=== PATIENT | male | born 1955 | race Caucasian/White ===

== ENCOUNTER 2019-04-24 08:01 | Outpatient (RCR) | payer OTHER, SELFPAY ==
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
--- NOTE | 2019-05-07 08:10 | PCPTNOTE ---
Mr. Orantes has received 4 Pysical therapy treatments. Treatments have consisted of moist heat and interferential electrical stimulation to posterior neck to decrease pain and decrease muscle tightness. Initially patient was given neuromuscular retraining but he returned on the next visit reporting of increase symptoms. We then began manual therapy with soft tissue mobilization, cranial release, cervical distraction and stretching with the patient. He reports he feels a little better when he leaves here but his symptoms do return. If you have any question please give us a call at [phone]. Thank you. Denver Stubbs PTA Supervised by: Victor Hugo Montilla DPT
== END 2019-05-28 13:20 | disposition home or self-care (01) ==
LOC: CHSPT 08:01
DX: S06.0X0A Concussion without loss of consciousness, initial encounter (principal); H83.2X3 Labyrinthine dysfunction, bilateral
CPT/HCPCS: 97014; 97112; 97140; 97162; G0283

== ENCOUNTER 2019-08-23 16:28 | Outpatient (CLI) | payer OTHER, SELFPAY ==
[2019-08-23 17:22] LABS: Carcinoembryonic Antigen 1.1 ng/mL (0.0-3.0)
== END 2019-08-23 16:29 | disposition home or self-care (01) ==
PROVIDERS: PCP Family Medicine; Visit Provider Surgery
DX: C18.9 Malignant neoplasm of colon, unspecified (principal)
CPT/HCPCS: 36415; 82378

== ENCOUNTER 2019-09-10 10:31 | Outpatient (CLI) | payer OTHER, SELFPAY ==
--- NOTE | ~2019-09-10 | CT_ITS ---
EXAMINATION: CT abdomen pelvis wo con DATE: 09/10/2019 10:46 INDICATION: Right upper quadrant abdominal pain. TECHNIQUE: Computed tomography (CT) of the abdomen and pelvis was performed without intravenous contr ast. Automated exposure control and iterative reconstruction technique were employed. The dose-length product was 567.15 mGy-cm. COMPARISON: CT abdomen and pelvis 12/10/2018, 09/13/2017 FINDINGS: The visualized portions of the lung bases demonstrate a 5 mm nodule in left lower lobe, sta ble from 08/17/2017, likely benign. No pleural effusion. The heart size is normal. There are coronary a rtery calcifications. No pericardial effusion. There are surgical clips around the gastroesophageal j unction. The liver and spleen are normal. There is a gallstone in the gallbladder, which is normal in size. The pancreas, adrenal glands, and kidneys are normal. There is no urolithiasis. The prostate i s mildly enlarged. There is diverticulosis of the colon without evidence of diverticulitis. There are changes of right hemicolectomy. There are no pathologically enlarged lymph nodes. There is no free i ntraperitoneal fluid. There is mild thoracolumbar spondylosis. IMPRESSION: 1. Cholelithiasis. No evidence of acute cholecystitis. Reviewed, dictated and finalized at location A.
== END 2019-09-10 10:32 | disposition home or self-care (01) ==
PROVIDERS: PCP Family Medicine; Visit Provider Family Medicine
DX: R10.11 Right upper quadrant pain (principal); R61 Generalized hyperhidrosis; Z85.038 Personal history of other malignant neoplasm of large intestine; K80.20 Calculus of gallbladder without cholecystitis without obstruction
CPT/HCPCS: 74176

== ENCOUNTER 2019-09-20 07:35 | Outpatient (CLI) | payer OTHER, SELFPAY ==
--- NOTE | ~2019-09-20 | NM_ITS ---
EXAMINATION: NM hepatobiliary wo pharm DATE: 09/20/2019 10:32 INDICATION: Right upper quadrant abdominal pain. COMPARISON: CT abdomen and pelvis 09/10/2019 TECHNIQUE: 5.0 mCi Tc-99m mebrofenin (Choletec) was administered intravenously. Scintigraphic images of the abdomen were obtained for one hour. Then, the patient drank 8 oz Ensure, and imaging was cont inued for 60 minutes. FINDINGS: There is normal clearance of radiotracer from the blood pool. There is homogeneous tracer u ptake by the liver. Activity progresses to the bowel and gallbladder. Gallbladder ejection fraction (GBEF) was 30%. Note that with this technique, normal GBEF >= 33%. IMPRESSION: 1. Low gallbladder ejection fraction, consistent with gallbladder dysfunction and/or chronic cholecy stitis. Reviewed, dictated and finalized at location A. IMPRESSION: 1. Low gallbladder ejection fraction, consistent with gallbladder dysfunction and/or chronic cholecystitis.
== END 2019-09-20 07:36 | disposition home or self-care (01) ==
PROVIDERS: PCP Family Medicine; Visit Provider Family Medicine
DX: R10.11 Right upper quadrant pain (principal); R93.89 Abnormal findings on diagnostic imaging of other specified body structures
CPT/HCPCS: 78226; A9537

== ENCOUNTER 2019-10-17 16:42 | Outpatient (CLI) | payer OTHER, SELFPAY ==
[2019-10-17 17:35] LABS: Alanine Aminotransferase 21 U/L (4-50); Albumin Level 4.2 g/dL (3.5-5.1); Alkaline Phosphatase 49 U/L (38-126); Amylase 96 U/L (30-110); Aspartate Amino Transferase 27 U/L (17-59); Bilirubin,Total 0.9 mg/dL (0.2-1.3); Lipase 52 U/L (23-300)
[2019-10-17 17:38] LABS: Blood Urea Nitrogen 18 mg/dL (9-20); Calcium 9.1 mg/dL (8.4-10.2); Carbon Dioxide 30 mmol/L (22-30); Chloride 103 mmol/L (98-107); Estimated Glomerular Filt Rate > 60; Glucose 117 mg/dL (75-110); Potassium 4.2 mmol/L (3.4-5.0); Sodium 140 mmol/L (137-145)
== END 2019-10-17 16:43 | disposition home or self-care (01) ==
PROVIDERS: PCP Family Medicine; Referring Provider Anesthesiology; Visit Provider Surgery
DX: Z01.812 Encounter for preprocedural laboratory examination (principal); K80.20 Calculus of gallbladder without cholecystitis without obstruction; E11.9 Type 2 diabetes mellitus without complications
CPT/HCPCS: 36415; 80048; 80076; 82150; 83690; 86850; 86900; 86901

== ENCOUNTER 2019-10-18 00:20 | Outpatient (CLI) | payer OTHER, SELFPAY ==
[2019-10-19 00:18] LABS: SARS-CoV-2 RNA PCR Negative
== END 2019-10-18 00:21 | disposition home or self-care (01) ==
LOC: ANHCOVIDDT 00:20
PROVIDERS: PCP Family Medicine; Visit Provider Surgery
DX: Z01.812 Encounter for preprocedural laboratory examination (principal); Z11.59 Encounter for screening for other viral diseases
CPT/HCPCS: 87635; C9803; U0003

== ENCOUNTER 2019-10-18 09:18 | Outpatient (CLI) | payer OTHER, SELFPAY ==
--- NOTE | 2019-10-18 10:12 | ECG_ITS ---
Measurements Intervals [place] Rate: 74 P: 35 ID: 154 QRS: 45 QRSD: 106 T: 118 QT: 384 QTc: 428 Interpretive Statements SINUS RHYTHM ANTEROSEPTAL INFARCT, AGE INDETERMINATE BORDERLINE ST-T WAVE ABNORMALITY- ANTEROLAT/LAT LEADS BASELINE ARTIFACT- II, III, AVF ABNORMAL ECG Electronically Signed On 10-18-2019 10:37:05 CDT by Leon Roldan D.O.
== END 2019-10-18 09:19 | disposition home or self-care (01) ==
PROVIDERS: PCP Family Medicine; Visit Provider Anesthesiology
DX: I10 Essential (primary) hypertension (principal); R94.31 Abnormal electrocardiogram [ECG] [EKG]
CPT/HCPCS: 93005

== ENCOUNTER 2019-10-21 01:36 | Day surgery (SDC) | payer OTHER, SELFPAY ==
[2019-10-11 15:24] VITALS: BMI 26.4
[2019-10-21] VITALS (7 sets, daily range): BP systolic 132–178; BP diastolic 77–99; PULSE 63–91; RESP 16–21; TEMP 36.5–36.6; O2SAT 98–100
[2019-10-21] MEDS: LACTATED RINGERS 1,000 ML 30 ML IV CONT ×2 (11:30→14:43)
--- NOTE | 2019-10-21 11:44 | WPDANESEPPF ---
Anes - Initial Pre Proc Eval Procedure: Operation Date: 10/21/19 14:00 Proposed Procedures p Laparoscopic Cholecystectomy, Possible Open - Luis Parish DO Date/Time: 10/21/19 11:44 Surgeon: Luis Parish DO Pre Op Diagnosis: Symptomatic Cholelithiasis Patient Data Age: 64 Gender: M Height: 6 ft Weight: 88.45 kg Allergies Allergy/AdvReac Type Severity Reaction Status Date / Time No Known Allergies Allergy Verified 10/11/19 14:53 Home Medications Medication Instructions Recorded Confirmed Type carvedilol 12.5 mg tablet 12.5 mg PO Q12H 03/05/19 10/11/19 History glimepiride 4 mg tablet 4 mg PO QAM 03/05/19 10/11/19 History metformin 850 mg tablet 850 mg PO BID 03/05/19 10/11/19 History omeprazole 40 mg capsule,delayed 40 mg PO DAILY 03/05/19 10/11/19 History release simvastatin 40 mg tablet 40 mg PO HS 03/05/19 10/11/19 History aspirin 81 mg tablet,delayed 81 mg PO DAILY 09/24/19 10/11/19 History release insulin glargine 100 unit/mL 32 unit SUB-Q HS 09/24/19 10/11/19 History subcutaneous solution lisinopril 10 mg tablet 10 mg PO DAILY 09/24/19 10/11/19 History trazodone 50 mg PO HS PRN 10/11/19 10/11/19 History Patient hx anesthesia problems: none Family hx anesthesia problems: none PMFSH Past Medical History Medical History (Updated 10/21/19 @ 11:44 by Chris Whitman MD) CAD (coronary artery disease) Cancer of transverse colon Carpal tunnel syndrome Diabetes GERD (gastroesophageal reflux disease) HTN (hypertension) Surgical History Surgical History (Updated 10/21/19 @ 11:44 by Chris Whitman MD) Finger amputee H/O hernia repair 2018 H/O right knee surgery Hiatal hernia with GERD 1989 History of hand surgery History of right hemicolectomy with ileocolic anastomsis in 2019 Hx of CABG Family History Family History Sibling Family history of malignant neoplasm Father Family history of chronic obstructive pulmonary disease Hypertension Heart disease Mother Hypertension Cancer Sibling Cancer Sibling Cancer Sibling Cancer Social History Social History Smoking status: Former smoker Smoking end date: 04/17/02 Alcohol intake: never Substance use: never Gender identity (if verbalized by the patient): Male Anes - Eval Final PreProcedure Day of Procedure 10/21/19 11:44 Patient weight: overweight Heart: regular rate and rhythm Lungs: decreased breath sounds Airway: Mallampati scale class II Neurological: alert and oriented Last oral intake: >/= 8 hours ASA classification: III Emergent: no Anesthetic plan: proceed Anesthesia type and monitoring: general ETT and standard monitoring Informed Consent: The patient's anesthetic plan and its attendant risks and benefits were discussed with the patient/family/POA. Questions were solicited and answers provided to the satisfaction of the patient/family/POA.
[2019-10-21 12:04] LABS: Glucose Point of Care 196 (65-105)
[2019-10-21] MEDS: IBUPROFEN IV 800 MG/200 ML 800 MG/200 ML BAG 400 MG IVPB (12:15)
--- NOTE | 2019-10-21 13:25 | WPDHPUPDATE1 ---
History and Physical Update Update Date/Time: 10/21/19 13:25 History and Physical has been reviewed, including an updated exam of the patient. There are NO changes in the patient's condition. Risks, benefits, and alternatives have been discussed and questions answered. Patient agrees to proceed with procedure.
[2019-10-21] MEDS: ceFAZolin 2 GM/D5W 50 ML 2 GM/50 ML BAG IVPB (13:41)
[2019-10-21] MEDS: BUPIVACAINE/EPINEPHRINE 0.5% 30 ML VIAL INFILTRATE (14:00)
--- NOTE | 2019-10-21 15:04 | SUR.PHASEI ---
DR WESTBROOK SPEAKING WITH .
--- NOTE | 2019-10-21 15:06 | PM.PROC ---
Procedure Note - Detailed Date of procedure: 10/21/19 Pre-op diagnosis: Symptomatic Cholelithiasis Post-op diagnosis: same Procedure performed: Laparoscopic Cholecystectomy Description of procedure: Procedure as well as risks, benefits, and alternatives were discussed with patient. Written consent was obtained and placed in chart prior to procedure. The patient was brought back to surgical suite. Patient was placed in supine position on operating table. Time-out was done to confirm patient and procedure. Patient was then intubated by the anesthesia department. Abdomen was prepped and draped in sterile fashion using chlorhexidine prep. 0.5% bupivacaine with epinephrine was infiltrated at each site of incision. An 11 millimeter vertical incision was made at the inferior portion of the umbilicus using a 15 blade scalpel. Blunt dissection was carried down to the linea alba. The linea alba was then incised using a 15 blade scalpel. The peritoneum was then bluntly entered. An 11 millimeter trocar was inserted and cabon dioxied insuflation was used to create a pneumoperitoneum. The camera was inserted and the abdomen was inspected. The patient was placed in reverse Trendelenberg position and rotated slightly to the left. A 5 millimeter incision was made in the epigastric region, and a 5 millimeter trocar was inserted under direct visualization. Two 5 millimeter incisions were made in the right upper quadrant, and two 5 millimeter trocars were inserted under direct visualization. The gallbladder was identified and grasped at the fundus and retracted superiorly. It was then grasped at the infundibulum retracted laterally. Careful dissection around the neck of the gallbladder was performed using blunt dissection with a [place] grasper and hook electrocautery. The cystic duct was identified, and a window was created behind it. The cystic artery was also identified and a window was created behind it. The critical view of safety was identified, visualizing the cystic duct running directly into the neck of the gallbladder, and the cystic artery running directly into the wall of the gallbladder. A 5 millimeter clip rand maker was then used to place 2 clips proximally and 1 clip distally on both the cystic duct and cystic artery. They were then both transected using endoscopic scissors. Once safely away from the haily hepatitis, the gallbladder was dissected free from the liver bed using hook electrocautery. Hemostasis was achieved along the way. The gallbladder was removed completely and then removed through the umbilical port. The liver bed was then inspected. Hemostasis appeared adequate, and our clips appeared secure. The area was gently irrigated with sterile saline. No other abnormalities were seen. The patient was flattened out in bed, and 1 final inspection was made around the abdominal cavity. The ports were then removed under direct visualization, the camera was removed, and the pneumoperitoneum was released. The fascia of the umbilical incision was approximated using an 0 Vicryl [id number] suture. The skin of the incisions was approximated using 4-0 Monocryl subcuticular sutures. Exofin glue was applied on top. The patient was then awakened from anesthesia, extubated, and transferred to recovery. Anesthesia: GETA and local (0.5% bupivicaine with epinephrine) Surgeon: Luis Parish DO Estimated blood loss (mL): 5 Pathology: yes Complications: No immediate complications Condition: stable Disposition: same day Findings: This is a 64-year-old man who presented with right upper quadrant pain off and on for the past several months. He had undergone CT of his abdomen and pelvis which showed evidence of cholelithiasis. He had a gallbladder HIDA scan a also which showed slightly decreased gallbladder ejection fraction at 30%. Discussions were made with the patient was treatment options, and decision was made to proceed with laparoscopic cholecy
[2019-10-22 07:35] LABS: Glucose Point of Care 215 (65-105)
== END 2019-10-21 16:10 | disposition home or self-care (01) ==
PROVIDERS: PCP Family Medicine; Visit Provider Surgery
PROC: 0FT44ZZ Resection of Gallbladder, Percutaneous Endoscopic Approach (ICD-10-PCS; CPT 47562; principal; 2019-10-21 14:00)
DX: K80.10 Calculus of gallbladder with chronic cholecystitis without obstruction (principal); I10 Essential (primary) hypertension; I25.10 Atherosclerotic heart disease of native coronary artery without angina pectoris; E11.9 Type 2 diabetes mellitus without complications; K21.9 Gastro-esophageal reflux disease without esophagitis; Z85.038 Personal history of other malignant neoplasm of large intestine; Z79.82 Long term (current) use of aspirin; Z79.4 Long term (current) use of insulin; Z79.84 Long term (current) use of oral hypoglycemic drugs; Z95.1 Presence of aortocoronary bypass graft; Z90.49 Acquired absence of other specified parts of digestive tract; Z98.0 Intestinal bypass and anastomosis status; Z87.891 Personal history of nicotine dependence
CPT/HCPCS: 47562; 87635; 88304; 93005; A9270; C9803; J0131; J0330; J0690; J1100; J1170; J1741; J2250; J2405; J2704; J3010; J7030; J7120; U0003

== ENCOUNTER 2020-03-17 13:53 | Outpatient (CLI) | payer OTHER, SELFPAY ==
[2020-03-17 15:24] LABS: Carcinoembryonic Antigen 1.6 ng/mL (0.0-3.0)
== END 2020-03-17 13:54 | disposition home or self-care (01) ==
PROVIDERS: PCP Family Medicine; Visit Provider Surgery
DX: C18.9 Malignant neoplasm of colon, unspecified (principal)
CPT/HCPCS: 36415; 82378

== ENCOUNTER 2020-11-29 18:17 | Inpatient (IN) | payer OTHER, MEDICARE, SELFPAY ==
--- NOTE | ~2020-11-29 | XR_ITS ---
EXAMINATION: XR foot RT min 3V DATE: 11/29/2020 18:52 INDICATION: Pain, swelling and erythema in the region of the second metatarsophalangeal joint after s tepping on a nail. TECHNIQUE: Dorsoplantar, two oblique and lateral views of the right foot were obtained. COMPARISON: None. FINDINGS: Bone alignment is normal. No acute fracture. No radiopaque foreign bodies. Juxta articular erosion at the medial head of the first proximal phalanx with corticated margins and overhanging edges suggesti ng gout. Additional lucency at the head of the fourth proximal phalanx which could represent an addit ional erosion or potentially an old healed fracture. Mild polyarticular osteoarthritis at the first m etatarsophalangeal and multiple tarsal metatarsal and interphalangeal joints. Moderate-sized Achilles and plantar calcaneal spurs. Additional enthesophytes at the talar and lateral malleolar insertion o f the anterior talofibular ligament which may represent sequela of chronic sprain. Prominent soft tis kj swelling over the dorsum of the foot and about the ankle. IMPRESSION: 1. No acute fracture or radiopaque foreign body. 2. Erosion at the head of the head of the first proximal phalanx and likely at the head of the fourth proximal phalanx which are suspicious for gout. Reviewed, dictated and finalized at location A.
--- NOTE | ~2020-11-29 | MR_ITS ---
EXAMINATION: MR foot RT wo/w con DATE: 11/30/2020 18:10 INDICATION: Right foot puncture wound and cellulitis. TECHNIQUE: Magnetic resonance imaging (MRI) of the right foot was performed without and with 15 mL Mu ltiHance intravenous contrast. Sequences included sagittal STIR FSE and T1-weighted FSE and short-axi s and long-axis T1-weighted FSE and T2-weighted FS FSE. Postcontrast sequences included short-axis an d long-axis T1-weighted FS FSE. COMPARISON: Right foot radiographs 11/29/2020 FINDINGS: Bone alignment is normal. No acute fracture. There is mild to moderate osteoarthritis of ma ny of the midfoot joints, metatarsophalangeal joints, and interphalangeal joints. An erosion at the m edial aspect of the head of first proximal phalanx may be secondary to gout. There are small effusion s of the first-third metatarsophalangeal joints. Lisfranc ligament is intact. There is widespread mil d to moderate fatty atrophy of the musculature. There is widespread increased T2-weighted signal inte nsity in the musculature, consistent with subacute on chronic denervation. There is widespread subcut aneous edema in the foot. There are foci of gas in the soft tissues between the third and fourth digi ts. IMPRESSION: 1. No specific evidence of osteomyelitis. 2. Foci of gas in the plantar soft tissues between the third and fourth digits, likely introduced by the puncture wound. 3. Polyarticular osteoarthritis. 4. Erosion at medial aspect of head of first proximal phalanx, which may be secondary to gout. 5. Small effusions of first-third metatarsophalangeal joints. Reviewed, dictated and finalized at location B. IMPRESSION: 1. No specific evidence of osteomyelitis. 2. Foci of gas in the plantar soft tissues between the third and fourth digits, likely introduced by the puncture wound. 3. Polyarticular osteoarthritis. 4. Erosion at medial aspect of head of first proximal phalanx, which may be sec ondary to gout. 5. Small effusions of first-third metatarsophalangeal joints.
--- NOTE | ~2020-11-29 | XR_ITS ---
XR chest PICC line 12/01/2020 14:29 Indication: PICC line placement Procedure: AP portable chest Comparison: Comparison to multiple prior studies sequentially, with oldest reviewed study dated 08/07. Findings: PICC line tip in the SVC. The cardiomediastinal silhouette. Status post median sternotomy f or CABG. Stable lingular atelectasis/scarring. No acute focal pneumonia, edema, effusion or pneumotho rax. Impression: 1: PICC line tip in the SVC. Reviewed, dictated and finalized at location A. Impression: 1: PICC line tip in the SVC.
--- NOTE | ~2020-11-29 | US_ITS ---
EXAMINATION:US venous doppler LE RT INDICATION:Right lower extremity swelling TECHNIQUE: Multiple grayscale, color flow and Doppler images of the right lower extremity deep venous systems were obtained and reviewed. COMPARISON:No prior studies for comparison. FINDINGS: The common femoral, superficial femoral and popliteal veins demonstrate normal respiratory variation, augmentation and compressibility. Color flow is also seen within the posterior tibial, pe roneal, greater saphenous and profunda veins. IMPRESSION: 1: No lower extremity deep venous thrombosis. Reviewed, dictated and finalized at location A.
[2020-11-29 18:22] VITALS: BP 140/68; PULSE 83; RESP 18; TEMP 36.5; O2SAT 100
[2020-11-29 18:31] LABS: Basophils Percent Auto 0.2 % (0.2-1.2); Eosinophils Absolute Auto 0.1 K/mm3 (0-0.3); Eosinophils Percent Auto 1.2 % (0-4.4); Hematocrit 37.6 % (42.0-52.0); Hemoglobin 12.6 g/dL (14.0-18.0); Immature Granulocyte Absolute 0.03 K/mm3 (0.00-0.031); Immature Granulocyte Percent A 0.4 % (0-0.5); Lymphocytes Absolute Auto 1.01 K/mm3 (0.9-3.2); Lymphocytes Percent Auto 11.9 % (18.3-44.2); Mean Corpuscular HGB Conc 33.5 g/dl (32-36); Mean Corpuscular Hemoglobin 30.4 pg (26-34); Mean Corpuscular Volume 90.8 fl (80-100); Mean Platelet Volume 9.6 fl (7.4-10.4); Monocytes Absolute Auto 0.6 K/mm3 (0.1-0.6); Monocytes Percent Auto 7.1 % (2.6-8.5); Neutrophils Absolute Auto 6.7 K/mm3 (1.3-6.7); Neutrophils Percent Auto 79.2 % (45.5-73.1); Platelet Count Result 192 k/mm3 (150-375); Red Blood Count 4.14 M/mm3 (4.6-6.20); Red Cell Distribution Width 11.9 % (11.5-14.5); White Blood Count 8.5 K/mm3 (4.5-10.0)
[2020-11-29 19:02] LABS: Alanine Aminotransferase 33 U/L (4-50); Albumin Level 3.6 g/dL (3.5-5.1); Alkaline Phosphatase 114 U/L (38-126); Anion Gap 5 mmol/L (8-16); Aspartate Amino Transferase 25 U/L (17-59); Blood Urea Nitrogen 13 mg/dL (9-20); Calcium 9.3 mg/dL (8.4-10.2); Carbon Dioxide 30 mmol/L (22-30); Chloride 100 mmol/L (98-107); Estimated CRCL calculation 113 ml/min; Estimated Glomerular Filt Rate > 60; Glucose 349 mg/dL (65-110); Potassium 4.3 mmol/L (3.4-5.0); Sodium 135 mmol/L (137-145)
[2020-11-29 22:09] VITALS: BP 148/92; PULSE 80; RESP 20; TEMP 36.7; O2SAT 99
--- NOTE | 2020-11-29 22:19 | ED.GENADULT ---
HPI - General Adult General Chief complaint: Extremity Injury, Lower Stated complaint: sent from urgent care/ stepped on nail Time Seen by Provider: 11/29/20 19:23 History of Present Illness HPI narrative: Patient is a 67-year-old gentleman who presents the emergency department with chief complaint of right lower extremity cellulitis. Patient reports that he stepped on a nail that went through his shoe and subsequently has developed redness of the dorsum of his right foot. Patient reports streaking up his right leg patient states that it has become painful and reports that he was seen in urgent care and was sent to the emergency department for further evaluation. The patient has been taking Augmentin since Monday without improvement. Related Data Home Medications Medication Instructions Recorded Confirmed carvedilol 12.5 mg tablet 12.5 mg PO Q12H 03/05/19 10/21/19 glimepiride 4 mg tablet 4 mg PO QAM 03/05/19 10/21/19 metformin 850 mg tablet 850 mg PO BID 03/05/19 10/21/19 omeprazole 40 mg capsule,delayed 40 mg PO DAILY 03/05/19 10/21/19 release simvastatin 40 mg tablet 40 mg PO HS 03/05/19 10/21/19 aspirin 81 mg tablet,delayed 81 mg PO DAILY 09/24/19 10/21/19 release insulin glargine 100 unit/mL 32 unit SUB-Q HS 09/24/19 10/21/19 subcutaneous solution lisinopril 10 mg tablet 10 mg PO DAILY 09/24/19 10/21/19 trazodone 50 mg PO HS PRN 10/11/19 10/21/19 Allergies Allergy/AdvReac Type Severity Reaction Status Date / Time No Known Allergies Allergy Verified 10/21/19 12:21 Review of Systems Review of Systems: A 10 system review of systems was completed on the patient and is negative except for what is stated in the HPI. Nursing and ancillary documentation was reviewed. [facility] Past Medical History Medical History CAD (coronary artery disease) Cancer of transverse colon Carpal tunnel syndrome Diabetes GERD (gastroesophageal reflux disease) HTN (hypertension) Surgical History Surgical History Finger amputee H/O hernia repair 2019 H/O right knee surgery Hiatal hernia with GERD 1990 History of hand surgery History of right hemicolectomy with ileocolic anastomsis in 2019 Hx of CABG Family History Family History Sibling Family history of malignant neoplasm Father Family history of chronic obstructive pulmonary disease Hypertension Heart disease Mother Hypertension Cancer Sibling Cancer Sibling Cancer Sibling Cancer Social History Social History Smoking status: Former smoker Smoking end date: 04/17/02 Alcohol intake: never Substance use: never Gender identity (if verbalized by the patient): Male Exam Narrative: GENERAL: Well-appearing, well-nourished, and in no acute distress. HEAD: Normocephalic, atraumatic. EYES: PERRLA and EOMI. ENT: Nares clear, no rhinorrhea or epistaxis. Mucous membranes moist. NECK: Supple. CHEST: Clear to auscultation. No respiratory distress. HEART: Regular rate and rhythm. No murmur heard. Normal peripheral pulses. ABDOMEN: Soft, nontender, nondistended, normal active bowel sounds. EXTREMITIES: Normal range of motion. No edema. There is erythema of the dorsum of the right foot extending above the ankle. There is a small puncture wound on the plantar aspect of the right foot SKIN: Warm, dry, no rash. NEURO: No focal deficits. Alert and oriented x3. PSYCH: Normal mood and affect. Course Vital Signs Vital signs: Vital Signs Temperature 36.5 C 11/29/20 18:22 Pulse Rate 83 11/29/20 18:22 Respiratory Rate 18 11/29/20 18:22 Blood Pressure 140/68 11/29/20 18:22 Pulse Oximetry 100 11/29/20 18:22 Temperature 36.7 C 11/29/20 22:09 Pulse Rate 80 11/29/20 22:09 Respirator
--- NOTE | 2020-11-29 22:28 | PC.NURSE ---
Patient's bedside glucose is 257.
[2020-11-29 22:33] LABS: Glucose Point of Care 257 mg/dl (65-105)
[2020-11-29 22:38] LABS: Lactic Acid Reflex 1.1 mmol/L (0.7-2.1)
[2020-11-30] VITALS (32 sets, daily range): BP systolic 121–182; BP diastolic 67–100; PULSE 64–80; RESP 16–20; TEMP 36.1–36.9; O2SAT 94–100; BMI 23.3
--- NOTE | 2020-11-30 02:33 | PM.IMHP ---
H&P: HPI History of Present Illness Date/Time: 11/30/20 02:33 Chief Complaint: Right leg swelling and pain Narrative: Patient is a 67-year-old gentleman who presents the emergency department with chief complaint of right lower extremity swelling and pain. He reports he stepped on a nail that went through his shoe through his so all the way to his top of his feet. He developed redness of the dorsum of the right foot. Call his primary care doc was unable to see him that day and hence was put on antibiotics Augmentin. The swelling increased and the leg became more painful and hence he went to urgent care. He was sent to the ER for further evaluation. He reports warmth in his right lower extremity up to mid leg and redness in the area but no fever or chills. Review of Systems Review of Systems: - CONSTITUTIONAL: Denies weight loss, fever and chills. - HEENT: Denies changes in vision and hearing - RESPIRATORY: Denies SOB and cough. - CV: Denies palpitations and CP. - GI: Denies abdominal pain, nausea, vomiting and diarrhea. - : Denies dysuria and urinary frequency. - MSK: Denies myalgia and joint pain. Reports Right leg pain and swelling - SKIN: Denies rash and pruritus. - NEUROLOGICAL: Denies headache and syncope. - PSYCHIATRIC: Denies recent changes in mood. Denies anxiety and depression. All systems reviewed & are unremarkable except as noted in HPI and below Constitutional: Constitutional: Reports fatigue and Reports weakness Neurologic: Reports weakness Endocrine: Endocrine: Reports fatigue [facility] Past Medical History Medical History (Updated 11/30/20 @ 03:30 by Jace Flor MD) CAD (coronary artery disease) Status post CABG Cancer of transverse colon Status post right hemicolectomy Carpal tunnel syndrome Diabetes GERD (gastroesophageal reflux disease) HTN (hypertension) Surgical History Surgical History Finger amputee H/O hernia repair 2019 H/O right knee surgery Hiatal hernia with GERD 1989 History of hand surgery History of right hemicolectomy with ileocolic anastomsis in 2019 Hx of CABG Family History Family History Sibling Family history of malignant neoplasm Father Family history of chronic obstructive pulmonary disease Hypertension Heart disease Mother Hypertension Cancer Sibling Cancer Sibling Cancer Sibling Cancer Social History Social History Smoking status: Former smoker Smoking end date: 04/17/02 Alcohol intake: never Substance use: never Gender identity (if verbalized by the patient): Male Meds Home Medications and Allergies Home Medications Medication Instructions Recorded Confirmed Type carvedilol 12.5 mg tablet 12.5 mg PO Q12H 03/05/19 10/21/19 History glimepiride 4 mg tablet 4 mg PO QAM 03/05/19 10/21/19 History metformin 850 mg tablet 850 mg PO BID 03/05/19 10/21/19 History omeprazole 40 mg capsule,delayed 40 mg PO DAILY 03/05/19 10/21/19 History release simvastatin 40 mg tablet 40 mg PO HS 03/05/19 10/21/19 History aspirin 81 mg tablet,delayed 81 mg PO DAILY 09/24/19 10/21/19 History release insulin glargine 100 unit/mL 32 unit SUB-Q HS 09/24/19 10/21/19 History subcutaneous solution lisinopril 10 mg tablet 10 mg PO DAILY 09/24/19 10/21/19 History trazodone 50 mg PO HS PRN 10/11/19 10/21/19 History hydrocodone-acetaminophen [[place]] 1 - 2 tablet PO Q4H PRN #10 tablet 10/21/19 Rx Allergies Allergy/AdvReac Type Severity Reaction Status Date / Time No Known Allergies Allergy Verified 10/21/19 12:21 Vital Signs Vital Signs - 24 hr 11/29/20 18:22 11/29/20 22:09 11/30/20 00:21 Temperature 97.7 F 98.1 F 97.9 F Pulse Rate 83 80 73 Respiratory Rate 18 20 18 Blood Pressure 140/68 148/92 H 156/93 H Pulse Oximetry 100 9
[2020-11-30] MEDS: TETANUS/DIPHTHERIA TOXOIDS ADSORB 0.5 ML VIAL (*BKC) IM (03:46)
[2020-11-30] MEDS: TETANUS IMMUNE GLOBULIN 250 UNITS/ML SYRINGE IM (03:47)
--- NOTE | 2020-11-30 06:30 | ECG_ITS ---
Measurements Intervals [place] Rate: 74 P: 35 AL: 138 QRS: 23 QRSD: 110 T: 93 QT: 391 QTc: 436 Interpretive Statements SINUS RHYTHM CONSIDER ANTERIOR INFARCT, AGE INDETERMINATE BORDERLINE ST-T WAVE ABNORMALITY- ANTEROLAT/HIGH LAT LEADS BASELINE ARTIFACT- I, III, AVL ABNORMAL ECG Electronically Signed On 11-30-2020 7:28:10 CDT by Leon Roldan D.O.
[2020-11-30 06:32] LABS: Glucose Point of Care 178 mg/dl (65-105)
--- NOTE | 2020-11-30 06:39 | PC.NURSE ---
0630 patient states he is having some chest pain and headache. ERP notified, MARIO do EKG.
[2020-11-30] MEDS: ACETAMINOPHEN 325 MG TABLET 650 MG PO (06:46)
--- NOTE | 2020-11-30 07:28 | PM.IMPN ---
Progress Note: A&P Assessment and Plan (1) Puncture wound of foot, right: Qualifiers: Encounter type: initial encounter Qualified Code(s): S91.331A - Puncture wound without foreign body, right foot, initial encounter Code(s): S91.331A - Puncture wound without foreign body, right foot, initial encounter Status: Acute Assessment and Plan: Tetanus prophylaxis Tdap received on 03/24/2020. No other tetanus dosing present in the past, check record in [facility] web site. Received another dose of tetanus booster along with tetanus immunoglobulin. Continue antibiotics with imipenem and vancomycin. Pain control with [place] and morphine. Deescalate opiates if pain is adequately controlled. (2) Cellulitis of foot, right: Code(s): L03.115 - Cellulitis of right lower limb Status: Acute Assessment and Plan: Infectious disease service recommendation appreciated. Continue imipenem and vancomycin until 12/27. Longer duration if MRI is concerning for complications. Orthopedic service recommendations appreciated. MRI of the foot is pending for any abscess formation. (3) Diabetes: Code(s): E11.9 - Type 2 diabetes mellitus without complications Status: Acute Assessment and Plan: Continue insulin sliding scale. Hemoglobin A1c is 13.2. His home medication has not been reconciled yet. (4) HTN (hypertension): Code(s): I10 - Essential (primary) hypertension Status: Acute Assessment and Plan: Continue to monitor. (5) CAD (coronary artery disease): Code(s): I25.10 - Atherosclerotic heart disease of [place] coronary artery without angina pectoris Status: Acute Assessment and Plan: Continue aspirin. He did complain of chest pain yesterday in the emergency department. EKG was done which was negative for any acute ischemic changes. (6) Cancer of transverse colon: Code(s): C18.4 - Malignant neoplasm of transverse colon Status: Acute Assessment and Plan: Continue to monitor. Additional Plan DVT prophylaxis Lovenox Full code Subjective Date/time seen: 11/30/20 07:28 Review of Systems Review of Systems: All systems reviewed & are unremarkable except as noted in HPI and below Exam Narrative: GENERAL: Well-appearing, well-nourished, and in no acute distress. NECK: Supple. Nontender CHEST: Clear to auscultation. No respiratory distress. HEART: Regular rate and rhythm. No murmur heard. Normal peripheral pulses. ABDOMEN: Soft, nontender, nondistended EXTREMITIES: Normal range of motion. Edema and swollen right lower leg with warmth up to mid leg. Right foot is swollen and tense tender and warm to touch. There is erythema of the dorsum of the right foot extending above the ankle. There is a small puncture wound on the plantar aspect of the right foot with small ulcer noted. NEURO: Alert and oriented x3. PSYCH: Normal mood and affect. Objective Data Vital Signs Vital Signs: Vital Signs - 24 hr 11/29/20 18:22 11/29/20 22:09 11/30/20 00:21 Temperature 36.5 C 36.7 C 36.6 C Pulse Rate 83 80 73 Respiratory Rate 18 20 18 Blood Pressure 140/68 148/92 H 156/93 H Pulse Oximetry 100 99 99 11/30/20 00:22 11/30/20 00:23 11/30/20 00:30 Temperature Pulse Rate Respiratory Rate Blood Pressure 156/93 H Pulse Oximetry 99 99 99 11/30/20 00:45 11/30/20 01:00 11/30/20 01:01 Temperature Pulse Rate Respiratory Rate Blood Pressure 160/100 H Pulse Oximetry 98 94 98 11/30/20 01:21 11/30/20 01:22 11/30/20 01:30 Temperature Pulse Rate Respiratory Rate Blood Pressure 146/74 H Pulse Oximetry 99 99 99 11/30/20 02:01 11/30/20 03:00 11/30/20 03:01 Temperature 36.8 C Pulse Rate 64 Respiratory Rate 17 Blood Pressure 121/67 134/73 Pulse Oximetry 97 97 11/30/20 03:15 11/30/20 03:30 11/30/20 03:45 Temperature Pulse Rate Respiratory Rate
--- NOTE | 2020-11-30 07:45 | ADMGEN ---
This patient, Ramirez Orantes Jr., was admitted to Medical Room 260-01. Patient/family oriented to hospital policies and general routines including ID bracelet, bed and alarms, visiting hours, pain management, procedures, bathroom and other care routines, personal items, smoking policy, room service/diet, and visiting hours. Information on how to activate the Rapid Response Team has been discussed. Patient/Family are encouraged to report perceived risks to care and to ask questions if they do not understand what they are told or what they should do.
[2020-11-30 08:02] LABS: Glucose Point of Care 175 mg/dl (65-105)
[2020-11-30 08:13] LABS: Basophils Percent Auto 0.7 % (0.2-1.2); Eosinophils Absolute Auto 0.1 K/mm3 (0-0.3); Eosinophils Percent Auto 1.5 % (0-4.4); Hematocrit 36.1 % (42.0-52.0); Hemoglobin 12.4 g/dL (14.0-18.0); Immature Granulocyte Absolute 0.04 K/mm3 (0.00-0.031); Immature Granulocyte Percent A 0.7 % (0-0.5); Lymphocytes Absolute Auto 0.82 K/mm3 (0.9-3.2); Lymphocytes Percent Auto 14.1 % (18.3-44.2); Mean Corpuscular HGB Conc 34.3 g/dl (32-36); Mean Corpuscular Hemoglobin 30.5 pg (26-34); Mean Corpuscular Volume 88.7 fl (80-100); Mean Platelet Volume 9.7 fl (7.4-10.4); Monocytes Absolute Auto 0.5 K/mm3 (0.1-0.6); Monocytes Percent Auto 8.7 % (2.6-8.5); Neutrophils Absolute Auto 4.3 K/mm3 (1.3-6.7); Neutrophils Percent Auto 74.3 % (45.5-73.1); Platelet Count Result 191 k/mm3 (150-375); Red Blood Count 4.07 M/mm3 (4.6-6.20); Red Cell Distribution Width 11.5 % (11.5-14.5); White Blood Count 5.8 K/mm3 (4.5-10.0)
[2020-11-30 09:08] LABS: Anion Gap 3 mmol/L (8-16); Blood Urea Nitrogen 12 mg/dL (9-20); Calcium 8.6 mg/dL (8.4-10.2); Carbon Dioxide 29 mmol/L (22-30); Chloride 99 mmol/L (98-107); Estimated CRCL calculation 162 ml/min; Estimated Glomerular Filt Rate > 60; Glucose 179 mg/dL (65-110); Potassium 4.1 mmol/L (3.4-5.0); Sodium 131 mmol/L (137-145)
[2020-11-30 10:07] LABS: Hemoglobin A1C 13.2 % (<5.7)
[2020-11-30] MEDS: HYDROcodone/acetaminophen (*CRX) 5-325 MG TABLET 1 TAB PO ×2 (10:19→21:07)
--- NOTE | 2020-11-30 11:36 | PM.CNOR ---
Assessment and Plan Additional Plan of 65-year-old male who has had a puncture wound right foot 4 days ago. Appears to have cellulitis in the foot but does not seem to be tracking at the ankle at this point. He is on antibiotics. I have consult Infectious Disease. He is scheduled to go down for an MRI scan with and without contrast. Abscess will need to be ruled out in the foot. There is an abscess on MRI scan then open debridement will be needed. Will review the MRI scan once it is done and proceed accordingly. History of Present Illness HPI Consult date: 11/30/20 Chief complaint: Right lower extremity cellulitis/puncture wound PMFSH Past Medical History Medical History (Updated 11/30/20 @ 03:30 by Jace Flor MD) CAD (coronary artery disease) Status post CABG Cancer of transverse colon Status post right hemicolectomy Carpal tunnel syndrome Diabetes GERD (gastroesophageal reflux disease) HTN (hypertension) Surgical History Surgical History Finger amputee H/O hernia repair 2018 H/O right knee surgery Hiatal hernia with GERD 1989 History of hand surgery History of right hemicolectomy with ileocolic anastomsis in 2019 Hx of CABG Family History Family History Sibling Family history of malignant neoplasm Father Family history of chronic obstructive pulmonary disease Hypertension Heart disease Mother Hypertension Cancer Sibling Cancer Sibling Cancer Sibling Cancer Social History Social History Smoking status: Former smoker Second hand tobacco smoke exposure: No Additional smoking assessment comments: quit smoking over 30 years ago Alcohol intake: never Substance use: never Substance use type: does not use Gender identity (if verbalized by the patient): Male Spiritual care concerns: No Meds Home Medications and Allergies Home Medications Medication Instructions Recorded Confirmed Type aspirin 81 mg tablet,delayed 81 mg PO DAILY 09/24/19 11/30/20 History release Allergies Allergy/AdvReac Type Severity Reaction Status Date / Time No Known Allergies Allergy Verified 11/30/20 09:03 Vital Signs Vital Signs - 24 hr 11/29/20 18:22 11/29/20 22:09 11/30/20 00:21 Temperature 36.5 C 36.7 C 36.6 C Pulse Rate 83 80 73 Respiratory Rate 18 20 18 Blood Pressure 140/68 148/92 H 156/93 H Pulse Oximetry 100 99 99 11/30/20 00:22 11/30/20 00:23 11/30/20 00:30 Temperature Pulse Rate Respiratory Rate Blood Pressure 156/93 H Pulse Oximetry 99 99 99 11/30/20 00:45 11/30/20 01:00 11/30/20 01:01 Temperature Pulse Rate Respiratory Rate Blood Pressure 160/100 H Pulse Oximetry 98 94 98 11/30/20 01:21 11/30/20 01:22 11/30/20 01:30 Temperature Pulse Rate Respiratory Rate Blood Pressure 146/74 H Pulse Oximetry 99 99 99 11/30/20 02:01 11/30/20 03:00 11/30/20 03:01 Temperature 36.8 C Pulse Rate 64 Respiratory Rate 17 Blood Pressure 121/67 134/73 Pulse Oximetry 97 97 11/30/20 03:15 11/30/20 03:30 11/30/20 03:45 Temperature Pulse Rate Respiratory Rate Blood Pressure Pulse Oximetry 99 99 100 11/30/20 04:00 11/30/20 04:01 11/30/20 04:24 Temperature Pulse Rate Respiratory Rate Blood Pressure 156/86 H Pulse Oximetry 99 100 97 11/30/20 04:30 11/30/20 04:45 11/30/20 05:00 Temperature Pulse Rate Respiratory Rate Blood Pressure 142/74 H Pulse Oximetry 99 99 99 11/30/20 05:01 11/30/20 05:15 11/30/20 05:30 Temperature Pulse Rate Respiratory Rate Blood Pressure Pulse Oximetry 99 99 99 11/30/20 05:45 11/30/20 06:00 11/30/20 07:02 Temperature 36.8 C 36.9 C Pulse Rate 68 Respiratory Rate 17 17 Blood Pressure 182/87 H 160/88 H Pulse Oximetry 100 97 10
--- NOTE | 2020-11-30 12:32 | WPDINFPN2 ---
Progress Note: A&P Assessment and Plan (1) Cellulitis of foot, right: Code(s): L03.115 - Cellulitis of right lower limb Status: Acute Assessment and Plan: Puncture wound with cellulitis REC Imipenem and Vanc through 12/27, longer if MRI concerning for complication Subjective Date/time seen: 11/30/20 12:32 Objective Data Vital Signs Vital Signs: Vital Signs - 24 hr 11/29/20 18:22 11/29/20 22:09 11/30/20 00:21 Temperature 36.5 C 36.7 C 36.6 C Pulse Rate 83 80 73 Respiratory Rate 18 20 18 Blood Pressure 140/68 148/92 H 156/93 H Pulse Oximetry 100 99 99 11/30/20 00:22 11/30/20 00:23 11/30/20 00:30 Temperature Pulse Rate Respiratory Rate Blood Pressure 156/93 H Pulse Oximetry 99 99 99 11/30/20 00:45 11/30/20 01:00 11/30/20 01:01 Temperature Pulse Rate Respiratory Rate Blood Pressure 160/100 H Pulse Oximetry 98 94 98 11/30/20 01:21 11/30/20 01:22 11/30/20 01:30 Temperature Pulse Rate Respiratory Rate Blood Pressure 146/74 H Pulse Oximetry 99 99 99 11/30/20 02:01 11/30/20 03:00 11/30/20 03:01 Temperature 36.8 C Pulse Rate 64 Respiratory Rate 17 Blood Pressure 121/67 134/73 Pulse Oximetry 97 97 11/30/20 03:15 11/30/20 03:30 11/30/20 03:45 Temperature Pulse Rate Respiratory Rate Blood Pressure Pulse Oximetry 99 99 100 11/30/20 04:00 11/30/20 04:01 11/30/20 04:24 Temperature Pulse Rate Respiratory Rate Blood Pressure 156/86 H Pulse Oximetry 99 100 97 11/30/20 04:30 11/30/20 04:45 11/30/20 05:00 Temperature Pulse Rate Respiratory Rate Blood Pressure 142/74 H Pulse Oximetry 99 99 99 11/30/20 05:01 11/30/20 05:15 11/30/20 05:30 Temperature Pulse Rate Respiratory Rate Blood Pressure Pulse Oximetry 99 99 99 11/30/20 05:45 11/30/20 06:00 11/30/20 07:02 Temperature 36.8 C 36.9 C Pulse Rate 68 Respiratory Rate 17 17 Blood Pressure 182/87 H 160/88 H Pulse Oximetry 100 97 100 11/30/20 07:30 11/30/20 08:00 Temperature 36.1 C L Pulse Rate 74 Respiratory Rate 16 18 Blood Pressure 138/84 Pulse Oximetry 100 100 Intake/Output Intake/Output: Intake & Output 11/27/20 11/28/20 11/29/20 11/30/20 23:59 23:59 23:59 23:59 Intake Total 100 1190 Balance 100 1190 Meds/Results Medications: Active Medications Generic Name Dose Route Start Last Admin Trade Name Freq PRN Reason Stop Dose Admin Acetaminophen 650 mg 11/29/20 22:15 11/30/20 06:46 Acetaminophen 325 Mg Tablet PO 650 mg Q4H PRN Administration Mild Pain (1-3) or Fever Hydrocodone Bitart/Acetaminophen 1 tab 11/29/20 22:15 11/30/20 10:19 Hydrocodone/Acetaminophen (*Crx) 5-325 Mg Tablet PO 1 tab Q4H PRN Administration Pain Rated 4-6 Dextrose 12.5 gm 11/30/20 03:24 Dextrose 50% 25 Gm/50 Ml Syringe IV PUSH PRN PRN Hypoglycemia Protocol Glucagon 1 mg 11/30/20 03:24 Glucagon For Inj 1 Mg Vial IM PRN PRN Hypoglycemia Protocol Glucose 15 gm 11/30/20 03:24 Glucose Oral Gel 15 Gm Of Glucse In 37.5 Gm Tube PO PRN PRN Hypoglycemia Protocol Imipenem/Cilastatin Sodium 500 mg in 100 mls @ 300 mls/hr 11/30/20 06:00 11/30/20 12:16 Primaxin 500 Mg/D5w 100 Ml IVPB 300 mls/hr Q6H RANDA Administration Vancomycin HCl 1,500 mg in 500 mls @ 333.333 mls/hr 11/30/20 11:00 11/30/20 12:05 Vancomycin 1,500 Mg/D5w 500 Ml IVPB Infused Q12H RANDA Infusion Dextrose 1,000 mls @ 100 mls/hr 11/30/20 03:24 Dextrose 5% 1,000 Ml IVPB PRN PRN Hypoglycemia Protocol Insulin Aspart 2 - 5 units 11/30/20 08:00 11/30/20 08:24 Insulin Aspart (*Bkc) 100 Units/Ml SUB-Q Not Given TIDWM RANDA Protocol Morphine Sulfate 4 mg 11/29/20 22:15 Morphine Sulfate (*Crx) 4 Mg/Ml Inj IV PUSH Q2H PRN Pain Rated 7-10 Ondansetron HCl 4 mg 11/29/20 22:15 Ondansetron Inj
[2020-11-30 12:37] LABS: Glucose Point of Care 239 mg/dl (65-105)
[2020-11-30] MEDS: INSULIN ASPART (*BKC) 100 UNITS/ML SUB-Q (12:38)
--- NOTE | 2020-11-30 17:02 | CONS_ITS ---
DATE OF CONSULTATION: 11/30/2020 REASON FOR CONSULTATION: Cellulitis of the right foot. HISTORY OF PRESENT ILLNESS: A 65-year-old male with diabetes mellitus. He reports his sugars generally are in the low 100s; however, in the last month, as he was unable to take his usual diabetic medication, he has been on no therapy. In particular, he was on one medicine for heart disease and one medicine for his diabetes, but these caused side effects including dizziness and fatigue. His physician stopped both of them at the patient's request, or the patient stopped on his own. His physician had prescribed a new medication, which was not yet available from the pharmacy. The patient does not remember the names of any of these 3 medications. The patient has had previous puncture wounds to the right foot with nails, although these seemed to heal within 10 days. Three days before admission, the patient stepped on a piece of plywood with a protruding nail. This entered his foot in the area of the third metatarsal head and went through his shoe, his sock, and into the dorsum of the foot. He did feel pain promptly and removed the nail, but did not perform first aid, nor did he examine the foot. Later that day, he took off his shoe and noted a bloody sock. Swelling then began that afternoon or that evening and the following day, the swelling was worse. He then called his physician who could not see him, but prescribed Augmentin. This had no effect over the next 48 hours, and as directed he then presented to the hospital and was admitted. He has been given imipenem and vancomycin. No other injuries. He has had previous arthroscopic knee surgery to the right knee over 20 years ago. Otherwise, no operations. He has no prosthetic devices in place. He knows of no vascular compromise to the right lower extremity. No fever, chills, or sweats. ALLERGIES: NONE KNOWN. HABITS: Quit smoking 30 years ago. No alcohol. No illicit drugs. CURRENT MEDICATIONS: No immunosuppressants. PAST MEDICAL HISTORY: In addition to the above, CAD with prior CABG, colon cancer with partial colectomy, carpal tunnel surgery, GERD, hypertension, previous hiatal hernia repair with some kind of a band, amputation of the right index finger. FAMILY HISTORY: COPD, cancer, hypertension. 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 He is . His is getting close to longterm. Lives locally. REVIEW OF SYSTEMS: 14-point review otherwise negative. PHYSICAL EXAMINATION: GENERAL: This is a middle-aged male, who appears his actual age. No acute distress. VITAL SIGNS: Afebrile since arrival, 74, 16, 138/84, 100% saturation. SKIN: Warm and dry. No generalized rashes. EENT: The conjunctivae are normal. Pupils equal, round, reactive to light. No paranasal sinus erythema, edema or tenderness. Oropharynx, oral mucosa normal. Teeth in good repair. NECK: No meningismus or masses. NODES: He has no femoral nor cervical adenopathy. LUNGS: Clear to auscultation and percussion. Good air entry. CARDIAC: Regular rate and rhythm. No murmur, gallop, or rub. Popliteal, dorsalis pedis, posterior tibial pulses all 2+ and equal. ABDOMEN: No organomegaly. No masses. Nontender. Nondistended. Normal bowel sounds. No bruits. EXTREMITIES: Left leg is . He does have diabetic dermopathy, however, over the [place]. On the right, he has 1+ pitting and nonpitting edema of the entire right foot. He has mild erythema over the distal aspect of the foot sparing the toes. He has a puncture wound as described above, which is closed and with crust. No purulence. No tenderness. There is mild warm
[2020-11-30 18:38] LABS: Glucose Point of Care 193 mg/dl (65-105)
[2020-11-30 23:07] LABS: Glucose Point of Care 290 mg/dl (65-105)
[2020-12-01 05:46] LABS: Basophils Percent Auto 0.5 % (0.2-1.2); Eosinophils Absolute Auto 0.1 K/mm3 (0-0.3); Eosinophils Percent Auto 1.2 % (0-4.4); Hematocrit 40.5 % (42.0-52.0); Hemoglobin 13.8 g/dL (14.0-18.0); Immature Granulocyte Absolute 0.04 K/mm3 (0.00-0.031); Immature Granulocyte Percent A 0.5 % (0-0.5); Lymphocytes Absolute Auto 0.95 K/mm3 (0.9-3.2); Lymphocytes Percent Auto 12.1 % (18.3-44.2); Mean Corpuscular HGB Conc 34.1 g/dl (32-36); Mean Corpuscular Hemoglobin 30.5 pg (26-34); Mean Corpuscular Volume 89.6 fl (80-100); Mean Platelet Volume 9.6 fl (7.4-10.4); Monocytes Absolute Auto 0.8 K/mm3 (0.1-0.6); Monocytes Percent Auto 9.7 % (2.6-8.5); Neutrophils Absolute Auto 5.9 K/mm3 (1.3-6.7); Platelet Count Result 220 k/mm3 (150-375); Red Blood Count 4.52 M/mm3 (4.6-6.20); Red Cell Distribution Width 11.4 % (11.5-14.5); White Blood Count 7.8 K/mm3 (4.5-10.0)
[2020-12-01 05:56] LABS: Anion Gap 5 mmol/L (8-16); Blood Urea Nitrogen 12 mg/dL (9-20); Calcium 8.9 mg/dL (8.4-10.2); Carbon Dioxide 31 mmol/L (22-30); Chloride 92 mmol/L (98-107); Estimated CRCL calculation 133 ml/min; Estimated Glomerular Filt Rate > 60; Glucose 225 mg/dL (65-110); Potassium 4.6 mmol/L (3.4-5.0); Sodium 128 mmol/L (137-145)
[2020-12-01 06:00] VITALS: BP 138/78; PULSE 79; RESP 21; TEMP 36.2; O2SAT 100
[2020-12-01] MEDS: HYDROcodone/acetaminophen (*CRX) 5-325 MG TABLET 1 TAB PO ×2 (06:12→20:44)
--- NOTE | 2020-12-01 06:41 | PM.PNORT ---
Progress Note: A&P Additional Plan Right foot it is looking much better today. Much less swelling. Still little bit of redness in the foot but overall significantly improved from yesterday. MRI scan was done and 5:00 a.m. yesterday afternoon but images are not up on PACS and has not been read by the radiologist yet. Hopefully will be able review these later today. Appreciate Dr. Lau's recommendations on IV treatments. They have discussed with the patient setting up home IV care. We will try look at the images on PACS later today. Subjective Subjective Date/Time Seen: 12/01/20 06:41 Objective Data Vital Signs Vital Signs: Vital Signs - 24 hr 11/30/20 07:02 11/30/20 07:30 11/30/20 08:00 Temperature 36.9 C 36.1 C L Pulse Rate 68 74 Respiratory Rate 17 16 18 Blood Pressure 160/88 H 138/84 Pulse Oximetry 100 100 100 11/30/20 14:00 11/30/20 22:00 Temperature 36.2 C L 36.3 C L Pulse Rate 80 71 Respiratory Rate 18 20 Blood Pressure 146/75 H 160/82 H Pulse Oximetry 100 99 Intake/Output Intake/Output: Intake & Output 11/28/20 11/29/20 11/30/20 12/01/20 23:59 23:59 23:59 23:59 Intake Total 100 2570 Balance 100 2570 Meds/Results Medications: Active Medications Generic Name Dose Route Start Last Admin Trade Name Freq PRN Reason Stop Dose Admin Acetaminophen 650 mg 11/29/20 22:15 11/30/20 06:46 Acetaminophen 325 Mg Tablet PO 650 mg Q4H PRN Administration Mild Pain (1-3) or Fever Hydrocodone Bitart/Acetaminophen 1 tab 11/30/20 13:07 12/01/20 06:12 Hydrocodone/Acetaminophen (*Crx) 5-325 Mg Tablet PO 1 tab Q6HR PRN Administration Pain Rated 4-6 Dextrose 12.5 gm 11/30/20 03:24 Dextrose 50% 25 Gm/50 Ml Syringe IV PUSH PRN PRN Hypoglycemia Protocol Glucagon 1 mg 11/30/20 03:24 Glucagon For Inj 1 Mg Vial IM PRN PRN Hypoglycemia Protocol Glucose 15 gm 11/30/20 03:24 Glucose Oral Gel 15 Gm Of Glucse In 37.5 Gm Tube PO PRN PRN Hypoglycemia Protocol Imipenem/Cilastatin Sodium 500 mg in 100 mls @ 300 mls/hr 11/30/20 06:00 12/01/20 06:06 Primaxin 500 Mg/D5w 100 Ml IVPB 100 mls/hr Q6H RANDA Administration Vancomycin HCl 1,500 mg in 500 mls @ 333.333 mls/hr 11/30/20 11:00 11/30/20 23:37 Vancomycin 1,500 Mg/D5w 500 Ml IVPB 250 mls/hr Q12H RANDA Administration Dextrose 1,000 mls @ 100 mls/hr 11/30/20 03:24 Dextrose 5% 1,000 Ml IVPB PRN PRN Hypoglycemia Protocol Insulin Aspart 2 - 5 units 11/30/20 08:00 11/30/20 18:20 Insulin Aspart (*Bkc) 100 Units/Ml SUB-Q Not Given TIDWM RANDA Protocol Morphine Sulfate 2 mg 11/30/20 13:07 Morphine Sulfate (*Crx) 4 Mg/Ml Inj IV PUSH Q6HR PRN Pain Rated 7-10 Ondansetron HCl 4 mg 11/29/20 22:15 Ondansetron Inj 4 Mg/2 Ml Vial IV PUSH Q4H PRN Nausea Radiology Results: ITS Impressions Foot X-Ray 11/29/20 19:17 IMPRESSION: 1. No acute fracture or radiopaque foreign body. 2. Erosion at the head of the head of the first proximal phalanx and likely at the head of the fourth proximal phalanx which are suspicious for gout. Venous Doppler Study 11/30/20 09:57 IMPRESSION: 1: No lower extremity deep venous thrombosis. Labs Labs: Laboratory Results - last 24 hr 11/30/20 11/30/20 11/30/20 07:50 07:50 07:50 WBC 5.8 RBC 4.07 L Hgb 12.4 L Hct 36.1 L MCV 88.7 MCH 30.5 MCHC 34.3 RDW 11.5 Plt Count 191 MPV 9.7 Immature Gran % (Auto) 0.7 H Neut % (Auto) 74.3 H Lymph % (Auto) 14.1 L [place] % (Auto) 8.7 H Eos % (Auto) 1.5 Baso % (Auto) 0.7 Lymph # (Auto) 0.82 L [place] # (Auto) 0.5 Eos # (Auto) 0.1 Baso # (Auto) 0.0 Abs Immat Gran (auto) 0.04 H Absolute Neuts (auto) 4.3 Absolute Nucleated RBC 0.0 Nucleated RBC % 0.0 Sodium 131 L Potassium 4.1 Chloride 99 Carbon Dioxide 29 Anion
[2020-12-01 07:55] LABS: Glucose Point of Care 201 mg/dl (65-105)
[2020-12-01] MEDS: INSULIN ASPART (*BKC) 100 UNITS/ML SUB-Q ×3 (08:22→17:44)
[2020-12-01] MEDS: ASPIRIN 81 MG ENTERIC TABLET PO (09:40)
[2020-12-01] MEDS: lisinopriL 5 MG TABLET PO (09:40)
[2020-12-01 11:25] LABS: Glucose Point of Care 230 mg/dl (65-105)
--- NOTE | 2020-12-01 12:08 | WPDINFPN2 ---
Progress Note: A&P Assessment and Plan (1) Cellulitis of foot, right: Code(s): L03.115 - Cellulitis of right lower limb Status: Acute Assessment and Plan: 1. Puncture wound with cellulitis, no bacteremia. Exam stable. MRI no complications noted other than edema of joints which is probably sympathetic rather than true septic arthritis. Due to high risk for development of osteomyelitis, I will treat for 4 weeks. 2. DM, poor control. REC Imipenem and Vanc through 12/27. Ok discharge planning assuming no immediate surgical intervention. Glycemic control mandatory for prevention of complication. Call if Qs Subjective Date/time seen: 12/01/20 12:08 Interval history: no new complaints. Exam Narrative: afebrile Const: General: no acute distress Eyes: General: appearance normal, both eyes and all related structures Resp: Effort & Inspection: normal respiratory effort Auscultation: clear to auscultation bilaterally Cardio: Rate: regular rate Rhythm: regular rhythm Heart sounds: no murmurs GI: Inspection: non-distended GI Palp: Yes Soft to palpation and No Tenderness to palpation present (GI) Skin: General skin exam: normal color and no rashes or lesions noted Other: R foot erythema same, no drainage from dorsal nor plantar puncture wounds Objective Data Vital Signs Vital Signs: Vital Signs - 24 hr 11/30/20 14:00 11/30/20 22:00 12/01/20 06:00 Temperature 36.2 C L 36.3 C L 36.2 C L Pulse Rate 80 71 79 Respiratory Rate 18 20 21 H Blood Pressure 146/75 H 160/82 H 138/78 Pulse Oximetry 100 99 100 Intake/Output Intake/Output: Intake & Output 11/28/20 11/29/20 11/30/20 12/01/20 23:59 23:59 23:59 23:59 Intake Total 100 2570 1490 Balance 100 2570 1490 Meds/Results Medications: Active Medications Generic Name Dose Route Start Last Admin Trade Name Freq PRN Reason Stop Dose Admin Acetaminophen 650 mg 12/01/20 08:46 Acetaminophen 325 Mg Tablet PO Q6H PRN Mild Pain (1-3) or Fever Hydrocodone Bitart/Acetaminophen 1 tab 11/30/20 13:07 12/01/20 06:12 Hydrocodone/Acetaminophen (*Crx) 5-325 Mg Tablet PO 1 tab Q6HR PRN Administration Pain Rated 4-6 Aspirin 81 mg 12/01/20 09:00 12/01/20 09:40 Aspirin 81 Mg Enteric Tablet PO 81 mg QAM RANDA Administration Dextrose 12.5 gm 12/01/20 08:32 Dextrose 50% 25 Gm/50 Ml Syringe IV PUSH PRN PRN Hypoglycemia Protocol Glucagon 1 mg 12/01/20 08:32 Glucagon For Inj 1 Mg Vial IM PRN PRN Hypoglycemia Protocol Glucose 15 gm 12/01/20 08:32 Glucose Oral Gel 15 Gm Of Glucse In 37.5 Gm Tube PO PRN PRN Hypoglycemia Protocol Imipenem/Cilastatin Sodium 500 mg in 100 mls @ 300 mls/hr 11/30/20 06:00 12/01/20 11:26 Primaxin 500 Mg/D5w 100 Ml IVPB 100 mls/hr Q6H RANDA Administration Vancomycin HCl 1,500 mg in 500 mls @ 333.333 mls/hr 11/30/20 11:00 12/01/20 01:30 Vancomycin 1,500 Mg/D5w 500 Ml IVPB Infused Q12H RANDA Infusion Dextrose 1,000 mls @ 100 mls/hr 11/30/20 03:24 Dextrose 5% 1,000 Ml IVPB PRN PRN Hypoglycemia Protocol Dextrose 1,000 mls @ 100 mls/hr 12/01/20 08:32 Dextrose 5% 1,000 Ml IVPB PRN PRN Hypoglycemia Protocol Insulin Aspart 2 - 5 units 12/01/20 12:00 12/01/20 11:27 Insulin Aspart (*Bkc) 100 Units/Ml SUB-Q 2 units TIDWM RANDA Administration Protocol Lisinopril 5 mg 12/01/20 09:00 12/01/20 09:40 Lisinopril 5 Mg Tablet PO 5 mg QAM RANDA Administration Morphine Sulfate 2 mg 11/30/20 13:07 Morphine Sulfate (*Crx) 4 Mg/Ml Inj IV PUSH Q6HR PRN Pain Rated 7-10 Ondansetron HCl 4 mg 11/29/20 22:15 Ondansetron Inj 4 Mg/2 Ml Vial IV PUSH Q4H PRN Nausea Radiology Results: ITS Impressions Foot X-Ray 11/29/20 19:17 IMPRESSION: 1. No acute fracture or radiopaque foreign body. 2. Erosion at the head of the head of the first proxima
[2020-12-01 13:10] LABS: Vancomycin Trough 6.9 ug/mL (10.0-20.0)
[2020-12-01] MEDS: LIDOCAINE HCL 1% PF INJ 5 ML VIAL INFILTRATE (13:55)
[2020-12-01 14:00] VITALS: BP 141/67; PULSE 81; RESP 16; TEMP 36.3; O2SAT 99
--- NOTE | 2020-12-01 14:14 | PM.IMPN ---
Progress Note: A&P Assessment and Plan (1) Puncture wound of foot, right: Qualifiers: Encounter type: initial encounter Qualified Code(s): S91.331A - Puncture wound without foreign body, right foot, initial encounter Code(s): S91.331A - Puncture wound without foreign body, right foot, initial encounter Status: Acute Assessment and Plan: Tetanus prophylaxis Tdap received on 03/24/2020. No other tetanus dosing present in the past, check record in [facility] web site. Received another dose of tetanus booster along with tetanus immunoglobulin. Continue antibiotics with imipenem and vancomycin. Infectious Disease service is following. Pain control with [place] and morphine. Deescalate opiates if pain is adequately controlled. (2) Cellulitis of foot, right: Code(s): L03.115 - Cellulitis of right lower limb Status: Acute Assessment and Plan: Infectious disease service recommendation appreciated. Continue imipenem and vancomycin until 12/27. Orthopedic service recommendations appreciated. MRI of the foot was performed which does not show any evidence of osteomyelitis or abscess formation. Foci of gas in the plantar soft tissue between the 3rd and 4th digit likely introduced by the puncture wound. Small effusion of 1st to 3rd metatarsophalangeal joints. Erosion of the medial aspect of the head of the 1st proximal phalanx which may be secondary to gout. (3) Diabetes: Code(s): E11.9 - Type 2 diabetes mellitus without complications Status: Acute Assessment and Plan: Continue insulin sliding scale. Hemoglobin A1c is 13.2. He used to be on medications for his medical comorbidities but stop taking those about a month ago because of some insurance issues. He is currently taking just 1 medication but he could not recall the name. Considering his hemoglobin A1c I think he would likely need to be started on diabetic medications. I will consult rn diabetes educator for their inputs. (4) HTN (hypertension): Code(s): I10 - Essential (primary) hypertension Status: Acute Assessment and Plan: His blood pressure has been noticed to be elevated. I will start him on lisinopril. He was on medications for his medical comorbidities but has not been taking it for the last 1 month or so because of some insurance issues. Continue to monitor. (5) CAD (coronary artery disease): Code(s): I25.10 - Atherosclerotic heart disease of [place] coronary artery without angina pectoris Status: Acute Assessment and Plan: Continue aspirin. (6) Cancer of transverse colon: Code(s): C18.4 - Malignant neoplasm of transverse colon Status: Acute Assessment and Plan: Continue to monitor. Additional Plan DVT prophylaxis Lovenox Full code Subjective Date/time seen: 12/01/20 14:14 He is feeling much better today. He thinks that his swelling in the right foot has gone down significantly. He denied have any significant pain as well. MRI of the foot was done which did not show any evidence of osteomyelitis. Foci of [place] in the plantar soft tissue between the 3rd and 4th digit was seen likely as a result of punctured wound. He denied have any significant symptoms of cough shortness of breath nausea vomiting abdominal pain fever and chills. Review of Systems Review of Systems: All systems reviewed & are unremarkable except as noted in HPI and below Exam Narrative: GENERAL: Well-appearing, well-nourished, and in no acute distress. NECK: Supple. Nontender CHEST: Clear to auscultation. No respiratory distress. HEART: Regular rate and rhythm. No murmur heard. Normal peripheral pulses. ABDOMEN: Soft, nontender, nondistended EXTREMITIES: Normal range of motion. Edema and swollen right lower leg with warmth up to mid leg. Right foot is swollen and tense tender and warm to touch. There is erythema of the dorsum of the right foot e
[2020-12-01] MEDS: CENTRAL LINE FLUSH 10 ML IV PUSH (14:51)
[2020-12-01 17:37] LABS: Glucose Point of Care 391 mg/dl (65-105)
[2020-12-01 21:18] VITALS: BP 146/76; PULSE 80; RESP 17; TEMP 36.9; O2SAT 99
[2020-12-01 22:29] LABS: Glucose Point of Care 225 mg/dl (65-105)
[2020-12-02] MEDS: CENTRAL LINE FLUSH 10 ML IV PUSH ×2 (00:02→05:09)
[2020-12-02] MEDS: HYDROcodone/acetaminophen (*CRX) 5-325 MG TABLET 1 TAB PO ×2 (03:09→10:03)
[2020-12-02 05:33] LABS: Basophils Percent Auto 0.5 % (0.2-1.2); Eosinophils Absolute Auto 0.2 K/mm3 (0-0.3); Eosinophils Percent Auto 1.9 % (0-4.4); Hematocrit 37.3 % (42.0-52.0); Hemoglobin 12.8 g/dL (14.0-18.0); Immature Granulocyte Absolute 0.06 K/mm3 (0.00-0.031); Immature Granulocyte Percent A 0.8 % (0-0.5); Lymphocytes Absolute Auto 1.18 K/mm3 (0.9-3.2); Lymphocytes Percent Auto 15.2 % (18.3-44.2); Mean Corpuscular HGB Conc 34.3 g/dl (32-36); Mean Corpuscular Hemoglobin 30.5 pg (26-34); Mean Platelet Volume 9.5 fl (7.4-10.4); Monocytes Absolute Auto 0.8 K/mm3 (0.1-0.6); Monocytes Percent Auto 10.4 % (2.6-8.5); Neutrophils Absolute Auto 5.5 K/mm3 (1.3-6.7); Neutrophils Percent Auto 71.2 % (45.5-73.1); Platelet Count Result 209 k/mm3 (150-375); Red Blood Count 4.19 M/mm3 (4.6-6.20); Red Cell Distribution Width 11.5 % (11.5-14.5); White Blood Count 7.8 K/mm3 (4.5-10.0)
[2020-12-02 06:15] VITALS: BP 130/68; PULSE 79; RESP 18; TEMP 36.6; O2SAT 99
[2020-12-02 06:18] LABS: Anion Gap 4 mmol/L (8-16); Blood Urea Nitrogen 11 mg/dL (9-20); CRP 4.4 mg/dL (<1.0); Calcium 8.7 mg/dL (8.4-10.2); Carbon Dioxide 30 mmol/L (22-30); Chloride 98 mmol/L (98-107); Cholesterol 142 mg/dL (0-200); Estimated CRCL calculation 162 ml/min; Estimated Glomerular Filt Rate > 60; Glucose 202 mg/dL (65-110); HDL Direct 35 mg/dL; Potassium 4.2 mmol/L (3.4-5.0); Sodium 132 mmol/L (137-145); Triglycerides 81 mg/dL (<150)
[2020-12-02 06:26] LABS: LDL Cholesterol Direct 82 mg/dL
[2020-12-02 07:15] LABS: Glucose Point of Care 187 mg/dl (65-105)
[2020-12-02 07:28] LABS: Platelet Estimate Adequate (Adequate)
[2020-12-02 07:29] LABS: Erythrocyte Sedimentation Rate 55 mm/hr (0-20)
[2020-12-02 08:31] VITALS: RESP 18; O2SAT 99
[2020-12-02] MEDS: ASPIRIN 81 MG ENTERIC TABLET PO (08:31)
[2020-12-02] MEDS: lisinopriL 5 MG TABLET PO (08:31)
--- NOTE | 2020-12-02 09:48 | PM.DS ---
DS: Admitting Diagnosis Admitting Diagnosis Puncture wound of right foot with associated cellulitis DS: Discharge Diagnosis Discharge Diagnosis (1) Puncture wound of foot, right: Qualifiers: Encounter type: initial encounter Qualified Code(s): S91.331A - Puncture wound without foreign body, right foot, initial encounter Code(s): S91.331A - Puncture wound without foreign body, right foot, initial encounter Status: Acute (2) Cellulitis of foot, right: Code(s): L03.115 - Cellulitis of right lower limb Status: Acute DS: Summary Hospital Course Hospital Course: This is a 65-year-old gentleman with past medical history poorly controlled diabetes mellitus, coronary disease, hypertension, MARGARETH, presented to the emergency department on 11/30 with right foot puncture wound. He stepped on a nail. Developed redness and swelling. He was seen by infectious disease. He was initiated on vancomycin and imipenem. He received tetanus booster along with immunoglobulin. He was seen by Orthopedic surgery. MRI was done. Showed no osteomyelitis. Areas of air foci in the soft tissue related to his puncture wound. No surgical intervention was needed. Infectious Disease recommended 4 week course of vancomycin and imipenem. With his swelling of the foot resolved. He had mild residual erythema in his right foot at the time of discharge but had significantly improved. He was ambulating without issues. He was noted during his hospitalization to have a hemoglobin A1c of 13. He was seen by staff development educator. He has discontinued his diabetes medications in the past on his own and he has had chronic poorly controlled diabetes. It was emphasized to him the need for adequate control of his diabetes to allow for healing of his wound and prevent future complications. He refused to be initiated on any diabetes meds. Multiple meetings and discussions but he is quite insistent and voiced he understands risks. Per Infectious Disease: continue imipenem and vancomycin until 12/27. Given elevated blood pressure during his stay, he was initiated on lisinopril. Time Spent with Patient Time attestation: Total time spent providing and/or coordinating discharge services: 35 min Exam Narrative: Gen: Alert, NAD Abd: Soft, NT, ND Heart: RRR Lungs: CTAB Ext: No lower extremity edema, right foot erythema, significantly improved DS: Data Data Completed and Pending Labs on day of discharge: Labs from last 24 hours 12/02/20 12/02/20 12/02/20 07:13 05:08 05:08 WBC 7.8 RBC 4.19 L Hgb 12.8 L Hct 37.3 L MCV 89.0 MCH 30.5 MCHC 34.3 RDW 11.5 Plt Count 209 MPV 9.5 Immature Gran % (Auto) 0.8 H Neut % (Auto) 71.2 Lymph % (Auto) 15.2 L [place] % (Auto) 10.4 H Eos % (Auto) 1.9 Baso % (Auto) 0.5 Lymph # (Auto) 1.18 [place] # (Auto) 0.8 H Eos # (Auto) 0.2 Baso # (Auto) 0.0 Abs Immat Gran (auto) 0.06 H Absolute Neuts (auto) 5.5 Absolute Nucleated RBC 0.0 Nucleated RBC % 0.0 Platelet Estimate Adequate ESR 55 H Sodium 132 L Potassium 4.2 Chloride 98 Carbon Dioxide 30 Anion Gap 4 L BUN 11 Creatinine 0.40 L Estim Creat Clear Calc 162 Estimated GFR > 60 Glucose 202 H POC Capillary Glucose 187 H Hemoglobin A1c Calcium 8.7 C-Reactive Protein 4.4 H Triglycerides 81 Cholesterol 142 LDL Cholesterol Direct 82 HDL Direct 35 Vancomycin Trough 12/02/20 12/01/20 12/01/20 05:08 20:44 17:34 WBC RBC Hgb Hct MCV MCH MCHC RDW Plt Count MPV Immature Gran % (Auto) Neut % (Auto) Lymph % (Auto) [place] % (Auto) Eos % (Auto) Baso % (Auto) Lymph # (Auto) [place] # (Auto) Eos # (Auto) Baso # (Auto) Abs Immat Gran (auto) Absolute Neuts (auto) Absolute Nucleated RBC Nucleated RBC % Platelet Estimate ESR Sodium Potassium
[2020-12-02 11:50] LABS: Glucose Point of Care 271 mg/dl (65-105)
[2020-12-02] MEDS: INSULIN ASPART (*BKC) 100 UNITS/ML SUB-Q (11:53)
--- NOTE | 2020-12-02 12:05 | PM.PNORT ---
Subjective Subjective Date/Time Seen: 12/02/20 12:05 Objective Data Vital Signs Vital Signs: Vital Signs - 24 hr 12/01/20 14:00 12/01/20 21:18 12/02/20 06:15 Temperature 36.3 C L 36.9 C 36.6 C Pulse Rate 81 80 79 Respiratory Rate 16 17 18 Blood Pressure 141/67 H 146/76 H 130/68 Pulse Oximetry 99 99 99 12/02/20 08:31 Temperature Pulse Rate Respiratory Rate 18 Blood Pressure Pulse Oximetry 99 Intake/Output Intake/Output: Intake & Output 11/29/20 11/30/20 12/01/20 12/02/20 23:59 23:59 23:59 23:59 Intake Total 100 2570 2670 1570 Balance 100 2570 2670 1570 Meds/Results Medications: Active Medications Generic Name Dose Route Start Last Admin Trade Name Freq PRN Reason Stop Dose Admin Acetaminophen 650 mg 12/01/20 08:46 Acetaminophen 325 Mg Tablet PO Q6H PRN Mild Pain (1-3) or Fever Hydrocodone Bitart/Acetaminophen 1 tab 11/30/20 13:07 12/02/20 10:03 Hydrocodone/Acetaminophen (*Crx) 5-325 Mg Tablet PO 1 tab Q6HR PRN Administration Pain Rated 4-6 Aspirin 81 mg 12/01/20 09:00 12/02/20 08:31 Aspirin 81 Mg Enteric Tablet PO 81 mg QAM RANDA Administration Dextrose 12.5 gm 12/01/20 08:32 Dextrose 50% 25 Gm/50 Ml Syringe IV PUSH PRN PRN Hypoglycemia Protocol Glucagon 1 mg 12/01/20 08:32 Glucagon For Inj 1 Mg Vial IM PRN PRN Hypoglycemia Protocol Glucose 15 gm 12/01/20 08:32 Glucose Oral Gel 15 Gm Of Glucse In 37.5 Gm Tube PO PRN PRN Hypoglycemia Protocol Imipenem/Cilastatin Sodium 500 mg in 100 mls @ 300 mls/hr 11/30/20 06:00 12/02/20 11:35 Primaxin 500 Mg/D5w 100 Ml IVPB 12/27/20 23:59 Infused Q6H RANDA Infusion Dextrose 1,000 mls @ 100 mls/hr 12/01/20 08:32 Dextrose 5% 1,000 Ml IVPB PRN PRN Hypoglycemia Protocol Vancomycin HCl 2,000 mg in 500 mls @ 333.333 mls/hr 12/02/20 09:00 12/02/20 10:04 Vancomycin 2,000 Mg/D5w 500 Ml IVPB Infused Q12H RANDA Infusion Insulin Aspart 2 - 5 units 12/01/20 12:00 12/02/20 11:53 Insulin Aspart (*Bkc) 100 Units/Ml SUB-Q 3 units TIDWM RANDA Administration Protocol Lisinopril 5 mg 12/01/20 09:00 12/02/20 08:31 Lisinopril 5 Mg Tablet PO 5 mg QAM RANDA Administration Morphine Sulfate 2 mg 11/30/20 13:07 Morphine Sulfate (*Crx) 4 Mg/Ml Inj IV PUSH Q6HR PRN Pain Rated 7-10 Ondansetron HCl 4 mg 11/29/20 22:15 Ondansetron Inj 4 Mg/2 Ml Vial IV PUSH Q4H PRN Nausea Sodium Chloride 10 ml 12/01/20 14:00 12/02/20 05:09 Central Line Flush IV PUSH 10 ml Q8HR RANDA Administration Sodium Chloride 10 ml 12/01/20 14:46 Central Line Flush IV PUSH PRN PRN with TPN bag changes Sodium Chloride 20 ml 12/01/20 14:46 Central Line Flush IV PUSH PRN PRN after blood draws Radiology Results: ITS Impressions Foot X-Ray 11/29/20 19:17 IMPRESSION: 1. No acute fracture or radiopaque foreign body. 2. Erosion at the head of the head of the first proximal phalanx and likely at the head of the fourth proximal phalanx which are suspicious for gout. Venous Doppler Study 11/30/20 09:57 IMPRESSION: 1: No lower extremity deep venous thrombosis. Foot MRI 12/01/20 08:33 IMPRESSION: 1. No specific evidence of osteomyelitis. 2. Foci of gas in the plantar soft tissues between the third and fourth digits, likely introduced by the puncture wound. 3. Polyarticular osteoarthritis. 4. Erosion at medial aspect of head of first proximal phalanx, which may be secondary to gout. 5. Small effusions of first-third metatarsophalangeal joints. Chest X-Ray 12/01/20 14:30 Impression: 1: PICC line tip in the SVC. Labs Labs: Laboratory Results - last 24 hr 12/01/20 12/01/20 12/01/20 09:51 17:34 20:44 WBC RBC Hgb Hct MCV MCH MCHC RDW Plt Count MPV Immature Gran % (Auto) Neut % (Auto)
[2020-12-02 12:15] VITALS: BMI 23.3
== END 2020-12-02 13:10 | disposition home health service (06) | DRG 605 ==
LOC: ANHED 22:29 → ANH2MED 11-30 12:54 → ANH3MEDSUR 12-10 08:32
PROVIDERS: Emergency Medicine; Internal Medicine Critical Care Medicine; Admitting Provider Internal Medicine; Emergency Provider Emergency Medicine; PCP Family Medicine; Visit Provider Internal Medicine Nephrology
DX: S91.331A Puncture wound without foreign body, right foot, initial encounter (principal); L03.115 Cellulitis of right lower limb; C18.4 Malignant neoplasm of transverse colon; W45.0XXA Nail entering through skin, initial encounter; W22.8XXA Striking against or struck by other objects, initial encounter; Z23 Encounter for immunization; E11.65 Type 2 diabetes mellitus with hyperglycemia; I10 Essential (primary) hypertension; I25.10 Atherosclerotic heart disease of native coronary artery without angina pectoris; K21.9 Gastro-esophageal reflux disease without esophagitis; Z87.891 Personal history of nicotine dependence; Z90.49 Acquired absence of other specified parts of digestive tract; Z95.1 Presence of aortocoronary bypass graft
CPT/HCPCS: 36415; 36569; 73630; 73720; 80048; 80053; 80061; 80202; 82948; 83036; 83605; 85025; 85652; 86140; 87040; 90714; 93005; 93971; 99285; A9270; A9577; C1751; J0743; J1670; J1815; J3370

== ENCOUNTER 2020-12-04 09:51 | Outpatient (NON) | payer OTHER, SELFPAY ==
[2020-12-04 11:09] LABS: Vancomycin Trough 12.8 ug/mL (10.0-20.0)
== END 2020-12-04 09:52 | disposition home or self-care (01) ==
PROVIDERS: PCP Family Medicine; Visit Provider Internal Medicine Infectious Disease
DX: L03.115 Cellulitis of right lower limb (principal); S91.331A Puncture wound without foreign body, right foot, initial encounter; Z45.2 Encounter for adjustment and management of vascular access device; Z79.2 Long term (current) use of antibiotics; X58.XXXA Exposure to other specified factors, initial encounter
CPT/HCPCS: 80202

== ENCOUNTER 2020-12-04 14:15 | Inpatient (IN) | payer OTHER, MEDICARE, SELFPAY ==
--- NOTE | ~2020-12-04 | XR_ITS ---
EXAMINATION: XR foot RT min 3V DATE: 12/04/2020 16:31 INDICATION: Right foot infection TECHNIQUE: Dorsoplantar, two oblique and lateral views of the right foot were obtained. COMPARISON: Right foot radiographs dated 11/29/2020 and MRI dated 11/30/2020 FINDINGS: Bone alignment is normal. No acute fracture. Again seen is a lucent region at the head of the fourth proximal phalanx. The appearance on the prior MRI suggests this represents an old fracture. Chronic juxta articular erosion with thin sclerotic margins and overhanging edges at the medial heads of the first and second proximal phalanges with appearance most suggestive of gout. No other erosions or Unc hanged mild polyarticular osteoarthritis at the first metatarsophalangeal and several tarsal metatars al and interphalangeal joints. Moderate-sized Achilles and plantar calcaneal spurs. Soft tissue swell ing at the third and fourth toes with soft tissue gas at the webspace between the bases of the third and fourth toes. IMPRESSION: 1. Persistent soft tissue gas in the webspace between the third and fourth toes likely related to a r eported prior puncture injury and potentially ongoing cellulitis. No findings to suggest osteomyeliti s. 2. Chronic erosions at the heads of the first and second proximal phalanges which are suspicious for gout. Reviewed, dictated and finalized at location A. IMPRESSION: 1. Persistent soft tissue gas in the webspace between the third and fourth toes likely related to a reported prior puncture injury and potentially ongoing billie lulitis. No findings to suggest osteomyelitis. 2. Chronic erosions at the heads of the first and second proximal phalanges whi ch are suspicious for gout.
[2020-12-04 14:54] VITALS: BP 148/83; PULSE 92; RESP 16; TEMP 36.5; O2SAT 100
--- NOTE | 2020-12-04 16:23 | ED.GENADULT ---
HPI - General Adult General Chief complaint: Unspecified Stated complaint: picc lines difficulties Time Seen by Provider: 12/04/20 16:06 History of Present Illness HPI narrative: 65 yo male w/ h/o poorly controlled DM presents to the ED c/o picc line issues. He was recent hospitalized after stepping on a nail. He was seen by ortho and infectious disease. He had an MRI showing no abscess or osteomyelitis. He was discharged with a picc line in place on vanc and imipenem. Over the past day or so he has begun having issues with the picc line. They were able to get it to flush, but it would not draw. In addition to this problem he reports that his foot has begun to swell. He has had purulent drainage from the foot. The erythema has spread. No fever. Related Data Home Medications Medication Instructions Recorded Confirmed aspirin 81 mg tablet,delayed 81 mg PO DAILY 09/24/19 11/30/20 release Allergies Allergy/AdvReac Type Severity Reaction Status Date / Time No Known Allergies Allergy Verified 11/30/20 09:03 Review of Systems Review of Systems: All systems reviewed & are unremarkable except as noted in HPI and below Constitutional: Constitutional: Denies fever(s) Cardiovascular: Cardiovascular: Denies chest pain Respiratory: Respiratory: Denies dyspnea PMFSH Past Medical History Medical History CAD (coronary artery disease) Status post CABG Cancer of transverse colon Status post right hemicolectomy Carpal tunnel syndrome Diabetes GERD (gastroesophageal reflux disease) HTN (hypertension) Surgical History Surgical History Finger amputee H/O hernia repair 2019 H/O right knee surgery Hiatal hernia with GERD 1989 History of hand surgery History of right hemicolectomy with ileocolic anastomsis in 2019 Hx of CABG Family History Family History Sibling Family history of malignant neoplasm Father Family history of chronic obstructive pulmonary disease Hypertension Heart disease Mother Hypertension Cancer Sibling Cancer Sibling Cancer Sibling Cancer Social History Social History Smoking status: Former smoker Second hand tobacco smoke exposure: No Additional smoking assessment comments: quit smoking over 30 years ago Alcohol intake: never Substance use: never Substance use type: does not use Gender identity (if verbalized by the patient): Male Spiritual care concerns: No Exam Const: General: healthy appearing, no acute distress and alert Orientation/consciousness: patient oriented x3 HENMT: Head: normal to inspection Neck: Neck: normal visual inspection Resp: Effort & Inspection: normal respiratory effort Auscultation: clear to auscultation bilaterally, no rales, no rhonchi and no wheezes Cardio: Jugular venous distension: no JVD Rate: regular rate Rhythm: regular rhythm Heart sounds: no murmurs GI: Inspection: non-distended GI Palp: Yes Soft to palpation and No Tenderness to palpation present (GI) Skin: Other: erythema to top and bottom of foot around healing puncture Neuro: General: patient oriented x3 and moves all extremities Speech: normal speech Extrem: General: no edema Other: swelling and tenderness to the dorsum of the right foot with areas of fluctuance. Psych: Appearance: well kempt Affect: normal affect Course Vital Signs Vital signs: Vital Signs Temperature 36.5 C 12/04/20 14:54 Pulse Rate 92 12/04/20 14:54 Respiratory Rate 16 12/04/20 14:54 Blood Pressure 148/83 H 12/04/20 14:54 Pulse Oximetry 100 12/04/20 14:54 Temperature 36.5 C 12/04/20 14:54 Pulse Rate 91 12/04/20 17:00 Respiratory Rate 17 12/04/20 17:00 Blood Pressure 140/80 12/04/20 17:00 Pulse Oximetry 100
[2020-12-04 17:00] VITALS: BP 140/80; PULSE 91; RESP 17; O2SAT 100
[2020-12-04 17:09] LABS: Basophils Absolute Auto 0.1 K/mm3 (0.0-0.1); Basophils Percent Auto 0.6 % (0.2-1.2); Eosinophils Absolute Auto 0.3 K/mm3 (0-0.3); Eosinophils Percent Auto 3.9 % (0-4.4); Hematocrit 40.2 % (42.0-52.0); Hemoglobin 13.6 g/dL (14.0-18.0); Immature Granulocyte Absolute 0.05 K/mm3 (0.00-0.031); Immature Granulocyte Percent A 0.6 % (0-0.5); Lymphocytes Absolute Auto 1.28 K/mm3 (0.9-3.2); Lymphocytes Percent Auto 15.7 % (18.3-44.2); Mean Corpuscular HGB Conc 33.8 g/dl (32-36); Mean Corpuscular Hemoglobin 30.8 pg (26-34); Mean Platelet Volume 9.2 fl (7.4-10.4); Monocytes Absolute Auto 0.5 K/mm3 (0.1-0.6); Monocytes Percent Auto 6.6 % (2.6-8.5); Neutrophils Absolute Auto 5.9 K/mm3 (1.3-6.7); Neutrophils Percent Auto 72.6 % (45.5-73.1); Platelet Count Result 270 k/mm3 (150-375); Red Blood Count 4.42 M/mm3 (4.6-6.20); Red Cell Distribution Width 11.5 % (11.5-14.5); White Blood Count 8.2 K/mm3 (4.5-10.0)
[2020-12-04 17:22] LABS: INR 0.9; Prothrombin Time 11.6 Seconds (11.1-14.7)
[2020-12-04 17:24] LABS: Alanine Aminotransferase 23 U/L (4-50); Albumin Level 3.9 g/dL (3.5-5.1); Alkaline Phosphatase 100 U/L (38-126); Anion Gap 7 mmol/L (8-16); Aspartate Amino Transferase 26 U/L (17-59); Bilirubin,Total 0.7 mg/dL (0.2-1.3); Blood Urea Nitrogen 20 mg/dL (9-20); CRP 3.9 mg/dL (<1.0); Calcium 9.5 mg/dL (8.4-10.2); Carbon Dioxide 28 mmol/L (22-30); Chloride 99 mmol/L (98-107); Estimated CRCL calculation 133 ml/min; Estimated Glomerular Filt Rate > 60; Glucose 294 mg/dL (65-110); Potassium 4.3 mmol/L (3.4-5.0); Sodium 134 mmol/L (137-145)
[2020-12-04 18:06] LABS: Erythrocyte Sedimentation Rate 51 mm/hr (0-20)
--- NOTE | 2020-12-04 19:45 | ADMGEN ---
This patient, Ramirez Orantes Jr., was admitted to Medical Room 240-01 at . Patient/family oriented to hospital policies and general routines including ID bracelet, bed and alarms, visiting hours, pain management, procedures, bathroom and other care routines, personal items, smoking policy, room service/diet, and visiting hours. Information on how to activate the Rapid Response Team has been discussed. Patient/Family are encouraged to report perceived risks to care and to ask questions if they do not understand what they are told or what they should do.
[2020-12-04 20:10] VITALS: BMI 22.7
[2020-12-04] MEDS: SODIUM CHLORIDE 0.9% IV 1,000 ML 100 ML IV CONT (20:40)
--- NOTE | 2020-12-04 20:40 | PM.IMHP ---
H&P: HPI History of Present Illness Date/Time: 12/04/20 20:40 Chief Complaint: RIGHT FOOT SWELLING Narrative: THIS IS A 65-YEAR-OLD MALE WITH PAST MEDICAL HISTORY SIGNIFICANT FOR CORONARY ARTERY DISEASE, CARPAL TUNNEL SYNDROME, DIABETES, GERD, HYPERTENSION, CANCER OF TRANSVERSE COLON. PATIENT HAD BEEN DISCHARGED HOME AFTER HE WAS ADMITTED DUE TO ACCIDENTALLY STEPPING ON A NAIL WITH PUNCTURE WOUND THROUGH HIS RIGHT FOOT PATIENT WAS DISCHARGED HOME WITH PICC LINE IN PLACE ON VANCOMYCIN AND IMIPENEM TIMES A FOR WEEKS HE HAS BEEN HIS HOUSE FOR THE LAST 2 DAYS AND HE WAS SUPPOSED TO COME IN FOR A CHECKUP AND IT WAS NOTED SWELLING ON THE PLANTAR PER OF THE FOOT WITH BRUISING IN OF PURULENT MATERIAL AND REDNESS ON THE DORSUM OF THE FOOT. PATIENT DENIES ANY CHILLS ANY RIGORS ANY FEVERS HE HAS GOOD APPETITE, NO NAUSEA, NO VOMITING, NO DIARRHEA, NO ABDOMINAL PAIN. PATIENT IS BEING ADMITTED FOR I AND D BY ORTHOPEDIC SURGERY. Review of Systems Review of Systems: RIGHT FOOT SWELLING AND DISCHARGE AT PUNCTURE WOUND SITE. Constitutional: Constitutional: Denies chills, Denies fatigue, Denies fever(s) and Denies malaise Eyes: Eyes: Denies change in vision ENT: Denies dysphagia, Denies nasal congestion, Denies nasal discharge, Denies nasal obstruction and Denies odynophagia Cardiovascular: Cardiovascular: Denies irregular heart rhythm, Denies radiating jaw, neck or arm pain, Denies palpitations, Denies dyspnea, Denies dyspnea on exertion and Denies orthopnea Respiratory: Respiratory: Denies cough and Denies dyspnea Gastrointestinal: Gastrointestinal: Denies abdominal pain, Denies dyspepsia, Denies heartburn, Denies nausea and Denies vomiting Genitourinary: Genitourinary: Reports no additional male genitourinary complaints Musculoskeletal: Musculoskeletal: Reports other (RIGHT FOOT SWELLING AND PURULENT DISCHARGE A PUNCTURE WOUND SITE) Comments: DISCOLORATION OF THE RIGHT FOOT AT PUNCTURE WOUND SITE WITH OOZING OF PURULENT MATERIAL Neurologic: Reports system reviewed and no additional complaints, except as documented Psychiatric: Psychiatric: Reports no additional psychiatric complaints Endocrine: Endocrine: Reports no additional endocrine complaints Hematologic/Lymphatic: Hematologic/Lymphatic: Reports no additional hematologic/lymphatic complaints Allergic/Immunologic: Allergic/Immunologic: Reports no additional allergic/immunologic complaints PMFSH Past Medical History Medical History (Updated 12/04/20 @ 21:25 by Chase Leon MD) CAD (coronary artery disease) Status post CABG Cancer of transverse colon Status post right hemicolectomy Carpal tunnel syndrome Diabetes GERD (gastroesophageal reflux disease) HTN (hypertension) Surgical History Surgical History Finger amputee H/O hernia repair 2018 H/O right knee surgery Hiatal hernia with GERD 1990 History of hand surgery History of right hemicolectomy with ileocolic anastomsis in 2019 Hx of CABG Family History Family History Sibling Family history of malignant neoplasm Father Family history of chronic obstructive pulmonary disease Hypertension Heart disease Mother Hypertension Cancer Sibling Cancer Sibling Cancer Sibling Cancer Social History Social History Smoking status: Former smoker Tobacco type: cigarettes Second hand tobacco smoke exposure: No Additional smoking assessment comments: quit smoking over 30 years ago Alcohol intake: former Substance use: never Substance use type: does not use Gender identity (if verbalized by the patient): Male Spiritual care concerns: No Meds Home Medications and Allergies Home Medications Medication Instructions Recorded Confirmed Type aspirin 81 mg tablet,delayed 81 mg PO DAILY 09/24/19 11/30/20 History release
[2020-12-04 22:00] VITALS: BP 150/80; PULSE 99; RESP 18; TEMP 36.9; O2SAT 99
[2020-12-04 22:09] LABS: Glucose Point of Care 371 mg/dl (65-105)
[2020-12-05] VITALS (15 sets, daily range): BP systolic 112–159; BP diastolic 69–82; PULSE 69–95; RESP 12–20; TEMP 36.3–37.2; O2SAT 94–100
--- NOTE | 2020-12-05 06:26 | WPDANESEPP ---
Anes - Eval Pre Procedure Procedure: I & D Right Diabetic Foot Ulcer Date/Time: 12/05/20 06:26 Surgeon: Alfonso Pre Op Diagnosis: Diabetic Foot Ulcer Patient Data Age: 65 Gender: M Height: 1.83 m Weight: 76 kg Last Vital Signs Temp 36.9 C 12/04/20 22:00 Pulse 99 12/04/20 22:00 Resp 18 12/04/20 22:00 BP 150/80 H 12/04/20 22:00 Pulse Ox 99 12/04/20 22:00 Allergies Allergy/AdvReac Type Severity Reaction Status Date / Time No Known Allergies Allergy Verified 11/30/20 09:03 Home Medications Medication Instructions Recorded Confirmed Type aspirin 81 mg tablet,delayed 81 mg PO DAILY 09/24/19 12/04/20 History release acetaminophen [Mapap 650 mg PO Q6H PRN #60 tablet 12/02/20 12/04/20 Rx (acetaminophen)] imipenem-cilastatin 500 mg IV Q6H #102 ea 12/02/20 12/04/20 Rx sodium chloride 10 ml IV PUSH PRN PRN #150 ml 12/02/20 12/04/20 Rx vancomycin in 0.9 % sodium chl 2,000 mg IV Q12H #51 ml 12/02/20 12/04/20 Rx Laboratory Tests 12/04/20 12/04/20 12/04/20 17:01 17:01 17:01 WBC 8.2 K/mm3 K/mm3 (4.5-10.0) RBC 4.42 M/mm3 L M/mm3 (4.6-6.20) Hgb 13.6 g/dL L g/dL (14.0-18.0) Hct 40.2 % L % (42.0-52.0) MCV 91.0 fl fl (80-100) MCH 30.8 pg pg (26-34) MCHC 33.8 g/dl g/dl (32-36) RDW 11.5 % % (11.5-14.5) Plt Count 270 k/mm3 k/mm3 (150-375) MPV 9.2 fl fl (7.4-10.4) Immature Gran % (Auto) 0.6 % H % (0-0.5) Neut % (Auto) 72.6 % % (45.5-73.1) Lymph % (Auto) 15.7 % L % (18.3-44.2) Wright % (Auto) 6.6 % % (2.6-8.5) Eos % (Auto) 3.9 % % (0-4.4) Baso % (Auto) 0.6 % % (0.2-1.2) Lymph # (Auto) 1.28 K/mm3 K/mm3 (0.9-3.2) Wright # (Auto) 0.5 K/mm3 K/mm3 (0.1-0.6) Eos # (Auto) 0.3 K/mm3 K/mm3 (0-0.3) Baso # (Auto) 0.1 K/mm3 K/mm3 (0.0-0.1) Abs Immat Gran (auto) 0.05 K/mm3 H K/mm3 (0.00-0.031) Absolute Neuts (auto) 5.9 K/mm3 K/mm3 (1.3-6.7) Absolute Nucleated RBC 0.0 K/mm3 K/mm3 (0.0-0.012) Nucleated RBC % 0.0 % % (0.0-0.2) ESR 51 mm/hr H mm/hr (0-20) PT 11.6 Seconds Seconds (11.1-14.7) INR 0.9 APTT 27.0 SECONDS SECONDS (22.3-36.8) Sodium 134 mmol/L L mmol/L (137-145) Potassium 4.3 mmol/L mmol/L (3.4-5.0) Chloride 99 mmol/L mmol/L (98-107) Carbon Dioxide 28 mmol/L mmol/L (22-30) Anion Gap 7 mmol/L L mmol/L (8-16) BUN 20 mg/dL mg/dL (9-20) Creatinine 0.50 mg/dL L mg/dL (0.7-1.3) Estim Creat Clear Calc 133 ml/min ml/min Estimated GFR > 60 (59 - ) Glucose 294 mg/dL H mg/dL (65-110) POC Capillary Glucose Calcium 9.5 mg/dL mg/dL (8.4-10.2) Total Bilirubin 0.7 mg/dL mg/dL (0.2-1.3) AST 26 U/L U/L (17-59) ALT 23 U/L U/L (4-50) Alkaline Phosphatase 100 U/L U/L (38-126) C-Reactive Protein 3.9 mg/dL H mg/dL (<1.0) Total Protein 7.0 g/dL g/dL (6.3-8.2) Albumin 3.9 g/dL g/dL (3.5-5.1) 12/04/20 20:44 WBC RBC Hgb Hct MCV MCH MCHC RDW Plt Count MPV Immature Gran % (Auto) Neut % (Auto) Lymph % (Auto) Wright % (Auto) Eos % (Auto) Baso % (Auto) Lymph # (Auto) Wright # (Auto) Eos # (Auto) Baso # (Auto) Abs Immat Gran (auto) Absolute Neuts (auto) Absolute Nucleated RBC Nucleated RBC % ESR PT INR APTT Sodium Potassium Chloride Carbon Dioxide Anion Gap BUN Creatinine Estim Creat Clear Calc Estimated GFR Glucose POC Capillary Glucose 371 mg/
--- NOTE | 2020-12-05 07:06 | PM.CNOR ---
Assessment and Plan Additional Plan Patient is a 65-year-old gentleman who presented to the emergency room yesterday afternoon with worsening infection appearance in the right foot. He was admitted to the hospital 5 days prior on Monday with 1 week history of increasing pain and swelling in the foot after stepping on a nail that entered the foot between the 2nd and 3rd metatarsal heads. It went through from plantar to dorsal. He had an MRI scan performed late in the day the day after admission which showed no abscess or fluid collection just cellulitis change and small effusions in multiple metatarsal phalangeal joints. With 1 night of elevation and IV antibiotics the appearance of the foot was dramatically improved. It was very swollen in the forefoot and midfoot on his initial admission. Monday morning I inspected the foot and there is essentially no swelling and his pain was dramatically improved. He was discharged on IV antibiotics and there has been some problem with the PICC line but I think he was nevertheless getting some of the antibiotics at least although the flow rate was very diminished. I think he was probably getting the antibiotics from his description it was just taking a very long time to run in. The day after he went home he started having increasing swelling and he does feel some pain. He has a 40 year history of diabetes and some diabetic neuropathy but he does feel some pain in the plantar forefoot primarily. Then yesterday he developed a blister over the dorsum of the webspace between the 3rd and 4th meta tarsals which was a 1 x 1 0.5 cm blister that popped there is some clear fluid that came out. We had told him to call us if there was recurrent swelling as this might mean the development of an abscess which would have to be incised and drained . He actually called his primary care physician who advised him to go to the emergency room. On his presentation last night there is an area about it and inch by 2 in wide on the distal plantar foot extending to the bases of the central toes that looks White and I believe there is purulent fluid underneath a thick plantar skin. On exam today he has no evidence of purulence or super a hawley or focal swelling notable on the dorsum of foot just the dry blister over the dorsum of the 3rd 4th toe webspace and there is no tenderness there. He does have tenderness over the plantar aspect of his foot. I have recommended that we take him to the OR to incise and drain the suspected fluid collection take cultures of the purulent fluid and debride tissue as necessary. I have explained to him that it is possible he may need further surgeries if necessary for further debridement or abscess decompression. I explained to him that he will not be able to put weight on this for a long time. He did have a meal in the emergency room last evening around 6:00 p.m. so his surgery was postponed until this morning. patient's past medical history is significant severely uncontrolled diabetes with her hemoglobin of A1c in the previous hospitalization of 13. He stop taking insulin 3 months ago because he felt it was making him tired. On exam he does have a 2+ posterior tibial artery pulse palpable and the foot is warm. The 3rd toe is a little bit swollen and slightly pink. He does report that he can feel me touch his toes but he has no sensation of me moving his big toe up and down whatsoever. There is no drainage or opening of the skin on the bottom of the foot. There is the patch of white appearing skin though as described above at the bases of the 2nd through 4th toes and the distal ball the foot this proximal to those toes. There is no swelling in the midfoot her ankle or tenderness. He can move his foot and ankle up and down and toes up and down without much difficulty. We will proceed this morning with incision and drainage as discussed. History of Present Illness HPI Consult date: 12/05/20 Chief complaint:
[2020-12-05] MEDS: INSULIN ASPART (*BKC) 100 UNITS/ML SUB-Q ×4 (07:16→17:29)
--- NOTE | 2020-12-05 07:17 | PM.IMPN ---
Progress Note: A&P Assessment and Plan (1) Foot abscess, right: Code(s): L02.611 - Cutaneous abscess of right foot Status: Acute Assessment and Plan: Plan to go to the OR today with Dr. Hamilton - patient has uncontrolled diabetes which may delay his healing but no worrisome signs and symptoms to prevent him from undergoing surgery. He is a low risk for his current procedure - continue imipenem and vancomycin - await surgical wound cultures - blood cultures pending (2) Cellulitis of foot, right: Code(s): L03.115 - Cellulitis of right lower limb Status: Acute Assessment and Plan: as above (3) Puncture wound of foot, right: Code(s): S91.331A - Puncture wound without foreign body, right foot, initial encounter Status: Acute Assessment and Plan: patient received his tetanus booster - continue as above (4) CAD (coronary artery disease): Code(s): I25.10 - Atherosclerotic heart disease of [place] coronary artery without angina pectoris Status: Acute Assessment and Plan: history of CABG in the past - no chest pain currently or history of recent chest pain - continue aspirin, will start tomorrow due to the I&D today - he is on no other medications - no signs of heart failure on exam -he has taken carvedilol in the past but it looks like he has not picked this up from his pharmacy since April (5) HTN (hypertension): Code(s): I10 - Essential (primary) hypertension Status: Acute Assessment and Plan: last blood pressure 139/74 - patient does not take any home medications - will monitor, likely will have to start therapy if he continues to run high (6) Diabetes: Code(s): E11.9 - Type 2 diabetes mellitus without complications Status: Acute Assessment and Plan: last glucose 238 at bedside, A1c 13 - since he is going to surgery, 2 units of sliding scale insulin has been given - patient states he took Lantus at home 30 units at night as well as some other medications but stopped these about 3 months ago because they were making him tired and he did not want to live a life like that. I explained him that it is very important to get his glucose under control or he is at risk for nonhealing with this infction and losing extremities as well as kidney disease, heart disease and problems with his vision. He agrees to restart some of his medications. - external data shows that he was given metformin, glimepiride and dapagliflozin in the past -Will do 15u of lantus and SSI and when it gets closer to discharge I will add oral medication. (7) GERD (gastroesophageal reflux disease): Code(s): K21.9 - Gastro-esophageal reflux disease without esophagitis Status: Acute Assessment and Plan: protonix daily Time Spent With Patient Time with patient: 25 - 35 minutes Subjective Date/time seen: 12/05/20 07:17 Interval history: Pt is a 65-year-old male here for foot wound who was seen today. Patient states his pain is relatively under control and he is doing all right. He said he came into the hospital due to a PICC line issue and his foot draining after popping a blister. at this time he denies nausea, vomiting, fevers, chills, chest pain, shortness of breath or abdominal pain. He says that he is a known diabetic and sees Dr. Lawler for this. About 3 months ago he took himself off all of his diabetic medications because he said it was making him tired and he was having to lay in bed all day. He is unsure of his regimen but knows he took 30 units of Lantus and no mealtime insulin. external data shows that he was also prescribed glimepiride, metformin and dapagliflozin. all of which he is not taking. patient states within the last year he has been diagnosed with colon cancer and had a surgery for such and has not needed any radiation or chemo. No shortness of breath or chest pain in the l
--- NOTE | 2020-12-05 07:19 | WPDHPUPDATE1 ---
History and Physical Update Update Date/Time: 12/05/20 07:19 History and Physical has been reviewed, including an updated exam of the patient. There are NO changes in the patient's condition. Risks, benefits, and alternatives have been discussed and questions answered. Patient agrees to proceed with procedure.
--- NOTE | 2020-12-05 07:26 | P.PNAN_ITS ---
Anes - Eval Final PreProcedure Day of Procedure 12/05/20 07:26 Patient weight: normal Heart: regular rate and rhythm Lungs: clear to auscultation Airway: Mallampati scale class II Neurological: alert and oriented Last oral intake: >/= 8 hours ASA classification: III Emergent: no Anesthetic plan: proceed Anesthesia type and monitoring: general LMA and standard monitoring Informed Consent: The patient's anesthetic plan and its attendant risks and b enefits were discussed with the patient/family/POA. Questions were solicited and answers provided to the satisfaction of the patient/family/POA.
[2020-12-05 07:47] LABS: Glucose Point of Care 238 mg/dl (65-105)
--- NOTE | 2020-12-05 08:07 | SUR.OPER ---
culture right foot and wound culture deep right foot
[2020-12-05] MEDS: LACTATED RINGERS 1,000 ML 30 ML IV CONT (08:17)
--- NOTE | 2020-12-05 08:17 | W.PM.PROC2 ---
Procedure Note - Detailed Date of Procedure 12/05/20 Pre-op Diagnosis Abscess right forefoot 1.5 weeks after stepping on a nail Post-op Diagnosis same Procedure Performed Incision drainage and debridement of plantar abscess around track of previous nail penetration between 3rd and 4th metacarpal phalangeal joints. Surgeon Lele Hamilton MD Investigator Welfare [place] Anesthesia general Indications Abscess Findings No shea purulence. See description of procedure Description of Procedure Patient was brought to the operating room and general anesthesia was administered. The right foot was prepped with ChloraPrep draped usual fashion. He is on vancomycin and imipenem antibiotics with the vancomycin running in now. Under the bright lights of the operating room at with the patient in some Trendelenburg the area of whiteness of the skin was easier to discern and discriminate from the surrounding thick plantar skin covering the rest of the ball of the foot. The white skin formed the shape of the letter T. the vertical limb of the T extended about 1-3/4 inches proximal to the distal end of the ball of the foot, proximal to the webspace between the 3rd and 4th toes. The transverse portion of the T extended laterally at the distal ball of the foot across the plantar aspect just distal to the 4th metatarsal phalangeal joint distally and medially just distal to the 3rd metatarsophalangeal joint to the base of the 3rd toe. There is also maceration of skin between the 3rd and 4th toes and extending about a cm into the opposing bases of the 3rd and 4th toes and there was dry blister material just dorsal to the webspace between the 3rd and 4th toes. There was a 3 mm eschar somewhat raised on the skin dorsal to the mid point between the distal 2nd and 3rd metatarsal necks. I had assumed that the nail went through the foot and that this was the exit wound when we saw him earlier in the week however I rubbed the eschar off with a sponge and there was nothing underneath it except for normal appearing skin. This indicates that that was not an exit wound or there would be at least a pink dot from a puncture wound of the nail 10-14 days ago and there was not. I incised the area of white plantar skin in the center of the T as I believed that there would be an abscess underneath this skin but in fact there was no purulence underneath the skin. This was and epidermal delamination essentially a blister formation of the thick plantar epidermis in the shape of a T and this was debrided to the point where the epidermis was attached to the dermis. Proximally in the vertical limb of the T, the nail entrance wound was noted. I could not express any purulent fluid. We we did insert a culture swab into the entrance wound for culture. A 12 mm longitudinal incision was made through the dermis centered on the entrance wound. Using a hemostat with a 4 x 4 to debride the track mechanically with the 4 x 4, I could feel the track extending between the 3rd and 4th metacarpophalangeal joints almost to the level of the skin dorsally which was a full cm lateral to the location of the 3 mm eschar that we in correctly assume was an exit wound eschar. I could feel there was a relative cavitation of the tissues in this region. There was minimal bleeding go from the subcutaneous fat. The skin edges had some bleeding. We did not need a tourniquet and after withdrawing a sponge we could see the white subcu fat in this area that seemed to be a bit necrotic and this was very conservatively debrided with a needle-nose rongeur. We sent this tissue to the lab for culture analysis as well. I was very careful to respect the fact that there would be longitudinally running digital nerves and digital arteries and we did not and counter those structures. After repeated insertion and with draw all of the 4 x 4 sponge deep in the sinus tract I felt that we had achieved appropriate mechanical debridement. There was no bleed
[2020-12-05 08:36] LABS: Glucose Point of Care 260 mg/dl (65-105)
[2020-12-05] MEDS: DOCUSATE SODIUM 100 MG CAPSULE PO ×2 (10:22→17:16)
[2020-12-05] MEDS: PANTOPRAZOLE SOD SESQUIHYDRATE 20 MG TAB PO (10:22)
--- NOTE | 2020-12-05 11:22 | PM.CNOR ---
Assessment and Plan Assessment and plan (1) Cellulitis of foot, right: Code(s): L03.115 - Cellulitis of right lower limb Status: Acute Assessment and Plan: right foot cellulitis after puncture wound. Uncontrolled insulin-dependent diabetes with peripheral neuropathy. Status post debridement of right foot this morning. Currently on intravenous antibiotics. Cultures and tissue sample pending. Reviewed with patient and family. Plan for dressing change in the morning to evaluate wound. Current dressing recently placed in the operating. Appreciate Infectious Disease. Further recommendations for foot and wound care pending re-evaluation in the morning. Reviewed with patient the need for optimum blood sugar control and compliance with treatment and weight-bearing restrictions/activity modifications. 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 Code(s): E11.9 - Type 2 diabetes mellitus without complications Status: Acute (3) Puncture wound of foot, right: Qualifiers: Encounter type: initial encounter Qualified Code(s): S91.331A - Puncture wound without foreign body, right foot, initial encounter Code(s): S91.331A - Puncture wound without foreign body, right foot, initial encounter Status: Acute History of Present Illness HPI Consult date: 12/05/20 Requesting physician: Lele Hamilton MD Consult reason: other ( right diabetic foot infection) Chief complaint: Diabetic Foot Ulcer Narrative: 65-year-old gentleman with history of nail puncture to the right plantar foot within the last 2 weeks. Initially treated for cellulitis intravenous antibiotics which started 5 days ago. Was discharged home and return to the emergency room yesterday for problems with function of the PICC line as well as increased swelling of the right foot. Patient had continued to be active with regular shoe wear in the interim. Taken to the operating room this morning for debridement of the right plantar foot. I have been asked by Dr. Hamilton to evaluate the patient for continued care of his right diabetic foot infection. Hospital record and operative notes reviewed. Diagnostic results including right foot radiograph, right foot MRI and cultures reviewed. Patient is uncontrolled insulin-dependent diabetic with recent hemoglobin A1c greater than 13 and complications including peripheral neuropathy. Patient states he had 1 other problem with his foot he stepped on a nail treated with oral antibiotics. Otherwise no history of osteomyelitis, diabetic foot ulcers, previous surgeries. Review of Systems Constitutional: Constitutional: Denies fever(s) Eyes: Eyes: Denies blurry vision ENT: Reports Normal hearing present Cardiovascular: Cardiovascular: Denies chest pain and Denies dyspnea Respiratory: Respiratory: Denies dyspnea and Denies wheezing Gastrointestinal: Gastrointestinal: Denies abdominal pain Genitourinary: Genitourinary: Denies urinary urgency Musculoskeletal: Musculoskeletal: Reports as per HPI and Reports numbness ( Toes both feet) Integumentary/Breasts: Skin/Breast: Reports wounds ( right plantar foot after stepping on nail) Neurologic: Reports Normal hearing present, Denies behavioral changes, Denies confusion and Denies convulsions Psychiatric: Psychiatric: Denies behavioral changes, Denies confusion and Denies hallucinations Endocrine: Endocrine: Denies heat intolerance Hematologic/Lymphatic: Hematologic/Lymphatic: Denies easy bleeding Allergic/Immunologic: Allergic/Immunologic: Denies wheezing PMFSH Past Medical History Medical History (Revi
[2020-12-05 11:40] LABS: Glucose Point of Care 223 mg/dl (65-105)
[2020-12-05] MEDS: IMIPENEM/CILASTATIN SODIUM 500 MG VIAL IVPB ×3 (11:50→23:14)
[2020-12-05] MEDS: ACETAMINOPHEN 325 MG TABLET 650 MG PO (13:50)
[2020-12-05 14:37] LABS: Glucose Point of Care 224 mg/dl (65-105)
[2020-12-05] MEDS: ALTEPLASE 2 MG VIAL (CATHFLO) IV PUSH (15:16)
[2020-12-05 17:58] LABS: Glucose Point of Care 201 mg/dl (65-105)
[2020-12-05] MEDS: INSULIN GLARGINE (*BKC) 100 UNITS/ML 15 UNITS SUB-Q (20:22)
[2020-12-05] MEDS: CENTRAL LINE FLUSH 10 ML IV PUSH (20:23)
[2020-12-05 21:43] LABS: Glucose Point of Care 289 mg/dl (65-105)
[2020-12-06 04:41] VITALS: BP 123/66; PULSE 72; RESP 16; TEMP 36.4; O2SAT 100
[2020-12-06] MEDS: IMIPENEM/CILASTATIN SODIUM 500 MG VIAL IVPB (05:09)
[2020-12-06] MEDS: CENTRAL LINE FLUSH 10 ML IV PUSH ×3 (05:10→21:09)
[2020-12-06 05:32] LABS: Basophils Percent Auto 0.7 % (0.2-1.2); Eosinophils Absolute Auto 0.3 K/mm3 (0-0.3); Eosinophils Percent Auto 4.2 % (0-4.4); Hematocrit 39.1 % (42.0-52.0); Immature Granulocyte Absolute 0.03 K/mm3 (0.00-0.031); Immature Granulocyte Percent A 0.5 % (0-0.5); Lymphocytes Absolute Auto 1.35 K/mm3 (0.9-3.2); Lymphocytes Percent Auto 22.7 % (18.3-44.2); Mean Corpuscular HGB Conc 33.2 g/dl (32-36); Mean Corpuscular Hemoglobin 30.3 pg (26-34); Mean Corpuscular Volume 91.1 fl (80-100); Monocytes Absolute Auto 0.5 K/mm3 (0.1-0.6); Monocytes Percent Auto 7.9 % (2.6-8.5); Neutrophils Absolute Auto 3.8 K/mm3 (1.3-6.7); Platelet Count Result 280 k/mm3 (150-375); Red Blood Count 4.29 M/mm3 (4.6-6.20); Red Cell Distribution Width 11.6 % (11.5-14.5)
[2020-12-06 06:12] LABS: Anion Gap 3 mmol/L (8-16); Blood Urea Nitrogen 12 mg/dL (9-20); CRP 1.5 mg/dL (<1.0); Calcium 8.6 mg/dL (8.4-10.2); Carbon Dioxide 31 mmol/L (22-30); Chloride 99 mmol/L (98-107); Estimated CRCL calculation 130 ml/min; Estimated Glomerular Filt Rate > 60; Glucose 225 mg/dL (65-110); Potassium 3.9 mmol/L (3.4-5.0); Sodium 133 mmol/L (137-145)
[2020-12-06 06:19] LABS: Vancomycin Trough 8.4 ug/mL (10.0-20.0)
[2020-12-06] MEDS: ACETAMINOPHEN 325 MG TABLET 650 MG PO ×2 (07:08→16:59)
[2020-12-06] MEDS: INSULIN ASPART (*BKC) 100 UNITS/ML SUB-Q ×2 (07:37→11:33)
[2020-12-06 08:00] LABS: Glucose Point of Care 221 mg/dl (65-105)
[2020-12-06] MEDS: PANTOPRAZOLE SOD SESQUIHYDRATE 20 MG TAB PO (08:04)
[2020-12-06] MEDS: DOCUSATE SODIUM 100 MG CAPSULE PO ×2 (08:04→16:59)
[2020-12-06] MEDS: ASPIRIN 81 MG ENTERIC TABLET PO (08:05)
[2020-12-06] MEDS: ENOXAPARIN 40 MG/0.4 ML SYRINGE SUB-Q (08:05)
--- NOTE | 2020-12-06 09:23 | PM.PNORT ---
Progress Note: A&P Assessment and Plan (1) Cellulitis of foot, right: Code(s): L03.115 - Cellulitis of right lower limb Status: Acute (2) Puncture wound of foot, right: Qualifiers: Encounter type: subsequent encounter Qualified Code(s): S91.331D - Puncture wound without foreign body, right foot, subsequent encounter Code(s): S91.331A - Puncture wound without foreign body, right foot, initial encounter Status: Acute Assessment and Plan: Dressing change this morning. Wound on the plantar aspect right foot without drainage. Would recommend adding silver gel to the wound with dry gauze covering and gauze wrap. Recommend fracture boot for protected weight-bearing. Patient may be discharged from orthopedic standpoint when medically stable on intravenous antibiotics. Will arrange follow-up. Subjective Subjective Date/Time Seen: 12/06/20 09:23 Principal diagnosis: Right diabetic foot infection, puncture wound Interval history: patient awake and alert. No new complaints. States his foot feels better, swelling improved. Review of Systems Constitutional: Constitutional: Denies fever(s) Eyes: Eyes: Denies blurry vision ENT: Reports Normal hearing present Cardiovascular: Cardiovascular: Denies chest pain and Denies dyspnea Respiratory: Respiratory: Denies dyspnea and Denies wheezing Gastrointestinal: Gastrointestinal: Denies abdominal pain Genitourinary: Genitourinary: Denies urinary urgency Musculoskeletal: Musculoskeletal: Reports as per HPI and Reports numbness ( Toes both feet) Integumentary/Breasts: Skin/Breast: Reports wounds ( right plantar foot after stepping on nail) Neurologic: Reports Normal hearing present, Denies behavioral changes, Denies confusion and Denies convulsions Psychiatric: Psychiatric: Denies behavioral changes, Denies confusion and Denies hallucinations Endocrine: Endocrine: Denies heat intolerance Hematologic/Lymphatic: Hematologic/Lymphatic: Denies easy bleeding Allergic/Immunologic: Allergic/Immunologic: Denies wheezing Exam Const: General: healthy appearing; No in distress or confusion Orientation/consciousness: oriented to person, oriented to place, oriented to time and No confusion HENMT: Head: normal to inspection, normocephalic and atraumatic Eyes: Conjunctivae: conjunctivae normal Sclera: sclerae normal Neck: Neck: supple and nontender Resp: Effort & Inspection: normal respiratory effort and no audible wheezes Cardio: Rate: regular rate Rhythm: regular rhythm Skin: General skin exam: no rashes or lesions noted Neuro: General: oriented to person, oriented to place, oriented to time and No confusion Extrem: Right upper extremity: normal to inspection and shoulder/upper arm ( PICC line in place) Left upper extremity: normal to inspection Right lower extremity: ankle Details: normal ROM ( active flexion and extension intact) and other ( negative Homans sign) and foot Details: vascular exam Details: dorsalis pedis pulse present, posterior tibial pulse present and normal capillary refill, tendon exam Details: active flexion abnormal and active extension abnormal, motor-sensory exam Details: two point discrimination abnormal Location: in all toes and other ( good capillary refill all toes) Left lower extremity: normal to inspection, ankle Details: normal to inspection, normal ROM ( flexion and extension intact) and other ( negative Homans sign); no tenderness and no swelling and foot Details: vascular exam Details: dorsalis pedis pulse present and posterior tibial pulse present, tendon exam active flexion normal and active extension normal and motor-sensory exam light-touch abnormal in all toes; no tenderness Other: Right foot dressing changed. 2 cm longitudinal opening on the plantar aspect between the 3rd and 4th metatarsal heads. No active drainage. Minimal swelling and erythema. Loss of surrounding epidermis. No wound on the
--- NOTE | 2020-12-06 09:50 | PM.IMPN ---
Progress Note: A&P Assessment and Plan (1) Foot abscess, right: Code(s): L02.611 - Cutaneous abscess of right foot Status: Acute Assessment and Plan: S/P incision and drainage as well as debridement of the plantar abscess of his right foot POD 1 -Await cultures and adjust abx according to that -Spoke with Dr. Lau who recommended waiting until cx come back and he sees pt tomorrow. No d/c today. Pt unahppy. -Continue glucose control to promote healing. Increase lantus and SSI. - continue imipenem and vancomycin - blood cultures NGTD (2) Cellulitis of foot, right: Code(s): L03.115 - Cellulitis of right lower limb Status: Acute Assessment and Plan: as above (3) Puncture wound of foot, right: Qualifiers: Encounter type: subsequent encounter Qualified Code(s): S91.331D - Puncture wound without foreign body, right foot, subsequent encounter Code(s): S91.331A - Puncture wound without foreign body, right foot, initial encounter Status: Acute Assessment and Plan: patient received his tetanus booster - continue as above (4) CAD (coronary artery disease): Code(s): I25.10 - Atherosclerotic heart disease of [place] coronary artery without angina pectoris Status: Acute Assessment and Plan: history of CABG in the past - no chest pain currently or history of recent chest pain - continue aspirin, monitor for bleeding - he is on no other medications - no signs of heart failure on exam -he has taken carvedilol in the past but it looks like he has not picked this up from his pharmacy since April (5) HTN (hypertension): Code(s): I10 - Essential (primary) hypertension Status: Acute Assessment and Plan: last blood pressure 123/66 - patient does not take any home medications - monitor trends (6) Diabetes: Qualifiers: Diabetes mellitus type: type 2 Diabetes mellitus chcf insulin use: with watermaster use Diabetes mellitus complication status: with neurologic complications Diabetes mellitus complication detail: with polyneuropathy Qualified Code(s): E11.42 - Type 2 diabetes mellitus with diabetic polyneuropathy; 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 I explained him that it is very important to get his glucose under control or he is at risk for nonhealing with this infection and losing extremities as well as kidney disease, heart disease and problems with his vision. He agrees to restart some of his medications. - external data shows that he was given metformin, glimepiride and dapagliflozin in the past -Will increase lantus to 20u and SSI and when it gets closer to discharge I will add oral medication (7) GERD (gastroesophageal reflux disease): Code(s): K21.9 - Gastro-esophageal reflux disease without esophagitis Status: Acute Assessment and Plan: protonix daily Subjective Date/time seen: 12/06/20 09:50 Interval history: Pt is a 65-year-old male here for foot wound who was seen today. Patient was seen today and states he is feeling well. Pt denies nausea, vomiting, fevers, chills, constipation, diarrhea, chest pain, sob, or abdominal pain. I had a conversation the plan of care and he seemed unhappy and wanted to go home. I explained to him it was important for us to get the culture back to make sure he is on the right antibiotics since his infection worsened when he got home a few days ago. He proceeded to scream profanity at me. He mentioned he might leave against medical advice. I called Dr. lau at
[2020-12-06 10:00] VITALS: BP 141/71; PULSE 79; RESP 16; TEMP 36.4; O2SAT 100
[2020-12-06] MEDS: SILVERGEL (ELTA) 45 ML 1 APPLIC TOPICAL (11:31)
[2020-12-06 11:47] LABS: Glucose Point of Care 341 mg/dl (65-105)
--- NOTE | 2020-12-06 12:57 | PM.PNORT ---
Progress Note: A&P Additional Plan Patient is postop day 1 after debridement of blister skin on the ball the foot distal to the puncture wound and the proximal ball of the foot between 3rd and 4th metatarsal heads. The skin underneath the blister removal is now dry and starting to rehab with the [facility] quickly as is the skin dorsal to the 3rd webspace. The 12 mm longitudinal incision over the puncture wound has mild to moderate serosanguineous drainage. There is no significant swelling today. Cultures are no growth so far. Sedimentation rate yesterday was 51 and C-reactive protein yesterday only 1.5 upper limit of normal is 1. Impression infection in the puncture wound track right foot associated with uncontrolled diabetes. He is on vancomycin and imipenem. Is stable medically at this time. Cultures pending Subjective Subjective Date/Time Seen: 12/06/20 12:57 Objective Data Vital Signs Vital Signs: Vital Signs - 24 hr 12/05/20 14:00 12/05/20 18:00 12/05/20 18:13 Temperature 37.2 C 37.1 C Pulse Rate 78 74 95 Respiratory Rate 18 16 18 Blood Pressure 129/69 146/72 H Pulse Oximetry 95 100 94 12/05/20 20:00 12/06/20 04:41 12/06/20 10:00 Temperature 36.4 C 36.4 C 36.4 C Pulse Rate 78 72 79 Respiratory Rate 16 16 16 Blood Pressure 159/82 H 123/66 141/71 H Pulse Oximetry 99 100 100 Intake/Output Intake/Output: Intake & Output 12/03/20 12/04/20 12/05/20 12/06/20 23:59 23:59 23:59 23:59 Intake Total 800 2880 990 Output Total 1450 Balance 800 1430 990 Meds/Results Medications: Active Medications Generic Name Dose Route Start Last Admin Trade Name Freq PRN Reason Stop Dose Admin Acetaminophen 650 mg 12/05/20 09:24 12/06/20 07:08 Acetaminophen 325 Mg Tablet PO 650 mg Q6H PRN Administration Mild Pain (1-3) Or Fever Alteplase, Recombinant 2 mg 12/05/20 13:04 12/05/20 15:16 Alteplase 2 Mg Vial (Cathflo) IV PUSH 2 mg ONCE PRN Administration Line Occlusion Aspirin 81 mg 12/06/20 09:00 12/06/20 08:05 Aspirin 81 Mg Enteric Tablet PO 81 mg DAILY RANDA Administration Dextrose 12.5 gm 12/06/20 07:49 Dextrose 50% 25 Gm/50 Ml Syringe IV PUSH PRN PRN Hypoglycemia Protocol Docusate Sodium 100 mg 12/05/20 09:24 12/06/20 08:04 Docusate Sodium 100 Mg Capsule PO 100 mg BID RANDA Administration Enoxaparin Sodium 40 mg 12/05/20 09:00 12/06/20 08:05 Enoxaparin 40 Mg/0.4 Ml Syringe SUB-Q 40 mg DAILY RANDA Administration Glucagon 1 mg 12/06/20 07:49 Glucagon For Inj 1 Mg Vial IM PRN PRN Hypoglycemia Protocol Glucose 15 gm 12/06/20 07:49 Glucose Oral Gel 15 Gm Of Glucse In 37.5 Gm Tube PO PRN PRN Hypoglycemia Protocol Vancomycin HCl 1,750 mg in 500 mls @ 250 mls/hr 12/06/20 07:00 12/06/20 09:16 Vancomycin 1,750 Mg/D5w 500 Ml IVPB Infused Q12H RANDA Infusion Dextrose 1,000 mls @ 100 mls/hr 12/06/20 07:49 Dextrose 5% 1,000 Ml IVPB PRN PRN Hypoglycemia Protocol Imipenem/Cilastatin Sodium 500 mg in 100 mls @ 300 mls/hr 12/06/20 12:00 12/06/20 11:32 Primaxin 500 Mg/D5w 100 Ml IVPB 300 mls/hr Q6HR RANDA Administration Insulin Aspart 4 - 8 units 12/06/20 08:00 12/06/20 11:33 Insulin Aspart (*Bkc) 100 Units/Ml SUB-Q 8 units TIDWM RANDA Administration Protocol Insulin Glargine 20 units 12/06/20 21:00 Insulin Glargine (*Bkc) 100 Units/Ml SUB-Q HS RANDA Magnesium Hydroxide 30 ml 12/05/20 09:24 Magnesium Hydroxide Susp 30 Ml Udc PO BID PRN Constipation Oxycodone HCl 5 mg 12/05/20 09:24 Oxycodone Hcl (*Crx) 5 Mg Tab Ir PO Q4H PRN Pain Rated 7-10 Pantoprazole Sodium 20 mg 12/05/20 09:00 12/06/20 08:04 Pantoprazole Sod Sesquihydrate 20 Mg Tab PO 20 mg QAM RANDA Administration Silver 1 each 12/06/20 09:00 12/06/20 11:32 Silver Foam Band (Mepilex Ag 4x4) Bandage TOPICAL 1 each DAILY RANDA Ad
[2020-12-06 14:00] VITALS: BP 120/61; PULSE 84; RESP 16; TEMP 36.1; O2SAT 99
[2020-12-06 16:41] LABS: Glucose Point of Care 132 mg/dl (65-105)
[2020-12-06] MEDS: INSULIN GLARGINE (*BKC) 100 UNITS/ML 20 UNITS SUB-Q (21:09)
[2020-12-06 21:16] VITALS: BP 125/72; PULSE 73; RESP 16; TEMP 36.8; O2SAT 98
[2020-12-06 21:17] LABS: Glucose Point of Care 288 mg/dl (65-105)
[2020-12-07 05:07] VITALS: BP 128/61; PULSE 70; RESP 16; TEMP 36.3; O2SAT 100
[2020-12-07] MEDS: ACETAMINOPHEN 325 MG TABLET 650 MG PO (06:00)
[2020-12-07] MEDS: CENTRAL LINE FLUSH 10 ML IV PUSH ×2 (06:01→15:21)
[2020-12-07 06:19] LABS: Hematocrit 37.1 % (42.0-52.0); Hemoglobin 12.6 g/dL (14.0-18.0); Mean Corpuscular Hemoglobin 30.4 pg (26-34); Mean Corpuscular Volume 89.4 fl (80-100); Mean Platelet Volume 8.9 fl (7.4-10.4); Platelet Count Result 284 k/mm3 (150-375); Red Blood Count 4.15 M/mm3 (4.6-6.20); Red Cell Distribution Width 11.6 % (11.5-14.5); White Blood Count 5.1 K/mm3 (4.5-10.0)
[2020-12-07 06:29] LABS: Anion Gap 4 mmol/L (8-16); Blood Urea Nitrogen 13 mg/dL (9-20); Calcium 8.4 mg/dL (8.4-10.2); Carbon Dioxide 30 mmol/L (22-30); Chloride 100 mmol/L (98-107); Estimated CRCL calculation 158 ml/min; Estimated Glomerular Filt Rate > 60; Glucose 220 mg/dL (65-110); Potassium 3.9 mmol/L (3.4-5.0); Sodium 134 mmol/L (137-145)
[2020-12-07 06:54] LABS: Glucose Point of Care 185 mg/dl (65-105)
--- NOTE | 2020-12-07 07:35 | PM.PNORT ---
Progress Note: A&P Assessment and Plan (1) Cellulitis of foot, right: Code(s): L03.115 - Cellulitis of right lower limb Status: Acute (2) Puncture wound of foot, right: Qualifiers: Encounter type: subsequent encounter Qualified Code(s): S91.331D - Puncture wound without foreign body, right foot, subsequent encounter Code(s): S91.331A - Puncture wound without foreign body, right foot, initial encounter Status: Acute Assessment and Plan: Dressing change this morning. Wound on the plantar aspect right foot without drainage. silver gel to the wound with dry gauze covering and gauze wrap. Recommend fracture boot for protected weight-bearing. Gr stain showing G neg bacilli. Await ID/ sens. Will arrange follow-up. Subjective Subjective Date/Time Seen: 12/07/20 07:35 Post Op day: 2 Principal diagnosis: RT DF infection Interval history: Patient without new complaints. Exam Const: General: healthy appearing; No in distress or confusion Orientation/consciousness: oriented to person, oriented to place, oriented to time and No confusion HENMT: Head: normal to inspection, normocephalic and atraumatic Eyes: Conjunctivae: conjunctivae normal Sclera: sclerae normal Neck: Neck: supple and nontender Resp: Effort & Inspection: normal respiratory effort and no audible wheezes Cardio: Rate: regular rate Rhythm: regular rhythm Skin: General skin exam: no rashes or lesions noted Neuro: General: oriented to person, oriented to place, oriented to time and No confusion Extrem: Right upper extremity: normal to inspection and shoulder/upper arm ( PICC line in place) Left upper extremity: normal to inspection Right lower extremity: ankle Details: normal ROM ( active flexion and extension intact) and other ( negative Homans sign) and foot Details: vascular exam Details: dorsalis pedis pulse present, posterior tibial pulse present and normal capillary refill, tendon exam Details: active flexion abnormal and active extension abnormal, motor-sensory exam Details: two point discrimination abnormal Location: in all toes and other ( good capillary refill all toes) Left lower extremity: normal to inspection, ankle Details: normal to inspection, normal ROM ( flexion and extension intact) and other ( negative Homans sign); no tenderness and no swelling and foot Details: vascular exam Details: dorsalis pedis pulse present and posterior tibial pulse present, tendon exam active flexion normal and active extension normal and motor-sensory exam light-touch abnormal in all toes; no tenderness Other: Right foot dressing changed. 2 cm longitudinal opening on the plantar aspect between the 3rd and 4th metatarsal heads. No active drainage. Minimal swelling and erythema. Loss of surrounding epidermis. No wound on the dorsum. Able to flex and extend toes. Sensation light touch absent all toes. Psych: Affect: normal affect Objective Data Vital Signs Vital Signs: Vital Signs - 24 hr 12/06/20 10:00 12/06/20 14:00 12/06/20 21:16 Temperature 97.6 F 97.0 F L 98.3 F Pulse Rate 79 84 73 Respiratory Rate 16 16 16 Blood Pressure 141/71 H 120/61 125/72 Pulse Oximetry 100 99 98 12/07/20 05:07 Temperature 97.4 F L Pulse Rate 70 Respiratory Rate 16 Blood Pressure 128/61 Pulse Oximetry 100 Intake/Output Intake/Output: Intake & Output 12/04/20 12/05/20 12/06/20 12/07/20 23:59 23:59 23:59 23:59 Intake Total 800 2880 2460 500 Output Total 1450 Balance 800 1430 2460 500 Meds/Results Medications: Active Medications Generic Name Dose Route Start Last Admin Trade Name Freq PRN Reason Stop Dose Admin Acetaminophen 650 mg 12/05/20 09:24 12/07/20 06:00 Acetaminophen 325 Mg Tablet PO 650 mg Q6H PRN Administration Mild Pain (1-3) Or Fever Alteplase, Recombinant 2 mg 12/05/20 13:04 12/05/20 15:16 Alteplase 2 Mg Vial (Cathflo) IV PUSH 2 mg ONCE PRN Administration Line Occl
[2020-12-07] MEDS: ENOXAPARIN 40 MG/0.4 ML SYRINGE SUB-Q (08:53)
[2020-12-07] MEDS: DOCUSATE SODIUM 100 MG CAPSULE PO (08:53)
[2020-12-07] MEDS: ASPIRIN 81 MG ENTERIC TABLET PO (08:53)
[2020-12-07] MEDS: metFORMIN HCL 500 MG TABLET PO (08:53)
[2020-12-07] MEDS: PANTOPRAZOLE SOD SESQUIHYDRATE 20 MG TAB PO (08:53)
[2020-12-07] MEDS: SILVERGEL (ELTA) 45 ML 1 APPLIC TOPICAL (08:54)
[2020-12-07 11:17] LABS: Glucose Point of Care 221 mg/dl (65-105)
[2020-12-07] MEDS: INSULIN ASPART (*BKC) 100 UNITS/ML SUB-Q ×2 (11:29)
--- NOTE | 2020-12-07 11:49 | PM.IMPN ---
Progress Note: A&P Assessment and Plan (1) Foot abscess, right: Code(s): L02.611 - Cutaneous abscess of right foot Status: Acute Assessment and Plan: 12/05 S/P incision and drainage as well as debridement of the plantar abscess of his right foot POD 1 -Await cultures results and ID input (2) Cellulitis of foot, right: Code(s): L03.115 - Cellulitis of right lower limb Status: Acute Assessment and Plan: Vanc and Primaxin, pending C/s (3) Puncture wound of foot, right: Qualifiers: Encounter type: subsequent encounter Qualified Code(s): S91.331D - Puncture wound without foreign body, right foot, subsequent encounter Code(s): S91.331A - Puncture wound without foreign body, right foot, initial encounter Status: Acute Assessment and Plan: patient received his tetanus booster (4) CAD (coronary artery disease): Code(s): I25.10 - Atherosclerotic heart disease of [place] coronary artery without angina pectoris Status: Acute Assessment and Plan: history of CABG in the past non-adherent to medical regimen (5) HTN (hypertension): Code(s): I10 - Essential (primary) hypertension Status: Acute Assessment and Plan: last blood pressure 123/66 - patient does not take any home medications - monitor trends (6) Diabetes: Qualifiers: Diabetes mellitus type: type 2 Diabetes mellitus terminal gauger insulin use: with skilled nursing use Diabetes mellitus complication status: with neurologic complications Diabetes mellitus complication detail: with polyneuropathy Qualified Code(s): E11.42 - Type 2 diabetes mellitus with diabetic polyneuropathy; 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 12/05 had debridement of right foot wound infection. 12/07 visit: Denied pain. Eating well. Denied cp, sob, swelling, n/v, stool changes, bleeding, urinary issues, abd pain, extremity pain. Numbness of feet due to diabetes. Review of Systems Review of Systems: All systems reviewed & are unremarkable except as noted in HPI and below Exam Narrative: General: Well developed well nourished patient in NAD HEENT: sclerae nonicteric Neck: no JVD CV:RRR, NL S1,2. No murmur. Resp:CTA, NL effort Abd: BS+, soft, non distended, nontender. Extremities: right foot recently wrapped Neuro: CN intact to inspection Psych: A/o x 4. Pleasant and cooperative. Objective Data Vital Signs Vital Signs: Vital Signs - 24 hr 12/06/20 14:00 12/06/20 21:16 12/07/20 05:07 Temperature 97.0 F L 98.3 F 97.4 F L Pulse Rate 84 73 70 Respiratory Rate 16 16 16 Blood Pressure 120/61 125/72 128/61 Pulse Oximetry 99 98 100 Intake/Output Intake/Output: Intake & Output 12/04/20 12/05/20 12/06/20 12/07/20 23:59 23:59 23:59 23:59 Intake Total 800 2880 2460 1480 Output Total 1450 Balance 800 1430 2460 1480 Meds/Results Medications: Active Medications Generic Name Dose Route Start Last Admin Trade Name Freq PRN Reason Stop Dose Admin Acetaminophen 650 mg 12/05/20 09:24 12/07/20 06:00 Acetaminophen 325 Mg Tablet PO 650 mg Q6H PRN Administration Mild Pain (1-3) Or Fever Alteplase, Recombinant 2 mg 12/05/20 13:04 12/05/20 15:16 Alteplase 2 Mg Vial (Cathflo) IV PUSH 2 mg ONCE PRN Administration Line Occlusion Aspirin 81 mg 12/06/20 09:00 12/07/20 08:53 Aspirin 81 Mg Enteric Tablet P
--- NOTE | 2020-12-07 13:12 | PM.PNORT ---
Subjective Subjective Date/Time Seen: 12/07/20 13:12Appreciate Dr Coreas assistance with pts care, on abx, awaiting sens. on cx, foot has min swelling Objective Data Vital Signs Vital Signs: Vital Signs - 24 hr 12/06/20 14:00 12/06/20 21:16 12/07/20 05:07 Temperature 36.1 C L 36.8 C 36.3 C L Pulse Rate 84 73 70 Respiratory Rate 16 16 16 Blood Pressure 120/61 125/72 128/61 Pulse Oximetry 99 98 100 Intake/Output Intake/Output: Intake & Output 12/04/20 12/05/20 12/06/20 12/07/20 23:59 23:59 23:59 23:59 Intake Total 800 2880 2460 1720 Output Total 1450 Balance 800 1430 2460 1720 Meds/Results Medications: Active Medications Generic Name Dose Route Start Last Admin Trade Name Freq PRN Reason Stop Dose Admin Acetaminophen 650 mg 12/05/20 09:24 12/07/20 06:00 Acetaminophen 325 Mg Tablet PO 650 mg Q6H PRN Administration Mild Pain (1-3) Or Fever Alteplase, Recombinant 2 mg 12/05/20 13:04 12/05/20 15:16 Alteplase 2 Mg Vial (Cathflo) IV PUSH 2 mg ONCE PRN Administration Line Occlusion Aspirin 81 mg 12/06/20 09:00 12/07/20 08:53 Aspirin 81 Mg Enteric Tablet PO 81 mg DAILY RANDA Administration Dextrose 12.5 gm 12/06/20 07:49 Dextrose 50% 25 Gm/50 Ml Syringe IV PUSH PRN PRN Hypoglycemia Protocol Docusate Sodium 100 mg 12/05/20 09:24 12/07/20 08:53 Docusate Sodium 100 Mg Capsule PO 100 mg BID RANDA Administration Enoxaparin Sodium 40 mg 12/05/20 09:00 12/07/20 08:53 Enoxaparin 40 Mg/0.4 Ml Syringe SUB-Q 40 mg DAILY RANDA Administration Glucagon 1 mg 12/06/20 07:49 Glucagon For Inj 1 Mg Vial IM PRN PRN Hypoglycemia Protocol Glucose 15 gm 12/06/20 07:49 Glucose Oral Gel 15 Gm Of Glucse In 37.5 Gm Tube PO PRN PRN Hypoglycemia Protocol Vancomycin HCl 1,750 mg in 500 mls @ 250 mls/hr 12/06/20 07:00 12/07/20 08:54 Vancomycin 1,750 Mg/D5w 500 Ml IVPB Infused Q12H RANDA Infusion Dextrose 1,000 mls @ 100 mls/hr 12/06/20 07:49 Dextrose 5% 1,000 Ml IVPB PRN PRN Hypoglycemia Protocol Imipenem/Cilastatin Sodium 500 mg in 100 mls @ 300 mls/hr 12/06/20 12:00 12/07/20 11:29 Primaxin 500 Mg/D5w 100 Ml IVPB 300 mls/hr Q6HR RANDA Administration Insulin Aspart 4 - 8 units 12/06/20 08:00 12/07/20 11:29 Insulin Aspart (*Bkc) 100 Units/Ml SUB-Q 4 units TIDWM RANDA Administration Protocol Insulin Aspart 4 units 12/07/20 08:00 12/07/20 11:29 Insulin Aspart (*Bkc) 100 Units/Ml 0.05 units/kg (4 units) 4 units SUB-Q Administration TIDWM RANDA Insulin Glargine 26 units 12/07/20 21:00 Insulin Glargine (*Bkc) 100 Units/Ml SUB-Q HS RANDA Magnesium Hydroxide 30 ml 12/05/20 09:24 Magnesium Hydroxide Susp 30 Ml Udc PO BID PRN Constipation Metformin HCl 500 mg 12/07/20 08:00 12/07/20 08:53 Metformin Hcl 500 Mg Tablet PO 500 mg BIDWM RANDA Administration Oxycodone HCl 5 mg 12/05/20 09:24 Oxycodone Hcl (*Crx) 5 Mg Tab Ir PO Q4H PRN Pain Rated 7-10 Pantoprazole Sodium 20 mg 12/05/20 09:00 12/07/20 08:53 Pantoprazole Sod Sesquihydrate 20 Mg Tab PO 20 mg QAM RANDA Administration Silver 1 each 12/06/20 09:00 12/07/20 08:53 Silver Foam Band (Mepilex Ag 4x4) Bandage TOPICAL 1 each DAILY RANDA Administration Silver Nitrate 1 applic 12/06/20 09:00 12/07/20 08:54 Silvergel (Elta) 45 Ml TOPICAL 1 applic DAILY RANDA Administration Sodium Chloride 10 ml 12/05/20 09:24 Saline Lock Flush IV PUSH PRN PRN with TPN bag changes Sodium Chloride 10 ml 12/05/20 22:00 12/07/20 06:01 Central Line Flush IV PUSH 10 ml Q8HR RANDA Administration Sodium Chloride 10 ml 12/05/20 17:21 Central Line Flush IV PUSH PRN PRN with TPN bag changes Sodium Chloride 20 ml 12/05/20 17:21 Central Line Flush IV PUSH PRN PRN after blood draws Radiolo
[2020-12-07 14:38] VITALS: BP 117/62; PULSE 81; RESP 14; TEMP 36.9; O2SAT 98
--- NOTE | 2020-12-07 16:32 | WPDINFPN2 ---
Progress Note: A&P Assessment and Plan (1) Foot abscess, right: Code(s): L02.611 - Cutaneous abscess of right foot Status: Acute Assessment and Plan: R foot abscess, culture falsely negative, not a medical failure REC Continue home Imipenem and Vanc, same stop date, ok home Subjective Date/time seen: 12/07/20 16:32 Objective Data Vital Signs Vital Signs: Vital Signs - 24 hr 12/06/20 21:16 12/07/20 05:07 12/07/20 14:38 Temperature 36.8 C 36.3 C L 36.9 C Pulse Rate 73 70 81 Respiratory Rate 16 16 14 Blood Pressure 125/72 128/61 117/62 Pulse Oximetry 98 100 98 Intake/Output Intake/Output: Intake & Output 12/04/20 12/05/20 12/06/20 12/07/20 23:59 23:59 23:59 23:59 Intake Total 800 2880 2460 1820 Output Total 1450 Balance 800 1430 2460 1820 Meds/Results Medications: Active Medications Generic Name Dose Route Start Last Admin Trade Name Freq PRN Reason Stop Dose Admin Acetaminophen 650 mg 12/05/20 09:24 12/07/20 06:00 Acetaminophen 325 Mg Tablet PO 650 mg Q6H PRN Administration Mild Pain (1-3) Or Fever Alteplase, Recombinant 2 mg 12/05/20 13:04 12/05/20 15:16 Alteplase 2 Mg Vial (Cathflo) IV PUSH 2 mg ONCE PRN Administration Line Occlusion Aspirin 81 mg 12/06/20 09:00 12/07/20 08:53 Aspirin 81 Mg Enteric Tablet PO 81 mg DAILY RANDA Administration Dextrose 12.5 gm 12/06/20 07:49 Dextrose 50% 25 Gm/50 Ml Syringe IV PUSH PRN PRN Hypoglycemia Protocol Docusate Sodium 100 mg 12/05/20 09:24 12/07/20 08:53 Docusate Sodium 100 Mg Capsule PO 100 mg BID RANDA Administration Enoxaparin Sodium 40 mg 12/05/20 09:00 12/07/20 08:53 Enoxaparin 40 Mg/0.4 Ml Syringe SUB-Q 40 mg DAILY RANDA Administration Glucagon 1 mg 12/06/20 07:49 Glucagon For Inj 1 Mg Vial IM PRN PRN Hypoglycemia Protocol Glucose 15 gm 12/06/20 07:49 Glucose Oral Gel 15 Gm Of Glucse In 37.5 Gm Tube PO PRN PRN Hypoglycemia Protocol Vancomycin HCl 1,750 mg in 500 mls @ 250 mls/hr 12/06/20 07:00 12/07/20 08:54 Vancomycin 1,750 Mg/D5w 500 Ml IVPB Infused Q12H RANDA Infusion Dextrose 1,000 mls @ 100 mls/hr 12/06/20 07:49 Dextrose 5% 1,000 Ml IVPB PRN PRN Hypoglycemia Protocol Imipenem/Cilastatin Sodium 500 mg in 100 mls @ 300 mls/hr 12/06/20 12:00 12/07/20 12:00 Primaxin 500 Mg/D5w 100 Ml IVPB Infused Q6HR RANDA Infusion Insulin Aspart 4 - 8 units 12/06/20 08:00 12/07/20 11:29 Insulin Aspart (*Bkc) 100 Units/Ml SUB-Q 4 units TIDWM RANDA Administration Protocol Insulin Aspart 4 units 12/07/20 08:00 12/07/20 11:29 Insulin Aspart (*Bkc) 100 Units/Ml 0.05 units/kg (4 units) 4 units SUB-Q Administration TIDWM [facility] Insulin Glargine 26 units 12/07/20 21:00 Insulin Glargine (*Bkc) 100 Units/Ml SUB-Q HS RANDA Magnesium Hydroxide 30 ml 12/05/20 09:24 Magnesium Hydroxide Susp 30 Ml Udc PO BID PRN Constipation Metformin HCl 500 mg 12/07/20 08:00 12/07/20 08:53 Metformin Hcl 500 Mg Tablet PO 500 mg BIDWM RANDA Administration Oxycodone HCl 5 mg 12/05/20 09:24 Oxycodone Hcl (*Crx) 5 Mg Tab Ir PO Q4H PRN Pain Rated 7-10 Pantoprazole Sodium 20 mg 12/05/20 09:00 12/07/20 08:53 Pantoprazole Sod Sesquihydrate 20 Mg Tab PO 20 mg QAM RANDA Administration Silver 1 each 12/06/20 09:00 12/07/20 08:53 Silver Foam Band (Mepilex Ag 4x4) Bandage TOPICAL 1 each DAILY RANDA Administration Silver Nitrate 1 applic 12/06/20 09:00 12/07/20 08:54 Silvergel (Elta) 45 Ml TOPICAL 1 applic DAILY RANDA Administration Sodium Chloride 10 ml 12/05/20 09:24 Saline Lock Flush IV PUSH PRN PRN with TPN bag changes Sodium Chloride 10 ml 12/05/20 22:00 12/07/20 15:21 Central Line Flush IV PUSH 10 ml Q8HR RANDA Administration Sodium Chloride 10 ml 12/05/20 17:21 Centra
--- NOTE | 2020-12-07 18:12 | CONS_ITS ---
DATE OF CONSULTATION: 12/07/2020 REASON FOR CONSULTATION: Foot abscess. HISTORY OF PRESENT ILLNESS: 65-year-old male who is known from his previous admission earlier last week. He had a puncture wound to the plantar right foot with a long nail. Investigation at the time indicated no abscess but cellulitis was present. Due to his high risk injury, I placed him on imipenem and vancomycin, planned through December 27. He tolerated this well. Has a PICC in place and was discharged. He returned to the emergency room on the with drainage from the plantar wound. He was taken to the operating room the following day, where he underwent exploration of the wound. A small amount of purulence was evacuated. Other findings as outlined by Dr. Hamilton. He remains on his antibiotics. He denies fever, chills, sweats, any new trauma or any skin rash or diarrhea. ALLERGIES: NONE KNOWN. PRESENT MEDICATIONS: See above. HABITS: Ex-smoker. No alcohol. PAST MEDICAL HISTORY: As detailed on his chart. No updates since his last admission. REVIEW OF SYSTEMS: Musculoskeletal, skin, endocrine, GI, respiratory negative other than hyperglycemia. FAMILY HISTORY: See record. SOCIAL HISTORY: See record. PHYSICAL EXAMINATION: GENERAL: Pleasant male in no distress. Appears actual age. VITAL SIGNS: Afebrile. 117/62, 81, 14, 98%. SKIN: Warm and dry. EENT: The conjunctivae are clear. Oral mucosa is well hydrated. NECK: No masses. LUNGS: Clear to auscultation and percussion. CARDIAC: Regular rate and rhythm. No murmurs or gallops. ABDOMEN: Nontender. No masses. No organomegaly. Soft. EXTREMITIES: His foot is dressed. There is no peripheral edema, clubbing, or cyanosis. He has no proximal erythema nor warmth nor streaking. LABORATORY DATA: From the operating room, Gram stains, no organisms seen and many white cells. Culture, no growth 2 days incubation. Blood cultures were done as well and no growth so far as they were on November 29. White counts have been consistently normal. Hemoglobin 12.6, platelets are 284. Chemistry panel normal other than hyperglycemia. Accu-Cheks widely variable. His CRP is down to 1.5. This was performed yesterday morning. RADIOLOGY: Foot x-ray again shows no bone destruction, suggestion for gout. ASSESSMENT: 1. Foot abscess after a puncture wound, now postop day 2 and stable. This does not represent a medical failure. Cultures are falsely negative due to pre-existing antibiotic therapy. 2. Diabetes mellitus, poor control overall. 3. Atherosclerosis. RECOMMENDATIONS: 1. Continue imipenem and vancomycin, stopping on December 27 as long as our acceptable clinical progress in the meantime. 2. Okay with me for discharge. 3. Thank you for asking me to see him. EARL CHAVIRA M.D. BAND INSTRUMENT REPAIRER BAND INSTRUMENT REPAIRER D I MT: Angelina
--- NOTE | 2020-12-07 18:41 | PM.DS ---
DS: Admitting Diagnosis Admitting Diagnosis right foot abscess DS: Discharge Diagnosis Discharge Diagnosis (1) Foot abscess, right: Code(s): L02.611 - Cutaneous abscess of right foot Status: Acute Assessment and Plan: 12/05 S/P incision and drainage as well as debridement of the plantar abscess of his right foot POD 1 12/07 to continue home regimen (2) Cellulitis of foot, right: Code(s): L03.115 - Cellulitis of right lower limb Status: Acute Assessment and Plan: Vanc and Primaxin C/s pending (3) Puncture wound of foot, right: Qualifiers: Encounter type: subsequent encounter Qualified Code(s): S91.331D - Puncture wound without foreign body, right foot, subsequent encounter Code(s): S91.331A - Puncture wound without foreign body, right foot, initial encounter Status: Acute Assessment and Plan: patient received his tetanus booster (4) CAD (coronary artery disease): Code(s): I25.10 - Atherosclerotic heart disease of [place] coronary artery without angina pectoris Status: Acute Assessment and Plan: history of CABG in the past non-adherent to medical regimen (5) HTN (hypertension): Code(s): I10 - Essential (primary) hypertension Status: Acute Assessment and Plan: 12/07 bp reviewed and stable - patient does not take any home medications (6) Diabetes: Qualifiers: Diabetes mellitus type: type 2 Diabetes mellitus 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 helper insulin use: with snf use Diabetes mellitus complication status: with neurologic complications Diabetes mellitus complication detail: with polyneuropathy Qualified Code(s): E11.42 - Type 2 diabetes mellitus with diabetic polyneuropathy; Z79.4 - nursing home (current) use of insulin Code(s): E11.9 - Type 2 diabetes mellitus without complications Status: Acute Assessment and Plan: last glucose 221, A1c 13 Increased Lantus, added pre-meal, continue SSI (7) GERD (gastroesophageal reflux disease): Code(s): K21.9 - Gastro-esophageal reflux disease without esophagitis Status: Acute Assessment and Plan: protonix daily DS: Summary Hospital Course Reason for hospitalization: right foot abscess Hospital Course: Admitted 12/04 with increased swelling of his foot wound. Receiving vancomycin and Primaxin at home through a PICC line. Was recently discharged. Was to continue his home antibiotics in mid-December. He was seen by infectious disease as well as Orthopedics. He was taken to the operating room December 05 after MRI of the foot revealed no evidence for osteomyelitis. The wound was successfully debrided by his orthopedic surgeon. He tolerated the surgery well. Blood sugars control was improved during hospitalization. From 349 on day of admission to 220 on day of discharge. No hypoglycemia. Results of blood cultures were negative on day of discharge. Results of wound cultures were pending. He was to continue his vancomycin and Primaxin as previously and to follow-up with home health and home and his surgeon as an outpatient and his primary care physician. MRI Right Foot: IMPRESSION: 1. No specific evidence of osteomyelitis. 2. Foci of gas in the plantar soft tissues between the third and fourth digits, likely introduced by the puncture wound. 3. Polyarticular osteoarthritis. 4. Erosion at medial aspect of head of first proximal phalanx, which may be secondary to gout. 5. Small effusions of first-third metatarsophalangeal joints. Status at Discharge Overall status at discharge: patient is progressing back to baseline Time Spent with Patient Time attestation: Total time spent providing and/or coordinating discharge services: Time spent: Greater than 30 minutes Exam Narrative: General: Well developed well nourished patient in NAD HEENT: sclerae nonicteric Neck: no JVD CV:RRR, NL S1,2. No murmur. Resp:CT
== END 2020-12-07 19:06 | disposition home health service (06) | DRG 603 ==
LOC: ANHED 18:25 → ANH2MED 12-05 06:42
PROVIDERS: Orthopaedic Surgery; Admitting Provider Family Medicine; Emergency Provider Emergency Medicine; PCP Family Medicine; Visit Provider Physician Assistant
PROC: 0HDMXZZ Extraction of Right Foot Skin, External Approach (ICD-10-PCS; principal; 2020-12-05 07:30)
DX: L02.611 Cutaneous abscess of right foot (principal); L03.115 Cellulitis of right lower limb; E11.42 Type 2 diabetes mellitus with diabetic polyneuropathy; E11.65 Type 2 diabetes mellitus with hyperglycemia; S91.331A Puncture wound without foreign body, right foot, initial encounter; W22.8XXA Striking against or struck by other objects, initial encounter; I25.10 Atherosclerotic heart disease of native coronary artery without angina pectoris; I10 Essential (primary) hypertension; K21.9 Gastro-esophageal reflux disease without esophagitis; Z79.4 Long term (current) use of insulin; Z79.82 Long term (current) use of aspirin; Z85.038 Personal history of other malignant neoplasm of large intestine; Z87.891 Personal history of nicotine dependence; Z95.828 Presence of other vascular implants and grafts
CPT/HCPCS: 36415; 73630; 80048; 80053; 80202; 82948; 85025; 85027; 85610; 85652; 85730; 86140; 87040; 87070; 87075; 87205; 99285; A9270; J0131; J0743; J1650; J1815; J2250; J2405; J2704; J2997; J3010; J3370; J7030; J7120

== ENCOUNTER 2020-12-11 15:31 | Emergency (ER) | payer OTHER, SELFPAY ==
[2020-12-11 15:34] VITALS: BP 126/71; PULSE 92; RESP 18; TEMP 37.2; O2SAT 98
[2020-12-11] MEDS: ALTEPLASE 2 MG VIAL (CATHFLO) IV PUSH ×2 (16:42→16:43)
--- NOTE | 2020-12-11 17:39 | ED.GENADULT ---
HPI - General Adult General Chief complaint: Unspecified Stated complaint: PICC Line clogged Time Seen by Provider: 12/11/20 16:01 Source: patient and RN notes reviewed Mode of arrival: ambulatory Limitations: no limitations History of Present Illness HPI narrative: Patient had a PICC line for IV antibiotic infusion, got clogged,. Patient denies any pain, fever, chills, nausea, vomiting. Related Data Home Medications Medication Instructions Recorded Confirmed aspirin 81 mg tablet,delayed 81 mg PO DAILY 09/24/19 12/04/20 release Allergies Allergy/AdvReac Type Severity Reaction Status Date / Time No Known Allergies Allergy Verified 12/11/20 15:44 Review of Systems Review of Systems: CONSTITUTIONAL: Denies fever, chills, or sweats. EYES: Denies visual changes, redness, or discharge. ENT: Denies rhinorrhea, congestion, sore throat, or otalgia. CARDIOVASCULAR: Denies chest pain, palpitations, or edema. RESPIRATORY: Denies cough or dyspnea. GASTROINTESTINAL: Denies abdominal pain, nausea, vomiting, or diarrhea. GENITOURINARY: Denies dysuria or hematuria. SKIN: Denies rash or itching. MUSCULOSKELETAL: Denies back pain, joint pain, or myalgia. NEUROLOGIC: Denies headache, numbness, or weakness. PSYCHIATRIC: Denies anxiety or depression. [facility] Past Medical History Medical History CAD (coronary artery disease) Status post CABG Cancer of transverse colon Status post right hemicolectomy Carpal tunnel syndrome Diabetes GERD (gastroesophageal reflux disease) HTN (hypertension) Surgical History Surgical History Finger amputee H/O hernia repair 2019 H/O right knee surgery Hiatal hernia with GERD 1990 History of hand surgery History of right hemicolectomy with ileocolic anastomsis in 2019 Hx of CABG Family History Family History Sibling Family history of malignant neoplasm Father Family history of chronic obstructive pulmonary disease Hypertension Heart disease Mother Hypertension Cancer Sibling Cancer Sibling Cancer Sibling Cancer Social History Social History Smoking status: Former smoker Tobacco type: cigarettes Second hand tobacco smoke exposure: No Additional smoking assessment comments: quit smoking over 30 years ago Alcohol intake: former Substance use: never Substance use type: does not use Gender identity (if verbalized by the patient): Male Spiritual care concerns: No Exam Narrative: General appearance: Well-developed, well-nourished Skin: Normal color, right arm showed PICC line in place, no erythema, no warmth, no discharge, no local tenderness Vascular: Normal peripheral pulses, normal capillary refill. Musculoskeletal: Normal range of motion, nontender back Neurologic: Alert and oriented ?3, Course Course Emergency Course: Stable Vital Signs Vital signs: Vital Signs Temperature 37.2 C 12/11/20 15:34 Pulse Rate 92 12/11/20 15:34 Respiratory Rate 18 12/11/20 15:34 Blood Pressure 126/71 12/11/20 15:34 Pulse Oximetry 98 12/11/20 15:34 Temperature 37.2 C 12/11/20 15:34 Pulse Rate 92 12/11/20 15:34 Respiratory Rate 18 12/11/20 15:34 Blood Pressure 126/71 12/11/20 15:34 Pulse Oximetry 98 12/11/20 15:34 Medical Decision Making MDM Narrative Medical decision making narrative: Clogged PICC line. Altase tanya ordered,, successful procedure managed by the nurse. . Differential Diagnosis Differential Diagnosis: Clogged the P
[2020-12-11 17:57] VITALS: BP 145/85; PULSE 77; RESP 18; O2SAT 98
== END 2020-12-11 17:40 | disposition home or self-care (01) ==
PROVIDERS: Emergency Provider Emergency Medicine; PCP Family Medicine
DX: T82.594A Other mechanical complication of infusion catheter, initial encounter (principal); I25.10 Atherosclerotic heart disease of native coronary artery without angina pectoris; E11.9 Type 2 diabetes mellitus without complications; K21.9 Gastro-esophageal reflux disease without esophagitis; I10 Essential (primary) hypertension; Z85.038 Personal history of other malignant neoplasm of large intestine; Z90.49 Acquired absence of other specified parts of digestive tract; Z87.891 Personal history of nicotine dependence; Z79.82 Long term (current) use of aspirin; Z79.4 Long term (current) use of insulin
CPT/HCPCS: 36593; 37195; 99284; J2997

== ENCOUNTER 2020-12-14 09:46 | Outpatient (RCR) | payer OTHER, SELFPAY ==
[2020-12-10 10:18] LABS: Basophils Absolute Auto 0.1 K/mm3 (0.0-0.1); Basophils Percent Auto 1.2 % (0.2-1.2); Eosinophils Absolute Auto 0.3 K/mm3 (0-0.3); Hematocrit 40.7 % (42.0-52.0); Hemoglobin 13.6 g/dL (14.0-18.0); Immature Granulocyte Absolute 0.03 K/mm3 (0.00-0.031); Immature Granulocyte Percent A 0.5 % (0-0.5); Lymphocytes Absolute Auto 1.27 K/mm3 (0.9-3.2); Lymphocytes Percent Auto 19.3 % (18.3-44.2); Mean Corpuscular HGB Conc 33.4 g/dl (32-36); Mean Corpuscular Hemoglobin 30.6 pg (26-34); Mean Corpuscular Volume 91.5 fl (80-100); Mean Platelet Volume 9.6 fl (7.4-10.4); Monocytes Absolute Auto 0.5 K/mm3 (0.1-0.6); Monocytes Percent Auto 7.2 % (2.6-8.5); Neutrophils Absolute Auto 4.4 K/mm3 (1.3-6.7); Neutrophils Percent Auto 66.8 % (45.5-73.1); Platelet Count Result 356 k/mm3 (150-375); Red Blood Count 4.45 M/mm3 (4.6-6.20); Red Cell Distribution Width 11.7 % (11.5-14.5); White Blood Count 6.6 K/mm3 (4.5-10.0)
[2020-12-10 10:32] LABS: Anion Gap 5 mmol/L (8-16); Blood Urea Nitrogen 17 mg/dL (9-20); CRP 1.4 mg/dL (<1.0); Calcium 9.4 mg/dL (8.4-10.2); Carbon Dioxide 32 mmol/L (22-30); Chloride 95 mmol/L (98-107); Estimated Glomerular Filt Rate > 60; Glucose 330 mg/dL (65-110); Potassium 4.4 mmol/L (3.4-5.0); Sodium 132 mmol/L (137-145)
[2020-12-10 11:05] LABS: Vancomycin Trough 7.5 ug/mL (10.0-20.0)
[2020-12-14 09:58] LABS: Basophils Absolute Auto 0.1 K/mm3 (0.0-0.1); Eosinophils Absolute Auto 0.5 K/mm3 (0-0.3); Eosinophils Percent Auto 5.8 % (0-4.4); Hematocrit 37.7 % (42.0-52.0); Hemoglobin 12.7 g/dL (14.0-18.0); Immature Granulocyte Absolute 0.06 K/mm3 (0.00-0.031); Immature Granulocyte Percent A 0.7 % (0-0.5); Lymphocytes Absolute Auto 1.04 K/mm3 (0.9-3.2); Lymphocytes Percent Auto 11.8 % (18.3-44.2); Mean Corpuscular HGB Conc 33.7 g/dl (32-36); Mean Corpuscular Hemoglobin 30.5 pg (26-34); Mean Corpuscular Volume 90.6 fl (80-100); Mean Platelet Volume 10.1 fl (7.4-10.4); Monocytes Absolute Auto 0.8 K/mm3 (0.1-0.6); Monocytes Percent Auto 8.8 % (2.6-8.5); Neutrophils Absolute Auto 6.4 K/mm3 (1.3-6.7); Neutrophils Percent Auto 71.9 % (45.5-73.1); Platelet Count Result 338 k/mm3 (150-375); Red Blood Count 4.16 M/mm3 (4.6-6.20); Red Cell Distribution Width 11.9 % (11.5-14.5); White Blood Count 8.8 K/mm3 (4.5-10.0)
[2020-12-14 10:43] LABS: Anion Gap 6 mmol/L (8-16); Blood Urea Nitrogen 18 mg/dL (9-20); CRP 0.5 mg/dL (<1.0); Calcium 8.5 mg/dL (8.4-10.2); Carbon Dioxide 27 mmol/L (22-30); Chloride 98 mmol/L (98-107); Estimated Glomerular Filt Rate > 60; Glucose 436 mg/dL (65-110); Sodium 131 mmol/L (137-145)
[2020-12-14 11:02] LABS: Vancomycin Trough 8.1 ug/mL (10.0-20.0)
== END 2021-03-10 23:59 | disposition home or self-care (01) ==
LOC: HOME HLTH 09:46
PROVIDERS: PCP Family Medicine; Visit Provider Internal Medicine Infectious Disease
DX: L03.115 Cellulitis of right lower limb (principal); S91.331D Puncture wound without foreign body, right foot, subsequent encounter
CPT/HCPCS: 80048; 80202; 85025; 86140

== ENCOUNTER 2020-12-17 10:00 | Outpatient (NON) | payer OTHER, SELFPAY ==
[2020-12-17 10:34] LABS: Hematocrit 38.7 % (37.0-46.0); Hemoglobin 13.1 g/dL (12.4-15.3); Mean Corpuscular HGB Conc 33.9 g/dL (32.0-36.0); Mean Corpuscular Hemoglobin 30.5 pg (27.0-31.0); Mean Platelet Volume 10.2 fl (8.7-11.0); Platelet Count Result 302 K/mm3 (150-420); Red Cell Distribution Width 11.8 % (11.6-14.4); White Blood Count 5.7 K/mm3 (4.8-10.8)
[2020-12-17 10:57] LABS: Anion Gap 3 mmol/L (8-16); Calcium 9.1 mg/dL (8.5-10.1); Carbon Dioxide 33 mmol/L (21-32); Chloride 99 mmol/L (98-108); Estimated Glomerular Filt Rate > 60; Potassium 4.4 mmol/L (3.5-5.1); Sodium 135 mmol/L (136-145)
[2020-12-17 11:10] LABS: Blood Urea Nitrogen 19 mg/dL (7-18); CRP < 0.5 mg/dL (0.0-0.9)
[2020-12-17 11:19] LABS: Glucose 507 mg/dL (70-99); Osmolality Calculated 305 mOsm/kg (285-295)
[2020-12-17 11:34] LABS: Band Neutrophils Percent 0 % (0-6); Eosinophils Absolute Manual 1.14 K/mm3 (0.02-0.5); Eosinophils Percent Manual 20 % (1-6); Lymphocytes Absolute Manual 1.53 K/mm3 (1.1-4.5); Lymphocytes Percent Manual 27 % (18-44); Neutrophils Absolute Manual 2.67 K/mm3 (1.3-6.7); Neutrophils Percent Manual 47 % (46-73); Platelet Estimate Adequate (Adequate); Total Cells Counted 100
== END 2020-12-17 10:01 | disposition home or self-care (01) ==
LOC: CHSLAB 10:03 → CHSHH 10:12
PROVIDERS: Visit Provider Internal Medicine Infectious Disease
DX: L03.115 Cellulitis of right lower limb (principal)
CPT/HCPCS: 36415; 80048; 85025; 85060; 86140

== ENCOUNTER 2020-12-18 01:24 | Emergency (ER) | payer OTHER, SELFPAY ==
[2020-12-18 01:25] VITALS: BP 155/77; PULSE 83; RESP 19; TEMP 36.1; O2SAT 100
[2020-12-18 01:35] VITALS: BP 159/88; PULSE 74; RESP 16; TEMP 36.3; O2SAT 100
--- NOTE | 2020-12-18 01:54 | PC.NURSE ---
Flushed both caps with 10 ml NS. Unable to get blood return.
--- NOTE | 2020-12-18 02:21 | ED.GENADULT ---
HPI - General Adult General Chief complaint: Unspecified Stated complaint: PICC line malfunctioning Time Seen by Provider: 12/18/20 01:41 History of Present Illness HPI narrative: Patient presents with clogged PICC line. Patient reports he has infected hardware and gets IV antibiotics at home. Today his home health nurse came and had a difficult time drawing blood but they were able to infuse antibiotics. When he was trying to get his midnight dose he was unable to infuse any more antibiotics so he came to the ER for evaluation. Denies any chest pain, shortness of breath, arm pain Related Data Home Medications Medication Instructions Recorded Confirmed aspirin 81 mg tablet,delayed 81 mg PO DAILY 09/24/19 12/04/20 release Allergies Allergy/AdvReac Type Severity Reaction Status Date / Time No Known Allergies Allergy Verified 12/18/20 01:39 Review of Systems Review of Systems: CONSTITUTIONAL: Denies fever, chills, or sweats. EYES: Denies visual changes, redness, or discharge. CARDIOVASCULAR: Denies chest pain, palpitations, or edema. RESPIRATORY: Denies cough or dyspnea. GASTROINTESTINAL: Denies abdominal pain, nausea, vomiting, or diarrhea. SKIN: Denies rash or itching. MUSCULOSKELETAL: Denies back pain, joint pain, or myalgia. NEUROLOGIC: Denies headache, numbness, dizziness, or weakness. [facility] Past Medical History Medical History CAD (coronary artery disease) Status post CABG Cancer of transverse colon Status post right hemicolectomy Carpal tunnel syndrome Diabetes GERD (gastroesophageal reflux disease) HTN (hypertension) Surgical History Surgical History Finger amputee H/O hernia repair 2019 H/O right knee surgery Hiatal hernia with GERD 1989 History of hand surgery History of right hemicolectomy with ileocolic anastomsis in 2019 Hx of CABG Family History Family History Sibling Family history of malignant neoplasm Father Family history of chronic obstructive pulmonary disease Hypertension Heart disease Mother Hypertension Cancer Sibling Cancer Sibling Cancer Sibling Cancer Social History Social History Smoking status: Former smoker Tobacco type: cigarettes Second hand tobacco smoke exposure: No Additional smoking assessment comments: quit smoking over 30 years ago Alcohol intake: former Substance use: never Substance use type: does not use Gender identity (if verbalized by the patient): Male Spiritual care concerns: No Exam Narrative: GENERAL: Well-appearing, well-nourished, and in no acute distress. HEAD: Normocephalic, atraumatic. EYES: PERRLA and EOMI. ENT: Nares clear, no rhinorrhea or epistaxis. Mucous membranes moist. NECK: Supple. No masses. No JVD EXTREMITIES: Normal range of motion. No edema., PICC line on the right upper extremity SKIN: Warm, dry, no rash. NEURO: No focal deficits. Alert and oriented x3. PSYCH: Normal mood and affect. Course Reevaluation(s) Reevaluation #1: PICC line now flushes and withdrawals after treatment with alteplase. Date: 12/18/20 Time: 03:56 Vital Signs Vital signs: Vital Signs Temperature 36.1 C L 12/18/20 01:25 Pulse Rate 83 12/18/20 01:25 Respiratory Rate 19 12/18/20 01:25 Blood Pressure 155/77 H 12/18/20 01:25 Pulse Oximetry 100 12/18/20 01:25 Temperature 36.3 C L 12/18/20 01:35 Pulse Rate 66 12/18/20 03:24 Respiratory Rate 16 12/18/20 03:24 Blood Pressure 136/87 12/18/20 03:24 Pulse Oximetry 100 12/18/20 03:24 Medical Decision Making [facility] Narrative Medical decision making narrative: Patient presents with PICC line malfunction has no other acute complaints or focal areas of discomfort. Attempted to flush and draw a line unsuccessfu
--- NOTE | 2020-12-18 02:50 | PC.NURSE ---
Cathflo administered per hospital policy to each lumen at this time per ERP VRBO.
[2020-12-18 03:24] VITALS: BP 136/87; PULSE 66; RESP 16; O2SAT 100
[2020-12-18 04:17] VITALS: BP 147/92; PULSE 62; RESP 16; O2SAT 100
== END 2020-12-18 04:19 | disposition home or self-care (01) ==
PROVIDERS: Emergency Provider Emergency Medicine; PCP Family Medicine
DX: T82.594A Other mechanical complication of infusion catheter, initial encounter (principal); I25.10 Atherosclerotic heart disease of native coronary artery without angina pectoris; E11.9 Type 2 diabetes mellitus without complications; I10 Essential (primary) hypertension; K21.9 Gastro-esophageal reflux disease without esophagitis; Z85.038 Personal history of other malignant neoplasm of large intestine; Z90.49 Acquired absence of other specified parts of digestive tract; Z89.029 Acquired absence of unspecified finger(s); Z95.1 Presence of aortocoronary bypass graft; Z87.891 Personal history of nicotine dependence; Z79.82 Long term (current) use of aspirin; Z79.84 Long term (current) use of oral hypoglycemic drugs
CPT/HCPCS: 36593; 99282

== ENCOUNTER 2020-12-21 09:52 | Outpatient (NON) | payer OTHER, SELFPAY ==
[2020-12-21 10:23] LABS: Hematocrit 36.3 % (37.0-46.0); Hemoglobin 12.5 g/dL (12.4-15.3); Mean Corpuscular HGB Conc 34.4 g/dL (32.0-36.0); Mean Corpuscular Hemoglobin 30.9 pg (27.0-31.0); Mean Corpuscular Volume 89.9 fL (78.0-102.0); Mean Platelet Volume 9.7 fl (8.7-11.0); Platelet Count Result 237 K/mm3 (150-420); Red Blood Count 4.04 M/mm3 (4.70-6.10); Red Cell Distribution Width 11.8 % (11.6-14.4); White Blood Count 5.7 K/mm3 (4.8-10.8)
[2020-12-21 10:35] LABS: Anion Gap 7 mmol/L (8-16); Blood Urea Nitrogen 20 mg/dL (7-18); Calcium 8.8 mg/dL (8.5-10.1); Carbon Dioxide 30 mmol/L (21-32); Chloride 103 mmol/L (98-108); Estimated Glomerular Filt Rate > 60; Glucose 134 mg/dL (70-99); Osmolality Calculated 294 mOsm/kg (285-295); Potassium 3.6 mmol/L (3.5-5.1); Sodium 140 mmol/L (136-145); Vancomycin Trough 9.2 ug/mL (10.0-15.0)
[2020-12-21 10:43] LABS: CRP < 0.5 mg/dL (0.0-0.9)
[2020-12-21 10:56] LABS: Band Neutrophils Percent 0 % (0-6); Basophils Absolute Manual 0.05 K/mm3 (0-0.1); Basophils Percent Manual 1 % (0-1); Eosinophils Absolute Manual 0.79 K/mm3 (0.02-0.5); Eosinophils Percent Manual 14 % (1-6); Lymphocytes Absolute Manual 1.08 K/mm3 (1.1-4.5); Lymphocytes Percent Manual 19 % (18-44); Monocytes Absolute Manual 0.22 K/mm3 (0.1-0.90); Monocytes Percent Manual 4 % (3-9); Neutrophils Absolute Manual 3.53 K/mm3 (1.3-6.7); Neutrophils Percent Manual 62 % (46-73); Platelet Estimate Adequate (Adequate); Total Cells Counted 100
== END 2020-12-21 09:53 | disposition home or self-care (01) ==
LOC: CHSLAB 09:56
PROVIDERS: PCP Family Medicine; Visit Provider Internal Medicine Infectious Disease
DX: L03.115 Cellulitis of right lower limb (principal)
CPT/HCPCS: 36415; 80048; 80202; 85025; 86140

== ENCOUNTER 2020-12-24 09:47 | Outpatient (NON) | payer OTHER, SELFPAY ==
[2020-12-24 10:07] LABS: Hematocrit 38.7 % (37.0-46.0); Hemoglobin 13.3 g/dL (12.4-15.3); Mean Corpuscular HGB Conc 34.4 g/dL (32.0-36.0); Mean Corpuscular Volume 90.2 fL (78.0-102.0); Mean Platelet Volume 10.4 fl (8.7-11.0); Platelet Count Result 202 K/mm3 (150-420); Red Blood Count 4.29 M/mm3 (4.70-6.10); Red Cell Distribution Width 11.9 % (11.6-14.4); White Blood Count 6.3 K/mm3 (4.8-10.8)
[2020-12-24 10:31] LABS: Anion Gap 5 mmol/L (8-16); Blood Urea Nitrogen 20 mg/dL (7-18); Carbon Dioxide 33 mmol/L (21-32); Chloride 101 mmol/L (98-108); Estimated Glomerular Filt Rate > 60; Glucose 134 mg/dL (70-99); Osmolality Calculated 292 mOsm/kg (285-295); Potassium 3.9 mmol/L (3.5-5.1); Sodium 139 mmol/L (136-145)
[2020-12-24 10:32] LABS: CRP < 0.2 mg/dL (0.0-0.9)
[2020-12-24 10:35] LABS: Band Neutrophils Percent 0 % (0-6); Basophils Absolute Manual 0.06 K/mm3 (0-0.1); Basophils Percent Manual 1 % (0-1); Eosinophils Absolute Manual 1.44 K/mm3 (0.02-0.5); Eosinophils Percent Manual 23 % (1-6); Lymphocytes Absolute Manual 1.38 K/mm3 (1.1-4.5); Lymphocytes Percent Manual 22 % (18-44); Monocytes Absolute Manual 0.44 K/mm3 (0.1-0.90); Monocytes Percent Manual 7 % (3-9); Neutrophils Absolute Manual 2.96 K/mm3 (1.3-6.7); Neutrophils Percent Manual 47 % (46-73); Platelet Estimate Adequate (Adequate); Total Cells Counted 100
== END 2020-12-24 09:48 | disposition home or self-care (01) ==
PROVIDERS: Visit Provider Internal Medicine Infectious Disease
DX: S91.331A Puncture wound without foreign body, right foot, initial encounter (principal); L03.115 Cellulitis of right lower limb
CPT/HCPCS: 36415; 80048; 85025; 86140

== ENCOUNTER 2021-01-12 13:20 | Inpatient (IN) | payer OTHER, MEDICARE, SELFPAY ==
--- NOTE | ~2021-01-12 | XR_ITS ---
XR foot RT standing 2V DATE: 01/12/2021 11:22 INDICATION: Nail went through foot and second metatarsophalangeal area 6 weeks ago. Infection. TECHNIQUE: Weightbearing AP and lateral views COMPARISON: 11/29/2020 right foot 11/30/2020 MR foot 12/04/2020 right foot FINDINGS: There is soft tissue swelling in the region of the third and fourth digits. The subcutaneou s emphysema noted on recent radiographs has resolved. There is diminished density along the cortex of the lateral aspect of th of the proximal phalanx of t he third digit which may indicate osteomyelitis. There is also some subtle diminished in density of t he medial base of the proximal phalanx of the fourth digit. Consider 3 phase radionuclide bone scan t o evaluate for early osteomyelitis. Again noted is a chronic erosion of the medial aspect of the head of the proximal phalanx, possibly s econdary to gout. No radiopaque foreign body. No fracture or dislocation, periosteal reaction or bone destruction is no jadiel otherwise. Prominent plantar and posterior calcaneal enthesopathy. Os tibiale externum, normal variant. IMPRESSION: Soft tissue swelling at the third and fourth digits Subtle diminished bone density at the lateral base of the proximal phalanx of the third digit and med ial base of the proximal phalanx of the fourth digit, possibly early changes of osteomyelitis. Consid er 3 phase radionuclide bone scan Reviewed, dictated and finalized at location B. IMPRESSION: Soft tissue swelling at the third and fourth digits Subtle diminished bone density at the lateral base of the proximal phalanx of t he third digit and medial base of the proximal phalanx of the fourth digit, pos sibly early changes of osteomyelitis. Consider 3 phase radionuclide bone scan
--- NOTE | ~2021-01-12 | XR_ITS ---
EXAMINATION: XR chest PICC line EXAM DATE: 01/15/2021 12:08 INDICATION: PICC placement . TECHNIQUE: Portable AP frontal chest x-ray was obtained. Comparison is made to prior examination from 12/01/2020. FINDINGS: There is a left-sided PICC line with tip projecting over the cavoatrial junction. Sternoto my wires are present without findings to suggest sternal dehiscence. Borderline cardiomegaly and pulm onary vascular congestion. No confluent consolidation, pneumothorax or pleural effusion suspected. Th ere are mild bony degenerative changes. IMPRESSION: Congestive changes. PICC line in position. Reviewed, dictated and finalized at location A.
--- NOTE | ~2021-01-12 | US_ITS ---
EXAMINATION: US arterial ankle brachial ind DATE: 01/12/2021 11:45 INDICATION: Nonhealing right foot infection. Ulcerations, atrophic changes. Diabetes. TECHNIQUE: Segmental pressures and plethysmographic and Doppler waveforms of the brachial and lower e xtremity arteries were obtained. COMPARISON: 01/12/2021 right foot FINDINGS: Right and left brachial artery pressures of 138 mm Hg and 132 mm Hg, respectively, are concordant (no rmal difference <= 30 mmHg). The right ankle-brachial index (RANDAL) is 1.33 Right (normal >= 0.9-1.0). The right great toe-brachial index (TBI) is 0.96 (normal >= 0.65). Arteria l Doppler waveforms are biphasic. The left RANDAL is 1.43. The left TBI is 1.36. Arterial Doppler waveforms are biphasic. IMPRESSION: Right and left RANDAL of 1.33 and 1.43 Right and left TBI of 0.96 and 1.36 Biphasic arterial waveforms at the posterior tibial and dorsalis pedis arteries bilaterally Reviewed, dictated and finalized at Location A. Reviewed, dictated and finalized at location B.
--- NOTE | ~2021-01-12 | MR_ITS ---
EXAMINATION: MR foot RT wo/w con DATE: 01/12/2021 14:21 INDICATION: Deep right foot ulceration with possible abscess. TECHNIQUE: Magnetic resonance imaging (MRI) of the right fore/mid foot was performed without and with 18 mL Multihance intravenous contrast. Sequences included axial, sagittal and coronal T1-weighted FS E and T2-weighted FS FSE, axial T1-weighted FS FSE and postcontrast axial and coronal T1-weighted FS FSE. COMPARISON: Right foot radiographs dated 01/12/2021 and MRI dated 11/30/2020 FINDINGS: Bone alignment is normal. There is marrow edema in the right third and fourth proximal phalanges. In the third proximal phalanx there is corresponding geographic loss of T1 marrow fat signal consistent with osteomyelitis extending from the base to the neck of the phalanx. No radiographic loss of T1 fat signal at the fourth proximal phalanx which remains equivocal for reactive edema versus early osteom yelitis. Bone marrow signal is otherwise normal throughout. No fracture or other pathologic marrow re placing process. Joint spaces are normal. No joint effusion. There is prominent soft tissue edema and enhancement centered at the space between the third and four th metatarsophalangeal joints. Small focus of absent signal likely related to a gas bubble is present at the margin of a penetrating ulcer at the plantar aspect of the foot positioned between the base o f the third and fourth proximal phalanges. There is a region of absent soft tissue enhancement surrou nding the focus of gas without corresponding homogeneous fluid signal to suggest abscess in this more likely related to necrosis of the plantar fat at this location. There is an additional tiny shallow penetrating wound at the bulging dorsal aspect of the soft tissues between the third and fourth toes potentially related to attempted prior debridement/abscess drainage. The Lisfranc ligament complex as well as the collateral ligament complex at the metatarsophalangeal and interphalangeal joints are no rmal. Visualized portions of the flexor and extensor tendons are normal. IMPRESSION: 1. Nonenhancing likely soft tissue necrosis of the plantar fat pad surrounding a small focus of gas d eep to the plantar ulceration situated between the third and fourth metatarsophalangeal joints. No as sociated homogeneous fluid collection to suggest an abscess. 2. Osteomyelitis involving the third proximal phalanx with marrow signal changes consistent with eith er reactive edema versus very early osteomyelitis at the fourth proximal phalanx. Reviewed, dictated and finalized at location A. IMPRESSION: 1. Nonenhancing likely soft tissue necrosis of the plantar fat pad surrounding a small focus of gas deep to the plantar ulceration situated between the third and fourth metatarsophalangeal joints. No associated homogeneous fluid collecti on to suggest an abscess. 2. Osteomyelitis involving the third proximal phalanx with marrow signal change s consistent with either reactive edema versus very early osteomyelitis at the fourth proximal phalanx.
[2021-01-12 10:55] VITALS: BMI 24.4
[2021-01-12 12:10] VITALS: BP 150/85; PULSE 74; RESP 16; TEMP 36.2; O2SAT 100
[2021-01-12 12:11] VITALS: BMI 24.4
--- NOTE | 2021-01-12 12:56 | PC.NURSE ---
This patient, Ramirez Orantes Jr., was admitted to Medical Room 261-01. Patient/family oriented to hospital policies and general routines including ID bracelet, bed and alarms, visiting hours, pain management, procedures, bathroom and other care routines, personal items, smoking policy, room service/diet, and visiting hours. Information on how to activate the Rapid Response Team has been discussed. Patient/Family are encouraged to report perceived risks to care and to ask questions if they do not understand what they are told or what they should do.
--- NOTE | 2021-01-12 13:26 | PM.IMHP ---
H&P: HPI History of Present Illness Date/Time: 01/12/21 13:26 this is a 65-year-old male patient who has a history of diabetes and coronary artery disease. This patient was recently discharged from here approximately 4.5 weeks ago for diabetic foot wound and had the right foot debrided. The patient had his debridement last time by Dr. cadet and now his care has been turned over to Dr. fuller. The patient was discharged last time on 4 weeks of IV antibiotics and the patient stated that he received antibiotic 6 times a day. He did have a PICC line but that is now removed. The patient came to the [facility] today for re-evaluation the right plantar foot wound and now has a new onset of ulceration between the last 3rd and 4th toes. The patient was sent to [facility] from outpatient clinic. Dr. Joss Marie nurse practitioner has seen the patient in the hospital today. Wound cultures were obtained today. His last micro wound specimen was on 12/05/2020 which did not produce any organisms. Dr. Lau has been consulted as well. The patient is being admitted to inpatient services on the date of service of 01/12/2021 Chief Complaint: Right foot diabetic ulcer Review of Systems Review of Systems: All systems reviewed & are unremarkable except as noted in HPI and below Constitutional: Constitutional: Reports as per HPI and Reports no additional constitutional complaints Eyes: Eyes: Reports as per HPI and Reports no additional eye complaints ENT: Reports system reviewed and no additional complaints, except as documented and Reports Normal hearing present Cardiovascular: Cardiovascular: Reports no additional cardiovascular complaints Respiratory: Respiratory: Reports no additional respiratory complaints and Reports no additional respiratory complaints Gastrointestinal: Gastrointestinal: Reports as per HPI and Reports no additional gastrointestinal complaints Musculoskeletal: Musculoskeletal: Reports no additional musculoskeletal complaints Integumentary/Breasts: Skin/Breast: Reports system reviewed and no additional complaints, except as docu and Reports as per HPI Neurologic: Reports system reviewed and no additional complaints, except as documented, Reports as per HPI and Reports Normal hearing present Psychiatric: Psychiatric: Reports no additional psychiatric complaints and Reports as per HPI Endocrine: Endocrine: Reports no additional endocrine complaints Hematologic/Lymphatic: Hematologic/Lymphatic: Reports no additional hematologic/lymphatic complaints Allergic/Immunologic: Allergic/Immunologic: Reports no additional allergic/immunologic complaints [facility] Past Medical History Medical History CAD (coronary artery disease) Status post CABG Cancer of transverse colon Status post right hemicolectomy Carpal tunnel syndrome Diabetes GERD (gastroesophageal reflux disease) HTN (hypertension) Surgical History Surgical History (Updated 01/12/21 @ 13:43 by Yolanda Varela NP) Finger amputee After crushing injury to right pointer finger H/O hernia repair 2018 H/O right knee surgery Hiatal hernia with GERD 1989 History of carpal tunnel release Right hand History of hand surgery History of right hemicolectomy with ileocolic anastomsis in 2019 Hx of CABG Family History Family History Sibling Family history of malignant neoplasm Father Family history of chronic obstructive pulmonary disease Hypertension Heart disease Mother Hypertension Cancer Sibling Cancer Sibling Cancer Sibling Cancer Social History Social History (Updated 01/12/21 @ 13:46 by Yolanda Varela NP) Social History: The patient is and lives with his . He has 4 children. 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 The patient is a full code. The patient is a former smoker. He does not us
[2021-01-12 15:34] LABS: CRP 1.5 mg/dL (<1.0); Estimated CRCL calculation 113 ml/min; Estimated Glomerular Filt Rate > 60; Magnesium 1.8 mg/dL (1.6-2.3)
[2021-01-12 15:38] LABS: Lactic Acid Reflex 0.7 mmol/L (0.7-2.1)
[2021-01-12 15:57] LABS: Erythrocyte Sedimentation Rate 36 mm/hr (0-20)
[2021-01-12 16:00] VITALS: BP 150/85; PULSE 74; RESP 16; TEMP 36.2; O2SAT 100
[2021-01-12 16:12] LABS: Hemoglobin A1C 10.6 % (<5.7)
[2021-01-12 18:03] LABS: Glucose Point of Care 236 mg/dl (65-105)
[2021-01-12] MEDS: INSULIN ASPART (*BKC) 100 UNITS/ML SUB-Q (18:15)
[2021-01-12 20:00] VITALS: BP 138/78; PULSE 73; RESP 20; TEMP 36.6; O2SAT 100
[2021-01-12] MEDS: INSULIN GLARGINE (*BKC) 100 UNITS/ML 26 UNITS SUB-Q (20:38)
[2021-01-12] MEDS: ACETAMINOPHEN 325 MG TABLET 650 MG PO (21:39)
[2021-01-12 21:44] LABS: Glucose Point of Care 195 mg/dl (65-105)
[2021-01-13] VITALS (7 sets, daily range): BP systolic 115–164; BP diastolic 62–83; PULSE 68–83; RESP 18–20; TEMP 35.8–36.8; O2SAT 99–100
[2021-01-13 06:05] LABS: Basophils Percent Auto 0.3 % (0.2-1.2); Eosinophils Absolute Auto 0.1 K/mm3 (0-0.3); Eosinophils Percent Auto 0.8 % (0-4.4); Hematocrit 37.9 % (42.0-52.0); Immature Granulocyte Absolute 0.03 K/mm3 (0.00-0.031); Immature Granulocyte Percent A 0.5 % (0-0.5); Lymphocytes Absolute Auto 0.64 K/mm3 (0.9-3.2); Lymphocytes Percent Auto 9.9 % (18.3-44.2); Mean Corpuscular HGB Conc 34.3 g/dl (32-36); Mean Corpuscular Volume 90.2 fl (80-100); Mean Platelet Volume 9.5 fl (7.4-10.4); Monocytes Absolute Auto 0.5 K/mm3 (0.1-0.6); Monocytes Percent Auto 7.6 % (2.6-8.5); Neutrophils Absolute Auto 5.2 K/mm3 (1.3-6.7); Neutrophils Percent Auto 80.9 % (45.5-73.1); Platelet Count Result 224 k/mm3 (150-375); Red Cell Distribution Width 11.9 % (11.5-14.5); White Blood Count 6.4 K/mm3 (4.5-10.0)
[2021-01-13 06:22] LABS: Alanine Aminotransferase 16 U/L (4-50); Albumin Level 3.9 g/dL (3.5-5.1); Alkaline Phosphatase 65 U/L (38-126); Anion Gap 7 mmol/L (8-16); Aspartate Amino Transferase 26 U/L (17-59); Blood Urea Nitrogen 15 mg/dL (9-20); Calcium 8.9 mg/dL (8.4-10.2); Carbon Dioxide 30 mmol/L (22-30); Chloride 100 mmol/L (98-107); Estimated CRCL calculation 133 ml/min; Estimated Glomerular Filt Rate > 60; Glucose 66 mg/dL (65-110); Lactate Dehydrogenase 346 U/L (313-618); Magnesium 1.8 mg/dL (1.6-2.3); Potassium 4.1 mmol/L (3.4-5.0); Sodium 137 mmol/L (137-145)
[2021-01-13 07:22] LABS: Thyroid Stimulating Hormone Reflex 0.752 uIU/mL (0.465-4.68)
[2021-01-13 07:37] LABS: Glucose Point of Care 96 mg/dl (65-105)
[2021-01-13] MEDS: ASPIRIN 81 MG ENTERIC TABLET PO (09:13)
[2021-01-13 11:50] LABS: Glucose Point of Care 167 mg/dl (65-105)
--- NOTE | 2021-01-13 13:36 | PM.CNOR ---
Assessment and Plan Assessment and plan (1) Cellulitis of foot, right: Code(s): L03.115 - Cellulitis of right lower limb Status: Acute Assessment and Plan: 65-year-old male re-evaluated in the [place] wound clinic for worsening wound care. He has a worsening of the wound. MRI shows soft tissue infection and possible osteomyelitis of the base of the 3rd toe proximal phalanx. Does not appear to be any septic arthritis. Blood flow studies show adequate arterial blood flow to both feet. Patient admitted and started on intravenous antibiotics. Cultures pending showing g stain with g negative rods and gram-positive cocci. Discussed nonoperative and operative treatment options with the patient. Risks and benefits of each as well as alternatives were reviewed. All of the patient's questions were answered. The risks of surgery reviewed including but not limited to: Neurovascular damage, wound complication, infection, blood clot, pulmonary embolus, stroke, myocardial infarction, and anesthetic risks up to and including . Continued pain and possible dysfunction were explained. Specific risks of the procedure including later recurrence of deformity. No guarantees were offered. If complications occur, the patient understands the need for further treatment, possible further surgery. Patient verbalizes understanding and wishes to proceed. PLAN: Debridement right diabetic foot and excision of osteomyelitis. (2) Diabetes: Qualifiers: Diabetes mellitus type: type 2 Diabetes mellitus group home insulin use: with group home use Diabetes mellitus complication status: with neurologic complications Diabetes mellitus complication detail: with polyneuropathy Qualified Code(s): E11.42 - Type 2 diabetes mellitus with diabetic polyneuropathy; Z79.4 - FPC (current) use of insulin Code(s): E11.9 - Type 2 diabetes mellitus without complications Status: Acute Assessment and Plan: Previous hemoglobin A1c was 13. Close diabetic monitoring in the inpatient setting. (3) Puncture wound of foot, right: Qualifiers: Encounter type: subsequent encounter Qualified Code(s): S91.331D - Puncture wound without foreign body, right foot, subsequent encounter Code(s): S91.331A - Puncture wound without foreign body, right foot, initial encounter Status: Acute History of Present Illness HPI Consult date: 01/13/21 Requesting physician: Yolanda Varela NP Chief complaint: rt foot cellulitis Narrative: 65-year-old gentleman known to the Orthopedic service for right foot puncture wound, stepped on nail approximately 6 weeks ago. OR debridement at that time. Finished his course of IV antibiotics. Cultures done at that time negative. Return to the [facility] wound clinic with new ulceration in the webspace between the 3rd and 4th toe and swelling on the dorsum of the foot. No healing of the original puncture site noted. Patient admitted for workup/ further care and to restart IV antibiotics. Review of Systems Constitutional: Constitutional: Denies fever(s) Eyes: Eyes: Denies blurry vision ENT: Reports Normal hearing present Cardiovascular: Cardiovascular: Denies chest pain and Denies dyspnea Respiratory: Respiratory: Denies dyspnea and Denies wheezing Gastrointestinal: Gastrointestinal: Denies abdominal pain Genitourinary: Genitourinary: Denies urinary urgency Musculoskeletal: Musculoskeletal: Reports as per HPI and Reports numbness ( Toes both feet) Integumentary/Breasts: Skin/Breast: Reports wounds ( right plantar foot after stepping on nail) Neurologic: Reports Normal hearing present, Denies behavioral changes, Denies confusion and Denies convulsions Psychiatric: Psychiatric: Denies behavioral changes, Denies confusion and Denies hallucinations Endocrine: Endocrine: Denies heat intolerance Hematologic/Lymphatic: Hematologic/Lymphatic: Denies easy bleeding Allergi
--- NOTE | 2021-01-13 14:48 | PM.IMPN ---
Progress Note: A&P Assessment and Plan (1) Cellulitis of foot, right: Code(s): L03.115 - Cellulitis of right lower limb Status: Acute Assessment and Plan: -Plan for debridement right diabetic foot and excision of osteomyelitis. -Daily local wound care -Continue imipenem and vancomycin. (2) HTN (hypertension): Code(s): I10 - Essential (primary) hypertension Status: Acute Assessment and Plan: Start lisinopril 10 mg PO daily Expect 30% increase creatinine after initiation of lisinopril. P.r.n. hydralazine. (3) CAD (coronary artery disease): Code(s): I25.10 - Atherosclerotic heart disease of [place] coronary artery without angina pectoris Status: Acute Assessment and Plan: The patient had a 1 vessel CABG. Continue with his home medications. Hold ASA (4) GERD (gastroesophageal reflux disease): Code(s): K21.9 - Gastro-esophageal reflux disease without esophagitis Status: Acute Assessment and Plan: Continue with patient's home medications. (5) Diabetes: Qualifiers: Diabetes mellitus type: type 2 Diabetes mellitus manager intermediate insulin use: with usp use Diabetes mellitus complication status: with neurologic complications Diabetes mellitus complication detail: with polyneuropathy Qualified Code(s): E11.42 - Type 2 diabetes mellitus with diabetic polyneuropathy; Z79.4 - manager intermediate (current) use of insulin Code(s): E11.9 - Type 2 diabetes mellitus without complications Status: Acute Assessment and Plan: Sliding scale insulin and continue with his Lantus. Patient's A1c last month was noted to be 13.0 and has been at that level for a couple years. Follow up with conveyor console operator as an outpatient Follow up with wood grainer as an outpatient. Subjective Date/time seen: 01/13/21 14:48 This is a 65-year-old male patient who has a history of diabetes and coronary artery disease, discharged from [facility] approximately 5 weeks 4 days ago for diabetic foot wound, s/p debridement by Dr. Hamilton, now cared by Dr. Calvo. The patient was discharged last time with 4 weeks of IV antibiotics trough a PICC line, now removed. He was referred from [facility] after evaluation of the right plantar wound which shows new onset of ulceration between the last 3rd and 4th toes. ID, surgery are on consult. The patient is being admitted to inpatient services on the date of service of 01/12/2021. S: Patient is examined at the bedside. No complaints. There is no pain. Review of Systems Review of Systems: All systems reviewed & are unremarkable except as noted in HPI and below Constitutional: Constitutional: Denies body ache(s), Denies chills and Denies weakness Eyes: Eyes: Reports as per HPI and Reports no additional eye complaints ENT: Reports system reviewed and no additional complaints, except as documented Cardiovascular: Cardiovascular: Reports no additional cardiovascular complaints, Denies chest pain and Denies pedal edema Respiratory: Respiratory: Reports no additional respiratory complaints, Denies cough and Denies dyspnea on exertion Gastrointestinal: Gastrointestinal: Reports no additional gastrointestinal complaints, Denies abdominal pain, Denies diarrhea and Denies vomiting Genitourinary: Genitourinary: Reports no additional male genitourinary complaints Musculoskeletal: Musculoskeletal: Reports no additional musculoskeletal complaints Integumentary/Breasts: Skin/Breast: Reports wounds Comments: Reports wounds ( right plantar foot after stepping on nail) Neurologic: Reports numbness Comments: bilateral lower extremity numbness. Psychiatric: Psychiatric: Reports no additional psychiatric complaints and Reports as per HPI Exam Const: General: cooperative, healthy appearing, comfortable, no acute distress, well developed, alert, awake and Physically active Nutritional Appearance: average body habitus and well nourish
--- NOTE | 2021-01-13 15:17 | WPDINFPN2 ---
Progress Note: A&P Assessment and Plan (1) Puncture wound of foot, right: Qualifiers: Encounter type: subsequent encounter Qualified Code(s): S91.331D - Puncture wound without foreign body, right foot, subsequent encounter Code(s): S91.331A - Puncture wound without foreign body, right foot, initial encounter Status: Acute Assessment and Plan: puncture wound R foot this past summer, now with probable OM REC To OR tomorrow. Current Rx appropriate, request intraoperative cultures. 6 weeks IV therapy will likely be needed. Subjective Date/time seen: 01/13/21 15:17 Objective Data Vital Signs Vital Signs: Vital Signs - 24 hr 01/12/21 16:00 01/12/21 20:00 01/13/21 00:00 Temperature 36.2 C L 36.6 C 35.9 C L Pulse Rate 74 73 73 Respiratory Rate 16 20 20 Blood Pressure 150/85 H 138/78 124/69 Pulse Oximetry 100 100 99 01/13/21 04:00 01/13/21 07:40 01/13/21 12:05 Temperature 36.0 C L 35.8 C L 36.2 C L Pulse Rate 68 71 81 Respiratory Rate 20 18 18 Blood Pressure 115/62 129/77 135/78 Pulse Oximetry 99 100 100 Intake/Output Intake/Output: Intake & Output 01/10/21 01/11/21 01/12/21 01/13/21 23:59 23:59 23:59 23:59 Intake Total 1680 990 Output Total 600 600 Balance 1080 390 Meds/Results Medications: Active Medications Generic Name Dose Route Start Last Admin Trade Name Freq PRN Reason Stop Dose Admin Acetaminophen 650 mg 01/12/21 17:57 01/12/21 21:39 Acetaminophen 325 Mg Tablet PO 650 mg Q6H PRN Administration Mild Pain (1-3) Or Fever Aspirin 81 mg 01/13/21 09:00 01/13/21 09:13 Aspirin 81 Mg Enteric Tablet PO 81 mg DAILY RANDA Administration Dextrose 12.5 gm 01/12/21 13:39 Dextrose 50% 25 Gm/50 Ml Syringe IV PUSH PRN PRN Hypoglycemia Protocol Glucagon 1 mg 01/12/21 13:39 Glucagon For Inj 1 Mg Vial IM PRN PRN Hypoglycemia Protocol Glucose 15 gm 01/12/21 13:39 Glucose Oral Gel 15 Gm Of Glucse In 37.5 Gm Tube PO PRN PRN Hypoglycemia Protocol Hydralazine HCl 10 mg 01/12/21 13:31 Hydralazine Hcl 20 Mg/Ml Vial IV PUSH Q8H PRN Blood Pressure - High Dextrose 1,000 mls @ 100 mls/hr 01/12/21 13:39 Dextrose 5% 1,000 Ml IVPB PRN PRN Hypoglycemia Protocol Imipenem/Cilastatin Sodium 500 mg in 100 mls @ 300 mls/hr 01/12/21 21:00 01/13/21 09:43 Primaxin 500 Mg/D5w 100 Ml IVPB Infused Q6H RANDA Infusion Vancomycin HCl 1,500 mg in 500 mls @ 333.333 mls/hr 01/12/21 17:00 01/13/21 08:10 Vancomycin 1,500 Mg/D5w 500 Ml IVPB Infused Q12H RANDA Infusion Lactated Ringer's 1,000 mls @ 30 mls/hr 01/13/21 13:35 Lr - Lactated Ringers Iv IV CONT .Q24H [facility] Insulin Aspart 3 - 6 units 01/12/21 17:00 01/13/21 14:15 Insulin Aspart (*Bkc) 100 Units/Ml SUB-Q Not Given TIDWM [facility] Protocol Insulin Glargine 26 units 01/12/21 21:00 01/12/21 20:38 Insulin Glargine (*Bkc) 100 Units/Ml SUB-Q 26 units HS RANDA Administration Ondansetron HCl 4 mg 01/12/21 13:28 Ondansetron Inj 4 Mg/2 Ml Vial IV PUSH Q6H PRN Nausea And Vomiting Silver Nitrate 1 each 01/13/21 09:00 01/13/21 09:13 Aquacel Ag Advantage Bandage (*Bkc) TOPICAL 1 each DAILY RANDA Administration Radiology Results: ITS Impressions Foot X-Ray 01/12/21 11:42 IMPRESSION: Soft tissue swelling at the third and fourth digits Subtle diminished bone density at the lateral base of the proximal phalanx of the third digit and medial base of the proximal phalanx of the fourth digit, possibly early changes of osteomyelitis. Consider 3 phase radionuclide bone scan Ankle Brachial Index 01/12/21 11:51 IMPRESSION: Right and left RANDAL of 1.33 and 1.43 Right and left TBI of 0.96 and 1.36 Biphasic arterial waveforms at the posterior tibial and dorsalis pedis arteries bilaterally Foot MRI 01/12/21 14:38 IMPRESSION: 1. Nonenhancing like
[2021-01-13 17:15] LABS: Glucose Point of Care 252 mg/dl (65-105)
[2021-01-13] MEDS: INSULIN ASPART (*BKC) 100 UNITS/ML SUB-Q (17:27)
--- NOTE | 2021-01-13 20:49 | CONS_ITS ---
DATE OF CONSULTATION: 01/13/2021 REASON FOR CONSULTATION: Nonhealing ulcer. HISTORY OF PRESENT ILLNESS: He had a puncture wound earlier this summer and developed a subcutaneous abscess as a result of multiple evaluations that indicated no osteomyelitis. He was given 2 weeks of imipenem and vancomycin. However, since then, he has had persistent open wound over the interspace between 3rd and 4th toes, both plantar and dorsal. Due to this fact, [facility] Yesterday, he has been given IV antibiotics in the form of imipenem and vancomycin. Consultation requested. He has no pain. No fever, chills, sweats. No nausea, vomiting. Previous blood cultures in November were all no growth. Wound culture from 12/05, also no growth. I suspected those were falsely negative due to pre-existing antibiotics. ALLERGIES: NONE KNOWN. PRESENT MEDICATIONS: As above, no immunosuppressants. HABITS: Ex-smoker. No alcohol. PAST MEDICAL HISTORY: Diabetes mellitus, not well controlled previously, CAD, colon cancer, carpal tunnel, GERD, hypertension, CABG, hiatal hernia surgery, and surgery to the right knee. REVIEW OF SYSTEMS: 5-point review otherwise negative. SOCIAL HISTORY: See record. FAMILY HISTORY: Not pertinent to his present illness. PHYSICAL EXAMINATION: GENERAL: Middle-aged male, who appears his actual age. No acute distress, afebrile. VITAL SIGNS: 124/76, 80, 20, and 100%. SKIN: Warm and dry. No rashes. EENT: Conjunctivae appear clear. Mucous membranes well hydrated. LUNGS: Clear to auscultation. CARDIAC: Regular rate and rhythm. No murmur, gallop. Dorsalis pedis pulses 1+ and equal. ABDOMEN: Nontender. No masses. No organomegaly. EXTREMITIES: Left foot is bland. On the right, he has the aforementioned ulcerations. There is no odor or purulence. He has mild surrounding erythema. No lymphangitis. LABORATORY DATA: Blood cultures once again, no growth so far. His white blood cell count 6.4 on 12/24 as well. Hemoglobin 13.0, platelets are 224, has a minimal left shift on differential. Chemistry panel is normal other than a glucose of 167. A1c repeated in 10.6%. His CRP is 1.5. RADIOLOGY: MRI of the right foot suggests fluid collection, possible abscess along with early periostitis or osteomyelitis in the 4th metatarsal head. ASSESSMENT: 1. Recent foot abscess, treated for the same with intensive IV antibiotics due to the potential for osteomyelitis. Unfortunately, it appears he has developed the same. 2. Diabetes mellitus, not well controlled. RECOMMENDATIONS: 1. Surgery planned for tomorrow. I will request intraoperative cultures and histopathology. 2. Anticipate a prolonged IV antibiotics for probably 6 weeks. 3. Glycemic control. Thank you for asking me to see him. EARL CHAVIRA M.D. OR RN OR RN D I MT: Angelina
[2021-01-13] MEDS: INSULIN GLARGINE (*BKC) 100 UNITS/ML 26 UNITS SUB-Q (21:15)
[2021-01-13 22:21] LABS: Glucose Point of Care 157 mg/dl (65-105)
[2021-01-14] VITALS (13 sets, daily range): BP systolic 119–147; BP diastolic 68–87; PULSE 66–78; RESP 11–20; TEMP 35.9–36.4; O2SAT 98–100
[2021-01-14 05:16] LABS: Estimated CRCL calculation 133 ml/min; Estimated Glomerular Filt Rate > 60
[2021-01-14 05:41] LABS: Vancomycin Trough 8.5 ug/mL (10.0-20.0)
[2021-01-14 07:53] LABS: Glucose Point of Care 161 mg/dl (65-105)
[2021-01-14 08:15] LABS: Glucose Point of Care 157 mg/dl (65-105)
--- NOTE | 2021-01-14 08:57 | PM.IMPN ---
Progress Note: A&P Assessment and Plan (1) Cellulitis of foot, right: Code(s): L03.115 - Cellulitis of right lower limb Status: Acute Assessment and Plan: -Plan for debridement right diabetic foot and excision of osteomyelitis. -Daily local wound care -Continue imipenem and vancomycin. (2) HTN (hypertension): Code(s): I10 - Essential (primary) hypertension Status: Acute Assessment and Plan: Continue lisinopril 10 mg PO daily Expect 30% increase creatinine after initiation of lisinopril. P.r.n. hydralazine. (3) CAD (coronary artery disease): Code(s): I25.10 - Atherosclerotic heart disease of [place] coronary artery without angina pectoris Status: Acute Assessment and Plan: The patient had a 1 vessel CABG. Continue with his home medications. Hold ASA (4) GERD (gastroesophageal reflux disease): Code(s): K21.9 - Gastro-esophageal reflux disease without esophagitis Status: Acute Assessment and Plan: Continue with patient's home medications. (5) Diabetes: Qualifiers: Diabetes mellitus type: type 2 Diabetes mellitus intermediate insulin use: with intermediate use Diabetes mellitus complication status: with neurologic complications Diabetes mellitus complication detail: with polyneuropathy Qualified Code(s): E11.42 - Type 2 diabetes mellitus with diabetic polyneuropathy; Z79.4 - jail (current) use of insulin Code(s): E11.9 - Type 2 diabetes mellitus without complications Status: Acute Assessment and Plan: Sliding scale insulin and continue with his Lantus. Patient's A1c last month was noted to be 13.0 and has been at that level for a couple years. Follow up with balance bridge inspector as an outpatient Follow up with research & insights executive as an outpatient. Subjective Date/time seen: 01/14/2021 08:57 Interval history: Patient is currently awaiting his right foot debridement. He has no new complaints and heis in good spirits. Review of Systems Review of Systems: All systems reviewed & are unremarkable except as noted in HPI and below Constitutional: Constitutional: Reports as per HPI, Reports no additional constitutional complaints, Denies body ache(s), Denies chills and Denies weakness Eyes: Eyes: Reports as per HPI and Reports no additional eye complaints ENT: Reports system reviewed and no additional complaints, except as documented and Reports Normal hearing present Cardiovascular: Cardiovascular: Reports no additional cardiovascular complaints, Denies chest pain, Denies pedal edema and Denies dyspnea on exertion Respiratory: Respiratory: Reports no additional respiratory complaints, Reports no additional respiratory complaints, Denies cough and Denies dyspnea on exertion Gastrointestinal: Gastrointestinal: Reports as per HPI, Reports no additional gastrointestinal complaints, Denies abdominal pain, Denies diarrhea and Denies vomiting Genitourinary: Genitourinary: Reports no additional male genitourinary complaints Musculoskeletal: Musculoskeletal: Reports no additional musculoskeletal complaints and Reports numbness Integumentary/Breasts: Skin/Breast: Reports system reviewed and no additional complaints, except as docu, Reports as per HPI and Reports wounds Neurologic: Reports system reviewed and no additional complaints, except as documented, Reports as per HPI, Reports Normal hearing present, Reports numbness and Denies weakness Psychiatric: Psychiatric: Reports no additional psychiatric complaints and Reports as per HPI Endocrine: Endocrine: Reports no additional endocrine complaints Hematologic/Lymphatic: Hematologic/Lymphatic: Reports no additional hematologic/lymphatic complaints Allergic/Immunologic: Allergic/Immunologic: Reports no additional allergic/immunologic complaints Exam Const: General: cooperative, healthy appearing, comfortable, no acute distress, well developed, alert, awake and Physically active Nutri
[2021-01-14 11:59] LABS: Glucose Point of Care 120 mg/dl (65-105)
[2021-01-14] MEDS: LACTATED RINGERS 1,000 ML 30 ML IV CONT ×2 (12:10→14:15)
--- NOTE | 2021-01-14 12:13 | WPDHPUPDATE1 ---
History and Physical Update Update Date/Time: 01/14/21 12:13 History and Physical has been reviewed, including an updated exam of the patient. There are NO changes in the patient's condition. Risks, benefits, and alternatives have been discussed and questions answered. Patient agrees to proceed with procedure.
--- NOTE | 2021-01-14 12:27 | WPDANESEPPF ---
Anes - Initial Pre Proc Eval Procedure: Operation Date: 01/14/21 13:00 Proposed Procedures p Debridement Right Diabetic Foot Ulcer - Blair Coreas MD Date/Time: 01/14/21 12:27 Surgeon: Melba Ramsay MD Pre Op Diagnosis: rt foot cellulitis Patient Data Age: 65 Gender: M Height: 1.83 m Weight: 81.8 kg Last Vital Signs Temp 96.8 F L 01/14/21 08:00 Pulse 72 01/14/21 08:00 Resp 16 01/14/21 08:00 BP 144/81 H 01/14/21 08:00 Pulse Ox 100 01/14/21 08:00 Allergies Allergy/AdvReac Type Severity Reaction Status Date / Time No Known Allergies Allergy Verified 01/14/21 12:09 Home Medications Medication Instructions Recorded Confirmed Type aspirin 81 mg tablet,delayed 81 mg PO DAILY 09/24/19 01/12/21 History release acetaminophen [Mapap 650 mg PO Q6H PRN #60 tablet 12/02/20 01/12/21 Rx (acetaminophen)] metformin 500 mg PO BID #60 tablet 12/07/20 01/12/21 Rx insulin glargine [Lantus Solostar 26 unit SUBCUT HS 01/12/21 01/12/21 History U-100 Insulin] Laboratory Tests 01/13/21 01/13/21 01/14/21 17:07 21:14 04:21 Creatinine Estim Creat Clear Calc Estimated GFR POC Capillary Glucose 252 mg/dl H mg/dl 157 mg/dl H mg/dl (65-105) (65-105) Vancomycin Trough 8.5 ug/mL L ug/mL (10.0-20.0) 01/14/21 01/14/21 01/14/21 04:21 06:24 07:46 Creatinine 0.50 mg/dL L mg/dL (0.7-1.3) Estim Creat Clear Calc 133 ml/min ml/min Estimated GFR > 60 (59 - ) POC Capillary Glucose 157 mg/dl H mg/dl 161 mg/dl H mg/dl (65-105) (65-105) Vancomycin Trough 01/14/21 11:56 Creatinine Estim Creat Clear Calc Estimated GFR POC Capillary Glucose 120 mg/dl H mg/dl (65-105) Vancomycin Trough Patient hx anesthesia problems: none Family hx anesthesia problems: none Results Review: All pre-operative results and documents have been reviewed as part of the pre-operative evaluation. [facility] Past Medical History Medical History CAD (coronary artery disease) Status post CABG Cancer of transverse colon Status post right hemicolectomy Carpal tunnel syndrome Diabetes GERD (gastroesophageal reflux disease) HTN (hypertension) Surgical History Surgical History Finger amputee After crushing injury to right pointer finger H/O hernia repair 2018 H/O right knee surgery Hiatal hernia with GERD 1990 History of carpal tunnel release Right hand History of hand surgery History of right hemicolectomy with ileocolic anastomsis in 2019 Hx of CABG Family History Family History Sibling Family history of malignant neoplasm Father Family history of chronic obstructive pulmonary disease Hypertension Heart disease Mother Hypertension Cancer Sibling Cancer Sibling Cancer Sibling Cancer Social History Social History Social History: The patient is and lives with his . He has 4 children. 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 The patient is a full code. The patient is a former smoker. He does not use any alcohol marijuana or illicit drugs. He was on disability and is now officially retired. Years smoked: 10 Smoking status: Former smoker Tobacco type: cigarettes Second hand tobacco smoke exposure: No Additional smoking assessment comments: quit smoking over 30 years ago Alcohol intake: unknown Substance use: never Substance use type: does not use Gender identity (if verbalized by the patient): Male Spiritual care concerns: No Anes - Eval Final PreProcedure Day of Procedure 01/14/21 12:27 Patient weight: overweight Heart: regular rate and rhythm Lungs: clear to aus
[2021-01-14] MEDS: VANCOMYCIN HCL 1,000 MG VIAL 1000 MG TOPICAL (14:02)
[2021-01-14] MEDS: BUPIVACAINE HCL 0.5% PF 30 ML VIAL INFILTRATE (14:04)
--- NOTE | 2021-01-14 14:14 | W.PM.PROC2 ---
Procedure Note - Detailed Date of Procedure 01/14/21 Pre-op Diagnosis rt foot abscess, osteomyelitis Post-op Diagnosis same Procedure Performed Right foot infection excisional debridement, excision of osteomyelitis 3rd and 4th proximal phalanx Surgeon Blair Coreas MD Scanner Supervisor 1st medical receptionist medical assistant Anesthesia general Indications 65-year-old gentleman with uncontrolled diabetes who approximately 5 weeks ago stepped on a nail with his right foot. There is a puncture wound on the plantar aspect of the right foot. He was treated with antibiotics. He has gone on to develop further abscess of the area, drainage and nonhealing of the wound. He was started on intravenous antibiotics and is brought now to the operating room for debridement and removal of osteomyelitis, cultures in tissue sample Findings Dorsal 3rd webspace wound 5 mm which probes to the intermetatarsal space. Webspace ulcer 7 mm which also probes to the intermetatarsal space. Plantar skin 8 mm ulcer 3rd webspace which probes to the dorsum. Bone at the base of the 3rd proximal phalanx with questionable infection. Deep wound culture taken. Stat Gram stain taken. Base of the 3rd toe proximal phalanx submitted as tissue. Description of Procedure What was done: Patient identified in the preoperative holding. Informed consent given. Operative extremity marked. Patient received intravenous antibiotics. Patient brought to the operating room where underwent general anesthetic by anesthesia team. Positioned supine on operating room table. Time-out performed confirming the patient, site of the surgery and the plan. Right foot prepped draped usual sterile surgical fashion using a Betadine prep solution. Three distinct ulcers of the right foot in the 3rd webspace as noted in the findings. Fifteen blade knife used to connect all 3 ulcers through the webspace. Fifteen blade knife, rongeur used to sharply excise skin, subcutaneous tissue and muscle that was debrided or. Infected. This was passed off. Devitalized skin sharply excised. Dorsal longitudinal incision then made and 3rd webspace with a 15 blade knife. Hemostasis controlled electrocautery. Dissection carried down through the intermetatarsal space. Capsulotomy performed of the 3rd metatarsophalangeal joint. Osteotome used to transect the base of the 3rd proximal phalanx and a rongeur used to remove the base. This was passed off as specimen. Capsulotomy then performed of the 4th metatarsophalangeal joint. Bone cutter used to transect the base of the 4th proximal phalanx. Rongeur used to remove the base. Wound then thoroughly irrigated solution. Betadine solution applied to the wound and left for 2 minutes and then irrigated. Vancomycin powder applied to the wound. Skin closed with 3 0 Prolene interrupted suture. Sterile dressing applied. The patient was then woken from anesthesia, extubated and taken to the recovery room in stable condition. All sponge, needle, instrument counts were correct at the end of the case. Implants None Estimated Blood Loss 5 Tourniquet Time 0 Urine Output 300 Drains No Packing No Pathology yes (Base of the proximal phalanx of the 3rd toe, wound culture, stat Gram stain) Complications None Condition stable Disposition PACU
[2021-01-14 14:22] LABS: Glucose Point of Care 108 mg/dl (65-105)
[2021-01-14 16:25] LABS: Glucose Point of Care 130 mg/dl (65-105)
[2021-01-14] MEDS: DOCUSATE SODIUM 100 MG CAPSULE PO (16:36)
[2021-01-14] MEDS: ACETAMINOPHEN 325 MG TABLET 650 MG PO (16:36)
[2021-01-14] MEDS: INSULIN GLARGINE (*BKC) 100 UNITS/ML 26 UNITS SUB-Q (21:34)
[2021-01-14 21:58] LABS: Glucose Point of Care 267 mg/dl (65-105)
[2021-01-15 00:30] VITALS: BP 129/56; PULSE 74; RESP 20; TEMP 36.4; O2SAT 100
[2021-01-15 04:41] VITALS: BP 143/84; PULSE 94; RESP 20; TEMP 36.3; O2SAT 100
[2021-01-15 07:52] LABS: Glucose Point of Care 228 mg/dl (65-105)
[2021-01-15] MEDS: INSULIN ASPART (*BKC) 100 UNITS/ML SUB-Q (08:25)
[2021-01-15] MEDS: DOCUSATE SODIUM 100 MG CAPSULE PO (08:26)
[2021-01-15] MEDS: ASPIRIN 81 MG ENTERIC TABLET PO (08:26)
--- NOTE | 2021-01-15 08:46 | PM.PNORT ---
Progress Note: A&P Assessment and Plan (1) Foot abscess, right: Code(s): L02.611 - Cutaneous abscess of right foot Status: Acute Assessment and Plan: Postoperative day 1 right foot debridement. Dressing changed today. Daily dressing changes with dry gauze. IV antibiotics. G stain from operative sample shows gram-positive cocci. Fracture boot for protected weight-bearing. Subjective Subjective Date/Time Seen: 01/15/21 08:46 Post Op day: 1 Principal diagnosis: Right foot infection, osteomyelitis Interval history: postoperative day 1 right foot debridement. Operative findings reviewed with patient. He has no new complaints. Exam Const: General: healthy appearing; No in distress or confusion Orientation/consciousness: patient oriented x3 and No confusion HENMT: Head: normal to inspection, normocephalic and atraumatic Eyes: Conjunctivae: conjunctivae normal Sclera: sclerae normal Resp: Effort & Inspection: normal respiratory effort and no audible wheezes Neuro: General: patient oriented x3 and No confusion Extrem: Other: Right foot dressing changed. Incision clean dry and intact. Sanguinous drainage noted on the dressing. Toes with good capillary refill. Swelling improved. Negative Homans sign. Psych: Affect: normal affect Objective Data Vital Signs Vital Signs: Vital Signs - 24 hr 01/14/21 12:26 01/14/21 14:15 01/14/21 14:30 Temperature 97.2 F L 97.6 F Pulse Rate 77 69 66 Respiratory Rate 14 16 Blood Pressure 137/79 125/75 126/75 Pulse Oximetry 100 100 100 01/14/21 14:45 01/14/21 15:00 01/14/21 15:20 Temperature 97.3 F L 96.7 F L Pulse Rate 66 70 72 Respiratory Rate 11 L 11 L 16 Blood Pressure 122/74 124/73 121/71 Pulse Oximetry 100 100 100 01/14/21 15:35 01/14/21 16:05 01/14/21 17:05 Temperature 97.1 F L 96.7 F L 97 F L Pulse Rate 75 77 77 Respiratory Rate 16 16 18 Blood Pressure 130/70 120/68 125/69 Pulse Oximetry 99 98 100 01/14/21 20:43 01/15/21 00:30 01/15/21 04:41 Temperature 96.8 F L 97.6 F 97.4 F L Pulse Rate 76 74 94 Respiratory Rate 20 20 20 Blood Pressure 119/69 129/56 L 143/84 H Pulse Oximetry 99 100 100 Intake/Output Intake/Output: Intake & Output 01/12/21 01/13/21 01/14/21 01/15/21 23:59 23:59 23:59 23:59 Intake Total 1680 2530 2150 520 Output Total 909 948 9111 800 Balance 1080 1930 250 -280 Meds/Results Medications: Active Medications Generic Name Dose Route Start Last Admin Trade Name Freq PRN Reason Stop Dose Admin Acetaminophen 650 mg 01/12/21 17:57 01/14/21 16:36 Acetaminophen 325 Mg Tablet PO 650 mg Q6H PRN Administration Mild Pain (1-3) Or Fever Aspirin 81 mg 01/13/21 09:00 01/15/21 08:26 Aspirin 81 Mg Enteric Tablet PO 81 mg DAILY RANDA Administration Dextrose 12.5 gm 01/12/21 13:39 Dextrose 50% 25 Gm/50 Ml Syringe IV PUSH PRN PRN Hypoglycemia Protocol Docusate Sodium 100 mg 01/14/21 17:00 01/15/21 08:26 Docusate Sodium 100 Mg Capsule PO 100 mg BID RANDA Administration Glucagon 1 mg 01/12/21 13:39 Glucagon For Inj 1 Mg Vial IM PRN PRN Hypoglycemia Protocol Glucose 15 gm 01/12/21 13:39 Glucose Oral Gel 15 Gm Of Glucse In 37.5 Gm Tube PO PRN PRN Hypoglycemia Protocol Hydralazine HCl 10 mg 01/12/21 13:31 Hydralazine Hcl 20 Mg/Ml Vial IV PUSH Q8H PRN Blood Pressure - High Dextrose 1,000 mls @ 100 mls/hr 01/12/21 13:39 Dextrose 5% 1,000 Ml IVPB PRN PRN Hypoglycemia Protocol Imipenem/Cilastatin Sodium 500 mg in 100 mls @ 300 mls/hr 01/12/21 21:00 01/15/21 03:53 Primaxin 500 Mg/D5w 100 Ml IVPB Infused Q6H RANDA Infusion Vancomycin HCl 2,000 mg in 500 mls @ 250 mls/hr 01/14/21 06:00 01/15/21 06:01 Vancomycin 2,000 Mg/D5w 500 Ml IVPB 200 mls/hr Q12H RANDA Administration Insulin Aspart 3 - 6 units 01/12/21 17:00 01/15/21 08:25 Insulin Aspart (*Bkc) 100 U
[2021-01-15 08:50] VITALS: BP 145/72; PULSE 93; RESP 18; TEMP 36.3; O2SAT 100
--- NOTE | 2021-01-15 11:21 | PC.NURSE ---
[facility] arrived to install PICC line; time out performed with [facility] nurse at 1120; pt verified, consent signed
[2021-01-15 12:30] VITALS: BP 133/63; PULSE 85; RESP 18; TEMP 36.4; O2SAT 100
[2021-01-15 12:32] LABS: Glucose Point of Care 113 mg/dl (65-105)
[2021-01-15] MEDS: LIDOCAINE HCL 1% PF INJ 5 ML VIAL INFILTRATE (12:58)
[2021-01-15] MEDS: CENTRAL LINE FLUSH 10 ML IV PUSH ×2 (14:08→20:04)
[2021-01-15 15:54] VITALS: BP 140/86; PULSE 83; RESP 16; TEMP 36.4; O2SAT 100
[2021-01-15 16:10] LABS: Iron 24 ug/dL (49-181)
[2021-01-15 16:16] LABS: Vancomycin Trough 33.8 ug/mL (10.0-20.0)
[2021-01-15 16:20] LABS: Percent Iron Saturation 10 % (20-50)
[2021-01-15 16:28] LABS: Glucose Point of Care 169 mg/dl (65-105)
--- NOTE | 2021-01-15 16:57 | PM.DS ---
DS: Admitting Diagnosis Discharge Date 4:59 p.m. on January 18, 2021 Admitting Diagnosis Right plantar foot wound, status post surgical intervention with Orthopedic surgery on December 18, 2020: Right foot infection excisional debridement, excision of osteomyelitis of 3rd and 4th proximal phalanx with wound culture positive for Staph aureus DS: Summary Hospital Course Hospital Course: See discharge summary below Time Spent with Patient Time attestation: Total time spent providing and/or coordinating discharge services: START OF DOCTOR CAYLA?S DISCHARGE SUMMARY Date of Admission: January 04, 2021 Date of Discharge: 4:57 p.m. on January 16, 2020 Primary Diagnosis: ) Foot wound. Patient is status post Sineff 06/2020 with orthopedic surgery: Right foot infection excisional debridement, excision of osteomyelitis of 3rd and 4th proximal phalanx. Culture positive for Staph aureus Secondary Diagnosis: Diabetes Coronary artery disease, status post CABG GERD Hypertension Anemia Consultations: Orthopedic surgery, Infectious Disease Disposition: The patient is advised follow-up with orthopedic surgery/Wound Care Clinic as directed The patient is advised follow-up with Infectious Disease as directed for management of his IV antibiotics for his right plantar foot wound The patient is advised follow-up with his primary care physician 7-10 days post discharge for post hospitalization evaluation Discharge Medications: Metformin 500 mg p.o. b.i.d. Aspirin 81 mg p.o. daily Lantus 26 units subcutaneously q.h.s. Primaxin 500 mg IV q.6 hours until limb 50 9:00 p.m. on February 26, 2021 Vancomycin 2000 mg IV q.12 hours until 1:59 p.m. on February 26, 2021 END OF DOCTOR CAYLA?S DISCHARGE SUMMARY DS: Data Data Completed and Pending Pending studies at discharge: Pending at discharge 01/14/21 13:40 Surgical [PTH] Routine Labs on day of discharge: Labs from last 24 hours 01/15/21 01/15/21 01/15/21 16:24 15:34 15:34 POC Capillary Glucose 169 H Iron 24 L TIBC 248 L % Saturation Pending Ferritin 83.50 Vancomycin Trough 33.8 H 01/15/21 01/15/21 01/14/21 12:27 07:48 21:30 POC Capillary Glucose 113 H 228 H 267 H Iron TIBC % Saturation Ferritin Vancomycin Trough Preliminary micro results at discharge 01/14/21 13:38 Anaerobic Culture - Preliminary Foot Right 01/12/21 13:17 Wound Culture - Preliminary Foot Right Staphylococcus aureus 01/12/21 14:40 Blood Culture - Preliminary Blood 01/12/21 14:40 Blood Culture - Preliminary Blood Discharge Plan Discharge Consulting providers: Edil Lau ; Lori Little Discharging Clinician: Cayla Patient Disposition: Home Health Service Activity: as tolerated Diet: heart healthy, diabetic, low sodium, low cholesterol and low fat Discharge Instructions: Care Coordination: Patient to have [facility] ([phone]) resume services for PT/OT and retirement and [facility] infusion services ( ). Please fax discharge instructions and medication sheets to [facility] at . LORI LITTLE M.D. [facility] [address] [facility] [address] [place] [id number] POST OPERATIVE DISCHARGE INSTRUCTIONS FOOT/ANKLE SURGERY Elevate the involved extremity on pillows. For the first 48 hours, make sure that the foot is above the level of your heart. Carefully observe the exposed toes for evidence of swelling or discoloration. If the dressing is uncomfortable or tight, call the Dr?s office. Keep the dressing clean and dry. Change daily. May wash foot with soapy water.. If the pain medication does not provide adequate relief, please call Dr?s office. Take other medication as prescribed. Please ca
--- NOTE | 2021-01-15 18:39 | WPDINFPN2 ---
Progress Note: A&P Additional Plan 1. Right diabetic foot infection with osteomyelitis of the 3rd proximal phalanx associated with nonhealing ulcer. MRI is suggestive of osteomyelitis of the 3rd proximal phalanx. Status post debridement postoperative day 1. Intraoperative cultures are pending. Patient is empirically on imipenem and vancomycin will continue. Adjust antibiotics once susceptibility patterns are available. 2. Type 2 diabetes poorly controlled. Recommend tighter glycemic control. 3. Peripheral neuropathy Subjective Date/time seen: 01/15/21 18:39 Exam Eyes: Pupils: Equal, round and reactive pupils present Neck: Neck: normal visual inspection Resp: Effort & Inspection: normal respiratory effort Auscultation: clear to auscultation bilaterally Cardio: Palpation: normal PMI Rate: regular rate Rhythm: regular rhythm Heart sounds: S1 normal heart sound present and S2 normal heart sound present GI: Inspection: normal to inspection GI Palp: No abdominal tenderness, No Abdominal aortic bruit present, No Soft to palpation, No Firmness to palpation present (GI), No Tenderness to palpation present (GI), No Guarding due to palpation present (GI), No Rigid due to palpation, No No hepatosplenomegaly present, No Hepatosplenomegaly present, No Hepatomegaly present, No Splenomegaly present, No Hernia present, No Palpable mass present, No Pulsatile mass present, No Aortic enlargement present, No Ascites present, No Carnett's sign positive, No Rebound tenderness present, No Bladder palpation abnormal and No Other GI palpation findings present Skin: Other: Right foot surgical site dressing in place. Wound was not examined. Neuro: General: oriented to person Cranial nerves: Yes CN's II-XII intact bilaterally Cognition (Neuro): normal cognition Speech: normal speech Motor exam (neuro): 5/5 motor strength present throughout Extrem: General: normal to inspection Right lower extremity: normal to inspection Left lower extremity: normal to inspection Psych: Appearance: grossly normal Mental Status: mental status grossly normal Affect: normal affect Attitude: cooperative Thought content: Yes Normal thought content present Objective Data Vital Signs Vital Signs: Vital Signs - 24 hr 01/14/21 20:43 01/15/21 00:30 01/15/21 04:41 Temperature 36.0 C L 36.4 C 36.3 C L Pulse Rate 76 74 94 Respiratory Rate 20 20 20 Blood Pressure 119/69 129/56 L 143/84 H Pulse Oximetry 99 100 100 01/15/21 08:50 01/15/21 12:30 01/15/21 15:54 Temperature 36.3 C L 36.4 C L 36.4 C Pulse Rate 93 85 83 Respiratory Rate 18 18 16 Blood Pressure 145/72 H 133/63 140/86 Pulse Oximetry 100 100 100 Intake/Output Intake/Output: Intake & Output 01/12/21 01/13/21 01/14/21 01/15/21 23:59 23:59 23:59 23:59 Intake Total 1680 2530 2150 2730 Output Total 557 786 9029 800 Balance 1080 5503 849 7467 Meds/Results Medications: Active Medications Generic Name Dose Route Start Last Admin Trade Name Freq PRN Reason Stop Dose Admin Acetaminophen 650 mg 01/12/21 17:57 01/14/21 16:36 Acetaminophen 325 Mg Tablet PO 650 mg Q6H PRN Administration Mild Pain (1-3) Or Fever Aspirin 81 mg 01/13/21 09:00 01/15/21 08:26 Aspirin 81 Mg Enteric Tablet PO 81 mg DAILY RANDA Administration Dextrose 12.5 gm 01/12/21 13:39 Dextrose 50% 25 Gm/50 Ml Syringe IV PUSH PRN PRN Hypoglycemia Protocol Docusate Sodium 100 mg 01/14/21 17:00 01/15/21 18:08 Docusate Sodium 100 Mg Capsule PO Not Given BID [facility] Enoxaparin Sodium 40 mg 01/16/21 09:00 Enoxaparin 40 Mg/0.4 Ml Syringe SUB-Q DAILY RANDA Glucagon 1 mg 01/12/21 13:39 Glucagon For Inj 1 Mg Vial IM PRN PRN Hypoglycemia Protocol Glucose 15 gm 01/12/21 13:39 Glucose Oral Gel 15 Gm Of Glucse In 37.5 Gm Tube PO PRN PRN Hypoglycemia Protocol Hydralazine HCl 10 mg 01/12/21 13:31 Hydralazine Hcl 20 Mg/Ml Vial
[2021-01-15] MEDS: INSULIN GLARGINE (*BKC) 100 UNITS/ML 26 UNITS SUB-Q (20:04)
[2021-01-15 20:09] LABS: Glucose Point of Care 206 mg/dl (65-105)
[2021-01-15 20:16] VITALS: BP 145/74; PULSE 80; RESP 16; TEMP 36.4; O2SAT 100
== END 2021-01-15 22:50 | disposition home health service (06) | DRG 623 ==
PROVIDERS: Nurse Practitioner; Nurse Practitioner Family; Orthopaedic Surgery; Admitting Provider Family Medicine; PCP Family Medicine; Visit Provider Internal Medicine
PROC: 0KBV0ZZ Excision of Right Foot Muscle, Open Approach (ICD-10-PCS; principal; 2021-01-14 13:00)
DX: E11.69 Type 2 diabetes mellitus with other specified complication (principal); M86.171 Other acute osteomyelitis, right ankle and foot; L03.115 Cellulitis of right lower limb; S91.331S Puncture wound without foreign body, right foot, sequela; W45.0XXS Nail entering through skin, sequela; E11.628 Type 2 diabetes mellitus with other skin complications; B95.61 Methicillin susceptible Staphylococcus aureus infection as the cause of diseases classified elsewhere; E11.621 Type 2 diabetes mellitus with foot ulcer; L97.519 Non-pressure chronic ulcer of other part of right foot with unspecified severity; E11.42 Type 2 diabetes mellitus with diabetic polyneuropathy; I25.10 Atherosclerotic heart disease of native coronary artery without angina pectoris; I10 Essential (primary) hypertension; K21.9 Gastro-esophageal reflux disease without esophagitis; D64.9 Anemia, unspecified; G56.00 Carpal tunnel syndrome, unspecified upper limb; Z95.1 Presence of aortocoronary bypass graft; Z85.038 Personal history of other malignant neoplasm of large intestine; Z87.891 Personal history of nicotine dependence; Z79.4 Long term (current) use of insulin
CPT/HCPCS: 36415; 36569; 73620; 73720; 80053; 80202; 82565; 82728; 82948; 83036; 83540; 83550; 83605; 83615; 83735; 84443; 85025; 85652; 86140; 87040; 87070; 87075; 87077; 87186; 87205; 88305; 88311; 93922; A9270; A9577; C1751; J0743; J1100; J1815; J2370; J2405; J2704; J3370; J7120

== ENCOUNTER 2021-01-18 08:55 | Outpatient (NON) | payer OTHER, SELFPAY ==
[2021-01-18 10:04] LABS: Basophils Absolute Auto 0.04 K/mm3 (0.00-0.10); Basophils Percent Auto 0.7 % (0.0-1.0); Eosinophils Absolute Auto 0.39 K/mm3 (0.02-0.50); Eosinophils Percent Auto 6.5 % (1.0-6.0); Hematocrit 35.5 % (37.0-46.0); Hemoglobin 12.3 g/dL (12.4-15.3); Immature Granulocyte Absolute 0.01 K/mm3 (0.00-0.00); Immature Granulocyte Percent A 0.2 % (0.0-0.0); Lymphocytes Absolute Auto 1.11 K/mm3 (1.10-4.50); Lymphocytes Percent Auto 18.5 % (18.0-42.0); Mean Corpuscular HGB Conc 34.6 g/dL (32.0-36.0); Mean Corpuscular Hemoglobin 31.1 pg (27.0-31.0); Mean Corpuscular Volume 89.6 fL (78.0-102.0); Mean Platelet Volume 10.7 fl (8.7-11.0); Monocytes Absolute Auto 0.57 K/mm3 (0.10-0.90); Monocytes Percent Auto 9.5 % (2.0-11.0); Neutrophils Absolute Auto 3.9 K/mm3 (1.7-7.2); Neutrophils Percent Auto 64.6 % (50.0-70.0); Platelet Count Result 234 K/mm3 (150-420); Red Blood Count 3.96 M/mm3 (4.70-6.10); Red Cell Distribution Width 11.7 % (11.6-14.4)
[2021-01-18 10:28] LABS: Anion Gap 10 mmol/L (8-16); Blood Urea Nitrogen 14 mg/dL (7-18); CRP 5.7 mg/dL (0.0-0.9); Calcium 8.7 mg/dL (8.5-10.1); Carbon Dioxide 31 mmol/L (21-32); Chloride 101 mmol/L (98-108); Estimated Glomerular Filt Rate > 60; Glucose 98 mg/dL (70-99); Osmolality Calculated 294 mOsm/kg (285-295); Potassium 3.6 mmol/L (3.5-5.1); Sodium 142 mmol/L (136-145)
== END 2021-01-18 08:56 | disposition home or self-care (01) ==
LOC: CHSHH 08:58
PROVIDERS: Visit Provider Internal Medicine Infectious Disease
DX: M86.10 Other acute osteomyelitis, unspecified site (principal); L03.115 Cellulitis of right lower limb
CPT/HCPCS: 80048; 80202; 85025; 86140

== ENCOUNTER 2021-01-21 09:06 | Outpatient (NON) | payer OTHER, SELFPAY ==
[2021-01-21 09:31] LABS: Basophils Absolute Auto 0.06 K/mm3 (0.00-0.10); Basophils Percent Auto 1.1 % (0.0-1.0); Eosinophils Absolute Auto 0.32 K/mm3 (0.02-0.50); Eosinophils Percent Auto 5.8 % (1.0-6.0); Hematocrit 35.9 % (37.0-46.0); Hemoglobin 12.4 g/dL (12.4-15.3); Immature Granulocyte Absolute 0.01 K/mm3 (0.00-0.00); Immature Granulocyte Percent A 0.2 % (0.0-0.0); Lymphocytes Absolute Auto 1.07 K/mm3 (1.10-4.50); Lymphocytes Percent Auto 19.2 % (18.0-42.0); Mean Corpuscular HGB Conc 34.5 g/dL (32.0-36.0); Mean Corpuscular Hemoglobin 31.2 pg (27.0-31.0); Mean Corpuscular Volume 90.4 fL (78.0-102.0); Mean Platelet Volume 10.1 fl (8.7-11.0); Monocytes Absolute Auto 0.53 K/mm3 (0.10-0.90); Monocytes Percent Auto 9.5 % (2.0-11.0); Neutrophils Absolute Auto 3.6 K/mm3 (1.7-7.2); Neutrophils Percent Auto 64.2 % (50.0-70.0); Platelet Count Result 235 K/mm3 (150-420); Red Blood Count 3.97 M/mm3 (4.70-6.10); Red Cell Distribution Width 11.6 % (11.6-14.4); White Blood Count 5.6 K/mm3 (4.8-10.8)
[2021-01-21 10:01] LABS: Anion Gap 9 mmol/L (8-16); Blood Urea Nitrogen 17 mg/dL (7-18); Calcium 8.9 mg/dL (8.5-10.1); Carbon Dioxide 30 mmol/L (21-32); Chloride 102 mmol/L (98-108); Estimated Glomerular Filt Rate > 60; Glucose 91 mg/dL (70-99); Osmolality Calculated 293 mOsm/kg (285-295); Potassium 4.2 mmol/L (3.5-5.1); Sodium 141 mmol/L (136-145)
== END 2021-01-21 09:07 | disposition home or self-care (01) ==
LOC: CHSLAB 09:09 → CHSHH 09:10
PROVIDERS: Visit Provider Internal Medicine Infectious Disease
DX: M86.10 Other acute osteomyelitis, unspecified site (principal); L03.115 Cellulitis of right lower limb
CPT/HCPCS: 36415; 80048; 85025; 86140

== ENCOUNTER 2021-01-25 10:12 | Outpatient (NON) | payer OTHER, SELFPAY ==
[2021-01-25 10:48] LABS: Basophils Absolute Auto 0.08 K/mm3 (0.00-0.10); Basophils Percent Auto 1.2 % (0.0-1.0); Eosinophils Absolute Auto 0.42 K/mm3 (0.02-0.50); Eosinophils Percent Auto 6.2 % (1.0-6.0); Hematocrit 37.7 % (37.0-46.0); Hemoglobin 12.7 g/dL (12.4-15.3); Immature Granulocyte Absolute 0.02 K/mm3 (0.00-0.00); Immature Granulocyte Percent A 0.3 % (0.0-0.0); Lymphocytes Absolute Auto 1.09 K/mm3 (1.10-4.50); Mean Corpuscular HGB Conc 33.7 g/dL (32.0-36.0); Mean Corpuscular Hemoglobin 30.6 pg (27.0-31.0); Mean Corpuscular Volume 90.8 fL (78.0-102.0); Monocytes Absolute Auto 0.67 K/mm3 (0.10-0.90); Monocytes Percent Auto 9.8 % (2.0-11.0); Neutrophils Absolute Auto 4.5 K/mm3 (1.7-7.2); Neutrophils Percent Auto 66.5 % (50.0-70.0); Platelet Count Result 277 K/mm3 (150-420); Red Blood Count 4.15 M/mm3 (4.70-6.10); Red Cell Distribution Width 11.8 % (11.6-14.4); White Blood Count 6.8 K/mm3 (4.8-10.8)
[2021-01-25 11:29] LABS: Anion Gap 6 mmol/L (8-16); Blood Urea Nitrogen 16 mg/dL (7-18); CRP 1.4 mg/dL (0.0-0.9); Calcium 9.1 mg/dL (8.5-10.1); Carbon Dioxide 33 mmol/L (21-32); Chloride 101 mmol/L (98-108); Estimated Glomerular Filt Rate > 60; Glucose 106 mg/dL (70-99); Osmolality Calculated 291 mOsm/kg (285-295); Potassium 4.2 mmol/L (3.5-5.1); Sodium 140 mmol/L (136-145); Vancomycin Trough 11.9 ug/mL (10.0-15.0)
== END 2021-01-25 10:13 | disposition home or self-care (01) ==
PROVIDERS: Visit Provider Internal Medicine Infectious Disease
DX: M86.10 Other acute osteomyelitis, unspecified site (principal); L03.115 Cellulitis of right lower limb
CPT/HCPCS: 36415; 80048; 80202; 85025; 86140

== ENCOUNTER 2021-01-28 09:15 | Outpatient (NON) | payer OTHER, SELFPAY ==
[2021-01-28 09:30] LABS: Basophils Absolute Auto 0.06 K/mm3 (0.00-0.10); Basophils Percent Auto 0.8 % (0.0-1.0); Hematocrit 36.6 % (37.0-46.0); Hemoglobin 12.6 g/dL (12.4-15.3); Immature Granulocyte Absolute 0.02 K/mm3 (0.00-0.00); Immature Granulocyte Percent A 0.3 % (0.0-0.0); Lymphocytes Absolute Auto 0.85 K/mm3 (1.10-4.50); Lymphocytes Percent Auto 11.3 % (18.0-42.0); Mean Corpuscular HGB Conc 34.4 g/dL (32.0-36.0); Mean Corpuscular Volume 90.1 fL (78.0-102.0); Mean Platelet Volume 9.8 fl (8.7-11.0); Monocytes Absolute Auto 0.55 K/mm3 (0.10-0.90); Monocytes Percent Auto 7.3 % (2.0-11.0); Neutrophils Absolute Auto 5.8 K/mm3 (1.7-7.2); Neutrophils Percent Auto 76.3 % (50.0-70.0); Platelet Count Result 259 K/mm3 (150-420); Red Blood Count 4.06 M/mm3 (4.70-6.10); Red Cell Distribution Width 11.7 % (11.6-14.4); White Blood Count 7.5 K/mm3 (4.8-10.8)
[2021-01-28 09:50] LABS: Anion Gap 9 mmol/L (8-16); Blood Urea Nitrogen 16 mg/dL (7-18); CRP < 0.5 mg/dL (0.0-0.9); Carbon Dioxide 29 mmol/L (21-32); Chloride 102 mmol/L (98-108); Estimated Glomerular Filt Rate > 60; Glucose 117 mg/dL (70-99); Osmolality Calculated 292 mOsm/kg (285-295); Potassium 4.2 mmol/L (3.5-5.1); Sodium 140 mmol/L (136-145); Vancomycin Trough 15.4 ug/mL (10.0-15.0)
== END 2021-01-28 09:16 | disposition home or self-care (01) ==
LOC: CHSLAB 09:17
PROVIDERS: Visit Provider Internal Medicine Infectious Disease
DX: M86.10 Other acute osteomyelitis, unspecified site (principal); L03.115 Cellulitis of right lower limb
CPT/HCPCS: 80048; 80202; 85025; 86140

== ENCOUNTER 2021-01-29 06:49 | Outpatient (RCR) | payer OTHER, SELFPAY ==
[2021-01-29] MEDS: ALTEPLASE 2 MG VIAL (CATHFLO) IV PUSH (07:10)
--- NOTE | 2021-01-29 07:25 | PC.NURSE ---
Cathflo 2 mg instilled into each lumen of dual lumen picc line at 0710.
--- NOTE | 2021-01-29 09:24 | PC.NURSE ---
0910 Cathflo removed from both lumens of dual lumen picc after 2 hour dwell. Brisk blood return and easy flush results after Cathflo. Needleless connectors changed. Each lumen flushed with 20 ml of normal saline, then 50 units heparin (10 units/ml a total of 5 ml) instilled.
== END 2021-04-29 23:59 | disposition home or self-care (01) ==
LOC: ANHVASCINF 06:49
PROVIDERS: PCP Family Medicine; Visit Provider Internal Medicine Infectious Disease
DX: Z45.2 Encounter for adjustment and management of vascular access device (principal); T82.514D Breakdown (mechanical) of infusion catheter, subsequent encounter
CPT/HCPCS: 36593; J2997

== ENCOUNTER 2021-02-01 08:55 | Outpatient (NON) | payer OTHER, SELFPAY ==
[2021-02-01 09:33] LABS: Hematocrit 39.8 % (37.0-46.0); Hemoglobin 13.5 g/dL (12.4-15.3); Mean Corpuscular HGB Conc 33.9 g/dL (32.0-36.0); Mean Corpuscular Hemoglobin 30.4 pg (27.0-31.0); Mean Corpuscular Volume 89.6 fL (78.0-102.0); Mean Platelet Volume 9.8 fl (8.7-11.0); Platelet Count Result 278 K/mm3 (150-420); Red Blood Count 4.44 M/mm3 (4.70-6.10); Red Cell Distribution Width 11.8 % (11.6-14.4); White Blood Count 6.3 K/mm3 (4.8-10.8)
[2021-02-01 10:04] LABS: Band Neutrophils Percent 0 % (0-6); Neutrophils Absolute Manual 3.65 K/mm3 (1.3-6.7); Neutrophils Percent Manual 58 % (46-73); Total Cells Counted 100
[2021-02-01 10:05] LABS: Basophils Absolute Manual 0.18 K/mm3 (0-0.1); Basophils Percent Manual 3 % (0-1); Eosinophils Absolute Manual 0.81 K/mm3 (0.02-0.5); Eosinophils Percent Manual 13 % (1-6); Lymphocytes Percent Manual 16 % (18-44); Monocytes Absolute Manual 0.63 K/mm3 (0.1-0.90); Monocytes Percent Manual 10 % (3-9); Platelet Estimate Adequate (Adequate)
[2021-02-01 10:16] LABS: Anion Gap 7 mmol/L (8-16); Blood Urea Nitrogen 20 mg/dL (7-18); Calcium 9.3 mg/dL (8.5-10.1); Carbon Dioxide 31 mmol/L (21-32); Chloride 99 mmol/L (98-108); Estimated Glomerular Filt Rate > 60; Glucose 209 mg/dL (70-99); Osmolality Calculated 292 mOsm/kg (285-295); Potassium 4.4 mmol/L (3.5-5.1); Sodium 137 mmol/L (136-145); Vancomycin Trough 13.5 ug/mL (10.0-15.0)
[2021-02-01 10:21] LABS: CRP < 0.2 mg/dL (0.0-0.9)
== END 2021-02-01 08:56 | disposition home or self-care (01) ==
LOC: CHSHH 08:57
PROVIDERS: Visit Provider Internal Medicine Infectious Disease
DX: M86.10 Other acute osteomyelitis, unspecified site (principal); L03.115 Cellulitis of right lower limb
CPT/HCPCS: 36415; 80048; 80202; 85025; 86140

== ENCOUNTER 2021-02-04 09:15 | Outpatient (NON) | payer OTHER, SELFPAY ==
[2021-02-04 09:37] LABS: Hematocrit 39.6 % (37.0-46.0); Hemoglobin 13.5 g/dL (12.4-15.3); Mean Corpuscular HGB Conc 34.1 g/dL (32.0-36.0); Mean Corpuscular Hemoglobin 30.7 pg (27.0-31.0); Platelet Count Result 243 K/mm3 (150-420); Red Cell Distribution Width 11.9 % (11.6-14.4); White Blood Count 6.4 K/mm3 (4.8-10.8)
[2021-02-04 10:01] LABS: Band Neutrophils Percent 0 % (0-6); Basophils Absolute Manual 0.06 K/mm3 (0-0.1); Basophils Percent Manual 1 % (0-1); Eosinophils Absolute Manual 1.34 K/mm3 (0.02-0.5); Eosinophils Percent Manual 21 % (1-6); Lymphocytes Absolute Manual 1.66 K/mm3 (1.1-4.5); Lymphocytes Percent Manual 26 % (18-44); Monocytes Absolute Manual 0.57 K/mm3 (0.1-0.90); Monocytes Percent Manual 9 % (3-9); Neutrophils Absolute Manual 2.75 K/mm3 (1.3-6.7); Neutrophils Percent Manual 43 % (46-73); Platelet Estimate Adequate (Adequate); Total Cells Counted 100
[2021-02-04 10:03] LABS: Anion Gap 9 mmol/L (8-16); Blood Urea Nitrogen 18 mg/dL (7-18); Calcium 8.7 mg/dL (8.5-10.1); Carbon Dioxide 30 mmol/L (21-32); Chloride 101 mmol/L (98-108); Estimated Glomerular Filt Rate > 60; Glucose 99 mg/dL (70-99); Osmolality Calculated 291 mOsm/kg (285-295); Potassium 3.8 mmol/L (3.5-5.1); Sodium 140 mmol/L (136-145)
[2021-02-04 10:12] LABS: CRP < 0.2 mg/dL (0.0-0.9)
== END 2021-02-04 09:16 | disposition home or self-care (01) ==
LOC: CHSHH 09:17
PROVIDERS: Visit Provider Internal Medicine Infectious Disease
DX: M66 Spontaneous rupture of synovium and tendon (principal); L03.115 Cellulitis of right lower limb
CPT/HCPCS: 36415; 80048; 85025; 86140

== ENCOUNTER 2021-02-08 09:10 | Outpatient (NON) | payer OTHER, SELFPAY ==
[2021-02-08 09:35] LABS: Hematocrit 38.3 % (37.0-46.0); Hemoglobin 13.1 g/dL (12.4-15.3); Mean Corpuscular HGB Conc 34.2 g/dL (32.0-36.0); Mean Corpuscular Hemoglobin 30.5 pg (27.0-31.0); Mean Corpuscular Volume 89.3 fL (78.0-102.0); Mean Platelet Volume 9.9 fl (8.7-11.0); Platelet Count Result 218 K/mm3 (150-420); Red Blood Count 4.29 M/mm3 (4.70-6.10); Red Cell Distribution Width 11.9 % (11.6-14.4); White Blood Count 6.6 K/mm3 (4.8-10.8)
[2021-02-08 10:09] LABS: Band Neutrophils Percent 0 % (0-6); Basophils Absolute Manual 0.06 K/mm3 (0-0.1); Basophils Percent Manual 1 % (0-1); Eosinophils Absolute Manual 1.05 K/mm3 (0.02-0.5); Eosinophils Percent Manual 16 % (1-6); Lymphocytes Absolute Manual 2.04 K/mm3 (1.1-4.5); Lymphocytes Percent Manual 31 % (18-44); Monocytes Absolute Manual 0.46 K/mm3 (0.1-0.90); Monocytes Percent Manual 7 % (3-9); Neutrophils Absolute Manual 2.97 K/mm3 (1.3-6.7); Neutrophils Percent Manual 45 % (46-73); Total Cells Counted 100
[2021-02-08 10:10] LABS: Anion Gap 7 mmol/L (8-16); Blood Urea Nitrogen 22 mg/dL (7-18); Calcium 8.7 mg/dL (8.5-10.1); Carbon Dioxide 31 mmol/L (21-32); Chloride 102 mmol/L (98-108); Estimated Glomerular Filt Rate > 60; Glucose 100 mg/dL (70-99); Osmolality Calculated 293 mOsm/kg (285-295); Platelet Estimate Adequate (Adequate); Potassium 3.9 mmol/L (3.5-5.1); Sodium 140 mmol/L (136-145); Vancomycin Trough 17.1 ug/mL (10.0-15.0)
[2021-02-08 10:20] LABS: CRP < 0.5 mg/dL (0.0-0.9)
== END 2021-02-08 09:11 | disposition home or self-care (01) ==
LOC: CHSHH 09:13
PROVIDERS: Visit Provider Internal Medicine Infectious Disease
DX: M86.10 Other acute osteomyelitis, unspecified site (principal); L03.115 Cellulitis of right lower limb
CPT/HCPCS: 36415; 80048; 80202; 85025; 86140

== ENCOUNTER 2021-02-15 10:51 | Outpatient (RCR) | payer OTHER, SELFPAY ==
[2021-02-11 13:25] LABS: Basophils Absolute Auto 0.1 K/mm3 (0.0-0.1); Basophils Percent Auto 1.1 % (0.2-1.2); Eosinophils Absolute Auto 0.6 K/mm3 (0-0.3); Eosinophils Percent Auto 11.5 % (0-4.4); Hematocrit 40.9 % (42.0-52.0); Hemoglobin 13.7 g/dL (14.0-18.0); Immature Granulocyte Absolute 0.01 K/mm3 (0.00-0.031); Immature Granulocyte Percent A 0.2 % (0-0.5); Lymphocytes Absolute Auto 1.15 K/mm3 (0.9-3.2); Lymphocytes Percent Auto 21.4 % (18.3-44.2); Mean Corpuscular HGB Conc 33.5 g/dl (32-36); Mean Corpuscular Hemoglobin 31.1 pg (26-34); Mean Corpuscular Volume 92.7 fl (80-100); Mean Platelet Volume 10.2 fl (7.4-10.4); Monocytes Absolute Auto 0.5 K/mm3 (0.1-0.6); Monocytes Percent Auto 9.7 % (2.6-8.5); Neutrophils Percent Auto 56.1 % (45.5-73.1); Platelet Count Result 200 k/mm3 (150-375); Red Blood Count 4.41 M/mm3 (4.6-6.20); Red Cell Distribution Width 11.9 % (11.5-14.5); White Blood Count 5.4 K/mm3 (4.5-10.0)
[2021-02-11 13:34] LABS: Anion Gap 8 mmol/L (8-16); Blood Urea Nitrogen 22 mg/dL (9-20); CRP < 0.5 mg/dL (<1.0); Calcium 9.6 mg/dL (8.4-10.2); Carbon Dioxide 31 mmol/L (22-30); Chloride 97 mmol/L (98-107); Estimated Glomerular Filt Rate > 60; Glucose 136 mg/dL (65-110); Potassium 4.2 mmol/L (3.4-5.0); Sodium 136 mmol/L (137-145)
[2021-02-15 11:13] LABS: Basophils Absolute Auto 0.1 K/mm3 (0.0-0.1); Basophils Percent Auto 1.1 % (0.2-1.2); Eosinophils Percent Auto 17.9 % (0-4.4); Hematocrit 41.4 % (42.0-52.0); Hemoglobin 14.1 g/dL (14.0-18.0); Lymphocytes Absolute Auto 0.99 K/mm3 (0.9-3.2); Lymphocytes Percent Auto 17.7 % (18.3-44.2); Mean Corpuscular HGB Conc 34.1 g/dl (32-36); Mean Corpuscular Hemoglobin 31.2 pg (26-34); Mean Corpuscular Volume 91.6 fl (80-100); Mean Platelet Volume 10.1 fl (7.4-10.4); Monocytes Absolute Auto 0.5 K/mm3 (0.1-0.6); Monocytes Percent Auto 9.5 % (2.6-8.5); Neutrophils Percent Auto 53.8 % (45.5-73.1); Platelet Count Result 186 k/mm3 (150-375); Red Blood Count 4.52 M/mm3 (4.6-6.20); White Blood Count 5.6 K/mm3 (4.5-10.0)
[2021-02-15 13:22] LABS: Anion Gap 7 mmol/L (8-16); Blood Urea Nitrogen 22 mg/dL (9-20); CRP < 0.5 mg/dL (<1.0); Calcium 9.7 mg/dL (8.4-10.2); Carbon Dioxide 32 mmol/L (22-30); Chloride 99 mmol/L (98-107); Estimated Glomerular Filt Rate > 60; Glucose 157 mg/dL (65-110); Potassium 4.1 mmol/L (3.4-5.0); Sodium 138 mmol/L (137-145)
[2021-02-16 16:19] LABS: Vancomycin Trough 14.4 ug/mL (10.0-20.0)
== END 2021-05-12 23:59 | disposition home or self-care (01) ==
LOC: HOME HLTH 10:51
PROVIDERS: PCP Family Medicine; Visit Provider Internal Medicine Infectious Disease
DX: L03.115 Cellulitis of right lower limb (principal); M86.10 Other acute osteomyelitis, unspecified site
CPT/HCPCS: 80048; 80202; 85025; 86140

== ENCOUNTER 2021-02-18 10:13 | Outpatient (NON) | payer OTHER, SELFPAY ==
[2021-02-18 10:49] LABS: Hematocrit 39.6 % (37.0-46.0); Hemoglobin 13.5 g/dL (12.4-15.3); Mean Corpuscular HGB Conc 34.1 g/dL (32.0-36.0); Mean Corpuscular Hemoglobin 30.8 pg (27.0-31.0); Mean Corpuscular Volume 90.2 fL (78.0-102.0); Mean Platelet Volume 10.3 fl (8.7-11.0); Platelet Count Result 182 K/mm3 (150-420); Red Blood Count 4.39 M/mm3 (4.70-6.10); Red Cell Distribution Width 11.9 % (11.6-14.4); White Blood Count 5.5 K/mm3 (4.8-10.8)
[2021-02-18 10:59] LABS: Anion Gap 6 mmol/L (8-16); Blood Urea Nitrogen 19 mg/dL (7-18); Calcium 9.3 mg/dL (8.5-10.1); Carbon Dioxide 32 mmol/L (21-32); Chloride 101 mmol/L (98-108); Estimated Glomerular Filt Rate > 60; Glucose 153 mg/dL (70-99); Osmolality Calculated 293 mOsm/kg (285-295); Potassium 4.3 mmol/L (3.5-5.1); Sodium 139 mmol/L (136-145)
[2021-02-18 11:04] LABS: CRP < 0.2 mg/dL (0.0-0.9)
[2021-02-18 11:30] LABS: Band Neutrophils Percent 0 % (0-6); Eosinophils Absolute Manual 0.38 K/mm3 (0.02-0.5); Eosinophils Percent Manual 7 % (1-6); Lymphocytes Absolute Manual 1.26 K/mm3 (1.1-4.5); Lymphocytes Percent Manual 23 % (18-44); Monocytes Absolute Manual 0.44 K/mm3 (0.1-0.90); Monocytes Percent Manual 8 % (3-9); Neutrophils Absolute Manual 3.41 K/mm3 (1.3-6.7); Neutrophils Percent Manual 62 % (46-73); Platelet Estimate Adequate (Adequate); Total Cells Counted 100
== END 2021-02-18 10:14 | disposition home or self-care (01) ==
LOC: CHSHH 10:15
PROVIDERS: Visit Provider Internal Medicine Infectious Disease
DX: M86.10 Other acute osteomyelitis, unspecified site (principal); L03.115 Cellulitis of right lower limb
CPT/HCPCS: 36415; 80048; 85025; 86140

== ENCOUNTER 2021-02-22 09:40 | Outpatient (NON) | payer OTHER, SELFPAY ==
[2021-02-22 09:54] LABS: Basophils Absolute Auto 0.07 K/mm3 (0.00-0.10); Basophils Percent Auto 0.8 % (0.0-1.0); Eosinophils Absolute Auto 0.34 K/mm3 (0.02-0.50); Eosinophils Percent Auto 3.8 % (1.0-6.0); Hematocrit 38.5 % (37.0-46.0); Hemoglobin 13.2 g/dL (12.4-15.3); Immature Granulocyte Absolute 0.04 K/mm3 (0.00-0.00); Immature Granulocyte Percent A 0.4 % (0.0-0.0); Lymphocytes Absolute Auto 0.84 K/mm3 (1.10-4.50); Lymphocytes Percent Auto 9.4 % (18.0-42.0); Mean Corpuscular HGB Conc 34.3 g/dL (32.0-36.0); Mean Corpuscular Hemoglobin 30.6 pg (27.0-31.0); Mean Corpuscular Volume 89.3 fL (78.0-102.0); Mean Platelet Volume 10.2 fl (8.7-11.0); Monocytes Absolute Auto 0.62 K/mm3 (0.10-0.90); Neutrophils Percent Auto 78.6 % (50.0-70.0); Platelet Count Result 191 K/mm3 (150-420); Red Blood Count 4.31 M/mm3 (4.70-6.10); Red Cell Distribution Width 11.9 % (11.6-14.4); White Blood Count 8.9 K/mm3 (4.8-10.8)
[2021-02-22 10:11] LABS: Anion Gap 6 mmol/L (8-16); Blood Urea Nitrogen 19 mg/dL (7-18); Carbon Dioxide 30 mmol/L (21-32); Chloride 102 mmol/L (98-108); Estimated Glomerular Filt Rate > 60; Glucose 239 mg/dL (70-99); Osmolality Calculated 296 mOsm/kg (285-295); Potassium 4.3 mmol/L (3.5-5.1); Sodium 138 mmol/L (136-145); Vancomycin Trough 15.6 ug/mL (10.0-15.0)
[2021-02-22 10:18] LABS: CRP < 0.5 mg/dL (0.0-0.9)
== END 2021-02-22 09:41 | disposition home or self-care (01) ==
LOC: CHSHH 09:44
PROVIDERS: Visit Provider Internal Medicine Infectious Disease
DX: M86.10 Other acute osteomyelitis, unspecified site (principal); L03.115 Cellulitis of right lower limb
CPT/HCPCS: 36415; 80048; 80202; 85025; 86140

== ENCOUNTER 2021-02-25 12:45 | Outpatient (NON) | payer OTHER, SELFPAY ==
[2021-02-25 12:55] LABS: Basophils Absolute Auto 0.07 K/mm3 (0.00-0.10); Basophils Percent Auto 1.1 % (0.0-1.0); Eosinophils Absolute Auto 0.51 K/mm3 (0.02-0.50); Hematocrit 41.3 % (37.0-46.0); Hemoglobin 14.1 g/dL (12.4-15.3); Immature Granulocyte Absolute 0.02 K/mm3 (0.00-0.00); Immature Granulocyte Percent A 0.3 % (0.0-0.0); Lymphocytes Percent Auto 20.3 % (18.0-42.0); Mean Corpuscular HGB Conc 34.1 g/dL (32.0-36.0); Mean Corpuscular Hemoglobin 30.9 pg (27.0-31.0); Mean Corpuscular Volume 90.6 fL (78.0-102.0); Mean Platelet Volume 10.2 fl (8.7-11.0); Monocytes Percent Auto 7.8 % (2.0-11.0); Neutrophils Percent Auto 62.5 % (50.0-70.0); Platelet Count Result 203 K/mm3 (150-420); Red Blood Count 4.56 M/mm3 (4.70-6.10); Red Cell Distribution Width 11.8 % (11.6-14.4); White Blood Count 6.4 K/mm3 (4.8-10.8)
[2021-02-25 13:09] LABS: Anion Gap 7 mmol/L (8-16); Blood Urea Nitrogen 21 mg/dL (7-18); Calcium 9.2 mg/dL (8.5-10.1); Carbon Dioxide 31 mmol/L (21-32); Chloride 99 mmol/L (98-108); Estimated Glomerular Filt Rate > 60; Glucose 297 mg/dL (70-99); Osmolality Calculated 298 mOsm/kg (285-295); Potassium 4.6 mmol/L (3.5-5.1); Sodium 137 mmol/L (136-145)
[2021-02-25 13:10] LABS: CRP < 0.2 mg/dL (0.0-0.9)
== END 2021-02-25 12:46 | disposition home or self-care (01) ==
LOC: CHSHH 12:47
PROVIDERS: Visit Provider Internal Medicine Infectious Disease
DX: M86.10 Other acute osteomyelitis, unspecified site (principal); L03.115 Cellulitis of right lower limb
CPT/HCPCS: 80048; 85025; 86140

== ENCOUNTER 2021-03-23 07:58 | Outpatient (RCR) | payer OTHER, SELFPAY ==
--- NOTE | 2020-12-29 09:42 | PM.IMHP ---
H&P: HPI History of Present Illness Date/Time: 12/29/20 09:42 Chief Complaint: Right diabetic foot infection Narrative: 65-year-old gentleman returns to the [facility] for re-evaluation of right foot. He has a history of nail penetration to the plantar right foot. 3.5 weeks status post surgical debridement. He has been at home with home health. He finished his course of intravenous antibiotics yesterday. He presents with regular tennis shoes in place. Patient reports he has been quite active including mowing his yd with both a riding mower and push mower. Review of Systems Constitutional: Constitutional: Denies fever(s) Eyes: Eyes: Denies blurry vision ENT: Reports Normal hearing present Cardiovascular: Cardiovascular: Denies chest pain and Denies dyspnea Respiratory: Respiratory: Denies dyspnea and Denies wheezing Gastrointestinal: Gastrointestinal: Denies abdominal pain Genitourinary: Genitourinary: Denies urinary urgency Musculoskeletal: Musculoskeletal: Reports as per HPI and Reports numbness ( Toes both feet) Integumentary/Breasts: Skin/Breast: Reports wounds ( right plantar foot after stepping on nail) Neurologic: Reports Normal hearing present, Denies behavioral changes, Denies confusion and Denies convulsions Psychiatric: Psychiatric: Denies behavioral changes, Denies confusion and Denies hallucinations Endocrine: Endocrine: Denies heat intolerance Hematologic/Lymphatic: Hematologic/Lymphatic: Denies easy bleeding Allergic/Immunologic: Allergic/Immunologic: Denies wheezing PMFSH Past Medical History Medical History CAD (coronary artery disease) Status post CABG Cancer of transverse colon Status post right hemicolectomy Carpal tunnel syndrome Diabetes GERD (gastroesophageal reflux disease) HTN (hypertension) Surgical History Surgical History Finger amputee H/O hernia repair 2018 H/O right knee surgery Hiatal hernia with GERD 1989 History of hand surgery History of right hemicolectomy with ileocolic anastomsis in 2019 Hx of CABG Family History Family History Sibling Family history of malignant neoplasm Father Family history of chronic obstructive pulmonary disease Hypertension Heart disease Mother Hypertension Cancer Sibling Cancer Sibling Cancer Sibling Cancer Social History Social History Smoking status: Former smoker Tobacco type: cigarettes Second hand tobacco smoke exposure: No Additional smoking assessment comments: quit smoking over 30 years ago Alcohol intake: former Substance use: never Substance use type: does not use Gender identity (if verbalized by the patient): Male Spiritual care concerns: No Meds Home Medications and Allergies Home Medications Medication Instructions Recorded Confirmed Type aspirin 81 mg tablet,delayed 81 mg PO DAILY 09/24/19 12/04/20 History release acetaminophen [Mapap 650 mg PO Q6H PRN #60 tablet 12/02/20 12/04/20 Rx (acetaminophen)] sodium chloride 10 ml IV PUSH PRN PRN #150 ml 12/02/20 12/04/20 Rx vancomycin in 0.9 % sodium chl 2,000 mg IV Q12H #51 ml 12/02/20 12/04/20 Rx insulin glargine [Lantus Solostar 26 unit SUBCUT QAM #15 ml 12/07/20 Rx U-100 Insulin] metformin 500 mg PO BID #60 tablet 12/07/20 Rx silver [Silver-Sept] 1 applic TOPICAL DAILY #90 g 12/07/20 Rx silver sulfate-foam bandage 1 ea TOPICAL DAILY #5 ea 12/07/20 Rx [Mepilex AG] sodium chloride 1 syr IV PUSH PRN PRN #75 ml 12/07/20 Rx sodium chloride 1 syr IV PUSH PRN PRN #75 ml 12/07/20 Rx sodium chloride 1 syr IV PUSH Q8HR #75 ml 12/07/20 Rx Allergies Allergy/AdvReac Type Severity Reaction Status Date / Time No Known Allergies Allergy Verified 12/18/20 01:39
--- NOTE | 2020-12-29 09:53 | W.PM.PROC2 ---
Procedure Note - Detailed Date of Procedure 12/29/20 Pre-op Diagnosis diabetic ulcer right foot Post-op Diagnosis same Procedure Performed Excisional debridement right diabetic foot ulcer including skin, subcutaneous tissue and muscle. One sq cm Surgeon Blair Coreas MD Anesthesia none Indications 65-year-old uncontrolled diabetes with peripheral neuropathy. Right diabetic foot ulcer requires debridement. Description of Procedure Informed consent given. Correct extremity ensured. sterilized with alcohol prep solution. Fifteen blade knife used to sharply excise skin, subcutaneous tissue and muscle from the right plantar foot. Final wound 1 x 0.5 cm with 2.5 cm depth. Large amount of surrounding callus also debrided. Sterile dressing applied. Estimated Blood Loss 1 Tourniquet Time 0 Drains No Packing Yes Pathology none sent Complications None Condition stable Disposition other ( Home with family)
[2020-12-29 10:48] VITALS: BMI 23.8
--- NOTE | 2021-01-08 13:15 | PM.IMHP ---
H&P: HPI History of Present Illness Date/Time: 01/08/21 13:15 Chief Complaint: Right Foot Wound Narrative: 65-year-old male returns to the [facility] for re-evaluation of right foot. He has a history of nail penetration to the plantar right foot. 4.5 weeks status post surgical debridement. He has been at home with home health. He finished his course of intravenous antibiotics yesterday. He has been in a fracture boot for the last one week, compliant. He does report increase in wound size. No fever, chills, night sweats, nausea, vomiting or diarrhea. Review of Systems Constitutional: Constitutional: Denies fever(s) Eyes: Eyes: Denies blurry vision ENT: Reports Normal hearing present Cardiovascular: Cardiovascular: Denies chest pain and Denies dyspnea Respiratory: Respiratory: Denies dyspnea and Denies wheezing Gastrointestinal: Gastrointestinal: Denies abdominal pain Genitourinary: Genitourinary: Denies urinary urgency Musculoskeletal: Musculoskeletal: Reports as per HPI and Reports numbness ( Toes both feet) Integumentary/Breasts: Skin/Breast: Reports wounds ( right plantar foot after stepping on nail) Neurologic: Reports Normal hearing present, Denies behavioral changes, Denies confusion and Denies convulsions Psychiatric: Psychiatric: Denies behavioral changes, Denies confusion and Denies hallucinations Endocrine: Endocrine: Denies heat intolerance Hematologic/Lymphatic: Hematologic/Lymphatic: Denies easy bleeding Allergic/Immunologic: Allergic/Immunologic: Denies wheezing [facility] Past Medical History Medical History CAD (coronary artery disease) Status post CABG Cancer of transverse colon Status post right hemicolectomy Carpal tunnel syndrome Diabetes GERD (gastroesophageal reflux disease) HTN (hypertension) Surgical History Surgical History Finger amputee H/O hernia repair 2018 H/O right knee surgery Hiatal hernia with GERD 1989 History of hand surgery History of right hemicolectomy with ileocolic anastomsis in 2019 Hx of CABG Family History Family History Sibling Family history of malignant neoplasm Father Family history of chronic obstructive pulmonary disease Hypertension Heart disease Mother Hypertension Cancer Sibling Cancer Sibling Cancer Sibling Cancer Social History Social History Smoking status: Former smoker Tobacco type: cigarettes Second hand tobacco smoke exposure: No Additional smoking assessment comments: quit smoking over 30 years ago Alcohol intake: former Substance use: never Substance use type: does not use Gender identity (if verbalized by the patient): Male Spiritual care concerns: No Meds Home Medications and Allergies Home Medications Medication Instructions Recorded Confirmed Type aspirin 81 mg tablet,delayed 81 mg PO DAILY 09/24/19 12/29/20 History release acetaminophen [Mapap 650 mg PO Q6H PRN #60 tablet 12/02/20 12/29/20 Rx (acetaminophen)] sodium chloride 10 ml IV PUSH PRN PRN #150 ml 12/02/20 12/29/20 Rx vancomycin in 0.9 % sodium chl 2,000 mg IV Q12H #51 ml 12/02/20 12/29/20 Rx insulin glargine [Lantus Solostar 26 unit SUBCUT QAM #15 ml 12/07/20 12/29/20 Rx U-100 Insulin] metformin 500 mg PO BID #60 tablet 12/07/20 12/29/20 Rx silver [Silver-Sept] 1 applic TOPICAL DAILY #90 g 12/07/20 12/29/20 Rx silver sulfate-foam bandage 1 ea TOPICAL DAILY #5 ea 12/07/20 12/29/20 Rx [Mepilex AG] sodium chloride 1 syr IV PUSH PRN PRN #75 ml 12/07/20 12/29/20 Rx sodium chloride 1 syr IV PUSH PRN PRN #75 ml 12/07/20 12/29/20 Rx sodium chloride 1 syr IV PUSH Q8HR #75 ml 12/07/20 12/29/20 Rx Allergies Allergy/AdvReac Type Severity Reaction Status Date / Time No K
--- NOTE | 2021-01-12 09:51 | PM.IMHP ---
H&P: HPI History of Present Illness Date/Time: 01/12/21 09:51 Chief Complaint: Right diabetic foot ulcer Narrative: 65-year-old male presents to the [facility] today for re-evaluation of right plantar foot wound and new onset interspace wound noted on Monday of last week. Patient is 5 weeks, 3 days status post debridement by orthopedic surgeon, Dr. Saleem. Dr. Coreas assumed care status post surgical intervention at the request of Dr. Saleem. pathology at that time did not reveal any organisms. He was discharged on 4 weeks of IV antibiotics and finished antibiotics on December 27. It was noted the patient had a new wound between the 3rd and 4th toes last week on Monday. At that time, he denies fever, chills, night sweats, nausea, vomiting or diarrhea. He was instructed to begin a new dressing change with Aquacel Ag rope packing and to follow-up on Monday. Patient does present today with now worsening of his symptoms. He has a new onset ulcer on the dorsum of the right foot between the 3rd and 4th toes. There is some erythema extending into the dorsum of the forefoot as well. He continues to deny fever, chills, night sweats, nausea, vomiting or diarrhea. He reports will maintain blood glucose levels in the 80s. Review of Systems Constitutional: Constitutional: Denies fever(s) Eyes: Eyes: Denies blurry vision ENT: Reports Normal hearing present Cardiovascular: Cardiovascular: Denies chest pain and Denies dyspnea Respiratory: Respiratory: Denies dyspnea and Denies wheezing Gastrointestinal: Gastrointestinal: Denies abdominal pain Genitourinary: Genitourinary: Denies urinary urgency Musculoskeletal: Musculoskeletal: Reports as per HPI and Reports numbness ( Toes both feet) Integumentary/Breasts: Skin/Breast: Reports wounds ( right plantar foot after stepping on nail) Neurologic: Reports Normal hearing present, Denies behavioral changes, Denies confusion and Denies convulsions Psychiatric: Psychiatric: Denies behavioral changes, Denies confusion and Denies hallucinations Endocrine: Endocrine: Denies heat intolerance Hematologic/Lymphatic: Hematologic/Lymphatic: Denies easy bleeding Allergic/Immunologic: Allergic/Immunologic: Denies wheezing PMFSH Past Medical History Medical History CAD (coronary artery disease) Status post CABG Cancer of transverse colon Status post right hemicolectomy Carpal tunnel syndrome Diabetes GERD (gastroesophageal reflux disease) HTN (hypertension) Surgical History Surgical History Finger amputee H/O hernia repair 2018 H/O right knee surgery Hiatal hernia with GERD 1990 History of hand surgery History of right hemicolectomy with ileocolic anastomsis in 2019 Hx of CABG Family History Family History Sibling Family history of malignant neoplasm Father Family history of chronic obstructive pulmonary disease Hypertension Heart disease Mother Hypertension Cancer Sibling Cancer Sibling Cancer Sibling Cancer Social History Social History Smoking status: Former smoker Tobacco type: cigarettes Second hand tobacco smoke exposure: No Additional smoking assessment comments: quit smoking over 30 years ago Alcohol intake: former Substance use: never Substance use type: does not use Gender identity (if verbalized by the patient): Male Spiritual care concerns: No Meds Home Medications and Allergies Home Medications Medication Instructions Recorded Confirmed Type aspirin 81 mg tablet,delayed 81 mg PO DAILY 09/24/19 12/29/20 History release acetaminophen [Mapap 650 mg PO Q6H PRN #60 tablet 12/02/20 12/29/20 Rx (acetaminophen)] sodium chloride 10 ml IV PUSH PRN PRN #150 ml 12/02/20 12/29/20 Rx vancomycin in 0.9
[2021-01-12 10:19] LABS: Glucose Point of Care 106 mg/dl (65-105)
--- NOTE | 2021-01-26 09:17 | P.PNOP_ITS ---
Progress Note: A&P Assessment and Plan (1) Puncture wound of foot, right: Qualifiers: Encounter type: subsequent encounter Qualified Code(s): S91.331D - Puncture wound without foreign body, right foot, subsequent encounter Code(s): S91.331A - Puncture wound without foreign body, right foot, initial encounter Status: Acute Assessment and Plan: Two weeks status post debridement and excision of osteomyelitis. Surgical findings and path reports reviewed with patient and family. It appears he has been too active and dependent on the foot. We discussed this in depth today. He needs to stay off the foot and elevated above the chest level at least 20 minutes out of each hour. Activity only for necessary daily care. Wound was dressed with Aquacel rope for the webspace with gauze wrap. They are to do that daily. Continue with IV antibiotics. Follow-up in 1 week for suture removal. Continue with fracture boot for protection. (2) Foot abscess, right: Code(s): L02.611 - Cutaneous abscess of right foot Status: Acute Subjective Subjective Date/Time Seen: 01/26/21 09:17 Post Op day: 15 Principal diagnosis: Right foot infection after nail puncture Interval history: 2 weeks status post excision of osteomyelitis right foot with closure of wounds. Patient presents for follow-up [facility]. [facility] reports he has been very active. At each visit he has been up doing daily chores with fracture boot on. He reports no interim complaints. Exam Const: General: healthy appearing; No in distress or confusion Orientation/consciousness: patient oriented x3 and No confusion HENMT: Head: normal to inspection, normocephalic and atraumatic Eyes: Conjunctivae: conjunctivae normal Sclera: sclerae normal Resp: Effort & Inspection: normal respiratory effort and no audible wheezes Neuro: General: patient oriented x3 and No confusion Extrem: Other: Right foot dressing removed. The incision at the 3rd webspace has some mild dehiscence. There was a lot of callus on the bottom of the foot which we debrided with 15 blade knife today. This stitches are still intact. There is moderate swelling to the 3rd and 4th toes with good capillary refill. No active drainage from the wound. No erythema or increased warmth. Negative Homans sign. Psych: Affect: normal affect Objective Data Meds/Results Medications: Active Medications Generic Name Dose Route Start Last Admin Trade Name Freq PRN Reason Stop Dose Admin Silver Nitrate 1 each 12/29/20 11:01 Aquacel Ag Advantage Bandage (*Bkc) TOPICAL 03/30/21 23:55 PRN PRN Wound Care Wound Care/Dressing Products 1 each 12/29/20 11:02 Foam Bandage (Mepilex 4x4) Bandage TOPICAL 03/30/21 23:55 PRN PRN Wound Care Wound Care/Dressing Products 1 patch 01/08/21 10:05 Mepilex Transfer Drsg 6x8 TOPICAL 04/09/21 23:55 PRN PRN Wound Care
--- NOTE | 2021-02-02 09:56 | PM.PNORT ---
Progress Note: A&P Assessment and Plan (1) Puncture wound of foot, right: Qualifiers: Encounter type: subsequent encounter Qualified Code(s): S91.331D - Puncture wound without foreign body, right foot, subsequent encounter Code(s): S91.331A - Puncture wound without foreign body, right foot, initial encounter Status: Acute Assessment and Plan: 2 weeks, 5 days s/p debridement and excision of osteomyelitis. All sutures removed today. Plantar foot with large amount of callus formation debrided under sterile conditions with #15 blade knife, tolerated well. Underlying ulcer on the plantar aspect meaures 0.5x0.1x1.0cm. Small wound dehiscence in the webspace of the 3rd/4th toes. Dorsal wound closed. Begin daily dressing changes with silver gel, gauze between toes, mepilex foam to plantar foot. Continue IV antibiotics under direction of Dr. Lau. PICC line in place. Continue fracture boot. Activity restrictions reviewed. Follow up in 1 week. (2) Foot abscess, right: Code(s): L02.611 - Cutaneous abscess of right foot Status: Acute Subjective Subjective Date/Time Seen: 02/02/21 09:56 Interval history: 2 weeks, 5 days status post excision of osteomyelitis right foot with closure of wounds. Patient presents for follow-up [facility]. Home health reports patient has not been wearing boot and is working outside again. He reports no interim complaints. Review of Systems Constitutional: Constitutional: Denies fever(s) Eyes: Eyes: Denies blurry vision ENT: Reports Normal hearing present Cardiovascular: Cardiovascular: Denies chest pain and Denies dyspnea Respiratory: Respiratory: Denies dyspnea and Denies wheezing Gastrointestinal: Gastrointestinal: Denies abdominal pain Genitourinary: Genitourinary: Denies urinary urgency Musculoskeletal: Musculoskeletal: Reports as per HPI and Reports numbness ( Toes both feet) Integumentary/Breasts: Skin/Breast: Reports wounds ( right plantar foot after stepping on nail) Neurologic: Reports Normal hearing present, Denies behavioral changes, Denies confusion and Denies convulsions Psychiatric: Psychiatric: Denies behavioral changes, Denies confusion and Denies hallucinations Endocrine: Endocrine: Denies heat intolerance Hematologic/Lymphatic: Hematologic/Lymphatic: Denies easy bleeding Allergic/Immunologic: Allergic/Immunologic: Denies wheezing Exam Const: General: healthy appearing; No in distress or confusion Orientation/consciousness: patient oriented x3 and No confusion HENMT: Head: normal to inspection, normocephalic and atraumatic Eyes: Conjunctivae: conjunctivae normal Sclera: sclerae normal Resp: Effort & Inspection: normal respiratory effort and no audible wheezes GI: Inspection: non-distended GI Palp: Yes Soft to palpation and No Tenderness to palpation present (GI) : Male General Exam: Yes normal external exam Skin: Wounds: wounds noted Neuro: General: patient oriented x3, gait normal and No confusion Cognition (Neuro): normal cognition Extrem: Other: Right foot dressing removed. Sutures removed from dorsal forefoot, webspace and plantar foot. The incision at the 3rd webspace has some mild dehiscence. Callus on the plantar aspect of the foot debrided under sterile conditions with #15 blade knife. Underlying ulcer measures 0.5x0.1x1.0cm. Improvement in swelling throughout foot. Psych: Affect: normal affect Objective Data Meds/Results Medications: Active Medications Generic Name Dose Route Start Last Admin Trade Name Freq PRN Reason Stop Dose Admin Silver Nitrate 1 each 12/29/20 11:01 Aquacel Ag Advantage Bandage (*Bkc) TOPICAL 03/30/21 23:55 PRN PRN Wound Care Wound Care/Dressing Products 1 each 12/29/20 11:02 Foam Bandage (Mepilex 4x4) Bandage TOPICAL 03/30/21 23:55 PRN PRN Wound Care Wound Care/Dressing Products 1 patch 01/08/21 10:05 Me
--- NOTE | 2021-02-09 09:16 | PM.PNORT ---
Progress Note: A&P Assessment and Plan (1) Puncture wound of foot, right: Qualifiers: Encounter type: subsequent encounter Qualified Code(s): S91.331D - Puncture wound without foreign body, right foot, subsequent encounter Code(s): S91.331A - Puncture wound without foreign body, right foot, initial encounter Status: Acute Assessment and Plan: 3 weeks, 6 days s/p debridement and excision of osteomyelitis. Plantar foot continued underlying ulcer on the plantar aspect, now measuring 0.4x0.1x0.7cm. Some improvement in depth. Ulcer between the 3rd/4th ray measures 0.2x0.2x1.3 cm. Hypergranulation noted, treated with silver nitrate. Dorsal wound remains closed. Continue daily dressing changes with silver rope and Mepilex foam to plantar wound, silver gel between toes/gauze. Continue IV antibiotics under direction of Dr. Lau. PICC line in place. Continue fracture boot. Activity restrictions reviewed. Follow up in 1 week for dressing change. (2) Foot abscess, right: Code(s): L02.611 - Cutaneous abscess of right foot Status: Acute Subjective Subjective Date/Time Seen: 02/09/21 09:16 Interval history: Three weeks, 6 days status post partial excision phalanx of the 3rd and 4th toe and debridement. No new concerns today. He has been performing daily dressing changes. He denies fever, chills, night sweats, nausea, vomiting or diarrhea. He still has drainage. Is still on IV antibiotics per Dr. lau. Review of Systems Constitutional: Constitutional: Denies fever(s) Eyes: Eyes: Denies blurry vision ENT: Reports Normal hearing present Cardiovascular: Cardiovascular: Denies chest pain and Denies dyspnea Respiratory: Respiratory: Denies dyspnea and Denies wheezing Gastrointestinal: Gastrointestinal: Denies abdominal pain Genitourinary: Genitourinary: Denies urinary urgency Musculoskeletal: Musculoskeletal: Reports as per HPI and Reports numbness ( Toes both feet) Integumentary/Breasts: Skin/Breast: Reports wounds ( right plantar foot after stepping on nail) Neurologic: Reports Normal hearing present, Denies behavioral changes, Denies confusion and Denies convulsions Psychiatric: Psychiatric: Denies behavioral changes, Denies confusion and Denies hallucinations Endocrine: Endocrine: Denies heat intolerance Hematologic/Lymphatic: Hematologic/Lymphatic: Denies easy bleeding Allergic/Immunologic: Allergic/Immunologic: Denies wheezing Exam Const: General: healthy appearing; No in distress or confusion Orientation/consciousness: patient oriented x3 and No confusion HENMT: Head: normal to inspection, normocephalic and atraumatic Eyes: Conjunctivae: conjunctivae normal Sclera: sclerae normal Resp: Effort & Inspection: normal respiratory effort and no audible wheezes GI: Inspection: non-distended GI Palp: Yes Soft to palpation and No Tenderness to palpation present (GI) : Male General Exam: Yes normal external exam Skin: Wounds: wounds noted Neuro: General: patient oriented x3, gait normal and No confusion Cognition (Neuro): normal cognition Extrem: Other: Right foot dressing removed. Sutures removed from dorsal forefoot, webspace and plantar foot. The incision at the 3rd webspace has some mild dehiscence. Callus on the plantar aspect of the foot debrided under sterile conditions with #15 blade knife. Underlying ulcer measures 0.5x0.1x1.0cm. Improvement in swelling throughout foot. Psych: Affect: normal affect Objective Data Meds/Results Medications: Active Medications Generic Name Dose Route Start Last Admin Trade Name Freq PRN Reason Stop Dose Admin Silver Nitrate 1 each 12/29/20 11:01 Aquacel Ag Advantage Bandage (*Bkc) TOPICAL 03/30/21 23:55 PRN PRN Wound Care Wound Care/Dressing Products 1 each 12/29/20 11:02 Foam Bandage (Mepilex 4x4) Bandage TOPICAL 03/30/21 23:55 PRN PRN Wound Care Wound Care/Dressing Products
--- NOTE | 2021-02-16 09:51 | PM.PNORT ---
Progress Note: A&P Assessment and Plan (1) Puncture wound of foot, right: Qualifiers: Encounter type: subsequent encounter Qualified Code(s): S91.331D - Puncture wound without foreign body, right foot, subsequent encounter Code(s): S91.331A - Puncture wound without foreign body, right foot, initial encounter Status: Acute Assessment and Plan: 4 weeks, 6 days s/p debridement and excision of osteomyelitis. Right foot with ulcer on the plantar aspect with communication to ulcer between the 3rd/4th ray. Hypergranulation noted over wound bed between 3rd/4th ray, treated with silver nitrate. No signs of worsening infection. Patient on IV antibiotics through 02/26. Appt with Dr. Lau today. Recommended addition of Idalmis today. Continue Silver gel and Mepilex foam. Patient would benefit from graft application and TCC to expedite healing and provide additional pressure relief. Continue fracture boot at this time. Reviewed PWB and activity restrictions. Follow up in 1 week. Hopeful for graft application and TCC at that time. (2) Foot abscess, right: Code(s): L02.611 - Cutaneous abscess of right foot Status: Acute Assessment and Plan: Continue IV antibiotics by Dr. Lau. Subjective Subjective Date/Time Seen: 02/16/21 09:51 Interval history: 4 weeks, 6 days status post partial excision phalanx of the 3rd and 4th toe and debridement. No new concerns today. He has been performing daily dressing changes with assistance of his and HH. He denies fever, chills, night sweats, nausea, vomiting or diarrhea. He still has drainage. Is still on IV antibiotics per Dr. Lau through 02/26. Appt today with Dr. Lau Review of Systems Constitutional: Constitutional: Denies fever(s) Eyes: Eyes: Denies blurry vision ENT: Reports Normal hearing present Cardiovascular: Cardiovascular: Denies chest pain and Denies dyspnea Respiratory: Respiratory: Denies dyspnea and Denies wheezing Gastrointestinal: Gastrointestinal: Denies abdominal pain Genitourinary: Genitourinary: Denies urinary urgency Musculoskeletal: Musculoskeletal: Reports as per HPI and Reports numbness ( Toes both feet) Integumentary/Breasts: Skin/Breast: Reports wounds ( right plantar foot after stepping on nail) Neurologic: Reports Normal hearing present, Denies behavioral changes, Denies confusion and Denies convulsions Psychiatric: Psychiatric: Denies behavioral changes, Denies confusion and Denies hallucinations Endocrine: Endocrine: Denies heat intolerance Hematologic/Lymphatic: Hematologic/Lymphatic: Denies easy bleeding Allergic/Immunologic: Allergic/Immunologic: Denies wheezing Exam Const: General: healthy appearing; No in distress or confusion Orientation/consciousness: patient oriented x3 and No confusion HENMT: Head: normal to inspection, normocephalic and atraumatic Eyes: Conjunctivae: conjunctivae normal Sclera: sclerae normal Resp: Effort & Inspection: normal respiratory effort and no audible wheezes GI: Inspection: non-distended GI Palp: Yes Soft to palpation and No Tenderness to palpation present (GI) : Male General Exam: Yes normal external exam Skin: Wounds: wounds noted Neuro: General: patient oriented x3, gait normal and No confusion Cognition (Neuro): normal cognition Extrem: Other: Right foot dressing removed. Webspace between 3rd/4th ray with wound measuring 0.3x0.2 with a depth of 2.1 communicating with the plantar ulcer which measures 0.5x0.2cm. No purulence. No malodor. Mild serosanguineous drainage. Moves toes. Decreased sensation at baseline. Palpable pedal pulse. Minimal swelling. Surrounding tissue benign. Psych: Affect: normal affect Objective Data Meds/Results Medications: Active Medications Generic Name Dose Route Start Last Admin Trade Name Freq PRN Reason Stop Dose Admin Silver Nitrate 1 each 12/29/20 11:01 [facility] Advantage Bandage (
--- NOTE | 2021-02-23 09:43 | PM.PNORT ---
Progress Note: A&P Assessment and Plan (1) Puncture wound of foot, right: Qualifiers: Encounter type: subsequent encounter Qualified Code(s): S91.331D - Puncture wound without foreign body, right foot, subsequent encounter Code(s): S91.331A - Puncture wound without foreign body, right foot, initial encounter Status: Acute Assessment and Plan: 5 weeks, 5 days s/p debridement and excision of osteomyelitis. Right foot with ulcer on the plantar aspect with ulcer between the 3rd/4th ray. No signs of worsening infection. Patient on IV antibiotics through 02/26. Recommended continue Idalmis today. Continue Mepilex foam. Patient would benefit from graft application and TCC to expedite healing and provide additional pressure relief. declined by insurance. Continue fracture boot at this time. Reviewed PWB and activity restrictions. Follow up in 1 week. Patient and to notify office or wound clinic immediately for any change in condition, worsening or signs of infection. They verbalized understanding. (2) Foot abscess, right: Code(s): L02.611 - Cutaneous abscess of right foot Status: Acute Assessment and Plan: Continue IV antibiotics by Dr. Lau. Scheduled to discontinue February 26 Subjective Subjective Date/Time Seen: 02/23/21 09:43 Principal diagnosis: right foot osteomyelitis, diabetic foot ulcer Interval history: postoperative visit [facility], 5.5 weeks status post excision of osteomyelitis right foot and debridement. Daily dressing changes with Idalmis. No interim complaints. Exam Const: General: healthy appearing; No in distress or confusion Orientation/consciousness: patient oriented x3 and No confusion HENMT: Head: normal to inspection, normocephalic and atraumatic Eyes: Conjunctivae: conjunctivae normal Sclera: sclerae normal Resp: Effort & Inspection: normal respiratory effort and no audible wheezes GI: Inspection: non-distended GI Palp: Yes Soft to palpation and No Tenderness to palpation present (GI) : Male General Exam: Yes normal external exam Skin: Wounds: wounds noted Neuro: General: patient oriented x3, gait normal and No confusion Cognition (Neuro): normal cognition Extrem: Other: Right foot dressing removed. Webspace between 3rd/4th ray with wound measuring 0.2x0.2 with a depth of 1cm. No communicating with the plantar ulcer. plantar ulcer measures 0.5 x 0.2 with 1.6 cm depth. No purulence. No malodor. Mild sanguineous drainage. Moves toes. Decreased sensation at baseline. Palpable pedal pulse. Moderate swelling. Surrounding tissue benign. Ecchymosis of the 2nd toenail. Patient states contusion from object dropped Psych: Affect: normal affect Objective Data Meds/Results Medications: Active Medications Generic Name Dose Route Start Last Admin Trade Name Freq PRN Reason Stop Dose Admin Silver Nitrate 1 each 12/29/20 11:01 [employer] Advantage Bandage (*Bkc) TOPICAL 03/30/21 23:55 PRN PRN Wound Care Wound Care/Dressing Products 1 each 12/29/20 11:02 Foam Bandage (Mepilex 4x4) Bandage TOPICAL 03/30/21 23:55 PRN PRN Wound Care Wound Care/Dressing Products 1 patch 01/08/21 10:05 Mepilex Transfer Drsg 6x8 TOPICAL 04/09/21 23:55 PRN PRN Wound Care
--- NOTE | 2021-03-02 09:55 | PM.PNORT ---
Progress Note: A&P Assessment and Plan (1) Puncture wound of foot, right: Qualifiers: Encounter type: subsequent encounter Qualified Code(s): S91.331D - Puncture wound without foreign body, right foot, subsequent encounter Code(s): S91.331A - Puncture wound without foreign body, right foot, initial encounter Status: Acute Assessment and Plan: 6 weeks, 5 days s/p debridement and excision of osteomyelitis. Right foot with ulcer on the plantar aspect with ulcer between the 3rd/4th ray. No signs of worsening infection. Patient has completed course of IV antibiotics. Recommended continuation of Idalmis, Mepilex foam, cover dry. Patient would benefit from graft application and TCC to expedite healing and provide additional pressure relief. declined by insurance. Continue fracture boot at this time. Reviewed PWB and activity restrictions. Follow up in 1 week. Patient and to notify office or wound clinic immediately for any change in condition, worsening or signs of infection. They verbalized understanding. (2) Foot abscess, right: Code(s): L02.611 - Cutaneous abscess of right foot Status: Acute Assessment and Plan: Patient has completed course of IV antibiotics. No indication for oral antibiotics at this time. Subjective Subjective Date/Time Seen: 03/02/21 09:55 Interval history: 6 weeks, 5 days status post partial excision of phalanx of the 3rd and 4th toe and debridement. Patient has now completed his dose of IV antibiotics under the direction of Dr. bourne. He completed this dose on the 26 of February. No new signs of infection right now. No fever, chills, night sweats, nausea, vomiting or diarrhea. Review of Systems Constitutional: Constitutional: Denies fever(s) Eyes: Eyes: Denies blurry vision ENT: Reports Normal hearing present Cardiovascular: Cardiovascular: Denies chest pain and Denies dyspnea Respiratory: Respiratory: Denies dyspnea and Denies wheezing Gastrointestinal: Gastrointestinal: Denies abdominal pain Genitourinary: Genitourinary: Denies urinary urgency Musculoskeletal: Musculoskeletal: Reports as per HPI and Reports numbness ( Toes both feet) Integumentary/Breasts: Skin/Breast: Reports wounds ( right plantar foot after stepping on nail) Neurologic: Reports Normal hearing present, Denies behavioral changes, Denies confusion and Denies convulsions Psychiatric: Psychiatric: Denies behavioral changes, Denies confusion and Denies hallucinations Endocrine: Endocrine: Denies heat intolerance Hematologic/Lymphatic: Hematologic/Lymphatic: Denies easy bleeding Allergic/Immunologic: Allergic/Immunologic: Denies wheezing Exam Const: General: healthy appearing; No in distress or confusion Orientation/consciousness: patient oriented x3 and No confusion HENMT: Head: normal to inspection, normocephalic and atraumatic Eyes: Conjunctivae: conjunctivae normal Sclera: sclerae normal Resp: Effort & Inspection: normal respiratory effort and no audible wheezes GI: Inspection: non-distended GI Palp: Yes Soft to palpation and No Tenderness to palpation present (GI) : Male General Exam: Yes normal external exam Skin: Wounds: wounds noted Neuro: General: patient oriented x3, gait normal and No confusion Cognition (Neuro): normal cognition Extrem: Other: Right foot dressing removed. Webspace between 3rd/4th ray with wound measuring 0.2x0.2 with a depth of 1.1 cm. No communicating with the plantar ulcer. plantar ulcer measures 0.3x0.3 with 1.5 cm depth. No purulence. No malodor. Mild sanguineous drainage. Moves toes. Decreased sensation at baseline. Palpable pedal pulse. Moderate swelling. Surrounding tissue benign. Ecchymosis of the 2nd toenail. Patient states contusion from object dropped Psych: Affect: normal affect Objective Data Meds/Results Medications: Active Medications Generic Name Dose Route Start Last Admin Trade Name Jaleel
--- NOTE | 2021-03-09 09:26 | PM.PNORT ---
Progress Note: A&P Assessment and Plan (1) Puncture wound of foot, right: Qualifiers: Encounter type: subsequent encounter Qualified Code(s): S91.331D - Puncture wound without foreign body, right foot, subsequent encounter Code(s): S91.331A - Puncture wound without foreign body, right foot, initial encounter Status: Acute Assessment and Plan: 7 weeks, 5 days s/p debridement and excision of osteomyelitis. Right foot with ulcer on the plantar aspect and ulcer between the 3rd/4th ray. No signs of worsening infection. Patient and are performing daily home dressing changes. They have had home health on board since date of discharge however at this time they no longer feel that they are necessary. We will discontinue home health at this time. Patient to continue daily dressing changes with Idalmis. Add silver gel. Patient would benefit from additional pressure offloading for expediting wound closure however he is not a candidate for total contact casting due to his insurance. Patient to continue fracture boot at this time. Reviewed activity restrictions. Patient to follow-up in 2 weeks for re-evaluation. (2) Foot abscess, right: Code(s): L02.611 - Cutaneous abscess of right foot Status: Acute Assessment and Plan: The patient has completed a full course of IV antibiotics. No signs of infection at this time. Patient and verbalized understanding of signs and symptoms to report to the emergency room. Subjective Subjective Date/Time Seen: 03/09/21 09:26 Interval history: 7 weeks, 5 days status post partial excision of phalanx of the 3rd and 4th toe and debridement. No new concerns. No signs of infection. No longer on IV antibiotics. Feels home health should be discontinued as they are handling dressing changes independently. Review of Systems Constitutional: Constitutional: Denies fever(s) Eyes: Eyes: Denies blurry vision ENT: Reports Normal hearing present Cardiovascular: Cardiovascular: Denies chest pain and Denies dyspnea Respiratory: Respiratory: Denies dyspnea and Denies wheezing Gastrointestinal: Gastrointestinal: Denies abdominal pain Genitourinary: Genitourinary: Denies urinary urgency Musculoskeletal: Musculoskeletal: Reports as per HPI and Reports numbness ( Toes both feet) Integumentary/Breasts: Skin/Breast: Reports wounds ( right plantar foot after stepping on nail) Neurologic: Reports Normal hearing present, Denies behavioral changes, Denies confusion and Denies convulsions Psychiatric: Psychiatric: Denies behavioral changes, Denies confusion and Denies hallucinations Endocrine: Endocrine: Denies heat intolerance Hematologic/Lymphatic: Hematologic/Lymphatic: Denies easy bleeding Allergic/Immunologic: Allergic/Immunologic: Denies wheezing Exam Const: General: healthy appearing; No in distress or confusion Orientation/consciousness: patient oriented x3 and No confusion HENMT: Head: normal to inspection, normocephalic and atraumatic Eyes: Conjunctivae: conjunctivae normal Sclera: sclerae normal Resp: Effort & Inspection: normal respiratory effort and no audible wheezes GI: Inspection: non-distended GI Palp: Yes Soft to palpation and No Tenderness to palpation present (GI) : Male General Exam: Yes normal external exam Skin: Wounds: wounds noted Neuro: General: patient oriented x3, gait normal and No confusion Cognition (Neuro): normal cognition Extrem: Other: Right foot dressing removed. Webspace between 3rd/4th ray with wound measuring 0.1x0.1 with a depth of 1.1 cm. No communicating with the plantar ulcer. Plantar ulcer measures 0.2x0.2 with 1.1 cm depth. No purulence. No malodor. Mild sanguineous drainage. Moves toes. Decreased sensation at baseline. Palpable pedal pulse. Moderate swelling. Surrounding tissue benign. Ecchymosis of the 2nd toenail. Patient states contusion from object dropped Psych: Affect: normal affect
--- NOTE | 2021-03-23 09:43 | PM.PNORT ---
Progress Note: A&P Assessment and Plan (1) Puncture wound of foot, right: Qualifiers: Encounter type: subsequent encounter Qualified Code(s): S91.331D - Puncture wound without foreign body, right foot, subsequent encounter Code(s): S91.331A - Puncture wound without foreign body, right foot, initial encounter Status: Acute Assessment and Plan: 9 weeks, 5 days s/p debridement and excision of osteomyelitis. Right foot with ulcer on the plantar aspect and ulcer between the 3rd/4th ray. Very little improvement over the last several weeks. No signs of worsening infection however. Patient is not a candidate for outpatient grafts or total contact casting for pressure offloading due to insurance constraints. Plan to transition dressing changes at this time to Idalmis only in the wound bed between the toes and refrain from packing of the plantar ulcer. Continue Mepilex foam on the plantar ulcer. Patient follow-up in 1 week for re-evaluation. If continued stall in improvement of wound dimensions, discussed with patient and family that he may benefit from return to operating room for graft application and splinting. Patient may then require multiple weeks of splinting to increased pressure offloading. Patient and to consider. Follow-up in 1 week. (2) Foot abscess, right: Code(s): L02.611 - Cutaneous abscess of right foot Status: Acute Assessment and Plan: The patient has completed a full course of IV antibiotics. No signs of infection at this time. Patient and verbalized understanding of signs and symptoms to report to the emergency room. Subjective Subjective Date/Time Seen: 03/23/21 09:43 Interval history: 9 weeks, 5 days s/p right foot infection excisional debridement, excision of osteomyelitis 3rd and 4th proximal phalanx. Patient has been performing daily dressing changes with Idalmis to both depths of the wound. He is no longer on antibiotics. He does still have home health active however they are no longer assisting with supplies and dressing changes. They are set to be discontinued. He denies fever, chills, night sweats, nausea, vomiting or diarrhea. Review of Systems Constitutional: Constitutional: Denies fever(s) Eyes: Eyes: Denies blurry vision ENT: Reports Normal hearing present Cardiovascular: Cardiovascular: Denies chest pain and Denies dyspnea Respiratory: Respiratory: Denies dyspnea and Denies wheezing Gastrointestinal: Gastrointestinal: Denies abdominal pain Genitourinary: Genitourinary: Denies urinary urgency Musculoskeletal: Musculoskeletal: Reports as per HPI and Reports numbness ( Toes both feet) Integumentary/Breasts: Skin/Breast: Reports wounds ( right plantar foot after stepping on nail) Neurologic: Reports Normal hearing present, Denies behavioral changes, Denies confusion and Denies convulsions Psychiatric: Psychiatric: Denies behavioral changes, Denies confusion and Denies hallucinations Endocrine: Endocrine: Denies heat intolerance Hematologic/Lymphatic: Hematologic/Lymphatic: Denies easy bleeding Allergic/Immunologic: Allergic/Immunologic: Denies wheezing Exam Const: General: healthy appearing; No in distress or confusion Orientation/consciousness: patient oriented x3 and No confusion HENMT: Head: normal to inspection, normocephalic and atraumatic Eyes: Conjunctivae: conjunctivae normal Sclera: sclerae normal Resp: Effort & Inspection: normal respiratory effort and no audible wheezes GI: Inspection: non-distended GI Palp: Yes Soft to palpation and No Tenderness to palpation present (GI) : Male General Exam: Yes normal external exam Skin: Wounds: wounds noted Neuro: General: patient oriented x3, gait normal and No confusion Cognition (Neuro): normal cognition Extrem: Other: Right foot dressing removed. Webspace between 3rd/4th ray with wound measuring 0.2x0.2 with a depth of 1.2 cm. Not communicating with the plantar
== END 2021-03-29 23:59 | disposition home or self-care (01) ==
LOC: ANHWOC 07:58
PROVIDERS: PCP Family Medicine; Visit Provider Nurse Practitioner Family
DX: E11.621 Type 2 diabetes mellitus with foot ulcer (principal); L97.412 Non-pressure chronic ulcer of right heel and midfoot with fat layer exposed
CPT/HCPCS: 11042; 82948; 99212; 99213; G0463; J2250; J3010

== ENCOUNTER 2021-04-20 07:28 | Outpatient (RCR) | payer BC, OTHER, SELFPAY ==
--- NOTE | 2021-04-06 10:15 | P.PNOP_ITS ---
Subjective Subjective Date/Time Seen: 04/06/21 10:15
--- NOTE | 2021-04-06 10:15 | PM.PNORT ---
Subjective Subjective Date/Time Seen: 04/06/21 10:15
--- NOTE | 2021-04-06 11:56 | PM.IMHP ---
H&P: HPI History of Present Illness Date/Time: 04/06/21 11:56 Chief Complaint: right diabetic foot ulcer status post surgical intervention. Narrative: 11 weeks, 5 days s/p right foot infection excisional debridement, excision of osteomyelitis 3rd and 4th proximal phalanx. Patient has been performing daily dressing changes with Idalmis to the wound between the 3rd/4th webspace and mepilex foam to plantar foot wound. He denies fever, chills, night sweats, nausea, vomiting or diarrhea. Review of Systems Review of Systems: All systems reviewed & are unremarkable except as noted in HPI and below PMFSH Past Medical History Medical History CAD (coronary artery disease) Status post CABG Cancer of transverse colon Status post right hemicolectomy Carpal tunnel syndrome Diabetes GERD (gastroesophageal reflux disease) HTN (hypertension) Surgical History Surgical History Finger amputee After crushing injury to right pointer finger H/O hernia repair 2018 H/O right knee surgery Hiatal hernia with GERD 1989 History of carpal tunnel release Right hand History of hand surgery History of right hemicolectomy with ileocolic anastomsis in 2019 Hx of CABG Family History Family History Sibling Family history of malignant neoplasm Father Family history of chronic obstructive pulmonary disease Hypertension Heart disease Mother Hypertension Cancer Sibling Cancer Sibling Cancer Sibling Cancer Social History Social History Social History: The patient is and lives with his . He has 4 children. The is the durable power banking attorney for healthcare. The patient is a full code. The patient is a former smoker. He does not use any alcohol marijuana or illicit drugs. He was on disability and is now officially retired. Years smoked: 10 Smoking status: Former smoker Tobacco type: cigarettes Second hand tobacco smoke exposure: No Additional smoking assessment comments: quit smoking over 30 years ago Alcohol intake: unknown Substance use: never Substance use type: does not use Gender identity (if verbalized by the patient): Male Spiritual care concerns: No Meds Home Medications and Allergies Home Medications Medication Instructions Recorded Confirmed Type aspirin 81 mg tablet,delayed 81 mg PO DAILY 09/24/19 01/12/21 History release metformin 500 mg PO BID #60 tablet 12/07/20 01/12/21 Rx Lantus Solostar U-100 Insulin 26 unit SUBCUT HS 01/12/21 01/12/21 History imipenem-cilastatin 500 mg IV Q6H #1 ea 01/15/21 Rx vancomycin in 0.9 % sodium chl 2,000 mg IV Q12H #1 ml 01/15/21 Rx Allergies Allergy/AdvReac Type Severity Reaction Status Date / Time No Known Allergies Allergy Verified 01/14/21 12:09 Exam Const: General: healthy appearing; No in distress or confusion Orientation/consciousness: patient oriented x3 and No confusion HENMT: Head: normal to inspection, normocephalic and atraumatic Eyes: Conjunctivae: conjunctivae normal Sclera: sclerae normal Resp: Effort & Inspection: normal respiratory effort and no audible wheezes GI: Inspection: non-distended GI Palp: Yes Soft to palpation and No Tenderness to palpation present (GI) : Male General Exam: Yes normal external exam Skin: Wounds: wounds noted Neuro: General: patient oriented x3, gait normal and No confusion Cognition (Neuro): normal cognition Extrem: Other: Right foot dressing removed. Webspace between 3rd/4th ray with wound measuring 0.2x0.2 with a depth of 0.5 cm. No longer communicating with the plantar ulcer. Plantar ulcer is now closed. No purulence. No malodor. Scant sanguineous drainage from webspace wound. Moves toes. Decreased sensation at baseline. Palpable pedal pulse. Mod
--- NOTE | 2021-04-20 09:54 | PM.IMHP ---
H&P: HPI History of Present Illness Date/Time: 04/20/21 09:54 Chief Complaint: left foot ulcer Narrative: 13 weeks, 5 days s/p right foot infection excisional debridement, excision of osteomyelitis 3rd and 4th proximal phalanx. No new complaints. No signs of infection. No longer requiring dressing changes. Review of Systems Review of Systems: All systems reviewed & are unremarkable except as noted in HPI and below PMFSH Past Medical History Medical History CAD (coronary artery disease) Status post CABG Cancer of transverse colon Status post right hemicolectomy Carpal tunnel syndrome Diabetes GERD (gastroesophageal reflux disease) HTN (hypertension) Surgical History Surgical History Finger amputee After crushing injury to right pointer finger H/O hernia repair 2018 H/O right knee surgery Hiatal hernia with GERD 1989 History of carpal tunnel release Right hand History of hand surgery History of right hemicolectomy with ileocolic anastomsis in 2019 Hx of CABG Family History Family History Sibling Family history of malignant neoplasm Father Family history of chronic obstructive pulmonary disease Hypertension Heart disease Mother Hypertension Cancer Sibling Cancer Sibling Cancer Sibling Cancer Social History Social History Social History: The patient is and lives with his . He has 4 children. The is the durable power criminal attorney for healthcare. The patient is a full code. The patient is a former smoker. He does not use any alcohol marijuana or illicit drugs. He was on disability and is now officially retired. Years smoked: 10 Smoking status: Former smoker Tobacco type: cigarettes Second hand tobacco smoke exposure: No Additional smoking assessment comments: quit smoking over 30 years ago Alcohol intake: unknown Substance use: never Substance use type: does not use Gender identity (if verbalized by the patient): Male Spiritual care concerns: No Meds Home Medications and Allergies Home Medications Medication Instructions Recorded Confirmed Type aspirin 81 mg tablet,delayed 81 mg PO DAILY 09/24/19 01/12/21 History release metformin 500 mg PO BID #60 tablet 12/07/20 01/12/21 Rx Lantus Solostar U-100 Insulin 26 unit SUBCUT HS 01/12/21 01/12/21 History imipenem-cilastatin 500 mg IV Q6H #1 ea 01/15/21 Rx vancomycin in 0.9 % sodium chl 2,000 mg IV Q12H #1 ml 01/15/21 Rx Allergies Allergy/AdvReac Type Severity Reaction Status Date / Time No Known Allergies Allergy Verified 01/14/21 12:09 Exam Const: General: healthy appearing; No in distress or confusion Orientation/consciousness: patient oriented x3 and No confusion HENMT: Head: normal to inspection, normocephalic and atraumatic Eyes: Conjunctivae: conjunctivae normal Sclera: sclerae normal Resp: Effort & Inspection: normal respiratory effort and no audible wheezes GI: Inspection: non-distended GI Palp: Yes Soft to palpation and No Tenderness to palpation present (GI) : Male General Exam: Yes normal external exam Skin: Wounds: wounds noted Neuro: General: patient oriented x3, gait normal and No confusion Cognition (Neuro): normal cognition Extrem: Other: Right foot webspace and plantar ulcer is now closed. No purulence. No malodor. No drainage. Moves toes. Decreased sensation at baseline. Palpable pedal pulse. Surrounding tissue benign. Ecchymosis of the 2nd toenail, unchanged. Psych: Affect: normal affect Assessment and Plan Assessment and plan (1) Foot abscess, right: Code(s): L02.611 - Cutaneous abscess of right foot Status: Acute Assessment and Plan: Both plantar and webspace wounds now closed. No open wounds or signs o
--- NOTE | 2021-06-22 09:50 | PCWOUND ---
WOCN NOTE patient did not come in for appointment. Left voicemail for patient's spouse Tash. After speaking with Lidia PRICE, she believes that she told patient that if the wound was still healed, that he didn't have to come in.
== END 2021-07-05 08:07 | disposition home or self-care (01) ==
LOC: ANHWOC 07:28
PROVIDERS: PCP Family Medicine; Visit Provider Nurse Practitioner Family
DX: E11.621 Type 2 diabetes mellitus with foot ulcer (principal); L97.518 Non-pressure chronic ulcer of other part of right foot with other specified severity
CPT/HCPCS: 99212; G0463

== ENCOUNTER 2021-12-18 15:21 | Observation (INO) | payer MEDICARE, SELFPAY ==
--- NOTE | ~2021-12-18 | XR_ITS ---
EXAM: XR foot RT min 3V DATE: 12/18/2021 16:04 HISTORY: foot pain,erythema Rt foot, diabetic; prev surg Rt foot . COMPARISON: 01/12/2021. MR foot 01/04/2021. FINDINGS: Normal mineralization. No fracture or dislocation. Punched-out lesion along the lateral di stal aspect of the right proximal phalanx. Postsurgical change in the proximal aspect of the proximal third and fourth phalanges. Achilles and plantar enthesopathy. No erosion or periosteal change. Dors al soft tissue swelling. IMPRESSION: No radiographic findings of osteomyelitis. Presumed gouty arthritis in the great toe. Pos tsurgical/post infectious change in the third and fourth proximal phalanges. Reviewed, dictated and finalized at location K. IMPRESSION: No radiographic findings of osteomyelitis. Presumed gouty arthritis in the great toe. Postsurgical/post infectious change in the third and fourth proximal phalanges.
--- NOTE | ~2021-12-18 | US_ITS ---
EXAMINATION: US venous doppler LE RT DATE: 12/19/2021 09:15 INDICATION: Right lower limb edema. TECHNIQUE: Grayscale ultrasound images without and with compression and Doppler ultrasound images of the right lower extremity veins were obtained. COMPARISON: Ultrasound 11/30/2020 FINDINGS: The visualized portions of right common femoral vein, profunda (deep) femoral vein, femoral vein, pop liteal vein, peroneal veins, posterior tibial veins, and greater saphenous vein outflow are patent. IMPRESSION: 1. No deep venous thrombosis. Reviewed, dictated and finalized at location A.
[2021-12-18 15:24] VITALS: BP 140/76; PULSE 96; RESP 18; TEMP 36.4; O2SAT 100
[2021-12-18 15:52] LABS: Glucose Point of Care 389 mg/dl (65-105)
[2021-12-18 16:27] LABS: Basophils Absolute Auto 0.1 K/mm3 (0.0-0.1); Basophils Percent Auto 0.4 % (0.2-1.2); Eosinophils Absolute Auto 0.1 K/mm3 (0-0.3); Eosinophils Percent Auto 0.6 % (0-4.4); Hematocrit 34.8 % (42.0-52.0); Hemoglobin 11.9 g/dL (14.0-18.0); Immature Granulocyte Absolute 0.07 K/mm3 (0.00-0.031); Immature Granulocyte Percent A 0.6 % (0-0.5); Lymphocytes Absolute Auto 0.96 K/mm3 (0.9-3.2); Lymphocytes Percent Auto 8.4 % (18.3-44.2); Mean Corpuscular HGB Conc 34.2 g/dl (32-36); Mean Corpuscular Hemoglobin 30.6 pg (26-34); Mean Corpuscular Volume 89.5 fl (80-100); Mean Platelet Volume 9.7 fl (7.4-10.4); Monocytes Absolute Auto 0.9 K/mm3 (0.1-0.6); Neutrophils Absolute Auto 9.3 K/mm3 (1.3-6.7); Platelet Count Result 254 k/mm3 (150-375); Red Blood Count 3.89 M/mm3 (4.6-6.20); Red Cell Distribution Width 11.8 % (11.5-14.5); White Blood Count 11.4 K/mm3 (4.5-10.0)
[2021-12-18 16:34] LABS: Lactic Acid Reflex 0.9 mmol/L (0.7-2.0)
[2021-12-18 16:40] LABS: Prothrombin Time 13.1 Seconds (11.1-14.7)
--- NOTE | 2021-12-18 16:40 | ED.EXTPRO ---
HPI - Extremity Problem General Chief complaint: Extremity Problem,Nontraumatic Stated complaint: foot infection, diabetic Time Seen by Provider: 12/18/21 15:28 Source: RN notes reviewed History of Present Illness HPI Narrative: Patient presents emergency room from home for right foot wound. Patient states he is a diabetic but does not regularly check his blood sugars he states that this morning they noticed that he had a wound at the base of his right first toe that extends in between his first and second toe that is tender to palpation with surrounding erythema of the foot he denies any known trauma or injury he denies any fevers or chills or any other symptoms states he has had to have wounds debrided by Dr. Coreas before in the past Related Data Home Medications Medication Instructions Recorded Confirmed aspirin 81 mg tablet,delayed 81 mg PO DAILY 09/24/19 01/12/21 release (Adult Low Dose Aspirin) insulin glargine 100 unit/mL (3 26 unit subcut HS 01/12/21 01/12/21 mL) subcutaneous pen (Lantus Solostar U-100 Insulin) Allergies Allergy/AdvReac Type Severity Reaction Status Date / Time No Known Allergies Allergy Verified 12/18/21 15:42 Review of Systems Review of Systems: Gen.: Denies fevers or chills ENT: Denies congestion Respiratory: Denies shortness of breath or cough CV: Denies chest pain or palpitations GI: Denies abdominal pain nausea, emesis Musculoskeletal: Reports foot pain Neuro: Denies numbness, tingling, weakness or focal weakness Skin: See HPI Endocrine: Reports diabetes mellitus Except as documented, all other systems reviewed and negative [facility] Past Medical History Medical History CAD (coronary artery disease) Status post CABG Cancer of transverse colon Status post right hemicolectomy Carpal tunnel syndrome Diabetes GERD (gastroesophageal reflux disease) HTN (hypertension) Surgical History Surgical History Finger amputee After crushing injury to right pointer finger H/O hernia repair 2018 H/O right knee surgery Hiatal hernia with GERD 1990 History of carpal tunnel release Right hand History of hand surgery History of right hemicolectomy with ileocolic anastomsis in 2019 Hx of CABG Family History Family History Sibling Family history of malignant neoplasm Father Family history of chronic obstructive pulmonary disease Hypertension Heart disease Mother Hypertension Cancer Sibling Cancer Sibling Cancer Sibling Cancer Social History Social History Social History: The patient is and lives with his . He has 4 children. The is the durable power civil rights attorney for healthcare. The patient is a full code. The patient is a former smoker. He does not use any alcohol marijuana or illicit drugs. He was on disability and is now officially retired. Years smoked: 10 Smoking status: Former smoker Tobacco type: cigarettes Second hand tobacco smoke exposure: No Additional smoking assessment comments: quit smoking over 30 years ago Alcohol intake: unknown Substance use: never Substance use type: does not use Gender identity (if verbalized by the patient): Male Spiritual care concerns: No Exam Narrative: APPEARANCE: No acute distress, nontoxic, resting in bed EYES: EOMI HEENT: Normocephalic, atraumatic, OMM RESPIRATORY: No respiratory distress Clear to auscultation bilaterally with no rhonchi wheezing or rales. CARDIOVASCULAR: Regular rate and rhythm without murmurs rubs or gallops. ABDOMINAL: Soft, nontender, nondistended, no rebound or guarding MUSCULOSKELETAl: Moves all extremities. No clubbing, cyanosis or edema. Right dorsalis pedis pulse 2+ NEURO: Awake and alert. Following commands, speech normal, no foc
[2021-12-18 16:41] LABS: Partial Thromboplastin Time 27.3 SECONDS (22.3-36.8)
[2021-12-18 16:45] LABS: Alanine Aminotransferase 26 U/L (6-50); Albumin Level 3.9 g/dL (3.5-5.1); Alkaline Phosphatase 106 U/L (38-126); Anion Gap 9 mmol/L (8-16); Aspartate Amino Transferase 25 U/L (17-59); Blood Urea Nitrogen 19 mg/dL (9-20); Calcium 9.3 mg/dL (8.4-10.2); Carbon Dioxide 29 mmol/L (22-30); Chloride 95 mmol/L (98-107); Estimated CRCL calculation 97 ml/min; Estimated Glomerular Filt Rate > 60; Glucose 400 mg/dL (65-110); Potassium 4.5 mmol/L (3.4-5.0); Sodium 133 mmol/L (137-145)
[2021-12-18 16:55] LABS: CRP 13.9 mg/dL (<1.0)
[2021-12-18 17:04] LABS: Erythrocyte Sedimentation Rate 48 mm/hr (0-20)
[2021-12-18] MEDS: metroNIDAZOLE 500 MG/ISO 100ML 500 MG/100 ML BAG 100 MG IVPB (17:25)
[2021-12-18 18:24] VITALS: PULSE 79; RESP 18; O2SAT 99
--- NOTE | 2021-12-18 18:47 | ADMGEN ---
This patient, Ramirez Orantes Jr., was admitted to Medical Room 246-01. Patient/family oriented to hospital policies and general routines including ID bracelet, bed and alarms, visiting hours, pain management, procedures, bathroom and other care routines, personal items, smoking policy, room service/diet, and visiting hours. Information on how to activate the Rapid Response Team has been discussed. Patient/Family are encouraged to report perceived risks to care and to ask questions if they do not understand what they are told or what they should do. report received from Eva CEJA
[2021-12-18 18:50] VITALS: BMI 23.5
[2021-12-18 18:51] LABS: Glucose Point of Care 342 mg/dl (65-105)
[2021-12-18 19:54] VITALS: BP 167/92; PULSE 78; RESP 18; TEMP 36.4; O2SAT 99
--- NOTE | 2021-12-18 22:00 | PM.IMHP ---
H&P: HPI History of Present Illness Date/Time: 12/18/21 22:00 Chief Complaint: Right foot wound. Narrative: This is a pleasant 66-year-old male with insulin-dependent type 2 diabetes mellitus, coronary artery disease status post CABG, hypertension, and other comorbidities who presented to the emergency department from home for evaluation of right foot wound. About a week ago he noticed what appeared to be a contact between his right 1st and 2nd toes though he is unsure as to how that came to be. Three days ago he started to have pain throughout the entire right leg and into the groin with weight-bearing at which time he noticed that the wound had become red and swollen. Since that time he has had sweats and chills in addition to of poor appetite. His looked at the wound today and felt that he needed to come in for evaluation. He was afebrile on arrival to the emergency department. Pertinent labs include a WBC of 11.4, glucose 400, and CRP of 13.9. Right foot x-ray showed no radiographic findings of osteomyelitis. He is being admitted in this setting for IV antibiotics and surgery consultation for probable debridement. 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 Review of Systems Review of Systems: Twelve systems were reviewed. He has had some chills and sweats but no documented fever. No recent cold or flu symptoms. No chest pain or shortness of breath. He has occasional blurry vision which she attributes to his glucose is running high though he admits that he does not check his sugar often. He has always drink a lot of water. He urinates frequently. Occasional slow stream though no concerns for urinary retention. He has some peripheral neuropathy but is still able to feel pain from his wound. Except as documented, all other systems were reviewed and are negative. [facility] Past Medical History Medical History (Updated 12/19/21 @ 00:09 by Jing Rand PA-C) Cancer of transverse colon Status post right hemicolectomy. Carpal tunnel syndrome Coronary artery disease Status post CABG. Diabetic peripheral neuropathy Gastroesophageal reflux disease Hiatal hernia Hypertension Insulin dependent type 2 diabetes mellitus Surgical History Surgical History (Updated 12/18/21 @ 23:54 by Jing Rand PA-C) Finger amputee Right 2nd finger secondary to crush injury. History of arthroscopy of right knee History of cardiac catheterization History of carpal tunnel release History of colonoscopy with polypectomy History of coronary artery bypass graft History of coronary artery stent placement History of hernia repair (2018) History of repair of hiatal hernia (2001) History of right hemicolectomy with ileocolic anastomsis in 2019 Status post debridement (12/2020) Right foot abscess, osteomyelitis. Family History Family History Sibling Family history of malignant neoplasm Father Family history of chronic obstructive pulmonary disease Hypertension Heart disease Mother Hypertension Cancer Sibling Cancer Sibling Cancer Sibling Cancer Social History Social History (Updated 12/18/21 @ 23:56 by Jing Rand PA-C) Social History: The patient is and lives with his and 1 son in [place]. They have 4 children. 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 No alcohol or illicit substance abuse. Surrogate medical decision maker: Tash Orantes, spouse. Code status: Full code. Spiritual care concerns: No Meds Home Medications and Allergies Home Medications Medication Instructions Recorded Confirmed Type No Home Medications 12/18/21 12/18/21 History Allergies Allergy/AdvReac Type Severity Reaction Status Date
[2021-12-18 23:10] LABS: SARS-CoV-2 RNA PCR Negative
[2021-12-18 23:11] VITALS: PULSE 89; RESP 14; O2SAT 95
[2021-12-19] MEDS: INSULIN GLARGINE (*BKC) 100 UNITS/ML 24 UNITS SUB-Q (00:17)
[2021-12-19 00:21] LABS: Glucose Point of Care 287 mg/dl (65-105)
[2021-12-19] MEDS: metroNIDAZOLE 500 MG/ISO 100ML 500 MG/100 ML BAG 100 MG IVPB ×2 (01:11→09:15)
[2021-12-19 03:45] VITALS: BP 150/72; PULSE 80; RESP 18; TEMP 36.6; O2SAT 99
[2021-12-19 05:13] LABS: Basophils Percent Auto 0.3 % (0.2-1.2); Eosinophils Absolute Auto 0.1 K/mm3 (0-0.3); Eosinophils Percent Auto 1.4 % (0-4.4); Hematocrit 35.8 % (42.0-52.0); Hemoglobin 12.2 g/dL (14.0-18.0); Immature Granulocyte Absolute 0.03 K/mm3 (0.00-0.031); Immature Granulocyte Percent A 0.3 % (0-0.5); Lymphocytes Absolute Auto 0.99 K/mm3 (0.9-3.2); Lymphocytes Percent Auto 10.7 % (18.3-44.2); Mean Corpuscular HGB Conc 34.1 g/dl (32-36); Mean Corpuscular Hemoglobin 30.9 pg (26-34); Mean Corpuscular Volume 90.6 fl (80-100); Mean Platelet Volume 9.4 fl (7.4-10.4); Monocytes Absolute Auto 0.9 K/mm3 (0.1-0.6); Monocytes Percent Auto 10.1 % (2.6-8.5); Neutrophils Absolute Auto 7.2 K/mm3 (1.3-6.7); Neutrophils Percent Auto 77.2 % (45.5-73.1); Platelet Count Result 240 k/mm3 (150-375); Red Blood Count 3.95 M/mm3 (4.6-6.20); Red Cell Distribution Width 11.6 % (11.5-14.5); White Blood Count 9.3 K/mm3 (4.5-10.0)
[2021-12-19 05:20] LABS: Hemoglobin A1C 12.7 % (<5.7)
[2021-12-19 05:25] LABS: Alanine Aminotransferase 23 U/L (6-50); Albumin Level 3.6 g/dL (3.5-5.1); Alkaline Phosphatase 84 U/L (38-126); Anion Gap 11 mmol/L (8-16); Aspartate Amino Transferase 25 U/L (17-59); Bilirubin,Total 1.1 mg/dL (0.2-1.3); Blood Urea Nitrogen 14 mg/dL (9-20); Calcium 8.3 mg/dL (8.4-10.2); Carbon Dioxide 30 mmol/L (22-30); Chloride 94 mmol/L (98-107); Estimated CRCL calculation 129 ml/min; Estimated Glomerular Filt Rate > 60; Glucose 226 mg/dL (65-110); Magnesium 1.9 mg/dL (1.6-2.3); Potassium 4.1 mmol/L (3.4-5.0); Sodium 135 mmol/L (137-145)
[2021-12-19 06:23] LABS: Thyroid Stimulating Hormone Reflex 0.643 uIU/mL (0.465-4.68)
[2021-12-19 08:27] LABS: Glucose Point of Care 221 mg/dl (65-105)
[2021-12-19] MEDS: INSULIN ASPART (*BKC) 100 UNITS/ML SUB-Q (08:57)
[2021-12-19] MEDS: ENOXAPARIN 40 MG/0.4 ML SYRINGE SUB-Q (08:58)
[2021-12-19] MEDS: ACETAMINOPHEN 325 MG TABLET 650 MG PO (10:11)
--- NOTE | 2021-12-19 10:36 | PM.CNGS ---
Assessment and Plan Assessment and plan (1) Diabetic ulcer of right foot: Code(s): E11.621 - Type 2 diabetes mellitus with foot ulcer; L97.519 - Non-pressure chronic ulcer of other part of right foot with unspecified severity Status: Acute Assessment and Plan: will need bedside debridement to get better drainage, no evidence of osteo on xray, cont abx and local wound care (2) Insulin dependent type 2 diabetes mellitus, uncontrolled: Status: Acute Assessment and Plan: stressed importance of compliance and better control History of Present Illness Consult details Consult date: 12/19/21 Reason for consult: wound care Requesting physician: Jovany España MD Narrative: The patient old male with multiple medical issues, including poorly controlled diabetes, CAD, presenting with a right foot wound. The patient reports he 1st noticed the wound a few weeks ago. The patient reports the wound was initially just red and swollen, in between his 1st and 2nd toes. Over the next week, the wound has gotten progressively more swollen and red. The patient reports cellulitis extending up his right lower extremity, and even pain in his upper leg and groin. The patient reports fevers and chills, as well as poor appetite and general malaise. The patient reports that he has been much more tired and weak than usual. Review of Systems Constitutional: Constitutional: Reports as per HPI, Denies anorexia, Reports chills, Reports fatigue, Reports fever(s), Reports lethargy, Reports malaise, Reports poor appetite, Reports weakness, Denies weight gain and Denies weight loss Eyes: Eyes: Reports no additional eye complaints ENT: Reports system reviewed and no additional complaints, except as documented Cardiovascular: Cardiovascular: Reports no additional cardiovascular complaints Respiratory: Respiratory: Reports no additional respiratory complaints Gastrointestinal: Gastrointestinal: Reports no additional gastrointestinal complaints Genitourinary: Genitourinary: Reports no additional male genitourinary complaints Musculoskeletal: Musculoskeletal: Reports as per HPI and Reports abnormal gait Integumentary/Breasts: Skin/Breast: Reports as per HPI and Reports erythema Neurologic: Reports system reviewed and no additional complaints, except as documented Psychiatric: Psychiatric: Reports no additional psychiatric complaints Endocrine: Endocrine: Reports no additional endocrine complaints Hematologic/Lymphatic: Hematologic/Lymphatic: Reports no additional hematologic/lymphatic complaints Allergic/Immunologic: Allergic/Immunologic: Reports no additional allergic/immunologic complaints [facility] Past Medical History Medical History Cancer of transverse colon Status post right hemicolectomy. Carpal tunnel syndrome Coronary artery disease Status post CABG. Diabetic peripheral neuropathy Gastroesophageal reflux disease Hiatal hernia Hypertension Insulin dependent type 2 diabetes mellitus Surgical History Surgical History Finger amputee Right 2nd finger secondary to crush injury. History of arthroscopy of right knee History of cardiac catheterization History of carpal tunnel release History of colonoscopy with polypectomy History of coronary artery bypass graft History of coronary artery stent placement History of hernia repair (2018) History of repair of hiatal hernia (2001) History of right hemicolectomy with ileocolic anastomsis in 2019 Status post debridement (12/2020) Right foot abscess, osteomyelitis. Family History Family History Sibling Family history of malignant neoplasm Father Family history of chronic obstructive pulmonary disease Hypertension Heart disease Mother Hypertension Cancer Sibling Cancer Sibling Cancer Sibling Canc
--- NOTE | 2021-12-19 10:46 | W.PM.PROC2 ---
Procedure Note - Detailed Date of Procedure 12/19/21 Pre-op Diagnosis Right foot diabetic foot ulcer, infection Post-op Diagnosis Same Procedure Performed complex incision and drainage right foot infected diabetic foot ulcer measuring approximately 5 x 4 cm Surgeon Juani Nunes MD Anesthesia Local and None Indications The patient is a 66-year-old male with multiple medical issues including poorly controlled diabetes presenting with a right lower extremity infected diabetic foot ulcer Findings 5 x 4 cm infected diabetic foot ulcer contained within the subcutaneous tissue, no evidence of bone involvement Description of Procedure The patient was placed in the supine position. The area was prepped and draped in the normal sterile fashion. Of note, bad peripheral neuropathy and really unable to feel much of the area. I began by debriding the skin overlying the infection. This skin was sloughing off and was easily debrided away using scissors. Once the underlying tissue was exposed, there was noted to be an abscess cavity in the plantar aspect of metatarsal the 1st digit. I used the hemostat to bluntly dissect into this cavity. A moderate amount of purulent drainage was noted. The sloughing tissue was debrided including some skin between the 1st and 2nd digits. No other cavities were noted. The abscess was all contained within the dermis and subcutaneous tissue. Once all the infected, necrotic tissue was debrided I placed a sterile dressing on the wound. The wound measured approximately 5 x 4 cm. The patient tolerated the procedure well. Estimated Blood Loss 5 Drains No Packing No Pathology None sent Complications No immediate complications Condition Stable Disposition Floor AM Billing Surgery - Charge Forward: Surgery Billing
--- NOTE | 2021-12-19 10:47 | PM.DS ---
DS: Admitting Diagnosis Discharge Date 12/19/21 1114 Admitting Diagnosis Diabetic foot ulcer, right Cellulitis, right foot Insulin dependent diabetes mellitus, uncontrolled. Medication noncompliance DS: Discharge Diagnosis Discharge Diagnosis (1) Diabetic ulcer of right foot: Code(s): E11.621 - Type 2 diabetes mellitus with foot ulcer; L97.519 - Non-pressure chronic ulcer of other part of right foot with unspecified severity Status: Acute Assessment and Plan: Patient states the wound 1st noticed about a week ago as a cut and it has gotten worse over last 3 days. X-ray showed no findings to suggest osteomyelitis though there are some findings for possible gouty arthritis of the right great toe. Started on vancomycin, cefepime, and metronidazole per antibiotic stewardship recommendations. Dr. Nunes has been consulted for his opinion regarding the need for debridement. Analgesics available as needed. (2) Cellulitis of right foot: Code(s): L03.115 - Cellulitis of right lower limb Status: Acute Assessment and Plan: Plan is as detailed above. (3) Insulin dependent type 2 diabetes mellitus, uncontrolled: Status: Acute Assessment and Plan: Patient stop taking his insulin several months ago when he went back to work. Random glucose today was 400 and A1c is 12.7% Treated with Lantus 24 units q.h.s. and that will be titrated as needed. Initiate sliding scale insulin, Accu-Cheks, and hypoglycemic protocol. Patient dose not want to resume insulin. 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 Patient willing to take oral medications as above. (5) Hypertension: Code(s): I10 - Essential (primary) hypertension Status: Acute Assessment and Plan: Blood pressures were reviewed and stable. Continued on antihypertensives at home doses. DS: Summary Hospital Course Reason for hospitalization: Right foot wound Hospital Course: Patient is a pleasant 66-year-old male with insulin-dependent type 2 diabetes mellitus, coronary artery disease status post CABG, hypertension, and other comorbidities who presented to the emergency department from home for evaluation of right foot wound. About a week ago he noticed what appeared to be a cut between his right 1st and 2nd toes though he is unsure as to how that came to be. Three days ago he started to have pain throughout the entire right leg and into the groin with weight-bearing at which time he noticed that the wound had become red and swollen. Since that time he has had sweats and chills in addition to poor appetite. His looked at the wound and felt that he needed to come in for evaluation. He was afebrile on arrival to the emergency department. Pertinent labs include a WBC of 11.4, glucose 400, and CRP of 13.9. Right foot x-ray showed no radiographic findings of osteomyelitis. He was being admitted to the medical floor for IV antibiotics and surgery consultation for probable debridement. 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 patient was treated with IV vancomycin, IV metronidazole, and IV cefepime for broad-spectrum antibiotic coverage. General surgery was consulted and the patient's wound was debrided at the bedside and drained. He was instructed to have daily dressing changes and to follow up with his PCP to arrange outpatient wound care. Patient was extensively counseled on medicati
[2021-12-19] MEDS: metFORMIN HCL XR 500 MG TAB.SR.24H PO (10:51)
[2021-12-19] MEDS: EMPAGLIFLOZIN 10 MG TABLET PO (10:51)
== END 2021-12-19 11:50 | disposition home or self-care (01) ==
LOC: ANHED 17:47 → ANH2MED 12-19 04:02
PROVIDERS: Physician Assistant; Admitting Provider Internal Medicine; Emergency Provider Emergency Medicine; PCP Family Medicine; Visit Provider Nurse Practitioner Family
DX: E11.621 Type 2 diabetes mellitus with foot ulcer (principal); L97.519 Non-pressure chronic ulcer of other part of right foot with unspecified severity; L02.611 Cutaneous abscess of right foot; L03.115 Cellulitis of right lower limb; E11.42 Type 2 diabetes mellitus with diabetic polyneuropathy; Z91.14 Patient's other noncompliance with medication regimen; I10 Essential (primary) hypertension; Z20.822 Contact with and (suspected) exposure to COVID-19; I25.10 Atherosclerotic heart disease of native coronary artery without angina pectoris; R60.0 Localized edema; Z95.1 Presence of aortocoronary bypass graft; Z95.5 Presence of coronary angioplasty implant and graft; K21.9 Gastro-esophageal reflux disease without esophagitis; Z87.891 Personal history of nicotine dependence; Z79.4 Long term (current) use of insulin; Z79.82 Long term (current) use of aspirin; Z79.891 Long term (current) use of opiate analgesic
CPT/HCPCS: 10061; 36415; 73630; 80053; 82948; 83036; 83605; 83735; 84443; 85025; 85610; 85652; 85730; 86140; 87040; 93971; 96365; 96366; 96367; 96368; 96372; 96375; 99285; A9270; C9803; G0378; J0692; J1650; J1815; J3370; U0003; U0005

== ENCOUNTER 2022-02-05 10:04 | Emergency (ER) | payer MEDICARE, SELFPAY ==
[2022-02-05] VITALS (11 sets, daily range): BP systolic 125–148; BP diastolic 64–91; PULSE 74–88; RESP 12–19; TEMP 36.2; O2SAT 98–100
--- NOTE | ~2022-02-05 | XR_ITS ---
EXAMINATION: XR chest 2V DATE: 02/05/2022 10:59 INDICATION: Chest pain and palpitations TECHNIQUE: AP and lateral views of the chest are obtained. COMPARISON: 01/15/2021 FINDINGS: The lungs are free of acute opacities. There is mild atelectasis of the lingula. No pleural effusion or pneumothorax. Median sternotomy wires and mediastinal surgical clips are seen, likely fr om prior coronary artery bypass grafting. There is mild thoracic spondylosis. There are surgical cook ges in the upper quadrant. IMPRESSION: 1. No acute cardiopulmonary abnormality. Reviewed, dictated and finalized at location A.
--- NOTE | ~2022-02-05 | CT_ITS ---
EXAMINATION: CT abdomen pelvis w con INDICATION: Pelvic pain TECHNIQUE: Computed tomographic images of the abdomen and pelvis were obtained after the administrati on of 100 cc of Omnipaque 350 intravenous contrast. The dose-length product (DLP) was 469.30 mGy-cm. Automated exposure control and iterative reconstruction technique were employed. COMPARISON: 09/10/2019 FINDINGS: Minimal dependent atelectasis is present in the lung bases. The heart size is normal. The g allbladder is surgically absent. The liver, spleen, pancreas, and adrenal glands are normal. There ou r changes of right hemicolectomy. The kidneys are unremarkable. No pathologically enlarged abdominal or pelvic lymph nodes are identified. There is no free intraperitoneal gas or evidence of bowel obstr uction. There is circumferential wall thickening of the urinary bladder. Colonic diverticulosis is pr esent without evidence of diverticulitis. There is moderate osteoarthritis of the hips. There is mild lumbar spondylosis. IMPRESSION: 1. Circumferential wall thickening of the urinary bladder which could reflect cystitis. Reviewed, dictated and finalized at location A. IMPRESSION: 1. Circumferential wall thickening of the urinary bladder which could reflect c ystitis.
--- NOTE | 2022-02-05 10:11 | ECG_ITS ---
Measurements Intervals [place] Rate: 86 P: 12 SD: 118 QRS: -62 QRSD: 125 T: 105 QT: 389 QTc: 467 Interpretive Statements SINUS RHYTHM WITH SHORT SD INTERVAL LEFT ANTERIOR FASCICULAR BLOCK [QRS AXIS <= -45, QR IN I, RS IN II] POOR R-WAVE PROGRESSION MODERATE T-WAVE ABNORMALITY, CONSIDER LATERAL ISCHEMIA [-0.1+ mV T WAVE IN I/aVL/V5/V6] COMPARED TO ECG 11/30/2020 06:35:28 LEFT ANTERIOR FASCICULAR BLOCK NOW PRESENT Electronically Signed On 02-05-2022 18:48:18 CDT by Kelli Escobedo M.D.
[2022-02-05 10:23] LABS: Basophils Percent Auto 0.3 % (0.2-1.2); Hematocrit 41.8 % (42.0-52.0); Hemoglobin 14.2 g/dL (14.0-18.0); Immature Granulocyte Absolute 0.03 K/mm3 (0.00-0.031); Immature Granulocyte Percent A 0.3 % (0-0.5); Lymphocytes Absolute Auto 0.55 K/mm3 (0.9-3.2); Lymphocytes Percent Auto 6.1 % (18.3-44.2); Mean Corpuscular Hemoglobin 30.7 pg (26-34); Mean Corpuscular Volume 90.3 fl (80-100); Mean Platelet Volume 9.4 fl (7.4-10.4); Monocytes Absolute Auto 0.6 K/mm3 (0.1-0.6); Neutrophils Absolute Auto 7.7 K/mm3 (1.3-6.7); Neutrophils Percent Auto 86.3 % (45.5-73.1); Platelet Count Result 212 k/mm3 (150-375); Red Blood Count 4.63 M/mm3 (4.6-6.20); Red Cell Distribution Width 11.9 % (11.5-14.5)
--- NOTE | 2022-02-05 10:32 | ED.CHESTPAIN ---
HPI - Chest Pain General Chief Complaint: Chest Pain Stated Complaint: CHEST PAIN Time Seen by Provider: 02/05/22 10:31 History of Present Illness HPI narrative: 66-year-old male with a history of CAD status post stenting and CABG, colon cancer status post resection, diabetes, here for evaluation of multiple medical complaints. Patient states that he has been feeling fatigued throughout the day with decreased appetite over the past week. Reports that he has not been eating or drinking as he usually does and therefore has had decreased urine output in addition to dysuria. States he just does not feel hungry, is not nauseated and has no abdominal pain. Additionally notes night sweats, a fluttering sensation in his chest that is intermittent, and a mild cough. Denies sick contacts. No chest pain, fevers, shortness of breath, leg swelling, unintentional weight loss. Related Data Allergies Allergy/AdvReac Type Severity Reaction Status Date / Time No Known Allergies Allergy Verified 12/28/21 10:52 Review of Systems Review of Systems: Gen: Reports night sweats. Denies fevers or chills Eyes: Denies eye pain or visual change ENT: Denies congestion Respiratory: Reports cough. Denies shortness of breath CV: Reports palpitations. GI: Denies abdominal pain nausea, emesis or diarrhea : denies burning, urgency, frequency or hematuria Musculoskeletal: Denies back pain or muscle pain Neuro: Denies numbness, tingling, weakness or focal weakness Skin: Denies rash Except as documented, all other systems reviewed and negative PMFSH Past Medical History Medical History Cancer of transverse colon Status post right hemicolectomy. Carpal tunnel syndrome Coronary artery disease Status post CABG. Diabetic peripheral neuropathy Gastroesophageal reflux disease Hiatal hernia Hypertension Insulin dependent type 2 diabetes mellitus Surgical History Surgical History Finger amputee Right 2nd finger secondary to crush injury. History of arthroscopy of right knee History of cardiac catheterization History of carpal tunnel release History of colonoscopy with polypectomy History of coronary artery bypass graft History of coronary artery stent placement History of hernia repair (2018) History of incision and drainage Complex I&D Right foot infected diabetic foot ulcer measuring approximately 5x4cm. on 12/19/21 History of repair of hiatal hernia (2001) History of right hemicolectomy with ileocolic anastomsis in 2019 Status post debridement (12/2020) Right foot abscess, osteomyelitis. Family History Family History Sibling Family history of malignant neoplasm Father Family history of chronic obstructive pulmonary disease Hypertension Heart disease Mother Hypertension Cancer Sibling Cancer Sibling Cancer Sibling Cancer Social History Social History Social History: The patient is and lives with his and 1 son in [place]. They have 4 children. 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 No alcohol or illicit substance abuse. Surrogate medical decision maker: Tash Orantes, spouse. Code status: Full code. Smoking status: Smoker, status unknown Spiritual care concerns: No Exam Narrative: APPEARANCE: Thin. Well appearing, no pain in distress. Head: Normocephalic and atraumatic. EYES: PERRLA/EOMI, conjunctivae clear NOSE: No nasal drainage EARS: External ear normal in appearance THROAT: Oropharynx is clear. Mucous membranes are moist. NECK: Supple. No adenopathy, no masses. RESPIRATORY: Airway patent, respirations nonlabored. Clear to auscultation bilaterally, no rales, rhonchi, wheezing.
[2022-02-05 10:33] LABS: Alanine Aminotransferase 23 U/L (6-50); Alkaline Phosphatase 95 U/L (38-126); Anion Gap 13 mmol/L (8-16); Aspartate Amino Transferase 28 U/L (17-59); Bilirubin,Total 1.3 mg/dL (0.2-1.3); Blood Urea Nitrogen 17 mg/dL (9-20); Calcium 8.8 mg/dL (8.4-10.2); Carbon Dioxide 24 mmol/L (22-30); Chloride 96 mmol/L (98-107); Estimated CRCL calculation 111 ml/min; Estimated Glomerular Filt Rate > 60; Glucose 248 mg/dL (65-110); Lipase 17 U/L (23-300); Potassium 4.2 mmol/L (3.4-5.0); Sodium 133 mmol/L (137-145)
[2022-02-05 10:34] LABS: INR 1.1; Partial Thromboplastin Time 25.9 SECONDS (22.3-36.8); Prothrombin Time 13.6 Seconds (11.1-14.7)
[2022-02-05 10:45] LABS: Troponin I < 0.012 ng/mL (0.000-0.034)
[2022-02-05 11:27] LABS: Add Urine Microscopic? YES; Appearance Urine Cloudy (Clear); Bacteria Urine Trace /hpf; Bilirubin Urine Negative (Negative); Blood Urine 1+ (Negative); Color Urine Yellow (Yellow); Glucose Urine UA 3+ mg/dL (Negative); Ketones Urine 2+ mg/dL (Negative); Leukocyte Esterase Ur 1+ LEU/UL (Negative); Mucus Urine Rare /lpf; Nitrate Urine Negative (Negative); Protein Urine 2+ mg/dL (Negative); Specific Grav Ur 1.028 (1.001-1.035); Squamous Epithelial Cell Urine Rare /hpf (Few); Urobilinogen Urine Negative mg/dL (<2.0); WBC Urine >75 /hpf
[2022-02-05 11:29] LABS: NT Pro B Type Natriuretic Pept 1480 pg/mL (5-100)
[2022-02-05 11:54] LABS: Influenza A QL RT-PCR Negative (Negative); Influenza B QL RT-PCR Negative (Negative); SARS-CoV-2 RNA PCR Negative
[2022-02-05 11:57] LABS: Beta-Hydroxybutyrate/Acetoacetate 2.73 mmol/L (0.02-0.27)
[2022-02-05] MEDS: SODIUM CHLORIDE 0.9% IV 1,000 ML 999 ML IV CONT ×2 (12:08→13:05)
[2022-02-05 12:16] LABS: Alveolar/Arterial O2 Gradient 18.3 mmHg; Base Excess ABG -1.3 mEq/l (+/-2.0); Fractional Inspired Oxygen 21 %; Modified Allen's Test Pass; Oxygen Content ABG 18.5 %vol (16.0-22.0); Oxygen Saturation ABG 96.7 % (95.0-100.0); Oxyhemoglobin 95.5 % THb (90.0-100.0); PCO2 ABG 37.2 mmHg (35.0-45.0); PO2 ABG 86.9 mmHg (80.0-100.0); PO2 FiO2 Ratio Arterial Blood 4.14 %; Site Drawn LEFT RADIAL; Total Hemoglobin 13.7 g/dL (12.0-18.0); pH ABG 7.409 (7.350-7.450)
[2022-02-05 13:42] LABS: Lactic Acid Reflex 0.9 mmol/L (0.7-2.0)
[2022-02-05 14:29] LABS: Troponin I < 0.012 ng/mL (0.000-0.034)
== END 2022-02-05 14:15 | disposition home or self-care (01) ==
PROVIDERS: Physician Assistant; Emergency Provider Emergency Medicine; PCP Family Medicine
DX: N39.0 Urinary tract infection, site not specified (principal); Z20.822 Contact with and (suspected) exposure to COVID-19; I25.10 Atherosclerotic heart disease of native coronary artery without angina pectoris; E11.42 Type 2 diabetes mellitus with diabetic polyneuropathy; I10 Essential (primary) hypertension; K21.9 Gastro-esophageal reflux disease without esophagitis; Z85.038 Personal history of other malignant neoplasm of large intestine; Z95.1 Presence of aortocoronary bypass graft; Z95.5 Presence of coronary angioplasty implant and graft; Z90.49 Acquired absence of other specified parts of digestive tract; Z89.021 Acquired absence of right finger(s); Z87.891 Personal history of nicotine dependence; Z79.84 Long term (current) use of oral hypoglycemic drugs; I44.4 Left anterior fascicular block; R94.31 Abnormal electrocardiogram [ECG] [EKG]
CPT/HCPCS: 36415; 36600; 71046; 74177; 80053; 81001; 82010; 82805; 83605; 83690; 83880; 84484; 85025; 85610; 85730; 87086; 87147; 87181; 87186; 87502; 93005; 96361; 96365; 99284; C9803; J0696; J7030; Q9967; U0003; U0005

== ENCOUNTER 2022-03-28 02:14 | Day surgery (SDC) | payer MEDICARE, SELFPAY ==
[2022-03-21 13:46] VITALS: BMI 23.3
[2022-03-28 06:55] VITALS: BP 101/63; PULSE 95; RESP 18; TEMP 36.1; O2SAT 99
[2022-03-28 07:11] LABS: Glucose Point of Care 282 mg/dl (65-105)
[2022-03-28] MEDS: LACTATED RINGERS 1,000 ML 150 ML IV CONT (07:11)
--- NOTE | 2022-03-28 07:32 | WPDANESEPPF ---
Anes - Initial Pre Proc Eval Procedure: Operation Date: 03/28/22 08:00 Proposed Procedures p Screening Colonoscopy - Iain Reyes MD Date/Time: 03/28/22 07:32 Surgeon: Iain Reyes MD Pre Op Diagnosis: Hx of colon cancer Patient Data Age: 66 Gender: M Height: 1.83 m Weight: 77.8 kg Last Vital Signs Temp 97 F L 03/28/22 06:55 Pulse 95 03/28/22 06:55 Resp 18 03/28/22 06:55 BP 101/63 03/28/22 06:55 Pulse Ox 99 03/28/22 06:55 O2 Del Method Room Air 03/28/22 06:55 Allergies Allergy/AdvReac Type Severity Reaction Status Date / Time No Known Allergies Allergy Verified 03/28/22 06:55 Home Medications Medication Instructions Recorded Confirmed Type empagliflozin 10 mg tablet 10 mg PO DAILY 30 days #30 tabs 12/19/21 03/21/22 Rx (Jardiance) hydrocodone 5 mg-acetaminophen 325 1 tablet PO Q4H PRN pain 6 or 12/19/21 03/21/22 Rx mg tablet higher #10 tabs metformin 500 mg tablet,extended 1,000 mg PO DAILY #60 tabs 12/19/21 03/21/22 Rx release 24hr sodium,potassium,mag sulfates 17.5 See Rx Instructions PO .COMPLEX 02/01/22 03/21/22 Rx gram-3.13 gram-1.6 gram oral soln #354 mL (Suprep Bowel Prep Kit) sulfamethoxazole 800 1 tablet PO Q12H #14 tabs 02/05/22 03/21/22 Rx mg-trimethoprim 160 mg tablet (Bactrim DS) aspirin 81 mg capsule 81 mg PO DAILY 03/21/22 03/21/22 History escitalopram oxalate 10 mg tablet 10 mg PO DAILY 03/21/22 03/21/22 History Laboratory Tests 03/28/22 07:08 POC Capillary Glucose 282 mg/dl H mg/dl (65-105) Patient hx anesthesia problems: none Family hx anesthesia problems: none Results Review: All pre-operative results and documents have been reviewed as part of the pre-operative evaluation. [facility] Past Medical History Medical History Cancer of transverse colon Status post right hemicolectomy. Carpal tunnel syndrome Coronary artery disease Status post CABG. Diabetic peripheral neuropathy Gastroesophageal reflux disease Hiatal hernia Hypertension Insulin dependent type 2 diabetes mellitus Surgical History Surgical History Finger amputee Right 2nd finger secondary to crush injury. History of arthroscopy of right knee History of cardiac catheterization History of carpal tunnel release History of colonoscopy with polypectomy History of coronary artery bypass graft History of coronary artery stent placement History of hernia repair (2019) History of incision and drainage Complex I&D Right foot infected diabetic foot ulcer measuring approximately 5x4cm. on 12/19/21 History of repair of hiatal hernia (2001) History of right hemicolectomy with ileocolic anastomsis in 2019 Status post debridement (12/2020) Right foot abscess, osteomyelitis. Family History Family History Sibling Family history of malignant neoplasm Father Family history of chronic obstructive pulmonary disease Hypertension Heart disease Mother Hypertension Cancer Sibling Cancer Sibling Cancer Sibling Cancer Social History Social History Social History: The patient is and lives with his and 1 son in [place]. They have 4 children. 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 No alcohol or illicit substance abuse. Surrogate medical decision maker: Tash Orantes, spouse. Code status: Full code. Years smoked: 10 Smoking status: Former smoker Tobacco type: cigarettes Living arrangements: with family Spiritual care concerns: No Anes - Eval Final PreProcedure Day of Procedure 03/28/22 07:32 Patient weight: normal Heart: regular rate and rhythm Lungs: clear to auscultation Airway: Jael
--- NOTE | 2022-03-28 07:47 | PM.HPGS ---
History of Present Illness History of Present Illness Consent: Risks, benefits, and alternatives have been discussed and questions answered. Patient agrees to proceed with procedure. Chief complaint: Hx of colon cancer Narrative: Ramirez Orantes Jr. is a 66 year old male Presents for screening colonoscopy. Patient was found to have a carcinoma of the colon resected 2018. Patient reports his current weight appetite and bowel movements are normal. Patient denies abdominal pain. He has had no bleeding. Family history noncontributory. Review of Systems Review of Systems: Review of systems noncontributory. [facility] Past Medical History Medical History Cancer of transverse colon Status post right hemicolectomy. Carpal tunnel syndrome Coronary artery disease Status post CABG. Diabetic peripheral neuropathy Gastroesophageal reflux disease Hiatal hernia Hypertension Insulin dependent type 2 diabetes mellitus Surgical History Surgical History Finger amputee Right 2nd finger secondary to crush injury. History of arthroscopy of right knee History of cardiac catheterization History of carpal tunnel release History of colonoscopy with polypectomy History of coronary artery bypass graft History of coronary artery stent placement History of hernia repair (2019) History of incision and drainage Complex I&D Right foot infected diabetic foot ulcer measuring approximately 5x4cm. on 12/19/21 History of repair of hiatal hernia (2001) History of right hemicolectomy with ileocolic anastomsis in 2019 Status post debridement (12/2020) Right foot abscess, osteomyelitis. Family History Family History Sibling Family history of malignant neoplasm Father Family history of chronic obstructive pulmonary disease Hypertension Heart disease Mother Hypertension Cancer Sibling Cancer Sibling Cancer Sibling Cancer Social History Social History Social History: The patient is and lives with his and 1 son in [place]. They have 4 children. 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 No alcohol or illicit substance abuse. Surrogate medical decision maker: Tash Orantes, spouse. Code status: Full code. Years smoked: 10 Smoking status: Former smoker Tobacco type: cigarettes Living arrangements: with family Spiritual care concerns: No Meds Home Medications and Allergies Home Medications Medication Instructions Recorded Confirmed Type empagliflozin 10 mg tablet 10 mg PO DAILY 30 days #30 tabs 12/19/21 03/21/22 Rx (Jardiance) hydrocodone 5 mg-acetaminophen 325 1 tablet PO Q4H PRN pain 6 or 12/19/21 03/21/22 Rx mg tablet higher #10 tabs metformin 500 mg tablet,extended 1,000 mg PO DAILY #60 tabs 12/19/21 03/21/22 Rx release 24hr sodium,potassium,mag sulfates 17.5 See Rx Instructions PO .COMPLEX 02/01/22 03/21/22 Rx gram-3.13 gram-1.6 gram oral soln #354 mL (Suprep Bowel Prep Kit) sulfamethoxazole 800 1 tablet PO Q12H #14 tabs 02/05/22 03/21/22 Rx mg-trimethoprim 160 mg tablet (Bactrim DS) aspirin 81 mg capsule 81 mg PO DAILY 03/21/22 03/21/22 History escitalopram oxalate 10 mg tablet 10 mg PO DAILY 03/21/22 03/21/22 History Allergies Allergy/AdvReac Type Severity Reaction Status Date / Time No Known Allergies Allergy Verified 03/28/22 06:55 Vital Signs Vital Signs - 24 hr 03/28/22 06:55 Temperature 97 F L Pulse Rate 95 Respiratory Rate 18 Blood Pressure 101/63 Pulse Oximetry 99 Oxygen Delivery Room Air Exam Narrative: Physical exam reveals patient to be alert. Vital signs stable. HEENT exam is unremarkable. Patient is anicter
[2022-03-28 08:15] VITALS: BP 97/64; PULSE 72; RESP 18; O2SAT 99
[2022-03-28 08:25] VITALS: BP 103/67; PULSE 78; RESP 19; O2SAT 99
[2022-03-28 08:35] VITALS: BP 108/73; PULSE 76; RESP 22; O2SAT 100
== END 2022-03-28 08:45 | disposition home or self-care (01) ==
PROVIDERS: PCP Family Medicine; Visit Provider Internal Medicine Gastroenterology
PROC: 0DJD8ZZ Inspection of Lower Intestinal Tract, Via Natural or Artificial Opening Endoscopic (ICD-10-PCS; CPT 45378; principal; 2022-03-28 08:00)
DX: Z12.11 Encounter for screening for malignant neoplasm of colon (principal); K64.8 Other hemorrhoids; K57.30 Diverticulosis of large intestine without perforation or abscess without bleeding; D12.8 Benign neoplasm of rectum; Z85.038 Personal history of other malignant neoplasm of large intestine; Z98.0 Intestinal bypass and anastomosis status; Z90.49 Acquired absence of other specified parts of digestive tract; I10 Essential (primary) hypertension; K21.9 Gastro-esophageal reflux disease without esophagitis; E11.42 Type 2 diabetes mellitus with diabetic polyneuropathy; I25.10 Atherosclerotic heart disease of native coronary artery without angina pectoris; Z79.84 Long term (current) use of oral hypoglycemic drugs; Z79.82 Long term (current) use of aspirin; Z95.5 Presence of coronary angioplasty implant and graft; Z95.1 Presence of aortocoronary bypass graft; Z87.891 Personal history of nicotine dependence
CPT/HCPCS: 45385; 82948; 88305; J2704; J7120

== ENCOUNTER 2022-07-06 10:41 | Outpatient (CLI) | payer MEDICARE, SELFPAY | END 2022-07-06 10:42 | disposition home or self-care (01) | LOC: ANHAUDIO 10:42 | PROVIDERS: PCP Family Medicine; Visit Provider Family Medicine | DX: H90.3 Sensorineural hearing loss, bilateral (principal) | CPT/HCPCS: 92557; 92567 ==

== ENCOUNTER 2023-01-22 05:48 | Emergency (ER) | payer MEDICARE, SELFPAY ==
[2023-01-22] VITALS (22 sets, daily range): BP systolic 112–158; BP diastolic 75–97; PULSE 63–98; RESP 12–20; TEMP 36.8; O2SAT 94–100
--- NOTE | ~2023-01-22 | XR_ITS ---
XR chest 2V DATE: 01/22/2023 06:24 INDICATION: Chest pain, dizziness TECHNIQUE: PA and lateral views COMPARISON: 07/04/2022 PA and lateral chest FINDINGS: Status post sternotomy. Heart size is within normal limits. Mild aortic unfolding. No hilar or mediastinal enlargement. No pulmonary infiltrate or consolidation, pleural effusion or pulmonary vascular congestion or pneumo thorax is detected. Surgical clips, right upper quadrant, likely due to to cholecystectomy. Surgical clips are also noted in the left upper quadrant. IMPRESSION: No active cardiac pulmonary disease or significant change since 07/04/2022 Reviewed, dictated and finalized at location A. IMPRESSION: No active cardiac pulmonary disease or significant change since 06/16
--- NOTE | 2023-01-22 05:50 | ECG_ITS ---
Measurements Intervals [place] Rate: 74 P: 89 OK: 171 QRS: -54 QRSD: 134 T: 113 QT: 398 QTc: 444 Interpretive Statements SINUS RHYTHM INTRAVENTRICULAR CONDUCTION DELAY [130+ ms QRS DURATION] POSSIBLE ANTERIOR MYOCARDIAL INFARCTION , OF INDETERMINATE AGE [30 ms Q WAVE IN V3/V4, OR R < 0.2 mV IN V4] ABNORMAL ECG COMPARED TO ECG 07/04/2022 22:39:47 INTRAVENTRICULAR CONDUCTION DELAY NOW PRESENT Electronically Signed On 01-22-2023 8:52:31 CDT by Shaun Ramirez M.D.
[2023-01-22] MEDS: NITROGLYCERIN SL 0.4 MG TABLET SUBLINGUAL (06:02)
--- NOTE | 2023-01-22 06:03 | ED.CHESTPAIN ---
HPI - Chest Pain General Chief Complaint: Chest Pain <Eddie Carter MD - Last Filed: 01/22/23 20:14> Stated Complaint: chest pain <Eddie Carter MD - Last Filed: 01/22/23 20:14> Time Seen by Provider: 01/22/23 05:49 <Eddie Carter MD - Last Filed: 01/22/23 20:14> History of Present Illness HPI narrative: 67-year-old male presented the ED for evaluation of chest pain that started approximate 2 hours prior to arrival. Patient does have a significant history of coronary disease and has a low ejection fraction. Patient states few weeks ago he did have an echocardiogram and does follow-up with Dr. Thomas. <Eddie Carter MD - Last Filed: 01/22/23 20:14> Related Data Home Medications: Home Medications Medication Instructions Recorded Confirmed aspirin 81 mg capsule 81 mg PO DAILY 03/21/22 03/21/22 escitalopram oxalate 10 mg tablet 10 mg PO DAILY 03/21/22 03/21/22 <Eddie Carter MD - Last Filed: 01/22/23 20:14> Allergies/Adverse Reactions: Allergies Allergy/AdvReac Type Severity Reaction Status Date / Time No Known Allergies Allergy Verified 01/22/23 06:00 <Eddie Carter MD - Last Filed: 01/22/23 20:14> Review of Systems Review of Systems: All systems reviewed & are unremarkable except as noted in HPI and below <Eddie Carter MD - Last Filed: 01/22/23 20:14> [facility] Past Medical History Medical History: Medical History (Updated 01/22/23 @ 08:46 by Kirk Klein MD) Cancer of transverse colon Status post right hemicolectomy. Carpal tunnel syndrome Coronary artery disease Status post CABG. Diabetic peripheral neuropathy Gastroesophageal reflux disease Hiatal hernia Hypertension Insulin dependent type 2 diabetes mellitus <Eddie Carter MD - Last Filed: 01/22/23 20:14> Surgical History Surgical History: Surgical History Finger amputee Right 2nd finger secondary to crush injury. History of arthroscopy of right knee History of cardiac catheterization History of carpal tunnel release History of colonoscopy with polypectomy History of coronary artery bypass graft History of coronary artery stent placement History of hernia repair (2019) History of incision and drainage Complex I&D Right foot infected diabetic foot ulcer measuring approximately 5x4cm. on 12/19/21 History of repair of hiatal hernia (2001) History of right hemicolectomy with ileocolic anastomsis in 2019 Status post debridement (12/2020) Right foot abscess, osteomyelitis. <Eddie Carter MD - Last Filed: 01/22/23 20:14> Family History Family History: Family History Sibling Family history of malignant neoplasm Father Family history of chronic obstructive pulmonary disease Hypertension Heart disease Mother Hypertension Cancer Sibling Cancer Sibling Cancer Sibling Cancer <Eddie Carter MD - Last Filed: 01/22/23 20:14> Social History Social History: Social History Social History: The patient is and lives with his and 1 son in [place]. They have 4 children. 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 No alcohol or illicit substance abuse. Surrogate medical decision maker: Tash Orantes, spouse. Code status: Full code. Years smoked: 10 Smoking status: Former smoker Tobacco type: cigarettes Living arrangements: with family Occupation/Education: retired Spiritual care concerns: No <Eddie Carter MD - Last Filed: 01/22/23 20:14> Exam Narrative: APPEARANCE: Well appearing, no pain, no distress, well-nourished. HEAD: normocephalic, atraumatic. EYES: PERRLA/EOMI, conjunctivae clear. NOSE: Normal no drainage NECK: Supple. No adeno
[2023-01-22] MEDS: HYDROmorphone HCL INJ (*CRX) 1 MG/ML SYR 0.5 MG IV PUSH (06:09)
[2023-01-22] MEDS: NITROGLYCERIN OINTMENT 1 INCH DOSE TRANSDERM (06:10)
[2023-01-22 06:15] LABS: Basophils Percent Auto 0.6 % (0.2-1.2); Eosinophils Absolute Auto 0.1 K/mm3 (0-0.3); Eosinophils Percent Auto 2.2 % (0-4.4); Hematocrit 37.6 % (42.0-52.0); Immature Granulocyte Absolute 0.01 K/mm3 (0.00-0.031); Immature Granulocyte Percent A 0.2 % (0-0.5); Lymphocytes Absolute Auto 1.61 K/mm3 (0.9-3.2); Lymphocytes Percent Auto 32.5 % (18.3-44.2); Mean Corpuscular HGB Conc 34.6 g/dl (32-36); Mean Corpuscular Hemoglobin 31.3 pg (26-34); Mean Corpuscular Volume 90.4 fl (80-100); Mean Platelet Volume 9.9 fl (7.4-10.4); Monocytes Absolute Auto 0.5 K/mm3 (0.1-0.6); Monocytes Percent Auto 10.7 % (2.6-8.5); Neutrophils Absolute Auto 2.7 K/mm3 (1.3-6.7); Neutrophils Percent Auto 53.8 % (45.5-73.1); Platelet Count Result 196 k/mm3 (150-375); Red Blood Count 4.16 M/mm3 (4.6-6.20); Red Cell Distribution Width 11.5 % (11.5-14.5)
[2023-01-22 06:27] LABS: INR 0.9; Prothrombin Time 12.5 Seconds (11.1-14.7)
[2023-01-22 06:28] LABS: Alanine Aminotransferase 17 U/L (6-50); Albumin Level 3.9 g/dL (3.5-5.1); Alkaline Phosphatase 52 U/L (38-126); Anion Gap 5 mmol/L (8-16); Aspartate Amino Transferase 24 U/L (17-59); Bilirubin,Total 1.1 mg/dL (0.2-1.3); Blood Urea Nitrogen 18 mg/dL (9-20); Calcium 8.5 mg/dL (8.4-10.2); Carbon Dioxide 29 mmol/L (22-30); Chloride 100 mmol/L (98-107); Estimated CRCL calculation 110 ml/min; Estimated Glomerular Filt Rate > 60; Glucose 322 mg/dL (65-110); Lipase 38 U/L (23-300); Partial Thromboplastin Time 26.6 SECONDS (22.3-36.8); Potassium 4.1 mmol/L (3.4-5.0); Sodium 134 mmol/L (137-145)
[2023-01-22 06:39] LABS: Troponin I 0.022 ng/mL (0.000-0.034)
--- NOTE | 2023-01-22 07:40 | PC.NURSE ---
pt resting quietly on stretcher. states pain is greatly improved than upon arrival. at bedside. aware of plan to draw troponin at 0900
== END 2023-01-22 08:50 | disposition left against medical advice (07) ==
PROVIDERS: Emergency Medicine; Emergency Provider Emergency Medicine; PCP Family Medicine
DX: R07.9 Chest pain, unspecified (principal); I25.10 Atherosclerotic heart disease of native coronary artery without angina pectoris; I10 Essential (primary) hypertension; E11.42 Type 2 diabetes mellitus with diabetic polyneuropathy; K44.9 Diaphragmatic hernia without obstruction or gangrene; K21.9 Gastro-esophageal reflux disease without esophagitis; Z95.1 Presence of aortocoronary bypass graft; Z95.5 Presence of coronary angioplasty implant and graft; Z87.891 Personal history of nicotine dependence; Z90.49 Acquired absence of other specified parts of digestive tract; Z79.84 Long term (current) use of oral hypoglycemic drugs; Z79.82 Long term (current) use of aspirin; I45.9 Conduction disorder, unspecified; R94.31 Abnormal electrocardiogram [ECG] [EKG]
CPT/HCPCS: 36415; 71046; 80053; 83690; 84484; 85025; 85610; 85730; 93005; 96374; 99284; A9270; J1170

== ENCOUNTER 2023-11-27 16:09 | Emergency (ER) | payer MEDICARE, SELFPAY ==
--- NOTE | ~2023-11-27 | CT_ITS ---
CT OF right foot EXAMINATION: CT foot RT w con DATE: 11/27/2023 22:03 INDICATION: Concern for necrotic fasciitis TECHNIQUE: Computed tomography (CT) of the right foot was performed without intravenous contrast. Aut omated exposure control and iterative reconstruction technique were employed. The dose-length product was 503.18 mGy-cm. COMPARISON: X-ray right foot, same date FINDINGS: Normal mineralization. Periarticular erosions with sclerotic and overhanging margins in the distal fi rst phalanx and third and fourth metatarsal heads as well as the proximal third and fourth phalanges. These changes may be related to chronic changes of gout, particularly in the first phalanx. Chronic arthritic, postsurgical, or postinfectious changes may be involved in isolation or combination in the third and fourth rays. No early focal osseous erosion. Large ulceration of the soft tissues of the b all of foot deep to the third and fourth metatarsal heads. No subcutaneous gas. No soft tissue absces s. Diffuse subcutaneous edema/inflammation. IMPRESSION: Soft tissue ulceration at the ball of foot. Diffuse subcutaneous edema or inflammation of the foot, correlate for findings of cellulitis. No deep soft tissue abscess detected. No definite CT evidence of osteomyelitis, however arthritic and chronic changes complicate evaluation . MR of the foot without and with contrast would be helpful for further characterization. Reviewed, dictated and finalized at location K. IMPRESSION: Soft tissue ulceration at the ball of foot. Diffuse subcutaneous edema or inflammation of the foot, correlate for findings of cellulitis. No deep soft tissue abscess detected. No definite CT evidence of osteomyelitis, however arthritic and chronic changes complicate evaluation. MR of the foot without and with contrast would be helpf ul for further characterization.
--- NOTE | ~2023-11-27 | XR_ITS ---
EXAM: XR foot RT 2V DATE: 11/27/2023 17:26 HISTORY: R foot injury, . COMPARISON: 12/18/2021. FINDINGS: Normal mineralization. No fracture or dislocation. Chronic postsurgical/post infectious ch anges in the proximal third and fourth proximal phalanges. No lytic or blastic lesion. Joint spaces a re maintained. Punched-out erosion in the distal medial aspect of the right first proximal phalange, may represent quiescent gout in the appropriate context. Forefoot and the third through fifth toe sof t tissue swelling. Soft tissue gas at the ball of the foot. IMPRESSION: No radiographic evidence of osteomyelitis or acute fracture/dislocation. Soft tissue swel ling with subcutaneous gas at the ball of foot may represent ulceration or abscess. Diffuse forefoot soft tissue swelling with swelling of the third through fifth toes. Reviewed, dictated and finalized at location K. IMPRESSION: No radiographic evidence of osteomyelitis or acute fracture/disloca tion. Soft tissue swelling with subcutaneous gas at the ball of foot may repres ent ulceration or abscess. Diffuse forefoot soft tissue swelling with swelling of the third through fifth toes.
[2023-11-27 16:47] VITALS: BP 143/86; PULSE 85; RESP 15; TEMP 36.7; O2SAT 99
--- NOTE | 2023-11-27 16:57 | ED.WOUNDLAC ---
HPI - Wound/Laceration General Chief Complaint: Wound/Laceration <Telma Gandhi APRN - Last Filed: 11/29/23 17:01> Stated Complaint: wound <Telma Gandhi APRN - Last Filed: 11/29/23 17:01> Time Seen by Provider: 11/27/23 16:52 <Telma Gandhi APRN - Last Filed: 11/29/23 17:01> Focused HPI: Pt is a 68-year-old male presenting to the ER with a R foot wound. He reports he didn't realize he had a wound on the bottom of his foot until he inspected it this morning and saw skin hanging down. There is an open area of the wound that is adjacent to a serous-filled blister on the ball of his foot. Pt denies pain. He reports he initially injured the foot several years ago when he stepped on a nail. Pt has had surgery on the site and was a patient at the wound clinic. Pt is diabetic and reports he does not check his sugar at home. GENERAL: Well-appearing, well-nourished, and in no acute distress. HEAD: Normocephalic, atraumatic. CHEST: Clear to auscultation. ?No respiratory distress. HEART: Regular rate and rhythm.? NEURO: ?Alert and oriented x3. Patient screened in triage and initial orders placed.? ?Additional care and disposition to be based upon?diagnostic testing and treatment. <Telma Gandhi APRN - Last Filed: 11/29/23 17:01> Source: patient and family <Telma Gandhi APRN - Last Filed: 11/29/23 17:01> Mode of arrival: wheelchair <Telma Gandhi APRN - Last Filed: 11/29/23 17:01> Limitations: no limitations <Telma Gandhi APRN - Last Filed: 11/29/23 17:01> History of Present Illness HPI narrative: This is a 68-year-old male with a past medical history significant for diabetes, hypertension, colon cancer history, coronary disease. Patient states that he has a chronic wound on the plantar surface of his right leg that resulted after he stepped on a coleen nail 3 years prior. He has had multiple surgeries on that extremity infections requiring IV antibiotics and PICC line placement. Patient states 2 days prior he was walking barefoot on his deck when he accidentally scratched it on something on the floor and sustained a open wound. Wound has been aggressively increasing in size and the foot is more swollen. He noticed some drainage that initially was serous and now is purulent. Significant swelling on the dorsal aspect and up his right leg. No systemic features such as nausea, vomiting, fever, chills, shortness of breath, diarrhea. Is able to ambulate. No other associated traumas. Tetanus is up-to-date. <Viet Lion MD - Last Filed: 11/27/23 22:40> Related Data Home Medications: Home Medications Medication Instructions Recorded Confirmed aspirin 81 mg capsule 81 mg PO DAILY 03/21/22 08/04/23 escitalopram oxalate 10 mg tablet 10 mg PO DAILY 03/21/22 08/04/23 carvedilol 25 mg tablet 25 mg PO BID 03/07/23 08/04/23 meclizine 25 mg tablet 25 mg PO BID PRN 03/07/23 08/04/23 sacubitril 24 mg-valsartan 26 mg 1 tablet PO DAILY 03/07/23 08/04/23 tablet (Entresto) spironolactone 25 mg tablet 25 mg PO DAILY 03/07/23 08/04/23 <Telma Gandhi APRN - Last Filed: 11/29/23 17:01> Allergies/Adverse Reactions: Allergies Allergy/AdvReac Type Severity Reaction Status Date / Time No Known Allergies Allergy Verified 08/04/23 11:20 <Telma Gandhi APRN - Last Filed: 11/29/23 17:01> Review of Systems Review of Systems: As reviewed above in HPI <Viet Lion MD - Last Filed: 11/27/23 22:40> [facility] Past Medical History Medical History: Medical History Carpal tunnel syndrome Chronic systolic (congestive) heart failure Coronary artery disease Status post CABG. 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
[2023-11-27 18:14] LABS: Basophils Percent Auto 0.5 % (0.2-1.2); Eosinophils Absolute Auto 0.1 K/mm3 (0-0.3); Eosinophils Percent Auto 1.7 % (0-4.4); Hematocrit 36.6 % (42.0-52.0); Hemoglobin 12.9 g/dL (14.0-18.0); Immature Granulocyte Absolute 0.04 K/mm3 (0.00-0.031); Immature Granulocyte Percent A 0.5 % (0-0.5); Lymphocytes Absolute Auto 1.43 K/mm3 (0.9-3.2); Lymphocytes Percent Auto 18.2 % (18.3-44.2); Mean Corpuscular HGB Conc 35.2 g/dl (32-36); Mean Corpuscular Hemoglobin 31.7 pg (26-34); Mean Corpuscular Volume 89.9 fl (80-100); Mean Platelet Volume 9.6 fl (7.4-10.4); Monocytes Absolute Auto 0.6 K/mm3 (0.1-0.6); Monocytes Percent Auto 7.1 % (2.6-8.5); Neutrophils Absolute Auto 5.7 K/mm3 (1.3-6.7); Platelet Count Result 238 k/mm3 (150-375); Red Blood Count 4.07 M/mm3 (4.6-6.20); Red Cell Distribution Width 11.6 % (11.5-14.5); White Blood Count 7.9 K/mm3 (4.5-10.0)
[2023-11-27 18:25] LABS: INR 0.9; Prothrombin Time 12.8 Seconds (11.1-14.7)
[2023-11-27 18:26] LABS: Partial Thromboplastin Time 22.4 Seconds (22.3-36.8)
[2023-11-27 18:28] LABS: Alanine Aminotransferase 20 U/L (6-50); Albumin Level 4.1 g/dL (3.5-5.1); Alkaline Phosphatase 88 U/L (38-126); Anion Gap 10 mmol/L (4-12); Aspartate Amino Transferase 25 U/L (17-59); Blood Urea Nitrogen 16 mg/dL (9-20); Calcium 9.1 mg/dL (8.4-10.2); Carbon Dioxide 27 mmol/L (22-30); Chloride 95 mmol/L (98-107); Estimated CRCL calculation 93 ml/min; Estimated Glomerular Filt Rate > 60; Glucose 359 mg/dL (65-110); Potassium 4.1 mmol/L (3.4-5.0); Sodium 132 mmol/L (137-145)
[2023-11-27 18:29] LABS: Lactic Acid Reflex 0.9 mmol/L (0.7-2.0)
[2023-11-27 18:37] LABS: CRP 1.2 mg/dL (<1.0)
[2023-11-27 18:47] LABS: Erythrocyte Sedimentation Rate 39 mm/hr (0-20)
[2023-11-27] MEDS: PIPERACILLIN/TAZ 4.5G/NS 100ML 4.5 GM/100 ML BAG IVPB (20:41)
[2023-11-27 20:52] LABS: Hemoglobin A1C 13.6 % (<5.7)
[2023-11-27] MEDS: LACTATED RINGERS 1,000 ML 999 ML IV CONT (21:19)
[2023-11-27] MEDS: VANCOMYCIN 2,000 MG/NS 500 ML 2,000 MG/500 ML BAG 250 MG IVPB (21:20)
[2023-11-27 22:46] VITALS: BP 160/85; PULSE 73; RESP 18; TEMP 37.1; O2SAT 100
--- NOTE | 2023-11-27 22:54 | PC.NURSE ---
Pt got accepted by Dr Antoine at [facility] (room 557). Nurse report phone # is [phone]
[2023-11-28 00:31] VITALS: BP 156/82; PULSE 75; RESP 16; O2SAT 100
== END 2023-11-28 00:36 | disposition short-term general hospital (02) ==
PROVIDERS: Registered Nurse; Emergency Provider Student in an Organized Health Care Education/Training Program; PCP Family Medicine
DX: E11.621 Type 2 diabetes mellitus with foot ulcer (principal); L97.411 Non-pressure chronic ulcer of right heel and midfoot limited to breakdown of skin; E11.9 Type 2 diabetes mellitus without complications; I25.10 Atherosclerotic heart disease of native coronary artery without angina pectoris; I11.0 Hypertensive heart disease with heart failure; I50.9 Heart failure, unspecified; Z87.891 Personal history of nicotine dependence; W45.0XXA Nail entering through skin, initial encounter
CPT/HCPCS: 36415; 73620; 73701; 80053; 83036; 83605; 84443; 85025; 85610; 85652; 85730; 86140; 87040; 96365; 96366; 96367; 99285; J2543; J3370; J7120; Q9967

== ENCOUNTER 2024-02-27 07:13 | Outpatient (RCR) | payer MEDICARE, SELFPAY ==
[2023-12-07 10:00] VITALS: BMI 24.4
--- NOTE | 2024-01-02 09:02 | P.CONOP_ITS ---
Assessment and Plan Assessment and plan (1) Diabetic ulcer of right foot: Qualifiers: Diabetic foot ulcer location: other Diabetes mellitus type: type 2 Non-pressure ulcer stage: with necrosis of muscle Qualified Code(s): E11.621 - Type 2 diabetes mellitus with foot ulcer; L97.513 - Non-pressure chronic ulcer of other part of right foot with necrosis of muscle Code(s): E11.621 - Type 2 diabetes mellitus with foot ulcer; L97.519 - Non-pressure chronic ulcer of other part of right foot with unspecified severity Status: Inactive Assessment and Plan: New patient evaluation for chief complaint right diabetic foot ulcer. History, physical exam and radiographs reviewed with the patient. Peripheral neuropathy and type 2 diabetes. History of previous infection with osteo right foot. Radiographs show deformity of the 3rd and 4th MTP joints now with extension deformity of the toes and increased plantar pressure of the forefoot. No evidence of infection at this time. Ulcer indicated for debridement due to necrotic tissue and callus. Discussed the condition, nature, etiology and course of natural history with the patient. Treatment options including surgical and nonoperative treatment were reviewed. Risks and benefits of each as well as alternatives reviewed. The patient's questions were answered. Conservative treatment compression and elevation. Difficult treatment as the patient has insisted that he continue to work which requires weight-bearing and driving with the right foot. He is unable to use diabetic unloading boot for pressure relief due to requirements for driving. He is currently using regular shoe. Previous recommendations for custom diabetic shoe wear and inserts unfilled. Treatment recommendations discussed in detail including operative treatment for the deformity of the toes and debridement of the ulcer with long-term offloading of foot to effect healing of the ulcer. Patient has declined this. Recommend at the very least that he continue with daily dressing changes and offloading with a postoperative shoe. He is indicated for diabetic shoe wear and inserts. Prescription will be sent once he indicates his preference for custom fabrication. Indicated for debridement today in the [facility]. Follow-up in 2 weeks for re-evaluation. (2) Peripheral sensory neuropathy due to type 2 diabetes mellitus: Code(s): E11.42 - Type 2 diabetes mellitus with diabetic polyneuropathy Status: Acute Plan Discussed nonoperative and operative treatment options with the patient. Risks and benefits of each as well as alternatives were reviewed. All of the patient's questions were answered. The risks of surgery reviewed including but not limited to: Neurovascular damage, wound complication, infection, blood clot, pulmonary embolus, stroke, myocardial infarction, and anesthetic risks up to and including . Continued pain and possible dysfunction were explained. Specific risks of the procedure including later recurrence of deformity. No guarantees were offered. If complications occur, the patient understands the need for further treatment, possible further surgery. Patient verbalizes understanding and wishes to proceed. PLAN: Excisional debridement of right diabetic foot ulcer History of Present Illness HPI Consult date: 01/02/24 Requesting physician: Ashwin Lawler MD Chief complaint: E11.621 Type 2 diabetes with foot ulcer Right foot Narrative: 68-year-old gentleman who presents to the [facility] for right diabetic foot ulcer. Orthopedic team has been asked to consult to consider further treatment of the right foot. History of prior infection on the plantar aspect of the right forefoot which required debridement of the bone. He now has deformity of the 3rd and 4th toe and a chronic callus on the plantar aspect. Patient states about 4 weeks ago the callus pulled off when he was ambulating barefoot. He then developed swelling, redness and drainage from the right foot. He was transferred to [facility] where he left AMA due to his occupational requirements. He then presented to the [facility] where they have been doing dressing changes. His care has been impeded by his need to continue to work which involves driving with the right foot. Review of Systems Constitutional: Constitutional: Denies fever(s) Eyes: Eyes: Denies blurry vision ENT: Reports Normal hearing present Cardiovascular: Cardiovascular: Denies chest pain and Denies dyspnea Respiratory: Respiratory: Denies dyspnea and Denies wheezing Gastrointestinal: Gastrointestinal: Denies abdominal pain Genitourinary: Genitourinary: Denies urinary urgency Musculoskeletal: Musculoskeletal: Reports as per HPI and Denies numbness Integumentary/Breasts: Skin/Breast: Denies changing lesions and Denies sores Neurologic: Reports Normal hearing present, Denies behavioral changes, Denies confusion, Denies numbness and Denies convulsions Psychiatric: Psychiatric: Denies behavioral changes, Denies confusion and Denies hallucinations Endocrine: Endocrine: Denies heat intolerance Hematologic/Lymphatic: Hematologic/Lymphatic: Denies easy bleeding Allergic/Immunologic: Allergic/Immunologic: Denies wheezing PMFSH Past Medical History Medical History (Updated 01/02/24 @ 09:08 by Blair Coreas MD) Carpal tunnel syndrome Chronic systolic (congestive) heart failure Coronary artery disease Status post CABG. 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 History of arthroscopy of right knee History of cardiac catheterization History of carpal tunnel release History of colonoscopy with polypectomy History of coronary artery bypass graft History of coronary artery stent placement History of hernia repair (2019) History of incision and drainage Complex I&D Right foot infected diabetic foot ulcer measuring approximately 5x4cm. on 12/19/21 History of repair of hiatal hernia (2001) History of right hemicolectomy with ileocolic anastomsis in 2019 Status post debridement (12/2020) Right foot abscess, osteomyelitis. Family History Family History Sibling Family history of malignant neoplasm Father Family history of chronic obstructive pulmonary disease Hypertension Heart disease Mother Hypertension Cancer Sibling Cancer Sibling Cancer Sibling Cancer Social History Social History Social History: The patient is and lives with his and 1 son in [place]. They have 4 children. 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 No alcohol or illicit substance abuse. Surrogate medical decision maker: Tash Orantes, spouse. Code status: Full code. Years smoked: 10 Smoking status: Former smoker Tobacco type: cigarettes Alcohol intake: never Substance use: never Substance use type: does not use Do You Feel Safe in your Home?: Yes Lack of Transportation: No Lack of Food: Never True Current Housing: I Have Housing Concerned About Future Housing: No Difficulty Paying Gas/Electric Bills: No Difficulty Paying for Meds: No Currently Unemployed: No Education: High School Diploma/GED Living arrangements: with family Occupation/Education: retired Gender identity (if verbalized by the patient): Male Sexual Orientation (if Verbalized by the Patient): Straight or Heterosexual Spiritual care concerns: No Meds Home Medications and Allergies Home Medications Medication Instructions Recorded Confirmed Type aspirin 81 mg capsule 81 mg PO DAILY 03/21/22 12/07/23 History carvedilol 25 mg tablet 25 mg PO BID 03/07/23 12/07/23 History meclizine 25 mg tablet 25 mg PO BID PRN Dizziness 03/07/23 12/07/23 History rosuvastatin 5 mg tablet 5 mg PO DAILY #90 tabs 03/07/23 12/07/23 Rx sacubitril 24 mg-valsartan 26 mg 1 tablet PO DAILY 03/07/23 12/07/23 History tablet (Entresto) spironolactone 25 mg tablet 25 mg PO DAILY 03/07/23 12/07/23 History 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 sensor (Dexcom G7 #3 ea 08/04/23 12/07/23 Rx Sensor device) metformin 500 mg tablet,extended 1,000 mg PO DAILY #60 tabs 08/24/23 12/07/23 Rx release 24hr (osmotic) Dexcom G7 Sensor (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 #1 ea 12/05/23 12/07/23 Rx sensor) Jardiance 10 mg tablet 10 mg PO DAILY 30 days #30 tabs 12/05/23 12/07/23 Rx (empagliflozin) Lantus Solostar U-100 Insulin 100 10 unit (0.1 mL) subcut QPM #15 mL 12/05/23 12/07/23 Rx unit/mL (3 mL) subcutaneous pen (insulin glargine) clopidogrel 75 mg tablet 75 mg PO DAILY 12/05/23 12/07/23 History escitalopram oxalate 10 mg tablet 10 mg PO DAILY #90 tabs 12/05/23 12/07/23 Rx Allergies Allergy/AdvReac Type Severity Reaction Status Date / Time No Known Allergies Allergy Verified 12/05/23 10:16 Exam Const: General: healthy appearing; No in distress or confusion Orientation/consciousness: oriented to person, oriented to place, oriented to time and No confusion HENMT: Head: normal to inspection, normocephalic and atraumatic Eyes: Conjunctivae: conjunctivae normal Sclera: sclerae normal Neck: Neck: supple and nontender Resp: Effort & Inspection: normal respiratory effort and no audible wheezes Cardio: Rhythm: regular rhythm Skin: General skin exam: no rashes or lesions noted Neuro: General: oriented to person, oriented to place, oriented to time and No confusion Extrem: Right upper extremity: normal to inspection Left upper extremity: normal to inspection Right lower extremity: ankle Details: normal to inspec tion, abnormal ROM Details: with range as follows (ankle dorsiflexion -10 degrees, plantar flexion 40?, inversion 15?, eversion 15?) and other ( good stability all directions); no tenderness, no swelling and no ecchymosis and foot Details: abnormal to inspection ( extension deformity of the 3rd and 4th toe) Details: other ( 1 x 1 cm ulcer plantar forefoot under the 4th metatarsal head surrounding callus. No surrounding erythema. No drainage.), abnormal ROM of toe ( hallux MTP dorsiflexion 40, plantar flexion 20?), vascular exam Details: dorsalis pedis pulse present ( Decreased) and normal capillary refill, tendon exam Details: active flexion abnormal and active extension abnormal, motor- sensory exam Details: two point discrimination abnormal Location: in all toes and light-touch abnormal Location: in all toes and other (Hallux metatarsophalangeal motion 20? dorsiflexion/10? plantar flexion) Left lower extremity: ankle Details: normal to inspection and abnormal ROM Details: with range as follows (ankle dorsiflexion -10 degrees, plantar flexion 40?, inversion 15?, eversion 15?); no tenderness and no swelling and foot Details: normal capillary refill, abnormal ROM of toe, vascular exam (2+DP pulse, good cap refill all toes), tendon exam active flexion abnormal of the great toe and active extension abnormal of the great toe and motor-sensory exam two point discrimination abnormal and light-touch abnormal in all toes; no tenderness and no crepitus Psych: Affect: normal affect Results Labs Labs: All other labs normal. Podiatry Debridement Skin Pre Procedure Consent was obtained, Procedures/risks were explained, Questions were answered, Correct patient identified and Correct side and site confirmed Podiatry Debridement Skin Site(s) of debridement: Right 4th MP J Sent to Pathology: No Debridement Depth: Skin,subcutaneous tissue, and muscle Size (CM): 1 Whitman's classificatoin for foot ulcers: Grade 3 Procedure Debridement skin, subcut tissue/muscle ( 15 blade knife used to excise skin, subcutaneous tissue, muscle right foot) Post Procedure Patient tolerated the procedure well?: Tolerated procedure well Comments: post debridement dimensions right foot ulcer 10 x 8 x 1 mm
--- NOTE | 2024-01-16 09:19 | PCWOUND ---
WOCN NOTE Patient did not show up for his scheduled appointment. Voicemail was left for patient's spouse Tash to contact wound center for rescheduling.
--- NOTE | 2024-01-23 08:50 | P.HP_ITS ---
H&P: HPI History of Present Illness Date/Time: 01/23/24 08:50 Chief Complaint: Right foot wound. Narrative: 68-year-old gentleman who presents to the [facility] for right diabetic foot ulcer. History of prior infection on the plantar aspect of the right forefoot which required debridement of the bone. He now has deformity of the 3rd and 4th toe and a chronic callus on the plantar aspect. He was previously evaluated by Dr. Coreas and restarted wound care. He began daily dressing changes. No new conerns. Review of Systems 2 Review of Systems: All systems reviewed & are unremarkable except as noted in HPI and below Constitutional: Constitutional: Denies fever(s) Eyes: Eyes: Denies blurry vision ENT: Reports Normal hearing present Cardiovascular: Cardiovascular: Denies chest pain and Denies dyspnea Respiratory: Respiratory: Denies dyspnea and Denies wheezing Gastrointestinal: Gastrointestinal: Denies abdominal pain Genitourinary: Genitourinary: Denies urinary urgency Musculoskeletal: Musculoskeletal: Reports as per HPI and Denies numbness Integumentary/Breasts: Skin/Breast: Denies changing lesions and Denies sores Neurologic: Reports Normal hearing present, Denies behavioral changes, Denies confusion, Denies numbness and Denies convulsions Psychiatric: Psychiatric: Denies behavioral changes, Denies confusion and Denies hallucinations Endocrine: Endocrine: Denies heat intolerance Hematologic/Lymphatic: Hematologic/Lymphatic: Denies easy bleeding Allergic/Immunologic: Allergic/Immunologic: Denies wheezing PMF Past Medical History Medical History Carpal tunnel syndrome Chronic systolic (congestive) heart failure Coronary artery disease Status post CABG. 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 History of arthroscopy of right knee History of cardiac catheterization History of carpal tunnel release History of colonoscopy with polypectomy History of coronary artery bypass graft History of coronary artery stent placement History of hernia repair (2019) History of incision and drainage Complex I&D Right foot infected diabetic foot ulcer measuring approximately 5x4cm. on 12/19/21 History of repair of hiatal hernia (2001) History of right hemicolectomy with ileocolic anastomsis in 2019 Status post debridement (12/2020) Right foot abscess, osteomyelitis. Family History Family History Sibling Family history of malignant neoplasm Father Family history of chronic obstructive pulmonary disease Hypertension Heart disease Mother Hypertension Cancer Sibling Cancer Sibling Cancer Sibling Cancer Social History Social History Social History: The patient is and lives with his and 1 son in [place]. They have 4 children. 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 No alcohol or illicit substance abuse. Surrogate medical decision maker: Tash Orantes, spouse. Code status: Full code. Years smoked: 10 Smoking status: Former smoker Tobacco type: cigarettes Alcohol intake: never Substance use: never Substance use type: does not use Do You Feel Safe in your Home?: Yes Lack of Transportation: No Lack of Food: Never True Current Housing: I Have Housing Concerned About Future Housing: No Difficulty Paying Gas/Electric Bills: No Difficulty Paying for Meds: No Currently Unemployed: No Education: High School Diploma/GED Living arrangements: with family Occupation/Education: retired Gender identity (if verbalized by the patient): Male Sexual Orientation (if Verbalized by the Patient): Straight or Heterosexual Spiritual care concerns: No Meds Home Medications and Allergies Home Medications Medication Instructions Recorded Confirmed Type aspirin 81 mg capsule 81 mg PO DAILY 03/21/22 12/07/23 History carvedilol 25 mg tablet 25 mg PO BID 03/07/23 12/07/23 History meclizine 25 mg tablet 25 mg PO BID PRN Dizziness 03/07/23 12/07/23 History rosuvastatin 5 mg tablet 5 mg PO DAILY #90 tabs 03/07/23 12/07/23 Rx sacubitril 24 mg-valsartan 26 mg 1 tablet PO DAILY 03/07/23 12/07/23 History tablet (Entresto) spironolactone 25 mg tablet 25 mg PO DAILY 03/07/23 12/07/23 History 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 sensor (Dexcom G7 #3 ea 08/04/23 12/07/23 Rx Sensor device) metformin 500 mg tablet,extended 1,000 mg PO DAILY #60 tabs 08/24/23 12/07/23 Rx release 24hr (osmotic) Dexcom G7 Sensor (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 #1 ea 12/05/23 12/07/23 Rx sensor) Jardiance 10 mg tablet 10 mg PO DAILY 30 days #30 tabs 12/05/23 12/07/23 Rx (empagliflozin) Lantus Solostar U-100 Insulin 100 10 unit (0.1 mL) subcut QPM #15 mL 12/05/23 12/07/23 Rx unit/mL (3 mL) subcutaneous pen (insulin glargine) clopidogrel 75 mg tablet 75 mg PO DAILY 12/05/23 12/07/23 History escitalopram oxalate 10 mg tablet 10 mg PO DAILY #90 tabs 12/05/23 12/07/23 Rx Allergies Allergy/AdvReac Type Severity Reaction Status Date / Time No Known Allergies Allergy Verified 12/05/23 10:16 Exam Const: General: healthy appearing; No in distress or confusion Orientation/consciousness: oriented to person, oriented to place, oriented to time and No confusion HENMT: Head: normal to inspection, normocephalic and atraumatic Eyes: Conjunctivae: conjunctivae normal Sclera: sclerae normal Neck: Neck: supple and nontender Resp: Effort & Inspection: normal respiratory effort and no audible wheezes Cardio: Rhythm: regular rhythm Skin: General skin exam: no rashes or lesions noted Neuro: General: oriented to person, oriented to place, oriented to time and No confusion Extrem: Right upper extremity: normal to inspection Left upper extremity: normal to inspection Right lower extremity: ankle Details: normal to inspection, abnormal ROM Details: with range as follows (ankle dorsiflexion -10 degrees, plantar flexion 40?, inversion 15?, eversion 15?) and other ( good stability all directions); no tenderness, no swelling and no ecchymosis and foot Details: abnormal to inspection ( extension deformity of the 3rd and 4th toe) Details: other ( 1 x 1 cm ulcer plantar forefoot under the 4th metatarsal head surrounding callus. No surrounding erythema. No drainage.), abnormal ROM of toe ( hallux MTP dorsiflexion 40, plantar flexion 20?), vascular exam Details: dorsalis pedis pulse present ( Decreased) and normal capillary refill, tendon exam Details: active flexion abnormal and active extension abnormal, motor- sensory exam Details: two point discrimination abnormal Location: in all toes and light-touch abnormal Location: in all toes and other (Hallux metatarsophalangeal motion 20? dorsiflexion/10? plantar flexion) Left lower extremity: ankle Details: normal to inspection and abnormal ROM Details: with range as follows (ankle dorsiflexion -10 degrees, plantar flexion 40?, inversion 15?, eversion 15?); no tenderness and no swelling and foot Details: normal capillary refill, abnormal ROM of toe, vascular exam (2+DP pulse, good cap refill all toes), tendon exam active flexion abnormal of the great toe and active extension abnormal of the great toe and motor-sensory exam two point discrimination abnormal and light-touch abnormal in all toes; no tenderness and no crepitus Other: wound on the plantar aspect of the right 4th MTP joint measures 0.8x0.9x0.1cm. 100% red/pink wound bed. No signs of infection. Psych: Affect: normal affect Assessment and Plan Assessment and plan (1) Diabetic ulcer of right foot: Qualifiers: Diabetic foot ulcer location: other Diabetes mellitus type: type 2 Non-pressure ulcer stage: with necrosis of muscle Qualified Code(s): E11.621 - Type 2 diabetes mellitus with foot ulcer; L97.513 - Non-pressure chronic ulcer of other part of right foot with necrosis of muscle Code(s): E11.621 - Type 2 diabetes mellitus with foot ulcer; L97.519 - Non-pressure chronic ulcer of other part of right foot with unspecified severity Status: Inactive Assessment and Plan: Follow up of right DFU. Patient with a history of peripheral neuropathy and type 2 diabetes. History of previous infection with osteo right foot. Previous radiographs show deformity of the 3rd and 4th MTP joints now with extension deformity of the toes and increased plantar pressure of the forefoot. No evidence of infection at this time. Ulcer indicated for debridement due to callus. Discussed the condition, nature, etiology and course of natural history with the patient. Treatment options including surgical and nonoperative treatment were reviewed. Risks and benefits of each as well as alternatives reviewed. The patient's questions were answered. Conservative treatment compression and elevation. Difficult treatment as the patient has insisted that he continue to work which requires weight-bearing and driving with the right foot. He is unable to use diabetic unloading boot for pressure relief due to requirements for driving. He is currently using regular shoe. Previous recommendations for custom diabetic shoe wear and inserts unfilled. Discussed again today. Treatment recommendations discussed in detail including operative treatment for the deformity of the toes and debridement of the ulcer with long-term offloading of foot to effect healing of the ulcer. Patient has declined this. Recommend at the very least that he continue with daily dressing changes and offloading with a postoperative shoe. He is indicated for diabetic shoe wear and inserts. Prescription will be sent once he indicates his preference for custom fabrication. Indicated for debridement today in the Wound Clinic. Follow-up in 4 weeks for re-evaluation. (2) Peripheral sensory neuropathy due to type 2 diabetes mellitus: Code(s): E11.42 - Type 2 diabetes mellitus with diabetic polyneuropathy Status: Acute Plan Discussed nonoperative and operative treatment options with the patient. Risks and benefits of each as well as alternatives were reviewed. All of the patient's questions were answered. The risks of surgery reviewed including but not limited to: Neurovascular damage, wound complication, infection, blood clot, pulmonary embolus, stroke, myocardial infarction, and anesthetic risks up to and including . Continued pain and possible dysfunction were explained. Specific risks of the procedure including later recurrence of deformity. No guarantees were offered. If complications occur, the patient understands the need for further treatment, possible further surgery. Patient verbalizes understanding and wishes to proceed. PLAN: Excisional debridement of right diabetic foot ulcer
--- NOTE | 2024-02-23 09:50 | P.HP_ITS ---
H&P: HPI History of Present Illness Date/Time: 02/23/24 09:50 Chief Complaint: Right foot wound Narrative: 68-year-old male returns to the [facility] for right diabetic foot ulcer. History of prior infection on the plantar aspect of the right forefoot which required debridement of the bone. He now has deformity of the 3rd and 4th toe and a chronic callus on the plantar aspect. He was previously evaluated by Dr. Coreas and restarted wound care. He began daily dressing changes and reports the callus was closing over until he stepped on something barefoot in his attic and noticed bleeding. He now notes the wound to be much bigger in size. Review of Systems Review of Systems: All systems reviewed & are unremarkable except as noted in HPI and below PMFSH Past Medical History Medical History Carpal tunnel syndrome Chronic systolic (congestive) heart failure Coronary artery disease Status post CABG. 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 History of arthroscopy of right knee History of cardiac catheterization History of carpal tunnel release History of colonoscopy with polypectomy History of coronary artery bypass graft History of coronary artery stent placement History of hernia repair (2019) History of incision and drainage Complex I&D Right foot infected diabetic foot ulcer measuring approximately 5x4cm. on 12/19/21 History of repair of hiatal hernia (2001) History of right hemicolectomy with ileocolic anastomsis in 2019 Status post debridement (12/2020) Right foot abscess, osteomyelitis. Family History Family History Sibling Family history of malignant neoplasm Father Family history of chronic obstructive pulmonary disease Hypertension Heart disease Mother Hypertension Cancer Sibling Cancer Sibling Cancer Sibling Cancer Social History Social History Social History: The patient is and lives with his and 1 son in [place]. They have 4 children. 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 No alcohol or illicit substance abuse. Surrogate medical decision maker: Tash Hernandezen, spouse. Code status: Full code. Years smoked: 10 Smoking status: Former smoker Tobacco type: cigarettes Alcohol intake: never Substance use: never Substance use type: does not use Do You Feel Safe in your Home?: Yes Lack of Transportation: No Lack of Food: Never True Current Housing: I Have Housing Concerned About Future Housing: No Difficulty Paying Gas/Electric Bills: No Difficulty Paying for Meds: No Currently Unemployed: No Education: High School Diploma/GED Living arrangements: with family Occupation/Education: retired Gender identity (if verbalized by the patient): Male Sexual Orientation (if Verbalized by the Patient): Straight or Heterosexual Spiritual care concerns: No Meds Home Medications and Allergies Home Medications Medication Instructions Recorded Confirmed Type aspirin 81 mg capsule 81 mg PO DAILY 03/21/22 12/07/23 History carvedilol 25 mg tablet 25 mg PO BID 03/07/23 12/07/23 History meclizine 25 mg tablet 25 mg PO BID PRN Dizziness 03/07/23 12/07/23 History rosuvastatin 5 mg tablet 5 mg PO DAILY #90 tabs 03/07/23 12/07/23 Rx sacubitril 24 mg-valsartan 26 mg 1 tablet PO DAILY 03/07/23 12/07/23 History tablet (Entresto) spironolactone 25 mg tablet 25 mg PO DAILY 03/07/23 12/07/23 History 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 sensor (Dexcom G7 #3 ea 08/04/23 12/07/23 Rx Sensor device) metformin 500 mg tablet,extended 1,000 mg PO DAILY #60 tabs 08/24/23 12/07/23 Rx release 24hr (osmotic) Dexcom G7 Sensor (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 #1 ea 12/05/23 12/07/23 Rx sensor) Jardiance 10 mg tablet 10 mg PO DAILY 30 days #30 tabs 12/05/23 12/07/23 Rx (empagliflozin) Lantus Solostar U-100 Insulin 100 10 unit (0.1 mL) subcut QPM #15 mL 12/05/23 12/07/23 Rx unit/mL (3 mL) subcutaneous pen (insulin glargine) clopidogrel 75 mg tablet 75 mg PO DAILY 12/05/23 12/07/23 History escitalopram oxalate 10 mg tablet 10 mg PO DAILY #90 tabs 12/05/23 12/07/23 Rx Allergies Allergy/AdvReac Type Severity Reaction Status Date / Time No Known Allergies Allergy Verified 12/05/23 10:16 Exam Const: General: healthy appearing; No in distress or confusion Orientation/consciousness: oriented to person, oriented to place, oriented to time and No confusion HENMT: Head: normal to inspection, normocephalic and atraumatic Eyes: Conjunctivae: conjunctivae normal Sclera: sclerae normal Neck: Neck: supple and nontender Resp: Effort & Inspection: normal respiratory effort and no audible wheezes Cardio: Rhythm: regular rhythm Skin: General skin exam: no rashes or lesions noted Neuro: General: oriented to person, oriented to place, oriented to time and No confusion Extrem: Right upper extremity: normal to inspection Left upper extremity: normal to inspection Right lower extremity: ankle Details: normal to inspection, abnormal ROM Details: with range as follows (ankle dorsiflexion -10 degrees, plantar flexion 40?, inversion 15?, eversion 15?) and other ( good stability all directions); no tenderness, no swelling and no ecchymosis and foot Details: abnormal to inspection ( extension deformity of the 3rd and 4th toe) Details: other ( 1 x 1 cm ulcer plantar forefoot under the 4th metatarsal head surrounding callus. No surrounding erythema. No drainage.), abnormal ROM of toe ( hallux MTP dorsiflexion 40, plantar flexion 20?), vascular exam Details: dorsalis pedis pulse present ( Decreased) and normal capillary refill, tendon exam Details: active flexion abnormal and active extension abnormal, motor- sensory exam Details: two point discrimination abnormal Location: in all toes and light-touch abnormal Location: in all toes and other (Hallux metatarsophalangeal motion 20? dorsiflexion/10? plantar flexion) Left lower extremity: ankle Details: normal to inspection and abnormal ROM Details: with range as follows (ankle dorsiflexion -10 degrees, plantar flexion 40?, inversion 15?, eversion 15?); no tenderness and no swelling and foot Details: normal capillary refill, abnormal ROM of toe, vascular exam (2+DP pulse, good cap refill all toes), tendon exam active flexion abnormal of the great toe and active extension abnormal of the great toe and motor-sensory exam two point discrimination abnormal and light-touch abnormal in all toes; no tenderness and no crepitus Other: Wound on the plantar aspect of the right 4th MTP joint measures 4.0x3.0x0.7 cm. 100% red/pink wound bed. No signs of actve infection. Psych: Affect: normal affect Assessment and Plan Assessment and plan (1) Diabetic ulcer of right foot: Qualifiers: Diabetic foot ulcer location: other Diabetes mellitus type: type 2 Non-pressure ulcer stage: with necrosis of muscle Qualified Code(s): E11.621 - Type 2 diabetes mellitus with foot ulcer; L97.513 - Non-pressure chronic ulcer of other part of right foot with necrosis of muscle Code(s): E11.621 - Type 2 diabetes mellitus with foot ulcer; L97.519 - Non-pressure chronic ulcer of other part of right foot with unspecified severity Status: Inactive Assessment and Plan: Follow up of right DFU. Patient with a history of peripheral neuropathy and type 2 diabetes. History of previous infection with osteo right foot. Previous radiographs show deformity of the 3rd and 4th MTP joints now with extension deformity of the toes and increased plantar pressure of the forefoot. No evidence of infection at this time. Ulcer indicated for debridement due to callus, blistering and worsening wound. Discussed the condition, nature, etiology and course of natural history with the patient. Treatment options including surgical and nonoperative treatment were reviewed. Risks and benefits of each as well as alternatives reviewed. The patient's questions were answered. Conservative treatment compression and elevation. Patient to return to use of fracture boot. Recommended NWB for pressure offloading. Discussed risks of worsening infection and need for amputation if noncompliant with overall medical care and diabetic control. Follow-up in 1 week for re-evaluation. (2) Peripheral sensory neuropathy due to type 2 diabetes mellitus: Code(s): E11.42 - Type 2 diabetes mellitus with diabetic polyneuropathy Status: Acute Plan Discussed nonoperative and operative treatment options with the patient. Risks and benefits of each as well as alternatives were reviewed. All of the patient's questions were answered. The risks of surgery reviewed including but not limited to: Neurovascular damage, wound complication, infection, blood clot, pulmonary embolus, stroke, myocardial infarction, and anesthetic risks up to and including . Continued pain and possible dysfunction were explained. Specific risks of the procedure including later recurrence of deformity. No guarantees were offered. If complications occur, the patient understands the need for further treatment, possible further surgery. Patient verbalizes understanding and wishes to proceed. PLAN: Excisional debridement of right diabetic foot ulcer Debridement/Burn/Wound Pre Procedure Consent was obtained, Procedures/risks were explained, Questions were answered, Correct patient identified and Correct side and site confirmed Episode Return Visit Area was prepped and draped using sterile technique?: Yes Ulcer/Wound Debridement, skin, first 20 sq cm or less: Yes Right (plantar foot ) Dressing Applied antibiotic ointment and Applied sterile dressing Post Procedure Patient tolerated the procedure well?: Tolerated procedure well
--- NOTE | 2024-02-27 09:53 | PM.IMHP ---
H&P: HPI History of Present Illness Date/Time: 02/27/24 09:53 Chief Complaint: Right foot wound Narrative: 68-year-old male returns to the [facility] for right diabetic foot ulcer. History of prior infection on the plantar aspect of the right forefoot which required debridement of the bone. He now has deformity of the 3rd and 4th toe and a chronic callus on the plantar aspect. He was previously evaluated by Dr. Coreas and restarted wound care. He was evaluated on Monday and noted an increased blistering/wound due to stepping on something in his attic. He has since been performing daily dressing changes. No new concerns today. Review of Systems Review of Systems: All systems reviewed & are unremarkable except as noted in HPI and below PMFSH Past Medical History Medical History Carpal tunnel syndrome Chronic systolic (congestive) heart failure Coronary artery disease Status post CABG. 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 History of arthroscopy of right knee History of cardiac catheterization History of carpal tunnel release History of colonoscopy with polypectomy History of coronary artery bypass graft History of coronary artery stent placement History of hernia repair (2019) History of incision and drainage Complex I&D Right foot infected diabetic foot ulcer measuring approximately 5x4cm. on 12/19/21 History of repair of hiatal hernia (2001) History of right hemicolectomy with ileocolic anastomsis in 2019 Status post debridement (12/2020) Right foot abscess, osteomyelitis. Family History Family History Sibling Family history of malignant neoplasm Father Family history of chronic obstructive pulmonary disease Hypertension Heart disease Mother Hypertension Cancer Sibling Cancer Sibling Cancer Sibling Cancer Social History Social History Social History: The patient is and lives with his and 1 son in [place]. They have 4 children. 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 No alcohol or illicit substance abuse. Surrogate medical decision maker: Tash Orantes, spouse. Code status: Full code. Years smoked: 10 Smoking status: Former smoker Tobacco type: cigarettes Alcohol intake: never Substance use: never Substance use type: does not use Do You Feel Safe in your Home?: Yes Lack of Transportation: No Lack of Food: Never True Current Housing: I Have Housing Concerned About Future Housing: No Difficulty Paying Gas/Electric Bills: No Difficulty Paying for Meds: No Currently Unemployed: No Education: High School Diploma/GED Living arrangements: with family Occupation/Education: retired Gender identity (if verbalized by the patient): Male Sexual Orientation (if Verbalized by the Patient): Straight or Heterosexual Spiritual care concerns: No Meds Home Medications and Allergies Home Medications Medication Instructions Recorded Confirmed Type aspirin 81 mg capsule 81 mg PO DAILY 03/21/22 12/07/23 History carvedilol 25 mg tablet 25 mg PO BID 03/07/23 12/07/23 History meclizine 25 mg tablet 25 mg PO BID PRN Dizziness 03/07/23 12/07/23 History rosuvastatin 5 mg tablet 5 mg PO DAILY #90 tabs 03/07/23 12/07/23 Rx sacubitril 24 mg-valsartan 26 mg 1 tablet PO DAILY 03/07/23 12/07/23 History tablet (Entresto) spironolactone 25 mg tablet 25 mg PO DAILY 03/07/23 12/07/23 History 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 sensor (Dexcom G7 #3 ea 08/04/23 12/07/23 Rx Sensor device) metformin 500 mg tablet,extended 1,000 mg PO DAILY #60 tabs 08/24/23 12/07/23 Rx release 24hr (osmotic) Dexcom G7 Sensor (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 #1 ea 12/05/23 12/07/23 Rx sensor) Jardiance 10 mg tablet 10 mg PO DAILY 30 days #30 tabs 12/05/23 12/07/23 Rx (empagliflozin) Lantus Solostar U-100 Insulin 100 10 unit (0.1 mL) subcut QPM #15 mL 12/05/23 12/07/23 Rx unit/mL (3 mL) subcutaneous pen (insulin glargine) clopidogrel 75 mg tablet 75 mg PO DAILY 12/05/23 12/07/23 History escitalopram oxalate 10 mg tablet 10 mg PO DAILY #90 tabs 12/05/23 12/07/23 Rx Allergies Allergy/AdvReac Type Severity Reaction Status Date / Time No Known Allergies Allergy Verified 12/05/23 10:16 Exam Const: General: healthy appearing; No in distress or confusion Orientation/consciousness: oriented to person, oriented to place, oriented to time and No confusion HENMT: Head: normal to inspection, normocephalic and atraumatic Eyes: Conjunctivae: conjunctivae normal Sclera: sclerae normal Neck: Neck: supple and nontender Resp: Effort & Inspection: normal respiratory effort and no audible wheezes Cardio: Rhythm: regular rhythm Skin: General skin exam: no rashes or lesions noted Neuro: General: oriented to person, oriented to place, oriented to time and No confusion Extrem: Right upper extremity: normal to inspection Left upper extremity: normal to inspection Right lower extremity: ankle Details: normal to inspection, abnormal ROM Details: with range as follows (ankle dorsiflexion -10 degrees, plantar flexion 40?, inversion 15?, eversion 15?) and other ( good stability all directions); no tenderness, no swelling and no ecchymosis and foot Details: abnormal to inspection ( extension deformity of the 3rd and 4th toe) Details: other ( 1 x 1 cm ulcer plantar forefoot under the 4th metatarsal head surrounding callus. No surrounding erythema. No drainage.), abnormal ROM of toe ( hallux MTP dorsiflexion 40, plantar flexion 20?), vascular exam Details: dorsalis pedis pulse present (decreased, faintly palpable ) and normal capillary refill, tendon exam Details: active flexion abnormal and active extension abnormal, motor-sensory exam Details: two point discrimination abnormal Location: in all toes and light-touch abnormal Location: in all toes and other (Hallux metatarsophalangeal motion 20? dorsiflexion/10? plantar flexion) Left lower extremity: ankle Details: normal to inspection and abnormal ROM Details: with range as follows (ankle dorsiflexion -10 degrees, plantar flexion 40?, inversion 15?, eversion 15?); no tenderness and no swelling and foot Details: normal capillary refill, abnormal ROM of toe, vascular exam (2+DP pulse, good cap refill all toes), tendon exam active flexion abnormal of the great toe and active extension abnormal of the great toe and motor-sensory exam two point discrimination abnormal and light-touch abnormal in all toes; no tenderness and no crepitus Other: Wound on the plantar aspect of the right 4th MTP joint measures 2x1.0x0.3 cm. 100% red/pink wound bed. No signs of active infection. Psych: Affect: normal affect Assessment and Plan Assessment and plan (1) Diabetic ulcer of right foot: Qualifiers: Diabetic foot ulcer location: other Diabetes mellitus type: type 2 Non-pressure ulcer stage: with necrosis of muscle Qualified Code(s): E11.621 - Type 2 diabetes mellitus with foot ulcer; L97.513 - Non-pressure chronic ulcer of other part of right foot with necrosis of muscle Code(s): E11.621 - Type 2 diabetes mellitus with foot ulcer; L97.519 - Non-pressure chronic ulcer of other part of right foot with unspecified severity Status: Inactive Assessment and Plan: Follow up of right DFU. Patient with a history of peripheral neuropathy and type 2 diabetes, uncontrolled with most recent HgB A1C in November of >13%. History of previous infection with osteo right foot. Previous radiographs show deformity of the 3rd and 4th MTP joints now with extension deformity of the toes and increased plantar pressure of the forefoot. Wound with improvement in comparison to Monday s/p debridement. Measurements today at 2x1x0.3 cm, 100% red/pink wound bed. No signs of worsening infection. Patient reports better control of his blood glucose levels since Monday and a reduction in sugary foods/drinks. He reports blood glucose levels in the 150-200s in comparison to previously >300. We previously discussed return to OR for debridement and grafting vs. outpatient grafting/casting. Due to most recent HgB A1C >13%, grafts would likely not be approved on an outpatient basis. He is not currently and ideal candidate to move forward with surgery to to uncontrolled DM either. Discussed repeating HgB A1C today to see if he would be eligible for outpatient grafting/casting but patient declines. He would like to continue conservative treatment with daily dressing changes and fracture boot or post op shoe for pressure offloading. Reviewed activity restrictions. Reviewed dietary precautions and medication compliance. Will reevaluate in 2 weeks. (2) Peripheral sensory neuropathy due to type 2 diabetes mellitus: Code(s): E11.42 - Type 2 diabetes mellitus with diabetic polyneuropathy Status: Acute
== END 2024-03-06 23:59 | disposition home or self-care (01) ==
LOC: ANHWOC 07:13
PROVIDERS: PCP Family Medicine; Visit Provider Family Medicine
DX: E11.621 Type 2 diabetes mellitus with foot ulcer (principal); L97.513 Non-pressure chronic ulcer of other part of right foot with necrosis of muscle; E11.42 Type 2 diabetes mellitus with diabetic polyneuropathy; I25.10 Atherosclerotic heart disease of native coronary artery without angina pectoris; I50.22 Chronic systolic (congestive) heart failure; K21.9 Gastro-esophageal reflux disease without esophagitis; Z79.4 Long term (current) use of insulin; Z87.891 Personal history of nicotine dependence
CPT/HCPCS: 11042; 99213; 99214; A9270; G0463

== ENCOUNTER 2024-03-28 10:31 | Emergency (ER) | payer MEDICARE, SELFPAY ==
--- NOTE | ~2024-03-28 | CT_ITS ---
Non-contrast Head CT History: Status post fall Technique: Axial non-contrast imaging of the brain was performed. Dose reduction technique was used on this scan by utilizing automated exposure control and iterative reconstruction technique. The dose -length product (DLP) was 605.33 mGy-cm. Findings: There is no evidence of intracranial hemorrhage, mass lesion, or acute infarct. Brain par enchyma appears normal. The ventricles and subarachnoid spaces are normal in size. The calvarium ap pears normal. The visualized paranasal sinuses and mastoid air cells are clear. Impression: No significant abnormality seen. Reviewed, dictated and finalized at location . [employer]ONMENTAL PROTECTION INSPECTOR Impression: No significant abnormality seen.
[2024-03-28 10:46] VITALS: BP 109/65; PULSE 90; RESP 18; TEMP 36.4; O2SAT 100
--- NOTE | 2024-03-28 11:12 | ECG_ITS ---
Test Date: 2024-03-28 11:40:34 Measurements Intervals [place] Rate: 77 P: 79 MN: 147 QRS: -34 QRSD: 128 T: 119 QT: 397 QTc: 450 Interpretive Statements SINUS RHYTHM LEFT AXIS DEVIATION [QRS AXIS < -30] ANTEROLATERAL MYOCARDIAL INFARCTION , OF INDETERMINATE AGE [40+ ms Q WAVE IN I/aVL/V3-V6] No previous ECG available for comparison Electronically Signed On 03-28-2024 16:20:53 MENTAL MEASUREMENTS TEACHER by Lore Mohamud
[2024-03-28 11:48] LABS: Basophils Percent Auto 0.3 % (0.2-1.2); Eosinophils Percent Auto 0.5 % (0-4.4); Hemoglobin 12.9 g/dL (14.0-18.0); Immature Granulocyte Absolute 0.02 K/mm3 (0.00-0.031); Immature Granulocyte Percent A 0.3 % (0-0.5); Lymphocytes Absolute Auto 1.34 K/mm3 (0.9-3.2); Lymphocytes Percent Auto 23.3 % (18.3-44.2); Mean Corpuscular HGB Conc 33.9 g/dl (32-36); Mean Corpuscular Hemoglobin 30.8 pg (26-34); Mean Corpuscular Volume 90.7 fl (80-100); Mean Platelet Volume 9.6 fl (7.4-10.4); Monocytes Absolute Auto 0.5 K/mm3 (0.1-0.6); Monocytes Percent Auto 8.2 % (2.6-8.5); Neutrophils Absolute Auto 3.9 K/mm3 (1.3-6.7); Neutrophils Percent Auto 67.4 % (45.5-73.1); Platelet Count Result 202 k/mm3 (150-375); Red Blood Count 4.19 M/mm3 (4.6-6.20); Red Cell Distribution Width 11.5 % (11.5-14.5); White Blood Count 5.7 K/mm3 (4.5-10.0)
[2024-03-28 11:57] LABS: Lactic Acid Reflex 1.1 mmol/L (0.7-2.0)
[2024-03-28 11:59] LABS: Alanine Aminotransferase 18 U/L (6-50); Albumin Level 4.3 g/dL (3.5-5.1); Alkaline Phosphatase 60 U/L (38-126); Anion Gap 6 mmol/L (4-12); Aspartate Amino Transferase 26 U/L (17-59); Bilirubin,Total 1.7 mg/dL (0.2-1.3); Blood Urea Nitrogen 33 mg/dL (9-20); Calcium 8.9 mg/dL (8.4-10.2); Carbon Dioxide 27 mmol/L (22-30); Chloride 100 mmol/L (98-107); Estimated CRCL calculation 72 ml/min; Estimated Glomerular Filt Rate > 60; Glucose 168 mg/dL (65-110); Magnesium 2.1 mg/dL (1.6-2.3); Potassium 5.1 mmol/L (3.4-5.0); Sodium 133 mmol/L (137-145)
[2024-03-28 12:10] LABS: NT Pro B Type Natriuretic Pept 815 pg/mL (19.9-100); Troponin I < 0.012 ng/mL (0.000-0.034)
[2024-03-28 12:11] LABS: Add Urine Microscopic? YES; Appearance Urine Cloudy (Clear); Bilirubin Urine Negative (Negative); Blood Urine Negative (Negative); Color Urine Yellow (Yellow); Glucose Urine UA 3+ mg/dL (Negative); Ketones Urine 2+ mg/dL (Negative); Leukocyte Esterase Ur Negative LEU/UL (Negative); Nitrate Urine Negative (Negative); Protein Urine Negative (Negative); Specific Grav Ur 1.039 (1.001-1.035); Urobilinogen Urine 0.2 mg/dL (<2.0)
[2024-03-28 13:15] VITALS: BP 150/79; PULSE 78; RESP 20; O2SAT 100
--- NOTE | 2024-03-28 17:25 | ED.SYNCOPE ---
HPI - Syncope General Chief Complaint: Syncope Stated Complaint: PASSED OUT AT WORK I THINK I HAD A STROKE SAT HS Time Seen by Provider: 03/28/24 11:27 History of Present Illness HPI narrative: patient states that about 5 days ago he had an episode where he passed out thankfully after he had already gotten to work, slight think he hit his head, but when he came to, had difficulty seeing out of his left eye, and also had numbness to his right arm. Since then symptoms have essentially resolved, though he did for some time start seeing things that were not there but that has also resolved. Already on aspirin, Plavix, atorvastatin at Full-dose Related Data Home Medications ?Medication ?Instructions ?Recorded ?Confirmed ?Last Taken ?Type aspirin 81 mg capsule 81 mg PO DAILY 03/21/22 12/07/23 Unknown History carvedilol 25 mg tablet 25 mg PO BID 03/07/23 12/07/23 Unknown History meclizine 25 mg tablet 25 mg PO BID PRN Dizziness 03/07/23 12/07/23 Unknown History sacubitril 24 mg-valsartan 26 mg 1 tablet PO DAILY 03/07/23 12/07/23 Unknown History tablet (Entresto) spironolactone 25 mg tablet 25 mg PO DAILY 03/07/23 12/07/23 Unknown History clopidogrel 75 mg tablet 75 mg PO DAILY 12/05/23 12/07/23 Unknown History Allergies Allergy/AdvReac Type Severity Reaction Status Date / Time No Known Allergies Allergy Verified 12/05/23 10:16 Review of Systems Review of Systems: All systems reviewed & are unremarkable except as noted in HPI and below PMFSH Past Medical History Medical History Carpal tunnel syndrome Chronic systolic (congestive) heart failure Coronary artery disease Status post CABG. 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 History of arthroscopy of right knee History of cardiac catheterization History of carpal tunnel release History of colonoscopy with polypectomy History of coronary artery bypass graft History of coronary artery stent placement History of hernia repair (2019) History of incision and drainage Complex I&D Right foot infected diabetic foot ulcer measuring approximately 5x4cm. on 12/19/21 History of repair of hiatal hernia (2001) History of right hemicolectomy with ileocolic anastomsis in 2019 Status post debridement (12/2020) Right foot abscess, osteomyelitis. Family History Family History Sibling Family history of malignant neoplasm Father Family history of chronic obstructive pulmonary disease Hypertension Heart disease Mother Hypertension Cancer Sibling Cancer Sibling Cancer Sibling Cancer Social History Social History Social History: The patient is and lives with his and 1 son in [place]. They have 4 children. 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 No alcohol or illicit substance abuse. Surrogate medical decision maker: Tash Orantes, spouse. Code status: Full code. Years smoked: 10 Smoking status: Former smoker Tobacco type: cigarettes Alcohol intake: never Substance use: never Substance use type: does not use Do You Feel Safe in your Home?: Yes Lack of Transportation: No Lack of Food: Never True Current Housing: I Have Housing Concerned About Future Housing: No Difficulty Paying Gas/Electric Bills: No Difficulty Paying for Meds: No Currently Unemployed: No Education: High School Diploma/GED Living arrangements: with family Occupation/Education: retired Gender identity (if verbalized by the patient): Male Sexual Orientation (if Verbalized by the Patient): Straight or Heterosexual Spiritual care concerns: No Exam Narrative: EXAMINATION OF ORGAN SYSTEMS/BODY AREAS: Constitutional: Vital signs per nursing GENERAL:[No acute distress, non-toxic appearing.] HEAD: Normal with no signs of head trauma. EYES: EOMI, conjunctiva normal; visual acuity grossly intact bilaterally, left eye better than right ENT: Hearing grossly intact LUNGS: Nonlabored breathing. HEART: [Regular rate and rhythm] ABD: [Soft], [nontender to palpation] EXT: Normal range of motion SKIN: [No rashes or lesions.] NEURO: [Alert and oriented x 3. No gross focal sensory or strength deficits.] no drift upper or lower extremities. No facial droop. Clear speech, normal gait PSYCH: Normal affect Course Vital Signs Vital signs: Vital Signs Temperature 97.5 F L 03/28/24 10:46 Pulse Rate 90 03/28/24 10:46 Respiratory Rate 18 03/28/24 10:46 Blood Pressure 109/65 03/28/24 10:46 Pulse Oximetry 100 03/28/24 10:46 Oxygen Delivery Autopap 03/28/24 10:46 Temperature 97.5 F L 03/28/24 10:46 Pulse Rate 90 03/28/24 10:46 Respiratory Rate 18 03/28/24 10:46 Blood Pressure 109/65 03/28/24 10:46 Pulse Oximetry 100 03/28/24 10:46 Oxygen Delivery Autopap 03/28/24 10:46 MDM - Syncope MDM Narrative Medical decision making narrative: patient states that about 5 days ago he had an episode where he passed out thankfully after he had already gotten to work, slight think he hit his head, but when he came to, had difficulty seeing out of his left eye, and also had numbness to his right arm. Since then symptoms have essentially resolved, though he did for some time start seeing things that were not there but that has also resolved. Already on aspirin, Plavix, atorvastatin. already seeing prescription clerk lenses for chronic retinopathy and possibly retinal detachment with plan for possible surgery in the future. Discussed with neurologist on-call, he has essentially unremarkable exam here including normal CT head and labs, offered potential admission for MRI here however may not guarantee timely follow-up, and he is already on all medications for stroke prevention, and he is out of any window for intervention as symptoms all started and essentially resolved 6 days ago, patient states he would really prefer to go home at this time a follow-up with his PCP. Urologist think this plan is reasonable also, as does the at bedside. Strict return precautions provided and follow-up instructions provided. He already has follow-up to ophthalmology scheduled. Lab Data 03/28/24 11:37 03/28/24 11:37 Labs: Lab Results 03/28/24 03/28/24 Range/Units 11:37 11:51 WBC 5.7 (4.5-10.0) K/mm3 RBC 4.19 L (4.6-6.20) M/mm3 Hgb 12.9 L (14.0-18.0) g/dL Hct 38.0 L (42.0-52.0) % MCV 90.7 (80-100) fl MCH 30.8 (26-34) pg MCHC 33.9 (32-36) g/dl RDW 11.5 (11.5-14.5) % Plt Count 202 (150-375) k/mm3 MPV 9.6 (7.4-10.4) fl Immature Gran % (Auto) 0.3 (0-0.5) % Neut % (Auto) 67.4 (45.5-73.1) % Lymph % (Auto) 23.3 (18.3-44.2) % [place] % (Auto) 8.2 (2.6-8.5) % Eos % (Auto) 0.5 (0-4.4) % Baso % (Auto) 0.3 (0.2-1.2) % Lymph # (Auto) 1.34 (0.9-3.2) K/mm3 [place] # (Auto) 0.5 (0.1-0.6) K/mm3 Eos # (Auto) 0.0 (0-0.3) K/mm3 Baso # (Auto) 0.0 (0.0-0.1) K/mm3 Abs Immat Gran (auto) 0.02 (0.00-0.031) K/mm3 Absolute Neuts (auto) 3.9 (1.3-6.7) K/mm3 Absolute Nucleated RBC 0.000 (0.0-0.012) K/mm3 Nucleated RBC % 0.0 (0.0-0.2) % Sodium 133 L (137-145) mmol/L Potassium 5.1 H (3.4-5.0) mmol/L Chloride 100 (98-107) mmol/L Carbon Dioxide 27 (22-30) mmol/L Anion Gap 6 (4-12) mmol/L BUN 33 H D (9-20) mg/dL Creatinine 0.90 (0.7-1.3) mg/dL Estim Creat Clear Calc 72 ml/min Estimated GFR > 60 (59 - ) Glucose 168 H (65-110) mg/dL Lactic Acid 1.1 (0.7-2.0) mmol/L Calcium 8.9 (8.4-10.2) mg/dL Magnesium 2.1 (1.6-2.3) mg/dL Total Bilirubin 1.7 H (0.2-1.3) mg/dL AST 26 (17-59) U/L ALT 18 (6-50) U/L Alkaline Phosphatase 60 (38-126) U/L Troponin I < 0.012 (0.000-0.034) ng/mL NT-Pro-B Natriuret Pep 815 H (19.9-100) pg/mL Total Protein 7.0 (6.3-8.2) g/dL Albumin 4.3 (3.5-5.1) g/dL Urine Color Yellow (Yellow) Urine Appearance Cloudy H (Clear) Urine pH 5.0 (5.0-9.0) Ur Specific [place] 1.039 H (1.001-1.035) Urine Protein Negative (Negative) mg/dL Urine Glucose (UA) 3+ H (Negative) mg/dL Urine Ketones 2+ H (Negative) mg/dL Ur Blood (Man) Negative (Negative) Urine Nitrate Negative (Negative) Urine Bilirubin Negative (Negative) Urine Urobilinogen 0.2 (<2.0) mg/dL Leukocyte Esterase Rfl Negative (Negative) TANVI/UL Discharge Plan Discharge Clinical Impression: Stroke-like symptoms Patient Disposition: Home, Self-Care Condition: Stable Instructions: Transient Ischemic Attack (ED), Syncope (ED) Additional Instructions: Please continue to take all the medications you have prescribed, and call your doctor today for very close follow-up within next 2 days. Please also follow-up with a neurologist and with your prescription clerk lenses. If your symptoms return or worsen, come back to the emergency room please. Patient Language: Slovenian Prescriptions: No Action (DME) Dexcom G7 Sensor Device See Rx Instructions .Route Qty: 3 5RF Rx Instructions: Change sensor every 10 days spironolactone 25 mg tablet 25 mg PO DAILY carvedilol 25 mg tablet 25 mg PO BID Entresto 24-26 mg tablet 1 tablet PO DAILY meclizine 25 mg tablet 25 mg PO BID PRN (Reason: Dizziness) rosuvastatin 5 mg tablet 5 mg PO DAILY Qty: 90 1RF clopidogrel 75 mg tablet 75 mg PO DAILY escitalopram oxalate 10 mg tablet 10 mg PO DAILY Qty: 90 1RF insulin glargine [Lantus Solostar U-100 Insulin] 100 unit/mL (3 mL) insulin pen 10 unit subcut QPM Qty: 15 1RF Jardiance 10 mg tablet 10 mg PO DAILY 30 Days Qty: 30 6RF (DME) Dexcom G7 Sensor Device See Rx Instructions .Route Qty: 1 6RF Rx Instructions: apply one sensor every 10 days aspirin 81 mg Capsule 81 mg PO DAILY metformin 500 mg tablet extended release 24 hr 1,000 mg PO DAILY Qty: 60 6RF sulfamethoxazole-trimethoprim 800-160 mg tablet 1 tablet PO Q12H Qty: 20 0RF Follow-up/Referrals: Ashwin Lawler MD [Primary Care Provider] - 2 Days Rivera Galarza MD [Physician] - 2 Days
== END 2024-03-28 13:15 | disposition home or self-care (01) ==
PROVIDERS: Emergency Provider Emergency Medicine; PCP Family Medicine
DX: R55 Syncope and collapse (principal); R20.0 Anesthesia of skin; Z79.82 Long term (current) use of aspirin; Z79.02 Long term (current) use of antithrombotics/antiplatelets; I50.22 Chronic systolic (congestive) heart failure; I25.10 Atherosclerotic heart disease of native coronary artery without angina pectoris; Z95.1 Presence of aortocoronary bypass graft; E11.42 Type 2 diabetes mellitus with diabetic polyneuropathy; I11.0 Hypertensive heart disease with heart failure; Z79.4 Long term (current) use of insulin; F32.4 Major depressive disorder, single episode, in partial remission; Z89.021 Acquired absence of right finger(s); Z87.891 Personal history of nicotine dependence
CPT/HCPCS: 36415; 70450; 80053; 81001; 83605; 83735; 83880; 84484; 85025; 93005; 99284

== ENCOUNTER 2024-05-21 07:10 | Outpatient (RCR) | payer MEDICARE, SELFPAY ==
[2024-03-07 00:04] VITALS: BMI 24.4
--- NOTE | 2024-03-12 09:05 | P.HP_ITS ---
H&P: HPI History of Present Illness Date/Time: 03/12/24 09:05 Chief Complaint: Right foot wound Narrative: 68-year-old male returns to the [facility] for right diabetic foot ulcer. History of prior infection on the plantar aspect of the right forefoot which required debridement of the bone. He now has deformity of the 3rd and 4th toe and a chronic callus on the plantar aspect. He has a wound on the plantar aspect of the 4th. Review of Systems Review of Systems: All systems reviewed & are unremarkable except as noted in HPI and below PMFSH Past Medical History Medical History Carpal tunnel syndrome Chronic systolic (congestive) heart failure Coronary artery disease Status post CABG. 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 History of arthroscopy of right knee History of cardiac catheterization History of carpal tunnel release History of colonoscopy with polypectomy History of coronary artery bypass graft History of coronary artery stent placement History of hernia repair (2019) History of incision and drainage Complex I&D Right foot infected diabetic foot ulcer measuring approximately 5x4cm. on 12/19/21 History of repair of hiatal hernia (2001) History of right hemicolectomy with ileocolic anastomsis in 2019 Status post debridement (12/2020) Right foot abscess, osteomyelitis. Family History Family History Sibling Family history of malignant neoplasm Father Family history of chronic obstructive pulmonary disease Hypertension Heart disease Mother Hypertension Cancer Sibling Cancer Sibling Cancer Sibling Cancer Social History Social History Social History: The patient is and lives with his and 1 son in [place]. They have 4 children. 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 No alcohol or illicit substance abuse. Surrogate medical decision maker: Tash Hernandezen, spouse. Code status: Full code. Years smoked: 10 Smoking status: Former smoker Tobacco type: cigarettes Alcohol intake: never Substance use: never Substance use type: does not use Do You Feel Safe in your Home?: Yes Lack of Transportation: No Lack of Food: Never True Current Housing: I Have Housing Concerned About Future Housing: No Difficulty Paying Gas/Electric Bills: No Difficulty Paying for Meds: No Currently Unemployed: No Education: High School Diploma/GED Living arrangements: with family Occupation/Education: retired Gender identity (if verbalized by the patient): Male Sexual Orientation (if Verbalized by the Patient): Straight or Heterosexual Spiritual care concerns: No Meds Home Medications and Allergies Home Medications Medication Instructions Recorded Confirmed Type aspirin 81 mg capsule 81 mg PO DAILY 03/21/22 12/07/23 History carvedilol 25 mg tablet 25 mg PO BID 03/07/23 12/07/23 History meclizine 25 mg tablet 25 mg PO BID PRN Dizziness 03/07/23 12/07/23 History rosuvastatin 5 mg tablet 5 mg PO DAILY #90 tabs 03/07/23 12/07/23 Rx sacubitril 24 mg-valsartan 26 mg 1 tablet PO DAILY 03/07/23 12/07/23 History tablet (Entresto) spironolactone 25 mg tablet 25 mg PO DAILY 03/07/23 12/07/23 History 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 sensor (Dexcom G7 #3 ea 08/04/23 12/07/23 Rx Sensor device) metformin 500 mg tablet,extended 1,000 mg PO DAILY #60 tabs 08/24/23 12/07/23 Rx release 24hr (osmotic) Dexcom G7 Sensor (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 #1 ea 12/05/23 12/07/23 Rx sensor) Jardiance 10 mg tablet 10 mg PO DAILY 30 days #30 tabs 12/05/23 12/07/23 Rx (empagliflozin) Lantus Solostar U-100 Insulin 100 10 unit (0.1 mL) subcut QPM #15 mL 12/05/23 12/07/23 Rx unit/mL (3 mL) subcutaneous pen (insulin glargine) clopidogrel 75 mg tablet 75 mg PO DAILY 12/05/23 12/07/23 History escitalopram oxalate 10 mg tablet 10 mg PO DAILY #90 tabs 12/05/23 12/07/23 Rx sulfamethoxazole 800 1 tablet PO Q12H #20 tabs 02/29/24 Rx mg-trimethoprim 160 mg tablet Allergies Allergy/AdvReac Type Severity Reaction Status Date / Time No Known Allergies Allergy Verified 12/05/23 10:16 Exam Const: General: healthy appearing; No in distress or confusion Orientation/consciousness: oriented to person, oriented to place, oriented to time and No confusion HENMT: Head: normal to inspection, normocephalic and atraumatic Eyes: Conjunctivae: conjunctivae normal Sclera: sclerae normal Neck: Neck: supple and nontender Resp: Effort & Inspection: normal respiratory effort and no audible wheezes Cardio: Rhythm: regular rhythm Skin: General skin exam: no rashes or lesions noted Neuro: General: oriented to person, oriented to place, oriented to time and No confusion Extrem: Right upper extremity: normal to inspection Left upper extremity: normal to inspection Right lower extremity: ankle Details: normal to inspection, abnormal ROM Details: with range as follows (ankle dorsiflexion -10 degrees, plantar flexion 40?, inversion 15?, eversion 15?) and other ( good stability all directions); no tenderness, no swelling and no ecchymosis and foot Details: abnormal to inspection ( extension deformity of the 3rd and 4th toe) Details: other ( 1 x 1 cm ulcer plantar forefoot under the 4th metatarsal head surrounding callus. No surrounding erythema. No drainage.), abnormal ROM of toe ( hallux MTP dorsiflexion 40, plantar flexion 20?), vascular exam Details: dorsalis pedis pulse present (decreased, faintly palpable ) and normal capillary refill, tendon exam Details: active flexion abnormal and active extension abnormal, motor-sensory exam Details: two point discrimination abnormal Location: in all toes and light-touch abnormal Location: in all toes and other (Hallux metatarsophalangeal motion 20? dorsiflexion/10? plantar flexion) Left lower extremity: ankle Details: normal to inspection and abnormal ROM Details: with range as follows (ankle dorsiflexion -10 degrees, plantar flexion 40?, inversion 15?, eversion 15?); no tenderness and no swelling and foot Details: normal capillary refill, abnormal ROM of toe, vascular exam (2+DP pulse, good cap refill all toes), tendon exam active flexion abnormal of the great toe and active extension abnormal of the great toe and motor-sensory exam two point discrimination abnormal and light-touch abnormal in all toes; no tenderness and no crepitus Other: Wound on the plantar aspect of the right 4th MTP joint measures 1.5x0.9x0.2 cm. 100% red/pink wound bed. No signs of active infection. Psych: Affect: normal affect Assessment and Plan Assessment and plan (1) Diabetic ulcer of right foot: Qualifiers: Diabetic foot ulcer location: other Diabetes mellitus type: type 2 Non-pressure ulcer stage: with necrosis of muscle Qualified Code(s): E11.621 - Type 2 diabetes mellitus with foot ulcer; L97.513 - Non-pressure chronic ulcer of other part of right foot with necrosis of muscle Code(s): E11.621 - Type 2 diabetes mellitus with foot ulcer; L97.519 - Non-pressure chronic ulcer of other part of right foot with unspecified severity Status: Inactive Assessment and Plan: Follow up of right DFU. Patient with a history of peripheral neuropathy and type 2 diabetes, uncontrolled with most recent HgB A1C in November of >13%. History of previous infection with osteo right foot. Previous radiographs show deformity of the 3rd and 4th MTP joints now with extension deformity of the toes and increased plantar pressure of the forefoot. Wound with improvement in comparison to previous. Measurements today at 1.5x0.9x0.2 cm, 100% red/pink wound bed. No signs of worsening infection. Patient reports better control of his blood glucose levels. Diabetic diet plan provided today for patient/ reference and explanation of carb intake. Reviewed activity restrictions. Reviewed dietary precautions and medication compliance. Will reevaluate in 2 weeks. (2) Peripheral sensory neuropathy due to type 2 diabetes mellitus: Code(s): E11.42 - Type 2 diabetes mellitus with diabetic polyneuropathy Status: Acute
--- NOTE | 2024-03-29 08:47 | P.HP_ITS ---
H&P: HPI History of Present Illness Date/Time: 03/29/24 08:47 Chief Complaint: Right foot wound Narrative: 68-year-old male returns to the [facility] for right diabetic foot ulcer. History of prior infection on the plantar aspect of the right forefoot which required debridement of the bone. He now has deformity of the 3rd and 4th toe and a chronic callus on the plantar aspect. He has a wound on the plantar aspect of the 4th. 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 GERD (gastroesophageal reflux disease) Carpal tunnel syndrome Surgical History Surgical History History of incision and drainage Complex I&D Right foot infected diabetic foot ulcer measuring approximately 5x4cm. on 12/19/21 Status post debridement (12/2020) Right foot abscess, osteomyelitis. History of coronary artery stent placement History of cardiac catheterization History of colonoscopy with polypectomy History of repair of hiatal hernia (2001) History of coronary artery bypass graft History of carpal tunnel release History of arthroscopy of right knee History of hernia repair (2018) Finger amputee Right 2nd finger secondary to crush injury. History of right hemicolectomy with ileocolic anastomsis in 2019 Family History Family History Sibling Family history of malignant neoplasm Father Family history of chronic obstructive pulmonary disease Hypertension Heart disease Mother Hypertension Cancer Sibling Cancer Sibling Cancer Sibling Cancer Social History Social History Social History: The patient is and lives with his and 1 son in [place]. They have 4 children. 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 No alcohol or illicit substance abuse. Surrogate medical decision maker: Tash Orantes, spouse. Code status: Full code. Years smoked: 10 Smoking status: Former smoker Tobacco type: cigarettes Alcohol intake: never Substance use: never Substance use type: does not use Do You Feel Safe in your Home?: Yes Lack of Transportation: No Lack of Food: Never True Current Housing: I Have Housing Concerned About Future Housing: No Difficulty Paying Gas/Electric Bills: No Difficulty Paying for Meds: No Currently Unemployed: No Education: High School Diploma/GED Living arrangements: with family Occupation/Education: retired Gender identity (if verbalized by the patient): Male Sexual Orientation (if Verbalized by the Patient): Straight or Heterosexual Spiritual care concerns: No Meds Home Medications and Allergies Home Medications ?Medication ?Instructions ?Recorded ?Confirmed ?Type aspirin 81 mg capsule 81 mg PO DAILY 03/21/22 12/07/23 History carvedilol 25 mg tablet 25 mg PO BID 03/07/23 12/07/23 History meclizine 25 mg tablet 25 mg PO BID PRN Dizziness 03/07/23 12/07/23 History rosuvastatin 5 mg tablet 5 mg PO DAILY #90 tabs 03/07/23 12/07/23 Rx sacubitril 24 mg-valsartan 26 mg 1 tablet PO DAILY 03/07/23 12/07/23 History tablet (Entresto) spironolactone 25 mg tablet 25 mg PO DAILY 03/07/23 12/07/23 History 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 sensor (Dexcom G7 #3 ea 08/04/23 12/07/23 Rx Sensor device) metformin 500 mg tablet,extended 1,000 mg (2 x 500 mg) PO DAILY #60 08/24/23 12/07/23 Rx release 24hr (osmotic) tabs Dexcom G7 Sensor (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 #1 ea 12/05/23 12/07/23 Rx sensor) Jardiance 10 mg tablet 10 mg PO DAILY 30 days #30 tabs 12/05/23 12/07/23 Rx (empagliflozin) Lantus Solostar U-100 Insulin 100 10 unit (0.1 mL) subcut QPM #15 mL 12/05/23 12/07/23 Rx unit/mL (3 mL) subcutaneous pen (insulin glargine) clopidogrel 75 mg tablet 75 mg PO DAILY 12/05/23 12/07/23 History escitalopram oxalate 10 mg tablet 10 mg PO DAILY #90 tabs 12/05/23 12/07/23 Rx sulfamethoxazole 800 1 tablet PO Q12H #20 tabs 02/29/24 Rx mg-trimethoprim 160 mg tablet Allergies Allergy/AdvReac Type Severity Reaction Status Date / Time No Known Allergies Allergy Verified 12/05/23 10:16 Exam Const: General: healthy appearing; No in distress or confusion Orientation/consciousness: oriented to person, oriented to place, oriented to time and No confusion HENMT: Head: normal to inspection, normocephalic and atraumatic Eyes: Conjunctivae: conjunctivae normal Sclera: sclerae normal Neck: Neck: supple and nontender Resp: Effort & Inspection: normal respiratory effort and no audible wheezes Cardio: Rhythm: regular rhythm Skin: General skin exam: no rashes or lesions noted Neuro: General: oriented to person, oriented to place, oriented to time and No confusion Extrem: Right upper extremity: normal to inspection Left upper extremity: normal to inspection Right lower extremity: ankle Details: normal to inspection, abnormal ROM Details: with range as follows (ankle dorsiflexion -10 degrees, plantar flexion 40?, inversion 15?, eversion 15?) and other ( good stability all directions); no tenderness, no swelling and no ecchymosis and foot Details: abnormal to inspection ( extension deformity of the 3rd and 4th toe) Details: other ( 1 x 1 cm ulcer plantar forefoot under the 4th metatarsal head surrounding callus. No surrounding erythema. No drainage.), abnormal ROM of toe ( hallux MTP dorsiflexion 40, plantar flexion 20?), vascular exam Details: dorsalis pedis pulse present (decreased, faintly palpable ) and normal capillary refill, tendon exam Details: active flexion abnormal and active extension abnormal, motor-sensory exam Details: two point discrimination abnormal Location: in all toes and light-touch abnormal Location: in all toes and other (Hallux metatarsophalangeal motion 20? dorsiflexion/10? plantar flexion) Left lower extremity: ankle Details: normal to inspection and abnormal ROM Details: with range as follows (ankle dorsiflexion -10 degrees, plantar flexion 40?, inversion 15?, eversion 15?); no tenderness and no swelling and foot Details: normal capillary refill, abnormal ROM of toe, vascular exam (2+DP pulse, good cap refill all toes), tendon exam active flexion abnormal of the great toe and active extension abnormal of the great toe and motor-sensory exam two point discrimination abnormal and light-touch abnormal in all toes; no tenderness and no crepitus Other: Wound on the plantar aspect of the right 4th MTP joint measures 1.0x0.5x0.1 cm. 100% red/pink wound bed. No signs of active infection. Psych: Affect: normal affect Assessment and Plan Assessment and plan (1) Diabetic ulcer of right foot: Qualifiers: Diabetic foot ulcer location: other Diabetes mellitus type: type 2 Non-pressure ulcer stage: with necrosis of muscle Qualified Code(s): E11.621 - Type 2 diabetes mellitus with foot ulcer; L97.513 - Non-pressure chronic ulcer of other part of right foot with necrosis of muscle Code(s): E11.621 - Type 2 diabetes mellitus with foot ulcer; L97.519 - Non-pressure chronic ulcer of other part of right foot with unspecified severity Status: Inactive Assessment and Plan: Follow up of right DFU. Patient with a history of peripheral neuropathy and type 2 diabetes, uncontrolled with most recent HgB A1C in November of >13%. History of previous infection with osteo right foot. Previous radiographs show deformity of the 3rd and 4th MTP joints now with extension deformity of the toes and increased plantar pressure of the forefoot. Wound with improvement in comparison to previous. Measurements today at 1.0x0.5x0.1 cm, 100% red/pink wound bed. No signs of worsening infection. Patient reports better control of his blood glucose levels. Diabetic diet plan provided today for patient/ reference and explanation of carb intake. Reviewed activity restrictions. Reviewed dietary precautions and medication compliance. Will reevaluate in 3.5 weeks. (2) Peripheral sensory neuropathy due to type 2 diabetes mellitus: Code(s): E11.42 - Type 2 diabetes mellitus with diabetic polyneuropathy Status: Acute Assessment and Plan: Discussed importance of proper nutrition, diabetic diet and medication compliance for optimal healing. Reviewed signs and symptoms of infection including fever, chills, night sweats, nausea, vomiting, diarrhea, changes to the wound bed or purulent drainage to report to the ED immediately. Patient verbalized understanding.
--- NOTE | 2024-04-23 09:13 | P.HP_ITS ---
H&P: [facility] History of Present Illness Date/Time: 04/23/24 09:13 Chief Complaint: Right foot wound Narrative: 68-year-old male returns to the [facility] for right diabetic foot ulcer. History of prior infection on the plantar aspect of the right forefoot which required debridement of the bone. He now has deformity of the 3rd and 4th toe and a chronic callus on the plantar aspect. He has a wound on the plantar aspect of the 4th. 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 GERD (gastroesophageal reflux disease) Carpal tunnel syndrome Surgical History Surgical History History of incision and drainage Complex I&D Right foot infected diabetic foot ulcer measuring approximately 5x4cm. on 12/19/21 Status post debridement (12/2020) Right foot abscess, osteomyelitis. History of coronary artery stent placement History of cardiac catheterization History of colonoscopy with polypectomy History of repair of hiatal hernia (2001) History of coronary artery bypass graft History of carpal tunnel release History of arthroscopy of right knee History of hernia repair (2018) Finger amputee Right 2nd finger secondary to crush injury. History of right hemicolectomy with ileocolic anastomsis in 2019 Family History Family History Sibling Family history of malignant neoplasm Father Family history of chronic obstructive pulmonary disease Hypertension Heart disease Mother Hypertension Cancer Sibling Cancer Sibling Cancer Sibling Cancer Social History Social History Social History: The patient is and lives with his and 1 son in [place]. They have 4 children. 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 No alcohol or illicit substance abuse. Surrogate medical decision maker: Tash Hernandezen, spouse. Code status: Full code. Years smoked: 10 Smoking status: Former smoker Tobacco type: cigarettes Alcohol intake: never Substance use: never Substance use type: does not use Do You Feel Safe in your Home?: Yes Lack of Transportation: No Lack of Food: Never True Current Housing: I Have Housing Concerned About Future Housing: No Difficulty Paying Gas/Electric Bills: No Difficulty Paying for Meds: No Currently Unemployed: No Education: High School Diploma/GED Living arrangements: with family Occupation/Education: retired Gender identity (if verbalized by the patient): Male Sexual Orientation (if Verbalized by the Patient): Straight or Heterosexual Spiritual care concerns: No Meds Home Medications and Allergies Home Medications ?Medication ?Instructions ?Recorded ?Confirmed ?Type aspirin 81 mg capsule 81 mg PO DAILY 03/21/22 12/07/23 History meclizine 25 mg tablet 25 mg PO BID PRN Dizziness 03/07/23 12/07/23 History rosuvastatin 5 mg tablet 5 mg PO DAILY #90 tabs 03/07/23 12/07/23 Rx sacubitril 24 mg-valsartan 26 mg 1 tablet PO DAILY 03/07/23 12/07/23 History tablet (Entresto) spironolactone 25 mg tablet 25 mg PO DAILY 03/07/23 12/07/23 History 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 sensor (Dexcom G7 #3 ea 08/04/23 12/07/23 Rx Sensor device) metformin 500 mg tablet,extended 1,000 mg (2 x 500 mg) PO DAILY #60 08/24/23 12/07/23 Rx release 24hr (osmotic) tabs Dexcom G7 Sensor (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 #1 ea 12/05/23 12/07/23 Rx sensor) Jardiance 10 mg tablet 10 mg PO DAILY 30 days #30 tabs 12/05/23 12/07/23 Rx (empagliflozin) Lantus Solostar U-100 Insulin 100 10 unit (0.1 mL) subcut QPM #15 mL 12/05/23 12/07/23 Rx unit/mL (3 mL) subcutaneous pen (insulin glargine) clopidogrel 75 mg tablet 75 mg PO DAILY 12/05/23 12/07/23 History escitalopram oxalate 10 mg tablet 10 mg PO DAILY #90 tabs 12/05/23 12/07/23 Rx carvedilol 25 mg tablet 25 mg PO BID #180 tabs 04/19/24 04/19/24 Rx sulfamethoxazole 800 1 tablet PO Q12H #20 tabs 04/19/24 04/19/24 Rx mg-trimethoprim 160 mg tablet Allergies Allergy/AdvReac Type Severity Reaction Status Date / Time No Known Allergies Allergy Verified 12/05/23 10:16 Exam Const: General: healthy appearing; No in distress or confusion Orientation/consciousness: oriented to person, oriented to place, oriented to time and No confusion HENMT: Head: normal to inspection, normocephalic and atraumatic Eyes: Conjunctivae: conjunctivae normal Sclera: sclerae normal Neck: Neck: supple and nontender Resp: Effort & Inspection: normal respiratory effort and no audible wheezes Cardio: Rhythm: regular rhythm Skin: General skin exam: no rashes or lesions noted Neuro: General: oriented to person, oriented to place, oriented to time and No confusion Extrem: Right upper extremity: normal to inspection Left upper extremity: normal to inspection Right lower extremity: ankle Details: normal to inspection, abnormal ROM Details: with range as follows (ankle dorsiflexion -10 degrees, plantar flexion 40?, inversion 15?, eversion 15?) and other ( good stability all directions); no tenderness, no swelling and no ecchymosis and foot Details: abnormal to inspection ( extension deformity of the 3rd and 4th toe) Details: other ( 1 x 1 cm ulcer plantar forefoot under the 4th metatarsal head surrounding callus. No surrounding erythema. No drainage.), abnormal ROM of toe ( hallux MTP dorsiflexion 40, plantar flexion 20?), vascular exam Details: dorsalis pedis pulse present (decreased, faintly palpable ) and normal capillary refill, tendon exam Details: active flexion abnormal and active extension abnormal, motor-sensory exam Details: two point discrimination abnormal Location: in all toes and light-touch abnormal Location: in all toes and other (Hallux metatarsophalangeal motion 20? dorsiflexion/10? plantar flexion) Left lower extremity: ankle Details: normal to inspection and abnormal ROM Details: with range as follows (ankle dorsiflexion -10 degrees, plantar flexion 40?, inversion 15?, eversion 15?); no tenderness and no swelling and foot Details: normal capillary refill, abnormal ROM of toe, vascular exam (2+DP pulse, good cap refill all toes), tendon exam active flexion abnormal of the great toe and active extension abnormal of the great toe and motor-sensory exam two point discrimination abnormal and light-touch abnormal in all toes; no tenderness and no crepitus Other: Wound on the plantar aspect of the right 4th MTP joint measures 1x0.4x0.1 cm. 100% red/pink wound bed. No signs of active infection. Psych: Affect: normal affect Assessment and Plan Assessment and plan (1) Diabetic ulcer of right foot: Qualifiers: Diabetic foot ulcer location: other Diabetes mellitus type: type 2 Non-pressure ulcer stage: with necrosis of muscle Qualified Code(s): E11.621 - Type 2 diabetes mellitus with foot ulcer; L97.513 - Non-pressure chronic ulcer of other part of right foot with necrosis of muscle Code(s): E11.621 - Type 2 diabetes mellitus with foot ulcer; L97.519 - Non-pressure chronic ulcer of other part of right foot with unspecified severity Status: Inactive Assessment and Plan: Follow up of right DFU. Patient with a history of peripheral neuropathy and type 2 diabetes, uncontrolled with most recent HgB A1C in November of >13%. History of previous infection with osteo right foot. Previous radiographs show deformity of the 3rd and 4th MTP joints now with extension deformity of the toes and increased plantar pressure of the forefoot. Wound with improvement in comparison to previous. Abundant callus formation requiring debridement today under sterile conditions. Measurements today at 1x0.4x0.1 cm, 100% red/pink wound bed. No signs of worsening infection. Patient reports better control of his blood glucose levels. Reviewed activity restrictions. Reviewed dietary precautions and medication compliance. Will reevaluate in 2 weeks. (2) Peripheral sensory neuropathy due to type 2 diabetes mellitus: Code(s): E11.42 - Type 2 diabetes mellitus with diabetic polyneuropathy Status: Acute Assessment and Plan: Discussed importance of proper nutrition, diabetic diet and medication compliance for optimal healing. Reviewed signs and symptoms of infection including fever, chills, night sweats, nausea, vomiting, diarrhea, changes to the wound bed or purulent drainage to report to the ED immediately. Patient verbalized understanding. Debridement/Burn/Wound Pre Procedure Consent was obtained, Procedures/risks were explained, Questions were answered, Correct patient identified and Correct side and site confirmed Episode Return Visit Area was prepped and draped using sterile technique?: Yes Ulcer/Wound Debridement, skin, first 20 sq cm or less: Yes Right (plantar 4th MTP joint ) Comments:: Debridement of the skin, subcutaneous tissue debrided under sterile conditions with #15 blade knife. All devitalized tissue removed. Procedure tolerated well. Patient instructed on post-debridement dressing changes. Reviewed signs/symptoms of complications to report to the office. Patient verbalized understanding and agrees with plan of care. Dressing Applied antibiotic ointment and Applied sterile dressing Post Procedure Patient tolerated the procedure well?: Tolerated procedure well
--- NOTE | 2024-05-21 09:09 | P.HP_ITS ---
H&P: [facility] History of Present Illness Date/Time: 05/21/24 09:09 Chief Complaint: Right foot wound Narrative: 68-year-old male returns to the [facility] for right diabetic foot ulcer. History of prior infection on the plantar aspect of the right forefoot which required debridement of the bone. He now has deformity of the 3rd and 4th toe and a chronic callus on the plantar aspect. He has a wound on the plantar aspect of the 4th. 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 GERD (gastroesophageal reflux disease) Carpal tunnel syndrome Surgical History Surgical History History of incision and drainage Complex I&D Right foot infected diabetic foot ulcer measuring approximately 5x4cm. on 12/19/21 Status post debridement (12/2020) Right foot abscess, osteomyelitis. History of coronary artery stent placement History of cardiac catheterization History of colonoscopy with polypectomy History of repair of hiatal hernia (2001) History of coronary artery bypass graft History of carpal tunnel release History of arthroscopy of right knee History of hernia repair (2018) Finger amputee Right 2nd finger secondary to crush injury. History of right hemicolectomy with ileocolic anastomsis in 2019 Family History Family History Sibling Family history of malignant neoplasm Father Family history of chronic obstructive pulmonary disease Hypertension Heart disease Mother Hypertension Cancer Sibling Cancer Sibling Cancer Sibling Cancer Social History Social History Social History: The patient is and lives with his and 1 son in [place]. They have 4 children. 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 No alcohol or illicit substance abuse. Surrogate medical decision maker: Tash Hernandezen, spouse. Code status: Full code. Years smoked: 10 Smoking status: Former smoker Tobacco type: cigarettes Alcohol intake: never Substance use: never Substance use type: does not use Do You Feel Safe in your Home?: Yes Lack of Transportation: No Lack of Food: Never True Current Housing: I Have Housing Concerned About Future Housing: No Difficulty Paying Gas/Electric Bills: No Difficulty Paying for Meds: No Currently Unemployed: No Education: High School Diploma/GED Living arrangements: with family Occupation/Education: retired Gender identity (if verbalized by the patient): Male Sexual Orientation (if Verbalized by the Patient): Straight or Heterosexual Spiritual care concerns: No Meds Home Medications and Allergies Home Medications ?Medication ?Instructions ?Recorded ?Confirmed ?Type aspirin 81 mg capsule 81 mg PO DAILY 03/21/22 12/07/23 History meclizine 25 mg tablet 25 mg PO BID PRN Dizziness 03/07/23 12/07/23 History rosuvastatin 5 mg tablet 5 mg PO DAILY #90 tabs 03/07/23 12/07/23 Rx sacubitril 24 mg-valsartan 26 mg 1 tablet PO DAILY 03/07/23 12/07/23 History tablet (Entresto) spironolactone 25 mg tablet 25 mg PO DAILY 03/07/23 12/07/23 History 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 sensor (Dexcom G7 #3 ea 08/04/23 12/07/23 Rx Sensor device) metformin 500 mg tablet,extended 1,000 mg (2 x 500 mg) PO DAILY #60 08/24/23 12/07/23 Rx release 24hr (osmotic) tabs Dexcom G7 Sensor (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 #1 ea 12/05/23 12/07/23 Rx sensor) Jardiance 10 mg tablet 10 mg PO DAILY 30 days #30 tabs 12/05/23 12/07/23 Rx (empagliflozin) Lantus Solostar U-100 Insulin 100 10 unit (0.1 mL) subcut QPM #15 mL 12/05/23 12/07/23 Rx unit/mL (3 mL) subcutaneous pen (insulin glargine) clopidogrel 75 mg tablet 75 mg PO DAILY 12/05/23 12/07/23 History escitalopram oxalate 10 mg tablet 10 mg PO DAILY #90 tabs 12/05/23 12/07/23 Rx carvedilol 25 mg tablet 25 mg PO BID #180 tabs 04/19/24 04/19/24 Rx sulfamethoxazole 800 1 tablet PO Q12H #20 tabs 04/19/24 04/19/24 Rx mg-trimethoprim 160 mg tablet Allergies Allergy/AdvReac Type Severity Reaction Status Date / Time No Known Allergies Allergy Verified 12/05/23 10:16 Exam Const: General: healthy appearing; No in distress or confusion Orientation/consciousness: oriented to person, oriented to place, oriented to time and No confusion HENMT: Head: normal to inspection, normocephalic and atraumatic Eyes: Conjunctivae: conjunctivae normal Sclera: sclerae normal Neck: Neck: supple and nontender Resp: Effort & Inspection: normal respiratory effort and no audible wheezes Cardio: Rhythm: regular rhythm Skin: General skin exam: no rashes or lesions noted Neuro: General: oriented to person, oriented to place, oriented to time and No confusion Extrem: Right upper extremity: normal to inspection Left upper extremity: normal to inspection Right lower extremity: ankle Details: normal to inspection, abnormal ROM Details: with range as follows (ankle dorsiflexion -10 degrees, plantar flexion 40?, inversion 15?, eversion 15?) and other ( good stability all directions); no tenderness, no swelling and no ecchymosis and foot Details: abnormal to inspection ( extension deformity of the 3rd and 4th toe) Details: other ( 1 x 1 cm ulcer plantar forefoot under the 4th metatarsal head surrounding callus. No surrounding erythema. No drainage.), abnormal ROM of toe ( hallux MTP dorsiflexion 40, plantar flexion 20?), vascular exam Details: dorsalis pedis pulse present (decreased, faintly palpable ) and normal capillary refill, tendon exam Details: active flexion abnormal and active extension abnormal, motor-sensory exam Details: two point discrimination abnormal Location: in all toes and light-touch abnormal Location: in all toes and other (Hallux metatarsophalangeal motion 20? dorsiflexion/10? plantar flexion) Left lower extremity: ankle Details: normal to inspection and abnormal ROM Details: with range as follows (ankle dorsiflexion -10 degrees, plantar flexion 40?, inversion 15?, eversion 15?); no tenderness and no swelling and foot Details: normal capillary refill, abnormal ROM of toe, vascular exam (2+DP pulse, good cap refill all toes), tendon exam active flexion abnormal of the great toe and active extension abnormal of the great toe and motor-sensory exam two point discrimination abnormal and light-touch abnormal in all toes; no tenderness and no crepitus Other: Wound on the plantar aspect of the right 4th MTP joint measures 0.9x0.4x0.1 cm. 100% red/pink wound bed. No signs of active infection. Psych: Affect: normal affect Assessment and Plan Assessment and plan (1) Diabetic ulcer of right foot: Qualifiers: Diabetic foot ulcer location: other Diabetes mellitus type: type 2 Non-pressure ulcer stage: with necrosis of muscle Qualified Code(s): E11.621 - Type 2 diabetes mellitus with foot ulcer; L97.513 - Non-pressure chronic ulcer of other part of right foot with necrosis of muscle Code(s): E11.621 - Type 2 diabetes mellitus with foot ulcer; L97.519 - Non-pressure chronic ulcer of other part of right foot with unspecified severity Status: Inactive Assessment and Plan: Follow up of right DFU. Patient with a history of peripheral neuropathy and type 2 diabetes, uncontrolled with most recent HgB A1C in November of >13%. History of previous infection with osteo right foot. Previous radiographs show deformity of the 3rd and 4th MTP joints now with extension deformity of the toes and increased plantar pressure of the forefoot. Wound with improvement in comparison to previous. Abundant callus formation requiring debridement today under sterile conditions. Measurements today at 0.9x0.5x0.1 cm, 100% red/pink wound bed. No signs of worsening infection. Patient reports better control of his blood glucose levels. Reviewed activity restrictions. Reviewed dietary precautions and medication compliance. Will reevaluate in 4 weeks. (2) Peripheral sensory neuropathy due to type 2 diabetes mellitus: Code(s): E11.42 - Type 2 diabetes mellitus with diabetic polyneuropathy Status: Acute Assessment and Plan: Discussed importance of proper nutrition, diabetic diet and medication compliance for optimal healing. Reviewed signs and symptoms of infection including fever, chills, night sweats, nausea, vomiting, diarrhea, changes to the wound bed or purulent drainage to report to the ED immediately. Patient verbalized understanding. Debridement/Burn/Wound Pre Procedure Consent was obtained, Procedures/risks were explained, Questions were answered, Correct patient identified and Correct side and site confirmed Episode Return Visit Area was prepped and draped using sterile technique?: Yes Ulcer/Wound Debridement, skin, first 20 sq cm or less: Yes Right (plantar 4th MTP joint ) Comments:: Debridement of the skin, subcutaneous tissue debrided under sterile conditions with #15 blade knife. All devitalized tissue removed. Procedure tolerated well. Patient instructed on post-debridement dressing changes. Reviewed signs/symptoms of complications to report to the office. Patient verbalized understanding and agrees with plan of care. Dressing Applied antibiotic ointment and Applied sterile dressing Post Procedure Patient tolerated the procedure well?: Tolerated procedure well
== END 2024-06-10 23:59 | disposition home or self-care (01) ==
LOC: ANHWOC 07:10
PROVIDERS: PCP Family Medicine; Visit Provider Nurse Practitioner Family
DX: E11.42 Type 2 diabetes mellitus with diabetic polyneuropathy (principal); E11.621 Type 2 diabetes mellitus with foot ulcer; L97.509 Non-pressure chronic ulcer of other part of unspecified foot with unspecified severity
CPT/HCPCS: 11042; 99213; G0463

== ENCOUNTER 2024-08-27 07:32 | Outpatient (RCR) | payer MEDICARE, SELFPAY ==
[2024-06-11 00:06] VITALS: BMI 24.4
--- NOTE | 2024-06-11 11:13 | P.HP_ITS ---
H&P: HPI History of Present Illness Date/Time: 06/11/24 11:13 Chief Complaint: Right foot wound Narrative: 68-year-old male returns to the [facility] for right diabetic foot ulcer. Deformity of the 3rd and 4th toe and a chronic callus on the plantar aspect of the 4th. 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 GERD (gastroesophageal reflux disease) Carpal tunnel syndrome Surgical History Surgical History History of incision and drainage Complex I&D Right foot infected diabetic foot ulcer measuring approximately 5x4cm. on 12/19/21 Status post debridement (12/2020) Right foot abscess, osteomyelitis. History of coronary artery stent placement History of cardiac catheterization History of colonoscopy with polypectomy History of repair of hiatal hernia (2001) History of coronary artery bypass graft History of carpal tunnel release History of arthroscopy of right knee History of hernia repair (2018) Finger amputee Right 2nd finger secondary to crush injury. History of right hemicolectomy with ileocolic anastomsis in 2019 Family History Family History Sibling Family history of malignant neoplasm Father Family history of chronic obstructive pulmonary disease Hypertension Heart disease Mother Hypertension Cancer Sibling Cancer Sibling Cancer Sibling Cancer Social History Social History Social History: The patient is and lives with his and 1 son in [place]. They have 4 children. 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 No alcohol or illicit substance abuse. Surrogate medical decision maker: Tash Orantes, spouse. Code status: Full code. Years smoked: 10 Smoking status: Former smoker Tobacco type: cigarettes Alcohol intake: never Substance use: never Substance use type: does not use Do You Feel Safe in your Home?: Yes Lack of Transportation: No Lack of Food: Never True Current Housing: I Have Housing Concerned About Future Housing: No Difficulty Paying Gas/Electric Bills: No Difficulty Paying for Meds: No Currently Unemployed: No Education: High School Diploma/GED Living arrangements: with family Occupation/Education: retired Gender identity (if verbalized by the patient): Male Sexual Orientation (if Verbalized by the Patient): Straight or Heterosexual Spiritual care concerns: No Meds Home Medications and Allergies Home Medications ?Medication ?Instructions ?Recorded ?Confirmed ?Type aspirin 81 mg capsule 81 mg PO DAILY 03/21/22 12/07/23 History meclizine 25 mg tablet 25 mg PO BID PRN Dizziness 03/07/23 12/07/23 History rosuvastatin 5 mg tablet 5 mg PO DAILY #90 tabs 03/07/23 12/07/23 Rx sacubitril 24 mg-valsartan 26 mg 1 tablet PO DAILY 03/07/23 12/07/23 History tablet (Entresto) spironolactone 25 mg tablet 25 mg PO DAILY 03/07/23 12/07/23 History 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 sensor (Dexcom G7 #3 ea 08/04/23 12/07/23 Rx Sensor device) metformin 500 mg tablet,extended 1,000 mg (2 x 500 mg) PO DAILY #60 08/24/23 12/07/23 Rx release 24hr (osmotic) tabs Dexcom G7 Sensor (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 #1 ea 12/05/23 12/07/23 Rx sensor) Jardiance 10 mg tablet 10 mg PO DAILY 30 days #30 tabs 12/05/23 12/07/23 Rx (empagliflozin) Lantus Solostar U-100 Insulin 100 10 unit (0.1 mL) subcut QPM #15 mL 12/05/23 12/07/23 Rx unit/mL (3 mL) subcutaneous pen (insulin glargine) clopidogrel 75 mg tablet 75 mg PO DAILY 12/05/23 12/07/23 History escitalopram oxalate 10 mg tablet 10 mg PO DAILY #90 tabs 12/05/23 12/07/23 Rx carvedilol 25 mg tablet 25 mg PO BID #180 tabs 04/19/24 04/19/24 Rx sulfamethoxazole 800 1 tablet PO Q12H #20 tabs 04/19/24 04/19/24 Rx mg-trimethoprim 160 mg tablet Allergies Allergy/AdvReac Type Severity Reaction Status Date / Time No Known Allergies Allergy Verified 12/05/23 10:16 Exam Const: General: healthy appearing; No in distress or confusion Orientati on/consciousness: oriented to person, oriented to place, oriented to time and No confusion HENMT: Head: normal to inspection, normocephalic and atraumatic Eyes: Conjunctivae: conjunctivae normal Sclera: sclerae normal Neck: Neck: supple and nontender Resp: Effort & Inspection: normal respiratory effort and no audible wheezes Cardio: Rhythm: regular rhythm Skin: General skin exam: no rashes or lesions noted Neuro: General: oriented to person, oriented to place, oriented to time and No confusion Extrem: Right upper extremity: normal to inspection Left upper extremity: normal to inspection Right lower extremity: ankle Details: normal to inspection, abnormal ROM Details: with range as follows (ankle dorsiflexion -10 degrees, plantar flexion 40?, inversion 15?, eversion 15?) and other ( good stability all directions); no tenderness, no swelling and no ecchymosis and foot Details: abnormal to inspection ( extension deformity of the 3rd and 4th toe) Details: other ( 1 x 1 cm ulcer plantar forefoot under the 4th metatarsal head surrounding callus. No surrounding erythema. No drainage.), abnormal ROM of toe ( hallux MTP dorsiflexion 40, plantar flexion 20?), vascular exam Details: dorsalis pedis pulse present (decreased, faintly palpable ) and normal capillary refill, tendon exam Details: active flexion abnormal and active extension abnormal, motor-sensory exam Details: two point discrimination abnormal Location: in all toes and light-touch abnormal Location: in all toes and other (Hallux metatarsophalangeal motion 20? dorsiflexion/10? plantar flexion) Left lower extremity: ankle Details: normal to inspection and abnormal ROM Details: with range as follows (ankle dorsiflexion -10 degrees, plantar flexion 40?, inversion 15?, eversion 15?); no tenderness and no swelling and foot Details: normal capillary refill, abnormal ROM of toe, vascular exam (2+DP pulse, good cap refill all toes), tendon exam active flexion abnormal of the great toe and active extension abnormal of the great toe and motor-sensory exam two point discrimination abnormal and light-touch abnormal in all toes; no tenderness and no crepitus Other: Wound on the plantar aspect of the right 4th MTP joint measures 0.5x0.1x0.1 cm. 100% red/pink wound bed. No signs of active infection. Psych: Affect: normal affect Assessment and Plan Assessment and plan (1) Diabetic ulcer of right foot: Qualifiers: Diabetic foot ulcer location: other Diabetes mellitus type: type 2 Non-pressure ulcer stage: with necrosis of muscle Qualified Code(s): E11.621 - Type 2 diabetes mellitus with foot ulcer; L97.513 - Non-pressure chronic ulcer of other part of right foot with necrosis of muscle Code(s): E11.621 - Type 2 diabetes mellitus with foot ulcer; L97.519 - Non-pressure chronic ulcer of other part of right foot with unspecified severity Status: Inactive Assessment and Plan: Follow up of right DFU. Patient with a history of peripheral neuropathy and type 2 diabetes, uncontrolled with most recent HgB A1C in November of >13%. History of previous infection with osteo right foot. Previous radiographs show deformity of the 3rd and 4th MTP joints now with extension deformity of the toes and incr eased plantar pressure of the forefoot. Wound with improvement in comparison to previous. Abundant callus formation requiring debridement today under sterile conditions. Measurements today at 0.5x0.1x0.2 cm, 100% red/pink wound bed. No signs of worsening infection. Patient reports better control of his blood glucose levels. Reviewed activity restrictions. Reviewed dietary precautions and medication compliance. Will reevaluate in 4 weeks. (2) Peripheral sensory neuropathy due to type 2 diabetes mellitus: Code(s): E11.42 - Type 2 diabetes mellitus with diabetic polyneuropathy Status: Acute Assessment and Plan: Discussed importance of proper nutrition, diabetic diet and medication compliance for optimal healing. Reviewed signs and symptoms of infection including fever, chills, night sweats, nausea, vomiting, diarrhea, changes to the wound bed or purulent drainage to report to the ED immediately. Patient verbalized understanding. Debridement/Burn/Wound Pre Procedure Consent was obtained, Procedures/risks were explained, Questions were answered, Correct patient identified and Correct side and site confirmed Episode Return Visit Area was prepped and draped using sterile technique?: Yes Ulcer/Wound Debridement, skin, first 20 sq cm or less: Yes Right (plantar foot wound ) Comments:: Debridement of the skin, subcutaneous tissue under sterile conditions with #15 blade knife. All devitalized tissue removed. Procedure tolerated well. Patient instructed on post-debridement dressing changes. Reviewed signs/symptoms of complications to report to the office. Patient verbalized understanding and agrees with plan of care. Dressing Applied antibiotic ointment and Applied sterile dressing Post Procedure Patient tolerated the procedure well?: Tolerated procedure well
--- NOTE | 2024-07-02 08:52 | P.HP_ITS ---
H&P: HPI History of Present Illness Date/Time: 07/02/24 08:52 Chief Complaint: Right foot wound Narrative: 68-year-old male returns to the [facility] for right diabetic foot ulcer. Deformity of the 3rd and 4th toe and a chronic callus on the plantar aspect of the 4th. 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 GERD (gastroesophageal reflux disease) Carpal tunnel syndrome Surgical History Surgical History History of incision and drainage Complex I&D Right foot infected diabetic foot ulcer measuring approximately 5x4cm. on 12/19/21 Status post debridement (12/2020) Right foot abscess, osteomyelitis. History of coronary artery stent placement History of cardiac catheterization History of colonoscopy with polypectomy History of repair of hiatal hernia (2001) History of coronary artery bypass graft History of carpal tunnel release History of arthroscopy of right knee History of hernia repair (2018) Finger amputee Right 2nd finger secondary to crush injury. History of right hemicolectomy with ileocolic anastomsis in 2019 Family History Family History Sibling Family history of malignant neoplasm Father Family history of chronic obstructive pulmonary disease Hypertension Heart disease Mother Hypertension Cancer Sibling Cancer Sibling Cancer Sibling Cancer Social History Social History Social History: The patient is and lives with his and 1 son in [place]. They have 4 children. 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 No alcohol or illicit substance abuse. Surrogate medical decision maker: Tash Orantes, spouse. Code status: Full code. Years smoked: 10 Smoking status: Former smoker Tobacco type: cigarettes Alcohol intake: never Substance use: never Substance use type: does not use Do You Feel Safe in your Home?: Yes Lack of Transportation: No Lack of Food: Never True Current Housing: I Have Housing Concerned About Future Housing: No Difficulty Paying Gas/Electric Bills: No Difficulty Paying for Meds: No Currently Unemployed: No Education: High School Diploma/GED Living arrangements: with family Occupation/Education: retired Gender identity (if verbalized by the patient): Male Sexual Orientation (if Verbalized by the Patient): Straight or Heterosexual Spiritual care concerns: No Meds Home Medications and Allergies Home Medications ?Medication ?Instructions ?Recorded ?Confirmed ?Type aspirin 81 mg capsule 81 mg PO DAILY 03/21/22 06/17/24 History 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 sensor (Dexcom G7 #3 ea 08/04/23 12/07/23 Rx Sensor device) Dexcom G7 Sensor (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 #1 ea 06/17/24 06/17/24 Rx sensor) Jardiance 10 mg tablet 10 mg PO DAILY 30 days #30 tabs 06/18/24 Rx (empagliflozin) Lantus Solostar U-100 Insulin 100 10 unit (0.1 mL) subcut QPM #15 mL 06/18/24 Rx unit/mL (3 mL) subcutaneous pen (insulin glargine) rosuvastatin 5 mg tablet 5 mg PO DAILY #90 tabs 06/18/24 Rx Allergies Allergy/AdvReac Type Severity Reaction Status Date / Time No Known Allergies Allergy Verified 06/17/24 15:09 Exam Const: General: healthy appearing; No in distress or confusion Orientation/consciousness: oriented to person, oriented to place, oriented to time and No confusion HENMT: Head: normal to inspection, normocephalic and atraumatic Eyes: Conjunctivae: conjunctivae normal Sclera: sclerae normal Neck: Neck: supple and nontender Resp: Effort & Inspection: normal respiratory effort and no audible wheezes Cardio: Rhythm: regular rhythm Skin: General skin exam: no rashes or lesions noted Neuro: General: oriented to person, oriented to place, oriented to time and No confusion Extrem: Right upper extremity: normal to inspection Left upper extremity: normal to inspection Right lower extremity: ankle Details: normal to inspection, abnormal ROM Details: with range as follows (ankle dorsiflexion -10 degrees, plantar flexion 40?, inversion 15?, eversion 15?) and other ( good stability all directions); no tenderness, no swelling and no ecchymosis and foot Details: abnormal to inspection ( extension deformity of the 3rd and 4th toe) Details: other ( 1 x 1 cm ulcer plantar forefoot under the 4th metatarsal head surrounding callus. No surrounding erythema. No drainage.), abnormal ROM of toe ( hallux MTP dorsiflexion 40, plantar flexion 20?), vascular exam Details: dorsalis pedis pulse present (decreased, faintly palpable ) and normal capillary refill, tendon exam Details: active flexion abnormal and active extension abnormal, motor-sensory exam Details: two point discrimination abnormal Location: in all toes and light-touch abnormal Location: in all toes and other (Hallux metatarsophalangeal motion 20? dorsiflexion/10? plantar flexion) Left lower extremity: ankle Details: normal to inspection and abnormal ROM Details: with range as follows (ankle dorsiflexion -10 degrees, plantar flexion 40?, inversion 15?, eversion 15?); no tenderness and no swelling and foot Details: normal capillary refill, abnormal ROM of toe, vascular exam (2+DP pulse, good cap refill all toes), tendon exam active flexion abnormal of the great toe and active extension abnormal of the great toe and motor-sensory exam two point discrimination abnormal and light-touch abnormal in all toes; no tenderness and no crepitus Other: Wound on the plantar aspect of the right 4th MTP joint measures 0.5x0.1x0.1 cm. 100% red/pink wound bed. No signs of active infection. Psych: Affect: normal affect Assessment and Plan Assessment and plan (1) Diabetic ulcer of right foot: Qualifiers: Diabetic foot ulcer location: other Diabetes mellitus type: type 2 Non-pressure ulcer stage: with necrosis of muscle Qualified Code(s): E11.621 - Type 2 diabetes mellitus with foot ulcer; L97.513 - Non-pressure chronic ulcer of other part of right foot with necrosis of muscle Code(s): E11.621 - Type 2 diabetes mellitus with foot ulcer; L97.519 - Non-pressure chronic ulcer of other part of right foot with unspecified severity Status: Inactive Assessment and Plan: Follow up of right DFU. Patient with a history of peripheral neuropathy and type 2 diabetes, uncontrolled with most recent HgB A1C in November of 12%. History of previous infection with osteo right foot. Previous radiographs show deformity of the 3rd and 4th MTP joints now with extension deformity of the toes and increased plantar pressure of the forefoot. Wound with improvement in comparison to previous. Abundant callus formation requiring debridement today under sterile conditions. Measurements today at 0.2x0.1x0.3 cm, 100% red/pink wound bed. No signs of worsening infection. No ability to move forward with surgical intervention due to uncontrolled DM. Discussed risks of urgent needs based on risk of infection. Reviewed activity restrictions. Reviewed dietary precautions and medication compliance. Will reevaluate in 4 weeks. (2) Peripheral sensory neuropathy due to type 2 diabetes mellitus: Code(s): E11.42 - Type 2 diabetes mellitus with diabetic polyneuropathy Status: Acute Assessment and Plan: Discussed importance of proper nutrition, diabetic diet and medication compliance for optimal healing. Reviewed signs and symptoms of infection including fever, chills, night sweats, nausea, vomiting, diarrhea, changes to the wound bed or purulent drainage to report to the ED immediately. Patient verbalized understanding. Debridement/Burn/Wound Pre Procedure Consent was obtained, Procedures/risks were explained, Questions were answered, Correct patient identified and Correct side and site confirmed Episode Return Visit Area was prepped and draped using sterile technique?: Yes Ulcer/Wound Debridement, skin, first 20 sq cm or less: Yes Right (plantar foot wound ) Comments:: Debridement of the skin, subcutaneous tissue under sterile conditions with #15 blade knife. All devitalized tissue removed. Procedure tolerated well. Patient instructed on post-debridement dressing changes. Reviewed signs/symptoms of complications to report to the office. Patient verbalized understanding and agrees with plan of care. Dressing Applied antibiotic ointment and Applied sterile dressing Post Procedure Patient tolerated the procedure well?: Tolerated procedure well
--- NOTE | 2024-08-09 14:49 | PM.IMHP ---
H&P: HPI History of Present Illness Date/Time: 08/09/24 14:49 Chief Complaint: Right foot wound Narrative: 68-year-old male returns to the [facility] for right diabetic foot ulcer. Deformity of the 3rd and 4th toe and a chronic callus on the plantar aspect of the 4th. 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 GERD (gastroesophageal reflux disease) Carpal tunnel syndrome Surgical History Surgical History History of incision and drainage Complex I&D Right foot infected diabetic foot ulcer measuring approximately 5x4cm. on 12/19/21 Status post debridement (12/2020) Right foot abscess, osteomyelitis. History of coronary artery stent placement History of cardiac catheterization History of colonoscopy with polypectomy History of repair of hiatal hernia (2001) History of coronary artery bypass graft History of carpal tunnel release History of arthroscopy of right knee History of hernia repair (2018) Finger amputee Right 2nd finger secondary to crush injury. History of right hemicolectomy with ileocolic anastomsis in 2019 Family History Family History Sibling Family history of malignant neoplasm Father Family history of chronic obstructive pulmonary disease Hypertension Heart disease Mother Hypertension Cancer Sibling Cancer Sibling Cancer Sibling Cancer Social History Social History Social History: The patient is and lives with his and 1 son in [place]. They have 4 children. 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 No alcohol or illicit substance abuse. Surrogate medical decision maker: Tash Orantes, spouse. Code status: Full code. Years smoked: 10 Smoking status: Former smoker Tobacco type: cigarettes Alcohol intake: never Substance use: never Substance use type: does not use Do You Feel Safe in your Home?: Yes Lack of Transportation: No Lack of Food: Never True Current Housing: I Have Housing Concerned About Future Housing: No Difficulty Paying Gas/Electric Bills: No Difficulty Paying for Meds: No Currently Unemployed: No Education: High School Diploma/GED Living arrangements: with family Occupation/Education: retired Gender identity (if verbalized by the patient): Male Sexual Orientation (if Verbalized by the Patient): Straight or Heterosexual Spiritual care concerns: No Meds Home Medications and Allergies Home Medications ?Medication ?Instructions ?Recorded ?Confirmed ?Type aspirin 81 mg capsule 81 mg PO DAILY 03/21/22 06/17/24 History 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 sensor (Dexcom G7 #3 ea 08/04/23 12/07/23 Rx Sensor device) Dexcom G7 Sensor (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 #1 ea 06/17/24 06/17/24 Rx sensor) Jardiance 10 mg tablet 10 mg PO DAILY 30 days #30 tabs 06/18/24 Rx (empagliflozin) Lantus Solostar U-100 Insulin 100 10 unit (0.1 mL) subcut QPM #15 mL 06/18/24 Rx unit/mL (3 mL) subcutaneous pen (insulin glargine) rosuvastatin 5 mg tablet 5 mg PO DAILY #90 tabs 06/18/24 Rx doxycycline hyclate 100 mg capsule 100 mg PO BID 10 days #20 caps 08/02/24 Rx Allergies Allergy/AdvReac Type Severity Reaction Status Date / Time No Known Allergies Allergy Verified 06/17/24 15:09 Exam Const: General: healthy appearing; No in distress or confusion Orientation/consciousness: oriented to person, oriented to place, oriented to time and No confusion HENMT: Head: normal to inspection, normocephalic and atraumatic Eyes: Conjunctivae: conjunctivae normal Sclera: sclerae normal Neck: Neck: supple and nontender Resp: Effort & Inspection: normal respiratory effort and no audible wheezes Cardio: Rhythm: regular rhythm Skin: General skin exam: no rashes or lesions noted Neuro: General: oriented to person, oriented to place, oriented to time and No confusion Extrem: Right upper extremity: normal to inspection Left upper extremity: normal to inspection Right lower extremity: ankle Details: normal to inspection, abnormal ROM Details: with range as follows (ankle dorsiflexion -10 degrees, plantar flexion 40?, inversion 15?, eversion 15?) and other ( good stability all directions); no tenderness, no swelling and no ecchymosis and foot Details: abnormal to inspection ( extension deformity of the 3rd and 4th toe) Details: other ( 1 x 1 cm ulcer plantar forefoot under the 4th metatarsal head surrounding callus. No surrounding erythema. No drainage.), abnormal ROM of toe ( hallux MTP dorsiflexion 40, plantar flexion 20?), vascular exam Details: dorsalis pedis pulse present (decreased, faintly palpable ) and normal capillary refill, tendon exam Details: active flexion abnormal and active extension abnormal, motor-sensory exam Details: two point discrimination abnormal Location: in all toes and light-touch abnormal Location: in all toes and other (Hallux metatarsophalangeal motion 20? dorsiflexion/10? plantar flexion) Left lower extremity: ankle Details: normal to inspection and abnormal ROM Details: with range as follows (ankle dorsiflexion -10 degrees, plantar flexion 40?, inversion 15?, eversion 15?); no tenderness and no swelling and foot Details: normal capillary refill, abnormal ROM of toe, vascular exam (2+DP pulse, good cap refill all toes), tendon exam active flexion abnormal of the great toe and active extension abnormal of the great toe and motor-sensory exam two point discrimination abnormal and light-touch abnormal in all toes; no tenderness and no crepitus Other: Wound on the plantar aspect of the right 4th MTP joint measures 0.8x1.0x0.3 cm. 100% red/pink wound bed. No signs of active infection. Psych: Affect: normal affect Assessment and Plan Assessment and plan (1) Diabetic ulcer of right foot: Qualifiers: Diabetic foot ulcer location: other Diabetes mellitus type: type 2 Non-pressure ulcer stage: with necrosis of muscle Qualified Code(s): E11.621 - Type 2 diabetes mellitus with foot ulcer; L97.513 - Non-pressure chronic ulcer of other part of right foot with necrosis of muscle Code(s): E11.621 - Type 2 diabetes mellitus with foot ulcer; L97.519 - Non-pressure chronic ulcer of other part of right foot with unspecified severity Status: Inactive Assessment and Plan: Follow up of right DFU. Patient with a history of peripheral neuropathy and type 2 diabetes, uncontrolled with most recent HgB A1C in November of 12%. History of previous infection with osteo right foot. Previous radiographs show deformity of the 3rd and 4th MTP joints now with extension deformity of the toes and increased plantar pressure of the forefoot. Wound with improvement in comparison to previous. Abundant callus formation requiring debridement today under sterile conditions. Measurements today at 0.8x1.0x0.3 cm, 100% red/pink wound bed. No signs of worsening infection. No ability to move forward with surgical intervention due to uncontrolled DM. Discussed risks of urgent needs based on risk of infection. Reviewed activity restrictions. Reviewed dietary precautions and medication compliance. Will reevaluate in 4 weeks. (2) Peripheral sensory neuropathy due to type 2 diabetes mellitus: Code(s): E11.42 - Type 2 diabetes mellitus with diabetic polyneuropathy Status: Acute Assessment and Plan: Discussed importance of proper nutrition, diabetic diet and medication compliance for optimal healing. Reviewed signs and symptoms of infection including fever, chills, night sweats, nausea, vomiting, diarrhea, changes to the wound bed or purulent drainage to report to the ED immediately. Patient verbalized understanding. Debridement/Burn/Wound Pre Procedure Consent was obtained, Procedures/risks were explained, Questions were answered, Correct patient identified and Correct side and site confirmed Episode Return Visit Area was prepped and draped using sterile technique?: Yes Ulcer/Wound Debridement, skin, first 20 sq cm or less: Yes Right (plantar foot wound ) Comments:: Debridement of the skin, subcutaneous tissue under sterile conditions with #15 blade knife. All devitalized tissue removed. Procedure tolerated well. Patient instructed on post-debridement dressing changes. Reviewed signs/symptoms of complications to report to the office. Patient verbalized understanding and agrees with plan of care. Dressing Applied antibiotic ointment and Applied sterile dressing Post Procedure Patient tolerated the procedure well?: Tolerated procedure well
--- NOTE | 2024-08-27 08:47 | PM.IMHP ---
H&P: HPI History of Present Illness Date/Time: 08/27/24 08:47 Chief Complaint: Right foot wound Narrative: 68-year-old male returns to the [facility] for right diabetic foot ulcer. Deformity of the 3rd and 4th toe and a chronic callus on the plantar aspect of the 4th. New, acute onset left heel ulcer for which he was evaluated by his PCP on Monday and started on oral antibiotics. Wound is painful, malodorous, draining. He reports fever, chills, night sweats over the weekend. Known noncompliance with DM management. Elevated HgB A1C for several months. 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 GERD (gastroesophageal reflux disease) Carpal tunnel syndrome Surgical History Surgical History History of incision and drainage Complex I&D Right foot infected diabetic foot ulcer measuring approximately 5x4cm. on 12/19/21 Status post debridement (12/2020) Right foot abscess, osteomyelitis. History of coronary artery stent placement History of cardiac catheterization History of colonoscopy with polypectomy History of repair of hiatal hernia (2001) History of coronary artery bypass graft History of carpal tunnel release History of arthroscopy of right knee History of hernia repair (2019) Finger amputee Right 2nd finger secondary to crush injury. History of right hemicolectomy with ileocolic anastomsis in 2019 Family History Family History Sibling Family history of malignant neoplasm Father Family history of chronic obstructive pulmonary disease Hypertension Heart disease Mother Hypertension Cancer Sibling Cancer Sibling Cancer Sibling Cancer Social History Social History Social History: The patient is and lives with his and 1 son in [place]. They have 4 children. 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 No alcohol or illicit substance abuse. Surrogate medical decision maker: Tash Orantes, spouse. Code status: Full code. Years smoked: 10 Smoking status: Former smoker Tobacco type: cigarettes Alcohol intake: never Substance use: never Substance use type: does not use Do You Feel Safe in your Home?: Yes Lack of Transportation: No Lack of Food: Never True Current Housing: I Have Housing Concerned About Future Housing: No Difficulty Paying Gas/Electric Bills: No Difficulty Paying for Meds: No Currently Unemployed: No Education: High School Diploma/GED Living arrangements: with family Occupation/Education: retired Gender identity (if verbalized by the patient): Male Sexual Orientation (if Verbalized by the Patient): Straight or Heterosexual Spiritual care concerns: No Meds Home Medications and Allergies Home Medications ?Medication ?Instructions ?Recorded ?Confirmed ?Type aspirin 81 mg capsule 81 mg PO DAILY 03/21/22 08/23/24 History 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 sensor (Dexcom G7 #3 ea 08/04/23 08/23/24 Rx Sensor device) Dexcom G7 Sensor (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 #1 ea 06/17/24 08/23/24 Rx sensor) Jardiance 10 mg tablet 10 mg PO DAILY 30 days #30 tabs 06/18/24 08/23/24 Rx (empagliflozin) Lantus Solostar U-100 Insulin 100 10 unit (0.1 mL) subcut QPM #15 mL 06/18/24 08/23/24 Rx unit/mL (3 mL) subcutaneous pen (insulin glargine) metformin 500 mg tablet 500 mg PO DAILY #100 tabs 08/23/24 08/23/24 Rx sulfamethoxazole 800 1 tablet PO Q12H 10 days #20 tabs 08/23/24 08/23/24 Rx mg-trimethoprim 160 mg tablet (Bactrim DS) pen needle, diabetic 31 gauge x #100 ea 08/26/24 Rx 5/16 (Comfort EZ Pen [place]) Allergies Allergy/AdvReac Type Severity Reaction Status Date / Time No Known Allergies Allergy Verified 08/23/24 13:10 Exam Const: General: healthy appearing; No in distress or confusion Orientation/consciousness: oriented to person, oriented to place, oriented to time and No confusion HENMT: Head: normal to inspection, normocephalic and atraumatic Eyes: Conjunctivae: conjunctivae normal Sclera: sclerae normal Neck: Neck: supple and nontender Resp: Effort & Inspection: normal respiratory effort and no audible wheezes Cardio: Rhythm: regular rhythm Skin: General skin exam: no rashes or lesions noted Neuro: General: oriented to person, oriented to place, oriented to time and No confusion Extrem: Right upper extremity: normal to inspection Left upper extremity: normal to inspection Right lower extremity: ankle Details: normal to inspection, abnormal ROM Details: with range as follows (ankle dorsiflexion -10 degrees, plantar flexion 40?, inversion 15?, eversion 15?) and other ( good stability all directions); no tenderness, no swelling and no ecchymosis and foot Details: abnormal to inspection ( extension deformity of the 3rd and 4th toe) Details: other ( 1 x 1 cm ulcer plantar forefoot under the 4th metatarsal head surrounding callus. No surrounding erythema. No drainage.), abnormal ROM of toe ( hallux MTP dorsiflexion 40, plantar flexion 20?), vascular exam Details: dorsalis pedis pulse present (decreased, faintly palpable ) and normal capillary refill, tendon exam Details: active flexion abnormal and active extension abnormal, motor-sensory exam Details: two point discrimination abnormal Location: in all toes and light-touch abnormal Location: in all toes and other (Hallux metatarsophalangeal motion 20? dorsiflexion/10? plantar flexion) Left lower extremity: ankle Details: normal to inspection and abnormal ROM Details: with range as follows (ankle dorsiflexion -10 degrees, plantar flexion 40?, inversion 15?, eversion 15?); no tenderness and no swelling and foot Details: normal capillary refill, tenderness, abnormal ROM of toe, warmth, edema, vascular exam (2+DP pulse, good cap refill all toes), tendon exam active flexion abnormal of the great toe and active extension abnormal of the great toe and motor-sensory exam two point discrimination abnormal and light-touch abnormal in all toes; no crepitus Other: Wound on the plantar aspect of the right 4th MTP joint measures 0.8x1.0x0.3 cm. 100% red/pink wound bed. No signs of active infection. Wound on the calcaneus of the left heel measures 8x12cm, 80% yellow/villarreal, 20% pink. No depth determined due to necrotic tissue. Malodorous. Psych: Affect: normal affect Assessment and Plan Assessment and plan (1) Heel ulcer due to DM: Qualifiers: Diabetes mellitus type: type 2 Laterality: left Non-pressure ulcer stage: with necrosis of muscle Qualified Code(s): E11.621 - Type 2 diabetes mellitus with foot ulcer; L97.423 - Non-pressure chronic ulcer of left heel and midfoot with necrosis of muscle Code(s): E11.621 - Type 2 diabetes mellitus with foot ulcer; L97.409 - Non-pressure chronic ulcer of unspecified heel and midfoot with unspecified severity Status: Acute Assessment and Plan: 1 week history of left heel pain with acute onset heel blister on . Evaluated by PCP on Monday. Started on oral antibiotics. Reports increasing fevers, chills, night sweats over the weekend. Malodorous drainage. Wound measures 8x12cm, 80% yellow/villarreal wound bed with 20% pink tissue. Surrounding tissue with evidence of cellulitis. Left foot swelling noted as well. Patient known to be noncompliance with DM. Elevated HgB A1C for several months. Noncompliant with appropriate shoe wear. Recommended admission for Left Foot XR, possible MRI, IV antibiotics, daily dressing changes with Dakins to start and possible transition to Santyl. Possible surgical debridement pending further imaging and progress with conservative treatment. Patient/family agreeable to admission. Hospitalist service consulted from wound clinic. Accepted to hospitalist service. Will follow as an inpatient. Reviewed history, exam with attending MD and covering surgeon, Dr. Lam, who agrees with current plan as indicated above. No further recommendations from Dr. Lam at this time. (2) Diabetic ulcer of right foot: Qualifiers: Diabetic foot ulcer location: other Diabetes mellitus type: type 2 Non-pressure ulcer stage: with necrosis of muscle Qualified Code(s): E11.621 - Type 2 diabetes mellitus with foot ulcer; L97.513 - Non-pressure chronic ulcer of other part of right foot with necrosis of muscle Code(s): E11.621 - Type 2 diabetes mellitus with foot ulcer; L97.519 - Non-pressure chronic ulcer of other part of right foot with unspecified severity Status: Inactive Assessment and Plan: Follow up of right DFU. Patient with a history of peripheral neuropathy and type 2 diabetes, uncontrolled with most recent HgB A1C in November of 12%. History of previous infection with osteo right foot. Previous radiographs show deformity of the 3rd and 4th MTP joints now with extension deformity of the toes and increased plantar pressure of the forefoot. Wound with improvement in comparison to previous. Abundant callus formation. No signs of infection. (3) Peripheral sensory neuropathy due to type 2 diabetes mellitus: Code(s): E11.42 - Type 2 diabetes mellitus with diabetic polyneuropathy Status: Acute
== END 2024-09-09 23:59 | disposition home or self-care (01) ==
LOC: ANHWOC 07:32
PROVIDERS: PCP Family Medicine; Visit Provider Nurse Practitioner Family
DX: L97.513 Non-pressure chronic ulcer of other part of right foot with necrosis of muscle (principal); E11.42 Type 2 diabetes mellitus with diabetic polyneuropathy; E11.621 Type 2 diabetes mellitus with foot ulcer
CPT/HCPCS: 11042; 99213; A9270; G0463; J3010

== ENCOUNTER 2024-08-27 10:02 | Inpatient (IN) | payer MEDICARE, SELFPAY ==
--- NOTE | ~2024-08-27 | MR_ITS ---
EXAMINATION: MR foot LT wo/w con DATE: 08/28/2024 10:55 INDICATION: Left heel abscess TECHNIQUE: Magnetic resonance imaging (MRI) of the left mid and hindfoot was performed without intrav enous contrast. Sequences included axial, sagittal and coronal T1-weighted FSE, sagittal fluid sensit elo FSE STIR, axial and coronal T2-weighted FS FSE, axial T1-weighted FS FSE and postcontrast axial, sagittal and coronal T1-weighted FS FSE. COMPARISON: None FINDINGS: There is a skin ulceration at the heel posterior to the posterior tuberosity of the calcaneus. There is soft tissue edema and multiple foci of soft tissue gas in the surrounding heel fat pad. The foci o f gas remain within 3 cm of the skin ulceration. No abscess. There is marrow edema and enhancement at the lateral/plantar margin of the posterior tuberosity of the calcaneus but without definitive lashanda ical erosion or geographic loss of T1 fat signal which remains reactive change related to the adjacen t infection versus early osteomyelitis. Polyarticular osteoarthritis, moderate severity with mild subarticular edema-like signal change at th e first tarsal metatarsal joint and at the articulation between the medial and mid cuneiforms. Mild o steoarthritis at many of the remaining joints in the midfoot. There is cystic change versus chronic e rosion without enhancement at the posterior medial aspect of the distal tibia along the degree of und erlying the tibialis posterior tendon. Physiologic amount fluid in the joint spaces with no joint eff usion. There is thickening of the anterior-inferior tibiofibular ligament and loss of the normally sh gerald well-defined striated pattern of the deep deltoid ligament consistent with sequela of chronic spr ains. Remaining stabilizing ligaments of the lateral ankle as well as the superficial deltoid ligamen t, spring ligament complex and the Lisfranc ligament complex are normal. The flexor and extensor tend ons of the ankle including the Achilles tendon are normal. Plantar aponeurosis is normal. There are m oderate-sized Achilles and plantar calcaneal spurs. There is diffuse subcutaneous edema about the ank le, mid and hindfoot. Additional there is prominent nonspecific but likely reactive increased fluid s ignal throughout the intrinsic muscular the foot without evident enhancement or fatty atrophy. IMPRESSION 1. Numerous foci of soft tissue gas localized to the heel fat pad surrounding a skin ulceration witho ut abscess. 2. Marrow edema and enhancement along the underlying plantar/lateral margin of the posterior tuberosi ty of the calcaneus which could be reactive or due to early osteomyelitis although there is no defini tive cortical erosion or geographic loss of T1 fat signal to more specifically suggest osteomyelitis. 3. Mild to moderate polyarticular osteoarthritis in the midfoot. 4. Chronic sprains of the deep deltoid ligament and anterior inferior tibiofibular ligament. Reviewed, dictated and finalized at location A. IMPRESSION 1. Numerous foci of soft tissue gas localized to the heel fat pad surrounding a skin ulceration without abscess. 2. Marrow edema and enhancement along the underlying plantar/lateral margin of the posterior tuberosity of the calcaneus which could be reactive or due to ear ly osteomyelitis although there is no definitive cortical erosion or geographic loss of T1 fat signal to more specifically suggest osteomyelitis. 3. Mild to moderate polyarticular osteoarthritis in the midfoot. 4. Chronic sprains of the deep deltoid ligament and anterior inferior tibiofibu lar ligament.
--- NOTE | ~2024-08-27 | US_ITS ---
ULTRASOUND ANKLE BRACHIAL INDEX Ordering provider: DEE Rodriguez History: . DM, b/l foot wounds . Comparison: None. FINDINGS: Right brachial systolic blood pressure: 147 mmHg Left brachial systolic blood pressure: 04/20/2021 mmHg Right ankle systolic blood pressure: 197 mmHg Left ankle systolic blood pressure: 162 mmHg Right ankle/arm index (RANDAL): 1.34 Left ankle/arm index (RANDAL): 1.1 Note regarding RANDAL: --Normal= 1.0 or slightly greater. --Claudication (moderate stenosis or occlusive state)= 0.6 to 0.9. --Rest pain (severe occlusive states)= 0.5 or less. IMPRESSION: Normal RANDAL. Reviewed, dictated and finalized at location A. IMPRESSION: Normal RANDAL.
--- NOTE | ~2024-08-27 | XR_ITS ---
EXAMINATION: XR foot LT min 3V DATE: 08/27/2024 11:18 INDICATION: Left foot wound TECHNIQUE: Dorsoplantar, two oblique and lateral views of the left foot were obtained. COMPARISON: None. FINDINGS: Bone alignment is normal. No fracture. Mild polyarticular osteoarthritis at the first metatarsophalan geal and multiple tarsometatarsal and interphalangeal joints. There is a juxta articular erosion with overhanging edges and thin sclerotic margins at the medial head of the first proximal phalanx. Addit ional smaller juxta articular erosions are seen at the lateral margin of the head of the third proxim al phalanx, medial and lateral margins of the fourth and fifth proximal interphalangeal joints. Appea supa and distribution would be most consistent with gout. Small Achilles and plantar calcaneal spurs . There is mottled pattern of soft tissue gas at the heel fat pad. No underlying cortical erosion to suggest osteomyelitis. IMPRESSION: 1. Soft tissue gas at the heel fat pad with likely related to an overlying skin ulceration. Different ial for soft tissue gas includes necrotizing fasciitis which is ultimately a clinical diagnosis. No a ssociated osteomyelitis. Findings were discussed with Keily Centeno, the nurse caring for the patient, at 11:37 AM. 2. Mild polyarticular osteoarthritis in the mid and forefoot with erosions at the heads of multiple p roximal phalanges with displacement appearance most suggestive of gout. Reviewed, dictated and finalized at location A. IMPRESSION: 1. Soft tissue gas at the heel fat pad with likely related to an overlying skin ulceration. Differential for soft tissue gas includes necrotizing fasciitis wh ich is ultimately a clinical diagnosis. No associated osteomyelitis. Findings w ere discussed with Keily Centeno, the nurse caring for the patient, at 11:37 AM. 2. Mild polyarticular osteoarthritis in the mid and forefoot with erosions at t he heads of multiple proximal phalanges with displacement appearance most sugge stive of gout.
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
--- OUTSIDE RECORDS SUMMARY | 2024-08-27 09:35 | XMS_ITS | Encounter Summary ---
Author Organization [employer] Address [address] [place] [address] Care Team Providers Care Forge Operator Helper Name Role Phone Unavailable Primary Care Provider Unavailabl e Encounter Details Date Type Department Care Team (Latest Contact Info) Description 06/06/2005 Inpatient Historical HIS PATIENT IN A BED Patric Thomas MD [address] [address] [facility] FIRST EPISODE [facility]ARE ([facility]) (Primary Dx) Social History Tobacco Use Types Packs/Day Years Used Date Smoking Tobacco: Never Assessed Sex and Gender Information Value Date Recorded Sex Assigned at Not on file Legal Sex Male 4:42 AM WASH AND GREASER Gender Identity Not on file Sexual Orientation Not on file documented as of this encounter Plan of Treatment Not on file documented as of this encounter Procedures Procedure Name Priority Date/Time Associated Diagnosis Comments POC GLUCOSE Routine 06/09/2005 6:58 AM WASH AND GREASER POC GLUCOSE Routine 06/08/2005 10:11 PM WASH AND GREASER POC GLUCOSE Routine 06/08/2005 4:29 PM WASH AND GREASER POC GLUCOSE Routine 06/08/2005 11:22 AM WASH AND GREASER POC GLUCOSE Routine 06/08/2005 6:54 AM WASH AND GREASER CBC WITH DIFFERENTIAL Routine 06/08/2005 5:05 AM WASH AND GREASER CBC WITH DIFFERENTIAL Routine 06/08/2005 5:05 AM WASH AND GREASER MAGNESIUM LEVEL Routine 06/08/2005 5:05 AM WASH AND GREASER BASIC METABOLIC PANEL Routine 06/08/2005 5:05 AM WASH AND GREASER POC GLUCOSE Routine 06/07/2005 9:14 PM WASH AND GREASER CBC WITH DIFFERENTIAL Routine 06/07/2005 5:12 PM WASH AND GREASER CBC WITH DIFFERENTIAL Routine 06/07/2005 5:12 PM WASH AND GREASER POC GLUCOSE Routine 06/07/2005 4:33 PM WASH AND GREASER POC GLUCOSE Routine 06/07/2005 11:44 AM WASH AND GREASER CBC WITH DIFFERENTIAL Routine 06/07/2005 5:36 AM WASH AND GREASER CBC WITH DIFFERENTIAL Routine 06/07/2005 5:36 AM WASH AND GREASER BASIC METABOLIC PANEL Routine 06/07/2005 5:36 AM WASH AND GREASER POC GLUCOSE Routine 06/07/2005 5:31 AM WASH AND GREASER CK TOTAL, RELATIVE INDEX Routine 06/07/2005 4:10 AM WASH AND GREASER CKMB W/REFLEX CK Routine 06/07/2005 4:10 AM WASH AND GREASER TROPONIN (W/REFLEX CKMB/CK) Routine 06/07/2005 4:10 AM WASH AND GREASER MAGNESIUM LEVEL Routine 06/07/2005 4:10 AM WASH AND GREASER POC GLUCOSE Routine 06/07/2005 12:40 AM WASH AND GREASER CK TOTAL, RELATIVE INDEX Routine 06/06/2005 11:30 PM WASH AND GREASER CKMB W/REFLEX CK Routine 06/06/2005 11:3 0 PM WASH AND GREASER CBC WITH DIFFERENTIAL Routine 06/06/2005 11:30 PM WASH AND GREASER CBC WITH DIFFERENTIAL Routine 06/06/2005 11:30 PM WASH AND GREASER MAGNESIUM LEVEL Routine 06/06/2005 11:30 PM WASH AND GREASER LIPID PANEL Routine 06/06/2005 11:30 PM WASH AND GREASER COMPREHENSIVE METABOLIC PANEL Routine 06/06/2005 11:30 PM WASH AND GREASER POC GLUCOSE Routine 06/06/2005 8:43 PM WASH AND GREASER documented in this encounter Results * (ABNORMAL) POC GLUCOSE (06/09/2005 6:58 AM WASH AND GREASER) GLUCOSE POC 214(H) 65 - 109 mg/dL INTERFACE SYSTEM 06/09/2005 6:58 AM WASH AND GREASER Patric Thomas MD POINT OF CARE TESTING Fin al Result Performing Organization Address [facility] Phone Number INTERFACE SYSTEM Refer to clinic/hospital department * (ABNORMAL) POC GLUCOSE (06/08/2005 10:11 PM WASH AND GREASER) GLUCOSE POC 262(H) 65 - 109 mg/dL INTERFACE SYSTEM 06/08/2005 10:1 1 PM WASH AND GREASER Patric Thomas MD POINT OF CARE TESTING Fin al Result Performing Organization Address [facility] Phone Number INTERFACE SYSTEM Refer to clinic/hospital department * (ABNORMAL) POC GLUCOSE (06/08/2005 4:29 PM WASH AND GREASER) GLUCOSE POC 268(H) 65 - 109 mg/dL INTERFACE SYSTEM 06/08/2005 4:29 PM WASH AND GREASER Patric Thomas MD POINT OF CARE TESTING Fin al Result Performing Organization Address [facility] de Phone Number INTERFACE SYSTEM Refer to clinic/hospital department * (ABNORMAL) POC GLUCOSE (06/08/2005 11:22 AM WASH AND GREASER) GLUCOSE POC 253(H) 65 - 109 mg/dL INTERFACE SYSTEM 06/08/2005 11:2 2 AM WASH AND GREASER Patric Thomas MD POINT OF CARE TESTING Fin al Result Performing Organization Address [facility] de Phone Number INTERFACE SYSTEM Refer to clinic/hospital department * (ABNORMAL) POC GLUCOSE (06/08/2005 6:54 AM WASH AND GREASER) GLUCOSE POC 214(H) 65 - 109 mg/dL INTERFACE SYSTEM 06/08/2005 6:54 AM WASH AND GREASER Patric Thomas MD POINT OF CARE TESTING Fin al Result Performing Organization Address [facility] de Phone Number INTERFACE SYSTEM Refer to clinic/hospital department * CBC WITH DIFFERENTIAL (06/08/2005 5:05 AM WASH AND GREASER) NEUTROPHILS 57 45 - 70 % INTERFAC E SYSTEM LYMPHOCYTES 32 16 - 45 % INTERFAC E SYSTEM MONOCYTES 9 3 - 13 % INTERFACE SYSTEM EOSINOPHILS 1 0 - 7 % INTERFAC E SYSTEM BASOPHILS 0 0 - 2 % INTERFACE SYSTEM NEUTROPHIL ABSOLUTE 4.31 1.90 - 7.00 K/uL INTERFACE SYSTEM LYMPHOCYTE ABSOLUTE 2.43 0.70 - 4.50 K/uL INTERFACE SYSTEM MONOCYTE ABSOLUTE 0.68 0.10 - 1.30 K/uL INTERFACE SYSTEM EOSINOPHIL ABSOLUTE 0.10 0.00 - 0.70 K/uL INTERFACE SYSTEM BASOPHILS ABSOLUTE 0.01 0.00 - 0.20 K/uL INTERFACE SYSTEM 06/08/2005 5:05 AM WASH AND GREASER Patric Thomas MD HEMATOLOGY ORDERABLES Fin al Result Performing Organization Address [facility] de Phone Number INTERFACE SYSTEM Refer to clinic/hospital department * CBC WITH DIFFERENTIAL (06/08/2005 5:05 AM WASH AND GREASER) WBC 7.5 4.0 - 9.8 K/uL INTERFACE SYSTEM RBC 4.95 4.50 - 5.40 M/uL INTERFACE SYSTEM HEMOGLOBIN 14.3 13.6 - 16.5 g/dL INTERFACE SYSTEM HEMATOCRIT 42.0 40.0 - 48.0 % INTERFACE SYSTEM MCV 84.8 82.0 - 99.0 fL INTERFACE SYSTEM MCH 28.9 27.2 - 32.6 pg INTERFACE SYSTEM MCHC 34.0 31.5 - 35.5 % INTERFACE SYSTEM RDW 12.4 11.5 - 14.5 % INTERFACE SYSTEM RDW-STDEV 37.9 37.1 - 48.7 fL INTERFACE SYSTEM PLATELETS 190 140 - 350 K/uL INTERFACE SYSTEM MPV 9.7 9.3 - 12.4 fL INTERFACE SYSTEM 06/08/2005 5:05 AM WASH AND GREASER Patric Thomas MD HEMATOLOGY ORDERABLES Fin al Result Performing Organization Address [facility] Phone Number INTERFACE SYSTEM Refer to clinic/hospital department * MAGNESIUM LEVEL (06/08/2005 5:05 AM WASH AND GREASER) MAGNESIUM 1.9 1.5 - 2.5 mg/dL INTERFACE SYSTEM 06/08/2005 5:05 AM WASH AND GREASER Patric Thomas MD CHEMISTRY ORDERABLES Freya l Result Performing Organization Address [facility] Phone Number INTERFACE SYSTEM Refer to clinic/hospital department * (ABNORMAL) BASIC METABOLIC PANEL (06/08/2005 5:05 AM WASH AND GREASER) GLUCOSE 218(H) 65 - 109 mg/dL INTERFACE SYSTEM CREATININE 0.8 0.5 - 1.3 mg/dL INTERFACE SYSTEM CALCIUM 8.8 8.6 - 10.2 mg/dL INTERFACE SYSTEM BUN 13 6 - 20 mg/dL INTERFACE SYSTEM SODIUM 136 135 - 145 mmol/L INTERFACE SYSTEM POTASSIUM 4.4 3.5 - 4.9 mmol/L INTERFACE SYSTEM CHLORIDE 100 96 - 108 mmol/L INTERFACE SYSTEM CO2 31(H) 22 - 30 mmol/L INTERFACE SYSTEM 06/08/2005 5:05 AM WASH AND GREASER Patric Thomas MD CHEMISTRY ORDERABLES Freya l Result Performing Organization Address [facility] Phone Number INTERFACE SYSTEM Refer to clinic/hospital department * (ABNORMAL) POC GLUCOSE (06/07/2005 9:14 PM WASH AND GREASER) GLUCOSE POC 226(H) 65 - 109 mg/dL INTERFACE SYSTEM 06/07/2005 9:14 PM WASH AND GREASER Patric Thomas MD POINT OF CARE TESTING Fin al Result Performing Organization Address [facility] de Phone Number INTERFACE SYSTEM Refer to clinic/hospital department * CBC WITH DIFFERENTIAL (06/07/2005 5:12 PM WASH AND GREASER) NEUTROPHILS 64 45 - 70 % INTERFAC E SYSTEM LYMPHOCYTES 27 16 - 45 % INTERFAC E SYSTEM MONOCYTES 8 3 - 13 % INTERFACE SYSTEM EOSINOPHILS 1 0 - 7 % INTERFAC E SYSTEM BASOPHILS 0 0 - 2 % INTERFACE SYSTEM NEUTROPHIL ABSOLUTE 5.43 1.90 - 7.00 K/uL INTERFACE SYSTEM LYMPHOCYTE ABSOLUTE 2.29 0.70 - 4.50 K/uL INTERFACE SYSTEM MONOCYTE ABSOLUTE 0.66 0.10 - 1.30 K/uL INTERFACE SYSTEM EOSINOPHIL ABSOLUTE 0.09 0.00 - 0.70 K/uL INTERFACE SYSTEM BASOPHILS ABSOLUTE 0.02 0.00 - 0.20 K/uL INTERFACE SYSTEM 06/07/2005 5:12 PM WASH AND GREASER Eric Carter HEMATOLOGY ORDERABLES Final Resu lt Performing Organization Address [facility] Phone Number INTERFACE SYSTEM Refer to clinic/hospital department * (ABNORMAL) CBC WITH DIFFERENTIAL (06/07/2005 5:12 PM WASH AND GREASER) WBC 8.5 4.0 - 9.8 K/uL INTERFACE SYSTEM RBC 4.61 4.50 - 5.40 M/uL INTERFACE SYSTEM HEMOGLOBIN 13.7 13.6 - 16.5 g/dL INTERFACE SYSTEM HEMATOCRIT 38.4(L) 40.0 - 48.0 % INTERFACE SYSTEM MCV 83.3 82.0 - 99.0 fL INTERFACE SYSTEM MCH 29.7 27.2 - 32.6 pg INTERFACE SYSTEM MCHC 35.7(H) 31.5 - 35.5 % INTERFACE SYSTEM RDW 12.4 11.5 - 14.5 % INTERFACE SYSTEM RDW-STDEV 37.7 37.1 - 48.7 fL INTERFACE SYSTEM PLATELETS 191 140 - 350 K/uL INTERFACE SYSTEM MPV 9.7 9.3 - 12.4 fL INTERFACE SYSTEM 06/07/2005 5:12 PM WASH AND GREASER Eric Carter HEMATOLOGY ORDERABLES Final Resu lt INTERFACE SYSTEM Refer to clinic/hospital department * (ABNORMAL) POC GLUCOSE (06/07/2005 4:33 PM WASH AND GREASER) GLUCOSE POC 218(H) 65 - 109 mg/dL INTERFACE SYSTEM 06/07/2005 4:33 PM WASH AND GREASER Patric Thomas MD POINT OF CARE TESTING Fin al Result Performing Organization Address [facility] de Phone Number INTERFACE SYSTEM Refer to clinic/hospital department * (ABNORMAL) POC GLUCOSE (06/07/2005 11:44 AM WASH AND GREASER) GLUCOSE POC 271(H) 65 - 109 mg/dL INTERFACE SYSTEM 06/07/2005 11:4 4 AM WASH AND GREASER Patric Thomas MD POINT OF CARE TESTING Fin al Result Performing Organization Address [facility] Co de Phone Number INTERFACE SYSTEM Refer to clinic/hospital department * (ABNORMAL) CBC WITH DIFFERENTIAL (06/07/2005 5:36 AM WASH AND GREASER) NEUTROPHILS 73(H) 45 - 70 % INTERFAC E SYSTEM LYMPHOCYTES 18 16 - 45 % INTERFAC E SYSTEM MONOCYTES 9 3 - 13 % INTERFACE SYSTEM EOSINOPHILS 0 0 - 7 % INTERFAC E SYSTEM BASOPHILS 0 0 - 2 % INTERFACE SYSTEM NEUTROPHIL ABSOLUTE 7.05(H) 1.90 - 7.00 K/uL INTERFACE SYSTEM LYMPHOCYTE ABSOLUTE 1.77 0.70 - 4.50 K/uL INTERFACE SYSTEM MONOCYTE ABSOLUTE 0.87 0.10 - 1.30 K/uL INTERFACE SYSTEM EOSINOPHIL ABSOLUTE 0.02 0.00 - 0.70 K/uL INTERFACE SYSTEM BASOPHILS ABSOLUTE 0.01 0.00 - 0.20 K/uL INTERFACE SYSTEM 06/07/2005 5:36 AM WASH AND GREASER us Carmina Dick MD HEMATOLOGY ORDERABLES Final Resu lt INTERFACE SYSTEM Refer to clinic/hospital department * (ABNORMAL) CBC WITH DIFFERENTIAL (06/07/2005 5:36 AM WASH AND GREASER) WBC 9.7 4.0 - 9.8 K/uL INTERFACE SYSTEM RBC 4.71 4.50 - 5.40 M/uL INTERFACE SYSTEM HEMOGLOBIN 13.8 13.6 - 16.5 g/dL INTERFACE SYSTEM HEMATOCRIT 39.6(L) 40.0 - 48.0 % INTERFACE SYSTEM MCV 84.1 82.0 - 99.0 fL INTERFACE SYSTEM MCH 29.3 27.2 - 32.6 pg INTERFACE SYSTEM MCHC 34.8 31.5 - 35.5 % INTERFACE SYSTEM RDW 12.3 11.5 - 14.5 % INTERFACE SYSTEM RDW-STDEV 37.9 37.1 - 48.7 fL INTERFACE SYSTEM PLATELETS 200 140 - 350 K/uL INTERFACE SYSTEM MPV 9.7 9.3 - 12.4 fL INTERFACE SYSTEM 06/07/2005 5:36 AM WASH AND GREASER us Carmina Dick MD HEMATOLOGY ORDERABLES Final Resu Performing Organization Address [facility] Phone Number INTERFACE SYSTEM Refer to clinic/hospital department * (ABNORMAL) BASIC METABOLIC PANEL (06/07/2005 5:36 AM WASH AND GREASER) GLUCOSE 194(H) 65 - 109 mg/dL INTERFACE SYSTEM CREATININE 0.6 0.5 - 1.3 mg/dL INTERFACE SYSTEM CALCIUM 8.6 8.6 - 10.2 mg/dL INTERFACE SYSTEM BUN 14 6 - 20 mg/dL INTERFACE SYSTEM SODIUM 136 135 - 145 mmol/L INTERFACE SYSTEM POTASSIUM 3.6 3.5 - 4.9 mmol/L INTERFACE SYSTEM CHLORIDE 101 96 - 108 mmol/L INTERFACE SYSTEM CO2 26 22 - 30 mmol/L INTERFACE SYSTEM 06/07/2005 5:36 AM WASH AND GREASER us Carmina Dick MD CHEMISTRY ORDERABLES Final Resul t Performing Organization Address [facility] Phone Number INTERFACE SYSTEM Refer to clinic/hospital department * (ABNORMAL) POC GLUCOSE (06/07/2005 5:31 AM WASH AND GREASER) GLUCOSE POC 197(H) 65 - 109 mg/dL INTERFACE SYSTEM 06/07/2005 5:31 AM WASH AND GREASER Patric Thomas MD POINT OF CARE TESTING Fin al Result Performing Organization Address [facility] Phone Number INTERFACE SYSTEM Refer to clinic/hospital department * (ABNORMAL) CK TOTAL, RELATIVE INDEX (06/07/2005 4:10 AM WASH AND GREASER) CK 2,552(H) 10 - 170 U/L INTERFACE SYSTEM CARDIAC RELATIVE INDEX 10.2(H) <=4.0 INTERFACE SYSTEM 06/07/2005 4:10 AM WASH AND GREASER Carmina Dick MD CHEMISTRY ORDERABLES Final Resul t Performing Organization Address [facility] Phone Number INTERFACE SYSTEM Refer to clinic/hospital department * (ABNORMAL) CKMB W/REFLEX CK (06/07/2005 4:10 AM WASH AND GREASER) CKMB 260.1(AA) <=6.7 ng/mL INTERFACE SYSTEM Comment:Results called to alka at 06/07/2005 5:15 AM and read back verified. CKMB INTERP See Below INTERFAC E SYSTEM Comment:Elevated CKMB,Consis tent with Myocardial Injury. 06/07/2005 4:10 AM WASH AND GREASER Carmina Dick MD CHEMISTRY ORDERABLES Final Resul t Performing Organization Address [facility] Phone Number INTERFACE SYSTEM Refer to clinic/hospital department * MAGNESIUM LEVEL (06/07/2005 4:10 AM WASH AND GREASER) MAGNESIUM 1.8 1.5 - 2.5 mg/dL INTERFACE SYSTEM 06/07/2005 4:10 AM WASH AND GREASER Patric Thomas MD CHEMISTRY ORDERABLES Freya l Result Performing Organization Address [facility] Phone Number INTERFACE SYSTEM Refer to clinic/hospital department * (ABNORMAL) TROPONIN (W/REFLEX CKMB/CK) (06/07/2005 4:10 AM WASH AND GREASER) TROPONIN T 5.35(AA) <=0.03 ng/mL INTERFACE SYSTEM Comment:Results called to Lyndsay fernandes at 06/07/2005 4:55 AM and read back verified. TROPONIN T INTERP See Below INTERFACE SYSTEM Comment:Elevated Troponin-T, Consistent with Myocardial Injury 06/07/2005 4:10 AM WASH AND GREASER aCrmina Dick MD CHEMISTRY ORDERABLES Final Resul t Performing Organization Address [facility] Phone Number INTERFACE SYSTEM Refer to clinic/hospital department * (ABNORMAL) POC GLUCOSE (06/07/2005 12:40 AM WASH AND GREASER) GLUCOSE POC 226(H) 65 - 109 mg/dL INTERFACE SYSTEM 06/07/2005 12:4 0 AM WASH AND GREASER Patric Thomas MD POINT OF CARE TESTING Fin al Result Performing Organization Address [facility] Phone Number INTERFACE SYSTEM Refer to clinic/hospital department * (ABNORMAL) CK TOTAL, RELATIVE INDEX (06/06/2005 11:30 PM WASH AND GREASER) CK 3,063(H) 10 - 170 U/L INTERFACE SYSTEM CARDIAC RELATIVE INDEX 12.1(H) <=4.0 INTERFACE SYSTEM 06/06/2005 11:3 0 PM WASH AND GREASER Carmina Dick MD CHEMISTRY ORDERABLES Final Resul t Performing Organization Address [facility] Phone Number INTERFACE SYSTEM Refer to clinic/hospital department * (ABNORMAL) CKMB W/REFLEX CK (06/06/2005 11:30 PM WASH AND GREASER) CKMB 369.5(AA) <=6.7 ng/mL INTERFACE SYSTEM Comment: Results called to Hiwot at 06/07/2005 7:19 AM and read back verified. Previous specimen used; approved by floor. , (2330 from 06/06/05) CKMB INTERP See Below INTERFAC E SYSTEM Comment:Elevated CKMB,Consis tent with Myocardial Injury. 06/06/2005 11:3 0 PM WASH AND GREASER Carmina Dick MD CHEMISTRY ORDERABLES Final Resul t Performing Organization Address [facility] Phone Number INTERFACE SYSTEM Refer to clinic/hospital department * MAGNESIUM LEVEL (06/06/2005 11:30 PM WASH AND GREASER) MAGNESIUM 1.9 1.5 - 2.5 mg/dL INTERFACE SYSTEM 06/06/2005 11:3 0 PM WASH AND GREASER Patric Thomas MD CHEMISTRY ORDERABLES Freya l Result Performing Organization Address [facility] Phone Number INTERFACE SYSTEM Refer to clinic/hospital department * (ABNORMAL) CBC WITH DIFFERENTIAL (06/06/2005 11:30 PM WASH AND GREASER) NEUTROPHILS 83(H) 45 - 70 % INTERFAC E SYSTEM LYMPHOCYTES 11(L) 16 - 45 % INTERFAC E SYSTEM MONOCYTES 7 3 - 13 % INTERFACE SYSTEM EOSINOPHILS 0 0 - 7 % INTERFAC E SYSTEM BASOPHILS 0 0 - 2 % INTERFACE SYSTEM NEUTROPHIL ABSOLUTE 11.96(H) 1.90 - 7.00 K/uL INTERFACE SYSTEM LYMPHOCYTE ABSOLUTE 1.56 0.70 - 4.50 K/uL INTERFACE SYSTEM MONOCYTE ABSOLUTE 0.96 0.10 - 1.30 K/uL INTERFACE SYSTEM EOSINOPHIL ABSOLUTE 0.00 0.00 - 0.70 K/uL INTERFACE SYSTEM BASOPHILS ABSOLUTE 0.02 0.00 - 0.20 K/uL INTERFACE SYSTEM 06/06/2005 11:3 0 PM WASH AND GREASER Patric Thomas MD HEMATOLOGY ORDERABLES Fin al Result Performing Organization Address [facility] Phone Number INTERFACE SYSTEM Refer to clinic/hospital department * (ABNORMAL) CBC WITH DIFFERENTIAL (06/06/2005 11:30 PM WASH AND GREASER) WBC 14.5(H) 4.0 - 9.8 K/uL INTERFACE SYSTEM RBC 4.69 4.50 - 5.40 M/uL INTERFACE SYSTEM HEMOGLOBIN 14.1 13.6 - 16.5 g/dL INTERFACE SYSTEM HEMATOCRIT 39.3(L) 40.0 - 48.0 % INTERFACE SYSTEM MCV 83.8 82.0 - 99.0 fL INTERFACE SYSTEM MCH 30.1 27.2 - 32.6 pg INTERFACE SYSTEM MCHC 35.9(H) 31.5 - 35.5 % INTERFACE SYSTEM RDW 12.3 11.5 - 14.5 % INTERFACE SYSTEM RDW-STDEV 37.1 37.1 - 48.7 fL INTERFACE SYSTEM PLATELETS 210 140 - 350 K/uL INTERFACE SYSTEM MPV 9.6 9.3 - 12.4 fL INTERFACE SYSTEM 06/06/2005 11:3 0 PM WASH AND GREASER Patric Thomas MD HEMATOLOGY ORDERABLES Fin al Result INTERFACE SYSTEM Refer to clinic/hospital department * LIPID PANEL (06/06/2005 11:30 PM WASH AND GREASER) Pathologist [facility] LIPID PANEL COMMENT See below INTERFACE SYSTEM Comment: Adult ATP III Classifications: Cholesterol (mg/dL) Triglyceride (mg/dL) Desirable <200 Normal <150 Borderline 200 - 239 Borderline High 150 - 199 High >=240 High 200 - 499 Very High >=500 HDL Cholesterol (mg/dL) LDL (mg/dL) Low (increased risk) <40 Optimal <100 High (reduced risk) >=60 Near or above optimal 100 - 129 Borderline 130 - 159 High 160 - 189 Very High >=190 LDL calculation is not accurate if Triglycerides are greater than 400 mg /dL Pediatric NCEP Classifications: Cholesterol(<20 years),(mg/dL) Triglyceride Desirable <170 Pediatric classification Borderline 170 - 199 not defined. High >=200 HDL (<5 years) LDL (mg/dL) No Reference Range Established Desirable <110 Borderline 110 - 129 High >=130 CHOLESTEROL 185 100 - 199 mg/dL INTERFACE SYSTEM TRIGLYCERIDE 139 10 - 149 mg/dL INTERFACE SYSTEM HDL 58 40 - 59 mg/dL INTERFACE SYSTEM LDL CALCULATED 99 <=99 mg/dL INTERFACE SYSTEM CHOL/HDL RATIO 3.2 2.0 - 5.0 INTER FACE SYSTEM Comment:See interpretive johann a section for risk classifications. 06/06/2005 11:3 0 PM WASH AND GREASER us Carmina Dick MD CHEMISTRY ORDERABLES Final Resul t Performing Organization Address [facility] Phone Number INTERFACE SYSTEM Refer to clinic/hospital department * (ABNORMAL) COMPREHENSIVE METABOLIC PANEL (06/06/2005 11:30 PM WASH AND GREASER) GLUCOSE 225(H) 65 - 109 mg/dL INTERFACE SYSTEM CREATININE 0.5 0.5 - 1.3 mg/dL INTERFACE SYSTEM CALCIUM 8.4(L) 8.6 - 10.2 mg/dL INTERFACE SYSTEM AST 237(H) 12 - 38 U/L INTERFACE SYSTEM ALKALINE PHOSPHATASE 66 40 - 129 U/L INTERFACE SYSTEM BILIRUBIN TOTAL 1.1(H) 0.2 - 1.0 mg/dL INTERFACE SYSTEM ALBUMIN 3.9 3.4 - 4.8 g/dL INTERFACE SYSTEM TOTAL PROTEIN 6.1(L) 6.3 - 8.6 g/dL INTERFACE SYSTEM ALT 46(H) 0 - 41 U/L INTERFACE SYSTEM BUN 14 6 - 20 mg/dL INTERFACE SYSTEM SODIUM 135 135 - 145 mmol/L INTERFACE SYSTEM POTASSIUM 3.7 3.5 - 4.9 mmol/L INTERFACE SYSTEM CHLORIDE 101 96 - 108 mmol/L INTERFACE SYSTEM CO2 24 22 - 30 mmol/L INTERFACE SYSTEM 06/06/2005 11:3 0 PM WASH AND GREASER us Carmina Dick MD CHEMISTRY ORDERABLES Final Resul t Performing Organization Address [facility] de Phone Number INTERFACE SYSTEM Refer to clinic/hospital department * (ABNORMAL) POC GLUCOSE (06/06/2005 8:43 PM WASH AND GREASER) GLUCOSE POC 247(H) 65 - 109 mg/dL INTERFACE SYSTEM 06/06/2005 8:43 PM WASH AND GREASER us Patric Thomas MD POINT OF CARE TESTING Ceferino al Result INTERFACE SYSTEM Refer to clinic/hospital department documented in this encounter Visit Diagnoses Diagnosis Acute myocardial infarction of other anterior wall, initial episode of care ([facility])- Primary Acute myocardial infarction of other anterior wall, initial episode of care documented in this encounter
--- OUTSIDE RECORDS SUMMARY | 2024-08-27 09:35 | XMS_ITS | Encounter Summary ---
Author Organization [facility] Address [address] [place] [address] Care Team Providers Care Canvas Marker Name Role Phone Unavailable Primary Care Provider Unavailabl e Encounter Details Date Type Department Care Team (Late st Contact Info) Description 09/06/2006 Outpatient Historical [facility] at [facility] 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
--- OUTSIDE RECORDS SUMMARY | 2024-08-27 09:35 | XMS_ITS | Clinical Summary ---
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
--- OUTSIDE RECORDS SUMMARY | 2024-08-27 09:35 | XMS_ITS | Encounter Summary ---
Author Organization [employer] Address [address] [place] [address] Care Team Providers Care Dining Room Manager Name Role Phone Unavailable Primary Care Provider Unavailabl e Encounter Details Date Type Department Care Team (Late st Contact Info) Description 09/10/2006 Outpatient Historical [facility] Support Serv. (Adt Cardiology-[facility]) [address] 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
--- OUTSIDE RECORDS SUMMARY | 2024-08-27 09:35 | XMS_ITS | Encounter Summary ---
Author Organization [facility] Address [address] [facility] [place] [address] Care Team Providers Care Structural Engineer Name Role Phone Ashwin Lawler MD Primary Care Provider [phone] Encounter Details Date Type Department Care Team (Late st Contact Info) Description 06/04/2019 Telephone [facility] [address] [place] [address] Jonnathan Schafer MD [facility] [address] Social History Tobacco Use Types Packs/Day Years Used Date Smoking Tobacco: Never Smokeless Tobacco: Never Alcohol Use Standard Drinks/Week Comments Never 0 (1 standard drink = 0.6 oz pur e alcohol) AUDIT-C Answer Date Recorded Frequency of Alcohol Consumption Never 04/16/2019 Average Number of Drinks Not on file 019 Frequency of Binge Drinking Not on file 03/19 Sex and Gender Information Value Date Recorded Sex Assigned at Not on file 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 Schafer know that he is becoming overwhelmed and frustrated w/ all the appointments and tests. He stated he has cancelled his Neurology appointment and just wants to give everything a break for a while and sees what happens. Patient CallBack number: [phone] H AND TRUING MACHINE OPERATOR documented in this encounter Plan of Treatment Not on file documented as of this encounter Visit Diagnoses Not on filedocumented in this encounter Care Teams Structural Engineer Relationship Specialty Start Date End Date Ashwin Lawler MD PCP - General 09/26/17 documented as of this encounter
--- OUTSIDE RECORDS SUMMARY | 2024-08-27 09:35 | XMS_ITS | Clinical Summary ---
Author Organization [facility] Address [address] [place] [address] Phone Care Team Providers Care Fish Technologist Name Role Phone Unavailable Primary Care Provider Unavailabl e Social History Tobacco Use Types Packs/Day Years Used Date Smoking Tobacco: Never Assessed Sex and Gender Information Value Date Recorded Sex Assigned at Not on file Legal Sex Male 12:21 AM CDT Gender Identity Not on file Sexual Orientation Not on file Plan of Treatment Not on file
--- OUTSIDE RECORDS SUMMARY | 2024-08-27 09:35 | XMS_ITS | Encounter Summary ---
Author Organization [employer] Address [address] [place] [address] Care Team Providers Care Couturiere Name Role Phone Unavailable Primary Care Provider Unavailabl e Encounter Details Date Type Department Care Team (Late st Contact Info) Description 06/06/2005 [place] [facility] [place] [address] 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
--- OUTSIDE RECORDS SUMMARY | 2024-08-27 09:35 | XMS_ITS | Encounter Summary ---
Author Organization [facility] Address [address] [place] [address] Care Team Providers Care Pet Trainer Name Role Phone Unavailable Primary Care Provider Unavailabl e Encounter Details Date Type Department Care Team (Late st Contact Info) Description 09/07/2006 Outpatient Historical [facility] at [facility] [address] [facility] [place] [address] Elena Navarro MD [address] [facility] [address] [place] [address] Social History Tobacco Use Types Packs/Day Years Used Date Smoking Tobacco: Never Assessed Sex and Gender Information Value Date Recorded Sex Assigned at Not on file 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
--- OUTSIDE RECORDS SUMMARY | 2024-08-27 09:35 | XMS_ITS | Encounter Summary ---
Author Organization [facility] Address [address] [place] [address] Care Team Providers Care Pin Puller Name Role Phone Unavailable Primary Care Provider Unavailabl e Encounter Details Date Type Department Care Team (Late st Contact Info) Description 10/12/2006 Outpatient Historical [facility] Cardiovas and Thor Surg at [facility] [address] [facility] [place] [address] Elena Navarro MD [address] [facility] [address] [place] [address] Social History Tobacco Use Types Packs/Day Years Used Date Smoking Tobacco: Never Assessed Sex and Gender Information Value Date Recorded Sex Assigned at Not on file 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
--- OUTSIDE RECORDS SUMMARY | 2024-08-27 09:35 | XMS_ITS | Encounter Summary ---
Author Organization [facility] Address [address] [place] [address] Care Team Providers Care Hand Crown Pouncer Name Role Phone Unavailable Primary Care Provider Unavailabl e Encounter Details Date Type Department Care Team (Latest Contact Info) Description 10/12/2006 Outpatient Historical [facility] Navarro, Elena Baig MD [address] [place] [address] Follow-Up Examination, Following Other Surgery (Primary Dx); Coronary Atherosclerosis of [place] Coronary Artery; Unspecified Pleural Effusion; Pulmonary Collapse Social History Tobacco Use Types Packs/Day Years Used Date Smoking Tobacco: Never Assessed Sex and Gender Information Value Date Recorded Sex Assigned at Not on file Legal 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
--- OUTSIDE RECORDS SUMMARY | 2024-08-27 09:35 | XMS_ITS | Clinical Summary ---
Author Organization [facility] Address [facility] [place] [address] Care Team Providers Care Coupon And Bond Collection Clerk Name Role Phone Unavailable Primary Care Provider Unavailabl e Social History Tobacco Use Types Packs/Day Years Used Date Smoking Tobacco: Never Assessed Sex and Gender Information Value Date Recorded Sex Assigned at Not on file Legal Sex Male 8:23 PM CDT Gender Identity Not on file Sexual Orientation Not on file Plan of Treatment Health Maintenance Due Date Last Done Comments Colorectal Cancer Screening Colonoscopy (10 Years) 1954 Hepatitis C 1972 DTaP, Tdap and Td Vaccines ( 1 - Tdap) 1973 Pneumococcal Vaccine: 50+ Ye ars (1 of 1 - PCV) 2004 Zoster Vaccines (1 of 2) 2004 COVID-19 Vaccine ( - 2023-2 5 season) 2023 RSV Immunization or 60+ Years (1 - 1-dose 75+ series) 2029 Meningococcal B Vaccine Aged Out No l onger eligible based on patient's age to complete this topic Meningococcal Vaccine Aged Out No sweta paulina eligible based on patient's age to complete this topic RSV Immunizations Under 20 Months Aged Out No longer eligible based on patient's age to complete this topic
--- OUTSIDE RECORDS SUMMARY | 2024-08-27 09:35 | XMS_ITS | Encounter Summary ---
Author Organization [employer] Address [address] [place] [address] Care Team Providers Care Conditioner Tender Name Role Phone Unavailable Primary Care Provider Unavailabl e Encounter Details Date Type Department Care Team (Late st Contact Info) Description 06/08/2005 Outpatient Historical [facility] [place] [place] Support Serv. (Adt Cardiology-[facility]) [address] 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
--- OUTSIDE RECORDS SUMMARY | 2024-08-27 09:35 | XMS_ITS | Encounter Summary ---
Author Organization [facility] Address [address] [place] [address] Care Team Providers Care Procedure Manager Name Role Phone Unavailable Primary Care Provider Unavailabl e Encounter Details Date Type Department Care Team (Late st Contact Info) Description 09/07/2006 Outpatient Historical [facility] Cardiovas and Thor Surg at [facility] [address] [facility] [address] [place] [address] Lily Dalton, ALEXANDRO [address] [facility] [address] [place] [address] Social History Tobacco Use Types Packs/Day Years Used Date Smoking Tobacco: Never Assessed Sex and Gender Information Value Date Recorded Sex Assigned at Not on file Legal 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
--- OUTSIDE RECORDS SUMMARY | 2024-08-27 09:35 | XMS_ITS | Encounter Summary ---
Author Organization [employer] Address 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 Elena Navarro MD [facility] [address] [id number] Patric Thomas MD [address] [facility] [address] [facility] [address] [place] [address] Coronary Atherosclerosis of [place] Coronary Artery (Primary Dx) Social History Tobacco Use Types Packs/Day Years Used Date Smoking Tobacco: Never Assessed Sex and Gender Information Value Date Recorded Sex Assigned at Not on file 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 Gender Identity Not on file Sexual Orientation Not on file documented as of this encounter Plan of Treatment Not on file documented as of this encounter Procedures Procedure Name Priority Date/Time Associated Diagnosis Comments POC GLUCOSE Routine 09/10/2006 7:25 AM CDT POC GLUCOSE Routine 09/09/2006 8:34 PM CDT POC GLUCOSE Routine 09/09/2006 4:48 PM CDT POC GLUCOSE Routine 09/09/2006 11:06 AM CDT POC GLUCOSE Routine 09/09/2006 7:38 AM CDT CBC WITH DIFFERENTIAL Routine 09/09/2006 4:40 AM CDT CBC WITH DIFFERENTIAL Routine 09/09/2006 4:40 AM CDT MAGNESIUM LEVEL Routine 09/09/2006 4:40 AM CDT BASIC METABOLIC PANEL Routine 09/09/2006 4:40 AM CDT POC GLUCOSE Routine 09/08/2006 8:21 PM CDT POC GLUCOSE Routine 09/08/2006 4:45 PM CDT POC GLUCOSE Routine 09/08/2006 11:32 AM CDT POC GLUCOSE Routine 09/08/2006 9:35 AM CDT POC GLUCOSE Routine 09/08/2006 6:01 AM CDT CVR ONLY, CKMB/CK Routine 09/08/2006 4:3 0 AM CDT PT AND APTT Routine 09/08/2006 4:30 AM CDT CBC WITH DIFFERENTIAL Routine 09/08/2006 4:30 AM CDT CBC WITH DIFFERENTIAL Routine 09/08/2006 4:30 AM CDT POC GLUCOSE Routine 09/08/2006 4:30 AM CDT COMPREHENSIVE METABOLIC PANEL Routine 09/08/2006 4:30 AM CDT POC GLUCOSE Routine 09/07/2006 11:35 PM CDT POC GLUCOSE Routine 09/07/2006 10:18 PM CDT POTASSIUM LEVEL Routine 09/07/2006 10:00 PM CDT MAGNESIUM LEVEL Routine 09/07/2006 10:00 PM CDT CVR ONLY, CKMB/CK Routine 09/07/2006 8:4 5 PM CDT POC GLUCOSE Routine 09/07/2006 8:44 PM CDT POC GLUCOSE Routine 09/07/2006 6:23 PM CDT POC GLUCOSE Routine 09/07/2006 4:48 PM CDT POC GLUCOSE Routine 09/07/2006 3:51 PM CDT POTASSIUM LEVEL Routine 09/07/2006 3:45 PM CDT POC GLUCOSE Routine 09/07/2006 2:45 PM CDT POC GLUCOSE Routine 09/07/2006 1:17 PM CDT POC, BLOOD GASES Routine 09/07/2006 10:2 7 AM CDT CVR ONLY, CKMB/CK Routine 09/07/2006 10: 00 AM CDT PT AND APTT Routine 09/07/2006 10:00 AM CDT CBC WITH DIFFERENTIAL Routine 09/07/2006 10:00 AM CDT CBC WITH DIFFERENTIAL Routine 09/07/2006 10:00 AM CDT MAGNESIUM LEVEL Routine 09/07/2006 10:00 AM CDT BASIC METABOLIC PANEL Routine 09/07/2006 10:00 AM CDT POC, BLOOD GASES Routine 09/07/2006 9:11 AM CDT POC, BLOOD GASES Routine 09/07/2006 8:41 AM CDT POC, BLOOD GASES Routine 09/07/2006 7:37 AM CDT POC GLUCOSE Routine 09/07/2006 5:15 AM CDT POC GLUCOSE Routine 09/06/2006 9:43 PM CDT URINALYSIS WITH REFLEX CULTURE Routine 09/06/2006 4:24 PM CDT URINALYSIS W/REFLEX MICROSCOPIC Routine 09/06/2006 4:24 PM CDT POC GLUCOSE Routine 09/06/2006 2:22 PM CDT POC ACTIVATED CLOTTING TIME Routine 09/06/2006 1:28 PM CDT POC ACTIVATED CLOTTING TIME Routine 09/06/2006 10:13 AM CDT POC ACTIVATED CLOTTING TIME Routine 09/06/2006 10:13 AM CDT POC GLUCOSE Routine 09/06/2006 7:44 AM CDT documented in this encounter Results * (ABNORMAL) POC GLUCOSE (09/10/2006 7:25 AM CDT) GLUCOSE POC 141(H) 65 - 99 mg/dL INTERFACE SYSTEM 09/10/2006 7:25 AM CDT Patric Thomas MD POINT OF CARE TESTING Javier jadiel Performing Organization Address City/[facility] Co de Phone Number INTERFACE SYSTEM Refer to clinic/hospital department * (ABNORMAL) POC GLUCOSE (09/09/2006 8:34 PM CDT) GLUCOSE POC 127(H) 65 - 99 mg/dL INTERFACE SYSTEM 09/09/2006 8:34 PM CDT Patric Thomas MD POINT OF CARE TESTING Javier jadiel INTERFACE SYSTEM Refer to clinic/hospital department * (ABNORMAL) POC GLUCOSE (09/09/2006 4:48 PM CDT) COMMENT, GLU POC Notified RN INTERFACE SYSTEM GLUCOSE POC 166(H) 65 - 99 mg/dL INTERFACE SYSTEM 09/09/2006 4:48 PM CDT Patric Thomas MD POINT OF CARE TESTING Javier jadiel Performing Organization Address [facility] Phone Number INTERFACE SYSTEM Refer to clinic/hospital department * (ABNORMAL) POC GLUCOSE (09/09/2006 11:06 AM CDT) GLUCOSE POC 226(H) 65 - 99 mg/dL INTERFACE SYSTEM 09/09/2006 11:0 6 AM CDT Patric Thomas MD POINT OF CARE TESTING Javier jadiel Performing Organization Address [facility] Phone Number INTERFACE SYSTEM Refer to clinic/hospital department * (ABNORMAL) POC GLUCOSE (09/09/2006 7:38 AM CDT) GLUCOSE POC 169(H) 65 - 99 mg/dL INTERFACE SYSTEM 09/09/2006 7:38 AM CDT Patric Thomas MD POINT OF CARE TESTING Javier jadiel Performing Organization Address [facility] Phone Number INTERFACE SYSTEM Refer to clinic/hospital department * (ABNORMAL) CBC WITH DIFFERENTIAL (09/09/2006 4:40 AM CDT) NEUTROPHILS 73(H) 45 - 70 % INTERFAC E SYSTEM LYMPHOCYTES 14(L) 16 - 45 % INTERFAC E SYSTEM MONOCYTES 12 3 - 13 % INTERFACE SYSTEM EOSINOPHILS 1 0 - 7 % INTERFAC E SYSTEM BASOPHILS 0 0 - 2 % INTERFACE SYSTEM NEUTROPHIL ABSOLUTE 7.29(H) 1.90 - 7.00 K/uL INTERFACE SYSTEM LYMPHOCYTE ABSOLUTE 1.39 0.70 - 4.50 K/uL INTERFACE SYSTEM MONOCYTE ABSOLUTE 1.16 0.10 - 1.30 K/uL INTERFACE SYSTEM EOSINOPHIL ABSOLUTE 0.07 0.00 - 0.70 K/uL INTERFACE SYSTEM BASOPHILS ABSOLUTE 0.02 0.00 - 0.20 K/uL INTERFACE SYSTEM 09/09/2006 4:40 AM CDT [facility] HEMATOLOGY ORDERABLES Edited Performing Organization Address [facility] Phone Number INTERFACE SYSTEM Refer to clinic/hospital department * (ABNORMAL) CBC WITH DIFFERENTIAL (09/09/2006 4:40 AM CDT) WBC 9.9(H) 4.0 - 9.8 K/uL INTERFACE SYSTEM RBC 4.13(L) 4.50 - 5.40 M/uL INTERFACE SYSTEM HEMOGLOBIN 12.2(L) 13.6 - 16.5 g/dL INTERFACE SYSTEM HEMATOCRIT 35.4(L) 40.0 - 48.0 % INTERFACE SYSTEM MCV 85.7 82.0 - 99.0 fL INTERFACE SYSTEM MCH 29.5 27.2 - 32.6 pg INTERFACE SYSTEM MCHC 34.5 31.5 - 35.5 % INTERFACE SYSTEM RDW 12.5 11.5 - 14.5 % INTERFACE SYSTEM RDW-STDEV 38.9 37.1 - 48.7 fL INTERFACE SYSTEM PLATELETS 137(L) 140 - 350 K/uL INTERFACE SYSTEM MPV 10.0 9.3 - 12.4 fL INTERFACE SYSTEM 09/09/2006 4:40 AM CDT [facility] HEMATOLOGY ORDERABLES Edited Performing Organization Address [facility] Phone Number INTERFACE SYSTEM Refer to clinic/hospital department * MAGNESIUM LEVEL (09/09/2006 4:40 AM CDT) MAGNESIUM 2.5 1.5 - 2.5 mg/dL INTERFACE SYSTEM 09/09/2006 4:40 AM CDT Patric Thomas MD CHEMISTRY ORDERABLES Edit ed Performing Organization Address [facility] Phone Number INTERFACE SYSTEM Refer to clinic/hospital department * (ABNORMAL) BASIC METABOLIC PANEL (09/09/2006 4:40 AM CDT) GLUCOSE 125(H) 65 - 99 mg/dL INTERFACE SYSTEM CREATININE 0.74 0.67 - 1.17 mg/dL INTERFACE SYSTEM CALCIUM 7.9(L) 8.4 - 10.2 mg/dL INTERFACE SYSTEM BUN 19 6 - 20 mg/dL INTERFACE SYSTEM SODIUM 136 135 - 145 mmol/L INTERFACE SYSTEM POTASSIUM 4.2 3.5 - 4.9 mmol/L INTERFACE SYSTEM CHLORIDE 100 96 - 108 mmol/L INTERFACE SYSTEM CO2 30 22 - 30 mmol/L INTERFACE SYSTEM GFR, >60 >=60 mL/min/1. 7 sq meter INTERFACE SYSTEM GFR >60 >=60 mL/min/1. 7 sq meter INTERFACE SYSTEM Comment: Estimated GFR rate interpretative information for both Americans and non- Americans is available on the [facility] Intranet at: [email or web address] Select: Lab Policies and Procedures Select: Reference Ranges - GFR 09/09/2006 4:40 AM CDT us [facility] CHEMISTRY ORDERABLES Edited Performing Organization Address [facility] de Phone Number INTERFACE SYSTEM Refer to clinic/hospital department * (ABNORMAL) POC GLUCOSE (09/08/2006 8:21 PM CDT) GLUCOSE POC 245(H) 65 - 99 mg/dL INTERFACE SYSTEM 09/08/2006 8:21 PM CDT Patric Thomas MD POINT OF CARE TESTING Javieradair duvall Performing Organization Address [facility] de Phone Number INTERFACE SYSTEM Refer to clinic/hospital department * (ABNORMAL) POC GLUCOSE (09/08/2006 4:45 PM CDT) GLUCOSE POC 190(H) 65 - 99 mg/dL INTERFACE SYSTEM 09/08/2006 4:45 PM CDT Patric Thomas MD POINT OF CARE TESTING Javier jadiel Performing Organization Address [facility] de Phone Number INTERFACE SYSTEM Refer to clinic/hospital department * (ABNORMAL) POC GLUCOSE (09/08/2006 11:32 AM CDT) GLUCOSE POC 140(H) 65 - 99 mg/dL INTERFACE SYSTEM 09/08/2006 11:3 2 AM CDT Patric Thomas MD POINT OF CARE TESTING Javier jadiel Performing Organization Address [facility] Phone Number INTERFACE SYSTEM Refer to clinic/hospital department * (ABNORMAL) POC GLUCOSE (09/08/2006 9:35 AM CDT) GLUCOSE POC 119(H) 65 - 99 mg/dL INTERFACE SYSTEM 09/08/2006 9:35 AM CDT Patric Thomas MD POINT OF CARE TESTING Javier jadiel Performing Organization Address [facility] Phone Number INTERFACE SYSTEM Refer to clinic/hospital department * (ABNORMAL) POC GLUCOSE (09/08/2006 6:01 AM CDT) GLUCOSE POC 134(H) 65 - 99 mg/dL INTERFACE SYSTEM 09/08/2006 6:01 AM CDT Patric Thomas MD POINT OF CARE TESTING Javier jadiel Performing Organization Address [facility] Phone Number INTERFACE SYSTEM Refer to clinic/hospital department * (ABNORMAL) POC GLUCOSE (09/08/2006 4:30 AM CDT) GLUCOSE POC 129(H) 65 - 99 mg/dL INTERFACE SYSTEM 09/08/2006 4:30 AM CDT Patric Thomas MD POINT OF CARE TESTING Javier jadiel Performing Organization Address [facility] Phone Number INTERFACE SYSTEM Refer to clinic/hospital department * (ABNORMAL) CBC WITH DIFFERENTIAL (09/08/2006 4:30 AM CDT) NEUTROPHILS 82(H) 45 - 70 % INTERFAC E SYSTEM LYMPHOCYTES 8(L) 16 - 45 % INTERFAC E SYSTEM MONOCYTES 11 3 - 13 % INTERFACE SYSTEM EOSINOPHILS 0 0 - 7 % INTERFAC E SYSTEM BASOPHILS 0 0 - 2 % INTERFACE SYSTEM NEUTROPHIL ABSOLUTE 11.21(H) 1.90 - 7.00 K/uL INTERFACE SYSTEM LYMPHOCYTE ABSOLUTE 1.03 0.70 - 4.50 K/uL INTERFACE SYSTEM MONOCYTE ABSOLUTE 1.45(H) 0.10 - 1.30 K/uL INTERFACE SYSTEM EOSINOPHIL ABSOLUTE 0.00 0.00 - 0.70 K/uL INTERFACE SYSTEM BASOPHILS ABSOLUTE 0.01 0.00 - 0.20 K/uL INTERFACE SYSTEM 09/08/2006 4:30 AM CDT Elena Navarro MD HEMATOLOGY ORDERABLES Edit ed Performing Organization Address [facility] de Phone Number INTERFACE SYSTEM Refer to clinic/hospital department * (ABNORMAL) CBC WITH DIFFERENTIAL (09/08/2006 4:30 AM CDT) WBC 13.7(H) 4.0 - 9.8 K/uL INTERFACE SYSTEM RBC 4.69 4.50 - 5.40 M/uL INTERFACE SYSTEM HEMOGLOBIN 14.0 13.6 - 16.5 g/dL INTERFACE SYSTEM HEMATOCRIT 39.3(L) 40.0 - 48.0 % INTERFACE SYSTEM MCV 83.8 82.0 - 99.0 fL INTERFACE SYSTEM MCH 29.9 27.2 - 32.6 pg INTERFACE SYSTEM MCHC 35.6(H) 31.5 - 35.5 % INTERFACE SYSTEM RDW 12.6 11.5 - 14.5 % INTERFACE SYSTEM RDW-STDEV 37.9 37.1 - 48.7 fL INTERFACE SYSTEM PLATELETS 150 140 - 350 K/uL INTERFACE SYSTEM MPV 10.2 9.3 - 12.4 fL INTERFACE SYSTEM 09/08/2006 4:30 AM CDT Elena Navarro MD HEMATOLOGY ORDERABLES Edit ed Performing Organization Address [facility] de Phone Number INTERFACE SYSTEM Refer to clinic/hospital department * (ABNORMAL) PT AND APTT (09/08/2006 4:30 AM CDT) PROTIME 15.8(H) 12.7 - 15.1 Seconds INTERFACE SYSTEM INR 1.2(H) 0.9 - 1.1 INTERFACE SYSTEM Comment: INR Therapeutic Range: Adult: 2.0 - 3.0 for pulmonary embolism or prophylaxis against venous thrombosis or systemic embolization. 2.0 - 3.0 for patients with tissue heart valves. 2.5 - 3.5 for patients with mechanical heart valves or post [place]. Pediatric (12 years and under): 1.5 - 3.0 Although the target range in children is not well established , INR values of 1.5 - 3.0 are recommended for most patients. Higher values have been used in children with prosthetic cardiac valves and hereditary clotting disorders. (<3 days) therapeutic ranges have not been established. PTT 26.0 24.4 - 36.4 Seconds INTERFACE SYSTEM Comment: PTT Therapeutic Range: Heparin Level PTT (seconds) <0.10 units/mL <53 0.10 - 0.30 units/mL 53 - 67 0.30 - 0.70 units/mL* 67 - 95* 0.70 - 1.00 units/mL 95 - 116 *corresponds to therapeutic range for unfractionated heparin 09/08/2006 4:30 AM CDT Elena Navarro MD HEMATOLOGY ORDERABLES Edit ed INTERFACE SYSTEM Refer to clinic/hospital department * (ABNORMAL) COMPREHENSIVE METABOLIC PANEL (09/08/2006 4:30 AM CDT) GLUCOSE 127(H) 65 - 99 mg/dL INTERFACE SYSTEM CREATININE 0.56(L) 0.67 - 1.17 mg/dL INTERFACE SYSTEM CALCIUM 7.7(L) 8.4 - 10.2 mg/dL INTERFACE SYSTEM ALKALINE PHOSPHATASE 49 40 - 129 U/L INTERFACE SYSTEM AST 32 12 - 38 U/L INTERFACE SYSTEM ALT 25 0 - 41 U/L INTERFACE SYSTEM TOTAL PROTEIN 5.9(L) 6.3 - 8.6 g/dL INTERFACE SYSTEM ALBUMIN 3.5 3.4 - 4.8 g/dL INTERFACE SYSTEM BILIRUBIN TOTAL 1.3(H) 0.2 - 1.0 mg/dL INTERFACE SYSTEM BUN 12 6 - 20 mg/dL INTERFACE SYSTEM SODIUM 136 135 - 145 mmol/L INTERFACE SYSTEM POTASSIUM 4.2 3.5 - 4.9 mmol/L INTERFACE SYSTEM CHLORIDE 104 96 - 108 mmol/L INTERFACE SYSTEM CO2 26 22 - 30 mmol/L INTERFACE SYSTEM GFR, >60 >=60 mL/min/1. 7 sq meter INTERFACE SYSTEM GFR >60 >=60 mL/min/1. 7 sq meter INTERFACE SYSTEM Comment: Estimated GFR rate interpretative information for both Americans and non- Americans is available on the [facility] Intranet at: [email or web address] Select: Lab Policies and Procedures Select: Reference Ranges - GFR 09/08/2006 4:30 AM CDT Elena Navarro MD CHEMISTRY ORDERABLES Edite d Performing Organization Address [facility] de Phone Number INTERFACE SYSTEM Refer to clinic/hospital department * (ABNORMAL) CVR ONLY, CKMB/CK (09/08/2006 4:30 AM CDT) CKMB 3.8 <=6.7 ng/mL INTERFACE SYSTEM CKMB INTERP Negative INTERFAC E SYSTEM CK 232(H) 10 - 170 U/L INTERFACE SYSTEM CARDIAC RELATIVE INDEX 1.6 <=4.0 INTERFACE SYSTEM 09/08/2006 4:30 AM CDT Elena Navarro MD CHEMISTRY ORDERABLES Edite d Performing Organization Address [facility] de Phone Number INTERFACE SYSTEM Refer to clinic/hospital department * (ABNORMAL) POC GLUCOSE (09/07/2006 11:35 PM CDT) GLUCOSE POC 135(H) 65 - 99 mg/dL INTERFACE SYSTEM 09/07/2006 11:3 5 PM CDT Patric Thomas MD POINT OF CARE TESTING Javier jadiel Performing Organization Address [facility] de Phone Number INTERFACE SYSTEM Refer to clinic/hospital department * (ABNORMAL) POC GLUCOSE (09/07/2006 10:18 PM CDT) GLUCOSE POC 130(H) 65 - 99 mg/dL INTERFACE SYSTEM 09/07/2006 10:1 8 PM CDT Patric Thomas MD POINT OF CARE TESTING Javier jadiel Performing Organization Address [place]/[facility] Phone Number INTERFACE SYSTEM Refer to clinic/hospital department * MAGNESIUM LEVEL (09/07/2006 10:00 PM CDT) MAGNESIUM 2.1 1.5 - 2.5 mg/dL INTERFACE SYSTEM 09/07/2006 10:0 0 PM CDT [facility] CHEMISTRY ORDERABLES Edited Performing Organization Address [facility] Phone Number INTERFACE SYSTEM Refer to clinic/hospital department * POTASSIUM LEVEL (09/07/2006 10:00 PM CDT) POTASSIUM 4.0 3.5 - 4.9 mmol/L INTERFACE SYSTEM 09/07/2006 10:0 0 PM CDT us [facility] CHEMISTRY ORDERABLES Edited Performing Organization Address [facility] Phone Number INTERFACE SYSTEM Refer to clinic/hospital department * (ABNORMAL) CVR ONLY, CKMB/CK (09/07/2006 8:45 PM CDT) CKMB 5.2 <=6.7 ng/mL INTERFACE SYSTEM CKMB INTERP Negative INTERFAC E SYSTEM CK 260(H) 10 - 170 U/L INTERFACE SYSTEM CARDIAC RELATIVE INDEX 2.0 <=4.0 INTERFACE SYSTEM 09/07/2006 8:45 PM CDT Elena Navarro MD CHEMISTRY ORDERABLES Edite d Performing Organization Address [facility] Phone Number INTERFACE SYSTEM Refer to clinic/hospital department * POC GLUCOSE (09/07/2006 8:44 PM CDT) GLUCOSE POC 94 65 - 99 mg/dL INTERFACE SYSTEM 09/07/2006 8:44 PM CDT Patric Thomas MD POINT OF CARE TESTING Javier jadiel Performing Organization Address [facility] Phone Number INTERFACE SYSTEM Refer to clinic/hospital department * (ABNORMAL) POC GLUCOSE (09/07/2006 6:23 PM CDT) GLUCOSE POC 152(H) 65 - 99 mg/dL INTERFACE SYSTEM 09/07/2006 6:23 PM CDT Patric Thomas MD POINT OF CARE TESTING Javier jadiel Performing Organization Address [facility] Phone Number INTERFACE SYSTEM Refer to clinic/hospital department * (ABNORMAL) POC GLUCOSE (09/07/2006 4:48 PM CDT) GLUCOSE POC 191(H) 65 - 99 mg/dL INTERFACE SYSTEM 09/07/2006 4:48 PM CDT Patric Thomas MD POINT OF CARE TESTING Javier jadiel Performing Organization Address [facility] Phone Number INTERFACE SYSTEM Refer to clinic/hospital department * (ABNORMAL) POC GLUCOSE (09/07/2006 3:51 PM CDT) GLUCOSE POC 189(H) 65 - 99 mg/dL INTERFACE SYSTEM 09/07/2006 3:51 PM CDT Patric Thomas MD POINT OF CARE TESTING Javier jadiel Performing Organization Address City/[facility] Phone Number INTERFACE SYSTEM Refer to clinic/hospital department * POTASSIUM LEVEL (09/07/2006 3:45 PM CDT) POTASSIUM 4.1 3.5 - 4.9 mmol/L INTERFACE SYSTEM 09/07/2006 3:45 PM CDT us Elean Navarro MD CHEMISTRY ORDERABLES Edite d Performing Organization Address [facility] de Phone Number INTERFACE SYSTEM Refer to clinic/hospital department * (ABNORMAL) POC GLUCOSE (09/07/2006 2:45 PM CDT) GLUCOSE POC 226(H) 65 - 99 mg/dL INTERFACE SYSTEM 09/07/2006 2:45 PM CDT us Patric Thomas MD POINT OF CARE TESTING Javier jadiel Performing Organization Address [facility] de Phone Number INTERFACE SYSTEM Refer to clinic/hospital department * (ABNORMAL) POC GLUCOSE (09/07/2006 1:17 PM CDT) GLUCOSE POC 238(H) 65 - 99 mg/dL INTERFACE SYSTEM 09/07/2006 1:17 PM CDT us Patric Thomas MD POINT OF CARE TESTING Javier jadiel Performing Organization Address [facility] de Phone Number INTERFACE SYSTEM Refer to clinic/hospital department * (ABNORMAL) POC RT, BLOOD GASES (09/07/2006 10:27 AM CDT) PH ARTERIAL 7.38 7.35 - 7.45 INTERFACE SYSTEM PCO2 ARTERIAL 46 35 - 48 mm Hg INTERFACE SYSTEM PO2 ARTERIAL 168(H) 83 - 108 mm Hg INTERFACE SYSTEM O2 SAT EST ABG POC 99 95 - 99 % INTERFACE SYSTEM PATIENT'S TEMPERATURE 37.0 Degree C INTERFACE SYSTEM BASE EXCESS ABG 1.6 -2.0 - 3.0 mmol/L INTERFACE SYSTEM HCO3 ARTERIAL 27(H) 22 - 26 mmol/L INTERFACE SYSTEM SODIUM POC 132(L) 135 - 145 mmol/L INTERFACE SYSTEM POTASSIUM POC 3.9 3.5 - 4.9 mmol/L INTERFACE SYSTEM CALICUM IONIZED, WHOLE BLOOD 4.49(L) 4.76 - 5.16 mg/dL INTERFACE SYSTEM HEMATOCRIT POC 35.0(L) 40.0 - 48.0 % INTERFACE SYSTEM FIO2 60 INTERFACE SYSTEM OXYGEN MODE SIMV/PS 8 INTERFAC E SYSTEM PEEP POC 5 INTERFACE SYSTEM COMMENT, GASES POC RN NOTIFIED INTERFACE SYSTEM 09/07/2006 10:2 7 AM CDT Patric Thomas MD CHEMISTRY ORDERABLES Edit ed Performing Organization Address [facility] de Phone Number INTERFACE SYSTEM Refer to clinic/hospital department * CVR ONLY, CKMB/CK (09/07/2006 10:00 AM CDT) CKMB 5.2 <=6.7 ng/mL INTERFACE SYSTEM CKMB INTERP Negative INTERFAC E SYSTEM CK 87 10 - 170 U/L INTERFACE SYSTEM CARDIAC RELATIVE INDEX N/A <=4.0 INTERFACE SYSTEM RESULT COMMENT, CHEMISTRY INTERFACE SYSTEM Comment: found in 2009 rack 09/07/2006 10:0 0 AM CDT Elena Navarro MD CHEMISTRY ORDERABLES Edite d Performing Organization Address [facility] de Phone Number INTERFACE SYSTEM Refer to clinic/hospital department * (ABNORMAL) CBC WITH DIFFERENTIAL (09/07/2006 10:00 AM CDT) NEUTROPHILS 82(H) 45 - 70 % INTERFAC E SYSTEM LYMPHOCYTES 11(L) 16 - 45 % INTERFAC E SYSTEM MONOCYTES 7 3 - 13 % INTERFACE SYSTEM EOSINOPHILS 0 0 - 7 % INTERFAC E SYSTEM BASOPHILS 0 0 - 2 % INTERFACE SYSTEM NEUTROPHIL ABSOLUTE 8.55(H) 1.90 - 7.00 K/uL INTERFACE SYSTEM LYMPHOCYTE ABSOLUTE 1.10 0.70 - 4.50 K/uL INTERFACE SYSTEM MONOCYTE ABSOLUTE 0.77 0.10 - 1.30 K/uL INTERFACE SYSTEM EOSINOPHIL ABSOLUTE 0.04 0.00 - 0.70 K/uL INTERFACE SYSTEM BASOPHILS ABSOLUTE 0.01 0.00 - 0.20 K/uL INTERFACE SYSTEM 09/07/2006 10:0 0 AM CDT Elena Navarro MD HEMATOLOGY ORDERABLES Edit ed Performing Organization Address [facility] de Phone Number INTERFACE SYSTEM Refer to clinic/hospital department * (ABNORMAL) CBC WITH DIFFERENTIAL (09/07/2006 10:00 AM CDT) WBC 10.5(H) 4.0 - 9.8 K/uL INTERFACE SYSTEM RBC 4.38(L) 4.50 - 5.40 M/uL INTERFACE SYSTEM HEMOGLOBIN 13.1(L) 13.6 - 16.5 g/dL INTERFACE SYSTEM HEMATOCRIT 36.3(L) 40.0 - 48.0 % INTERFACE SYSTEM MCV 82.9 82.0 - 99.0 fL INTERFACE SYSTEM MCH 29.9 27.2 - 32.6 pg INTERFACE SYSTEM MCHC 36.1(H) 31.5 - 35.5 % INTERFACE SYSTEM RDW 12.1 11.5 - 14.5 % INTERFACE SYSTEM RDW-STDEV 36.3(L) 37.1 - 48.7 fL INTERFACE SYSTEM PLATELETS 162 140 - 350 K/uL INTERFACE SYSTEM MPV 9.8 9.3 - 12.4 fL INTERFACE SYSTEM 09/07/2006 10:0 0 AM CDT Elena Navarro MD HEMATOLOGY ORDERABLES Edit ed INTERFACE SYSTEM Refer to clinic/hospital department * (ABNORMAL) PT AND APTT (09/07/2006 10:00 AM CDT) PROTIME 15.4(H) 12.7 - 15.1 Seconds INTERFACE SYSTEM INR 1.2(H) 0.9 - 1.1 INTERFACE SYSTEM Comment: INR Therapeutic Range: Adult: 2.0 - 3.0 for pulmonary embolism or prophylaxis against venous thrombosis or systemic embolization. 2.0 - 3.0 for patients with tissue heart valves. 2.5 - 3.5 for patients with mechanical heart valves or post [place]. Pediatric (12 years and under): 1.5 - 3.0 Although the target range in children is not well established , INR values of 1.5 - 3.0 are recommended for most patients. Higher values have been used in children with prosthetic cardiac valves and hereditary clotting disorders. (<3 days) therapeutic ranges have not been established. PTT 28.6 24.4 - 36.4 Seconds INTERFACE SYSTEM Comment: PTT Therapeutic Range: Heparin Level PTT (seconds) <0.10 units/mL <53 0.10 - 0.30 units/mL 53 - 67 0.30 - 0.70 units/mL* 67 - 95* 0.70 - 1.00 units/mL 95 - 116 *corresponds to therapeutic range for unfractionated heparin 09/07/2006 10:0 0 AM CDT us Elena Navarro MD HEMATOLOGY ORDERABLES Edit ed Performing Organization Address [facility] de Phone Number INTERFACE SYSTEM Refer to clinic/hospital department * MAGNESIUM LEVEL (09/07/2006 10:00 AM CDT) MAGNESIUM 2.2 1.5 - 2.5 mg/dL INTERFACE SYSTEM 09/07/2006 10:0 0 AM CDT us Elena Navarro MD CHEMISTRY ORDERABLES Edite d Performing Organization Address [facility] Phone Number INTERFACE SYSTEM Refer to clinic/hospital department * (ABNORMAL) BASIC METABOLIC PANEL (09/07/2006 10:00 AM CDT) GLUCOSE 177(H) 65 - 99 mg/dL INTERFACE SYSTEM CREATININE 0.56(L) 0.67 - 1.17 mg/dL INTERFACE SYSTEM CALCIUM 7.7(L) 8.4 - 10.2 mg/dL INTERFACE SYSTEM BUN 11 6 - 20 mg/dL INTERFACE SYSTEM SODIUM 135 135 - 145 mmol/L INTERFACE SYSTEM POTASSIUM 4.1 3.5 - 4.9 mmol/L INTERFACE SYSTEM CHLORIDE 103 96 - 108 mmol/L INTERFACE SYSTEM CO2 28 22 - 30 mmol/L INTERFACE SYSTEM GFR, >60 >=60 mL/min/1. 7 sq meter INTERFACE SYSTEM GFR >60 >=60 mL/min/1. 7 sq meter INTERFACE SYSTEM Comment: Estimated GFR rate interpretative information for both Americans and non- Americans is available on the [facility] Intranet at: [email or web address] Select: Lab Policies and Procedures Select: Reference Ranges - GFR 09/07/2006 10:0 0 AM CDT us Elena Navarro MD CHEMISTRY ORDERABLES Edite d Performing Organization Address [facility] de Phone Number INTERFACE SYSTEM Refer to clinic/hospital department * (ABNORMAL) POC RT, BLOOD GASES (09/07/2006 9:11 AM CDT) PH ARTERIAL 7.41 7.35 - 7.45 INTERF ABDIEL SYSTEM PCO2 ARTERIAL 41 35 - 48 mm Hg INTERFACE SYSTEM PO2 ARTERIAL 350(H) 83 - 108 mm Hg INTERFACE SYSTEM O2 SAT EST ABG POC 100(H) 95 - 99 % INTERFACE SYSTEM PATIENT'S TEMPERATURE 37.0 Degree C INTERFACE SYSTEM BASE EXCESS ABG 1.2 -2.0 - 3.0 mmol/L INTERFACE SYSTEM HCO3 ARTERIAL 26 22 - 26 mmol/L INTERFACE SYSTEM SODIUM POC 130(L) 135 - 145 mmol/L INTERFACE SYSTEM POTASSIUM POC 4.2 3.5 - 4.9 mmol/L INTERFACE SYSTEM CALICUM IONIZED, WHOLE BLOOD 4.49(L) 4.76 - 5.16 mg/dL INTERFACE SYSTEM HEMATOCRIT POC 37.0(L) 40.0 - 48.0 % INTERFACE SYSTEM TCO2, ABG POC 27(H) 19 - 24 mmol/L INTERFACE SYSTEM LACTIC ACID 1.3 0.5 - 2.2 mmol/L INTERFACE SYSTEM GLUCOSE POC 196(H) 65 - 99 mg/dL INTERFACE SYSTEM 09/07/2006 9:11 AM CDT us Patric Thomas MD CHEMISTRY ORDERABLES Edit ed Performing Organization Address [facility] de Phone Number INTERFACE SYSTEM Refer to clinic/hospital department * (ABNORMAL) POC RT, BLOOD GASES (09/07/2006 8:41 AM CDT) PH ARTERIAL 7.42 7.35 - 7.45 INTERF ABDIEL SYSTEM PCO2 ARTERIAL 39 35 - 48 mm Hg INTERFACE SYSTEM PO2 ARTERIAL 412(H) 83 - 108 mm Hg INTERFACE SYSTEM O2 SAT EST ABG POC 100(H) 95 - 99 % INTERFACE SYSTEM PATIENT'S TEMPERATURE 37.0 Degree C INTERFACE SYSTEM BASE EXCESS ABG 0.8 -2.0 - 3.0 mmol/L INTERFACE SYSTEM HCO3 ARTERIAL 25 22 - 26 mmol/L INTERFACE SYSTEM SODIUM POC 129(L) 135 - 145 mmol/L INTERFACE SYSTEM POTASSIUM POC 4.8 3.5 - 4.9 mmol/L INTERFACE SYSTEM CALICUM IONIZED, WHOLE BLOOD 4.53(L) 4.76 - 5.16 mg/dL INTERFACE SYSTEM HEMATOCRIT POC 35.0(L) 40.0 - 48.0 % INTERFACE SYSTEM TCO2, ABG POC 27(H) 19 - 24 mmol/L INTERFACE SYSTEM LACTIC ACID 1.5 0.5 - 2.2 mmol/L INTERFACE SYSTEM GLUCOSE POC 205(H) 65 - 99 mg/dL INTERFACE SYSTEM 09/07/2006 8:41 AM CDT Patric Thomas MD CHEMISTRY ORDERABLES Edit ed Performing Organization Address City/State/[facility] Co de Phone Number INTERFACE SYSTEM Refer to clinic/hospital department * (ABNORMAL) POC RT, BLOOD GASES (09/07/2006 7:37 AM CDT) PH ARTERIAL 7.43 7.35 - 7.45 INTERF ABDIEL SYSTEM PCO2 ARTERIAL 42 35 - 48 mm Hg INTERFACE SYSTEM PO2 ARTERIAL 274(H) 83 - 108 mm Hg INTERFACE SYSTEM O2 SAT EST ABG POC 100(H) 95 - 99 % INTERFACE SYSTEM PATIENT'S TEMPERATURE 37.0 Degree C INTERFACE SYSTEM BASE EXCESS ABG 3.2(H) -2.0 - 3.0 mmol/L INTERFACE SYSTEM HCO3 ARTERIAL 28(H) 22 - 26 mmol/L INTERFACE SYSTEM SODIUM POC 132(L) 135 - 145 mmol/L INTERFACE SYSTEM POTASSIUM POC 4.4 3.5 - 4.9 mmol/L INTERFACE SYSTEM CALICUM IONIZED, WHOLE BLOOD 4.61(L) 4.76 - 5.16 mg/dL INTERFACE SYSTEM HEMATOCRIT POC 38.0(L) 40.0 - 48.0 % INTERFACE SYSTEM TCO2, ABG POC 29(H) 19 - 24 mmol/L INTERFACE SYSTEM LACTIC ACID 0.8 0.5 - 2.2 mmol/L INTERFACE SYSTEM GLUCOSE POC 185(H) 65 - 99 mg/dL INTERFACE SYSTEM 09/07/2006 7:37 AM CDT Patric Thomas MD CHEMISTRY ORDERABLES Edit ed Performing Organization Address City/State/[facility] Co de Phone Number INTERFACE SYSTEM Refer to clinic/hospital department * (ABNORMAL) POC GLUCOSE (09/07/2006 5:15 AM CDT) GLUCOSE POC 211(H) 65 - 99 mg/dL INTERFACE SYSTEM 09/07/2006 5:15 AM CDT Patric Thomas MD POINT OF CARE TESTING Javier jadiel Performing Organization Address [facility] Phone Number INTERFACE SYSTEM Refer to clinic/hospital department * (ABNORMAL) POC GLUCOSE (09/06/2006 9:43 PM CDT) GLUCOSE POC 186(H) 65 - 99 mg/dL INTERFACE SYSTEM 09/06/2006 9:43 PM CDT Patric Thomas MD POINT OF CARE TESTING Javier jadiel Performing Organization Address [facility] Phone Number INTERFACE SYSTEM Refer to clinic/hospital department * (ABNORMAL) URINALYSIS (09/06/2006 4:24 PM CDT) COLOR UA Yellow INTERFACE SYSTEM CLARITY UA Clear Clear INTERFACE SYSTEM SPECIFIC GRAVITY UA 1.060(H) 1.001 - 1.035 INTERFACE SYSTEM Comment: Results confirmed by 2nd methodology. PH UA 5.5 5.0 - 8.0 INTERFACE SYSTEM LEUKOCYTE ESTERASE UA Negative Negative INTERFACE SYSTEM NITRITE UA Negative Negative INTERFACE SYSTEM PROTEIN UA Negative Negative INTERFACE SYSTEM GLUCOSE UA 4+(A) Negative INTERFACE SYSTEM KETONES UA Negative Negative INTERFACE SYSTEM UROBILINOGEN UA <1 <=1 mg/dL INTE RFACE SYSTEM BILIRUBIN UA Negative Negative INTERFA CE SYSTEM BLOOD UA Negative Negative INTERFACE SYSTEM WBC UA <1 0 - 3 /HPF INTERFACE SYSTEM RBC UA <1 0 - 3 /HPF INTERFACE SYSTEM EPITHELIAL CELLS, URINE 0-2 /HPF INTERFACE SYSTEM 09/06/2006 4:24 PM CDT us Patric Thomas MD URINE ORDERABLES Edited Performing Organization Address [facility] Phone Number INTERFACE SYSTEM Refer to clinic/hospital department * URINALYSIS WITH REFLEX CULTURE (09/06/2006 4:24 PM CDT) URINE CULTURE ORDER Not indicated INTERFACE SYSTEM Comment: Criteria for a reflex culture include one or more of the following: Abn ormal nitrite, leukocyte esterase, WBCs or RBCs. Lack of qualifying criteria does not exclude the possiblity of a urinary tract infection. Dilute urine, drug interference, etc. may decrease the sensitivity of the criteria analytes. 09/06/2006 4:24 PM CDT Patric Thomas MD URINE ORDERABLES Edited Performing Organization Address [facility] Phone Number INTERFACE SYSTEM Refer to clinic/hospital department * (ABNORMAL) POC GLUCOSE (09/06/2006 2:22 PM CDT) GLUCOSE POC 174(H) 65 - 99 mg/dL INTERFACE SYSTEM 09/06/2006 2:22 PM CDT Patric Thomas MD POINT OF CARE TESTING Javier jadiel Performing Organization Address [facility] Phone Number INTERFACE SYSTEM Refer to clinic/hospital department * POC ACTIVATED CLOTTING TIME (09/06/2006 1:28 PM CDT) ACT POC 110 Seconds INTERFACE SYSTEM Comment: Note sheath pull range change effective 10/07/2005. ACT value for sheath pull at [facility] has been established to be < or = to 1 40. (See also Nursing Procedures for sheath pull in related nursing areas) 09/06/2006 1:28 PM CDT Patric Thomas MD POINT OF CARE TESTING Jvaier jadiel Performing Organization Address [facility] Phone Number INTERFACE SYSTEM Refer to clinic/hospital department * POC ACTIVATED CLOTTING TIME (09/06/2006 10:13 AM CDT) ACT POC 602 Seconds INTERFACE SYSTEM Comment: Note sheath pull range change effective 10/07/2005. ACT value for sheath pull at [facility] has been established to be < or = to 1 40. (See also Nursing Procedures for sheath pull in related nursing areas) COMMENT, ACT POC Rpt @ no charge INTERFACE SYSTEM 09/06/2006 10:1 3 AM CDT us Patric Thomas MD POINT OF CARE TESTING Javieradair duvall Performing Organization Address [facility] Phone Number INTERFACE SYSTEM Refer to clinic/hospital department * POC ACTIVATED CLOTTING TIME (09/06/2006 10:13 AM CDT) ACT POC 755 Seconds INTERFACE SYSTEM Comment: Note sheath pull range change effective 10/07/2005. ACT value for sheath pull at [facility] has been established to be < or = to 1 40. (See also Nursing Procedures for sheath pull in related nursing areas) 09/06/2006 10:1 3 AM CDT Patric Thomas MD POINT OF CARE TESTING Javier jadiel Performing Organization Address [facility] Phone Number INTERFACE SYSTEM Refer to clinic/hospital department * (ABNORMAL) POC GLUCOSE (09/06/2006 7:44 AM CDT) COMMENT, GLU POC Notified RN INTERFACE SYSTEM GLUCOSE POC 231(H) 65 - 99 mg/dL INTERFACE SYSTEM 09/06/2006 7:44 AM CDT Patric Thomas MD POINT OF CARE TESTING Javier jadiel Performing Organization Address [facility] Phone Number INTERFACE SYSTEM Refer to clinic/hospital department documented in this encounter Visit Diagnoses Diagnosis Coronary atherosclerosis of ramona coronary artery- Primary documented in this encounter
--- OUTSIDE RECORDS SUMMARY | 2024-08-27 09:35 | XMS_ITS | Clinical Summary ---
Author Organization [facility] Address [address] [place] [address] Care Team Providers Care Cooking Show Host Name Role Phone Ashwin Lawler MD Primary Care Provider [phone] Allergies No known active allergies Medications metFORMIN [...] stent 04/05/2023 Coronary artery disease invo lving [place] coronary artery of [place] heart without angina pectoris 08/24/2022 Cardiomyopathy, ischemic 08/24/2022 Surgical History Surgery Date Site/Laterality Comments CORONARY ARTERY BYPASS GRAFT HERNIA REPAIR LAPAROSCOPIC GASTRIC BANDING Medical History Medical History Date Comments Hx Other Medical DJD HTN (hypertension) CAD (coronary artery disease) HLD (hyperlipidemia) DM (diabetes mellitus) (HCC) Family History Medical History Relation Name Comments Other Father Pacemaker; Dementia Mother Relation Name Status Comments Father Mother Social History Tobacco Use Types Packs/Day Years [...] on file Legal Sex Male 1:57 AM RUFFLER Gender Identity Not on file Sexual Orientation Not on file Obstetrics History Last Filed Vital Signs Vital Sign Reading Time Taken Comments Blood Pressure 148/76 12/19/2023 8:32 AM CDT Pulse 77 12/19/2023 8:32 AM CDT Temperature 36.7 C (98.1 F) 03/10/2023 7:38 AM RUFFLER Respiratory Rate 21 03/10/2023 12:00 PM RUFFLER Oxygen Saturation 99% 12/19/2023 8:32 AM CDT Inhaled Oxygen Concentration - - Weight 81.4 kg (179 lb 6.4 oz) 12/19/2023 8:32 A M CDT Height 182.9 cm (6') 12/19/2023 8:32 AM CDT Body Mass Index 24.33 12/19/2023 8:32 AM CDT Plan of Treatment Health Maintenance Due Date Last Done Comments Colon Cancer Screening-Colonoscopy 1955 Depression Screening 1954 Hepatitis C Screening 1954 Hepatitis B Screening 1972 Pneumococcal vaccine 65+ (1 of 1 - PCV) 2004 Zoster Vaccine (1 of 2) 2004 Abdominal Aortic Aneurysm (AAA) Screen 2019 Well Visit 65+ 2019 Covid-19 Vaccine (3 - season) 2023, 11/21/2020 Influenza Vaccine (#1) 2023 Fall Risk Assessment 03/10/2024 03/10/2023 DTaP/Tdap/Td Vaccine (3 - Td or Tdap) 11/30/2030, 03/24/2020 Medical Devices Implanted Type Area Barrel Bander Device Identifier Shelf Expiration Date Model / Serial / Lot [employer] Stent Drug Eluting S Megatron Mr [id number] - S0 - [id number] Implanted:Qty : 1 on 03/10/2023 by Sal Erazo MD at [facility] Stent Left: Circumflex Coronary Artery [employer] 10/30/2024 [id number] / 0 / [id number] [employer] Angio-Seal Vip 6fr Closere Device [id number] - S0 - [id number] Implanted:Qty : 1 on 03/10/2023 by Sal Erazo MD at [facility] Vascular Closure Device Right: Femoral [employer]smar 09/22/2023 [id number] / 0 / [id number] Procedures Procedure Name Priority Date/Time Associated [...] David Thibodeaux MD on 04/08/2019 3:49 PM RUFFLER Follow up thyroid FNA completed 02-20-19 (scanned to media). Keily SULTANA, RN. Edited by: Keily Guallpa Follow up endoscopy completed 12/27/18. Keily SULTANA RN. Edited by: Keily Guallpa Electronically signed [...] signed by: David Thibodeaux M.D. Becki Proctor NP IMG CT PROCEDURES Edited R esult - Final from Last 3 Months or Most Recently Relevant to Health Maintenance Insurance [employer] CHOICE MEDICARE PPO MEDICARE [facility] AETNA SIGNATURE HU[employer]NA CHOICE MEDICARE PPO Advance Directives For more information, please contact: [phone] * Full Code (Latest Code Status on File) Date Activated Date Inactivated Comments 03/10/2023 10:16 AM 03/10/2023 5:27 PM Care Teams Cooking Show Host Relationship Specialty Start Date End Date Ashwin Lawler MD [address] [place] [address] PCP - General Family Medicine 08/21/22
--- OUTSIDE RECORDS SUMMARY | 2024-08-27 09:35 | XMS_ITS | Encounter Summary ---
Author Organization [facility] Address [address] [place] [address] Care Team Providers Care Radial Drill Press Set Up Operator Name Role Phone Unavailable Primary Care Provider Unavailabl e Encounter Details Date Type Department Care Team (Late st Contact Info) Description 09/06/2006 Outpatient Historical [facility] Support Serv. ([facility] Card[facility]) [address] 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
--- OUTSIDE RECORDS SUMMARY | 2024-08-27 09:35 | XMS_ITS | Clinical Summary ---
Author Organization [facility] Address [address] [place] [address] Care Team Providers Care Tv Technician Name Role Phone Ashwin Lawler MD Primary Care Provider [phone] Source Comments [facility],non-owned Affiliates and Associated Physician Practices is amultiple site organization consisting of ambulatory clinics and hospital sitesin [place], [place], [place] and [place]. This disclosure is being madepursuant to the Care Everywhere program and may not contain all information available regarding this patient. Last updated 18.[facility] Allergies No known active allergies Medications * Be aware that medications may not be up to date on this document. Alwaysverify current medications with the patient. carvedilol (COREG) 12.5 MG tablet Take 1 (one) tablet by mouth once daily 9 Active LANTUS SOLOSTAR pen 100 (one hundred) Units by Injection route once daily 9 Active Insulin Lispro (HUMALOG KWIKPEN) 100 UNIT/ML Inject 10 (ten) Units subcutaneously 3 times daily 9 Active metFORMIN (GLUCOPHAGE) 850 MG tablet Take 1 (one) tablet by mouth once daily 9 Active lisinopril (PRINIVIL; ZESTRIL) 10 MG tablet Take 1 (one) tablet by mouth once daily 9 Active simvastatin (ZOCOR) 40 MG tablet Take 1 (one) tablet by mouth once daily 9 Active omeprazole (PRILOSEC) 40 MG capsule Take 1 (one) capsule by mouth once daily 9 Active NOVOFINE 32G X 6 MM MISC 0 Active traZODone (DESYREL) 50 MG tablet Take 1 tablet by mouth at bedtime 30 tablet 0 Active Active Problems Problem Noted Date Diagnosed Date Wound of foot 11/27/2023 Social History Tobacco Use Types Packs/Day Years Used Date Smoking Tobacco: Never Smokeless Tobacco: Never Tobacco Cessation:Counseling Given: Yes Alcohol Use Standard Drinks/Week Comments Never 0 (1 standard drink = 0.6 oz pur e alcohol) AUDIT-C Answer Date Recorded Q1: How often do you have a drink containing alcohol? Never 11/28/2023 Q2: How many drinks containi ng alcohol do you have on a typical day when you are drinking? Patient does not drink Q3: How often do you have si x or more drinks on one occasion? Never 11/28/2023 Overall Financial Resource Strain (CARDIA) Answe r Date Recorded How hard is it for you to pa y for the very basics like food, housing, medical care, and heating? Not hard at all 12/01/2023 Hunger Vital Sign Answer Date Recorded Within the past 12 months, y ou worried that your food would run out before you got the money to buy more. Never true 12/01/19 24 Within the past 12 months, t he food you bought just didn't last and you didn't have money to get more. Never true 12/01/2023 PRAPARE - Transportation Answer Date Re corded In the past 12 months, has l ack of transportation kept you from medical appointments or from getting medications? No 11/15 In the past 12 months, has l ack of transportation kept you from meetings, work, or from getting things needed for daily living? No 12/01/2023 Housing Stability Vital Sign Answer Masoud e Recorded In the last 12 months, was t here a time when you were not able to pay the mortgage or rent on time? No 12/01/2023 Number of Places Lived in the Last Year Not on f ile 12/01/2023 In the last 12 months, was t here a time when you did not have a steady place to sleep or slept in a retirement (including now)? No 12/01/2023 Sex and Gender Information Value Date Recorded Sex Assigned at Not on file Legal Sex Male 6:30 AM CAREGIVERS NON MEDICAL Gender Identity Not on file Sexual Orientation Not on file Last Filed Vital Signs Vital Sign Reading Time Taken Comments Blood Pressure 112/66 11/29/2023 2:17 PM CDT Pulse 77 11/29/2023 2:17 PM CDT Temperature 36.6 C (97.9 F) 11/29/2023 2:17 PM CDT Respiratory Rate 18 11/29/2023 2:17 PM CDT Oxygen Saturation 97% 11/29/2023 2:17 PM CDT Inhaled Oxygen Concentration - - Weight 83.3 kg (183 lb 10.3 oz) 11/28/2023 1:30 AM CDT Height 182.9 cm (6') 11/28/2023 1:30 AM CDT Body Mass Index 24.91 11/28/2023 1:30 AM CDT Plan of Treatment Health Maintenance Due Date Last Done Comments COLOGUARD (AGES 45-75) - COL ON CA SCREENING 1954 COLON MONITORING 1954 COLONOSCOPY - COLON CA SCREENING 1954 CT COLONOGRAPHY - COLON CA SCREENING 1954 Colorectal Cancer Screening 1954 FIT - COLON CA SCREENING 1954 FLEX SIG - COLON CA SCREENING 1954 HEPATITIS C SCREENING 06/06/1972 DTAP/TDAP/TD VACCINES (1 - Tdap) 1973 PNEUMOCOCCAL VACCINE 50+ (1 of 1 - PCV) 2004 ZOSTER VACCINE (1 of 2) 2004 COVID-19 VACCINE (3 - 2023-2 5 season) 2023 12/13/2020, 11/21/2020 DEPRESSION SCREENING 04/17/2024 MEDICARE AWV CALENDAR YEAR 2024 INFLUENZA VACCINE (Season Ended) 2024 Respiratory Syncytial Virus (RSV) Vaccine Pt: or over 60 yrs (1 - 1-dose 75+ series) 2029 HEPATITIS B VACCINE Aged Out No longe r eligible based on patient's age to complete this topic HIB VACCINE Aged Out No longer eligi ble based on patient's age to complete this topic HPV VACCINE Aged Out No longer eligi ble based on patient's age to complete this topic MENINGOCOCCAL (Group B) VACCINE SHARED DECISION-MAKING Aged Out No longer eligible based on patient's age to complete this topic MENINGOCOCCAL GROUPS A/C/Y/W VACCINE Aged Out No longer eligible b ased on patient's age to complete this topic Insurance MEDICARE MEDICARE HU[employer]NA MEDICARE ADV HMO & PPO Advance Directives * Full Code (Latest Code Status on File) Date Activated Date Inactivated Comments 11/28/2023 2:23 AM 11/29/2023 7:27 PM Care Teams Tv Technician Relationship Specialty Start Date End Date Ashwin Lawler MD PCP - General 09/26/17
[2024-08-27 09:46] VITALS: BMI 23.3
--- NOTE | 2024-08-27 10:01 | ADMGEN ---
This patient, Ramirez Orantes Jr., was admitted to [facility] Surg Room 327-01. Patient/family oriented to hospital policies and general routines including ID bracelet, bed and alarms, visiting hours, pain management, procedures, bathroom and other care routines, personal items, smoking policy, room service/diet, and visiting hours. Information on how to activate the Rapid Response Team has been discussed. Patient/Family are encouraged to report perceived risks to care and to ask questions if they do not understand what they are told or what they should do.
--- OUTSIDE RECORDS SUMMARY | 2024-08-27 10:20 | XMS_ITS | Encounter Summary ---
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 Patient CallBack number: [phone] NESS PRACTICES SUPERVISOR documented in this encounter Plan of Treatment Not on file documented as of this encounter Visit Diagnoses Not on filedocumented in this encounter Care Teams Oracle R12 Developer Relationship Specialty Start Date End Date Ashwin Lawler MD PCP - General 09/26/17 documented as of this encounter
--- OUTSIDE RECORDS SUMMARY | 2024-08-27 10:20 | XMS_ITS | Encounter Summary ---
Author Organization [facility] Address [address] [place] [address] Care Team Providers Care Site Identification Specialist Name Role Phone Unavailable Primary Care Provider Unavailabl e Encounter Details Date Type Department Care Team (Late st Contact Info) Description 10/12/2006 Outpatient Historical [facility] Cardiovas and Thor Surg at [facility] 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
--- OUTSIDE RECORDS SUMMARY | 2024-08-27 10:20 | XMS_ITS | Clinical Summary ---
Author Organization [facility] Address [address] [place] [address] Care Team Providers Care Storm Sash Maker Name Role Phone Ashwin Lawler MD Primary Care Provider [phone] Allergies No known active allergies Medications metFORMIN [...] stent 04/05/2023 Coronary artery disease invo lving chilkat coronary artery of chilkat heart without angina pectoris 08/24/2022 Cardiomyopathy, ischemic [...] on file Legal Sex Male 1:57 AM GRADUATE TEACHING ASSISTANT Gender Identity Not on file Sexual Orientation Not on file Obstetrics History Last Filed Vital Signs Vital Sign Reading Time Taken Comments Blood Pressure 148/76 12/19/2023 8:32 AM CDT Pulse 77 12/19/2023 8:32 AM CDT Temperature 36.7 C (98.1 F) 03/10/2023 7:38 AM GRADUATE TEACHING ASSISTANT Respiratory Rate 21 03/10/2023 12:00 PM GRADUATE TEACHING ASSISTANT Oxygen Saturation 99% 12/19/2023 8:32 AM CDT [...] Covid-19 Vaccine (3 - season) 2023, 11/21/2020 Fall Risk Assessment 03/10/2024 03/10/2023 Influenza Vaccine (Season Ended) 2024 DTaP/Tdap/Td Vaccine (3 - Td or Tdap) 11/30/2030, 03/24/2020 Medical Devices Implanted Type Area Advertising Specialist Device Identifier Shelf Expiration Date Model / Serial / Lot [employer] Osmar Stent Drug Eluting S Megatron Mr [id number] - S0 - [id number] Implanted:Qty : 1 on 03/10/2023 by Sal Erazo MD at [facility] Stent Left: Circumflex Coronary Artery [employer] Osamr 10/30/2024 [id number] / 0 / [id number] [employer] Osmar Angio-Seal Vip 6fr Closere Device [id number] - S0 - [id number] Implanted:Qty : 1 on 03/10/2023 by Sal Erazo MD at [facility] Vascular Closure Device Right: Femoral [employer] Osmar 09/22/2023 [id number] / 0 / [id number] Procedures Procedure Name Priority Date/Time Associated [...] David Thibodeaux MD on 04/08/2019 3:49 PM GRADUATE TEACHING ASSISTANT Follow up thyroid FNA completed 02-20-19 (scanned [...] Maintenance Insurance HU[employer]NA CHOICE MEDICARE PPO MEDICARE [facility] AETNA SIGNATURE HUMANA CHOICE MEDICARE PPO Advance Directives For more information, please contact: [phone] * Full Code (Latest Code Status on File) Date Activated Date Inactivated Comments 03/10/2023 10:16 AM 03/10/2023 5:27 PM Care Teams Storm Sash Maker Relationship Specialty Start Date End Date Ashwin Lawler MD [address] [place] [address] PCP - General Family Medicine 08/21/22
--- OUTSIDE RECORDS SUMMARY | 2024-08-27 10:20 | XMS_ITS | Clinical Summary ---
Author Organization [facility] Address [address] [place] [address] Care Team Providers Care Impregnator And Drier Helper Name Role Phone Unavailable Primary Care Provider Unavailabl e Social History Tobacco Use Types Packs/Day Years Used Date Smoking Tobacco: Never Assessed Sex and Gender Information Value Date Recorded Sex Assigned at Not on file Legal Sex Male 4:42 AM PILOT STEAM YACHT Gender Identity Not on file Sexual Orientation [...]
--- OUTSIDE RECORDS SUMMARY | 2024-08-27 10:20 | XMS_ITS | Encounter Summary ---
Author Organization [facility] Address [address] [place] [address] Care Team Providers Care Historic Sites Registrar Name Role Phone Unavailable Primary Care Provider Unavailabl e Encounter Details Date Type Department Care Team (Late st Contact Info) Description 09/07/2006 Outpatient Historical [facility] Cardiovas and Thor Surg at [facility] [address] [place] [address] Lily Dalton, ALEXANDRO [address] [place] [address] Social History Tobacco Use Types Packs/Day Years Used Date Smoking Tobacco: Never Assessed Sex and Gender Information Value Date Recorded Sex Assigned at Not on file Legal 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
--- OUTSIDE RECORDS SUMMARY | 2024-08-27 10:20 | XMS_ITS | Clinical Summary ---
Author Organization [facility] Address [address] [place] [address] Phone Care Team Providers Care Margin Trimmer Name Role Phone Unavailable Primary Care Provider [...]
--- OUTSIDE RECORDS SUMMARY | 2024-08-27 10:20 | XMS_ITS | Encounter Summary ---
Author Organization [employer] Address 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 JV Elena Navarro MD [facility] [address] [address] Patric Thomas MD [address] [facility] [address] [facility] [address] [place] [address] Coronary Atherosclerosis of [place] Coronary Artery (Primary Dx) Social History Tobacco Use Types Packs/Day Years Used Date Smoking Tobacco: Never Assessed Sex and Gender Information Value Date Recorded Sex Assigned at Not on file 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 Gender Identity Not on file Sexual Orientation [...] CARE TESTING Javier jadiel Performing Organization Address City/[facility] Co de Phone Number INTERFACE SYSTEM Refer [...] CARE TESTING Javier jadiel Performing Organization Address [facility] Phone Number INTERFACE SYSTEM Refer to clinic/hospital department * (ABNORMAL) POC GLUCOSE (09/09/2006 11:06 AM CDT) GLUCOSE POC 226(H) 65 - 99 mg/dL INTERFACE SYSTEM 09/09/2006 11:0 6 AM CDT Patric Thomas MD POINT OF CARE TESTING Javier jadiel Performing Organization Address [facility] Phone Number INTERFACE SYSTEM Refer to clinic/hospital department * (ABNORMAL) POC GLUCOSE (09/09/2006 7:38 AM CDT) GLUCOSE POC 169(H) 65 - 99 mg/dL INTERFACE SYSTEM 09/09/2006 7:38 AM CDT Patric Thomas MD POINT OF CARE TESTING Javier jadiel Performing Organization Address [facility] Phone Number INTERFACE SYSTEM Refer [...] MC HEMATOLOGY ORDERABLES Edited Performing Organization Address [facility] Phone Number INTERFACE SYSTEM Refer [...] MC HEMATOLOGY ORDERABLES Edited Performing Organization Address [facility] Phone Number INTERFACE SYSTEM Refer to clinic/hospital department * MAGNESIUM LEVEL (09/09/2006 4:40 AM CDT) MAGNESIUM 2.5 1.5 - 2.5 mg/dL INTERFACE SYSTEM 09/09/2006 4:40 AM CDT Patric Thomas MD CHEMISTRY ORDERABLES Edit ed Performing Organization Address [facility] Phone Number INTERFACE SYSTEM Refer [...] and non- Americans is available on the [facility] Intranet at: [email or web address] Select: Lab Policies and Procedures Select: Reference Ranges - GFR 09/09/2006 4:40 AM CDT us Kori MC CHEMISTRY ORDERABLES Edited Performing Organization Address [facility] de Phone Number INTERFACE SYSTEM Refer to clinic/hospital department * (ABNORMAL) POC GLUCOSE (09/08/2006 8:21 PM CDT) GLUCOSE POC 245(H) 65 - 99 mg/dL INTERFACE SYSTEM 09/08/2006 8:21 PM CDT Patric Thomas MD POINT OF CARE TESTING Javieradair duvall Performing Organization Address [facility] de Phone Number INTERFACE SYSTEM Refer to clinic/hospital department * (ABNORMAL) POC GLUCOSE (09/08/2006 4:45 PM CDT) GLUCOSE POC 190(H) 65 - 99 mg/dL INTERFACE SYSTEM 09/08/2006 4:45 PM CDT Patric Thomas MD POINT OF CARE TESTING Javier jadiel Performing Organization Address [facility] de Phone Number INTERFACE SYSTEM Refer to clinic/hospital department * (ABNORMAL) POC GLUCOSE (09/08/2006 11:32 AM CDT) GLUCOSE POC 140(H) 65 - 99 mg/dL INTERFACE SYSTEM 09/08/2006 11:3 2 AM CDT Patric Thomas MD POINT OF CARE TESTING Javier jadiel Performing Organization Address [facility] Phone Number INTERFACE SYSTEM Refer to clinic/hospital department * (ABNORMAL) POC GLUCOSE (09/08/2006 9:35 AM CDT) GLUCOSE POC 119(H) 65 - 99 mg/dL INTERFACE SYSTEM 09/08/2006 9:35 AM CDT Patric Thomas MD POINT OF CARE TESTING Javier jadiel Performing Organization Address [facility] Phone Number INTERFACE SYSTEM Refer to clinic/hospital department * (ABNORMAL) POC GLUCOSE (09/08/2006 6:01 AM CDT) GLUCOSE POC 134(H) 65 - 99 mg/dL INTERFACE SYSTEM 09/08/2006 6:01 AM CDT Patric Thomas MD POINT OF CARE TESTING Javier jadiel Performing Organization Address [facility] Phone Number INTERFACE SYSTEM Refer to clinic/hospital department * (ABNORMAL) POC GLUCOSE (09/08/2006 4:30 AM CDT) GLUCOSE POC 129(H) 65 - 99 mg/dL INTERFACE SYSTEM 09/08/2006 4:30 AM CDT Patric Thomas MD POINT OF CARE TESTING Javier jadiel Performing Organization Address [facility] Phone Number INTERFACE SYSTEM Refer [...] HEMATOLOGY ORDERABLES Edit ed Performing Organization Address [facility] de Phone Number INTERFACE SYSTEM Refer to [...] HEMATOLOGY ORDERABLES Edit ed Performing Organization Address [facility] de Phone Number INTERFACE SYSTEM Refer to [...] patients with mechanical heart valves or post [place]. Pediatric (12 years and under): 1.5 - [...] and non- Americans is available on the [facility] Intranet at: [email or web address] Select: Lab Policies and Procedures Select: Reference Ranges - GFR 09/08/2006 4:30 AM CDT Elena Navarro MD CHEMISTRY ORDERABLES Edite d Performing Organization Address [facility] de Phone Number INTERFACE SYSTEM Refer to clinic/hospital department * (ABNORMAL) CVR ONLY, CKMB/CK (09/08/2006 4:30 AM CDT) CKMB 3.8 <=6.7 ng/mL INTERFACE SYSTEM CKMB INTERP Negative INTERFAC E SYSTEM CK 232(H) 10 - 170 U/L INTERFACE SYSTEM CARDIAC RELATIVE INDEX 1.6 <=4.0 INTERFACE SYSTEM 09/08/2006 4:30 AM CDT Elena Navarro MD CHEMISTRY ORDERABLES Edite d Performing Organization Address [facility] de Phone Number INTERFACE SYSTEM Refer to clinic/hospital department * (ABNORMAL) POC GLUCOSE (09/07/2006 11:35 PM CDT) GLUCOSE POC 135(H) 65 - 99 mg/dL INTERFACE SYSTEM 09/07/2006 11:3 5 PM CDT Patric Thomas MD POINT OF CARE TESTING Javier jadiel Performing Organization Address [facility] de Phone Number INTERFACE SYSTEM Refer to clinic/hospital department * (ABNORMAL) POC GLUCOSE (09/07/2006 10:18 PM CDT) GLUCOSE POC 130(H) 65 - 99 mg/dL INTERFACE SYSTEM 09/07/2006 10:1 8 PM CDT Patric Thomas MD POINT OF CARE TESTING Javier jadiel Performing Organization Address City/[facility] Phone Number INTERFACE SYSTEM Refer to clinic/hospital department * MAGNESIUM LEVEL (09/07/2006 10:00 PM CDT) MAGNESIUM 2.1 1.5 - 2.5 mg/dL INTERFACE SYSTEM 09/07/2006 10:0 0 PM CDT Kori MC CHEMISTRY ORDERABLES Edited Performing Organization Address [facility] Phone Number INTERFACE SYSTEM Refer to clinic/hospital department * POTASSIUM LEVEL (09/07/2006 10:00 PM CDT) POTASSIUM 4.0 3.5 - 4.9 mmol/L INTERFACE SYSTEM 09/07/2006 10:0 0 PM CDT us Kori MC CHEMISTRY ORDERABLES Edited Performing Organization Address [facility] Phone Number INTERFACE SYSTEM Refer to clinic/hospital department * (ABNORMAL) CVR ONLY, CKMB/CK (09/07/2006 8:45 PM CDT) CKMB 5.2 <=6.7 ng/mL INTERFACE SYSTEM CKMB INTERP Negative INTERFAC E SYSTEM CK 260(H) 10 - 170 U/L INTERFACE SYSTEM CARDIAC RELATIVE INDEX 2.0 <=4.0 INTERFACE SYSTEM 09/07/2006 8:45 PM CDT Elena Navarro MD CHEMISTRY ORDERABLES Edite d Performing Organization Address City/[facility] Phone Number INTERFACE SYSTEM Refer to clinic/hospital department * POC GLUCOSE (09/07/2006 8:44 PM CDT) GLUCOSE POC 94 65 - 99 mg/dL INTERFACE SYSTEM 09/07/2006 8:44 PM CDT Patric Thomas MD POINT OF CARE TESTING Javier jadiel Performing Organization Address [facility] Phone Number INTERFACE SYSTEM Refer to clinic/hospital department * (ABNORMAL) POC GLUCOSE (09/07/2006 6:23 PM CDT) GLUCOSE POC 152(H) 65 - 99 mg/dL INTERFACE SYSTEM 09/07/2006 6:23 PM CDT Patric Thomas MD POINT OF CARE TESTING Javier jadiel Performing Organization Address [facility] Phone Number INTERFACE SYSTEM Refer to clinic/hospital department * (ABNORMAL) POC GLUCOSE (09/07/2006 4:48 PM CDT) GLUCOSE POC 191(H) 65 - 99 mg/dL INTERFACE SYSTEM 09/07/2006 4:48 PM CDT Patric Thomas MD POINT OF CARE TESTING Javier jadiel Performing Organization Address [facility] Phone Number INTERFACE SYSTEM Refer to clinic/hospital department * (ABNORMAL) POC GLUCOSE (09/07/2006 3:51 PM CDT) GLUCOSE POC 189(H) 65 - 99 mg/dL INTERFACE SYSTEM 09/07/2006 3:51 PM CDT Patric Thomas MD POINT OF CARE TESTING Javier jadiel Performing Organization Address City/[facility] Phone Number INTERFACE SYSTEM Refer to clinic/hospital department * POTASSIUM LEVEL (09/07/2006 3:45 PM CDT) POTASSIUM 4.1 3.5 - 4.9 mmol/L INTERFACE SYSTEM 09/07/2006 3:45 PM CDT us Elena Navarro MD CHEMISTRY ORDERABLES Edite d Performing Organization Address [facility] de Phone Number INTERFACE SYSTEM Refer to clinic/hospital department * (ABNORMAL) POC GLUCOSE (09/07/2006 2:45 PM CDT) GLUCOSE POC 226(H) 65 - 99 mg/dL INTERFACE SYSTEM 09/07/2006 2:45 PM CDT us Patric Thomas MD POINT OF CARE TESTING Javier jadiel Performing Organization Address [facility] de Phone Number INTERFACE SYSTEM Refer to clinic/hospital department * (ABNORMAL) POC GLUCOSE (09/07/2006 1:17 PM CDT) GLUCOSE POC 238(H) 65 - 99 mg/dL INTERFACE SYSTEM 09/07/2006 1:17 PM CDT us Patric Thomas MD POINT OF CARE TESTING Javier jadiel Performing Organization Address [facility] de Phone Number INTERFACE SYSTEM Refer to [...] CHEMISTRY ORDERABLES Edit ed Performing Organization Address [facility] de Phone Number INTERFACE SYSTEM Refer to [...] CHEMISTRY ORDERABLES Edite d Performing Organization Address [facility] de Phone Number INTERFACE SYSTEM Refer to [...] HEMATOLOGY ORDERABLES Edit ed Performing Organization Address [facility] de Phone Number INTERFACE SYSTEM Refer to [...] patients with mechanical heart valves or post [place]. Pediatric (12 years and under): 1.5 - [...] HEMATOLOGY ORDERABLES Edit ed Performing Organization Address [facility] de Phone Number INTERFACE SYSTEM Refer to clinic/hospital department * MAGNESIUM LEVEL (09/07/2006 10:00 AM CDT) MAGNESIUM 2.2 1.5 - 2.5 mg/dL INTERFACE SYSTEM 09/07/2006 10:0 0 AM CDT us Elena Navarro MD CHEMISTRY ORDERABLES Edite d Performing Organization Address [facility] Phone Number INTERFACE SYSTEM Refer [...] and non- Americans is available on the [facility] Intranet at: [email or web address] Select: Lab Policies and Procedures Select: Reference Ranges - GFR 09/07/2006 10:0 0 AM CDT us Elena Navarro MD CHEMISTRY ORDERABLES Edite d Performing Organization Address [facility] de Phone Number INTERFACE SYSTEM Refer to [...] CHEMISTRY ORDERABLES Edit ed Performing Organization Address [facility] de Phone Number INTERFACE SYSTEM Refer to [...] CHEMISTRY ORDERABLES Edit ed Performing Organization Address City/State/[facility] Co de Phone Number INTERFACE SYSTEM Refer [...] CHEMISTRY ORDERABLES Edit ed Performing Organization Address City/State/[facility] Co de Phone Number INTERFACE SYSTEM Refer to clinic/hospital department * (ABNORMAL) POC GLUCOSE (09/07/2006 5:15 AM CDT) GLUCOSE POC 211(H) 65 - 99 mg/dL INTERFACE SYSTEM 09/07/2006 5:15 AM CDT Patric Thomas MD POINT OF CARE TESTING Javier jadiel Performing Organization Address [facility] Phone Number INTERFACE SYSTEM Refer to clinic/hospital department * (ABNORMAL) POC GLUCOSE (09/06/2006 9:43 PM CDT) GLUCOSE POC 186(H) 65 - 99 mg/dL INTERFACE SYSTEM 09/06/2006 9:43 PM CDT Patric Thomas MD POINT OF CARE TESTING Javier jadiel Performing Organization Address [facility] Phone Number INTERFACE SYSTEM Refer to [...] MD URINE ORDERABLES Edited Performing Organization Address [facility] Phone Number INTERFACE SYSTEM Refer [...] MD URINE ORDERABLES Edited Performing Organization Address [facility] Phone Number INTERFACE SYSTEM Refer to clinic/hospital department * (ABNORMAL) POC GLUCOSE (09/06/2006 2:22 PM CDT) GLUCOSE POC 174(H) 65 - 99 mg/dL INTERFACE SYSTEM 09/06/2006 2:22 PM CDT Patric Thomas MD POINT OF CARE TESTING Javier jadiel Performing Organization Address [facility] Phone Number INTERFACE SYSTEM Refer to clinic/hospital department * POC ACTIVATED CLOTTING TIME (09/06/2006 1:28 PM CDT) ACT POC 110 Seconds INTERFACE SYSTEM Comment: Note sheath pull range change effective 10/07/2005. ACT value for sheath pull at [facility] has been established to be < or = to 1 40. (See also Nursing Procedures for sheath pull in related nursing areas) 09/06/2006 1:28 PM CDT Patric Thomas MD POINT OF CARE TESTING Javier jadiel Performing Organization Address [facility] Phone Number INTERFACE SYSTEM Refer to clinic/hospital department * POC ACTIVATED CLOTTING TIME (09/06/2006 10:13 AM CDT) ACT POC 602 Seconds INTERFACE SYSTEM Comment: Note sheath pull range change effective 10/07/2005. ACT value for sheath pull at [facility] has been established to be < or = to 1 40. (See also Nursing Procedures for sheath pull in related nursing areas) COMMENT, ACT POC Rpt @ no charge INTERFACE SYSTEM 09/06/2006 10:1 3 AM CDT us Patric Thomas MD POINT OF CARE TESTING Javieradair duvall Performing Organization Address [facility] Phone Number INTERFACE SYSTEM Refer to clinic/hospital department * POC ACTIVATED CLOTTING TIME (09/06/2006 10:13 AM CDT) ACT POC 755 Seconds INTERFACE SYSTEM Comment: Note sheath pull range change effective 10/07/2005. ACT value for sheath pull at [facility] has been established to be < or = to 1 40. (See also Nursing Procedures for sheath pull in related nursing areas) 09/06/2006 10:1 3 AM CDT Patric Thomas MD POINT OF CARE TESTING Javier jadiel Performing Organization Address [facility] Phone Number INTERFACE SYSTEM Refer to clinic/hospital department * (ABNORMAL) POC GLUCOSE (09/06/2006 7:44 AM CDT) COMMENT, GLU POC Notified RN INTERFACE SYSTEM GLUCOSE POC 231(H) 65 - 99 mg/dL INTERFACE SYSTEM 09/06/2006 7:44 AM CDT Patric Thomas MD POINT OF CARE TESTING Javier jadiel Performing Organization Address [facility] Phone Number INTERFACE SYSTEM Refer to clinic/hospital department documented in this encounter Visit Diagnoses Diagnosis Coronary atherosclerosis of [place] coronary artery- Primary documented in this encounter
--- OUTSIDE RECORDS SUMMARY | 2024-08-27 10:20 | XMS_ITS | Encounter Summary ---
Author Organization [employer] Address [address] [place] [address] Care Team Providers Care Supply Chain Tech Name Role Phone Unavailable Primary Care Provider Unavailabl e Encounter Details Date Type Department Care Team (Late st Contact Info) Description 09/10/2006 Outpatient Historical [facility] Support Serv. (Adt Cardiology-[facility]) [address] 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
--- OUTSIDE RECORDS SUMMARY | 2024-08-27 10:20 | XMS_ITS | Encounter Summary ---
Author Organization [employer] Address [address] [place] [address] Care Team Providers Care Electrolysist Name Role Phone Unavailable Primary Care Provider Unavailabl e Encounter Details Date Type Department Care Team (Late st Contact Info) Description 06/06/2005 Outpatient Historical [facility] Support Serv. (Adt Cardiology[facility]) [address] 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
--- OUTSIDE RECORDS SUMMARY | 2024-08-27 10:20 | XMS_ITS | Encounter Summary ---
Author Organization [facility] Address [address] [place] [address] Care Team Providers Care Emissions Technician Name Role Phone Unavailable Primary Care Provider Unavailabl e Encounter Details Date Type Department Care Team (Late st Contact Info) Description 09/07/2006 Outpatient Historical [facility] Cardiovas and Thor Surg at [facility] [address] [facility] [place] [address] Elena Navarro MD [address] [facility] [address] [place] [address] Social History Tobacco Use Types Packs/Day Years Used Date Smoking Tobacco: Never Assessed Sex and Gender Information Value Date Recorded Sex Assigned at Not on file 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
--- OUTSIDE RECORDS SUMMARY | 2024-08-27 10:20 | XMS_ITS | Continuity of Care Document ---
Author Organization [facility] Address [address] [place] [address] Phone Care Team Providers Care Sanitarian Name Role Phone Ben Cabello Unavailable Unavailable Procedures Procedure Date Office/outpatient Visit, Est Dilated Retinal Exam W Interpretation Ja Dilated Macular Or Fundus Exam Findings Communicat Communication Performed Eye Exam & Treatment Advance Directives Directive Yes / No Effective Date File Name No Information Encounters Encounter Description Practice Location Reason(s) For Visit Diagnoses Date Provider Providers Copied on Encounter Office/outpat ient Visit, Est [facility], [address], [place], [place], [id number], [place] tel:[phone] [facility] No Information 5-201 0 Dawitnasdesiree Ben. [address] [facility] [address], [place], [address], [place]. tel:[phone] [facility], [address], [place], [place], [id number], [place] tel:[phone] [facility] No Information 6-200 8 Adamson OD Iain. [address], [place], [address], [place]. tel:[phone] Family History Family Member Type Diagnosis Age At Onset No Information Payers Payer name Insurance type Covered libertarian ID Authoriza tion(s) [place] [id number] Social History Type Description Quantity Date Captured [...]
--- OUTSIDE RECORDS SUMMARY | 2024-08-27 10:20 | XMS_ITS | Encounter Summary ---
Author Organization [employer] Address [address] [place] [address] Care Team Providers Care Chain Forming Machine Operator Name Role Phone Unavailable Primary Care Provider Unavailabl e Encounter Details Date Type Department Care Team (Late st Contact Info) Description 06/08/2005 Outpatient Historical [facility] Support [facility] ([facility]) [address] 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
--- OUTSIDE RECORDS SUMMARY | 2024-08-27 10:20 | XMS_ITS | Referral Summary ---
Author Organization [facility] Address [address] [place] [address] Care Team Providers Care Pet Care Worker Name Role Phone Ashwin Lawler MD Primary Care Provider [phone] Allergies No known active allergies Medications metFORMIN [...] stent 04/05/2023 Coronary artery disease invo lving [place] coronary artery of [place] heart without angina pectoris 08/24/2022 Cardiomyopathy, ischemic [...] on file Legal Sex Male 1:57 AM HR REPRESENTATIVE Gender Identity Not on file Sexual Orientation Not on file Last Filed Vital Signs Vital Sign Reading Time Taken Comments Blood Pressure 148/76 12/19/2023 8:32 AM CDT Pulse 77 12/19/2023 8:32 AM CDT Temperature 36.7 C (98.1 F) 03/10/2023 7:38 AM HR REPRESENTATIVE Respiratory Rate 21 03/10/2023 12:00 PM HR REPRESENTATIVE Oxygen Saturation 99% 12/19/2023 8:32 AM CDT Inhaled Oxygen Concentration - - Weight 81.4 kg (179 lb 6.4 oz) 12/19/2023 8:32 A M CDT Height 182.9 cm (6') 12/19/2023 8:32 AM CDT Body Mass Index 24.33 12/19/2023 8:32 AM CDT Plan of Treatment Not on file Medical Devices Implanted Type Area Window Air Conditioner Installer Device Identifier Shelf Expiration Date Model / Serial / Lot [employer] Stent Drug Eluting S Megatron Us Mr [id number] - S0 - [id number] Implanted:Qty : 1 on 03/10/2023 by Sal Erazo MD at [facility] Stent Left: Circumflex Coronary Artery [employer] Osmar 10/30/2024 [id number] / 0 / [id number] [employer] Osmar Angio-Seal Vip 6fr Closere Device [id number] - S0 - [id number] Implanted:Qty : 1 on 03/10/2023 by Sal Erazo MD at [facility] Vascular Closure Device Right: Femoral [employer] Osmar 09/22/2023 [id number] / 0 / [id number] Procedures Procedure Name Priority Date/Time Associated [...] David Thibodeaux MD on 04/08/2019 3:49 PM HR REPRESENTATIVE Follow up thyroid FNA completed 02-20-19 (scanned [...] signed by: David Thibodeaux M.D. Becki Proctor INVESTIGATIVE RESEARCH SPECIALIST IMG CT PROCEDURES Edited R esult - Final from Last 3 Months or Most Recently Relevant to Health Maintenance Insurance [employer] CHOICE MEDICARE PPO MEDICARE [facility] AETNA [facility] HU[employer]NA CHOICE MEDICARE PPO Advance Directives For more information, please contact: [phone] * Full Code (Latest Code Status on File) Date Activated Date Inactivated Comments 03/10/2023 10:16 AM 03/10/2023 5:27 PM Care Teams Pet Care Worker Relationship Specialty Start Date End Date Ashwin Lawler MD [address] [place] [address] T[place] DIAMOND [phone] PCP - General Family Medicine 08/21/22
--- OUTSIDE RECORDS SUMMARY | 2024-08-27 10:20 | XMS_ITS | Encounter Summary ---
Author Organization [employer] [facility] Address [address] [place] [address] Care Team Providers Care Poker Dealer Name Role Phone Unavailable Primary Care Provider Unavailabl e Encounter Details Date Type Department Care Team (Latest Contact Info) Description 10/12/2006 Outpatient Historical [facility] RAD[facility]KA Navarro, Elena Baig MD [address] [place] [address] Follow-Up Examination, Following Other Surgery (Primary Dx); Coronary Atherosclerosis of [place] Coronary Artery; Unspecified Pleural Effusion; Pulmonary Collapse Social History Tobacco Use Types Packs/Day Years Used Date Smoking Tobacco: Never Assessed Sex and Gender Information Value Date Recorded Sex Assigned at Not on file 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
--- OUTSIDE RECORDS SUMMARY | 2024-08-27 10:20 | XMS_ITS | Encounter Summary ---
Author Organization [facility] Address [address] [place] [address] Care Team Providers Care Driver Messenger Name Role Phone Unavailable Primary Care Provider Unavailabl e Encounter Details Date Type Department Care Team (Late st Contact Info) Description 09/06/2006 Outpatient Historical [facility] Cardiovas and Thor Surg at 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
--- OUTSIDE RECORDS SUMMARY | 2024-08-27 10:20 | XMS_ITS | Encounter Summary ---
Author Organization [employer] Address [address] [place] [address] Care Team Providers Care Consulting Analyst Name Role Phone Unavailable Primary Care Provider Unavailabl e Encounter Details Date Type Department Care Team (Latest Contact Info) Description 06/06/2005 Inpatient Historical HIS PATIENT IN A BED Patric Thomas MD [address] [address] [facility] ([facility]) (Primary Dx) Social History Tobacco Use Types Packs/Day Years Used Date Smoking Tobacco: Never Assessed Sex and Gender Information Value Date Recorded Sex Assigned at Not on file Legal 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 Gender Identity Not on file Sexual Orientation Not on file documented as of this encounter Plan of Treatment Not on file documented as of this encounter Procedures Procedure Name Priority Date/Time Associated Diagnosis Comments POC GLUCOSE Routine 06/09/2005 6:58 AM MOLD YARD CRANE OPERATOR POC GLUCOSE Routine 06/08/2005 10:11 PM MOLD YARD CRANE OPERATOR POC GLUCOSE Routine 06/08/2005 4:29 PM MOLD YARD CRANE OPERATOR POC GLUCOSE Routine 06/08/2005 11:22 AM MOLD YARD CRANE OPERATOR POC GLUCOSE Routine 06/08/2005 6:54 AM MOLD YARD CRANE OPERATOR CBC WITH DIFFERENTIAL Routine 06/08/2005 5:05 AM MOLD YARD CRANE OPERATOR CBC WITH DIFFERENTIAL Routine 06/08/2005 5:05 AM MOLD YARD CRANE OPERATOR MAGNESIUM LEVEL Routine 06/08/2005 5:05 AM MOLD YARD CRANE OPERATOR BASIC METABOLIC PANEL Routine 06/08/2005 5:05 AM MOLD YARD CRANE OPERATOR POC GLUCOSE Routine 06/07/2005 9:14 PM MOLD YARD CRANE OPERATOR CBC WITH DIFFERENTIAL Routine 06/07/2005 5:12 PM MOLD YARD CRANE OPERATOR CBC WITH DIFFERENTIAL Routine 06/07/2005 5:12 PM MOLD YARD CRANE OPERATOR POC GLUCOSE Routine 06/07/2005 4:33 PM MOLD YARD CRANE OPERATOR POC GLUCOSE Routine 06/07/2005 11:44 AM MOLD YARD CRANE OPERATOR CBC WITH DIFFERENTIAL Routine 06/07/2005 5:36 AM MOLD YARD CRANE OPERATOR CBC WITH DIFFERENTIAL Routine 06/07/2005 5:36 AM MOLD YARD CRANE OPERATOR BASIC METABOLIC PANEL Routine 06/07/2005 5:36 AM MOLD YARD CRANE OPERATOR POC GLUCOSE Routine 06/07/2005 5:31 AM MOLD YARD CRANE OPERATOR CK TOTAL, RELATIVE INDEX Routine 06/07/2005 4:10 AM MOLD YARD CRANE OPERATOR CKMB W/REFLEX CK Routine 06/07/2005 4:10 AM MOLD YARD CRANE OPERATOR TROPONIN (W/REFLEX CKMB/CK) Routine 06/07/2005 4:10 AM MOLD YARD CRANE OPERATOR MAGNESIUM LEVEL Routine 06/07/2005 4:10 AM MOLD YARD CRANE OPERATOR POC GLUCOSE Routine 06/07/2005 12:40 AM MOLD YARD CRANE OPERATOR CK TOTAL, RELATIVE INDEX Routine 06/06/2005 11:30 PM MOLD YARD CRANE OPERATOR CKMB W/REFLEX CK Routine 06/06/2005 11:3 0 PM MOLD YARD CRANE OPERATOR CBC WITH DIFFERENTIAL Routine 06/06/2005 11:30 PM MOLD YARD CRANE OPERATOR CBC WITH DIFFERENTIAL Routine 06/06/2005 11:30 PM MOLD YARD CRANE OPERATOR MAGNESIUM LEVEL Routine 06/06/2005 11:30 PM MOLD YARD CRANE OPERATOR LIPID PANEL Routine 06/06/2005 11:30 PM MOLD YARD CRANE OPERATOR COMPREHENSIVE METABOLIC PANEL Routine 06/06/2005 11:30 PM MOLD YARD CRANE OPERATOR POC GLUCOSE Routine 06/06/2005 8:43 PM MOLD YARD CRANE OPERATOR documented in this encounter Results * (ABNORMAL) POC GLUCOSE (06/09/2005 6:58 AM MOLD YARD CRANE OPERATOR) GLUCOSE POC 214(H) 65 - 109 mg/dL INTERFACE SYSTEM 06/09/2005 6:58 AM MOLD YARD CRANE OPERATOR Patric Thomas MD POINT OF CARE TESTING Fin al Result Performing Organization Address [facility] Phone Number INTERFACE SYSTEM Refer to clinic/hospital department * (ABNORMAL) POC GLUCOSE (06/08/2005 10:11 PM MOLD YARD CRANE OPERATOR) GLUCOSE POC 262(H) 65 - 109 mg/dL INTERFACE SYSTEM 06/08/2005 10:1 1 PM MOLD YARD CRANE OPERATOR Patric Thomas MD POINT OF CARE TESTING Fin al Result Performing Organization Address [facility] Phone Number INTERFACE SYSTEM Refer to clinic/hospital department * (ABNORMAL) POC GLUCOSE (06/08/2005 4:29 PM MOLD YARD CRANE OPERATOR) GLUCOSE POC 268(H) 65 - 109 mg/dL INTERFACE SYSTEM 06/08/2005 4:29 PM MOLD YARD CRANE OPERATOR Patric Thomas MD POINT OF CARE TESTING Fin al Result Performing Organization Address [facility] de Phone Number INTERFACE SYSTEM Refer to clinic/hospital department * (ABNORMAL) POC GLUCOSE (06/08/2005 11:22 AM MOLD YARD CRANE OPERATOR) GLUCOSE POC 253(H) 65 - 109 mg/dL INTERFACE SYSTEM 06/08/2005 11:2 2 AM MOLD YARD CRANE OPERATOR Patric Thomas MD POINT OF CARE TESTING Fin al Result Performing Organization Address [facility] de Phone Number INTERFACE SYSTEM Refer to clinic/hospital department * (ABNORMAL) POC GLUCOSE (06/08/2005 6:54 AM MOLD YARD CRANE OPERATOR) GLUCOSE POC 214(H) 65 - 109 mg/dL INTERFACE SYSTEM 06/08/2005 6:54 AM MOLD YARD CRANE OPERATOR Patric Thomas MD POINT OF CARE TESTING Fin al Result Performing Organization Address [facility] de Phone Number INTERFACE SYSTEM Refer to clinic/hospital department * CBC WITH DIFFERENTIAL (06/08/2005 5:05 AM MOLD YARD CRANE OPERATOR) NEUTROPHILS 57 45 - 70 % INTERFAC [...] 0.20 K/uL INTERFACE SYSTEM 06/08/2005 5:05 AM MOLD YARD CRANE OPERATOR Patric Thomas MD HEMATOLOGY ORDERABLES Fin al Result Performing Organization Address [facility] de Phone Number INTERFACE SYSTEM Refer to clinic/hospital department * CBC WITH DIFFERENTIAL (06/08/2005 5:05 AM MOLD YARD CRANE OPERATOR) WBC 7.5 4.0 - 9.8 K/uL INTERFACE [...] 12.4 fL INTERFACE SYSTEM 06/08/2005 5:05 AM MOLD YARD CRANE OPERATOR Patric Thomas MD HEMATOLOGY ORDERABLES Fin al Result Performing Organization Address [facility] Phone Number INTERFACE SYSTEM Refer to clinic/hospital department * MAGNESIUM LEVEL (06/08/2005 5:05 AM MOLD YARD CRANE OPERATOR) MAGNESIUM 1.9 1.5 - 2.5 mg/dL INTERFACE SYSTEM 06/08/2005 5:05 AM MOLD YARD CRANE OPERATOR Patric Thomas MD CHEMISTRY ORDERABLES Freya l Result Performing Organization Address [facility] Phone Number INTERFACE SYSTEM Refer to clinic/hospital department * (ABNORMAL) BASIC METABOLIC PANEL (06/08/2005 5:05 AM MOLD YARD CRANE OPERATOR) GLUCOSE 218(H) 65 - 109 mg/dL INTERFACE [...] 30 mmol/L INTERFACE SYSTEM 06/08/2005 5:05 AM MOLD YARD CRANE OPERATOR Patric Thomas MD CHEMISTRY ORDERABLES Freya l Result Performing Organization Address [facility] Phone Number INTERFACE SYSTEM Refer to clinic/hospital department * (ABNORMAL) POC GLUCOSE (06/07/2005 9:14 PM MOLD YARD CRANE OPERATOR) GLUCOSE POC 226(H) 65 - 109 mg/dL INTERFACE SYSTEM 06/07/2005 9:14 PM MOLD YARD CRANE OPERATOR Patric Thomas MD POINT OF CARE TESTING Fin al Result Performing Organization Address [place]/[facility] de Phone Number INTERFACE SYSTEM Refer to clinic/hospital department * CBC WITH DIFFERENTIAL (06/07/2005 5:12 PM MOLD YARD CRANE OPERATOR) NEUTROPHILS 64 45 - 70 % INTERFAC [...] 0.20 K/uL INTERFACE SYSTEM 06/07/2005 5:12 PM MOLD YARD CRANE OPERATOR Eric Carter HEMATOLOGY ORDERABLES Final Resu lt Performing Organization Address [facility] Phone Number INTERFACE SYSTEM Refer to clinic/hospital department * (ABNORMAL) CBC WITH DIFFERENTIAL (06/07/2005 5:12 PM MOLD YARD CRANE OPERATOR) WBC 8.5 4.0 - 9.8 K/uL INTERFACE [...] 12.4 fL INTERFACE SYSTEM 06/07/2005 5:12 PM MOLD YARD CRANE OPERATOR Eric Carter HEMATOLOGY ORDERABLES Final Resu lt INTERFACE SYSTEM Refer to clinic/hospital department * (ABNORMAL) POC GLUCOSE (06/07/2005 4:33 PM MOLD YARD CRANE OPERATOR) GLUCOSE POC 218(H) 65 - 109 mg/dL INTERFACE SYSTEM 06/07/2005 4:33 PM MOLD YARD CRANE OPERATOR Patric Thomas MD POINT OF CARE TESTING Fin al Result Performing Organization Address [facility] Co de Phone Number INTERFACE SYSTEM Refer to clinic/hospital department * (ABNORMAL) POC GLUCOSE (06/07/2005 11:44 AM MOLD YARD CRANE OPERATOR) GLUCOSE POC 271(H) 65 - 109 mg/dL INTERFACE SYSTEM 06/07/2005 11:4 4 AM MOLD YARD CRANE OPERATOR Patric Thomas MD POINT OF CARE TESTING Fin al Result Performing Organization Address [facility] Co de Phone Number INTERFACE SYSTEM Refer to clinic/hospital department * (ABNORMAL) CBC WITH DIFFERENTIAL (06/07/2005 5:36 AM MOLD YARD CRANE OPERATOR) NEUTROPHILS 73(H) 45 - 70 % INTERFAC [...] 0.20 K/uL INTERFACE SYSTEM 06/07/2005 5:36 AM MOLD YARD CRANE OPERATOR us Carmina Dick MD HEMATOLOGY ORDERABLES Final Resu lt INTERFACE SYSTEM Refer to clinic/hospital department * (ABNORMAL) CBC WITH DIFFERENTIAL (06/07/2005 5:36 AM MOLD YARD CRANE OPERATOR) WBC 9.7 4.0 - 9.8 K/uL INTERFACE [...] 12.4 fL INTERFACE SYSTEM 06/07/2005 5:36 AM MOLD YARD CRANE OPERATOR us Carmina Dick MD HEMATOLOGY ORDERABLES Final Resu Performing Organization Address [facility] Phone Number INTERFACE SYSTEM Refer to clinic/hospital department * (ABNORMAL) BASIC METABOLIC PANEL (06/07/2005 5:36 AM MOLD YARD CRANE OPERATOR) GLUCOSE 194(H) 65 - 109 mg/dL INTERFACE [...] 30 mmol/L INTERFACE SYSTEM 06/07/2005 5:36 AM MOLD YARD CRANE OPERATOR us Carmina Dick MD CHEMISTRY ORDERABLES Final Resul t Performing Organization Address [facility] Phone Number INTERFACE SYSTEM Refer to clinic/hospital department * (ABNORMAL) POC GLUCOSE (06/07/2005 5:31 AM MOLD YARD CRANE OPERATOR) GLUCOSE POC 197(H) 65 - 109 mg/dL INTERFACE SYSTEM 06/07/2005 5:31 AM MOLD YARD CRANE OPERATOR Patric Thomas MD POINT OF CARE TESTING Fin al Result Performing Organization Address [facility] Phone Number INTERFACE SYSTEM Refer to clinic/hospital department * (ABNORMAL) CK TOTAL, RELATIVE INDEX (06/07/2005 4:10 AM MOLD YARD CRANE OPERATOR) CK 2,552(H) 10 - 170 U/L INTERFACE SYSTEM CARDIAC RELATIVE INDEX 10.2(H) <=4.0 INTERFACE SYSTEM 06/07/2005 4:10 AM MOLD YARD CRANE OPERATOR Carmina Dick MD CHEMISTRY ORDERABLES Final Resul t Performing Organization Address [facility] Phone Number INTERFACE SYSTEM Refer to clinic/hospital department * (ABNORMAL) CKMB W/REFLEX CK (06/07/2005 4:10 AM MOLD YARD CRANE OPERATOR) CKMB 260.1(AA) <=6.7 ng/mL INTERFACE SYSTEM Comment:Results called to alka at 06/07/2005 5:15 AM and read back verified. CKMB INTERP See Below INTERFAC E SYSTEM Comment:Elevated CKMB,Consis tent with Myocardial Injury. 06/07/2005 4:10 AM MOLD YARD CRANE OPERATOR Carmina Dick MD CHEMISTRY ORDERABLES Final Resul t Performing Organization Address [facility] Phone Number INTERFACE SYSTEM Refer to clinic/hospital department * MAGNESIUM LEVEL (06/07/2005 4:10 AM MOLD YARD CRANE OPERATOR) MAGNESIUM 1.8 1.5 - 2.5 mg/dL INTERFACE SYSTEM 06/07/2005 4:10 AM MOLD YARD CRANE OPERATOR Patric Thomas MD CHEMISTRY ORDERABLES Freya l Result Performing Organization Address [facility] Phone Number INTERFACE SYSTEM Refer to clinic/hospital department * (ABNORMAL) TROPONIN (W/REFLEX CKMB/CK) (06/07/2005 4:10 AM MOLD YARD CRANE OPERATOR) TROPONIN T 5.35(AA) <=0.03 ng/mL INTERFACE SYSTEM Comment:Results called to Lyndsay fernandes at 06/07/2005 4:55 AM and read back verified. TROPONIN T INTERP See Below INTERFACE SYSTEM Comment:Elevated Troponin-T, Consistent with Myocardial Injury 06/07/2005 4:10 AM MOLD YARD CRANE OPERATOR Carmina Dick MD CHEMISTRY ORDERABLES Final Resul t Performing Organization Address [facility] Phone Number INTERFACE SYSTEM Refer to clinic/hospital department * (ABNORMAL) POC GLUCOSE (06/07/2005 12:40 AM MOLD YARD CRANE OPERATOR) GLUCOSE POC 226(H) 65 - 109 mg/dL INTERFACE SYSTEM 06/07/2005 12:4 0 AM MOLD YARD CRANE OPERATOR Patric Thomas MD POINT OF CARE TESTING Fin al Result Performing Organization Address [facility] Phone Number INTERFACE SYSTEM Refer to clinic/hospital department * (ABNORMAL) CK TOTAL, RELATIVE INDEX (06/06/2005 11:30 PM MOLD YARD CRANE OPERATOR) CK 3,063(H) 10 - 170 U/L INTERFACE SYSTEM CARDIAC RELATIVE INDEX 12.1(H) <=4.0 INTERFACE SYSTEM 06/06/2005 11:3 0 PM MOLD YARD CRANE OPERATOR Carmina Dick MD CHEMISTRY ORDERABLES Final Resul t Performing Organization Address [facility] Phone Number INTERFACE SYSTEM Refer to clinic/hospital department * (ABNORMAL) CKMB W/REFLEX CK (06/06/2005 11:30 PM MOLD YARD CRANE OPERATOR) CKMB 369.5(AA) <=6.7 ng/mL INTERFACE SYSTEM Comment: Results called to Hiwot at 06/07/2005 7:19 AM and read back verified. Previous specimen used; approved by floor. , (2330 from 06/06/05) CKMB INTERP See Below INTERFAC E SYSTEM Comment:Elevated CKMB,Consis tent with Myocardial Injury. 06/06/2005 11:3 0 PM MOLD YARD CRANE OPERATOR Carmina Dick MD CHEMISTRY ORDERABLES Final Resul t Performing Organization Address [facility] Phone Number INTERFACE SYSTEM Refer to clinic/hospital department * MAGNESIUM LEVEL (06/06/2005 11:30 PM MOLD YARD CRANE OPERATOR) MAGNESIUM 1.9 1.5 - 2.5 mg/dL INTERFACE SYSTEM 06/06/2005 11:3 0 PM MOLD YARD CRANE OPERATOR Patric Thomas MD CHEMISTRY ORDERABLES Freya l Result Performing Organization Address [facility] Phone Number INTERFACE SYSTEM Refer to clinic/hospital department * (ABNORMAL) CBC WITH DIFFERENTIAL (06/06/2005 11:30 PM MOLD YARD CRANE OPERATOR) NEUTROPHILS 83(H) 45 - 70 % INTERFAC [...] K/uL INTERFACE SYSTEM 06/06/2005 11:3 0 PM MOLD YARD CRANE OPERATOR Patric Thomas MD HEMATOLOGY ORDERABLES Fin al Result Performing Organization Address [facility] Phone Number INTERFACE SYSTEM Refer to clinic/hospital department * (ABNORMAL) CBC WITH DIFFERENTIAL (06/06/2005 11:30 PM MOLD YARD CRANE OPERATOR) WBC 14.5(H) 4.0 - 9.8 K/uL INTERFACE [...] fL INTERFACE SYSTEM 06/06/2005 11:3 0 PM MOLD YARD CRANE OPERATOR Patric Thomas MD HEMATOLOGY ORDERABLES Fin al Result INTERFACE SYSTEM Refer to clinic/hospital department * LIPID PANEL (06/06/2005 11:30 PM MOLD YARD CRANE OPERATOR) Pathologist [facility] LIPID PANEL COMMENT See below INTERFACE [...] for risk classifications. 06/06/2005 11:3 0 PM MOLD YARD CRANE OPERATOR us Carmina Dick MD CHEMISTRY ORDERABLES Final Resul t Performing Organization Address [place]/[facility] Phone Number INTERFACE SYSTEM Refer to clinic/hospital department * (ABNORMAL) COMPREHENSIVE METABOLIC PANEL (06/06/2005 11:30 PM MOLD YARD CRANE OPERATOR) GLUCOSE 225(H) 65 - 109 mg/dL INTERFACE [...] mmol/L INTERFACE SYSTEM 06/06/2005 11:3 0 PM MOLD YARD CRANE OPERATOR us Carmina Dick MD CHEMISTRY ORDERABLES Final Resul t Performing Organization Address [facility] de Phone Number INTERFACE SYSTEM Refer to clinic/hospital department * (ABNORMAL) POC GLUCOSE (06/06/2005 8:43 PM MOLD YARD CRANE OPERATOR) GLUCOSE POC 247(H) 65 - 109 mg/dL INTERFACE SYSTEM 06/06/2005 8:43 PM MOLD YARD CRANE OPERATOR us Patric Thomas MD POINT OF CARE TESTING Ceferino al Result INTERFACE SYSTEM Refer to clinic/hospital department documented in this encounter Visit Diagnoses Diagnosis Acute myocardial infarction of other anterior wall, initial episode of care ([facility])- Primary Acute myocardial infarction of other anterior wall, initial episode of care documented in this encounter
--- OUTSIDE RECORDS SUMMARY | 2024-08-27 10:20 | XMS_ITS | Clinical Summary ---
Author Organization [facility] Address [address] [place] [address] Care Team Providers Care Student Admissions Clerk Name Role Phone Ashwin Lawler MD Primary Care Provider [phone] Source Comments [facility],non-owned Affiliates and Associated Physician Practices is amultiple site organization consisting of ambulatory clinics and hospital sitesin [place] and [place]. This disclosure is being madepursuant to the Care Everywhere program and may not contain all information available regarding this patient. 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
--- OUTSIDE RECORDS SUMMARY | 2024-08-27 10:20 | XMS_ITS | Encounter Summary ---
Author Organization [employer] Address [address] [place] [address] Care Team Providers Care Auto Club Safety Program Coordinator Name Role Phone Unavailable Primary Care Provider Unavailabl e Encounter Details Date Type Department Care Team (Late st Contact Info) Description 09/06/2006 Outpatient Historical [facility] Support [facility] ([facility]) [address] 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
--- OUTSIDE RECORDS SUMMARY | 2024-08-27 10:20 | XMS_ITS | Clinical Summary ---
Author Organization [facility] Address [facility] [place] [address] Care Team Providers Care Journeyman Pipefitter Name Role Phone Unavailable Primary Care Provider [...]
[2024-08-27 10:39] LABS: Basophils Percent Auto 0.2 % (0.2-1.2); Eosinophils Percent Auto 0.1 % (0-4.4); Hematocrit 38.3 % (42.0-52.0); Hemoglobin 12.2 g/dL (14.0-18.0); Immature Granulocyte Absolute 0.07 K/mm3 (0.00-0.031); Immature Granulocyte Percent A 0.5 % (0-0.5); Lymphocytes Absolute Auto 1.01 K/mm3 (0.9-3.2); Mean Corpuscular HGB Conc 31.9 g/dl (32-36); Mean Corpuscular Hemoglobin 29.5 pg (26-34); Mean Corpuscular Volume 92.5 fl (80-100); Mean Platelet Volume 9.7 fl (7.4-10.4); Monocytes Absolute Auto 0.9 K/mm3 (0.1-0.6); Monocytes Percent Auto 6.6 % (2.6-8.5); Neutrophils Absolute Auto 12.3 K/mm3 (1.3-6.7); Neutrophils Percent Auto 85.6 % (45.5-73.1); Platelet Count Result 296 k/mm3 (150-375); Red Blood Count 4.14 M/mm3 (4.6-6.20); Red Cell Distribution Width 11.6 % (11.5-14.5); White Blood Count 14.3 K/mm3 (4.5-10.0)
[2024-08-27 10:47] LABS: Hemoglobin A1C 11.3 % (<5.7)
[2024-08-27 10:49] LABS: Alanine Aminotransferase 14 U/L (6-50); Albumin Level 3.8 g/dL (3.5-5.1); Alkaline Phosphatase 99 U/L (38-126); Anion Gap 7 mmol/L (4-12); Aspartate Amino Transferase 21 U/L (17-59); Bilirubin,Total 0.9 mg/dL (0.2-1.3); Blood Urea Nitrogen 13 mg/dL (9-20); Calcium 8.8 mg/dL (8.4-10.2); Carbon Dioxide 33 mmol/L (22-30); Chloride 92 mmol/L (98-107); Estimated CRCL calculation 94 ml/min; Estimated Glomerular Filt Rate > 60; Glucose 301 mg/dL (65-110); Potassium 4.8 mmol/L (3.4-5.0); Sodium 132 mmol/L (137-145)
[2024-08-27 11:03] LABS: CRP 12.5 mg/dL (<1.0)
[2024-08-27 11:07] LABS: Erythrocyte Sedimentation Rate 77 mm/hr (0-20)
[2024-08-27 12:17] LABS: Glucose Point of Care 290 mg/dl (65-105)
--- NOTE | 2024-08-27 12:30 | P.HP_ITS ---
H&P: HPI History of Present Illness Date/Time: 08/27/24 12:30 Chief Complaint: Infected diabetic foot ulcer Narrative: 69-year-old male past medical history of diabetes type 2, colon cancer, who systolic heart failure, and diabetic ulcer presents the hospital with infected right foot diabetic ulcer. Patient follows up at wound clinic and was referred to the hospital. Patient has been seen by Orthopedics. Patient has no complaints, he denies nausea vomiting fever chills. His lab work shows leukocytosis at 14.3, sodium of 132, chloride of 92, carbon dioxide of 33, hemoglobin A1c of 11.3, C reactive protein of 12.5, x-ray shows Soft tissue gas at the heel fat pad with likely related to an overlying skin ulceration. Differential for soft tissue gas includes necrotizing fasciitis which is ultimately a clinical diagnosis. No associated osteomyelitis. Review of Systems Review of Systems: General: well appearing, appears stated age. HEENT: normocephalic, atraumatic. Mucous membranes moist. EOMI, PERRLA, bilateral sclera anicteric, no conjunctival injection. Neck supple without JVD, lymphadenopathy, or bruit. Respiratory: clear to ascultation bilaterally. No rales/rhonic/wheezes. Cardiovascular: Regular rate and rhythm, normal S1-S2 upon ascultation. No murmurs, rubs, or clicks. PMI is nondisplaced, capillary refill less than 3 second. Abdomen: Soft, round, no pulsatile masses, nondistended and nontender. No rebound, no guarding. No CVA tenderness, no hepatosplenomegaly. Bowel sounds present to all four quadrants. No high pitch or tinkling sounds, resonant to percussion. Extremities: No cyanosis, clubbing, or edema present. Pulses are palpable 2/2. Active ROM to all four extremities. Neuro: Alert and orientated x 4. PERRLA. Cranial nerves 2-12 intact without focal deficit. Skin: Warm, dry, and intact, without rash, erythema, or lesion. 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 GERD (gastroesophageal reflux disease) Carpal tunnel syndrome Surgical History Surgical History History of incision and drainage Complex I&D Right foot infected diabetic foot ulcer measuring approximately 5x4cm. on 12/19/21 Status post debridement (12/2020) Right foot abscess, osteomyelitis. History of coronary artery stent placement History of cardiac catheterization History of colonoscopy with polypectomy History of repair of hiatal hernia (2001) History of coronary artery bypass graft History of carpal tunnel release History of arthroscopy of right knee History of hernia repair (2018) Finger amputee Right 2nd finger secondary to crush injury. History of right hemicolectomy with ileocolic anastomsis in 2019 Family History Family History Sibling Family history of malignant neoplasm Father Family history of chronic obstructive pulmonary disease Hypertension Heart disease Mother Hypertension Cancer Sibling Cancer Sibling Cancer Sibling Cancer Social History Social History Social History: The patient is and lives with his and 1 son in [place]. They have 4 children. 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 No alcohol or illicit substance abuse. Surrogate medical decision maker: Tash Orantes, spouse. Code status: Full code. Years smoked: 10 Smoking status: Former smoker Alcohol intake: never Substance use: never Substance use type: does not use Do You Feel Safe in your Home?: Yes Lack of Transportation: No Lack of Food: Never True Current Housing: I Have Housing Concerned About Future Housing: No Difficulty Paying Gas/Electric Bills: No Difficulty Paying for Meds: No Currently Unemployed: No Education: High School Diploma/GED Difficulty w/ Childcare or Family Care: No Living arrangements: with family Occupation/Education: retired Gender identity (if verbalized by the patient): Male Sexual Orientation (if Verbalized by the Patient): Straight or Heterosexual Spiritual care concerns: No Meds Home Medications and Allergies Home Medications ?Medication ?Instructions ?Recorded ?Confirmed ?Type Jardiance 10 mg tablet 10 mg PO DAILY 30 days #30 tabs 06/18/24 08/27/24 Rx (empagliflozin) Lantus Solostar U-100 Insulin 100 10 unit (0.1 mL) subcut QPM #15 mL 06/18/24 08/27/24 Rx unit/mL (3 mL) subcutaneous pen (insulin glargine) sulfamethoxazole 800 1 tablet PO Q12H 10 days #20 tabs 08/23/24 08/27/24 Rx mg-trimethoprim 160 mg tablet (Bactrim DS) acetaminophen 500 mg tablet 1,000 mg PO Q6H PRN pain 08/27/24 08/27/24 History (Acetaminophen Extra Strength) meclizine 50 mg tablet (Antivert) 50 mg PO BID 08/27/24 08/27/24 History metformin 500 mg tablet 500 mg PO BID 08/27/24 08/27/24 History Allergies Allergy/AdvReac Type Severity Reaction Status Date / Time No Known Allergies Allergy Verified 08/23/24 13:10 Vital Signs Vital Signs - 24 hr 08/27/24 10:00 Oxygen Delivery Room Air Exam Narrative: General: well appearing, appears stated age. HEENT: normocephalic, atraumatic. Mucous membranes moist. EOMI, PERRLA, bilateral sclera anicteric, no conjunctival injection. Neck supple without JVD, lymphadenopathy, or bruit. Respiratory: clear to ascultation bilaterally. No rales/rhonic/wheezes. Cardiovascular: Regular rate and rhythm, normal S1-S2 upon ascultation. No murmurs, rubs, or clicks. PMI is nondisplaced, capillary refill less than 3 second. Abdomen: Soft, round, no pulsatile masses, nondistended and nontender. No rebound, no guarding. No CVA tenderness, no hepatosplenomegaly. Bowel sounds present to all four quadrants. No high pitch or tinkling sounds, resonant to percussion. Extremities: No cyanosis, clubbing, or edema present. Pulses are palpable 2/2. r foot with dressing clean dry intact no erythema on lower extremity Neuro: Alert and orientated x 4. PERRLA. Cranial nerves 2-12 intact without focal deficit. Skin: Warm, dry, and intact, without rash, erythema, or lesion. Psych: pleasant, cooperative, normal speech, normal affect, no hallucinations, no dysarthia H&P: Results Labs Labs: Short CBC 08/27/24 Range/Units 10:08 WBC 14.3 H (4.5-10.0) K/mm3 Hgb 12.2 L (14.0-18.0) g/dL Hct 38.3 L (42.0-52.0) % Plt Count 296 (150-375) k/mm3 BMP 08/27/24 10:08 Sodium 132 L Potassium 4.8 Chloride 92 L Carbon Dioxide 33 H BUN 13 D Creatinine 0.69 L Glucose 301 H Calcium 8.8 Liver Function 08/27/24 Range/Units 10:08 Total Bilirubin 0.9 (0.2-1.3) mg/dL AST 21 (17-59) U/L ALT 14 (6-50) U/L Alkaline Phosphatase 99 (38-126) U/L Albumin 3.8 (3.5-5.1) g/dL Assessment and Plan Assessment and plan (1) Heel ulcer due to DM: Qualifiers: Diabetes mellitus type: type 2 Laterality: left Non-pressure ulcer stage: with necrosis of muscle Qualified Code(s): E11.621 - Type 2 diabetes mellitus with foot ulcer; L97.423 - Non-pressure chronic ulcer of left heel and midfoot with necrosis of muscle Code(s): E11.621 - Type 2 diabetes mellitus with foot ulcer; L97.409 - Non-pressure chronic ulcer of unspecified heel and midfoot with unspecified severity Status: Acute Assessment and Plan: Orthopedics consulted Possible necrotizing fasciitis orthopedics notified MRI pending NPO currently IV clindamycin, meropenem and vancomycin (2) Hypertension: Qualifiers: Hypertension type: primary hypertension Qualified Code(s): I10 - Essential (primary) hypertension Code(s): I10 - Essential (primary) hypertension Status: Acute Assessment and Plan: Patient does not appear to be on antihypertensives Continue to monitor (3) Chronic systolic (congestive) heart failure: Code(s): I50.22 - Chronic systolic (congestive) heart failure Status: Acute Assessment and Plan: Euvolemic Monitor for fluid overload Patient on diuretics (4) CAD (coronary artery disease): Qualifiers: Associated angina: with stable angina Coronary Disease-Associated Artery/Lesion type: [place] artery [place] vs. transplanted heart: [place] heart Qualified Code(s): I25.118 - Atherosclerotic heart disease of [place] coronary artery with other forms of angina pectoris Code(s): I25.10 - Atherosclerotic heart disease of [place] coronary artery without angina pectoris Status: Acute Assessment and Plan: Continue Jardiance (5) Type 2 diabetes mellitus with hyperglycemia: Qualifiers: Diabetes mellitus terminal manager insulin use: with fdc use Qualified Code(s): E11.65 - Type 2 diabetes mellitus with hyperglycemia; Z79.4 - [facility] (current) use of insulin Code(s): E11.65 - Type 2 diabetes mellitus with hyperglycemia Status: Acute Assessment and Plan: Uncontrolled hemoglobin A1c 11.3 Hold home metformin NPO until orthopedic surgeons he is patient SSI and Lantus Quality VTE Prophylaxis VTE prophylaxis: mechanical ordered and pharmacologic ordered Hospitalist [facility] Advance Care Plan I have confirmed that the patient's Advanced Care Plan is present, code status is documented, or surrogate decision maker is listed in patient medical record.: Yes Medication Reconciliation I have utilized all available resources to obtain, update and review the patients current medications (includes all prescriptions, OTC, herbals, cannabis, and nutritional supplements).: Yes
[2024-08-27] MEDS: VANCOMYCIN 1,500 MG/NS 500 ML 1,500 MG/500 ML BAG 250 MG IVPB (13:11)
[2024-08-27 14:00] VITALS: BP 145/79; PULSE 106; RESP 22; TEMP 36.8; O2SAT 99
--- NOTE | 2024-08-27 14:00 | PC.NURSE ---
Jose R b2b outside sales representative at bedside fitting patient for left Post-Op shoe.
--- NOTE | 2024-08-27 14:47 | PM.CNOR ---
Assessment and Plan Assessment and plan (1) Heel ulcer due to DM: Qualifiers: Diabetes mellitus type: type 2 Laterality: left Non-pressure ulcer stage: with necrosis of muscle Qualified Code(s): E11.621 - Type 2 diabetes mellitus with foot ulcer; L97.423 - Non-pressure chronic ulcer of left heel and midfoot with necrosis of muscle Code(s): E11.621 - Type 2 diabetes mellitus with foot ulcer; L97.409 - Non-pressure chronic ulcer of unspecified heel and midfoot with unspecified severity Status: Acute Assessment and Plan: Following admission request, orders placed for a left foot x-ray, ABIs, CBC, CMP, ESR, CRP. On admission, white blood cell count 14.3, ESR 77 and CRP 12.5. Afebrile since admission. ABIs normal. Radiographs of the left foot reveal soft tissue gas at the heel fat pad, likely related to an overlying skin ulceration. Differential for soft tissue gas includes necrotizing fasciitis. Mild polyarticular osteoarthritis in the mid and forefoot with erosions at the heads of multiple proximal phalanges with displacement appearance most suggestive of gout. The left heel does have mild pain. Patient is able to flex and extend the left foot without severe pain. No significant calf pain or tenderness. Erythema does not extend outside of the surrounding tissue of the heel ulcer. Erythema marked for continued evaluation. No crepitus or purulent drainage. Currently with low clinical suspicion for necrotizing fasciitis. Patient has been started on broad-spectrum antibiotics by the medicine service. Awaiting wound culture results, blood culture results and MRI with contrast of the left foot. Discussed possible need for surgical debridement for worsening wound bed/surrounding tissue, increased pain, concerning changes or MRI results. Continue conservative treatment in the interim. Daily dressing changes with Dakins soaked gauze, cover dry, wrap with kerlex. Heel protectors while in bed. Reverse post op shoe while OOB. Limit WB of the LLE. (2) Diabetic ulcer of right foot: Qualifiers: Diabetic foot ulcer location: other Diabetes mellitus type: type 2 Non-pressure ulcer stage: with necrosis of muscle Qualified Code(s): E11.621 - Type 2 diabetes mellitus with foot ulcer; L97.513 - Non-pressure chronic ulcer of other part of right foot with necrosis of muscle Code(s): E11.621 - Type 2 diabetes mellitus with foot ulcer; L97.519 - Non-pressure chronic ulcer of other part of right foot with unspecified severity Status: Inactive Assessment and Plan: Follow up of right DFU. Patient with a history of peripheral neuropathy and type 2 diabetes, uncontrolled with most recent HgB A1C in November of 12%. History of previous infection with osteo right foot. Previous radiographs show deformity of the 3rd and 4th MTP joints now with extension deformity of the toes and increased plantar pressure of the forefoot. Wound with improvement in comparison to previous. Abundant callus formation. No signs of infection. (3) Peripheral sensory neuropathy due to type 2 diabetes mellitus: Code(s): E11.42 - Type 2 diabetes mellitus with diabetic polyneuropathy Status: Acute (4) Type 2 diabetes mellitus with hyperglycemia: Qualifiers: Diabetes mellitus intermediate accountant insulin use: with intermediate accountant use Qualified Code(s): E11.65 - Type 2 diabetes mellitus with hyperglycemia; Z79.4 - jail (current) use of insulin Code(s): E11.65 - Type 2 diabetes mellitus with hyperglycemia Status: Acute Assessment and Plan: Uncontrolled DM. HgB A1C >11%. Need diabetic nurse educator counseling with family present. Close diabetic control. Defer to medicine team. Plan Reviewed history, exam, radiographs and current labs with attending MD and covering surgeon, Dr. Lam, who agrees with current plan as indicated above. No further recommendations from Dr. Lam at this time. History of Present Illness HPI Consult date: 08/27/24 Chief complaint: New Onset LT Heel Ulcer Narrative: 69-year-old male admitted from the [facility] wound clinic today for concerns of an infected left heel ulcer. The patient is well known to the Orthopedic Service for diabetic foot ulcers over the last several years. He has most recently been being treated for a right 4th plantar metatarsal foot ulcer with a pressure phenomenon unable to be surgically treated due to chronically uncontrolled diabetes with hemoglobin A1c greater than 11%. Per the patient, 2 weeks ago he was working on his car when the lift that he had his car elevated on came out from underneath the car and his car subsequently dropped on bilateral shins. He did not note immediate pain to the left heel however his pain began approximately 2 days after. Denies known blister or open wound to the heel. Over the course of 1 week he showed increase in left heel pain. He was then noted to have a large blister and presented to his primary care on Monday of last week with concerning symptoms. He was started on oral antibiotics. He continued to have symptoms over the weekend and progressed with fever and chills. He was referred to both our service and General surgery by his primary care provider. He had a regularly scheduled appointment on Monday in the wound clinic for his right foot. This appointment was moved up for evaluation of the left foot. Left foot wound on exam in the wound clinic revealed an 8 x 12 cm ulcer with overlying blistering tissue which was easily debrided. Underlying ulcer measures 8 x 12 cm with 80% yellow/villarreal tissue and 20% pink tissue. Surrounding tissue with erythema consistent with cellulitis. Wound culture obtained in the wound clinic. Given patient's systemic symptoms of infection, the hospitalist service was consulted and patient was directly admitted. Orthopedic consult requested for possible surgical management. 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 GERD (gastroesophageal reflux disease) Carpal tunnel syndrome Surgical History Surgical History History of incision and drainage Complex I&D Right foot infected diabetic foot ulcer measuring approximately 5x4cm. on 12/19/21 Status post debridement (12/2020) Right foot abscess, osteomyelitis. History of coronary artery stent placement History of cardiac catheterization History of colonoscopy with polypectomy History of repair of hiatal hernia (2001) History of coronary artery bypass graft History of carpal tunnel release History of arthroscopy of right knee History of hernia repair (2019) Finger amputee Right 2nd finger secondary to crush injury. History of right hemicolectomy with ileocolic anastomsis in 2019 Family History Family History Sibling Family history of malignant neoplasm Father Family history of chronic obstructive pulmonary disease Hypertension Heart disease Mother Hypertension Cancer Sibling Cancer Sibling Cancer Sibling Cancer Social History Social History Social History: The patient is and lives with his and 1 son in [place]. They have 4 children. 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 No alcohol or illicit substance abuse. Surrogate medical decision maker: Tash Lamberto, spouse. Code status: Full code. Years smoked: 10 Smoking status: Former smoker Alcohol intake: never Substance use: never Substance use type: does not use Do You Feel Safe in your Home?: Yes Lack of Transportation: No Lack of Food: Never True Current Housing: I Have Housing Concerned About Future Housing: No Difficulty Paying Gas/Electric Bills: No Difficulty Paying for Meds: No Currently Unemployed: No Education: High School Diploma/GED Difficulty w/ Childcare or Family Care: No Living arrangements: with family Occupation/Education: retired Gender identity (if verbalized by the patient): Male Sexual Orientation (if Verbalized by the Patient): Straight or Heterosexual Spiritual care concerns: No Meds Home Medications and Allergies Home Medications ?Medication ?Instructions ?Recorded ?Confirmed ?Type Jardiance 10 mg tablet 10 mg PO DAILY 30 days #30 tabs 06/18/24 08/27/24 Rx (empagliflozin) Lantus Solostar U-100 Insulin 100 10 unit (0.1 mL) subcut QPM #15 mL 06/18/24 08/27/24 Rx unit/mL (3 mL) subcutaneous pen (insulin glargine) sulfamethoxazole 800 1 tablet PO Q12H 10 days #20 tabs 08/23/24 08/27/24 Rx mg-trimethoprim 160 mg tablet (Bactrim DS) acetaminophen 500 mg tablet 1,000 mg PO Q6H PRN pain 08/27/24 08/27/24 History (Acetaminophen Extra Strength) meclizine 50 mg tablet (Antivert) 50 mg PO BID 08/27/24 08/27/24 History metformin 500 mg tablet 500 mg PO BID 08/27/24 08/27/24 History Allergies Allergy/AdvReac Type Severity Reaction Status Date / Time No Known Allergies Allergy Verified 05/09/25 13:10 Vital Signs Vital Signs - 24 hr 08/27/24 10:00 08/27/24 14:00 Temperature 36.8 C Pulse Rate 106 H Respiratory Rate 22 H Blood Pressure 145/79 H Pulse Oximetry 99 Oxygen Delivery Room Air Exam Const: General: healthy appearing; No in distress or confusion Orientation/consciousness: oriented to person, oriented to place, oriented to time and No confusion HENMT: Head: normal to inspection, normocephalic and atraumatic Eyes: Conjunctivae: conjunctivae normal Sclera: sclerae normal Neck: Neck: supple and nontender Resp: Effort & Inspection: normal respiratory effort and no audible wheezes Cardio: Rhythm: regular rhythm Skin: General skin exam: no rashes or lesions noted Neuro: General: oriented to person, oriented to place, oriented to time and No confusion Extrem: Right upper extremity: normal to inspection Left upper extremity: normal to inspection Right lower extremity: ankle Details: normal to inspection, abnormal ROM Details: with range as follows (ankle dorsiflexion -10 degrees, plantar flexion 40?, inversion 15?, eversion 15?) and other ( good stability all directions); no tenderness, no swelling and no ecchymosis and foot Details: abnormal to inspection ( extension deformity of the 3rd and 4th toe) Details: other ( 1 x 1 cm ulcer plantar forefoot under the 4th metatarsal head surrounding callus. No surrounding erythema. No drainage.), abnormal ROM of toe ( hallux MTP dorsiflexion 40, plantar flexion 20?), vascular exam Details: dorsalis pedis pulse present (decreased, faintly palpable ) and normal capillary refill, tendon exam Details: active flexion abnormal and active extension abnormal, motor-sensory exam Details: two point discrimination abnormal Location: in all toes and light-touch abnormal Location: in all toes and other (Hallux metatarsophalangeal motion 20? dorsiflexion/10? plantar flexion) Left lower extremity: ankle Details: normal to inspection and abnormal ROM Details: with range as follows (ankle dorsiflexion -10 degrees, plantar flexion 40?, inversion 15?, eversion 15?); no tenderness and no swelling and foot Details: normal capillary refill, tenderness, abnormal ROM of toe, warmth, edema, vascular exam (2+DP pulse, good cap refill all toes), tendon exam active flexion abnormal of the great toe and active extension abnormal of the great toe and motor-sensory exam two point discrimination abnormal and light-touch abnormal in all toes; no crepitus Other: Wound on the plantar aspect of the right 4th MTP joint measures 0.8x1.0x0.3 cm. 100% red/pink wound bed. No signs of active infection. Wound on the calcaneus of the left heel measures 8x12cm, 80% yellow/villarreal, 20% pink. No depth determined due to necrotic tissue. Malodorous. Psych: Affect: normal affect Results Labs 08/27/24 10:08 08/27/24 10:08 Labs: Abnormal lab results 08/27/24 08/27/24 Range/Units 10:08 12:14 WBC 14.3 H (4.5-10.0) K/mm3 RBC 4.14 L (4.6-6.20) M/mm3 Hgb 12.2 L (14.0-18.0) g/dL Hct 38.3 L (42.0-52.0) % MCHC 31.9 L (32-36) g/dl Neut % (Auto) 85.6 H (45.5-73.1) % Lymph % (Auto) 7.0 L (18.3-44.2) % [place] # (Auto) 0.9 H (0.1-0.6) K/mm3 Abs Immat Gran (auto) 0.07 H (0.00-0.031) K/mm3 Absolute Neuts (auto) 12.3 H (1.3-6.7) K/mm3 ESR 77 H (0-20) mm/hr Sodium 132 L (137-145) mmol/L Chloride 92 L (98-107) mmol/L Carbon Dioxide 33 H (22-30) mmol/L Creatinine 0.69 L (0.7-1.3) mg/dL Glucose 301 H (65-110) mg/dL POC Capillary Glucose 290 H (65-105) mg/dl Hemoglobin A1c 11.3 H (<5.7) % C-Reactive Protein 12.5 H (<1.0) mg/dL H & H 08/27/24 Range/Units 10:08 Hgb 12.2 L (14.0-18.0) g/dL Hct 38.3 L (42.0-52.0) % All other labs normal.
[2024-08-27] MEDS: SOD HYPOCHLORITE 1/4 STRENGTH 473 ML 1 APPLIC TOPICAL (14:49)
[2024-08-27] MEDS: SODIUM CHLORIDE 0.9% IV 1,000 ML 125 ML IV CONT (15:38)
[2024-08-27] MEDS: MEROPENEM 1 GM/NS 100 ML 1 GM/100 ML BAG IVPB ×2 (15:45→20:56)
[2024-08-27] MEDS: CLINDAMYCIN 900 MG/D5W 50 ML 900 MG/50 ML PIGGYBACK 50 MG IVPB ×2 (15:45→21:27)
[2024-08-27 16:30] LABS: Glucose Point of Care 251 mg/dl (65-105)
[2024-08-27] MEDS: HYDROcodone/acetaminophen (*CRX) 5-325 MG TABLET 1 TAB PO (16:49)
[2024-08-27] MEDS: DOCUSATE SODIUM 100 MG CAPSULE PO (16:49)
[2024-08-27] MEDS: INSULIN ASPART (*BKC) 100 UNITS/ML SUB-Q ×2 (16:58→20:43)
[2024-08-27 18:36] LABS: Add Urine Microscopic? YES; Appearance Urine Clear (Clear); Bacteria Urine None Seen /hpf; Bilirubin Urine Negative (Negative); Blood Urine Negative (Negative); Color Urine Yellow (Yellow); Glucose Urine UA 3+ mg/dL (Negative); Ketones Urine Trace mg/dL (Negative); Leukocyte Esterase Ur Negative LEU/UL (Negative); Nitrate Urine Negative (Negative); Non Pathogenic Casts 0-2; Protein Urine 1+ mg/dL (Negative); RBC Urine 0-2 /hpf (0-2); Specific Grav Ur 1.036 (1.001-1.035); Squamous Epithelial Cell Urine None Seen /hpf (Few); WBC Urine 0-5 /hpf (0-3)
[2024-08-27] MEDS: MECLIZINE HCL 25 MG TABLET 50 MG PO (19:25)
[2024-08-27 20:31] LABS: Glucose Point of Care 280 mg/dl (65-105)
[2024-08-27] MEDS: INSULIN GLARGINE (*BKC) 100 UNITS/ML 12 UNITS SUB-Q (20:44)
[2024-08-27 22:00] VITALS: BP 143/75; PULSE 96; RESP 20; TEMP 37.1; O2SAT 98
[2024-08-28] MEDS: VANCOMYCIN 1,500 MG/NS 500 ML 1,500 MG/500 ML BAG 175 MG IVPB (00:24)
[2024-08-28 04:35] VITALS: BP 148/73; PULSE 82; RESP 20; TEMP 36.6; O2SAT 96
[2024-08-28] MEDS: CLINDAMYCIN 900 MG/D5W 50 ML 900 MG/50 ML PIGGYBACK 50 MG IVPB (05:07)
[2024-08-28] MEDS: MEROPENEM 1 GM/NS 100 ML 1 GM/100 ML BAG IVPB ×3 (05:48→21:30)
[2024-08-28 06:10] LABS: Basophils Percent Auto 0.3 % (0.2-1.2); Eosinophils Absolute Auto 0.1 K/mm3 (0-0.3); Eosinophils Percent Auto 0.6 % (0-4.4); Hematocrit 35.7 % (42.0-52.0); Hemoglobin 11.8 g/dL (14.0-18.0); Immature Granulocyte Absolute 0.08 K/mm3 (0.00-0.031); Immature Granulocyte Percent A 0.6 % (0-0.5); Lymphocytes Absolute Auto 1.31 K/mm3 (0.9-3.2); Lymphocytes Percent Auto 10.3 % (18.3-44.2); Mean Corpuscular HGB Conc 33.1 g/dl (32-36); Mean Corpuscular Hemoglobin 29.9 pg (26-34); Mean Corpuscular Volume 90.6 fl (80-100); Mean Platelet Volume 9.8 fl (7.4-10.4); Monocytes Absolute Auto 0.9 K/mm3 (0.1-0.6); Monocytes Percent Auto 7.2 % (2.6-8.5); Neutrophils Absolute Auto 10.4 K/mm3 (1.3-6.7); Platelet Count Result 301 k/mm3 (150-375); Red Blood Count 3.94 M/mm3 (4.6-6.20); Red Cell Distribution Width 11.5 % (11.5-14.5); White Blood Count 12.8 K/mm3 (4.5-10.0)
[2024-08-28 06:32] LABS: Anion Gap 4 mmol/L (4-12); Blood Urea Nitrogen 10 mg/dL (9-20); Calcium 8.2 mg/dL (8.4-10.2); Carbon Dioxide 31 mmol/L (22-30); Chloride 95 mmol/L (98-107); Estimated CRCL calculation 122 ml/min; Estimated Glomerular Filt Rate > 60; Glucose 171 mg/dL (65-110); Potassium 4.3 mmol/L (3.4-5.0); Sodium 130 mmol/L (137-145)
[2024-08-28] MEDS: SODIUM CHLORIDE 0.9% IV 1,000 ML 125 ML IV CONT (07:28)
[2024-08-28] MEDS: HYDROcodone/acetaminophen (*CRX) 5-325 MG TABLET 1 TAB PO (07:29)
[2024-08-28] MEDS: EMPAGLIFLOZIN 10 MG TABLET PO (07:29)
[2024-08-28] MEDS: MECLIZINE HCL 25 MG TABLET 50 MG PO ×2 (07:29→16:17)
[2024-08-28] MEDS: DOCUSATE SODIUM 100 MG CAPSULE PO ×2 (07:29→16:16)
[2024-08-28 07:45] LABS: Glucose Point of Care 156 mg/dl (65-105)
[2024-08-28] MEDS: SOD HYPOCHLORITE 1/4 STRENGTH 473 ML 1 APPLIC TOPICAL (09:30)
[2024-08-28 11:30] LABS: Glucose Point of Care 155 mg/dl (65-105)
--- NOTE | 2024-08-28 12:20 | PM.IMPN ---
Progress Note: A&P Assessment and Plan (1) Heel ulcer due to DM: Qualifiers: Diabetes mellitus type: type 2 Laterality: left Non-pressure ulcer stage: with necrosis of muscle Qualified Code(s): E11.621 - Type 2 diabetes mellitus with foot ulcer; L97.423 - Non-pressure chronic ulcer of left heel and midfoot with necrosis of muscle Code(s): E11.621 - Type 2 diabetes mellitus with foot ulcer; L97.409 - Non-pressure chronic ulcer of unspecified heel and midfoot with unspecified severity Status: Acute Assessment and Plan: MRI showed left calcaneus Orthopedics consulted Possible necrotizing fasciitis orthopedics notified Blood culture ordered NPO currently on meropenem and vancomycin (2) Hypertension: Qualifiers: Hypertension type: primary hypertension Qualified Code(s): I10 - Essential (primary) hypertension Code(s): I10 - Essential (primary) hypertension Status: Acute Assessment and Plan: Patient does not appear to be on antihypertensives Continue to monitor (3) Chronic systolic (congestive) heart failure: Code(s): I50.22 - Chronic systolic (congestive) heart failure Status: Acute Assessment and Plan: Euvolemic Monitor for fluid overload Patient on diuretics (4) CAD (coronary artery disease): Qualifiers: Coronary Disease-Associated Artery/Lesion type: grindstone artery [place] vs. transplanted heart: grindstone heart Associated angina: with stable angina Qualified Code(s): I25.118 - Atherosclerotic heart disease of grindstone coronary artery with other forms of angina pectoris Code(s): I25.10 - Atherosclerotic heart disease of grindstone coronary artery without angina pectoris Status: Acute Assessment and Plan: Continue Jardiance (5) Type 2 diabetes mellitus with hyperglycemia: Qualifiers: Diabetes mellitus senior care insulin use: with senior care use Qualified Code(s): E11.65 - Type 2 diabetes mellitus with hyperglycemia; Z79.4 - salvage determiner (current) use of insulin Code(s): E11.65 - Type 2 diabetes mellitus with hyperglycemia Status: Acute Assessment and Plan: Uncontrolled hemoglobin A1c 11.3 Hold home metformin NPO until orthopedic surgeons he is patient SSI and Lantus Plan DVT prophylaxis on Sq Lovenox Subjective Date/time seen: 08/28/24 12:20 Interval history: Comfortable at bedside Exam Narrative: General: well appearing, appears stated age. HEENT: normocephalic, atraumatic. Mucous membranes moist. EOMI, PERRLA, bilateral sclera anicteric, no conjunctival injection. Neck supple without JVD, lymphadenopathy, or bruit. Respiratory: clear to auscultation bilaterally. No rales/rhonchi/wheezes. Cardiovascular: Regular rate and rhythm, normal S1-S2 upon auscultation. No murmurs, rubs, or clicks. PMI is nondisplaced, capillary refill less than 3 second. Abdomen: Soft, round, no pulsatile masses, nondistended and nontender. No rebound, no guarding. No CVA tenderness, no hepatosplenomegaly. Bowel sounds present to all four quadrants. No high pitch or tinkling sounds, resonant to percussion. Extremities: No cyanosis, clubbing, or edema present. Pulses are palpable 2/2. r foot with dressing clean dry intact no erythema on lower extremity Neuro: Alert and orientated x 4. PERRLA. Cranial nerves 2-12 intact without focal deficit. Skin: Warm, dry, and intact, without rash, erythema, or lesion. Objective Data Vital Signs Vital Signs: Vital Signs - 24 hr 08/27/24 14:00 08/27/24 22:00 08/28/24 04:35 Temperature 98.2 F 98.7 F 97.8 F Pulse Rate 106 H 96 82 Respiratory Rate 22 H 20 20 Blood Pressure 145/79 H 143/75 H 148/73 H Pulse Oximetry 99 98 96 Oxygen Delivery 08/28/24 08:00 Temperature Pulse Rate Respiratory Rate Blood Pressure Pulse Oximetry Oxygen Delivery Room Air Intake/Output Intake/Output: Intake & Output 08/25/24 08/26/24 08/27/24 08/28/24 23:59 23:59 23:59 23:59 Intake Total 2280 1040 Output Total 400 Balance 1880 1040 Meds/Results Medications: Active Medications Generic Name Dose Route Start Last Admin Trade Name Freq PRN Reason Stop Dose Admin Acetaminophen 650 mg 08/27/24 15:34 Acetaminophen 325 Mg Tablet PO Q4H PRN Mild Pain (1-3) or Fever Hydrocodone Bitart/Acetaminophen 1 tab 08/27/24 15:34 08/28/24 07:29 Hydrocodone/Acetaminophen (*Crx) 5-325 Mg Tablet PO 1 tab Q4H PRN Administration Moderate Pain (4-6) Dextrose 12.5 gm 05/13/25 15:34 Dextrose 50% 25 Gm/50 Ml Syringe IV PUSH PRN PRN Hypoglycemia Protocol Docusate Sodium 100 mg 08/27/24 17:00 08/28/24 07:29 Docusate Sodium 100 Mg Capsule PO 100 mg BID RANDA Administration Empagliflozin 10 mg 08/28/24 09:00 08/28/24 07:29 Empagliflozin 10 Mg Tablet PO 10 mg DAILY RANDA Administration Glucagon 1 mg 08/27/24 15:34 Glucagon For Inj 1 Mg Vial IM PRN PRN Hypoglycemia Protocol Glucose 15 gm 08/27/24 15:34 Glucose Oral Gel 15 Gm Of Glucse In 37.5 Gm Tube PO PRN PRN Hypoglycemia Protocol Sodium Chloride 1,000 mls @ 125 mls/hr 08/27/24 12:45 08/28/24 07:31 Normal Saline Iv IV CONT Not Given .Q8H RANDA Vancomycin HCl 1,500 mg in 500 mls @ 250 mls/hr 08/27/24 13:00 08/28/24 03:16 Vancomycin 1,500 Mg/Ns 500 Ml IVPB Infused Q12H RANDA Infusion Meropenem 1 gm in 100 mls @ 200 mls/hr 08/27/24 14:00 08/28/24 06:18 IVPB Infused Q8H RANDA Infusion Dextrose 1,000 mls @ 100 mls/hr 08/27/24 15:34 Dextrose 5% 1,000 Ml IVPB PRN PRN Hypoglycemia Protocol Insulin Aspart 1 - 2 units 08/27/24 21:00 08/27/24 20:43 Insulin Aspart (*Bkc) 100 Units/Ml SUB-Q 1 units HS RANDA Administration Protocol Insulin Aspart 3 - 6 units 08/28/24 08:00 08/28/24 11:18 Insulin Aspart (*Bkc) 100 Units/Ml SUB-Q Not Given [facility] Protocol Insulin Glargine 12 units 08/27/24 21:00 08/27/24 20:44 Insulin Glargine (*Bkc) 100 Units/Ml 0.15 units/kg (12 units) 12 units SUB-Q [facility] Meclizine HCl 50 mg 08/27/24 18:30 08/28/24 07:29 Meclizine Hcl 25 Mg Tablet PO 50 mg BID RANDA Administration Sodium Hypochlorite 1 applic 08/27/24 10:00 08/28/24 09:30 Sod Hypochlorite 1/4 Strength 473 Ml TOPICAL 1 applic Q12HR RANDA Administration Radiology Results: ITS Impressions Ankle Brachial Index 08/27/24 11:25 IMPRESSION: Normal RANDAL. Foot X-Ray 08/27/24 11:31 IMPRESSION: 1. Soft tissue gas at the heel fat pad with likely related to an overlying skin ulceration. Differential for soft tissue gas includes necrotizing fasciitis which is ultimately a clinical diagnosis. No associated osteomyelitis. Findings were discussed with Keily Centeno, the nurse caring for the patient, at 11:37 AM. 2. Mild polyarticular osteoarthritis in the mid and forefoot with erosions at the heads of multiple proximal phalanges with displacement appearance most suggestive of gout. Foot MRI 08/28/24 11:37 IMPRESSION 1. Numerous foci of soft tissue gas localized to the heel fat pad surrounding a skin ulceration without abscess. 2. Marrow edema and enhancement along the underlying plantar/lateral margin of the posterior tuberosity of the calcaneus which could be reactive or due to early osteomyelitis although there is no definitive cortical erosion or geographic loss of T1 fat signal to more specifically suggest osteomyelitis. 3. Mild to moderate polyarticular osteoarthritis in the midfoot. 4. Chronic sprains of the deep deltoid ligament and anterior inferior tibiofibular ligament. Labs Labs: Laboratory Results - last 24 hr 08/27/24 08/27/24 08/27/24 14:49 16:22 18:22 WBC RBC Hgb Hct MCV MCH MCHC RDW Plt Count MPV Immature Gran % (Auto) Neut % (Auto) Lymph % (Auto) [place] % (Auto) Eos % (Auto) Baso % (Auto) Lymph # (Auto) [place] # (Auto) Eos # (Auto) Baso # (Auto) Abs Immat Gran (auto) Absolute Neuts (auto) Absolute Nucleated RBC Nucleated RBC % Sodium Potassium Chloride Carbon Dioxide Anion Gap BUN Creatinine Estim Creat Clear Calc Estimated GFR Glucose POC Capillary Glucose 251 H Lactic Acid 1.0 Calcium Urine Color Yellow Urine Appearance Clear Urine pH 6.0 Ur Specific [place] 1.036 H Urine Protein 1+ H Urine Glucose (UA) 3+ H Urine Ketones Trace H Ur Blood (Man) Negative Urine Nitrate Negative Urine Bilirubin Negative Urine Urobilinogen 1.0 Leukocyte Esterase Rfl Negative Urine RBC 0-2 Urine WBC 0-5 Ur Squamous Epith Cells None seen Urine Bacteria None seen Urine Casts 0-2 08/27/24 08/28/24 08/28/24 20:08 05:31 07:40 WBC 12.8 H RBC 3.94 L Hgb 11.8 L Hct 35.7 L MCV 90.6 MCH 29.9 MCHC 33.1 RDW 11.5 Plt Count 301 MPV 9.8 Immature Gran % (Auto) 0.6 H Neut % (Auto) 81.0 H Lymph % (Auto) 10.3 L [place] % (Auto) 7.2 Eos % (Auto) 0.6 Baso % (Auto) 0.3 Lymph # (Auto) 1.31 [place] # (Auto) 0.9 H Eos # (Auto) 0.1 Baso # (Auto) 0.0 Abs Immat Gran (auto) 0.08 H Absolute Neuts (auto) 10.4 H Absolute Nucleated RBC 0.000 Nucleated RBC % 0.0 Sodium 130 L Potassium 4.3 Chloride 95 L Carbon Dioxide 31 H Anion Gap 4 BUN 10 Creatinine 0.52 L Estim Creat Clear Calc 122 Estimated GFR > 60 Glucose 171 H POC Capillary Glucose 280 H 156 H Lactic Acid Calcium 8.2 L Urine Color Urine Appearance Urine pH Ur Specific [place] Urine Protein Urine Glucose (UA) Urine Ketones Ur Blood (Man) Urine Nitrate Urine Bilirubin Urine Urobilinogen Leukocyte Esterase Rfl Urine RBC Urine WBC Ur Squamous Epith Cells Urine Bacteria Urine Casts 08/28/24 11:11 WBC RBC Hgb Hct MCV MCH MCHC RDW Plt Count MPV Immature Gran % (Auto) Neut % (Auto) Lymph % (Auto) [place] % (Auto) Eos % (Auto) Baso % (Auto) Lymph # (Auto) [place] # (Auto) Eos # (Auto) Baso # (Auto) Abs Immat Gran (auto) Absolute Neuts (auto) Absolute Nucleated RBC Nucleated RBC % Sodium Potassium Chloride Carbon Dioxide Anion Gap BUN Creatinine Estim Creat Clear Calc Estimated GFR Glucose POC Capillary Glucose 155 H Lactic Acid Calcium Urine Color Urine Appearance Urine pH Ur Specific [place] Urine Protein Urine Glucose (UA) Urine Ketones Ur Blood (Man) Urine Nitrate Urine Bilirubin Urine Urobilinogen Leukocyte Esterase Rfl Urine RBC Urine WBC Ur Squamous Epith Cells Urine Bacteria Urine Casts Imaging My impression: MRI left foot IMPRESSION 1. Numerous foci of soft tissue gas localized to the heel fat pad surrounding a skin ulceration without abscess. 2. Marrow edema and enhancement along the underlying plantar/lateral margin of the posterior tuberosity of the calcaneus which could be reactive or due to early osteomyelitis although there is no definitive cortical erosion or geographic loss of T1 fat signal to more specifically suggest osteomyelitis. Quality VTE Prophylaxis VTE prophylaxis: mechanical ordered and pharmacologic ordered
[2024-08-28] MEDS: VANCOMYCIN 1,500 MG/NS 500 ML 1,500 MG/500 ML BAG 250 MG IVPB (12:38)
[2024-08-28 13:55] VITALS: BP 126/69; PULSE 91; RESP 18; TEMP 36.9; O2SAT 93
--- NOTE | 2024-08-28 14:33 | PM.PNORT ---
Progress Note: A&P Assessment and Plan (1) Heel ulcer due to DM: Qualifiers: Diabetes mellitus type: type 2 Laterality: left Non-pressure ulcer stage: with necrosis of muscle Qualified Code(s): E11.621 - Type 2 diabetes mellitus with foot ulcer; L97.423 - Non-pressure chronic ulcer of left heel and midfoot with necrosis of muscle Code(s): E11.621 - Type 2 diabetes mellitus with foot ulcer; L97.409 - Non-pressure chronic ulcer of unspecified heel and midfoot with unspecified severity Status: Acute Assessment and Plan: LEFT HEEL DIABTIC ULCER. MRI SHOWS NO SIGNIFICANT BONY EROSION TO SUSPECT OSTEOMYELITIS. RECOMMEND CONTINUE DRESSING CHANGES FOR NOW. HE WILL NEED DEBRIDEMENT. PLAN FOR THIS WEEK. Subjective Subjective Date/Time Seen: 08/28/24 14:33 Interval history: LEFT HEAL DECUBITUS ULCER. AND UNCONTROLLED DM. HE HAS NO PAIN, NO OTHER COMPLAINTS. Exam Extrem: Other: LEFT HEEL DECUBITUS WITH NECROTIC ESCHAR, FOUL SMELLING, NO PURULENCE, INSENSATE, NO SIGNIFICANT CELLULITIS. NO SIGNIFICANT SWELLING TO THE FOOT OR ANKLE ANKLE FULL MOTION NO PAIN, NO EFFUSION Objective Data Vital Signs Vital Signs: Vital Signs - 24 hr 08/27/24 22:00 08/28/24 04:35 08/28/24 08:00 Temperature 37.1 C 36.6 C Pulse Rate 96 82 Respiratory Rate 20 20 Blood Pressure 143/75 H 148/73 H Pulse Oximetry 98 96 Oxygen Delivery Room Air 08/28/24 13:55 Temperature 36.9 C Pulse Rate 91 Respiratory Rate 18 Blood Pressure 126/69 Pulse Oximetry 93 Oxygen Delivery Intake/Output Intake/Output: Intake & Output 08/25/24 08/26/24 08/27/24 08/28/24 23:59 23:59 23:59 23:59 Intake Total 2280 1280 Output Total 400 Balance 1880 1280 Meds/Results Medications: Active Medications Generic Name Dose Route Start Last Admin Trade Name Freq PRN Reason Stop Dose Admin Acetaminophen 650 mg 08/27/24 15:34 Acetaminophen 325 Mg Tablet PO Q4H PRN Mild Pain (1-3) or Fever Hydrocodone Bitart/Acetaminophen 1 tab 08/27/24 15:34 08/28/24 07:29 Hydrocodone/Acetaminophen (*Crx) 5-325 Mg Tablet PO 1 tab Q4H PRN Administration Moderate Pain (4-6) Dextrose 12.5 gm 08/27/24 15:34 Dextrose 50% 25 Gm/50 Ml Syringe IV PUSH PRN PRN Hypoglycemia Protocol Docusate Sodium 100 mg 08/27/24 17:00 08/28/24 07:29 Docusate Sodium 100 Mg Capsule PO 100 mg BID RANDA Administration Empagliflozin 10 mg 08/28/24 09:00 08/28/24 07:29 Empagliflozin 10 Mg Tablet PO 10 mg DAILY RANDA Administration Enoxaparin Sodium 40 mg 08/29/24 09:00 Enoxaparin 40 Mg/0.4 Ml Syringe SUB-Q DAILY RANDA Glucagon 1 mg 08/27/24 15:34 Glucagon For Inj 1 Mg Vial IM PRN PRN Hypoglycemia Protocol Glucose 15 gm 08/27/24 15:34 Glucose Oral Gel 15 Gm Of Glucse In 37.5 Gm Tube PO PRN PRN Hypoglycemia Protocol Sodium Chloride 1,000 mls @ 125 mls/hr 08/27/24 12:45 08/28/24 07:31 Normal Saline Iv IV CONT Not Given .Q8H RANDA Vancomycin HCl 1,500 mg in 500 mls @ 250 mls/hr 08/27/24 13:00 08/28/24 12:38 Vancomycin 1,500 Mg/Ns 500 Ml IVPB 250 mls/hr Q12H RANDA Administration Meropenem 1 gm in 100 mls @ 200 mls/hr 08/27/24 14:00 08/28/24 06:18 IVPB Infused Q8H RANDA Infusion Dextrose 1,000 mls @ 100 mls/hr 08/27/24 15:34 Dextrose 5% 1,000 Ml IVPB PRN PRN Hypoglycemia Protocol Insulin Aspart 1 - 2 units 08/27/24 21:00 08/27/24 20:43 Insulin Aspart (*Bkc) 100 Units/Ml SUB-Q 1 units HS RANDA Administration Protocol Insulin Aspart 3 - 6 units 08/28/24 08:00 08/28/24 11:18 Insulin Aspart (*Bkc) 100 Units/Ml SUB-Q Not Given [facility] Protocol Insulin Glargine 12 units 08/27/24 21:00 08/27/24 20:44 Insulin Glargine (*Bkc) 100 Units/Ml 0.15 units/kg (12 units) 12 units SUB-Q Administration [facility] Meclizine HCl 50 mg 08/27/24 18:30 08/28/24 07:29 Meclizine Hcl 25 Mg Tablet PO 50 mg BID RANDA Administration Sodium Hypochlorite 1 applic 08/27/24 10:00 08/28/24 09:30 Sod Hypochlorite 1/4 Strength 473 Ml TOPICAL 1 applic Q12HR RANDA Administration Radiology Results: ITS Impressions Ankle Brachial Index 08/27/24 11:25 IMPRESSION: Normal RANDAL. Foot X-Ray 08/27/24 11:31 IMPRESSION: 1. Soft tissue gas at the heel fat pad with likely related to an overlying skin ulceration. Differential for soft tissue gas includes necrotizing fasciitis which is ultimately a clinical diagnosis. No associated osteomyelitis. Findings were discussed with Keily Centeno, the nurse caring for the patient, at 11:37 AM. 2. Mild polyarticular osteoarthritis in the mid and forefoot with erosions at the heads of multiple proximal phalanges with displacement appearance most suggestive of gout. Foot MRI 08/28/24 11:37 IMPRESSION 1. Numerous foci of soft tissue gas localized to the heel fat pad surrounding a skin ulceration without abscess. 2. Marrow edema and enhancement along the underlying plantar/lateral margin of the posterior tuberosity of the calcaneus which could be reactive or due to early osteomyelitis although there is no definitive cortical erosion or geographic loss of T1 fat signal to more specifically suggest osteomyelitis. 3. Mild to moderate polyarticular osteoarthritis in the midfoot. 4. Chronic sprains of the deep deltoid ligament and anterior inferior tibiofibular ligament. Labs Labs: Laboratory Results - last 24 hr 08/27/24 08/27/24 08/27/24 14:49 16:22 18:22 WBC RBC Hgb Hct MCV MCH MCHC RDW Plt Count MPV Immature Gran % (Auto) Neut % (Auto) Lymph % (Auto) [place] % (Auto) Eos % (Auto) Baso % (Auto) Lymph # (Auto) [place] # (Auto) Eos # (Auto) Baso # (Auto) Abs Immat Gran (auto) Absolute Neuts (auto) Absolute Nucleated RBC Nucleated RBC % Sodium Potassium Chloride Carbon Dioxide Anion Gap BUN Creatinine Estim Creat Clear Calc Estimated GFR Glucose POC Capillary Glucose 251 H Lactic Acid 1.0 Calcium Urine Color Yellow Urine Appearance Clear Urine pH 6.0 Ur Specific [place] 1.036 H Urine Protein 1+ H Urine Glucose (UA) 3+ H Urine Ketones Trace H Ur Blood (Man) Negative Urine Nitrate Negative Urine Bilirubin Negative Urine Urobilinogen 1.0 Leukocyte Esterase Rfl Negative Urine RBC 0-2 Urine WBC 0-5 Ur Squamous Epith Cells None seen Urine Bacteria None seen Urine Casts 0-2 08/27/24 08/28/24 08/28/24 20:08 05:31 07:40 WBC 12.8 H RBC 3.94 L Hgb 11.8 L Hct 35.7 L MCV 90.6 MCH 29.9 MCHC 33.1 RDW 11.5 Plt Count 301 MPV 9.8 Immature Gran % (Auto) 0.6 H Neut % (Auto) 81.0 H Lymph % (Auto) 10.3 L [place] % (Auto) 7.2 Eos % (Auto) 0.6 Baso % (Auto) 0.3 Lymph # (Auto) 1.31 [place] # (Auto) 0.9 H Eos # (Auto) 0.1 Baso # (Auto) 0.0 Abs Immat Gran (auto) 0.08 H Absolute Neuts (auto) 10.4 H Absolute Nucleated RBC 0.000 Nucleated RBC % 0.0 Sodium 130 L Potassium 4.3 Chloride 95 L Carbon Dioxide 31 H Anion Gap 4 BUN 10 Creatinine 0.52 L Estim Creat Clear Calc 122 Estimated GFR > 60 Glucose 171 H POC Capillary Glucose 280 H 156 H Lactic Acid Calcium 8.2 L Urine Color Urine Appearance Urine pH Ur Specific [place] Urine Protein Urine Glucose (UA) Urine Ketones Ur Blood (Man) Urine Nitrate Urine Bilirubin Urine Urobilinogen Leukocyte Esterase Rfl Urine RBC Urine WBC Ur Squamous Epith Cells Urine Bacteria Urine Casts 08/28/24 11:11 WBC RBC Hgb Hct MCV MCH MCHC RDW Plt Count MPV Immature Gran % (Auto) Neut % (Auto) Lymph % (Auto) [place] % (Auto) Eos % (Auto) Baso % (Auto) Lymph # (Auto) [place] # (Auto) Eos # (Auto) Baso # (Auto) Abs Immat Gran (auto) Absolute Neuts (auto) Absolute Nucleated RBC Nucleated RBC % Sodium Potassium Chloride Carbon Dioxide Anion Gap BUN Creatinine Estim Creat Clear Calc Estimated GFR Glucose POC Capillary Glucose 155 H Lactic Acid Calcium Urine Color Urine Appearance Urine pH Ur Specific [place] Urine Protein Urine Glucose (UA) Urine Ketones Ur Blood (Man) Urine Nitrate Urine Bilirubin Urine Urobilinogen Leukocyte Esterase Rfl Urine RBC Urine WBC Ur Squamous Epith Cells Urine Bacteria Urine Casts
[2024-08-28 16:19] LABS: Glucose Point of Care 146 mg/dl (65-105)
[2024-08-28 17:15] VITALS: BMI 23.3
[2024-08-28 20:15] VITALS: BP 149/76; PULSE 66; RESP 18; TEMP 36.6; O2SAT 95
[2024-08-28] MEDS: INSULIN GLARGINE (*BKC) 100 UNITS/ML 12 UNITS SUB-Q (20:29)
[2024-08-28 20:42] LABS: Glucose Point of Care 171 mg/dl (65-105)
[2024-08-28] MEDS: ACETAMINOPHEN 325 MG TABLET 650 MG PO (22:31)
[2024-08-29 00:43] LABS: Vancomycin Trough 9.1 ug/mL (10.0-20.0)
[2024-08-29] MEDS: VANCOMYCIN 1,750 MG/NS 500 ML 1,750 MG/500 ML BAG 250 MG IVPB ×3 (01:16→16:29)
[2024-08-29] MEDS: HYDROcodone/acetaminophen (*CRX) 5-325 MG TABLET 1 TAB PO ×3 (01:22→21:55)
[2024-08-29 04:50] VITALS: BP 158/78; PULSE 102; RESP 20; TEMP 36.4; O2SAT 98
[2024-08-29] MEDS: MEROPENEM 1 GM/NS 100 ML 1 GM/100 ML BAG IVPB ×3 (05:12→21:26)
[2024-08-29 06:29] LABS: Basophils Percent Auto 0.3 % (0.2-1.2); Eosinophils Absolute Auto 0.1 K/mm3 (0-0.3); Eosinophils Percent Auto 0.7 % (0-4.4); Hematocrit 37.3 % (42.0-52.0); Hemoglobin 12.3 g/dL (14.0-18.0); Immature Granulocyte Absolute 0.07 K/mm3 (0.00-0.031); Immature Granulocyte Percent A 0.5 % (0-0.5); Lymphocytes Absolute Auto 1.21 K/mm3 (0.9-3.2); Lymphocytes Percent Auto 8.8 % (18.3-44.2); Mean Corpuscular Hemoglobin 29.6 pg (26-34); Mean Corpuscular Volume 89.9 fl (80-100); Mean Platelet Volume 9.6 fl (7.4-10.4); Monocytes Absolute Auto 1.1 K/mm3 (0.1-0.6); Monocytes Percent Auto 8.3 % (2.6-8.5); Neutrophils Absolute Auto 11.2 K/mm3 (1.3-6.7); Neutrophils Percent Auto 81.4 % (45.5-73.1); Platelet Count Result 331 k/mm3 (150-375); Red Blood Count 4.15 M/mm3 (4.6-6.20); Red Cell Distribution Width 11.5 % (11.5-14.5); White Blood Count 13.8 K/mm3 (4.5-10.0)
[2024-08-29 06:39] LABS: Alanine Aminotransferase 11 U/L (6-50); Albumin Level 3.4 g/dL (3.5-5.1); Alkaline Phosphatase 86 U/L (38-126); Anion Gap 6 mmol/L (4-12); Aspartate Amino Transferase 20 U/L (17-59); Bilirubin,Total 0.9 mg/dL (0.2-1.3); Blood Urea Nitrogen 10 mg/dL (9-20); Calcium 8.6 mg/dL (8.4-10.2); Carbon Dioxide 32 mmol/L (22-30); Chloride 96 mmol/L (98-107); Estimated CRCL calculation 112 ml/min; Estimated Glomerular Filt Rate > 60; Glucose 80 mg/dL (65-110); Magnesium 1.8 mg/dL (1.6-2.3); Potassium 4.1 mmol/L (3.4-5.0); Sodium 134 mmol/L (137-145)
[2024-08-29 07:33] LABS: Glucose Point of Care 71 mg/dl (65-105)
[2024-08-29] MEDS: SODIUM CHLORIDE 0.9% IV 1,000 ML 125 ML IV CONT (09:13)
[2024-08-29] MEDS: EMPAGLIFLOZIN 10 MG TABLET PO (09:14)
[2024-08-29] MEDS: MECLIZINE HCL 25 MG TABLET 50 MG PO ×2 (09:14→16:29)
[2024-08-29] MEDS: ENOXAPARIN 40 MG/0.4 ML SYRINGE SUB-Q (09:14)
[2024-08-29] MEDS: DOCUSATE SODIUM 100 MG CAPSULE PO ×2 (09:14→16:29)
[2024-08-29] MEDS: SOD HYPOCHLORITE 1/4 STRENGTH 473 ML 1 APPLIC TOPICAL ×2 (09:35→21:21)
--- NOTE | 2024-08-29 10:49 | PM.PNORT ---
Progress Note: A&P Assessment and Plan (1) Heel ulcer due to DM: Qualifiers: Diabetes mellitus type: type 2 Laterality: left Non-pressure ulcer stage: with necrosis of muscle Qualified Code(s): E11.621 - Type 2 diabetes mellitus with foot ulcer; L97.423 - Non-pressure chronic ulcer of left heel and midfoot with necrosis of muscle Code(s): E11.621 - Type 2 diabetes mellitus with foot ulcer; L97.409 - Non-pressure chronic ulcer of unspecified heel and midfoot with unspecified severity Status: Acute Assessment and Plan: ABIs normal. Radiographs of the left foot reveal soft tissue gas at the heel fat pad, likely related to an overlying skin ulceration. Differential for soft tissue gas includes necrotizing fasciitis. Mild polyarticular osteoarthritis in the mid and forefoot with erosions at the heads of multiple proximal phalanges with displacement appearance most suggestive of gout. MRI with evidence of possible early osteomyelitis. Blood cultures with NGTD. Wound cultures pending. Patient continues to endorse left heel pain. Patient is able to flex and extend the left foot without severe pain. No significant calf pain or tenderness. Erythema does not extend outside of the surrounding tissue of the heel ulcer. Erythema marked for continued evaluation. No crepitus or purulent drainage. Condition, nature, etiology and course of natural history discussed. Conservative and operative treatment options reviewed as well as the risks and benefits of both. Recommended surgical debridement and wound VAC application. Risks of surgery including but not limited to neurovascular damage, wound complications, blood clot, pulmonary embolus, stroke, myocardial infarction, anesthetic risks up to and including were reviewed. Continued pain and possible dysfunction were explained. No guarantees were offered. The patient understands and wishes to proceed. Plan: Left DFU debridement with wound VAC application by Dr. Lam Obtain Consent. NPO at midnight. Await Culture Results. Possible need for assistant terminal manager IV antibiotics. (2) Diabetic ulcer of right foot: Qualifiers: Diabetes mellitus type: type 2 Diabetic foot ulcer location: other Non-pressure ulcer stage: with necrosis of muscle Qualified Code(s): E11.621 - Type 2 diabetes mellitus with foot ulcer; L97.513 - Non-pressure chronic ulcer of other part of right foot with necrosis of muscle Code(s): E11.621 - Type 2 diabetes mellitus with foot ulcer; L97.519 - Non-pressure chronic ulcer of other part of right foot with unspecified severity Status: Inactive Assessment and Plan: Follow up of right DFU. Patient with a history of peripheral neuropathy and type 2 diabetes, uncontrolled with most recent HgB A1C in November of 12%. History of previous infection with osteo right foot. Previous radiographs show deformity of the 3rd and 4th MTP joints now with extension deformity of the toes and increased plantar pressure of the forefoot. Wound with improvement in comparison to previous. Abundant callus formation. No signs of infection. (3) Peripheral sensory neuropathy due to type 2 diabetes mellitus: Code(s): E11.42 - Type 2 diabetes mellitus with diabetic polyneuropathy Status: Acute (4) Type 2 diabetes mellitus with hyperglycemia: Qualifiers: Diabetes mellitus assistant terminal manager insulin use: with halfway use Qualified Code(s): E11.65 - Type 2 diabetes mellitus with hyperglycemia; Z79.4 - superintendent terminal (current) use of insulin Code(s): E11.65 - Type 2 diabetes mellitus with hyperglycemia Status: Acute Assessment and Plan: Uncontrolled DM. HgB A1C >11%. Need diabetic nurse educator counseling with family present. Close diabetic control. Defer to medicine team. Plan Reviewed history, exam, radiographs and current labs with attending MD and covering surgeon, Dr. Lam, who agrees with current plan as indicated above. No further recommendations from Dr. Lam at this time. Subjective Subjective Date/Time Seen: 08/29/24 10:49 Interval history: Patient still with complaints of left heel pain. Overall, feeling fine. Review of Systems Review of Systems: All systems reviewed & are unremarkable except as noted in HPI and below Exam Const: General: healthy appearing; No in distress or confusion Orientation/consciousness: oriented to person, oriented to place, oriented to time and No confusion HENMT: Head: normal to inspection, normocephalic and atraumatic Eyes: Conjunctivae: conjunctivae normal Sclera: sclerae normal Neck: Neck: supple and nontender Resp: Effort & Inspection: normal respiratory effort and no audible wheezes Cardio: Rhythm: regular rhythm Skin: General skin exam: no rashes or lesions noted Neuro: General: oriented to person, oriented to place, oriented to time and No confusion Extrem: Right upper extremity: normal to inspection Left upper extremity: normal to inspection Right lower extremity: ankle Details: normal to inspection, abnormal ROM Details: with range as follows (ankle dorsiflexion -10 degrees, plantar flexion 40?, inversion 15?, eversion 15?) and other ( good stability all directions); no tenderness, no swelling and no ecchymosis and foot Details: abnormal to inspection ( extension deformity of the 3rd and 4th toe) Details: other ( 1 x 1 cm ulcer plantar forefoot under the 4th metatarsal head surrounding callus. No surrounding erythema. No drainage.), abnormal ROM of toe ( hallux MTP dorsiflexion 40, plantar flexion 20?), vascular exam Details: dorsalis pedis pulse present (decreased, faintly palpable ) and normal capillary refill, tendon exam Details: active flexion abnormal and active extension abnormal, motor-sensory exam Details: two point discrimination abnormal Location: in all toes and light-touch abnormal Location: in all toes and other (Hallux metatarsophalangeal motion 20? dorsiflexion/10? plantar flexion) Left lower extremity: ankle Details: normal to inspection and abnormal ROM Details: with range as follows (ankle dorsiflexion -10 degrees, plantar flexion 40?, inversion 15?, eversion 15?); no tenderness and no swelling and foot Details: normal capillary refill, tenderness, abnormal ROM of toe, warmth, edema, vascular exam (2+DP pulse, good cap refill all toes), tendon exam active flexion abnormal of the great toe and active extension abnormal of the great toe and motor-sensory exam two point discrimination abnormal and light-touch abnormal in all toes; no crepitus Other: Wound on the plantar aspect of the right 4th MTP joint measures 0.8x1.0x0.3 cm. 100% red/pink wound bed. No signs of active infection. Wound on the calcaneus of the left heel measures 8x12cm, 80% yellow/villarreal, 20% pink. No depth determined due to necrotic tissue. Malodorous. Psych: Affect: normal affect Objective Data Vital Signs Vital Signs: Vital Signs - 24 hr 08/28/24 13:55 08/28/24 20:15 08/29/24 04:50 Temperature 36.9 C 36.6 C 36.4 C Pulse Rate 91 66 102 H Respiratory Rate 18 18 20 Blood Pressure 126/69 149/76 H 158/78 H Pulse Oximetry 93 95 98 Intake/Output Intake/Output: Intake & Output 08/26/24 08/27/24 08/28/24 08/29/24 23:59 23:59 23:59 23:59 Intake Total 2280 3220 1290 Output Total 400 600 Balance 1880 2620 1290 Meds/Results Medications: Active Medications Generic Name Dose Route Start Last Admin Trade Name Freq PRN Reason Stop Dose Admin Acetaminophen 650 mg 08/27/24 15:34 08/28/24 22:31 Acetaminophen 325 Mg Tablet PO 650 mg Q4H PRN Administration Mild Pain (1-3) or Fever Hydrocodone Bitart/Acetaminophen 1 tab 08/27/24 15:34 08/29/24 09:13 Hydrocodone/Acetaminophen (*Crx) 5-325 Mg Tablet PO 1 tab Q4H PRN Administration Moderate Pain (4-6) Dextrose 12.5 gm 08/27/24 15:34 Dextrose 50% 25 Gm/50 Ml Syringe IV PUSH PRN PRN Hypoglycemia Protocol Docusate Sodium 100 mg 08/27/24 17:00 08/29/24 09:14 Docusate Sodium 100 Mg Capsule PO 100 mg BID RNADA Administration Empagliflozin 10 mg 08/28/24 09:00 08/29/24 09:14 Empagliflozin 10 Mg Tablet PO 10 mg DAILY RANDA Administration Enoxaparin Sodium 40 mg 08/29/24 09:00 08/29/24 09:14 Enoxaparin 40 Mg/0.4 Ml Syringe SUB-Q 40 mg DAILY RANDA Administration Glucagon 1 mg 08/27/24 15:34 Glucagon For Inj 1 Mg Vial IM PRN PRN Hypoglycemia Protocol Glucose 15 gm 08/27/24 15:34 Glucose Oral Gel 15 Gm Of Glucse In 37.5 Gm Tube PO PRN PRN Hypoglycemia Protocol Sodium Chloride 1,000 mls @ 125 mls/hr 08/27/24 12:45 08/29/24 09:14 Normal Saline Iv IV CONT Not Given .Q8H RANDA Meropenem 1 gm in 100 mls @ 200 mls/hr 08/27/24 14:00 08/29/24 05:45 IVPB Infused Q8H RANDA Infusion Dextrose 1,000 mls @ 100 mls/hr 08/27/24 15:34 Dextrose 5% 1,000 Ml IVPB PRN PRN Hypoglycemia Protocol Vancomycin HCl 1,750 mg in 500 mls @ 250 mls/hr 08/29/24 01:00 08/29/24 09:15 Vancomycin 1,750 Mg/Ns 500 Ml IVPB 250 mls/hr Q8H RANDA Administration Insulin Aspart 1 - 2 units 08/27/24 21:00 08/28/24 20:27 Insulin Aspart (*Bkc) 100 Units/Ml SUB-Q Not Given [facility] Protocol Insulin Aspart 3 - 6 units 08/28/24 08:00 08/29/24 08:19 Insulin Aspart (*Bkc) 100 Units/Ml SUB-Q Not Given [facility] Protocol Insulin Glargine 12 units 08/27/24 21:00 08/28/24 20:29 Insulin Glargine (*Bkc) 100 Units/Ml 0.15 units/kg (12 units) 12 units SUB-Q Administration [facility] Meclizine HCl 50 mg 08/27/24 18:30 08/29/24 09:14 Meclizine Hcl 25 Mg Tablet PO 50 mg BID RANDA Administration Sodium Hypochlorite 1 applic 08/27/24 10:00 08/29/24 09:35 Sod Hypochlorite 1/4 Strength 473 Ml TOPICAL 1 applic Q12HR RANDA Administration Radiology Results: ITS Impressions Ankle Brachial Index 08/27/24 11:25 IMPRESSION: Normal RANDAL. Foot X-Ray 08/27/24 11:31 IMPRESSION: 1. Soft tissue gas at the heel fat pad with likely related to an overlying skin ulceration. Differential for soft tissue gas includes necrotizing fasciitis which is ultimately a clinical diagnosis. No associated osteomyelitis. Findings were discussed with Keily Centeno, the nurse caring for the patient, at 11:37 AM. 2. Mild polyarticular osteoarthritis in the mid and forefoot with erosions at the heads of multiple proximal phalanges with displacement appearance most suggestive of gout. Foot MRI 08/28/24 11:37 IMPRESSION 1. Numerous foci of soft tissue gas localized to the heel fat pad surrounding a skin ulceration without abscess. 2. Marrow edema and enhancement along the underlying plantar/lateral margin of the posterior tuberosity of the calcaneus which could be reactive or due to early osteomyelitis although there is no definitive cortical erosion or geographic loss of T1 fat signal to more specifically suggest osteomyelitis. 3. Mild to moderate polyarticular osteoarthritis in the midfoot. 4. Chronic sprains of the deep deltoid ligament and anterior inferior tibiofibular ligament. Labs Labs: Laboratory Results - last 24 hr 08/28/24 08/28/24 08/28/24 11:11 16:09 20:18 WBC RBC Hgb Hct MCV MCH MCHC RDW Plt Count MPV Immature Gran % (Auto) Neut % (Auto) Lymph % (Auto) [place] % (Auto) Eos % (Auto) Baso % (Auto) Lymph # (Auto) [place] # (Auto) Eos # (Auto) Baso # (Auto) Abs Immat Gran (auto) Absolute Neuts (auto) Absolute Nucleated RBC Nucleated RBC % Sodium Potassium Chloride Carbon Dioxide Anion Gap BUN Creatinine Estim Creat Clear Calc Estimated GFR Glucose POC Capillary Glucose 155 H 146 H 171 H Calcium Magnesium Total Bilirubin AST ALT Alkaline Phosphatase Total Protein Albumin Vancomycin Trough 08/29/24 08/29/24 08/29/24 00:11 06:08 07:30 WBC 13.8 H RBC 4.15 L Hgb 12.3 L Hct 37.3 L MCV 89.9 MCH 29.6 MCHC 33.0 RDW 11.5 Plt Count 331 MPV 9.6 Immature Gran % (Auto) 0.5 Neut % (Auto) 81.4 H Lymph % (Auto) 8.8 L [place] % (Auto) 8.3 Eos % (Auto) 0.7 Baso % (Auto) 0.3 Lymph # (Auto) 1.21 [place] # (Auto) 1.1 H Eos # (Auto) 0.1 Baso # (Auto) 0.0 Abs Immat Gran (auto) 0.07 H Absolute Neuts (auto) 11.2 H Absolute Nucleated RBC 0.000 Nucleated RBC % 0.0 Sodium 134 L Potassium 4.1 Chloride 96 L Carbon Dioxide 32 H Anion Gap 6 BUN 10 Creatinine 0.57 L Estim Creat Clear Calc 112 Estimated GFR > 60 Glucose 80 POC Capillary Glucose 71 Calcium 8.6 Magnesium 1.8 Total Bilirubin 0.9 AST 20 ALT 11 Alkaline Phosphatase 86 Total Protein 7.0 Albumin 3.4 L Vancomycin Trough 9.1 L
[2024-08-29 11:31] LABS: Glucose Point of Care 131 mg/dl (65-105)
[2024-08-29] MEDS: lisinopriL 5 MG TABLET PO (13:23)
--- NOTE | 2024-08-29 13:39 | PM.IMPN ---
Progress Note: A&P Assessment and Plan (1) Heel ulcer due to DM: Qualifiers: Diabetes mellitus type: type 2 Laterality: left Non-pressure ulcer stage: with necrosis of muscle Qualified Code(s): E11.621 - Type 2 diabetes mellitus with foot ulcer; L97.423 - Non-pressure chronic ulcer of left heel and midfoot with necrosis of muscle Code(s): E11.621 - Type 2 diabetes mellitus with foot ulcer; L97.409 - Non-pressure chronic ulcer of unspecified heel and midfoot with unspecified severity Status: Acute Assessment and Plan: MRI showed left calcaneus early osteomyelitis Blood culture on meropenem and vancomycin For I and D, later this week per ortho (2) Hypertension: Qualifiers: Hypertension type: primary hypertension Qualified Code(s): I10 - Essential (primary) hypertension Code(s): I10 - Essential (primary) hypertension Status: Acute Assessment and Plan: Patient does not appear to be on antihypertensives Continue to monitor (3) Chronic systolic (congestive) heart failure: Code(s): I50.22 - Chronic systolic (congestive) heart failure Status: Acute Assessment and Plan: Euvolemic Monitor for fluid overload Patient on diuretics (4) CAD (coronary artery disease): Qualifiers: Coronary Disease-Associated Artery/Lesion type: [place] artery [place] vs. transplanted heart: [place] heart Associated angina: with stable angina Qualified Code(s): I25.118 - Atherosclerotic heart disease of [place] coronary artery with other forms of angina pectoris Code(s): I25.10 - Atherosclerotic heart disease of [place] coronary artery without angina pectoris Status: Acute Assessment and Plan: Continue Jardiance (5) Type 2 diabetes mellitus with hyperglycemia: Qualifiers: Diabetes mellitus academic services professional insulin use: with academic services professional use Qualified Code(s): E11.65 - Type 2 diabetes mellitus with hyperglycemia; Z79.4 - senior care (current) use of insulin Code(s): E11.65 - Type 2 diabetes mellitus with hyperglycemia Status: Acute Assessment and Plan: Uncontrolled hemoglobin A1c 11.3 Hold home metformin SSI and Lantus Plan DVT prophylaxis on Sq Lovenox Subjective Date/time seen: 08/29/24 13:39 Interval history: Patient still with complaints of left heel pain. Overall, feeling fine. Review of Systems Review of Systems: General: well appearing, appears stated age. HEENT: normocephalic, atraumatic. Mucous membranes moist. EOMI, PERRLA, bilateral sclera anicteric, no conjunctival injection. Neck supple without JVD, lymphadenopathy, or bruit. Respiratory: clear to ascultation bilaterally. No rales/rhonic/wheezes. Cardiovascular: Regular rate and rhythm, normal S1-S2 upon ascultation. No murmurs, rubs, or clicks. PMI is nondisplaced, capillary refill less than 3 second. Abdomen: Soft, round, no pulsatile masses, nondistended and nontender. No rebound, no guarding. No CVA tenderness, no hepatosplenomegaly. Bowel sounds present to all four quadrants. No high pitch or tinkling sounds, resonant to percussion. Extremities: No cyanosis, clubbing, or edema present. Pulses are palpable 2/2. Active ROM to all four extremities. Neuro: Alert and orientated x 4. PERRLA. Cranial nerves 2-12 intact without focal deficit. Skin: Warm, dry, and intact, without rash, erythema, or lesion. Psych: pleasant, cooperative, normal speech, normal affect, no hallucinations, no dysarthia Exam Narrative: General: well appearing, appears stated age. HEENT: normocephalic, atraumatic. Mucous membranes moist. EOMI, PERRLA, bilateral sclera anicteric, no conjunctival injection. Neck supple without JVD, lymphadenopathy, or bruit. Respiratory: clear to auscultation bilaterally. No rales/rhonchi/wheezes. Cardiovascular: Regular rate and rhythm, normal S1-S2 upon auscultation. No murmurs, rubs, or clicks. PMI is nondisplaced, capillary refill less than 3 second. Abdomen: Soft, round, no pulsatile masses, nondistended and nontender. No rebound, no guarding. No CVA tenderness, no hepatosplenomegaly. Bowel sounds present to all four quadrants. No high pitch or tinkling sounds, resonant to percussion. Extremities: No cyanosis, clubbing, or edema present. Pulses are palpable 2/2. r foot with dressing clean dry intact no erythema on lower extremity Neuro: Alert and orientated x 4. PERRLA. Cranial nerves 2-12 intact without focal deficit. Skin: Warm, dry, and intact, without rash, erythema, or lesion. Objective Data Vital Signs Vital Signs: Vital Signs - 24 hr 08/28/24 13:55 08/28/24 20:15 08/29/24 04:50 Temperature 98.4 F 97.9 F 97.6 F Pulse Rate 91 66 102 H Respiratory Rate 18 18 20 Blood Pressure 126/69 149/76 H 158/78 H Pulse Oximetry 93 95 98 Oxygen Delivery 08/29/24 09:15 Temperature Pulse Rate Respiratory Rate Blood Pressure Pulse Oximetry Oxygen Delivery Room Air Intake/Output Intake/Output: Intake & Output 08/26/24 08/27/24 08/28/24 08/29/24 23:59 23:59 23:59 23:59 Intake Total 2280 3220 1530 Output Total 400 600 Balance 1880 2620 1530 Meds/Results Medications: Active Medications Generic Name Dose Route Start Last Admin Trade Name Freq PRN Reason Stop Dose Admin Acetaminophen 650 mg 08/27/24 15:34 08/28/24 22:31 Acetaminophen 325 Mg Tablet PO 650 mg Q4H PRN Administration Mild Pain (1-3) or Fever Hydrocodone Bitart/Acetaminophen 1 tab 08/27/24 15:34 08/29/24 09:13 Hydrocodone/Acetaminophen (*Crx) 5-325 Mg Tablet PO 1 tab Q4H PRN Administration Moderate Pain (4-6) Dextrose 12.5 gm 08/27/24 15:34 Dextrose 50% 25 Gm/50 Ml Syringe IV PUSH PRN PRN Hypoglycemia Protocol Docusate Sodium 100 mg 08/27/24 17:00 08/29/24 09:14 Docusate Sodium 100 Mg Capsule PO 100 mg BID RANDA Administration Empagliflozin 10 mg 08/28/24 09:00 08/29/24 09:14 Empagliflozin 10 Mg Tablet PO 10 mg DAILY RANDA Administration Enoxaparin Sodium 40 mg 08/29/24 09:00 08/29/24 09:14 Enoxaparin 40 Mg/0.4 Ml Syringe SUB-Q 40 mg DAILY RANDA Administration Glucagon 1 mg 08/27/24 15:34 Glucagon For Inj 1 Mg Vial IM PRN PRN Hypoglycemia Protocol Glucose 15 gm 08/27/24 15:34 Glucose Oral Gel 15 Gm Of Glucse In 37.5 Gm Tube PO PRN PRN Hypoglycemia Protocol Meropenem 1 gm in 100 mls @ 200 mls/hr 08/27/24 14:00 08/29/24 13:22 IVPB 200 mls/hr Q8H RANDA Administration Dextrose 1,000 mls @ 100 mls/hr 08/27/24 15:34 Dextrose 5% 1,000 Ml IVPB PRN PRN Hypoglycemia Protocol Vancomycin HCl 1,750 mg in 500 mls @ 250 mls/hr 08/29/24 01:00 08/29/24 09:15 Vancomycin 1,750 Mg/Ns 500 Ml IVPB 250 mls/hr Q8H RANDA Administration Insulin Aspart 1 - 2 units 08/27/24 21:00 08/28/24 20:27 Insulin Aspart (*Bkc) 100 Units/Ml SUB-Q Not Given HS RANDA Protocol Insulin Aspart 3 - 6 units 08/28/24 08:00 08/29/24 11:32 Insulin Aspart (*Bkc) 100 Units/Ml SUB-Q Not Given [facility] Protocol Insulin Glargine 12 units 08/27/24 21:00 08/28/24 20:29 Insulin Glargine (*Bkc) 100 Units/Ml 0.15 units/kg (12 units) 12 units SUB-Q Administration HS RANDA Lisinopril 5 mg 08/29/24 11:05 08/29/24 13:23 Lisinopril 5 Mg Tablet PO 5 mg QAM RANDA Administration Meclizine HCl 50 mg 08/27/24 18:30 08/29/24 09:14 Meclizine Hcl 25 Mg Tablet PO 50 mg BID RANDA Administration Sodium Hypochlorite 1 applic 08/27/24 10:00 08/29/24 09:35 Sod Hypochlorite 1/4 Strength 473 Ml TOPICAL 1 applic Q12HR RANDA Administration Radiology Results: ITS Impressions Ankle Brachial Index 08/27/24 11:25 IMPRESSION: Normal RANDAL. Foot X-Ray 08/27/24 11:31 IMPRESSION: 1. Soft tissue gas at the heel fat pad with likely related to an overlying skin ulceration. Differential for soft tissue gas includes necrotizing fasciitis which is ultimately a clinical diagnosis. No associated osteomyelitis. Findings were discussed with Keily Centeno, the nurse caring for the patient, at 11:37 AM. 2. Mild polyarticular osteoarthritis in the mid and forefoot with erosions at the heads of multiple proximal phalanges with displacement appearance most suggestive of gout. Foot MRI 08/28/24 11:37 IMPRESSION 1. Numerous foci of soft tissue gas localized to the heel fat pad surrounding a skin ulceration without abscess. 2. Marrow edema and enhancement along the underlying plantar/lateral margin of the posterior tuberosity of the calcaneus which could be reactive or due to early osteomyelitis although there is no definitive cortical erosion or geographic loss of T1 fat signal to more specifically suggest osteomyelitis. 3. Mild to moderate polyarticular osteoarthritis in the midfoot. 4. Chronic sprains of the deep deltoid ligament and anterior inferior tibiofibular ligament. Labs Labs: Laboratory Results - last 24 hr 08/28/24 08/28/24 08/29/24 16:09 20:18 00:11 WBC RBC Hgb Hct MCV MCH MCHC RDW Plt Count MPV Immature Gran % (Auto) Neut % (Auto) Lymph % (Auto) [place] % (Auto) Eos % (Auto) Baso % (Auto) Lymph # (Auto) [place] # (Auto) Eos # (Auto) Baso # (Auto) Abs Immat Gran (auto) Absolute Neuts (auto) Absolute Nucleated RBC Nucleated RBC % Sodium Potassium Chloride Carbon Dioxide Anion Gap BUN Creatinine Estim Creat Clear Calc Estimated GFR Glucose POC Capillary Glucose 146 H 171 H Calcium Magnesium Total Bilirubin AST ALT Alkaline Phosphatase Total Protein Albumin Vancomycin Trough 9.1 L 08/29/24 08/29/24 08/29/24 06:08 07:30 11:26 WBC 13.8 H RBC 4.15 L Hgb 12.3 L Hct 37.3 L MCV 89.9 MCH 29.6 MCHC 33.0 RDW 11.5 Plt Count 331 MPV 9.6 Immature Gran % (Auto) 0.5 Neut % (Auto) 81.4 H Lymph % (Auto) 8.8 L [place] % (Auto) 8.3 Eos % (Auto) 0.7 Baso % (Auto) 0.3 Lymph # (Auto) 1.21 [place] # (Auto) 1.1 H Eos # (Auto) 0.1 Baso # (Auto) 0.0 Abs Immat Gran (auto) 0.07 H Absolute Neuts (auto) 11.2 H Absolute Nucleated RBC 0.000 Nucleated RBC % 0.0 Sodium 134 L Potassium 4.1 Chloride 96 L Carbon Dioxide 32 H Anion Gap 6 BUN 10 Creatinine 0.57 L Estim Creat Clear Calc 112 Estimated GFR > 60 Glucose 80 POC Capillary Glucose 71 131 H Calcium 8.6 Magnesium 1.8 Total Bilirubin 0.9 AST 20 ALT 11 Alkaline Phosphatase 86 Total Protein 7.0 Albumin 3.4 L Vancomycin Trough Quality VTE Prophylaxis VTE prophylaxis: mechanical ordered and pharmacologic ordered
[2024-08-29 13:55] VITALS: BP 135/76; PULSE 88; RESP 20; TEMP 36.4; O2SAT 94
[2024-08-29 16:24] LABS: Glucose Point of Care 110 mg/dl (65-105)
[2024-08-29 20:15] VITALS: BP 135/83; PULSE 86; RESP 18; TEMP 36.9; O2SAT 98
[2024-08-29] MEDS: INSULIN GLARGINE (*BKC) 100 UNITS/ML 12 UNITS SUB-Q (21:20)
[2024-08-29 21:36] LABS: Glucose Point of Care 102 mg/dl (65-105)
[2024-08-30] VITALS (11 sets, daily range): BP systolic 121–153; BP diastolic 66–88; PULSE 79–93; RESP 16–22; TEMP 36.1–37.3; O2SAT 95–100
[2024-08-30 00:38] LABS: Vancomycin Trough 13.2 ug/mL (10.0-20.0)
[2024-08-30] MEDS: VANCOMYCIN 2,000 MG/NS 500 ML 2,000 MG/500 ML BAG 250 MG IVPB ×2 (01:36→09:46)
[2024-08-30] MEDS: MEROPENEM 1 GM/NS 100 ML 1 GM/100 ML BAG IVPB (06:01)
[2024-08-30 06:59] LABS: Basophils Percent Auto 0.3 % (0.2-1.2); Eosinophils Percent Auto 0.3 % (0-4.4); Hematocrit 39.5 % (42.0-52.0); Hemoglobin 12.9 g/dL (14.0-18.0); Immature Granulocyte Absolute 0.06 K/mm3 (0.00-0.031); Immature Granulocyte Percent A 0.4 % (0-0.5); Lymphocytes Absolute Auto 0.98 K/mm3 (0.9-3.2); Mean Corpuscular HGB Conc 32.7 g/dl (32-36); Mean Corpuscular Hemoglobin 29.5 pg (26-34); Mean Corpuscular Volume 90.4 fl (80-100); Mean Platelet Volume 9.8 fl (7.4-10.4); Monocytes Percent Auto 7.2 % (2.6-8.5); Neutrophils Absolute Auto 11.8 K/mm3 (1.3-6.7); Neutrophils Percent Auto 84.8 % (45.5-73.1); Platelet Count Result 381 k/mm3 (150-375); Red Blood Count 4.37 M/mm3 (4.6-6.20); Red Cell Distribution Width 11.6 % (11.5-14.5)
[2024-08-30 07:12] LABS: Alanine Aminotransferase 10 U/L (6-50); Albumin Level 3.5 g/dL (3.5-5.1); Alkaline Phosphatase 91 U/L (38-126); Anion Gap 9 mmol/L (4-12); Aspartate Amino Transferase 21 U/L (17-59); Bilirubin,Total 1.1 mg/dL (0.2-1.3); Blood Urea Nitrogen 10 mg/dL (9-20); Calcium 8.3 mg/dL (8.4-10.2); Carbon Dioxide 27 mmol/L (22-30); Chloride 97 mmol/L (98-107); Estimated CRCL calculation 122 ml/min; Estimated Glomerular Filt Rate > 60; Glucose 54 mg/dL (65-110); Magnesium 1.9 mg/dL (1.6-2.3); Potassium 4.3 mmol/L (3.4-5.0); Sodium 133 mmol/L (137-145)
[2024-08-30] MEDS: DEXTROSE 50% 25 GM/50 ML SYRINGE IV PUSH ×2 (07:19→13:35)
[2024-08-30] MEDS: GLUCOSE ORAL GEL 15 GM OF GLUCSE IN 37.5 GM TUBE PO (07:33)
[2024-08-30 07:58] LABS: Glucose Point of Care 57 mg/dl (65-105)
[2024-08-30 08:28] LABS: Glucose Point of Care 92 mg/dl (65-105)
[2024-08-30] MEDS: DEXTROSE 5%/0.9% SOD CHL 1,000 ML 100 ML IV CONT (09:46)
--- NOTE | 2024-08-30 10:44 | P.PNAN_ITS ---
Anes - Initial Pre Proc Eval Procedure: Operation Date: 08/30/24 12:00 Proposed Procedures p Left Diabetic Foot Ulcer Debridement And Application Wound Vac - Ge Lam MD Date/Time: 08/30/24 10:44 Surgeon: Sandee Weiss MD Pre Op Diagnosis: New Onset LT Heel Ulcer Patient Data Age: 69 Gender: M Height: 1.83 m Weight: 78 kg Last Vital Signs Temp 36.1 C L 08/30/24 04:30 Pulse 87 08/30/24 04:30 Resp 18 08/30/24 04:30 BP 144/78 H 08/30/24 04:30 Pulse Ox 95 08/30/24 04:30 O2 Del Method Room Air 08/29/24 20:43 Allergies Allergy/AdvReac Type Severity Reaction Status Date / Time No Known Allergies Allergy Verified 08/23/24 13:10 Home Medications ?Medication ?Instructions ?Recorded ?Confirmed ?Type Jardiance 10 mg tablet 10 mg PO DAILY 30 days #30 tabs 06/18/24 08/27/24 Rx (empagliflozin) Lantus Solostar U-100 Insulin 100 10 unit (0.1 mL) subcut QPM #15 mL 06/18/24 08/27/24 Rx unit/mL (3 mL) subcutaneous pen (insulin glargine) sulfamethoxazole 800 1 tablet PO Q12H 10 days #20 tabs 08/23/24 08/27/24 Rx mg-trimethoprim 160 mg tablet (Bactrim DS) acetaminophen 500 mg tablet 1,000 mg PO Q6H PRN pain 08/27/24 08/27/24 History (Acetaminophen Extra Strength) meclizine 50 mg tablet (Antivert) 50 mg PO BID 08/27/24 08/27/24 History metformin 500 mg tablet 500 mg PO BID 08/27/24 08/27/24 History Laboratory Tests 08/29/24 08/29/24 08/29/24 11:26 16:19 20:20 WBC RBC Hgb Hct MCV MCH MCHC RDW Plt Count MPV Immature Gran % (Auto) Neut % (Auto) Lymph % (Auto) [place] % (Auto) Eos % (Auto) Baso % (Auto) Lymph # (Auto) [place] # (Auto) Eos # (Auto) Baso # (Auto) Abs Immat Gran (auto) Absolute Neuts (auto) Absolute Nucleated RBC Nucleated RBC % Sodium Potassium Chloride Carbon Dioxide Anion Gap BUN Creatinine Estim Creat Clear Calc Estimated GFR Glucose POC Capillary Glucose 131 H mg/dl 110 H mg/dl 102 mg/dl (65-105) (65-105) (65-105) Calcium Magnesium Total Bilirubin AST ALT Alkaline Phosphatase Total Protein Albumin Vancomycin Trough 08/30/24 08/30/24 08/30/24 00:14 06:21 07:55 WBC 14.0 H K/mm3 (4.5-10.0) RBC 4.37 L M/mm3 (4.6-6.20) Hgb 12.9 L g/dL (14.0-18.0) Hct 39.5 L % (42.0-52.0) MCV 90.4 fl (80-100) MCH 29.5 pg (26-34) MCHC 32.7 g/dl (32-36) RDW 11.6 % (11.5-14.5) Plt Count 381 H k/mm3 (150-375) MPV 9.8 fl (7.4-10.4) Immature Gran % (Auto) 0.4 % (0-0.5) Neut % (Auto) 84.8 H % (45.5-73.1) Lymph % (Auto) 7.0 L % (18.3-44.2) [place] % (Auto) 7.2 % (2.6-8.5) Eos % (Auto) 0.3 % (0-4.4) Baso % (Auto) 0.3 % (0.2-1.2) Lymph # (Auto) 0.98 K/mm3 (0.9-3.2) [place] # (Auto) 1.0 H K/mm3 (0.1-0.6) Eos # (Auto) 0.0 K/mm3 (0-0.3) Baso # (Auto) 0.0 K/mm3 (0.0-0.1) Abs Immat Gran (auto) 0.06 H K/mm3 (0.00-0.031) Absolute Neuts (auto) 11.8 H K/mm3 (1.3-6.7) Absolute Nucleated RBC 0.000 K/mm3 (0.0-0.012) Nucleated RBC % 0.0 % (0.0-0.2) Sodium 133 L mmol/L (137-145) Potassium 4.3 mmol/L (3.4-5.0) Chloride 97 L mmol/L (98-107) Carbon Dioxide 27 mmol/L (22-30) Anion Gap 9 mmol/L (4-12) BUN 10 mg/dL (9-20) Creatinine 0.52 L mg/dL (0.7-1.3) Estim Creat Clear Calc 122 ml/min Estimated GFR > 60 (59 - ) Glucose 54 L* mg/dL (65-110) POC Capillary Glucose 57 L* mg/dl (65-105) Calcium 8.3 L mg/dL (8.4-10.2) Magnesium 1.9 mg/dL (1.6-2.3) Total Bilirubin 1.1 mg/dL (0.2-1.3) AST 21 U/L (17-59) ALT 10 U/L (6-50) Alkaline Phosphatase 91 U/L (38-126) Total Protein 7.0 g/dL (6.3-8.2) Albumin 3.5 g/dL (3.5-5.1) Vancomycin Trough 13.2 ug/mL (10.0-20.0) 08/30/24 08:25 WBC RBC Hgb Hct MCV MCH MCHC RDW Plt Count MPV Immature Gran % (Auto) Neut % (Auto) Lymph % (Auto) [place] % (Auto) Eos % (Auto) Baso % (Auto) Lymph # (Auto) [place] # (Auto) Eos # (Auto) Baso # (Auto) Abs Immat Gran (auto) Absolute Neuts (auto) Absolute Nucleated RBC Nucleated RBC % Sodium Potassium Chloride Carbon Dioxide Anion Gap BUN Creatinine Estim Creat Clear Calc Estimated GFR Glucose POC Capillary Glucose 92 mg/dl (65-105) Calcium Magnesium Total Bilirubin AST ALT Alkaline Phosphatase Total Protein Albumin Vancomycin Trough Patient hx anesthesia problems: none Family hx anesthesia problems: none Results Review: All pre-operative results and documents have been reviewed as part of the pre- operative evaluation. 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 GERD (gastroesophageal reflux disease) Carpal tunnel syndrome Surgical History Surgical History History of incision and drainage Complex I&D Right foot infected diabetic foot ulcer measuring approximately 5x4cm. on 12/19/21 Status post debridement (12/2020) Right foot abscess, osteomyelitis. History of coronary artery stent placement History of cardiac catheterization History of colonoscopy with polypectomy History of repair of hiatal hernia (2001) History of coronary artery bypass graft History of carpal tunnel release History of arthroscopy of right knee History of hernia repair (2018) Finger amputee Right 2nd finger secondary to crush injury. History of right hemicolectomy with ileocolic anastomsis in 2019 Family History Family History Sibling Family history of malignant neoplasm Father Family history of chronic obstructive pulmonary disease Hypertension Heart disease Mother Hypertension Cancer Sibling Cancer Sibling Cancer Sibling Cancer Social History Social History Social History: The patient is and lives with his and 1 son in [place]. They have 4 children. 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 No alcohol or illicit substance abuse. Surrogate medical decision maker: Tash Orantes, spouse. Code status: Full code. Years smoked: 10 Smoking status: Former smoker Alcohol intake: never Substance use: never Substance use type: does not use Do You Feel Safe in your Home?: Yes Lack of Transportation: No Lack of Food: Never True Current Housing: I Have Housing Concerned About Future Housing: No Difficulty Paying Gas/Electric Bills: No Difficulty Paying for Meds: No Currently Unemployed: No Education: High School Diploma/GED Difficulty w/ Childcare or Family Care: No Living arrangements: with family Occupation/Education: retired Gender identity (if verbalized by the patient): Male Sexual Orientation (if Verbalized by the Patient): Straight or Heterosexual Spiritual care concerns: No Anes - Eval Final PreProcedure Day of Procedure 08/30/24 10:44 Patient weight: normal Heart: regular rate and rhythm Lungs: clear to auscultation Airway: Mallampati scale class II Neurological: alert and oriented Last oral intake: >/= 8 hours ASA classification: III Emergent: no Anesthetic plan: proceed Anesthesia type and monitoring: general LMA and standard monitoring Results Review: All pre-operative results and documents have been reviewed as part of the pre- operative evaluation. Informed Consent: The patient's anesthetic plan and its attendant risks and benefits were discussed with the patient/family/POA. Questions were solicited and answers provided to the satisfaction of the patient/family/POA.
[2024-08-30] MEDS: LACTATED RINGERS 1,000 ML 30 ML IV CONT ×2 (10:45→13:25)
[2024-08-30 10:57] LABS: Glucose Point of Care 95 mg/dl (65-105)
[2024-08-30] MEDS: fentaNYL CITRATE INJ (*CRX) 100 MCG/2 ML VIAL 25 MCG IV PUSH (11:05)
--- NOTE | 2024-08-30 12:06 | WPDHPUPDATE1 ---
History and Physical Update Update Date/Time: 08/30/24 12:06 History and Physical has been reviewed, including an updated exam of the patient. There are NO changes in the patient's condition. Risks, benefits, and alternatives have been discussed and questions answered. Patient agrees to proceed with procedure.
--- NOTE | 2024-08-30 13:22 | P.OP_ITS ---
Procedure Note - Detailed Date of Procedure 08/30/24 Pre-op Diagnosis LT Heel Decubitus Post-op Diagnosis Same Procedure Performed IRRIGATION AND DEBRIDEMENT LEFT HEEL ULCER . Surgeon Ge Lam MD Canine Enforcement Officer NKECHI CUMMINGS RN, [facility]- Anesthesia General Description of Procedure THE PATIENT WAS TAKEN TO THE OR. THE LEFT LEG WAS PREPPED AND DRAPED IN THE NORMAL FASHION. AN INCISION WAS MADE OVER THE HEEL DECUBITUS WHICH MEASURED 4x3 cm. THE ESCHAR WAS REMOVED. THERE WAS NECROTIC SKIN AND FAT UNDER THE ESCHAR. THE TISSUE WAS REMOVED WITH A SCALPEL UNTIL THE FASCIA LAYER WAS IDENTIFIED. THE FASCIA WAS LIQUIFIED AND NECROTIC. SHARP DEBRIDEMENT WITH A SCALPEL WAS PREFORMED. EXCISIONAL DEBRIDEMENT CONTINUED TILL THE SURFACE OF THE CALCANEUS BONE. THERE WAS NO OBVIOUS INFECTION TO THE SURFACE OF THE CALCANEUS. NEXT WHEN THERE WAS GOOD BLEEDING TISSUE, THE WOUND WAS IRRIGATED WITH COPIOUS AMOUNTS OF STERILE WATER. NEXT A WOUND VAC WAS PLACED AND COLLAPSED WELL WITH IN THE WOUND WITH NO LEAK. A STERILE DRESSING WAS APPLIED. PATIENT WAS EXTUBATED AND SENT TO RECOVERY ROOM IN STABLE CONDITION. Estimated Blood Loss 50 Urine Output 650 Drains No Packing No (WOUND VAC) Complications No immediate complications Disposition PACU
[2024-08-30 13:33] LABS: Glucose Point of Care 72 mg/dl (65-105)
--- NOTE | 2024-08-30 13:42 | P.PNIM_ITS ---
Progress Note: A&P Assessment and Plan (1) Heel ulcer due to DM: Qualifiers: Diabetes mellitus type: type 2 Laterality: left Non-pressure ulcer stage: with necrosis of muscle Qualified Code(s): E11.621 - Type 2 diabetes mellitus with foot ulcer; L97.423 - Non-pressure chronic ulcer of left heel and midfoot with necrosis of muscle Code(s): E11.621 - Type 2 diabetes mellitus with foot ulcer; L97.409 - Non-pressure chronic ulcer of unspecified heel and midfoot with unspecified severity Status: Acute Assessment and Plan: MRI showed left calcaneus early osteomyelitis Blood culture on meropenem and vancomycin For I and D, today monitor (2) Hypertension: Qualifiers: Hypertension type: primary hypertension Qualified Code(s): I10 - Essential (primary) hypertension Code(s): I10 - Essential (primary) hypertension Status: Acute Assessment and Plan: Patient does not appear to be on antihypertensives Continue to monitor (3) Chronic systolic (congestive) heart failure: Code(s): I50.22 - Chronic systolic (congestive) heart failure Status: Acute Assessment and Plan: Euvolemic Monitor for fluid overload Patient on diuretics (4) CAD (coronary artery disease): Qualifiers: Coronary Disease-Associated Artery/Lesion type: [place] artery [place] vs. 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 HEENT: normocephalic, atraumatic. Mucous membranes moist. EOMI, PERRLA, bilateral sclera anicteric, no conjunctival injection. Neck supple without JVD, lymphadenopathy, or bruit. Respiratory: clear to ascultation bilaterally. No rales/rhonic/wheezes. Cardiovascular: Regular rate and rhythm, normal S1-S2 upon ascultation. No murmurs, rubs, or clicks. PMI is nondisplaced, capillary refill less than 3 second. Abdomen: Soft, round, no pulsatile masses, nondistended and nontender. No rebound, no guarding. No CVA tenderness, no hepatosplenomegaly. Bowel sounds present to all four quadrants. No high pitch or tinkling sounds, resonant to percussion. Extremities: No cyanosis, clubbing, or edema present. Pulses are palpable 2/2. Active ROM to all four extremities. Neuro: Alert and orientated x 4. PERRLA. Cranial nerves 2-12 intact without focal deficit. Skin: Warm, dry, and intact, without rash, erythema, or lesion. Psych: pleasant, cooperative, normal speech, normal affect, no hallucinations, no dysarthia Exam Narrative: General: well appearing, appears stated age. HEENT: normocephalic, atraumatic. Mucous membranes moist. EOMI, PERRLA, bilateral sclera anicteric, no conjunctival injection. Neck supple without JVD, lymphadenopathy, or bruit. Respiratory: clear to auscultation bilaterally. No rales/rhonchi/wheezes. Cardiovascular: Regular rate and rhythm, normal S1-S2 upon auscultation. No murmurs, rubs, or clicks. PMI is nondisplaced, capillary refill less than 3 second. Abdomen: Soft, round, no pulsatile masses, nondistended and nontender. No rebound, no guarding. No CVA tenderness, no hepatosplenomegaly. Bowel sounds present to all four quadrants. No high pitch or tinkling sounds, resonant to percussion. Extremities: No cyanosis, clubbing, or edema present. Pulses are palpable 2/2. r foot with dressing clean dry intact no erythema on lower extremity Neuro: Alert and orientated x 4. PERRLA. Cranial nerves 2-12 intact without focal deficit. Skin: Warm, dry, and intact, without rash, erythema, or lesion. Objective Data Vital Signs Vital Signs: Vital Signs - 24 hr 05/15/25 13:55 08/29/24 20:15 08/29/24 20:43 Temperature 97.5 F L 98.4 F Pulse Rate 88 86 Respiratory Rate 20 18 Blood Pressure 135/76 135/83 Pulse Oximetry 94 98 Oxygen Delivery Room Air 08/30/24 04:30 Temperature 97 F L Pulse Rate 87 Respiratory Rate 18 Blood Pressure 144/78 H Pulse Oximetry 95 Oxygen Delivery Intake/Output Intake/Output: Intake & Output 08/27/24 08/28/24 08/29/24 08/30/24 23:59 23:59 23:59 23:59 Intake Total 2280 3220 2230 1050 Output Total 400 124 410 1016 Balance 1880 2620 1730 -250 Meds/Results Medications: Active Medications Generic Name Dose Route Start Last Admin Trade Name Freq PRN Reason Stop Dose Admin Acetaminophen 650 mg 08/27/24 15:34 08/28/24 22:31 Acetaminophen 325 Mg Tablet PO 650 mg Q4H PRN Administration Mild Pain (1-3) or Fever Hydrocodone Bitart/Acetaminophen 1 tab 08/27/24 15:34 08/29/24 21:55 Hydrocodone/Acetaminophen (*Crx) 5-325 Mg Tablet PO 1 tab Q4H PRN Administration Moderate Pain (4-6) Dextrose 12.5 gm 08/27/24 15:34 08/30/24 07:19 Dextrose 50% 25 Gm/50 Ml Syringe IV PUSH 12.5 gm PRN PRN Administration Hypoglycemia Protocol Docusate Sodium 100 mg 08/27/24 17:00 08/29/24 16:29 Docusate Sodium 100 Mg Capsule PO 100 mg BID RANDA Administration Empagliflozin 10 mg 08/28/24 09:00 08/29/24 09:14 Empagliflozin 10 Mg Tablet PO 10 mg DAILY RANDA Administration Enoxaparin Sodium 40 mg 08/29/24 09:00 08/29/24 09:14 Enoxaparin 40 Mg/0.4 Ml Syringe SUB-Q 40 mg DAILY RANDA Administration Fentanyl Citrate 25 mcg 08/30/24 10:30 Fentanyl Citrate Inj (*Crx) 100 Mcg/2 Ml Vial IV PUSH Q2M PRN Pain Fentanyl Citrate 25 mcg 08/30/24 10:56 08/30/24 11:05 Fentanyl Citrate Inj (*Crx) 100 Mcg/2 Ml Vial IV PUSH 25 mcg Q5M PRN Administration Pain 7-10 Glucagon 1 mg 08/27/24 15:34 Glucagon For Inj 1 Mg Vial IM PRN PRN Hypoglycemia Protocol Glucose 15 gm 08/27/24 15:34 08/30/24 07:33 Glucose Oral Gel 15 Gm Of Glucse In 37.5 Gm Tube PO 15 gm PRN PRN Administration Hypoglycemia Protocol Meropenem 1 gm in 100 mls @ 200 mls/hr 08/27/24 14:00 08/30/24 06:31 IVPB Infused Q8H RANDA Infusion Dextrose 1,000 mls @ 100 mls/hr 08/27/24 15:34 Dextrose 5% 1,000 Ml IVPB PRN PRN Hypoglycemia Protocol Vancomycin HCl 2,000 mg in 500 mls @ 250 mls/hr 08/30/24 01:00 08/30/24 09:46 Vancomycin 2,000 Mg/Ns 500 Ml IVPB 250 mls/hr Q8H RANDA Administration Dextrose/Sodium Chloride 1,000 mls @ 100 mls/hr 08/30/24 08:55 08/30/24 09:46 Dextrose 5% Sodium Chloride 0.9% IV CONT 100 mls/hr .Q10H RANDA Administration Lactated Ringer's 1,000 mls @ 30 mls/hr 08/30/24 10:30 08/30/24 13:25 Lr - Lactated Ringers Iv IV CONT Infused .Q24H RANDA Infusion Lactated Ringer's 1,000 mls @ 30 mls/hr 08/30/24 10:30 08/30/24 13:25 Lr - Lactated Ringers Iv IV CONT 30 mls/hr .Q24H RANDA Administration Insulin Aspart 1 - 2 units 08/27/24 21:00 08/29/24 21:20 Insulin Aspart (*Bkc) 100 Units/Ml SUB-Q Not Given HS RANDA Protocol Insulin Aspart 3 - 6 units 08/28/24 08:00 08/30/24 07:30 Insulin Aspart (*Bkc) 100 Units/Ml SUB-Q Not Given [facility] Protocol Insulin Glargine 12 units 08/27/24 21:00 08/29/24 21:20 Insulin Glargine (*Bkc) 100 Units/Ml 0.15 units/kg (12 units) 12 units SUB-Q Administration HS RANDA Lisinopril 5 mg 08/29/24 11:05 08/29/24 13:23 Lisinopril 5 Mg Tablet PO 5 mg QAM RANDA Administration Meclizine HCl 50 mg 08/27/24 18:30 08/29/24 16:29 Meclizine Hcl 25 Mg Tablet PO 50 mg BID RANDA Administration Ondansetron HCl 4 mg 08/30/24 10:30 Ondansetron Inj 4 Mg/2 Ml Vial IV PUSH ONCE PRN Nausea Sodium Hypochlorite 1 applic 08/27/24 10:00 08/29/24 21:21 Sod Hypochlorite 1/4 Strength 473 Ml TOPICAL 1 applic Q12HR RANDA Administration Radiology Results: ITS Impressions Ankle Brachial Index 08/27/24 11:25 IMPRESSION: Normal RANDAL. Foot X-Ray 08/27/24 11:31 IMPRESSION: 1. Soft tissue gas at the heel fat pad with likely related to an overlying skin ulceration. Differential for soft tissue gas includes necrotizing fasciitis which is ultimately a clinical diagnosis. No associated osteomyelitis. Findings were discussed with Keily Centeno, the nurse caring for the patient, at 11:37 AM. 2. Mild polyarticular osteoarthritis in the mid and forefoot with erosions at the heads of multiple proximal phalanges with displacement appearance most suggestive of gout. Foot MRI 08/28/24 11:37 IMPRESSION 1. Numerous foci of soft tissue gas localized to the heel fat pad surrounding a skin ulceration without abscess. 2. Marrow edema and enhancement along the underlying plantar/lateral margin of the posterior tuberosity of the calcaneus which could be reactive or due to early osteomyelitis although there is no definitive cortical erosion or geographic loss of T1 fat signal to more specifically suggest osteomyelitis. 3. Mild to moderate polyarticular osteoarthritis in the midfoot. 4. Chronic sprains of the deep deltoid ligament and anterior inferior tibiofibular ligament. Labs Labs: Laboratory Results - last 24 hr 08/29/24 08/29/24 08/30/24 16:19 20:20 00:14 WBC RBC Hgb Hct MCV MCH MCHC RDW Plt Count MPV Immature Gran % (Auto) Neut % (Auto) Lymph % (Auto) [place] % (Auto) Eos % (Auto) Baso % (Auto) Lymph # (Auto) [place] # (Auto) Eos # (Auto) Baso # (Auto) Abs Immat Gran (auto) Absolute Neuts (auto) Absolute Nucleated RBC Nucleated RBC % Sodium Potassium Chloride Carbon Dioxide Anion Gap BUN Creatinine Estim Creat Clear Calc Estimated GFR Glucose POC Capillary Glucose 110 H 102 Calcium Magnesium Total Bilirubin AST ALT Alkaline Phosphatase Total Protein Albumin Vancomycin Trough 13.2 08/30/24 08/30/24 08/30/24 06:21 07:55 08:25 WBC 14.0 H RBC 4.37 L Hgb 12.9 L Hct 39.5 L MCV 90.4 MCH 29.5 MCHC 32.7 RDW 11.6 Plt Count 381 H MPV 9.8 Immature Gran % (Auto) 0.4 Neut % (Auto) 84.8 H Lymph % (Auto) 7.0 L [place] % (Auto) 7.2 Eos % (Auto) 0.3 Baso % (Auto) 0.3 Lymph # (Auto) 0.98 [place] # (Auto) 1.0 H Eos # (Auto) 0.0 Baso # (Auto) 0.0 Abs Immat Gran (auto) 0.06 H Absolute Neuts (auto) 11.8 H Absolute Nucleated RBC 0.000 Nucleated RBC % 0.0 Sodium 133 L Potassium 4.3 Chloride 97 L Carbon Dioxide 27 Anion Gap 9 BUN 10 Creatinine 0.52 L Estim Creat Clear Calc 122 Estimated GFR > 60 Glucose 54 L* POC Capillary Glucose 57 L* 92 Calcium 8.3 L Magnesium 1.9 Total Bilirubin 1.1 AST 21 ALT 10 Alkaline Phosphatase 91 Total Protein 7.0 Albumin 3.5 Vancomycin Trough 08/30/24 08/30/24 10:54 13:28 WBC RBC Hgb Hct MCV MCH MCHC RDW Plt Count MPV Immature Gran % (Auto) Neut % (Auto) Lymph % (Auto) [place] % (Auto) Eos % (Auto) Baso % (Auto) Lymph # (Auto) [place] # (Auto) Eos # (Auto) Baso # (Auto) Abs Immat Gran (auto) Absolute Neuts (auto) Absolute Nucleated RBC Nucleated RBC % Sodium Potassium Chloride Carbon Dioxide Anion Gap BUN Creatinine Estim Creat Clear Calc Estimated GFR Glucose POC Capillary Glucose 95 72 Calcium Magnesium Total Bilirubin AST ALT Alkaline Phosphatase Total Protein Albumin Vancomycin Trough Quality VTE Prophylaxis VTE prophylaxis: mechanical ordered and pharmacologic ordered
[2024-08-30] MEDS: metFORMIN HCL 500 MG TABLET PO (15:30)
[2024-08-30] MEDS: SENNA/DOCUSATE SODIUM TABLET 2 TAB PO (15:30)
[2024-08-30] MEDS: EMPAGLIFLOZIN 10 MG TABLET PO (15:30)
[2024-08-30] MEDS: AMOXICILLIN/CLAVULANATE K 875-125 MG TAB 1 TABLET PO ×2 (15:30→23:18)
[2024-08-30] MEDS: lisinopriL 5 MG TABLET PO (15:30)
[2024-08-30] MEDS: MECLIZINE HCL 25 MG TABLET 50 MG PO (15:30)
[2024-08-30] MEDS: ENOXAPARIN 40 MG/0.4 ML SYRINGE SUB-Q (15:31)
[2024-08-30 16:34] LABS: Glucose Point of Care 139 mg/dl (65-105)
[2024-08-30] MEDS: FAMOTIDINE 20 MG TABLET PO (20:36)
[2024-08-30 21:50] LABS: Glucose Point of Care 180 mg/dl (65-105)
[2024-08-30] MEDS: HYDROcodone/acetaminophen (*CRX) 5-325 MG TABLET 2 TAB PO (23:20)
[2024-08-31 00:05] VITALS: BP 154/74; PULSE 96; RESP 18; TEMP 36.6; O2SAT 96
[2024-08-31 04:20] VITALS: BP 145/71; PULSE 78; RESP 18; TEMP 35.9; O2SAT 97
[2024-08-31 06:10] LABS: Basophils Percent Auto 0.3 % (0.2-1.2); Eosinophils Absolute Auto 0.2 K/mm3 (0-0.3); Eosinophils Percent Auto 2.1 % (0-4.4); Hematocrit 36.8 % (42.0-52.0); Hemoglobin 11.7 g/dL (14.0-18.0); Immature Granulocyte Absolute 0.09 K/mm3 (0.00-0.031); Immature Granulocyte Percent A 0.8 % (0-0.5); Lymphocytes Percent Auto 11.3 % (18.3-44.2); Mean Corpuscular HGB Conc 31.8 g/dl (32-36); Mean Corpuscular Hemoglobin 29.4 pg (26-34); Mean Corpuscular Volume 92.5 fl (80-100); Mean Platelet Volume 9.9 fl (7.4-10.4); Monocytes Absolute Auto 0.8 K/mm3 (0.1-0.6); Monocytes Percent Auto 7.3 % (2.6-8.5); Neutrophils Percent Auto 78.2 % (45.5-73.1); Platelet Count Result 358 k/mm3 (150-375); Red Blood Count 3.98 M/mm3 (4.6-6.20); Red Cell Distribution Width 11.7 % (11.5-14.5); White Blood Count 11.5 K/mm3 (4.5-10.0)
[2024-08-31 06:44] LABS: Potassium 4.1 mmol/L (3.4-5.0)
[2024-08-31 06:50] LABS: Erythrocyte Sedimentation Rate 81 mm/hr (0-20)
[2024-08-31 06:53] LABS: Alanine Aminotransferase 12 U/L (6-50); Alkaline Phosphatase 80 U/L (38-126); Anion Gap 7 mmol/L (4-12); Aspartate Amino Transferase 23 U/L (17-59); Bilirubin,Total 0.8 mg/dL (0.2-1.3); Blood Urea Nitrogen 12 mg/dL (9-20); CRP 8.4 mg/dL (<1.0); Calcium 8.1 mg/dL (8.4-10.2); Carbon Dioxide 28 mmol/L (22-30); Chloride 97 mmol/L (98-107); Estimated CRCL calculation 116 ml/min; Estimated Glomerular Filt Rate > 60; Glucose 117 mg/dL (65-110); Magnesium 1.9 mg/dL (1.6-2.3); Sodium 132 mmol/L (137-145)
[2024-08-31 07:59] LABS: Glucose Point of Care 117 mg/dl (65-105)
[2024-08-31 08:01] VITALS: BP 146/81; PULSE 78; RESP 18; TEMP 36.4; O2SAT 99
[2024-08-31] MEDS: SENNA/DOCUSATE SODIUM TABLET 2 TAB PO ×2 (08:43→16:58)
[2024-08-31] MEDS: MECLIZINE HCL 25 MG TABLET 50 MG PO ×2 (08:43→16:58)
[2024-08-31] MEDS: EMPAGLIFLOZIN 10 MG TABLET PO (08:43)
[2024-08-31] MEDS: lisinopriL 5 MG TABLET PO (08:43)
[2024-08-31] MEDS: metFORMIN HCL 500 MG TABLET PO ×2 (08:43→16:58)
[2024-08-31] MEDS: FAMOTIDINE 20 MG TABLET PO ×2 (08:44→22:32)
[2024-08-31] MEDS: HYDROcodone/acetaminophen (*CRX) 5-325 MG TABLET 1 TAB PO (08:44)
[2024-08-31] MEDS: ENOXAPARIN 40 MG/0.4 ML SYRINGE SUB-Q (08:44)
[2024-08-31] MEDS: AMOXICILLIN/CLAVULANATE K 875-125 MG TAB 1 TABLET PO ×2 (08:44→22:32)
[2024-08-31 11:30] LABS: Glucose Point of Care 129 mg/dl (65-105)
[2024-08-31 12:05] VITALS: BP 137/70; PULSE 94; RESP 16; TEMP 36.4; O2SAT 98
[2024-08-31 16:13] VITALS: BP 145/80; PULSE 94; RESP 16; TEMP 36.4; O2SAT 100
[2024-08-31 16:33] LABS: Glucose Point of Care 153 mg/dl (65-105)
--- NOTE | 2024-08-31 16:50 | PM.IMPN ---
Progress Note: A&P Assessment and Plan (1) Heel ulcer due to DM: Qualifiers: Diabetes mellitus type: type 2 Laterality: left Non-pressure ulcer stage: with necrosis of muscle Qualified Code(s): E11.621 - Type 2 diabetes mellitus with foot ulcer; L97.423 - Non-pressure chronic ulcer of left heel and midfoot with necrosis of muscle Code(s): E11.621 - Type 2 diabetes mellitus with foot ulcer; L97.409 - Non-pressure chronic ulcer of unspecified heel and midfoot with unspecified severity Status: Acute Assessment and Plan: MRI showed left calcaneus early osteomyelitis Blood culture s/p meropenem and vancomycin S/p I and D, wound culture positive Continue Augmentin, continue wound vac monitor (2) Hypertension: Qualifiers: Hypertension type: primary hypertension Qualified Code(s): I10 - Essential (primary) hypertension Code(s): I10 - Essential (primary) hypertension Status: Acute Assessment and Plan: Patient does not appear to be on antihypertensives Continue to monitor (3) Chronic systolic (congestive) heart failure: Code(s): I50.22 - Chronic systolic (congestive) heart failure Status: Acute Assessment and Plan: Euvolemic Monitor for fluid overload Patient on diuretics (4) CAD (coronary artery disease): Qualifiers: Coronary Disease-Associated Artery/Lesion type: [place] artery [place] vs. transplanted heart: [place] heart Associated angina: with stable angina Qualified Code(s): I25.118 - Atherosclerotic heart disease of [place] coronary artery with other forms of angina pectoris Code(s): I25.10 - Atherosclerotic heart disease of [place] coronary artery without angina pectoris Status: Acute Assessment and Plan: Continue Jardiance (5) Type 2 diabetes mellitus with hyperglycemia: Qualifiers: Diabetes mellitus nursing home insulin use: with nursing home use Qualified Code(s): E11.65 - Type 2 diabetes mellitus with hyperglycemia; Z79.4 - [facility] (current) use of insulin Code(s): E11.65 - Type 2 diabetes mellitus with hyperglycemia Status: Acute Assessment and Plan: Uncontrolled hemoglobin A1c 11.3 Hold home metformin SSI and Lantus Plan DVT prophylaxis on Sq Lovenox Subjective Date/time seen: 08/31/24 16:50 Interval history: Comfortable at bedside s/p I and D Review of Systems Review of Systems: General: well appearing, appears stated age. HEENT: normocephalic, atraumatic. Mucous membranes moist. EOMI, PERRLA, bilateral sclera anicteric, no conjunctival injection. Neck supple without JVD, lymphadenopathy, or bruit. Respiratory: clear to ascultation bilaterally. No rales/rhonic/wheezes. Cardiovascular: Regular rate and rhythm, normal S1-S2 upon ascultation. No murmurs, rubs, or clicks. PMI is nondisplaced, capillary refill less than 3 second. Abdomen: Soft, round, no pulsatile masses, nondistended and nontender. No rebound, no guarding. No CVA tenderness, no hepatosplenomegaly. Bowel sounds present to all four quadrants. No high pitch or tinkling sounds, resonant to percussion. Extremities: No cyanosis, clubbing, or edema present. Pulses are palpable 2/2. Active ROM to all four extremities. Neuro: Alert and orientated x 4. PERRLA. Cranial nerves 2-12 intact without focal deficit. Skin: Warm, dry, and intact, without rash, erythema, or lesion. Psych: pleasant, cooperative, normal speech, normal affect, no hallucinations, no dysarthia Exam Narrative: General: well appearing, appears stated age. HEENT: normocephalic, atraumatic. Mucous membranes moist. EOMI, PERRLA, bilateral sclera anicteric, no conjunctival injection. Neck supple without JVD, lymphadenopathy, or bruit. Respiratory: clear to auscultation bilaterally. No rales/rhonchi/wheezes. Cardiovascular: Regular rate and rhythm, normal S1-S2 upon auscultation. No murmurs, rubs, or clicks. PMI is nondisplaced, capillary refill less than 3 second. Abdomen: Soft, round, no pulsatile masses, nondistended and nontender. No rebound, no guarding. No CVA tenderness, no hepatosplenomegaly. Bowel sounds present to all four quadrants. No high pitch or tinkling sounds, resonant to percussion. Extremities: No cyanosis, clubbing, or edema present. Pulses are palpable 2/2. r foot with dressing clean dry intact no erythema on lower extremity Neuro: Alert and orientated x 4. PERRLA. Cranial nerves 2-12 intact without focal deficit. Skin: left foot wound dressing and wound vac in place Objective Data Vital Signs Vital Signs: Vital Signs - 24 hr 08/30/24 20:25 08/30/24 20:36 08/31/24 00:05 Temperature 98.7 F 97.9 F Pulse Rate 91 96 Respiratory Rate 18 18 Blood Pressure 151/76 H 154/74 H Pulse Oximetry 98 96 Oxygen Delivery Room Air 08/31/24 04:20 08/31/24 08:01 08/31/24 08:45 Temperature 96.6 F L 97.5 F L Pulse Rate 78 78 Respiratory Rate 18 18 Blood Pressure 145/71 H 146/81 H Pulse Oximetry 97 99 Oxygen Delivery Room Air 08/31/24 11:13 08/31/24 12:05 Temperature 97.5 F L Pulse Rate 94 Respiratory Rate 16 Blood Pressure 137/70 Pulse Oximetry 98 Oxygen Delivery Room Air Intake/Output Intake/Output: Intake & Output 08/28/24 08/29/24 08/30/24 08/31/24 23:59 23:59 23:59 23:59 Intake Total 3220 2230 2090 732 Output Total 745 973 5877 1325 Balance 2620 1730 790 -593 Meds/Results Medications: Active Medications Generic Name Dose Route Start Last Admin Trade Name Freq PRN Reason Stop Dose Admin Acetaminophen 1,000 mg 08/30/24 14:28 Acetaminophen 500 Mg Tablet PO Q6H PRN pain 1-3 Hydrocodone Bitart/Acetaminophen 1 tab 08/30/24 14:28 08/31/24 08:44 Hydrocodone/Acetaminophen (*Crx) 5-325 Mg Tablet PO 1 tab Q3H PRN Administration Pain Rated 4-6 Hydrocodone Bitart/Acetaminophen 2 tab 08/30/24 14:28 08/30/24 23:20 Hydrocodone/Acetaminophen (*Crx) 5-325 Mg Tablet PO 2 tab Q6H PRN Administration Pain Rated 7-10 Amoxicillin/Clavulanate Potassium 1 tablet 08/30/24 14:40 08/31/24 08:44 Amoxicillin/Clavulanate K 875-125 Mg Tab PO 1 tablet Q12HR RANDA Administration Dextrose 12.5 gm 08/27/24 15:34 08/30/24 07:19 Dextrose 50% 25 Gm/50 Ml Syringe IV PUSH 12.5 gm PRN PRN Administration Hypoglycemia Protocol Diazepam 5 mg 08/30/24 14:28 Diazepam (*Crx) 5 Mg Tablet PO Q8H PRN Muscle Spasm Empagliflozin 10 mg 08/28/24 09:00 08/31/24 08:43 Empagliflozin 10 Mg Tablet PO 10 mg DAILY RANDA Administration Enoxaparin Sodium 40 mg 08/29/24 09:00 08/31/24 08:44 Enoxaparin 40 Mg/0.4 Ml Syringe SUB-Q 40 mg DAILY RANDA Administration Famotidine 20 mg 08/30/24 21:00 08/31/24 08:44 Famotidine 20 Mg Tablet PO 20 mg Q12HR RANDA Administration Glucagon 1 mg 08/27/24 15:34 Glucagon For Inj 1 Mg Vial IM PRN PRN Hypoglycemia Protocol Glucose 15 gm 08/27/24 15:34 08/30/24 07:33 Glucose Oral Gel 15 Gm Of Glucse In 37.5 Gm Tube PO 15 gm PRN PRN Administration Hypoglycemia Protocol Dextrose 1,000 mls @ 100 mls/hr 08/27/24 15:34 Dextrose 5% 1,000 Ml IVPB PRN PRN Hypoglycemia Protocol Insulin Aspart 1 - 2 units 08/27/24 21:00 08/30/24 20:36 Insulin Aspart (*Bkc) 100 Units/Ml SUB-Q Not Given HS [facility] Protocol Insulin Aspart 3 - 6 units 08/28/24 08:00 08/31/24 16:36 Insulin Aspart (*Bkc) 100 Units/Ml SUB-Q Not Given TIDWM [facility] Protocol Insulin Glargine 10 units 08/30/24 18:00 Insulin Glargine (*Bkc) 100 Units/Ml SUB-Q QPM [facility] Lisinopril 5 mg 08/29/24 11:05 08/31/24 08:43 Lisinopril 5 Mg Tablet PO 5 mg QAM RANDA Administration Meclizine HCl 50 mg 08/27/24 18:30 08/31/24 08:43 Meclizine Hcl 25 Mg Tablet PO 50 mg BID RANDA Administration Metformin HCl 500 mg 08/30/24 17:00 08/31/24 08:43 Metformin Hcl 500 Mg Tablet PO 500 mg BID RANDA Administration Naloxone HCl 0.1 mg 08/30/24 14:28 Naloxone Hcl 0.4 Mg/Ml Vial IV PUSH Q2M PRN Opiate Reversal Ondansetron HCl 4 mg 08/30/24 14:28 Ondansetron Inj 4 Mg/2 Ml Vial IV PUSH Q4H PRN Nausea And Vomiting Polyethylene Glycol 17 gm 08/31/24 09:00 08/31/24 08:46 Polyethylene Glycol 3350 17 Gm Powd.Pack PO Not Given QAM RANDA Senna/Docusate Sodium 2 tab 08/30/24 17:00 08/31/24 08:43 Senna/Docusate Sodium Tablet PO 2 tab BID RANDA Administration Radiology Results: ITS Impressions Ankle Brachial Index 08/27/24 11:25 IMPRESSION: Normal RANDAL. Foot X-Ray 08/27/24 11:31 IMPRESSION: 1. Soft tissue gas at the heel fat pad with likely related to an overlying skin ulceration. Differential for soft tissue gas includes necrotizing fasciitis which is ultimately a clinical diagnosis. No associated osteomyelitis. Findings were discussed with Keily Centeno, the nurse caring for the patient, at 11:37 AM. 2. Mild polyarticular osteoarthritis in the mid and forefoot with erosions at the heads of multiple proximal phalanges with displacement appearance most suggestive of gout. Foot MRI 08/28/24 11:37 IMPRESSION 1. Numerous foci of soft tissue gas localized to the heel fat pad surrounding a skin ulceration without abscess. 2. Marrow edema and enhancement along the underlying plantar/lateral margin of the posterior tuberosity of the calcaneus which could be reactive or due to early osteomyelitis although there is no definitive cortical erosion or geographic loss of T1 fat signal to more specifically suggest osteomyelitis. 3. Mild to moderate polyarticular osteoarthritis in the midfoot. 4. Chronic sprains of the deep deltoid ligament and anterior inferior tibiofibular ligament. Labs Labs: Laboratory Results - last 24 hr 08/30/24 08/31/24 08/31/24 20:31 05:40 07:50 WBC 11.5 H RBC 3.98 L Hgb 11.7 L Hct 36.8 L MCV 92.5 MCH 29.4 MCHC 31.8 L RDW 11.7 Plt Count 358 MPV 9.9 Immature Gran % (Auto) 0.8 H Neut % (Auto) 78.2 H Lymph % (Auto) 11.3 L [place] % (Auto) 7.3 Eos % (Auto) 2.1 Baso % (Auto) 0.3 Lymph # (Auto) 1.30 [place] # (Auto) 0.8 H Eos # (Auto) 0.2 Baso # (Auto) 0.0 Abs Immat Gran (auto) 0.09 H Absolute Neuts (auto) 9.0 H Absolute Nucleated RBC 0.000 Nucleated RBC % 0.0 ESR 81 H Sodium 132 L Potassium 4.1 Chloride 97 L Carbon Dioxide 28 Anion Gap 7 BUN 12 Creatinine 0.55 L Estim Creat Clear Calc 116 Estimated GFR > 60 Glucose 117 H POC Capillary Glucose 180 H 117 H Calcium 8.1 L Magnesium 1.9 Total Bilirubin 0.8 AST 23 ALT 12 Alkaline Phosphatase 80 C-Reactive Protein 8.4 H Total Protein 6.0 L Albumin 3.0 L 08/31/24 08/31/24 11:27 16:23 WBC RBC Hgb Hct MCV MCH MCHC RDW Plt Count MPV Immature Gran % (Auto) Neut % (Auto) Lymph % (Auto) [place] % (Auto) Eos % (Auto) Baso % (Auto) Lymph # (Auto) [place] # (Auto) Eos # (Auto) Baso # (Auto) Abs Immat Gran (auto) Absolute Neuts (auto) Absolute Nucleated RBC Nucleated RBC % ESR Sodium Potassium Chloride Carbon Dioxide Anion Gap BUN Creatinine Estim Creat Clear Calc Estimated GFR Glucose POC Capillary Glucose 129 H 153 H Calcium Magnesium Total Bilirubin AST ALT Alkaline Phosphatase C-Reactive Protein Total Protein Albumin Quality VTE Prophylaxis VTE prophylaxis: mechanical ordered and pharmacologic ordered
[2024-08-31] MEDS: HYDROcodone/acetaminophen (*CRX) 5-325 MG TABLET 2 TAB PO (17:07)
[2024-08-31 21:24] LABS: Glucose Point of Care 189 mg/dl (65-105)
[2024-08-31 22:00] VITALS: BP 142/73; PULSE 82; RESP 18; TEMP 36.1; O2SAT 98
[2024-09-01] MEDS: HYDROcodone/acetaminophen (*CRX) 5-325 MG TABLET 2 TAB PO ×3 (03:30→21:21)
[2024-09-01 06:00] VITALS: BP 139/71; PULSE 76; RESP 16; TEMP 36.3; O2SAT 97
[2024-09-01 06:31] LABS: Alanine Aminotransferase 12 U/L (6-50); Albumin Level 3.2 g/dL (3.5-5.1); Alkaline Phosphatase 80 U/L (38-126); Anion Gap 6 mmol/L (4-12); Aspartate Amino Transferase 29 U/L (17-59); Bilirubin,Total 0.8 mg/dL (0.2-1.3); Blood Urea Nitrogen 12 mg/dL (9-20); Calcium 8.4 mg/dL (8.4-10.2); Carbon Dioxide 33 mmol/L (22-30); Chloride 92 mmol/L (98-107); Estimated CRCL calculation 112 ml/min; Estimated Glomerular Filt Rate > 60; Glucose 131 mg/dL (65-110); Magnesium 1.8 mg/dL (1.6-2.3); Potassium 4.1 mmol/L (3.4-5.0); Sodium 131 mmol/L (137-145)
[2024-09-01 07:07] LABS: Basophils Absolute Auto 0.1 K/mm3 (0.0-0.1); Basophils Percent Auto 0.5 % (0.2-1.2); Eosinophils Absolute Auto 0.2 K/mm3 (0-0.3); Eosinophils Percent Auto 2.6 % (0-4.4); Hematocrit 40.3 % (42.0-52.0); Hemoglobin 12.8 g/dL (14.0-18.0); Immature Granulocyte Absolute 0.05 K/mm3 (0.00-0.031); Immature Granulocyte Percent A 0.5 % (0-0.5); Mean Corpuscular HGB Conc 31.8 g/dl (32-36); Mean Corpuscular Hemoglobin 29.4 pg (26-34); Mean Corpuscular Volume 92.6 fl (80-100); Mean Platelet Volume 9.9 fl (7.4-10.4); Monocytes Absolute Auto 0.7 K/mm3 (0.1-0.6); Monocytes Percent Auto 7.7 % (2.6-8.5); Neutrophils Absolute Auto 6.9 K/mm3 (1.3-6.7); Neutrophils Percent Auto 73.7 % (45.5-73.1); Platelet Count Result 390 k/mm3 (150-375); Red Blood Count 4.35 M/mm3 (4.6-6.20); Red Cell Distribution Width 11.5 % (11.5-14.5); White Blood Count 9.3 K/mm3 (4.5-10.0)
[2024-09-01 07:29] LABS: Glucose Point of Care 121 mg/dl (65-105)
[2024-09-01] MEDS: MECLIZINE HCL 25 MG TABLET 50 MG PO ×2 (08:13→17:49)
[2024-09-01] MEDS: metFORMIN HCL 500 MG TABLET PO ×2 (08:13→17:49)
[2024-09-01] MEDS: lisinopriL 5 MG TABLET PO (08:13)
[2024-09-01] MEDS: AMOXICILLIN/CLAVULANATE K 875-125 MG TAB 1 TABLET PO ×2 (08:13→21:21)
[2024-09-01] MEDS: SENNA/DOCUSATE SODIUM TABLET 2 TAB PO ×2 (08:13→17:49)
[2024-09-01] MEDS: FAMOTIDINE 20 MG TABLET PO ×2 (08:13→21:21)
[2024-09-01] MEDS: EMPAGLIFLOZIN 10 MG TABLET PO (08:13)
[2024-09-01] MEDS: ENOXAPARIN 40 MG/0.4 ML SYRINGE SUB-Q (08:17)
[2024-09-01 11:39] LABS: Glucose Point of Care 197 mg/dl (65-105)
--- NOTE | 2024-09-01 12:42 | P.PNIM_ITS ---
Progress Note: A&P Assessment and Plan (1) Heel ulcer due to DM: Qualifiers: Diabetes mellitus type: type 2 Laterality: left Non-pressure ulcer stage: with necrosis of muscle Qualified Code(s): E11.621 - Type 2 diabetes mellitus with foot ulcer; L97.423 - Non-pressure chronic ulcer of left heel and midfoot with necrosis of muscle Code(s): E11.621 - Type 2 diabetes mellitus with foot ulcer; L97.409 - Non-pressure chronic ulcer of unspecified heel and midfoot with unspecified severity Status: Acute Assessment and Plan: MRI showed left calcaneus early osteomyelitis Blood culture s/p meropenem and vancomycin S/p I and D, wound culture positive Continue Augmentin, continue wound vac awaiting surgery clearance (2) Hypertension: Qualifiers: Hypertension type: primary hypertension Qualified Code(s): I10 - Essential (primary) hypertension Code(s): I10 - Essential (primary) hypertension Status: Acute Assessment and Plan: Patient does not appear to be on antihypertensives Continue to monitor (3) Chronic systolic (congestive) heart failure: Code(s): I50.22 - Chronic systolic (congestive) heart failure Status: Acute Assessment and Plan: Euvolemic Monitor for fluid overload Patient on diuretics (4) CAD (coronary artery disease): Qualifiers: Coronary Disease-Associated Artery/Lesion type: [place]ake artery [place] vs. transplanted heart: kake heart Associated angina: with stable angina Qualified Code(s): I25.118 - Atherosclerotic heart disease of k[place] coronary artery with other forms of angina pectoris Code(s): I25.10 - Atherosclerotic heart disease of kake coronary artery without angina pectoris Status: Acute Assessment and Plan: Continue Jardiance (5) Type 2 diabetes mellitus with hyperglycemia: Qualifiers: Diabetes mellitus extermination inspector insulin use: with halfway use Qualified Code(s): E11.65 - Type 2 diabetes mellitus with hyperglycemia; Z79.4 - extermination inspector (current) use of insulin Code(s): E11.65 - Type 2 diabetes mellitus with hyperglycemia Status: Acute Assessment and Plan: Uncontrolled hemoglobin A1c 11.3 Hold home metformin SSI and Lantus Plan DVT prophylaxis on Sq Lovenox Subjective Date/time seen: 09/01/24 12:42 Interval history: Comfortable at bedside awaiting surgery clearance for discharge Review of Systems Review of Systems: General: well appearing, appears stated age. HEENT: normocephalic, atraumatic. Mucous membranes moist. EOMI, PERRLA, bilateral sclera anicteric, no conjunctival injection. Neck supple without JVD, lymphadenopathy, or bruit. Respiratory: clear to ascultation bilaterally. No rales/rhonic/wheezes. Cardiovascular: Regular rate and rhythm, normal S1-S2 upon ascultation. No murmurs, rubs, or clicks. PMI is nondisplaced, capillary refill less than 3 second. Abdomen: Soft, round, no pulsatile masses, nondistended and nontender. No rebound, no guarding. No CVA tenderness, no hepatosplenomegaly. Bowel sounds present to all four quadrants. No high pitch or tinkling sounds, resonant to percussion. Extremities: No cyanosis, clubbing, or edema present. Pulses are palpable 2/2. Active ROM to all four extremities. Neuro: Alert and orientated x 4. PERRLA. Cranial nerves 2-12 intact without focal deficit. Skin: Warm, dry, and intact, without rash, erythema, or lesion. Psych: pleasant, cooperative, normal speech, normal affect, no hallucinations, no dysarthia Exam Narrative: General: well appearing, appears stated age. HEENT: normocephalic, atraumatic. Mucous membranes moist. EOMI, PERRLA, bilateral sclera anicteric, no conjunctival injection. Neck supple without JVD, lymphadenopathy, or bruit. Respiratory: clear to auscultation bilaterally. No rales/rhonchi/wheezes. Cardiovascular: Regular rate and rhythm, normal S1-S2 upon auscultation. No murmurs, rubs, or clicks. PMI is nondisplaced, capillary refill less than 3 second. Abdomen: Soft, round, no pulsatile masses, nondistended and nontender. No rebound, no guarding. No CVA tenderness, no hepatosplenomegaly. Bowel sounds present to all four quadrants. No high pitch or tinkling sounds, resonant to percussion. Extremities: No cyanosis, clubbing, or edema present. Pulses are palpable 2/2. r foot with dressing clean dry intact no erythema on lower extremity Neuro: Alert and orientated x 4. PERRLA. Cranial nerves 2-12 intact without focal deficit. Skin: left foot wound dressing and wound vac in place Objective Data Vital Signs Vital Signs: Vital Signs - 24 hr 08/31/24 16:13 08/31/24 22:00 08/31/24 22:32 Temperature 97.6 F 97 F L Pulse Rate 94 82 Respiratory Rate 16 18 Blood Pressure 145/80 H 142/73 H Pulse Oximetry 100 98 Oxygen Delivery Room Air 09/01/24 06:00 09/01/24 09:00 Temperature 97.4 F L Pulse Rate 76 Respiratory Rate 16 Blood Pressure 139/71 Pulse Oximetry 97 Oxygen Delivery Room Air Intake/Output Intake/Output: Intake & Output 08/29/24 08/30/24 08/31/24 09/01/24 23:59 23:59 23:59 23:59 Intake Total 2230 2090 1402 540 Output Total 500 1300 1725 Balance 1730 790 -323 540 Meds/Results Medications: Active Medications Generic Name Dose Route Start Last Admin Trade Name Freq PRN Reason Stop Dose Admin Acetaminophen 1,000 mg 08/30/24 14:28 Acetaminophen 500 Mg Tablet PO Q6H PRN pain 1-3 Hydrocodone Bitart/Acetaminophen 1 tab 08/30/24 14:28 08/31/24 08:44 Hydrocodone/Acetaminophen (*Crx) 5-325 Mg Tablet PO 1 tab Q3H PRN Administration Pain Rated 4-6 Hydrocodone Bitart/Acetaminophen 2 tab 08/30/24 14:28 09/01/24 09:03 Hydrocodone/Acetaminophen (*Crx) 5-325 Mg Tablet PO 2 tab Q6H PRN Administration Pain Rated 7-10 Amoxicillin/Clavulanate Potassium 1 tablet 08/30/24 14:40 09/01/24 08:13 Amoxicillin/Clavulanate K 875-125 Mg Tab PO 1 tablet Q12HR RANDA Administration Dextrose 12.5 gm 08/27/24 15:34 08/30/24 07:19 Dextrose 50% 25 Gm/50 Ml Syringe IV PUSH 12.5 gm PRN PRN Administration Hypoglycemia Protocol Diazepam 5 mg 08/30/24 14:28 Diazepam (*Crx) 5 Mg Tablet PO Q8H PRN Muscle Spasm Empagliflozin 10 mg 08/28/24 09:00 09/01/24 08:13 Empagliflozin 10 Mg Tablet PO 10 mg DAILY RANDA Administration Enoxaparin Sodium 40 mg 08/29/24 09:00 09/01/24 08:17 Enoxaparin 40 Mg/0.4 Ml Syringe SUB-Q 40 mg DAILY RANDA Administration Famotidine 20 mg 08/30/24 21:00 09/01/24 08:13 Famotidine 20 Mg Tablet PO 20 mg Q12HR RANDA Administration Glucagon 1 mg 08/27/24 15:34 Glucagon For Inj 1 Mg Vial IM PRN PRN Hypoglycemia Protocol Glucose 15 gm 08/27/24 15:34 08/30/24 07:33 Glucose Oral Gel 15 Gm Of Glucse In 37.5 Gm Tube PO 15 gm PRN PRN Administration Hypoglycemia Protocol Dextrose 1,000 mls @ 100 mls/hr 08/27/24 15:34 Dextrose 5% 1,000 Ml IVPB PRN PRN Hypoglycemia Protocol Insulin Aspart 1 - 2 units 08/27/24 21:00 08/31/24 22:32 Insulin Aspart (*Bkc) 100 Units/Ml SUB-Q Not Given HS [facility] Protocol Insulin Aspart 3 - 6 units 08/28/24 08:00 09/01/24 11:48 Insulin Aspart (*Bkc) 100 Units/Ml SUB-Q Not Given TIDWM [facility] Protocol Insulin Glargine 10 units 08/30/24 18:00 Insulin Glargine (*Bkc) 100 Units/Ml SUB-Q QPM [facility] Lisinopril 5 mg 08/29/24 11:05 09/01/24 08:13 Lisinopril 5 Mg Tablet PO 5 mg QAM RANDA Administration Meclizine HCl 50 mg 08/27/24 18:30 09/01/24 08:13 Meclizine Hcl 25 Mg Tablet PO 50 mg BID RANDA Administration Metformin HCl 500 mg 08/30/24 17:00 09/01/24 08:13 Metformin Hcl 500 Mg Tablet PO 500 mg BID RANDA Administration Naloxone HCl 0.1 mg 08/30/24 14:28 Naloxone Hcl 0.4 Mg/Ml Vial IV PUSH Q2M PRN Opiate Reversal Ondansetron HCl 4 mg 08/30/24 14:28 Ondansetron Inj 4 Mg/2 Ml Vial IV PUSH Q4H PRN Nausea And Vomiting Polyethylene Glycol 17 gm 08/31/24 09:00 09/01/24 08:14 Polyethylene Glycol 3350 17 Gm Powd.Pack PO Not Given QAM ARNDA Senna/Docusate Sodium 2 tab 08/30/24 17:00 09/01/24 08:13 Senna/Docusate Sodium Tablet PO 2 tab BID RANDA Administration Radiology Results: ITS Impressions Ankle Brachial Index 08/27/24 11:25 IMPRESSION: Normal RANDAL. Foot X-Ray 08/27/24 11:31 IMPRESSION: 1. Soft tissue gas at the heel fat pad with likely related to an overlying skin ulceration. Differential for soft tissue gas includes necrotizing fasciitis which is ultimately a clinical diagnosis. No associated osteomyelitis. Findings were discussed with Keily Centeno, the nurse caring for the patient, at 11:37 AM. 2. Mild polyarticular osteoarthritis in the mid and forefoot with erosions at the heads of multiple proximal phalanges with displacement appearance most suggestive of gout. Foot MRI 08/28/24 11:37 IMPRESSION 1. Numerous foci of soft tissue gas localized to the heel fat pad surrounding a skin ulceration without abscess. 2. Marrow edema and enhancement along the underlying plantar/lateral margin of the posterior tuberosity of the calcaneus which could be reactive or due to early osteomyelitis although there is no definitive cortical erosion or geographic loss of T1 fat signal to more specifically suggest osteomyelitis. 3. Mild to moderate polyarticular osteoarthritis in the midfoot. 4. Chronic sprains of the deep deltoid ligament and anterior inferior tibiofibular ligament. Labs Labs: Laboratory Results - last 24 hr 08/31/24 08/31/24 09/01/24 16:23 20:29 05:47 WBC 9.3 RBC 4.35 L Hgb 12.8 L Hct 40.3 L MCV 92.6 MCH 29.4 MCHC 31.8 L RDW 11.5 Plt Count 390 H MPV 9.9 Immature Gran % (Auto) 0.5 Neut % (Auto) 73.7 H Lymph % (Auto) 15.0 L Crawford % (Auto) 7.7 Eos % (Auto) 2.6 Baso % (Auto) 0.5 Lymph # (Auto) 1.40 Crawford # (Auto) 0.7 H Eos # (Auto) 0.2 Baso # (Auto) 0.1 Abs Immat Gran (auto) 0.05 H Absolute Neuts (auto) 6.9 H Absolute Nucleated RBC 0.000 Nucleated RBC % 0.0 Sodium 131 L Potassium 4.1 Chloride 92 L Carbon Dioxide 33 H Anion Gap 6 BUN 12 Creatinine 0.57 L Estim Creat Clear Calc 112 Estimated GFR > 60 Glucose 131 H POC Capillary Glucose 153 H 189 H Lactic Acid 1.0 Calcium 8.4 Magnesium 1.8 Total Bilirubin 0.8 AST 29 ALT 12 Alkaline Phosphatase 80 Total Protein 7.0 Albumin 3.2 L 09/01/24 09/01/24 07:23 11:34 WBC RBC Hgb Hct MCV MCH MCHC RDW Plt Count MPV Immature Gran % (Auto) Neut % (Auto) Lymph % (Auto) Crawford % (Auto) Eos % (Auto) Baso % (Auto) Lymph # (Auto) Crawford # (Auto) Eos # (Auto) Baso # (Auto) Abs Immat Gran (auto) Absolute Neuts (auto) Absolute Nucleated RBC Nucleated RBC % Sodium Potassium Chloride Carbon Dioxide Anion Gap BUN Creatinine Estim Creat Clear Calc Estimated GFR Glucose POC Capillary Glucose 121 H 197 H Lactic Acid Calcium Magnesium Total Bilirubin AST ALT Alkaline Phosphatase Total Protein Albumin Quality VTE Prophylaxis VTE prophylaxis: mechanical ordered and pharmacologic ordered
[2024-09-01 16:38] LABS: Glucose Point of Care 157 mg/dl (65-105)
[2024-09-01 17:00] VITALS: BP 133/77; PULSE 90; RESP 18; TEMP 36.8; O2SAT 96
[2024-09-01 20:34] VITALS: O2SAT 98
[2024-09-01 21:51] LABS: Glucose Point of Care 185 mg/dl (65-105)
[2024-09-01 22:00] VITALS: BP 147/87; PULSE 55; RESP 18; TEMP 36; O2SAT 98
[2024-09-02 05:48] VITALS: BP 137/88; PULSE 58; RESP 18; TEMP 36.1; O2SAT 97
[2024-09-02] MEDS: HYDROcodone/acetaminophen (*CRX) 5-325 MG TABLET 1 TAB PO (06:19)
[2024-09-02 07:54] LABS: Glucose Point of Care 107 mg/dl (65-105)
[2024-09-02] MEDS: EMPAGLIFLOZIN 10 MG TABLET PO (08:39)
[2024-09-02] MEDS: lisinopriL 5 MG TABLET PO (08:39)
[2024-09-02] MEDS: AMOXICILLIN/CLAVULANATE K 875-125 MG TAB 1 TABLET PO ×2 (08:39→20:47)
[2024-09-02] MEDS: SENNA/DOCUSATE SODIUM TABLET 2 TAB PO ×2 (08:39→16:43)
[2024-09-02] MEDS: FAMOTIDINE 20 MG TABLET PO ×2 (08:39→20:48)
[2024-09-02] MEDS: ENOXAPARIN 40 MG/0.4 ML SYRINGE SUB-Q (08:40)
[2024-09-02] MEDS: metFORMIN HCL 500 MG TABLET PO ×2 (08:40→16:45)
[2024-09-02] MEDS: MECLIZINE HCL 25 MG TABLET 50 MG PO ×2 (08:40→16:44)
[2024-09-02] MEDS: polyethylene glycoL 3350 17 GM POWD.PACK PO (08:45)
--- NOTE | 2024-09-02 09:29 | P.PNOP_ITS ---
Progress Note: A&P Assessment and Plan (1) Heel ulcer due to DM: Qualifiers: Diabetes mellitus type: type 2 Laterality: left Non-pressure ulcer stage: with necrosis of muscle Qualified Code(s): E11.621 - Type 2 diabetes mellitus with foot ulcer; L97.423 - Non-pressure chronic ulcer of left heel and midfoot with necrosis of muscle Code(s): E11.621 - Type 2 diabetes mellitus with foot ulcer; L97.409 - Non-pressure chronic ulcer of unspecified heel and midfoot with unspecified severity Status: Acute Assessment and Plan: POD #3: Preoperative Testing: ABIs normal. Initial radiographs of the left foot reveal soft tissue gas at the heel fat pad, likely related to an overlying skin ulceration. Differential for soft tissue gas includes necrotizing fasciitis. Mild polyarticular osteoarthritis in the mid and forefoot with erosions at the heads of multiple proximal phalanges with displacement appearance most suggestive of gout. Preoperative MRI with evidence of possible early osteomyelitis. Blood cultures with NGTD. Preoperative wound cultures reveal Peptostreptococcus species, Clostridium sporogenes and Group C Streptococcus. Dual antibiotic coverage with Bactrim & Augmentin following recommendations from Pharm ID. Wound VAC removed today. Significant improvement in tissue appearance. Discussed possible need for return to OR with synthetic graft placement as an outpatient vs. possible recurrent debridement prior to dischagre. Will continue with Wound VAC dressing changes three times/week at discharge. Biweekly [facility] wound clinic monitoring. Care Coordination to begin HH orders. Diabetic Nurse Educator needs. PWB with reverse post op shoe. Heel offloading while in bed. Will discuss further surgical needs with attending MD and update plan of care accordingly to determine discharge plans. (2) Diabetic ulcer of right foot: Qualifiers: Diabetic foot ulcer location: other Diabetes mellitus type: type 2 Non-pressure ulcer stage: with necrosis of muscle Qualified Code(s): E11.621 - Type 2 diabetes mellitus with foot ulcer; L97.513 - Non-pressure chronic ulcer of other part of right foot with necrosis of muscle Code(s): E11.621 - Type 2 diabetes mellitus with foot ulcer; L97.519 - Non-pressure chronic ulcer of other part of right foot with unspecified severity Status: Inactive Assessment and Plan: Follow up of right DFU. Patient with a history of peripheral neuropathy and type 2 diabetes, uncontrolled with most recent HgB A1C in November of 12%. History of previous infection with osteo right foot. Previous radiographs show deformity of the 3rd and 4th MTP joints now with extension deformity of the toes and increased plantar pressure of the forefoot. Wound with improvement in comparison to previous. Abundant callus formation. No signs of infection. (3) Peripheral sensory neuropathy due to type 2 diabetes mellitus: Code(s): E11.42 - Type 2 diabetes mellitus with diabetic polyneuropathy Status: Acute (4) Type 2 diabetes mellitus with hyperglycemia: Qualifiers: Diabetes mellitus intermission coordinator insulin use: with intermission coordinator use Qualified Code(s): E11.65 - Type 2 diabetes mellitus with hyperglycemia; Z79.4 - [facility] (current) use of insulin Code(s): E11.65 - Type 2 diabetes mellitus with hyperglycemia Status: Acute Assessment and Plan: Uncontrolled DM. HgB A1C >11%. Need diabetic nurse educator counseling with family present. Close diabetic control. Defer to medicine team. Plan Reviewed history, exam, radiographs and current labs with attending MD and covering surgeon, Dr. Lam, who agrees with current plan as indicated above. No further recommendations from Dr. Lam at this time. Subjective Subjective Date/Time Seen: 09/02/24 09:29 Post Op day: 3 Interval history: POD #3: Left Heel Debridement and Wound VAC Placement Patient doing well. Anxious about care plans. Hopeful for discharge. Review of Systems Review of Systems: All systems reviewed & are unremarkable except as noted in HPI and below Exam Const: General: comfortable and no acute distress Resp: Effort & Inspection: normal respiratory effort Cardio: Rate: regular rate Rhythm: regular rhythm GI: GI Palp: Yes Soft to palpation Skin: Wounds: wounds noted (see extremity ) Extrem: Left lower extremity: foot Details: abnormal to inspection, vascular exam Details: dorsalis pedis pulse present and motor-sensory exam light-touch abnormal; no tenderness, no unusual warmth and no ecchymosis Other: Heel wound measures 8x5x2 cm, 95% red/pink wound bed. Wound Vac changed today. Unable to see bone, palpable but tissue covering now. Surrounding tissue with significant improvement in overall redness/warmth. Objective Data Vital Signs Vital Signs: Vital Signs - 24 hr 09/01/24 17:00 09/01/24 20:34 09/01/24 21:21 Temperature 36.8 C Pulse Rate 90 Respiratory Rate 18 Blood Pressure 133/77 Pulse Oximetry 96 98 Oxygen Delivery Room Air Room Air 09/01/24 22:00 09/02/24 05:48 Temperature 36.0 C L 36.1 C L Pulse Rate 55 L 58 L Respiratory Rate 18 18 Blood Pressure 147/87 H 137/88 Pulse Oximetry 98 97 Oxygen Delivery Intake/Output Intake/Output: Intake & Output 08/30/24 08/31/24 09/01/24 09/02/24 23:59 23:59 23:59 23:59 Intake Total 2090 1402 2120 586 Output Total 1300 1725 Balance 790 -323 2120 586 Meds/Results Medications: Active Medications Generic Name Dose Route Start Last Admin Trade Name Freq PRN Reason Stop Dose Admin Acetaminophen 1,000 mg 08/30/24 14:28 Acetaminophen 500 Mg Tablet PO Q6H PRN pain 1-3 Hydrocodone Bitart/Acetaminophen 1 tab 08/30/24 14:28 09/02/24 06:19 Hydrocodone/Acetaminophen (*Crx) 5-325 Mg Tablet PO 1 tab Q3H PRN Administration Pain Rated 4-6 Hydrocodone Bitart/Acetaminophen 2 tab 08/30/24 14:28 09/01/24 21:21 Hydrocodone/Acetaminophen (*Crx) 5-325 Mg Tablet PO 2 tab Q6H PRN Administration Pain Rated 7-10 Amoxicillin/Clavulanate Potassium 1 tablet 08/30/24 14:40 09/02/24 08:39 Amoxicillin/Clavulanate K 875-125 Mg Tab PO 09/20/24 23:59 1 tablet Q12HR RANDA Administration Dextrose 12.5 gm 08/27/24 15:34 08/30/24 07:19 Dextrose 50% 25 Gm/50 Ml Syringe IV PUSH 12.5 gm PRN PRN Administration Hypoglycemia Protocol Diazepam 5 mg 08/30/24 14:28 Diazepam (*Crx) 5 Mg Tablet PO Q8H PRN Muscle Spasm Empagliflozin 10 mg 08/28/24 09:00 09/02/24 08:39 Empagliflozin 10 Mg Tablet PO 10 mg DAILY RANDA Administration Enoxaparin Sodium 40 mg 08/29/24 09:00 09/02/24 08:40 Enoxaparin 40 Mg/0.4 Ml Syringe SUB-Q 40 mg DAILY RANDA Administration Famotidine 20 mg 08/30/24 21:00 09/02/24 08:39 Famotidine 20 Mg Tablet PO 20 mg Q12HR RANDA Administration Glucagon 1 mg 08/27/24 15:34 Glucagon For Inj 1 Mg Vial IM PRN PRN Hypoglycemia Protocol Glucose 15 gm 08/27/24 15:34 08/30/24 07:33 Glucose Oral Gel 15 Gm Of Glucse In 37.5 Gm Tube PO 15 gm PRN PRN Administration Hypoglycemia Protocol Dextrose 1,000 mls @ 100 mls/hr 08/27/24 15:34 Dextrose 5% 1,000 Ml IVPB PRN PRN Hypoglycemia Protocol Insulin Aspart 1 - 2 units 08/27/24 21:00 09/01/24 21:20 Insulin Aspart (*Bkc) 100 Units/Ml SUB-Q Not Given HS RANDA Protocol Insulin Aspart 3 - 6 units 08/28/24 08:00 09/02/24 08:40 Insulin Aspart (*Bkc) 100 Units/Ml SUB-Q Not Given TIDWM [facility] Protocol Insulin Glargine 10 units 08/30/24 18:00 Insulin Glargine (*Bkc) 100 Units/Ml SUB-Q QPM RANDA Lisinopril 5 mg 08/29/24 11:05 09/02/24 08:39 Lisinopril 5 Mg Tablet PO 5 mg QAM RANDA Administration Meclizine HCl 50 mg 08/27/24 18:30 09/02/24 08:40 Meclizine Hcl 25 Mg Tablet PO 50 mg BID RANDA Administration Metformin HCl 500 mg 08/30/24 17:00 09/02/24 08:40 Metformin Hcl 500 Mg Tablet PO 500 mg BID RANDA Administration Naloxone HCl 0.1 mg 08/30/24 14:28 Naloxone Hcl 0.4 Mg/Ml Vial IV PUSH Q2M PRN Opiate Reversal Ondansetron HCl 4 mg 08/30/24 14:28 Ondansetron Inj 4 Mg/2 Ml Vial IV PUSH Q4H PRN Nausea And Vomiting Polyethylene Glycol 17 gm 08/31/24 09:00 09/02/24 08:45 Polyethylene Glycol 3350 17 Gm Powd.Pack PO 17 gm QAM RANDA Administration Senna/Docusate Sodium 2 tab 08/30/24 17:00 09/02/24 08:39 Senna/Docusate Sodium Tablet PO 2 tab BID RANDA Administration Trimethoprim/Sulfamethoxazole 1 tab 09/02/24 09:45 Sulfamethoxazole/Trimethoprim 800/160 Mg Ds Tablet PO 09/20/24 23:59 Q12HR RANDA Radiology Results: ITS Impressions Ankle Brachial Index 08/27/24 11:25 IMPRESSION: Normal RANDAL. Foot X-Ray 08/27/24 11:31 IMPRESSION: 1. Soft tissue gas at the heel fat pad with likely related to an overlying skin ulceration. Differential for soft tissue gas includes necrotizing fasciitis which is ultimately a clinical diagnosis. No associated osteomyelitis. Findings were discussed with Keily Centeno, the nurse caring for the patient, at 11:37 AM. 2. Mild polyarticular osteoarthritis in the mid and forefoot with erosions at the heads of multiple proximal phalanges with displacement appearance most suggestive of gout. Foot MRI 08/28/24 11:37 IMPRESSION 1. Numerous foci of soft tissue gas localized to the heel fat pad surrounding a skin ulceration without abscess. 2. Marrow edema and enhancement along the underlying plantar/lateral margin of the posterior tuberosity of the calcaneus which could be reactive or due to early osteomyelitis although there is no definitive cortical erosion or geographic loss of T1 fat signal to more specifically suggest osteomyelitis. 3. Mild to moderate polyarticular osteoarthritis in the midfoot. 4. Chronic sprains of the deep deltoid ligament and anterior inferior tibiofibular ligament. Labs Labs: Laboratory Results - last 24 hr 09/01/24 09/01/24 09/01/24 11:34 16:25 21:01 POC Capillary Glucose 197 H 157 H 185 H 09/02/24 07:45 POC Capillary Glucose 107 H
[2024-09-02] MEDS: SULFAMETHOXAZOLE/TRIMETHOPRIM 800/160 MG DS TABLET 1 TAB PO ×2 (10:13→20:48)
[2024-09-02 11:34] LABS: Glucose Point of Care 129 mg/dl (65-105)
--- NOTE | 2024-09-02 13:09 | PM.IMPN ---
Progress Note: A&P Assessment and Plan (1) Heel ulcer due to DM: Qualifiers: Diabetes mellitus type: type 2 Laterality: left Non-pressure ulcer stage: with necrosis of muscle Qualified Code(s): E11.621 - Type 2 diabetes mellitus with foot ulcer; L97.423 - Non-pressure chronic ulcer of left heel and midfoot with necrosis of muscle Code(s): E11.621 - Type 2 diabetes mellitus with foot ulcer; L97.409 - Non-pressure chronic ulcer of unspecified heel and midfoot with unspecified severity Status: Acute Assessment and Plan: MRI showed left calcaneus early osteomyelitis Blood culture s/p meropenem and vancomycin S/p I and D, wound culture positive Continue Augmentin, continue wound vac Ortho reviewed today and may have a second debridement awaiting their plan continue WOund vac (2) Hypertension: Qualifiers: Hypertension type: primary hypertension Qualified Code(s): I10 - Essential (primary) hypertension Code(s): I10 - Essential (primary) hypertension Status: Acute Assessment and Plan: Patient does not appear to be on antihypertensives Continue to monitor (3) Chronic systolic (congestive) heart failure: Code(s): I50.22 - Chronic systolic (congestive) heart failure Status: Acute Assessment and Plan: Euvolemic Monitor for fluid overload Patient on diuretics (4) CAD (coronary artery disease): Qualifiers: Coronary Disease-Associated Artery/Lesion type: [place] artery [place] vs. 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 HEENT: normocephalic, atraumatic. Mucous membranes moist. EOMI, PERRLA, bilateral sclera anicteric, no conjunctival injection. Neck supple without JVD, lymphadenopathy, or bruit. Respiratory: clear to auscultation bilaterally. No rales/rhonchi/wheezes. Cardiovascular: Regular rate and rhythm, normal S1-S2 upon auscultation. No murmurs, rubs, or clicks. PMI is nondisplaced, capillary refill less than 3 second. Abdomen: Soft, round, no pulsatile masses, nondistended and nontender. No rebound, no guarding. No CVA tenderness, no hepatosplenomegaly. Bowel sounds present to all four quadrants. No high pitch or tinkling sounds, resonant to percussion. Extremities: No cyanosis, clubbing, or edema present. Pulses are palpable 2/2. r foot with dressing clean dry intact no erythema on lower extremity Neuro: Alert and orientated x 4. PERRLA. Cranial nerves 2-12 intact without focal deficit. Skin: left foot wound dressing and wound vac in place Objective Data Vital Signs Vital Signs: Vital Signs - 24 hr 09/01/24 17:00 09/01/24 20:34 09/01/24 21:21 Temperature 98.2 F Pulse Rate 90 Respiratory Rate 18 Blood Pressure 133/77 Pulse Oximetry 96 98 Oxygen Delivery Room Air Room Air 09/01/24 22:00 09/02/24 05:48 09/02/24 08:40 Temperature 96.8 F L 97 F L Pulse Rate 55 L 58 L Respiratory Rate 18 18 Blood Pressure 147/87 H 137/88 Pulse Oximetry 98 97 Oxygen Delivery Room Air Intake/Output Intake/Output: Intake & Output 08/30/24 08/31/24 09/01/24 09/02/24 23:59 23:59 23:59 23:59 Intake Total 2090 1402 2120 826 Output Total 1300 1725 Balance 790 -323 2120 826 Meds/Results Medications: Active Medications Generic Name Dose Route Start Last Admin Trade Name Freq PRN Reason Stop Dose Admin Acetaminophen 1,000 mg 08/30/24 14:28 Acetaminophen 500 Mg Tablet PO Q6H PRN pain 1-3 Hydrocodone Bitart/Acetaminophen 1 tab 08/30/24 14:28 09/02/24 06:19 Hydrocodone/Acetaminophen (*Crx) 5-325 Mg Tablet PO 1 tab Q3H PRN Administration Pain Rated 4-6 Hydrocodone Bitart/Acetaminophen 2 tab 08/30/24 14:28 09/01/24 21:21 Hydrocodone/Acetaminophen (*Crx) 5-325 Mg Tablet PO 2 tab Q6H PRN Administration Pain Rated 7-10 Amoxicillin/Clavulanate Potassium 1 tablet 08/30/24 14:40 09/02/24 08:39 Amoxicillin/Clavulanate K 875-125 Mg Tab PO 09/20/24 23:59 1 tablet Q12HR RANDA Administration Dextrose 12.5 gm 08/27/24 15:34 08/30/24 07:19 Dextrose 50% 25 Gm/50 Ml Syringe IV PUSH 12.5 gm PRN PRN Administration Hypoglycemia Protocol Diazepam 5 mg 08/30/24 14:28 Diazepam (*Crx) 5 Mg Tablet PO Q8H PRN Muscle Spasm Empagliflozin 10 mg 08/28/24 09:00 09/02/24 08:39 Empagliflozin 10 Mg Tablet PO 10 mg DAILY RANDA Administration Enoxaparin Sodium 40 mg 08/29/24 09:00 09/02/24 08:40 Enoxaparin 40 Mg/0.4 Ml Syringe SUB-Q 40 mg DAILY RANDA Administration Famotidine 20 mg 08/30/24 21:00 09/02/24 08:39 Famotidine 20 Mg Tablet PO 20 mg Q12HR RANDA Administration Glucagon 1 mg 08/27/24 15:34 Glucagon For Inj 1 Mg Vial IM PRN PRN Hypoglycemia Protocol Glucose 15 gm 08/27/24 15:34 08/30/24 07:33 Glucose Oral Gel 15 Gm Of Glucse In 37.5 Gm Tube PO 15 gm PRN PRN Administration Hypoglycemia Protocol Dextrose 1,000 mls @ 100 mls/hr 08/27/24 15:34 Dextrose 5% 1,000 Ml IVPB PRN PRN Hypoglycemia Protocol Insulin Aspart 1 - 2 units 08/27/24 21:00 09/01/24 21:20 Insulin Aspart (*Bkc) 100 Units/Ml SUB-Q Not Given HS RANDA Protocol Insulin Aspart 3 - 6 units 08/28/24 08:00 09/02/24 11:41 Insulin Aspart (*Bkc) 100 Units/Ml SUB-Q Not Given TIDWM [facility] Protocol Insulin Glargine 10 units 08/30/24 18:00 Insulin Glargine (*Bkc) 100 Units/Ml SUB-Q QPM [facility] Lisinopril 5 mg 08/29/24 11:05 09/02/24 08:39 Lisinopril 5 Mg Tablet PO 5 mg QAM RANDA Administration Meclizine HCl 50 mg 08/27/24 18:30 09/02/24 08:40 Meclizine Hcl 25 Mg Tablet PO 50 mg BID RANDA Administration Metformin HCl 500 mg 08/30/24 17:00 09/02/24 08:40 Metformin Hcl 500 Mg Tablet PO 500 mg BID RANDA Administration Naloxone HCl 0.1 mg 08/30/24 14:28 Naloxone Hcl 0.4 Mg/Ml Vial IV PUSH Q2M PRN Opiate Reversal Ondansetron HCl 4 mg 08/30/24 14:28 Ondansetron Inj 4 Mg/2 Ml Vial IV PUSH Q4H PRN Nausea And Vomiting Polyethylene Glycol 17 gm 08/31/24 09:00 09/02/24 08:45 Polyethylene Glycol 3350 17 Gm Powd.Pack PO 17 gm QAM RANDA Administration Senna/Docusate Sodium 2 tab 08/30/24 17:00 09/02/24 08:39 Senna/Docusate Sodium Tablet PO 2 tab BID RANDA Administration Trimethoprim/Sulfamethoxazole 1 tab 09/02/24 09:45 09/02/24 10:13 Sulfamethoxazole/Trimethoprim 800/160 Mg Ds Tablet PO 09/20/24 23:59 1 tab Q12HR RANDA Administration Radiology Results: ITS Impressions Ankle Brachial Index 08/27/24 11:25 IMPRESSION: Normal RANDAL. Foot X-Ray 08/27/24 11:31 IMPRESSION: 1. Soft tissue gas at the heel fat pad with likely related to an overlying skin ulceration. Differential for soft tissue gas includes necrotizing fasciitis which is ultimately a clinical diagnosis. No associated osteomyelitis. Findings were discussed with Keily Centeno, the nurse caring for the patient, at 11:37 AM. 2. Mild polyarticular osteoarthritis in the mid and forefoot with erosions at the heads of multiple proximal phalanges with displacement appearance most suggestive of gout. Foot MRI 08/28/24 11:37 IMPRESSION 1. Numerous foci of soft tissue gas localized to the heel fat pad surrounding a skin ulceration without abscess. 2. Marrow edema and enhancement along the underlying plantar/lateral margin of the posterior tuberosity of the calcaneus which could be reactive or due to early osteomyelitis although there is no definitive cortical erosion or geographic loss of T1 fat signal to more specifically suggest osteomyelitis. 3. Mild to moderate polyarticular osteoarthritis in the midfoot. 4. Chronic sprains of the deep deltoid ligament and anterior inferior tibiofibular ligament. Labs Labs: Laboratory Results - last 24 hr 09/01/24 09/01/24 09/02/24 16:25 21:01 07:45 POC Capillary Glucose 157 H 185 H 107 H 09/02/24 11:09 POC Capillary Glucose 129 H Quality VTE Prophylaxis VTE prophylaxis: mechanical ordered and pharmacologic ordered
[2024-09-02 14:00] VITALS: BP 145/72; PULSE 106; RESP 18; TEMP 36.1; O2SAT 98
[2024-09-02] MEDS: ACETAMINOPHEN 500 MG TABLET 1000 MG PO (14:57)
[2024-09-02 16:36] LABS: Glucose Point of Care 135 mg/dl (65-105)
[2024-09-02 19:33] VITALS: BP 142/75; PULSE 95; RESP 16; TEMP 36; O2SAT 94
[2024-09-02 20:00] VITALS: PULSE 95; RESP 16; O2SAT 94
[2024-09-02] MEDS: INSULIN ASPART (*BKC) 100 UNITS/ML SUB-Q (20:53)
[2024-09-02 20:59] LABS: Glucose Point of Care 201 mg/dl (65-105)
[2024-09-03] MEDS: HYDROcodone/acetaminophen (*CRX) 5-325 MG TABLET 2 TAB PO (00:40)
[2024-09-03 04:18] VITALS: BP 135/73; PULSE 80; RESP 16; TEMP 36.2; O2SAT 98
[2024-09-03 06:29] LABS: Basophils Percent Auto 0.7 % (0.2-1.2); Eosinophils Absolute Auto 0.1 K/mm3 (0-0.3); Eosinophils Percent Auto 1.5 % (0-4.4); Hematocrit 37.9 % (42.0-52.0); Hemoglobin 12.1 g/dL (14.0-18.0); Immature Granulocyte Absolute 0.02 K/mm3 (0.00-0.031); Immature Granulocyte Percent A 0.3 % (0-0.5); Lymphocytes Absolute Auto 1.36 K/mm3 (0.9-3.2); Lymphocytes Percent Auto 23.1 % (18.3-44.2); Mean Corpuscular HGB Conc 31.9 g/dl (32-36); Mean Corpuscular Hemoglobin 29.2 pg (26-34); Mean Corpuscular Volume 91.3 fl (80-100); Mean Platelet Volume 9.2 fl (7.4-10.4); Monocytes Absolute Auto 0.6 K/mm3 (0.1-0.6); Monocytes Percent Auto 9.8 % (2.6-8.5); Neutrophils Absolute Auto 3.8 K/mm3 (1.3-6.7); Neutrophils Percent Auto 64.6 % (45.5-73.1); Platelet Count Result 380 k/mm3 (150-375); Red Blood Count 4.15 M/mm3 (4.6-6.20); Red Cell Distribution Width 11.7 % (11.5-14.5); White Blood Count 5.9 K/mm3 (4.5-10.0)
[2024-09-03 06:40] LABS: Alanine Aminotransferase 13 U/L (6-50); Albumin Level 3.1 g/dL (3.5-5.1); Alkaline Phosphatase 67 U/L (38-126); Anion Gap 8 mmol/L (4-12); Aspartate Amino Transferase 25 U/L (17-59); Bilirubin,Total 0.6 mg/dL (0.2-1.3); Blood Urea Nitrogen 13 mg/dL (9-20); Calcium 8.6 mg/dL (8.4-10.2); Carbon Dioxide 29 mmol/L (22-30); Chloride 95 mmol/L (98-107); Estimated CRCL calculation 126 ml/min; Estimated Glomerular Filt Rate > 60; Glucose 87 mg/dL (65-110); Magnesium 1.9 mg/dL (1.6-2.3); Potassium 4.2 mmol/L (3.4-5.0); Sodium 132 mmol/L (137-145)
[2024-09-03 07:37] LABS: Glucose Point of Care 83 mg/dl (65-105)
[2024-09-03] MEDS: lisinopriL 5 MG TABLET PO (08:56)
[2024-09-03] MEDS: FAMOTIDINE 20 MG TABLET PO ×2 (08:56→21:00)
[2024-09-03] MEDS: metFORMIN HCL 500 MG TABLET PO ×2 (08:56→16:49)
[2024-09-03] MEDS: SULFAMETHOXAZOLE/TRIMETHOPRIM 800/160 MG DS TABLET 1 TAB PO ×2 (08:56→21:00)
[2024-09-03] MEDS: EMPAGLIFLOZIN 10 MG TABLET PO (08:56)
[2024-09-03] MEDS: AMOXICILLIN/CLAVULANATE K 875-125 MG TAB 1 TABLET PO ×2 (08:56→21:00)
[2024-09-03] MEDS: ENOXAPARIN 40 MG/0.4 ML SYRINGE SUB-Q (08:57)
[2024-09-03] MEDS: MECLIZINE HCL 25 MG TABLET 50 MG PO ×2 (08:57→16:49)
[2024-09-03 09:03] VITALS: TEMP 36.2
[2024-09-03] MEDS: ACETAMINOPHEN 500 MG TABLET 1000 MG PO ×2 (09:03→17:05)
[2024-09-03 11:33] LABS: Glucose Point of Care 148 mg/dl (65-105)
[2024-09-03 14:00] VITALS: BP 132/77; PULSE 86; RESP 18; TEMP 36.3; O2SAT 97
--- NOTE | 2024-09-03 15:33 | PM.DS ---
DS: Admitting Diagnosis Discharge Date 09/04/2024 Admitting Diagnosis Right foot wound DS: Discharge Diagnosis Discharge Diagnosis (1) Heel ulcer due to DM: Qualifiers: Diabetes mellitus type: type 2 Laterality: left Non-pressure ulcer stage: with necrosis of muscle Qualified Code(s): E11.621 - Type 2 diabetes mellitus with foot ulcer; L97.423 - Non-pressure chronic ulcer of left heel and midfoot with necrosis of muscle Code(s): E11.621 - Type 2 diabetes mellitus with foot ulcer; L97.409 - Non-pressure chronic ulcer of unspecified heel and midfoot with unspecified severity Status: Acute Assessment and Plan: MRI showed left calcaneus early osteomyelitis Blood culture s/p meropenem and vancomycin S/p I and D, wound culture positive Continue Augmentin, continue wound vac Ortho Signed off Continue Wound vac (2) Hypertension: Qualifiers: Hypertension type: primary hypertension Qualified Code(s): I10 - Essential (primary) hypertension Code(s): I10 - Essential (primary) hypertension Status: Acute Assessment and Plan: Continue to monitor (3) Chronic systolic (congestive) heart failure: Code(s): I50.22 - Chronic systolic (congestive) heart failure Status: Acute Assessment and Plan: Euvolemic Monitor for fluid overload Patient on diuretics (4) CAD (coronary artery disease): Qualifiers: Associated angina: with stable angina Coronary Disease-Associated Artery/Lesion type: [place] artery [place] vs. transplanted heart: [place] heart Qualified Code(s): I25.118 - Atherosclerotic heart disease of [place] coronary artery with other forms of angina pectoris Code(s): I25.10 - Atherosclerotic heart disease of [place] coronary artery without angina pectoris Status: Acute Assessment and Plan: Continue Jardiance (5) Type 2 diabetes mellitus with hyperglycemia: Qualifiers: Diabetes mellitus [facility] insulin use: with whipper beater use Qualified Code(s): E11.65 - Type 2 diabetes mellitus with hyperglycemia; Z79.4 - longterm (current) use of insulin Code(s): E11.65 - Type 2 diabetes mellitus with hyperglycemia Status: Acute Assessment and Plan: Uncontrolled hemoglobin A1c 11.3 Hold home metformin SSI and Lantus DS: Summary Hospital Course Hospital Course: 69-year-old male past medical history of diabetes type 2, colon cancer, who systolic heart failure, and diabetic ulcer presents the hospital with infected right foot diabetic ulcer. Patient follows up at wound clinic and was referred to the hospital. Patient has been seen by Orthopedics. Patient has no complaints, he denies nausea vomiting fever chills. His lab work shows leukocytosis at 14.3, sodium of 132, chloride of 92, carbon dioxide of 33, hemoglobin A1c of 11.3, C reactive protein of 12.5, x-ray shows Soft tissue gas at the heel fat pad with likely related to an overlying skin ulceration. I assumed care on 09/03/2024 (Day of discharge): During evaluation patient reports history of colon cancer, multiple cardiac stents, multiple right leg surgeries (Nail). During this hospitalization underwent on 08/30/2024 irrigation and debridement left heel ulcer with orthopedics. On the day of discharge, the patient was seen and examined. Vital signs were stable. Physical exam were stable and labs were reviewed at length. Discharge instructions, medications, and follow-up appointments were discussed with the patient at length and all day questions were answered. ER warnings were given.Discussed with Ortho who signed off and agrees to dc. Patient need strict diabetic control. Need to start insulin since his HbA1c greater than 10. Status at Discharge Cognitive/behavioral status at discharge: Stable Time Spent with Patient Time attestation: Total time spent providing and/or coordinating discharge services:45 minutes Exam Narrative: General: well appearing, appears stated age. HEENT: normocephalic, atraumatic. Mucous membranes moist. EOMI, PERRLA, bilateral sclera anicteric, no conjunctival injection. Neck supple without JVD, lymphadenopathy, or bruit. Respiratory: clear to auscultation bilaterally. No rales/rhonchi/wheezes. Cardiovascular: Regular rate and rhythm, normal S1-S2 upon auscultation. No murmurs, rubs, or clicks. PMI is nondisplaced, capillary refill less than 3 second. Abdomen: Soft, round, no pulsatile masses, nondistended and nontender. No rebound, no guarding. No CVA tenderness, no hepatosplenomegaly. Bowel sounds present to all four quadrants. No high pitch or tinkling sounds, resonant to percussion. Extremities: No cyanosis, clubbing, or edema present. Pulses are palpable 2/2. r foot with dressing clean dry intact no erythema on lower extremity Neuro: Alert and orientated x 4. PERRLA. Cranial nerves 2-12 intact without focal deficit. Skin: left foot wound dressing and wound vac in place DS: Data Data Completed and Pending Labs on day of discharge: Labs from last 24 hours 09/03/24 09/03/24 09/03/24 11:29 07:33 06:17 WBC 5.9 RBC 4.15 L Hgb 12.1 L Hct 37.9 L MCV 91.3 MCH 29.2 MCHC 31.9 L RDW 11.7 Plt Count 380 H MPV 9.2 Immature Gran % (Auto) 0.3 Neut % (Auto) 64.6 Lymph % (Auto) 23.1 [place] % (Auto) 9.8 H Eos % (Auto) 1.5 Baso % (Auto) 0.7 Lymph # (Auto) 1.36 [place] # (Auto) 0.6 Eos # (Auto) 0.1 Baso # (Auto) 0.0 Abs Immat Gran (auto) 0.02 Absolute Neuts (auto) 3.8 Absolute Nucleated RBC 0.000 Nucleated RBC % 0.0 Sodium 132 L Potassium 4.2 Chloride 95 L Carbon Dioxide 29 Anion Gap 8 BUN 13 Creatinine 0.50 L Estim Creat Clear Calc 126 Estimated GFR > 60 Glucose 87 POC Capillary Glucose 148 H 83 Calcium 8.6 Magnesium 1.9 Total Bilirubin 0.6 AST 25 ALT 13 Alkaline Phosphatase 67 Total Protein 6.0 L Albumin 3.1 L 09/02/24 09/02/24 19:32 16:06 WBC RBC Hgb Hct MCV MCH MCHC RDW Plt Count MPV Immature Gran % (Auto) Neut % (Auto) Lymph % (Auto) [place] % (Auto) Eos % (Auto) Baso % (Auto) Lymph # (Auto) [place] # (Auto) Eos # (Auto) Baso # (Auto) Abs Immat Gran (auto) Absolute Neuts (auto) Absolute Nucleated RBC Nucleated RBC % Sodium Potassium Chloride Carbon Dioxide Anion Gap BUN Creatinine Estim Creat Clear Calc Estimated GFR Glucose POC Capillary Glucose 201 H 135 H Calcium Magnesium Total Bilirubin AST ALT Alkaline Phosphatase Total Protein Albumin Discharge Plan Discharge Attending physician on discharge: Mil Escobar Consulting providers: Ge Lam Discharging Clinician: Mil Escobar Anticipated Discharge Date/Time: 09/03/24 15:52 Patient Disposition: Home with Home Health Service Activity: may shower and no driving Diet: regular Wound Care Instructions: follow printed instructions Discharge Instructions: Per Care Coordination: Patient to have [facility] for RN/PT/OT services. Office will call patient to set up first visit, #[phone]. Wound vac dressing settings: -125mmHg low continuous pressure. Black foam only, track to ankle. Dressing change three times per week. Orthopedic Recommendations Lidia Alejo NP [phone] Limited weight bearing on the left heel. Reverse post op shoe with any necessary ambulation. Wound VAC dressing changes MWF. If you have any complications with the wound VAC (leaking, beeping) remove, apply a wet to dry gauze dressing and wrap with kerlex/tape in place. Notify home health as soon as possible. Take antibiotics per directions and to completion. Notify office of any significant changes in the wound bed or surrounding skin. Following a strict diabetic diet and compliance with diabetic medications is vital to your potential healing and decreasing risks for further surgical needs. Contact our office or the wound clinic with questions or concerns. Please visit your PCP/Steam Locomotive Firer/Fireman for diabetes follow up. Please return to ED if any signs of infection. Patient Instructions: Antibiotic Form Patient Language: [place] Stand Alone Forms: General Discharge Information Follow-up/Referrals: Ge Lam MD [Physician] - Liida Alejo FNP [Advanced Practice Nurse] - 1 Week ([facility] wound clinic. ) Discharge Medications: New sulfamethoxazole-trimethoprim 800-160 mg Tablet 1 tablet PO Q12HR 21 Days Qty: 42 0RF amoxicillin-pot clavulanate 875-125 mg tablet 1 tablet PO Q12H 21 Days Qty: 42 0RF polyethylene glycol 3350 [Miralax] 17 gram Powder In Packet 17 g PO QAM Qty: 30 0RF lisinopril 5 mg Tablet 5 mg PO QAM Qty: 30 0RF Continued meclizine [Antivert] 50 mg tablet 50 mg PO BID acetaminophen [Acetaminophen Extra Strength] 500 mg tablet 1,000 mg PO Q6H PRN (Reason: pain) metformin 500 mg tablet 500 mg PO BID Jardiance 10 mg tablet 10 mg PO DAILY 30 Days Qty: 30 6RF insulin glargine [Lantus Solostar U-100 Insulin] 100 unit/mL (3 mL) insulin pen 10 unit subcut QPM Qty: 15 1RF Discontinued sulfamethoxazole-trimethoprim [Bactrim DS] 800-160 mg tablet 1 tablet PO Q12H 10 Days Qty: 20 0RF Date of admission: 08/28/24 13:56 Primary Care Provider: Ashwin Lawler Admitting Provider: Melba Ramsay Attending physician on admission: Sandee Weiss Condition: Stable
--- NOTE | 2024-09-03 16:22 | PM.IMPN ---
Progress Note: A&P Assessment and Plan (1) Heel ulcer due to DM: Qualifiers: Diabetes mellitus type: type 2 Laterality: left Non-pressure ulcer stage: with necrosis of muscle Qualified Code(s): E11.621 - Type 2 diabetes mellitus with foot ulcer; L97.423 - Non-pressure chronic ulcer of left heel and midfoot with necrosis of muscle Code(s): E11.621 - Type 2 diabetes mellitus with foot ulcer; L97.409 - Non-pressure chronic ulcer of unspecified heel and midfoot with unspecified severity Status: Acute Assessment and Plan: MRI showed left calcaneus early osteomyelitis Blood culture s/p meropenem and vancomycin S/p I and D, wound culture positive Continue Augmentin, continue wound vac Ortho Signed off Continue Wound vac (2) Hypertension: Qualifiers: Hypertension type: primary hypertension Qualified Code(s): I10 - Essential (primary) hypertension Code(s): I10 - Essential (primary) hypertension Status: Acute Assessment and Plan: Continue to monitor (3) Chronic systolic (congestive) heart failure: Code(s): I50.22 - Chronic systolic (congestive) heart failure Status: Acute Assessment and Plan: Euvolemic Monitor for fluid overload Patient on diuretics (4) CAD (coronary artery disease): Qualifiers: Coronary Disease-Associated Artery/Lesion type: [place] artery [place] vs. transplanted heart: [place] heart Associated angina: with stable angina Qualified Code(s): I25.118 - Atherosclerotic heart disease of [place] coronary artery with other forms of angina pectoris Code(s): I25.10 - Atherosclerotic heart disease of [place] coronary artery without angina pectoris Status: Acute Assessment and Plan: Continue Jardiance (5) Type 2 diabetes mellitus with hyperglycemia: Qualifiers: Diabetes mellitus snf insulin use: with snf use Qualified Code(s): E11.65 - Type 2 diabetes mellitus with hyperglycemia; Z79.4 - group home (current) use of insulin Code(s): E11.65 - Type 2 diabetes mellitus with hyperglycemia Status: Acute Assessment and Plan: Uncontrolled hemoglobin A1c 11.3 Hold home metformin SSI and Lantus Subjective Date/time seen: 09/03/24 16:22 Interval history: Holding discharge wound care nurse already left for the day to change the patient to home wound VAC. possible discharge tomorrow Review of Systems Review of Systems: General: well appearing, appears stated age. HEENT: normocephalic, atraumatic. Mucous membranes moist. EOMI, PERRLA, bilateral sclera anicteric, no conjunctival injection. Neck supple without JVD, lymphadenopathy, or bruit. Respiratory: clear to ascultation bilaterally. No rales/rhonic/wheezes. Cardiovascular: Regular rate and rhythm, normal S1-S2 upon ascultation. No murmurs, rubs, or clicks. PMI is nondisplaced, capillary refill less than 3 second. Abdomen: Soft, round, no pulsatile masses, nondistended and nontender. No rebound, no guarding. No CVA tenderness, no hepatosplenomegaly. Bowel sounds present to all four quadrants. No high pitch or tinkling sounds, resonant to percussion. Extremities: No cyanosis, clubbing, or edema present. Pulses are palpable 2/2. Active ROM to all four extremities. Neuro: Alert and orientated x 4. PERRLA. Cranial nerves 2-12 intact without focal deficit. Skin: Warm, dry, and intact, without rash, erythema, or lesion. Psych: pleasant, cooperative, normal speech, normal affect, no hallucinations, no dysarthia Exam Narrative: General: well appearing, appears stated age. HEENT: normocephalic, atraumatic. Mucous membranes moist. EOMI, PERRLA, bilateral sclera anicteric, no conjunctival injection. Neck supple without JVD, lymphadenopathy, or bruit. Respiratory: clear to auscultation bilaterally. No rales/rhonchi/wheezes. Cardiovascular: Regular rate and rhythm, normal S1-S2 upon auscultation. No murmurs, rubs, or clicks. PMI is nondisplaced, capillary refill less than 3 second. Abdomen: Soft, round, no pulsatile masses, nondistended and nontender. No rebound, no guarding. No CVA tenderness, no hepatosplenomegaly. Bowel sounds present to all four quadrants. No high pitch or tinkling sounds, resonant to percussion. Extremities: No cyanosis, clubbing, or edema present. Pulses are palpable 2/2. r foot with dressing clean dry intact no erythema on lower extremity Neuro: Alert and orientated x 4. PERRLA. Cranial nerves 2-12 intact without focal deficit. Skin: left foot wound dressing and wound vac in place Objective Data Vital Signs Vital Signs: Vital Signs - 24 hr 09/02/24 19:33 09/02/24 20:00 09/03/24 04:18 Temperature 96.8 F L 97.1 F L Pulse Rate 95 95 80 Respiratory Rate 16 16 16 Blood Pressure 142/75 H 135/73 Pulse Oximetry 94 94 98 Oxygen Delivery Room Air 09/03/24 08:00 09/03/24 09:03 Temperature 97.1 F L Pulse Rate Respiratory Rate Blood Pressure Pulse Oximetry Oxygen Delivery Room Air Intake/Output Intake/Output: Intake & Output 08/31/24 09/01/24 09/02/24 09/03/24 23:59 23:59 23:59 23:59 Intake Total 1402 2120 2066 880 Output Total 1725 700 350 Balance -323 2120 1366 530 Meds/Results Medications: Active Medications Generic Name Dose Route Start Last Admin Trade Name Freq PRN Reason Stop Dose Admin Acetaminophen 1,000 mg 08/30/24 14:28 09/03/24 09:03 Acetaminophen 500 Mg Tablet PO 1,000 mg Q6H PRN Administration pain 1-3 Hydrocodone Bitart/Acetaminophen 1 tab 08/30/24 14:28 09/02/24 06:19 Hydrocodone/Acetaminophen (*Crx) 5-325 Mg Tablet PO 1 tab Q3H PRN Administration Pain Rated 4-6 Hydrocodone Bitart/Acetaminophen 2 tab 08/30/24 14:28 09/03/24 00:40 Hydrocodone/Acetaminophen (*Crx) 5-325 Mg Tablet PO 2 tab Q6H PRN Administration Pain Rated 7-10 Amoxicillin/Clavulanate Potassium 1 tablet 08/30/24 14:40 09/03/24 08:56 Amoxicillin/Clavulanate K 875-125 Mg Tab PO 09/20/24 23:59 1 tablet Q12HR RANDA Administration Dextrose 12.5 gm 08/27/24 15:34 08/30/24 07:19 Dextrose 50% 25 Gm/50 Ml Syringe IV PUSH 12.5 gm PRN PRN Administration Hypoglycemia Protocol Diazepam 5 mg 08/30/24 14:28 Diazepam (*Crx) 5 Mg Tablet PO Q8H PRN Muscle Spasm Empagliflozin 10 mg 08/28/24 09:00 09/03/24 08:56 Empagliflozin 10 Mg Tablet PO 10 mg DAILY RANDA Administration Enoxaparin Sodium 40 mg 08/29/24 09:00 09/03/24 08:57 Enoxaparin 40 Mg/0.4 Ml Syringe SUB-Q 40 mg DAILY RANDA Administration Famotidine 20 mg 08/30/24 21:00 09/03/24 08:56 Famotidine 20 Mg Tablet PO 20 mg Q12HR RANDA Administration Glucagon 1 mg 08/27/24 15:34 Glucagon For Inj 1 Mg Vial IM PRN PRN Hypoglycemia Protocol Glucose 15 gm 08/27/24 15:34 08/30/24 07:33 Glucose Oral Gel 15 Gm Of Glucse In 37.5 Gm Tube PO 15 gm PRN PRN Administration Hypoglycemia Protocol Dextrose 1,000 mls @ 100 mls/hr 08/27/24 15:34 Dextrose 5% 1,000 Ml IVPB PRN PRN Hypoglycemia Protocol Insulin Aspart 1 - 2 units 08/27/24 21:00 09/02/24 20:53 Insulin Aspart (*Bkc) 100 Units/Ml SUB-Q 1 units HS RANDA Administration Protocol Insulin Aspart 3 - 6 units 08/28/24 08:00 09/03/24 12:54 Insulin Aspart (*Bkc) 100 Units/Ml SUB-Q Not Given TIDWM [facility] Protocol Insulin Glargine 10 units 08/30/24 18:00 Insulin Glargine (*Bkc) 100 Units/Ml SUB-Q QPM [facility] Lisinopril 5 mg 08/29/24 11:05 09/03/24 08:56 Lisinopril 5 Mg Tablet PO 5 mg QAM RANDA Administration Meclizine HCl 50 mg 08/27/24 18:30 09/03/24 08:57 Meclizine Hcl 25 Mg Tablet PO 50 mg BID RANDA Administration Metformin HCl 500 mg 08/30/24 17:00 09/03/24 08:56 Metformin Hcl 500 Mg Tablet PO 500 mg BID RANDA Administration Naloxone HCl 0.1 mg 08/30/24 14:28 Naloxone Hcl 0.4 Mg/Ml Vial IV PUSH Q2M PRN Opiate Reversal Ondansetron HCl 4 mg 08/30/24 14:28 Ondansetron Inj 4 Mg/2 Ml Vial IV PUSH Q4H PRN Nausea And Vomiting Polyethylene Glycol 17 gm 08/31/24 09:00 09/03/24 08:57 Polyethylene Glycol 3350 17 Gm Powd.Pack PO Not Given QAM RANDA Senna/Docusate Sodium 2 tab 08/30/24 17:00 09/03/24 08:56 Senna/Docusate Sodium Tablet PO Not Given BID RANDA Trimethoprim/Sulfamethoxazole 1 tab 09/02/24 09:45 09/03/24 08:56 Sulfamethoxazole/Trimethoprim 800/160 Mg Ds Tablet PO 09/20/24 23:59 1 tab Q12HR RANDA Administration Radiology Results: ITS Impressions Ankle Brachial Index 08/27/24 11:25 IMPRESSION: Normal RANDAL. Foot X-Ray 08/27/24 11:31 IMPRESSION: 1. Soft tissue gas at the heel fat pad with likely related to an overlying skin ulceration. Differential for soft tissue gas includes necrotizing fasciitis which is ultimately a clinical diagnosis. No associated osteomyelitis. Findings were discussed with Keily Centeno, the nurse caring for the patient, at 11:37 AM. 2. Mild polyarticular osteoarthritis in the mid and forefoot with erosions at the heads of multiple proximal phalanges with displacement appearance most suggestive of gout. Foot MRI 08/28/24 11:37 IMPRESSION 1. Numerous foci of soft tissue gas localized to the heel fat pad surrounding a skin ulceration without abscess. 2. Marrow edema and enhancement along the underlying plantar/lateral margin of the posterior tuberosity of the calcaneus which could be reactive or due to early osteomyelitis although there is no definitive cortical erosion or geographic loss of T1 fat signal to more specifically suggest osteomyelitis. 3. Mild to moderate polyarticular osteoarthritis in the midfoot. 4. Chronic sprains of the deep deltoid ligament and anterior inferior tibiofibular ligament. Labs Labs: Laboratory Results - last 24 hr 09/02/24 09/02/24 09/03/24 16:06 19:32 06:17 WBC 5.9 RBC 4.15 L Hgb 12.1 L Hct 37.9 L MCV 91.3 MCH 29.2 MCHC 31.9 L RDW 11.7 Plt Count 380 H MPV 9.2 Immature Gran % (Auto) 0.3 Neut % (Auto) 64.6 Lymph % (Auto) 23.1 [place] % (Auto) 9.8 H Eos % (Auto) 1.5 Baso % (Auto) 0.7 Lymph # (Auto) 1.36 [place] # (Auto) 0.6 Eos # (Auto) 0.1 Baso # (Auto) 0.0 Abs Immat Gran (auto) 0.02 Absolute Neuts (auto) 3.8 Absolute Nucleated RBC 0.000 Nucleated RBC % 0.0 Sodium 132 L Potassium 4.2 Chloride 95 L Carbon Dioxide 29 Anion Gap 8 BUN 13 Creatinine 0.50 L Estim Creat Clear Calc 126 Estimated GFR > 60 Glucose 87 POC Capillary Glucose 135 H 201 H Calcium 8.6 Magnesium 1.9 Total Bilirubin 0.6 AST 25 ALT 13 Alkaline Phosphatase 67 Total Protein 6.0 L Albumin 3.1 L 09/03/24 09/03/24 07:33 11:29 WBC RBC Hgb Hct MCV MCH MCHC RDW Plt Count MPV Immature Gran % (Auto) Neut % (Auto) Lymph % (Auto) [place] % (Auto) Eos % (Auto) Baso % (Auto) Lymph # (Auto) [place] # (Auto) Eos # (Auto) Baso # (Auto) Abs Immat Gran (auto) Absolute Neuts (auto) Absolute Nucleated RBC Nucleated RBC % Sodium Potassium Chloride Carbon Dioxide Anion Gap BUN Creatinine Estim Creat Clear Calc Estimated GFR Glucose POC Capillary Glucose 83 148 H Calcium Magnesium Total Bilirubin AST ALT Alkaline Phosphatase Total Protein Albumin Quality VTE Prophylaxis VTE prophylaxis: mechanical ordered and pharmacologic ordered Hospitalist MIPS Advance Care Plan I have confirmed that the patient's Advanced Care Plan is present, code status is documented, or surrogate decision maker is listed in patient medical record.: Yes Medication Reconciliation I have utilized all available resources to obtain, update and review the patients current medications (includes all prescriptions, OTC, herbals, cannabis, and nutritional supplements).: Yes
[2024-09-03 17:02] LABS: Glucose Point of Care 121 mg/dl (65-105)
[2024-09-03] MEDS: HYDROcodone/acetaminophen (*CRX) 5-325 MG TABLET 1 TAB PO (17:05)
[2024-09-03 20:29] LABS: Glucose Point of Care 215 mg/dl (65-105)
[2024-09-03] MEDS: INSULIN ASPART (*BKC) 100 UNITS/ML SUB-Q (21:02)
[2024-09-03 22:00] VITALS: BP 132/81; PULSE 82; RESP 16; TEMP 37; O2SAT 98
[2024-09-04] MEDS: HYDROcodone/acetaminophen (*CRX) 5-325 MG TABLET 1 TAB PO ×2 (04:09→09:57)
[2024-09-04 05:43] VITALS: BP 151/94; PULSE 86; RESP 17; TEMP 36.2; O2SAT 98
[2024-09-04 06:22] LABS: Hematocrit 38.4 % (42.0-52.0); Hemoglobin 12.6 g/dL (14.0-18.0); Mean Corpuscular HGB Conc 32.8 g/dl (32-36); Mean Corpuscular Hemoglobin 29.3 pg (26-34); Mean Corpuscular Volume 89.3 fl (80-100); Mean Platelet Volume 8.9 fl (7.4-10.4); Platelet Count Result 419 k/mm3 (150-375); Red Cell Distribution Width 11.7 % (11.5-14.5); White Blood Count 6.8 K/mm3 (4.5-10.0)
[2024-09-04 06:50] LABS: Alanine Aminotransferase 15 U/L (6-50); Albumin Level 3.4 g/dL (3.5-5.1); Alkaline Phosphatase 69 U/L (38-126); Anion Gap 8 mmol/L (4-12); Aspartate Amino Transferase 28 U/L (17-59); Bilirubin,Total 0.5 mg/dL (0.2-1.3); Blood Urea Nitrogen 14 mg/dL (9-20); Calcium 8.8 mg/dL (8.4-10.2); Carbon Dioxide 29 mmol/L (22-30); Chloride 95 mmol/L (98-107); Estimated CRCL calculation 112 ml/min; Estimated Glomerular Filt Rate > 60; Glucose 126 mg/dL (65-110); Potassium 4.4 mmol/L (3.4-5.0); Sodium 132 mmol/L (137-145)
[2024-09-04 07:52] LABS: Glucose Point of Care 119 mg/dl (65-105)
[2024-09-04] MEDS: AMOXICILLIN/CLAVULANATE K 875-125 MG TAB 1 TABLET PO (09:48)
[2024-09-04] MEDS: lisinopriL 5 MG TABLET PO (09:48)
[2024-09-04] MEDS: metFORMIN HCL 500 MG TABLET PO (09:48)
[2024-09-04] MEDS: MECLIZINE HCL 25 MG TABLET 50 MG PO (09:48)
[2024-09-04] MEDS: FAMOTIDINE 20 MG TABLET PO (09:48)
[2024-09-04] MEDS: SULFAMETHOXAZOLE/TRIMETHOPRIM 800/160 MG DS TABLET 1 TAB PO (09:48)
[2024-09-04] MEDS: ENOXAPARIN 40 MG/0.4 ML SYRINGE SUB-Q (09:48)
[2024-09-04] MEDS: EMPAGLIFLOZIN 10 MG TABLET PO (09:48)
[2024-09-04 11:34] LABS: Glucose Point of Care 129 mg/dl (65-105)
== END 2024-09-04 16:43 | disposition home health service (06) | DRG 623 ==
PROVIDERS: Internal Medicine; Nurse Practitioner Family; Nurse Practitioner Gerontology; Orthopaedic Surgery; Admitting Provider Family Medicine; PCP Family Medicine; Visit Provider General Practice
PROC: 0KBW0ZZ Excision of Left Foot Muscle, Open Approach (ICD-10-PCS; principal; 2024-08-30 12:00)
DX: E11.621 Type 2 diabetes mellitus with foot ulcer (principal); I50.22 Chronic systolic (congestive) heart failure; M86.172 Other acute osteomyelitis, left ankle and foot; L97.423 Non-pressure chronic ulcer of left heel and midfoot with necrosis of muscle; E11.69 Type 2 diabetes mellitus with other specified complication; L97.513 Non-pressure chronic ulcer of other part of right foot with necrosis of muscle; E11.65 Type 2 diabetes mellitus with hyperglycemia; I11.0 Hypertensive heart disease with heart failure; I25.10 Atherosclerotic heart disease of native coronary artery without angina pectoris; E11.319 Type 2 diabetes mellitus with unspecified diabetic retinopathy without macular edema; E11.42 Type 2 diabetes mellitus with diabetic polyneuropathy; K21.9 Gastro-esophageal reflux disease without esophagitis; F33.41 Major depressive disorder, recurrent, in partial remission; K44.9 Diaphragmatic hernia without obstruction or gangrene; M15.9 Polyosteoarthritis, unspecified; Z85.038 Personal history of other malignant neoplasm of large intestine; Z95.1 Presence of aortocoronary bypass graft; Z79.4 Long term (current) use of insulin; Z95.5 Presence of coronary angioplasty implant and graft; Z87.891 Personal history of nicotine dependence
CPT/HCPCS: 36415; 73630; 73720; 80048; 80053; 80202; 81001; 82948; 83036; 83605; 83735; 85025; 85027; 85652; 86140; 87040; 87070; 87075; 87205; 93922; 96365; 96367; 97116; 97161; 97530; A9270; A9579; G0378; G0379; J1650; J1815; J2185; J2704; J3010; J3370; J7030; J7042; J7120

== ENCOUNTER 2024-09-13 10:09 | Outpatient (RCR) | payer MEDICARE, SELFPAY | END 2024-12-02 10:37 | disposition home or self-care (01) | LOC: ANHDMC 10:09 | PROVIDERS: PCP Family Medicine; Visit Provider Family Medicine | DX: E11.65 Type 2 diabetes mellitus with hyperglycemia (principal); Z71.3 Dietary counseling and surveillance | CPT/HCPCS: G0108 ==

== ENCOUNTER 2024-10-04 09:51 | Inpatient (IN) | payer MEDICARE, SELFPAY ==
--- NOTE | ~2024-10-04 | XR_ITS ---
EXAMINATION: XR chest 1V portable DATE: 10/04/2024 10:19 INDICATION: Shortness of breath TECHNIQUE: frontal view of the chest was obtained. COMPARISON: Chest radiograph dated 01/22/2023 FINDINGS: Interstitial and airspace opacities in the bilateral lower lung zones which could represent pulmonary edema or pneumonia. No pleural effusion or pneumothorax. Cardiomegaly. Median sternotomy wires and m ediastinal surgical clips are seen, likely from prior coronary artery bypass grafting. IMPRESSION: 1. Opacities in bilateral lower lung zones most likely congestive heart failure related mild pulmonar y edema although differential includes pneumonia. 2. Cardiomegaly. Reviewed, dictated and finalized at location A. IMPRESSION: 1. Opacities in bilateral lower lung zones most likely congestive heart failure related mild pulmonary edema although differential includes pneumonia. 2. Cardiomegaly.
--- NOTE | ~2024-10-04 | US_ITS ---
EXAMINATION: US venous doppler [facility] DATE: 10/04/2024 11:52 INDICATION: Lower limb pain and swelling TECHNIQUE: Grayscale ultrasound images without and with compression and Doppler ultrasound images of the bilateral lower extremity veins were obtained. COMPARISON: None. FINDINGS: The visualized portions of right common femoral vein, profunda (deep) femoral vein, femoral vein, pop liteal vein, posterior tibial veins, peroneal veins, gastrocnemius vein and greater saphenous vein ou tflow are patent. The visualized portions of left common femoral vein, profunda femoral vein, femoral vein, popliteal v ein, posterior tibial veins, peroneal veins, gastrocnemius vein and greater saphenous vein outflow ar e patent. IMPRESSION: 1. No deep venous thrombosis in either lower limb. Reviewed, dictated and finalized at location A.
--- NOTE | ~2024-10-04 | US_ITS ---
Limited ABDOMINAL ULTRASOUND (Doppler ultrasound interrogation techniques used as needed for this exa m.) Ordering provider: Sandee Weiss MD History: . liver enzymes . Comparison: None. FINDINGS: PANCREAS: Not well visualized. PORTAL VEIN: Hepatopedal flow demonstrated. Measures 1.7 cm. LIVER: Normal size and echotexture. No focal hepatic lesions or perihepatic fluid collections are michelle ntified. BILIARY DUCTS: No intra or extrahepatic biliary dilation. Common bile duct measures 6.2 mm in diamete r which is normal for patient's age. GALLBLADDER: Surgically absent. RIGHT KIDNEY: Normal size which measures 12 x 5 x 7.2 cm. No hydronephrosis, solid renal mass, renal calculi or perinephric fluid collections. No renal cysts. Renal cortex measures 1.5 cm. FREE FLUID: None visualized within the upper abdomen. IMPRESSION: Slightly dilated portal vein. Otherwise, normal limited abdominal ultrasound. Reviewed, dictated and finalized at location A.
--- NOTE | ~2024-10-04 | CT_ITS ---
CT Scan of the Chest without Contrast: Clinical Indication: Pneumonia versus pulmonary edema Technique: Contiguous sections were acquired throughout the chest without intravenous contrast. Dose reduction technique was used on this scan by utilizing automated exposure control and iterative recon struction technique. The dose-length product (DLP) was 301.92 mGy-cm. Findings: There is significant enlargement of the right thyroid lobe with a 4.6 cm probable cystic no dule. There is no evidence of any significant mediastinal, hilar or axillary lymphadenopathy. Coronary [place] calcifications are present. There is mild cardiomegaly. No pericardial effusion. Moderate bilateral pleural effusions are present. Probable minimal interstitial and bibasilar pulmona ry edema with minimal atelectatic changes. Images through the upper abdomen reveal no abnormalities. Impression: Moderate bilateral pleural effusions with probable minimal pulmonary edema and atelectatic changes. Significant enlargement of right thyroid lobe with 4.6 cm probable cystic nodule, which is essentiall y unchanged since 2019. Reviewed, dictated and finalized at [facility]. Impression: Moderate bilateral pleural effusions with probable minimal pulmonary edema and atelectatic changes. Significant enlargement of right thyroid lobe with 4.6 cm probable cystic nodul e, which is essentially unchanged since 2019.
--- NOTE | 2024-10-04 10:05 | ECG_ITS ---
Test Date: 2024-10-04 10:33:13 Measurements Intervals [place] Rate: 65 P: 66 OR: 186 QRS: -24 QRSD: 104 T: 0 QT: 415 QTc: 435 Interpretive Statements SINUS RHYTHM DELAYED PRECORDIAL R/S TRANSITION BORDERLINE ST-T WAVE ABNORMALITY- ANTEROLAT/HIGH LAT LEADS BASELINE ARTIFACT- I, III, AVR, AVL BORDERLINE ECG Compared to ECG 03/28/2024 11:40:34 NO SIGNIFICANT CHANGE Electronically Signed On 10-04-2024 10:48:33 CDT by Leon Roldan D.O.
--- NOTE | 2024-10-04 10:30 | ED.LOWEXIN ---
HPI - Extremity Injury (Lower) General Chief Complaint: Extremity Injury, Lower Stated Complaint: A LITTLE BIT OF EVERYTHING FOOT LEG SWELLING Time Seen by Provider: 10/04/24 09:57 History of Present Illness HPI Narrative: Patient with history of diabetic foot ulcers, who had extensive debridement to the left heel recently, seen by Orthopedics in the wound center this morning and sent to the emergency room due to concern for swelling in the leg, reportedly wound is healing well however the concern is for possible cardiac cause or DVT. Patient did state that when he woke up this morning he felt diaphoretic with some chest pain and shortness of breath, found his sugar was low so has some orange juice and symptoms largely resolved. Related Data Home Medications ?Medication ?Instructions ?Recorded ?Confirmed ?Last Taken ?Type acetaminophen 500 mg tablet 1,000 mg PO Q6H PRN pain 08/27/24 09/27/24 08/27/24 History (Acetaminophen Extra Strength) meclizine 50 mg tablet (Antivert) 50 mg PO BID 08/27/24 09/27/24 08/27/24 History metformin 500 mg tablet 500 mg PO BID 08/27/24 09/27/24 08/27/24 History Allergies Allergy/AdvReac Type Severity Reaction Status Date / Time No Known Allergies Allergy Verified 09/27/24 09:35 [facility] Past Medical History Medical History (Updated 10/04/24 @ 12:41 by Nat Zapata MD) Non-pressure chronic ulcer of other part of right foot with necrosis of muscle Heel ulcer due to DM History of colon cancer 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 GERD (gastroesophageal reflux disease) Carpal tunnel syndrome Surgical History Surgical History History of incision and drainage Complex I&D Right foot infected diabetic foot ulcer measuring approximately 5x4cm. on 12/19/21 Status post debridement (12/2020) Right foot abscess, osteomyelitis. History of coronary artery stent placement History of cardiac catheterization History of colonoscopy with polypectomy History of repair of hiatal hernia (2002) History of coronary artery bypass graft History of carpal tunnel release History of arthroscopy of right knee History of hernia repair (2019) Finger amputee Right 2nd finger secondary to crush injury. History of right hemicolectomy with ileocolic anastomsis in 2019 Family History Family History Sibling Family history of malignant neoplasm Father Family history of chronic obstructive pulmonary disease Hypertension Heart disease Mother Hypertension Cancer Sibling Cancer Sibling Cancer Sibling Cancer Social History Social History Social History: The patient is and lives with his and 1 son in [place]. They have 4 children. 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 No alcohol or illicit substance abuse. Surrogate medical decision maker: Tash Orantes, spouse. Code status: Full code. Years smoked: 10 Smoking status: Former smoker Alcohol intake: never Substance use: never Substance use type: does not use Do You Feel Safe in your Home?: Yes Lack of Transportation: No Lack of Food: Never True Current Housing: I Have Housing Concerned About Future Housing: No Difficulty Paying Gas/Electric Bills: No Difficulty Paying for Meds: No Currently Unemployed: No Education: High School Diploma/GED Difficulty w/ Childcare or Family Care: No Living arrangements: with family Occupation/Education: retired Gender identity (if verbalized by the patient): Male Sexual Orientation (if Verbalized by the Patient): Straight or Heterosexual Spiritual care concerns: No Exam Narrative: EXAMINATION OF ORGAN SYSTEMS/BODY AREAS: Constitutional: Vital signs per nursing GENERAL:[No acute distress, non-toxic appearing.] HEAD: Normal with no signs of head trauma. EYES: EOMI, conjunctiva normal ENT: Hearing grossly intact LUNGS: Nonlabored breathing. HEART: [Regular rate and rhythm] ABD: [Soft], [nontender to palpation] EXT: Large heel ulcer left heel without any obvious purulence or surrounding redness; right foot ulcer, normal palpable DP pulses bilaterally, swelling bilateral lower extremities with some pitting left leg more than right SKIN: Diabetic foot ulcers as above NEURO: [Alert and oriented x 3. No gross focal sensory or strength deficits.] PSYCH: Normal affect Course Vital Signs Vital signs: Vital Signs Temperature 98.1 F 10/04/24 10:33 Pulse Rate 64 10/04/24 10:33 Respiratory Rate 16 10/04/24 10:33 Blood Pressure 129/81 10/04/24 10:33 Pulse Oximetry 96 10/04/24 10:33 Oxygen Delivery Room Air 10/04/24 10:33 Temperature 98.1 F 10/04/24 10:33 Pulse Rate 64 10/04/24 10:33 Respiratory Rate 16 10/04/24 10:33 Blood Pressure 129/81 10/04/24 10:33 Pulse Oximetry 96 10/04/24 10:33 Oxygen Delivery Room Air 10/04/24 10:33 MDM - Extremity Injury (Lower) MDM Narrative Medical decision making narrative: Patient sent here by orthopedist due to concern for potential vascular cardiac cause of lower extremity swelling, he did have some slight chest pain and diaphoresis and shortness of breath earlier this morning that has now resolved, which he attributed to hypoglycemia episode, no current chest pain. EKG - 12-Lead: Performed at 1033. Interpreted by me. [Sinus rhythm]. Rate 65. [Normal] axis. PA-interval 186. QRS duration 104. QTc 435. [No ST segment elevation or depression]. Some T-wave inversions anterolateral. No obvious acute ischemia or arrhythmia DVT ultrasound obtained per orthopedics request negative for acute DVT. BNP is elevated at 4300, chest x-ray on my independent interpretation showing cardiomegaly with pulmonary venous congestion with some blunting costophrenic angles so I did start Lasix. Discussed with patient family for admission, they are agreeable to plan. Discussed with hospitalist for admission. Lab Data 10/04/24 10:51 10/04/24 10:51 Labs: Lab Results 10/04/24 Range/Units 10:51 WBC 4.2 L (4.5-10.0) K/mm3 RBC 3.55 L (4.6-6.20) M/mm3 Hgb 10.6 L (14.0-18.0) g/dL Hct 33.1 L (42.0-52.0) % MCV 93.2 (80-100) fl MCH 29.9 (26-34) pg MCHC 32.0 (32-36) g/dl RDW 13.3 (11.5-14.5) % Plt Count 260 (150-375) k/mm3 MPV 9.2 (7.4-10.4) fl Immature Gran % (Auto) 0.2 (0-0.5) % Neut % (Auto) 72.8 (45.5-73.1) % Lymph % (Auto) 19.0 (18.3-44.2) % [place] % (Auto) 7.1 (2.6-8.5) % Eos % (Auto) 0.7 (0-4.4) % Baso % (Auto) 0.2 (0.2-1.2) % Lymph # (Auto) 0.80 L (0.9-3.2) K/mm3 [place] # (Auto) 0.3 (0.1-0.6) K/mm3 Eos # (Auto) 0.0 (0-0.3) K/mm3 Baso # (Auto) 0.0 (0.0-0.1) K/mm3 Abs Immat Gran (auto) 0.01 (0.00-0.031) K/mm3 Absolute Neuts (auto) 3.1 (1.3-6.7) K/mm3 Absolute Nucleated RBC 0.000 (0.0-0.012) K/mm3 Nucleated RBC % 0.0 (0.0-0.2) % Sodium 135 L (137-145) mmol/L Potassium 4.3 (3.4-5.0) mmol/L Chloride 101 (98-107) mmol/L Carbon Dioxide 25 (22-30) mmol/L Anion Gap 9 (4-12) mmol/L BUN 24 H D (9-20) mg/dL Creatinine 0.66 L (0.7-1.3) mg/dL Estim Creat Clear Calc Not Reportable Estimated GFR > 60 (59 - ) Glucose 133 H (65-110) mg/dL Calcium 8.7 (8.4-10.2) mg/dL Magnesium 1.9 (1.6-2.3) mg/dL Total Bilirubin 0.6 (0.2-1.3) mg/dL AST 91 H (17-59) U/L ALT 72 H (6-50) U/L Alkaline Phosphatase 161 H (38-126) U/L Troponin I < 0.012 (0.000-0.034) ng/mL NT-Pro-B Natriuret Pep 4350 H (19.9-100) pg/mL Total Protein 6.9 (6.3-8.2) g/dL Albumin 3.7 (3.5-5.1) g/dL Critical Care Time Critical Care Time Critical Care Time: Yes Total Critical Care Time: 31 Discharge Plan Discharge Clinical Impression: Acute exacerbation of CHF (congestive heart failure) Patient Disposition: Still a Patient Condition: Serious
[2024-10-04 10:33] VITALS: BP 129/81; PULSE 64; RESP 16; TEMP 36.7; O2SAT 96
[2024-10-04] MEDS: FUROSEMIDE INJ 40 MG/4 ML VIAL IV PUSH (10:50)
[2024-10-04 11:09] LABS: Basophils Percent Auto 0.2 % (0.2-1.2); Eosinophils Percent Auto 0.7 % (0-4.4); Hematocrit 33.1 % (42.0-52.0); Hemoglobin 10.6 g/dL (14.0-18.0); Immature Granulocyte Absolute 0.01 K/mm3 (0.00-0.031); Immature Granulocyte Percent A 0.2 % (0-0.5); Mean Corpuscular Hemoglobin 29.9 pg (26-34); Mean Corpuscular Volume 93.2 fl (80-100); Mean Platelet Volume 9.2 fl (7.4-10.4); Monocytes Absolute Auto 0.3 K/mm3 (0.1-0.6); Monocytes Percent Auto 7.1 % (2.6-8.5); Neutrophils Absolute Auto 3.1 K/mm3 (1.3-6.7); Neutrophils Percent Auto 72.8 % (45.5-73.1); Platelet Count Result 260 k/mm3 (150-375); Red Blood Count 3.55 M/mm3 (4.6-6.20); Red Cell Distribution Width 13.3 % (11.5-14.5); White Blood Count 4.2 K/mm3 (4.5-10.0)
[2024-10-04 11:12] LABS: Alanine Aminotransferase 72 U/L (6-50); Albumin Level 3.7 g/dL (3.5-5.1); Alkaline Phosphatase 161 U/L (38-126); Anion Gap 9 mmol/L (4-12); Aspartate Amino Transferase 91 U/L (17-59); Bilirubin,Total 0.6 mg/dL (0.2-1.3); Blood Urea Nitrogen 24 mg/dL (9-20); Calcium 8.7 mg/dL (8.4-10.2); Carbon Dioxide 25 mmol/L (22-30); Chloride 101 mmol/L (98-107); Estimated Glomerular Filt Rate > 60; Glucose 133 mg/dL (65-110); Magnesium 1.9 mg/dL (1.6-2.3); Potassium 4.3 mmol/L (3.4-5.0); Sodium 135 mmol/L (137-145); Total Protein 6.9 g/dL (6.3-8.2)
[2024-10-04 11:21] LABS: NT Pro B Type Natriuretic Pept 4350 pg/mL (19.9-100)
[2024-10-04 11:23] LABS: Troponin I < 0.012 ng/mL (0.000-0.034)
--- NOTE | 2024-10-04 12:03 | PC.NURSE ---
Spoke with MARCIAL Thompson in [facility] wound [facility]. Donna states put dry gauze dressing on patient wound and have take wound vac home. MARCIAL Thompson will discuss with Dr. Coreas regarding dressing needed on the floor.
[2024-10-04 12:46] VITALS: PULSE 68; RESP 18; O2SAT 99
[2024-10-04 13:00] VITALS: BP 130/72; PULSE 64; RESP 17; TEMP 36; O2SAT 100; BMI 24.4
--- NOTE | 2024-10-04 13:00 | ADMGEN ---
This patient, Ramirez Orantes Jr., was admitted to [facility] Surg Room 320-01. Patient/family oriented to hospital policies and general routines including ID bracelet, bed and alarms, visiting hours, pain management, procedures, bathroom and other care routines, personal items, smoking policy, room service/diet, and visiting hours. Information on how to activate the Rapid Response Team has been discussed. Patient/Family are encouraged to report perceived risks to care and to ask questions if they do not understand what they are told or what they should do.
[2024-10-04 14:00] LABS: Troponin I 0.016 ng/mL (0.000-0.034)
--- NOTE | 2024-10-04 14:45 | PM.IMHP ---
H&P: HPI History of Present Illness Date/Time: 10/04/24 14:45 Chief Complaint: sent from wound care for leg swelling Narrative: 69 yo male with PMH of DM2, CAD s/p stents adn CABG, ischemic cardiomyopathy, left foot wound who was sent to the ER from wound care for leg swelling. Patient noted that he woke up this mornng with SOB and orthopnea, noted he was in usual state of health before today. Denies any chest pain, vomiting, abd pain or diarrhea. Patient noted he already has I and D about a month ago and has been has been on wound vac. consistent with wound care follow up. Er eval vital signs BP 147/87, labs notable hb 10.6, AST 91, ALT 72, NTproBNP 4350. Troponin negative Venous doppler negative, CT chest shwoed moderate pleural effusions with pulm edema and uchanged enlarged right thyroid nodule with 4.6cm cystic nodule, unchanged from 2019. Patient was admitted for proper eval and care. Review of Systems Review of Systems: All other systems were reviewed and negative except as noted in the HPI above. 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 GERD (gastroesophageal reflux disease) Carpal tunnel syndrome Surgical History Surgical History History of incision and drainage Complex I&D Right foot infected diabetic foot ulcer measuring approximately 5x4cm. on 12/19/21 Status post debridement (12/2020) Right foot abscess, osteomyelitis. History of coronary artery stent placement History of cardiac catheterization History of colonoscopy with polypectomy History of repair of hiatal hernia (2001) History of coronary artery bypass graft History of carpal tunnel release History of arthroscopy of right knee History of hernia repair (2019) Finger amputee Right 2nd finger secondary to crush injury. History of right hemicolectomy with ileocolic anastomsis in 2019 Family History Family History Sibling Family history of malignant neoplasm Father Family history of chronic obstructive pulmonary disease Hypertension Heart disease Mother Hypertension Cancer Sibling Cancer Sibling Cancer Sibling Cancer Social History Social History Social History: The patient is and lives with his and 1 son in [place]. They have 4 children. 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 No alcohol or illicit substance abuse. Surrogate medical decision maker: Tash Orantes, spouse. Code status: Full code. Years smoked: 10 Smoking status: Former smoker Alcohol intake: never Substance use: never Substance use type: does not use Do You Feel Safe in your Home?: Yes Lack of Transportation: No Lack of Food: Never True Current Housing: I Have Housing Concerned About Future Housing: No Difficulty Paying Gas/Electric Bills: No Difficulty Paying for Meds: No Currently Unemployed: No Education: High School Diploma/GED Difficulty w/ Childcare or Family Care: No Living arrangements: with family Occupation/Education: retired Gender identity (if verbalized by the patient): Male Sexual Orientation (if Verbalized by the Patient): Straight or Heterosexual Spiritual care concerns: No Meds Home Medications and Allergies Home Medications ?Medication ?Instructions ?Recorded ?Confirmed ?Type Jardiance 10 mg tablet 10 mg PO DAILY 30 days #30 tabs 06/18/24 10/04/24 Rx (empagliflozin) acetaminophen 500 mg tablet 1,000 mg PO Q6H PRN pain 08/27/24 10/04/24 History (Acetaminophen Extra Strength) meclizine 50 mg tablet (Antivert) 50 mg PO BID 08/27/24 10/04/24 History metformin 500 mg tablet 500 mg PO BID 08/27/24 10/04/24 History lisinopril 5 mg tablet 5 mg PO QAM #30 tabs 09/03/24 10/04/24 Rx 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 sensor (Dexcom G7 #3 ea 09/13/24 10/04/24 Rx Sensor device) 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,photo editor,cont #1 ea 09/13/24 10/04/24 Rx (Dexcom G7 Bone Char Kiln Operator) insulin glargine 100 unit/mL (3 18 unit (0.18 mL) subcut QPM #15 mL 09/27/24 10/04/24 Rx mL) subcutaneous pen (Lantus Solostar U-100 Insulin) rosuvastatin 5 mg tablet 5 mg PO DAILY #90 tabs 10/03/24 10/04/24 Rx Allergies Allergy/AdvReac Type Severity Reaction Status Date / Time No Known Allergies Allergy Verified 09/27/24 09:35 Vital Signs Vital Signs - 24 hr 10/04/24 10:33 10/04/24 12:46 10/04/24 13:00 Temperature 98.1 F Pulse Rate 64 68 Respiratory Rate 16 18 Blood Pressure 129/81 Pulse Oximetry 96 99 Oxygen Delivery Room Air Room Air 10/04/24 13:00 Temperature 96.8 F L Pulse Rate 64 Respiratory Rate 17 Blood Pressure 130/72 Pulse Oximetry 100 Oxygen Delivery Exam Narrative: General: alert and comfortable Eyes: EOMI, PERRLA ENNT External ears normal, Neck is supple, no masses, Respiratory systems: Clear to auscultation Cardiovascular S1, S2, normal rhythm, no murmur, rub, or gallop; no thrill or palpable murmurs on palpation. Gastrointestinal: soft, non-tender, and non-distended abdomen with no masses; BS present Skin: no rash, lesions, ulcerations, subcutaneous nodules or induration Musculoskeletal: left foot wound dressing clean and dry, bilateral leg edema Neurologic: Alert and oriented x3, non focal Mental Status Exam: normal affect H&P: Results Labs Labs: Short CBC 10/04/24 Range/Units 10:51 WBC 4.2 L (4.5-10.0) K/mm3 Hgb 10.6 L (14.0-18.0) g/dL Hct 33.1 L (42.0-52.0) % Plt Count 260 (150-375) k/mm3 BMP 10/04/24 10:51 Sodium 135 L Potassium 4.3 Chloride 101 Carbon Dioxide 25 BUN 24 H D Creatinine 0.66 L Glucose 133 H Calcium 8.7 Cardiac Enzymes 10/04/24 10/04/24 Range/Units 10:51 13:26 Troponin I < 0.012 0.016 D (0.000-0.034) ng/mL Liver Function 10/04/24 Range/Units 10:51 Total Bilirubin 0.6 (0.2-1.3) mg/dL AST 91 H (17-59) U/L ALT 72 H (6-50) U/L Alkaline Phosphatase 161 H (38-126) U/L Albumin 3.7 (3.5-5.1) g/dL Assessment and Plan Assessment and plan (1) Acute exacerbation of CHF (congestive heart failure): Code(s): I50.9 - Heart failure, unspecified Status: Acute (2) CAD (coronary artery disease): Qualifiers: Coronary Disease-Associated Artery/Lesion type: [place] artery [place] vs. transplanted heart: [place] heart Associated angina: with stable angina Qualified Code(s): I25.118 - Atherosclerotic heart disease of [place] coronary artery with other forms of angina pectoris Code(s): I25.10 - Atherosclerotic heart disease of [place] coronary artery without angina pectoris Status: Acute (3) Non-pressure chronic ulcer of other part of right foot with necrosis of muscle: Code(s): L97.513 - Non-pressure chronic ulcer of other part of right foot with necrosis of muscle Status: Acute Plan CHF exacerbation presented with SOB CT showed bilateral effusion and leg edema Troponin negative and denies any chest pain ECHO ordered Started on Lasix 20mg bid, continue Jardiance Patient is not on oxygen, thus may discharge tomorrow contingent on ECHO findings Patient noted he has cardiology monitor Left foot ulcer already follows with wound care and they will be back to insert wound vac monitor CAD s/p stents and CABG restart home meds once reconciled Elevated liver enzymes ALT 91, ALT 72 Hepatitis viral panel, US liver Hold statin monitor Anemia Hb 10.1 iron panel pending DM2 SSI with accucheks diabetic and healthy diets continue home lantus DVT prophylaxis on Sq lovenox Full code SDM: Elva Orantes Hospitalist [facility] Advance Care Plan I have confirmed that the patient's Advanced Care Plan is present, code status is documented, or surrogate decision maker is listed in patient medical record.: Yes Medication Reconciliation I have utilized all available resources to obtain, update and review the patients current medications (includes all prescriptions, OTC, herbals, cannabis, and nutritional supplements).: Yes
[2024-10-04 16:32] LABS: Hepatitis B Surface Antigen Negative (Negative)
[2024-10-04 16:38] LABS: HAV RESULT Negative (Negative); Hepatitis B Core IgM Result Negative (Negative)
[2024-10-04] MEDS: FUROSEMIDE INJ 40 MG/4 ML VIAL 20 MG IV PUSH (16:41)
[2024-10-04 17:04] LABS: Glucose Point of Care 136 mg/dl (65-105)
[2024-10-04] MEDS: INSULIN GLARGINE (*BKC) 100 UNITS/ML 18 UNITS SUB-Q (17:29)
[2024-10-04 18:52] LABS: Hepatitis C Virus Antibody Negative (Negative)
[2024-10-04 21:51] LABS: Glucose Point of Care 198 mg/dl (65-105)
[2024-10-04 22:00] VITALS: BP 122/69; PULSE 72; RESP 18; TEMP 36.6; O2SAT 96
--- NOTE | 2024-10-05 | ECHO_ITS ---
Patient Info Name: Ramirez Orantes Age: 69 years : 1955 Gender: Male Ht: 72 in Wt: 180 lbs BSA: 2.04 m2 HR: 69 bpm BP: 130 / 72 mmHg Technical Quality: Good Exam Date: 10/05/2024 9:50 AM Patient Status: I Admit Date: 10/04/2024 Exam Type: CA echo dop color flow w con Complete two-dimensional, color flow and Doppler transthoracic echocardiogram is performed with contrast to opacify the left ventricle and to improve the deliniation of the left ventricle endocardial borders. Staff Referring Physician: Sandee Weiss Second Watch Sergeant: Tiffanie Mosqueda Attending Provider: Mil Escobar Contrast/Agitated Saline Contrast/Ag. Saline: Definity Amount: 2.00 ml Administered By: Tiffanie Mosqueda Existing IV Access: Yes IV Access Condition: patent with no signs of infiltration Summary 1. Definity contrast administered improved wall motion interpretation. 2. Left ventricular chamber dimension is severely enlarged. 3. Left ventricular systolic function is severely reduced, estimated at 15-20. 4. The left ventricular diastolic function is grade IV diastolic dysfunction. 5. E/e' 24 is significantly elevated. 6. Right ventricular chamber dimension is mildly enlarged. 7. Right ventricular systolic function is mildly reduced and with abnormal TAPSE 1.5 cm. 8. Left atrial chamber dimension is severely enlarged. 9. Right atrial chamber dimension is mildly enlarged. 10. There is mild aortic valve sclerosis. 11. There is mild aortic valve regurgitation. 12. There is mild mitral valve regurgitation. 13. There is trace tricuspid valve regurgitation. 14. There is trace pulmonic regurgitation. 15. The aortic root size at the sinus of Valsalva is borderline dilated at 4.1 cm. 16. Dilated inferior vena cava with >50% collapse upon inspiration consistent with elevated right atrial pressure, 10 mmHg. Left Ventricle Definity contrast administered improved wall motion interpretation. Left ventricular chamber dimension is severely enlarged. Left ventricular systolic function is severely reduced, estimated at 15-20. The left ventricular diastolic function is grade IV diastolic dysfunction. E/e' 24 is significantly elevated. Right Ventricle Right ventricular chamber dimension is mildly enlarged. Right ventricular systolic function is mildly reduced and with abnormal TAPSE 1.5 cm. Left Atria Left atrial chamber dimension is severely enlarged. Right Atria Right atrial chamber dimension is mildly enlarged. Aortic Valve The aortic valve is trileaflet. There is mild aortic valve sclerosis. There is no aortic valve stenosis. There is mild aortic valve regurgitation. Pulmonic Valve There is trace pulmonic regurgitation. Mitral Valve There is no mitral valve stenosis. There is mild mitral valve regurgitation. Tricuspid Valve There is trace tricuspid valve regurgitation. RVSP is not measured due to an inadequate TR jet. Pericardium/Pleural There is no pericardial effusion. Inferior Vena Cava Dilated inferior vena cava with >50% collapse upon inspiration consistent with elevated right atrial pressure, 10 mmHg. Aorta The aortic root size at the sinus of Valsalva is borderline dilated at 4.1 cm. Left Ventricular Outflow Tract Name Value Normal LVOT 2D LVOT Diameter 2.3 cm LVOT Doppler LVOT Peak Velocity 95 cm/s LVOT Peak Gradient 4 mmHg LVOT Mean Gradient 2 mmHg LVOT VTI 19 cm LVOT Stroke Volume 79 ml LVOT CO 5.5 l/min LVOT CI 2.7 l/min/m2 Pulmonic Valve Name Value Normal RVOT Doppler RVOT Peak Velocity 44 cm/s RVOT Peak Gradient 1 mmHg PV Doppler PV Peak Velocity 50 cm/s PV Peak Gradient 1 mmHg Mitral Valve Name Value Normal MV Diastolic Function MV E Peak Velocity 123 cm/s MV A Peak Velocity 35 cm/s MV E/A 3.6 MV Decel Time (PW) 184 ms MV Annular TDI MV E/e' (Septal) 26.7 MV E/e' (Lateral) 23.1 MV E/e' (Average) 24.9 Tricuspid Valve Name Value Normal Estimated PAP/RSVP RA Pressure 10 mmHg <=5 Aortic Valve Name Value Normal AV Doppler AV Peak Velocity 100 cm/s AV Peak Gradient 4 mmHg AV Area (Cont Eq Rory) 4.0 cm2 AV DI (Rory) 0.95 AV Regurgitation 2D LVOT Area 4.2 cm2 Ventricles Name Value Normal LV Dimensions 2D/MM IVS Diastolic Thickness (2D) 1.0 cm 0.6-1.0 LVID Diastole (2D) 6.2 cm 4.2-5.8 LVIW Diastolic Thickness (2D) 1.0 cm 0.6-1.0 LVID Systole (2D) 5.1 cm 2.5-4.0 LVOT Diameter 2.3 cm LV Mass (2D Cubed) 267.52 g 88.00-224.00 LV Mass Index (2D Cubed) 131 g/m2 49-115 Relative Wall Thickness (2D) 0.33 <=0.42 LV Fractional Shortening/Ejection Fraction 2D/MM LV Fractional Shortening (2D) 18 % 25-43 LV EF (2D Teichholz) 37 % LV Diastolic Volume (4C MOD) 199 ml LV EF (4C MOD) 36 % LV Diastolic Volume (2C MOD) 204 ml LV EF (2C MOD) 15 % LV Diastolic Volume (BP MOD) 209 ml 62-150 LV Diastolic Volume Index (BP MOD) 103 ml/m2 34-74 LV Systolic Volume (BP MOD) 151 ml 21-61 LV Systolic Volume Index (BP MOD) 74 ml/m2 11-31 LV EF (BP MOD) 28 % 52-72 LV Diastolic Length (4C) 9.8 cm LV Systolic Length (4C) 9.5 cm LV Stroke Volume (4C MOD) 72 ml Atria Name Value Normal RA Dimensions RA Systolic [place] Length (4C) 4.9 cm 2.1-2.7 RA Area (4C) 15.4 cm2 <=18.0 Report Signatures
[2024-10-05] MEDS: DEXTROSE 50% 25 GM/50 ML SYRINGE IV PUSH (02:43)
[2024-10-05 02:45] LABS: Glucose Point of Care 41 mg/dl (65-105)
[2024-10-05 03:08] LABS: Glucose Point of Care 82 mg/dl (65-105)
[2024-10-05 04:33] LABS: Glucose Point of Care 184 mg/dl (65-105)
[2024-10-05 06:00] VITALS: BP 141/71; PULSE 100; RESP 18; TEMP 36.6; O2SAT 79
[2024-10-05 07:07] LABS: Basophils Percent Auto 0.5 % (0.2-1.2); Eosinophils Percent Auto 0.5 % (0-4.4); Hematocrit 33.8 % (42.0-52.0); Hemoglobin 10.9 g/dL (14.0-18.0); Immature Granulocyte Absolute 0.02 K/mm3 (0.00-0.031); Immature Granulocyte Percent A 0.3 % (0-0.5); Lymphocytes Absolute Auto 0.86 K/mm3 (0.9-3.2); Lymphocytes Percent Auto 13.7 % (18.3-44.2); Mean Corpuscular HGB Conc 32.2 g/dl (32-36); Mean Corpuscular Hemoglobin 29.9 pg (26-34); Mean Corpuscular Volume 92.6 fl (80-100); Monocytes Absolute Auto 0.4 K/mm3 (0.1-0.6); Neutrophils Absolute Auto 4.9 K/mm3 (1.3-6.7); Platelet Count Result 266 k/mm3 (150-375); Red Blood Count 3.65 M/mm3 (4.6-6.20); Red Cell Distribution Width 13.5 % (11.5-14.5); White Blood Count 6.3 K/mm3 (4.5-10.0)
[2024-10-05 07:24] LABS: Iron 58 ug/dL (49-181)
[2024-10-05 07:33] LABS: Alanine Aminotransferase 58 U/L (6-50); Albumin Level 3.8 g/dL (3.5-5.1); Alkaline Phosphatase 137 U/L (38-126); Anion Gap 7 mmol/L (4-12); Aspartate Amino Transferase 45 U/L (17-59); Bilirubin,Total 0.7 mg/dL (0.2-1.3); Blood Urea Nitrogen 21 mg/dL (9-20); Calcium 9.1 mg/dL (8.4-10.2); Carbon Dioxide 30 mmol/L (22-30); Chloride 101 mmol/L (98-107); Estimated CRCL calculation 89 ml/min; Estimated Glomerular Filt Rate > 60; Glucose 182 mg/dL (65-110); Magnesium 1.9 mg/dL (1.6-2.3); Potassium 5.2 mmol/L (3.4-5.0); Sodium 138 mmol/L (137-145); Total Protein 7.2 g/dL (6.3-8.2)
[2024-10-05 07:35] LABS: Percent Iron Saturation 23 % (20-50)
[2024-10-05] MEDS: lisinopriL 5 MG TABLET PO (07:58)
[2024-10-05] MEDS: FUROSEMIDE INJ 40 MG/4 ML VIAL 20 MG IV PUSH ×2 (07:59→17:00)
[2024-10-05] MEDS: EMPAGLIFLOZIN 10 MG TABLET PO (07:59)
[2024-10-05] MEDS: ACETAMINOPHEN 500 MG TABLET 1000 MG PO ×2 (08:02→16:59)
[2024-10-05 08:37] LABS: Glucose Point of Care 156 mg/dl (65-105)
[2024-10-05 08:56] VITALS: O2SAT 97
[2024-10-05 10:00] LABS: NT Pro B Type Natriuretic Pept 5510 pg/mL (19.9-100)
[2024-10-05] MEDS: PERFLUTREN LIPID MICROSPHERES 1.5 ML VIAL DILUTED TO 10 ML TOTAL VOLUME IV PUSH (10:15)
--- NOTE | 2024-10-05 10:25 | IVDEFINITY ---
Prior to administration of IV Definity the patient was educated on the risks and benefits of the imaging enhancing agent including potential adverse side effects. The patient verbalized understanding. Allergies were verified. No exclusion criteria were identified and at least one of the following inclusion criteria were met: 1) physician request, 2) patient technically difficult to image (per the [place] [employer] Echocardi[employer] guidelines of two or more segments not discernable within the apical view), or 3) questionable left ventricular function. ?
[2024-10-05 10:50] VITALS: O2SAT 96
--- NOTE | 2024-10-05 11:04 | P.PNIM_ITS ---
Progress Note: A&P Assessment and Plan (1) Acute exacerbation of CHF (congestive heart failure): Code(s): I50.9 - Heart failure, unspecified Status: Acute Assessment and Plan: * BNP 5,510 today. * Furosemide 20 mg ivp BID. * Jardiance 10 mg PO daily. * Lisinopril 5 mg PO daily. * Echocardiogram today showed: Summary 1. Definity contrast administered improved wall motion interpretation. 2. Left ventricular chamber dimension is severely enlarged. 3. Left ventricular systolic function is severely reduced, estimated at 15-20. 4. The left ventricular diastolic function is grade IV diastolic dysfunction. 5. E/e' 24 is significantly elevated. 6. Right ventricular chamber dimension is mildly enlarged. 7. Right ventricular systolic function is mildly reduced and with abnormal TAPSE 1.5 cm. 8. Left atrial chamber dimension is severely enlarged. 9. Right atrial chamber dimension is mildly enlarged. 10. There is mild aortic valve sclerosis. 11. There is mild aortic valve regurgitation. 12. There is mild mitral valve regurgitation. 13. There is trace tricuspid valve regurgitation. 14. There is trace pulmonic regurgitation. 15. The aortic root size at the sinus of Valsalva is borderline dilated at 4.1 cm. 16. Dilated inferior vena cava with >50% collapse upon inspiration consistent with elevated right atrial pressure, 10 mmHg. Left Ventricle Definity contrast administered improved wall motion interpretation. Left ventricular chamber dimension is severely enlarged. Left ventricular systolic function is severely reduced, estimated at 15-20. The left ventricular diastolic function is grade IV diastolic dysfunction. E/e' 24 is significantly elevated. * Cardiology consult. (2) CAD (coronary artery disease): Qualifiers: Associated angina: with stable angina Coronary Disease-Associated Artery/Lesion type: [place] artery [place] vs. transplanted heart: [place] heart Qualified Code(s): I25.118 - Atherosclerotic heart disease of [place] coronary artery with other forms of angina pectoris Code(s): I25.10 - Atherosclerotic heart disease of [place] coronary artery without angina pectoris Status: Acute Assessment and Plan: * Hold Rosuvastatin 5 mg PO daily. ALT 58, Alkaline phosphatase 137. (3) Non-pressure chronic ulcer of other part of right foot with necrosis of muscle: Code(s): L97.513 - Non-pressure chronic ulcer of other part of right foot with necrosis of muscle Status: Acute Assessment and Plan: * LE dopplers no deep venous thrombosis in either lower limb. * Followed by wound clinic. * Bilateral foot dressings C/D/I. * Monitor wounds and daily wound care. (4) Pleural effusion, bilateral: Code(s): J90 - Pleural effusion, not elsewhere classified Status: Acute Assessment and Plan: * CT Scan of the Chest without Contrast:Moderate bilateral pleural effusions with probable minimal pulmonary edema and atelectatic changes. * Lasix 20 mg IVP BID. 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 * Jardiance 10 mg PO daily. * Patient had low blood sugar of 41 overnight, decrease Glargine from 18 to 10 units subq qpm. * SSI and hypoglycemic protocol. (6) Transaminitis: Code(s): R74.01 - Elevation of levels of liver transaminase levels Status: Acute Assessment and Plan: * ALT 72>58. * AST 91>45. * Alkaline phosphatase 161>137. * Hold statin. * Hepatitis viral panel negative. * Abdominal US: Slightly dilated portal vein. Otherwise, normal limited abdominal ultrasound. (7) Anemia: Code(s): D64.9 - Anemia, unspecified Status: Acute Assessment and Plan: * H&H 10.9/33.8. * Iron panel: Iron 58, TIBC 251, and % saturation 23. Subjective Date/time seen: 10/05/24 11:04 Interval history: Patient sitting up in bed. Patient denies chest pain, palpitations, headache, dizziness, nausea, or vomiting. Review of Systems Review of Systems: All systems reviewed & are unremarkable except as noted in HPI and below Exam Const: General: comfortable and no acute distress Resp: Effort & Inspection: normal respiratory effort Auscultation: clear to auscultation bilaterally Cardio: Rate: regular rate Rhythm: regular rhythm GI: GI Palp: Yes Soft to palpation Auscultation: normal bowel sounds Skin: Other: Dressing to bilateral feet. C/D/I. Neuro: Speech: normal speech Extrem: General: pedal edema on the left 1+ Psych: Mental Status: mental status grossly normal Affect: normal affect Objective Data Vital Signs Vital Signs: Vital Signs - 24 hr 10/04/24 12:46 10/04/24 13:00 10/04/24 13:00 Temperature 96.8 F L Pulse Rate 68 64 Respiratory Rate 18 17 Blood Pressure 130/72 Pulse Oximetry 99 100 Oxygen Delivery Room Air Fraction of Inspired Oxygen 10/04/24 20:00 10/04/24 22:00 10/05/24 06:00 Temperature 97.8 F 97.8 F Pulse Rate 72 100 Respiratory Rate 18 18 Blood Pressure 122/69 141/71 H Pulse Oximetry 96 79 L Oxygen Delivery Room Air Fraction of Inspired Oxygen 10/05/24 08:00 10/05/24 08:56 10/05/24 10:50 Temperature Pulse Rate Respiratory Rate Blood Pressure Pulse Oximetry 97 96 Oxygen Delivery Room Air Room Air Fraction of Inspired Oxygen 21 Intake/Output Intake/Output: Intake & Output 10/02/24 10/03/24 10/04/24 10/05/24 23:59 23:59 23:59 23:59 Intake Total 790 1274 Output Total 600 2200 Balance 190 -926 Meds/Results Medications: Active Medications Generic Name Dose Route Start Last Admin Trade Name Freq PRN Reason Stop Dose Admin Acetaminophen 1,000 mg 10/05/24 08:46 Acetaminophen 500 Mg Tablet PO Q6H PRN pain Dextrose 12.5 gm 10/04/24 14:47 10/05/24 02:43 Dextrose 50% 25 Gm/50 Ml Syringe IV PUSH 12.5 gm PRN PRN Administration Hypoglycemia Protocol Empagliflozin 10 mg 10/05/24 09:00 10/05/24 07:59 Empagliflozin 10 Mg Tablet PO 10 mg DAILY RANDA Administration Furosemide 20 mg 10/04/24 17:00 10/05/24 07:59 Furosemide Inj 40 Mg/4 Ml Vial IV PUSH 20 mg BID RANDA Administration Glucagon 1 mg 10/04/24 14:47 Glucagon For Inj 1 Mg Vial IM PRN PRN Hypoglycemia Protocol Glucose 15 gm 10/04/24 14:47 Glucose Oral Gel 15 Gm Of Glucse In 37.5 Gm Tube PO PRN PRN Hypoglycemia Protocol Dextrose 1,000 mls @ 100 mls/hr 10/04/24 14:47 Dextrose 5% 1,000 Ml IVPB PRN PRN Hypoglycemia Protocol Insulin Aspart 3 - 6 units 10/04/24 17:00 10/05/24 07:59 Insulin Aspart (*Bkc) 100 Units/Ml SUB-Q Not Given TIDWM RANDA Protocol Insulin Aspart 1 - 3 units 10/04/24 21:00 10/04/24 22:48 Insulin Aspart (*Bkc) 100 Units/Ml SUB-Q Not Given HS RANDA Protocol Insulin Glargine 18 units 10/04/24 18:00 10/04/24 17:29 Insulin Glargine (*Bkc) 100 Units/Ml SUB-Q 18 units QPM RANDA Administration Lisinopril 5 mg 10/05/24 09:00 10/05/24 07:58 Lisinopril 5 Mg Tablet PO 5 mg QAM RANDA Administration Radiology Results: ITS Impressions Chest X-Ray 10/04/24 10:49 IMPRESSION: 1. Opacities in bilateral lower lung zones most likely congestive heart failure related mild pulmonary edema although differential includes pneumonia. 2. Cardiomegaly. Venous Doppler Study 10/04/24 11:58 IMPRESSION: 1. No deep venous thrombosis in either lower limb. Chest CT 10/04/24 13:53 Impression: Moderate bilateral pleural effusions with probable minimal pulmonary edema and atelectatic changes. Significant enlargement of right thyroid lobe with 4.6 cm probable cystic nodule, which is essentially unchanged since 2019. Abdomen Ultrasound 10/04/24 16:29 IMPRESSION: Slightly dilated portal vein. Otherwise, normal limited abdominal ultrasound. Labs Labs: Laboratory Results - last 24 hr 10/04/24 10/04/24 10/04/24 10:51 13:24 13:26 WBC 4.2 L RBC 3.55 L Hgb 10.6 L Hct 33.1 L MCV 93.2 MCH 29.9 MCHC 32.0 RDW 13.3 Plt Count 260 MPV 9.2 Immature Gran % (Auto) 0.2 Neut % (Auto) 72.8 Lymph % (Auto) 19.0 [place] % (Auto) 7.1 Eos % (Auto) 0.7 Baso % (Auto) 0.2 Lymph # (Auto) 0.80 L [place] # (Auto) 0.3 Eos # (Auto) 0.0 Baso # (Auto) 0.0 Abs Immat Gran (auto) 0.01 Absolute Neuts (auto) 3.1 Absolute Nucleated RBC 0.000 Nucleated RBC % 0.0 Sodium 135 L Potassium 4.3 Chloride 101 Carbon Dioxide 25 Anion Gap 9 BUN 24 H D Creatinine 0.66 L Estim Creat Clear Calc Not Reportable Estimated GFR > 60 Glucose 133 H POC Capillary Glucose Calcium 8.7 Magnesium 1.9 Iron TIBC % Saturation Ferritin Total Bilirubin 0.6 AST 91 H ALT 72 H Alkaline Phosphatase 161 H Troponin I < 0.012 0.016 D NT-Pro-B Natriuret Pep 4350 H Total Protein 6.9 Albumin 3.7 Hepatitis A IgM Ab Negative Hep Bs Antigen Negative Hep B Core IgM Ab Negative Hepatitis C Ab Screen Negative 10/04/24 10/04/24 10/05/24 16:47 20:55 02:39 WBC RBC Hgb Hct MCV MCH MCHC RDW Plt Count MPV Immature Gran % (Auto) Neut % (Auto) Lymph % (Auto) [place] % (Auto) Eos % (Auto) Baso % (Auto) Lymph # (Auto) [place] # (Auto) Eos # (Auto) Baso # (Auto) Abs Immat Gran (auto) Absolute Neuts (auto) Absolute Nucleated RBC Nucleated RBC % Sodium Potassium Chloride Carbon Dioxide Anion Gap BUN Creatinine Estim Creat Clear Calc Estimated GFR Glucose POC Capillary Glucose 136 H 198 H 41 L* Calcium Magnesium Iron TIBC % Saturation Ferritin Total Bilirubin AST ALT Alkaline Phosphatase Troponin I NT-Pro-B Natriuret Pep Total Protein Albumin Hepatitis A IgM Ab Hep Bs Antigen Hep B Core IgM Ab Hepatitis C Ab Screen 10/05/24 10/05/24 10/05/24 03:04 04:04 06:54 WBC 6.3 RBC 3.65 L Hgb 10.9 L Hct 33.8 L MCV 92.6 MCH 29.9 MCHC 32.2 RDW 13.5 Plt Count 266 MPV 9.0 Immature Gran % (Auto) 0.3 Neut % (Auto) 78.0 H Lymph % (Auto) 13.7 L [place] % (Auto) 7.0 Eos % (Auto) 0.5 Baso % (Auto) 0.5 Lymph # (Auto) 0.86 L [place] # (Auto) 0.4 Eos # (Auto) 0.0 Baso # (Auto) 0.0 Abs Immat Gran (auto) 0.02 Absolute Neuts (auto) 4.9 Absolute Nucleated RBC 0.000 Nucleated RBC % 0.0 Sodium 138 Potassium 5.2 H Chloride 101 Carbon Dioxide 30 Anion Gap 7 BUN 21 H Creatinine 0.73 Estim Creat Clear Calc 89 Estimated GFR > 60 Glucose 182 H POC Capillary Glucose 82 184 H Calcium 9.1 Magnesium 1.9 Iron 58 TIBC 251 L % Saturation 23 Ferritin 148.00 Total Bilirubin 0.7 AST 45 ALT 58 H Alkaline Phosphatase 137 H Troponin I NT-Pro-B Natriuret Pep 5510 H Total Protein 7.2 Albumin 3.8 Hepatitis A IgM Ab Hep Bs Antigen Hep B Core IgM Ab Hepatitis C Ab Screen 10/05/24 08:16 WBC RBC Hgb Hct MCV MCH MCHC RDW Plt Count MPV Immature Gran % (Auto) Neut % (Auto) Lymph % (Auto) [place] % (Auto) Eos % (Auto) Baso % (Auto) Lymph # (Auto) [place] # (Auto) Eos # (Auto) Baso # (Auto) Abs Immat Gran (auto) Absolute Neuts (auto) Absolute Nucleated RBC Nucleated RBC % Sodium Potassium Chloride Carbon Dioxide Anion Gap BUN Creatinine Estim Creat Clear Calc Estimated GFR Glucose POC Capillary Glucose 156 H Calcium Magnesium Iron TIBC % Saturation Ferritin Total Bilirubin AST ALT Alkaline Phosphatase Troponin I NT-Pro-B Natriuret Pep Total Protein Albumin Hepatitis A IgM Ab Hep Bs Antigen Hep B Core IgM Ab Hepatitis C Ab Screen Quality VTE Prophylaxis VTE prophylaxis: mechanical ordered and pharmacologic ordered
[2024-10-05 11:57] LABS: Glucose Point of Care 108 mg/dl (65-105)
[2024-10-05 14:00] VITALS: BP 125/81; PULSE 69; RESP 16; TEMP 36.1; O2SAT 100
[2024-10-05 16:58] LABS: Glucose Point of Care 92 mg/dl (65-105)
[2024-10-05 21:08] VITALS: BP 110/62; PULSE 68; RESP 20; TEMP 36.3; O2SAT 100
[2024-10-06 00:49] LABS: Glucose Point of Care 127 mg/dl (65-105)
[2024-10-06] MEDS: ACETAMINOPHEN 500 MG TABLET 1000 MG PO ×2 (02:11→07:59)
[2024-10-06 04:56] VITALS: BP 138/86; PULSE 73; RESP 16; TEMP 36.4; O2SAT 98
[2024-10-06 04:58] LABS: Glucose Point of Care 132 mg/dl (65-105)
[2024-10-06 06:45] LABS: Basophils Percent Auto 0.4 % (0.2-1.2); Eosinophils Absolute Auto 0.1 K/mm3 (0-0.3); Eosinophils Percent Auto 1.9 % (0-4.4); Hemoglobin 10.7 g/dL (14.0-18.0); Immature Granulocyte Absolute 0.03 K/mm3 (0.00-0.031); Immature Granulocyte Percent A 0.4 % (0-0.5); Lymphocytes Absolute Auto 1.57 K/mm3 (0.9-3.2); Lymphocytes Percent Auto 22.5 % (18.3-44.2); Mean Corpuscular HGB Conc 32.4 g/dl (32-36); Mean Corpuscular Volume 92.4 fl (80-100); Monocytes Absolute Auto 0.7 K/mm3 (0.1-0.6); Monocytes Percent Auto 9.5 % (2.6-8.5); Neutrophils Absolute Auto 4.6 K/mm3 (1.3-6.7); Neutrophils Percent Auto 65.3 % (45.5-73.1); Platelet Count Result 273 k/mm3 (150-375); Red Blood Count 3.57 M/mm3 (4.6-6.20); Red Cell Distribution Width 13.4 % (11.5-14.5)
[2024-10-06 07:27] LABS: Albumin Level 3.4 g/dL (3.5-5.1); Alkaline Phosphatase 105 U/L (38-126); Anion Gap 7 mmol/L (4-12); Bilirubin,Total 0.8 mg/dL (0.2-1.3); Blood Urea Nitrogen 16 mg/dL (9-20); Calcium 8.9 mg/dL (8.4-10.2); Carbon Dioxide 29 mmol/L (22-30); Chloride 100 mmol/L (98-107); Cholesterol 132 mg/dL (0-200); Estimated CRCL calculation 94 ml/min; Estimated Glomerular Filt Rate > 60; Glucose 104 mg/dL (65-110); HDL Direct 50 mg/dL; Magnesium 1.9 mg/dL (1.6-2.3); Potassium 4.2 mmol/L (3.4-5.0); Sodium 136 mmol/L (137-145); Total Protein 6.5 g/dL (6.3-8.2); Triglycerides 69 mg/dL (<150)
[2024-10-06 07:33] LABS: LDL Cholesterol Direct 50 mg/dL
[2024-10-06 07:41] LABS: Alanine Aminotransferase 41 U/L (6-50); Aspartate Amino Transferase 35 U/L (17-59)
[2024-10-06] MEDS: ENOXAPARIN 40 MG/0.4 ML SYRINGE SUB-Q (07:59)
[2024-10-06] MEDS: EMPAGLIFLOZIN 10 MG TABLET PO (08:01)
[2024-10-06] MEDS: FUROSEMIDE INJ 40 MG/4 ML VIAL 20 MG IV PUSH (08:01)
[2024-10-06] MEDS: lisinopriL 5 MG TABLET PO (08:02)
[2024-10-06 08:09] LABS: Glucose Point of Care 93 mg/dl (65-105)
[2024-10-06 08:16] VITALS: BP 136/82
[2024-10-06] MEDS: ROSUVASTATIN 5 MG TABLET PO (10:21)
[2024-10-06 10:27] LABS: Glucose Point of Care 283 mg/dl (65-105)
--- NOTE | 2024-10-06 11:15 | PM.IMPN ---
Subjective Date/time seen: 10/06/24 11:15 Review of Systems Review of Systems: All systems reviewed & are unremarkable except as noted in HPI and below Objective Data Vital Signs Vital Signs: Vital Signs - 24 hr 10/05/24 14:00 10/05/24 20:00 10/05/24 21:08 Temperature 96.9 F L 97.4 F L Pulse Rate 69 68 Respiratory Rate 16 20 Blood Pressure 125/81 110/62 Pulse Oximetry 100 100 Oxygen Delivery Room Air 10/06/24 04:56 10/06/24 08:16 Temperature 97.6 F Pulse Rate 73 Respiratory Rate 16 Blood Pressure 138/86 136/82 Pulse Oximetry 98 Oxygen Delivery Intake/Output Intake/Output: Intake & Output 10/03/24 10/04/24 10/05/24 10/06/24 23:59 23:59 23:59 23:59 Intake Total 790 1754 1540 Output Total 600 2200 Balance 190 -446 1540 Meds/Results Medications: Active Medications Generic Name Dose Route Start Last Admin Trade Name Freq PRN Reason Stop Dose Admin Acetaminophen 1,000 mg 10/05/24 08:46 10/06/24 07:59 Acetaminophen 500 Mg Tablet PO 1,000 mg Q6H PRN Administration pain Dextrose 12.5 gm 10/04/24 14:47 10/05/24 02:43 Dextrose 50% 25 Gm/50 Ml Syringe IV PUSH 12.5 gm PRN PRN Administration Hypoglycemia Protocol Empagliflozin 10 mg 10/05/24 09:00 10/06/24 08:01 Empagliflozin 10 Mg Tablet PO 10 mg DAILY RANDA Administration Enoxaparin Sodium 40 mg 10/06/24 09:00 10/06/24 07:59 Enoxaparin 40 Mg/0.4 Ml Syringe SUB-Q 40 mg DAILY RANDA Administration Furosemide 20 mg 10/04/24 17:00 10/06/24 08:01 Furosemide Inj 40 Mg/4 Ml Vial IV PUSH 20 mg BID RANDA Administration Glucagon 1 mg 10/04/24 14:47 Glucagon For Inj 1 Mg Vial IM PRN PRN Hypoglycemia Protocol Glucose 15 gm 10/04/24 14:47 Glucose Oral Gel 15 Gm Of Glucse In 37.5 Gm Tube PO PRN PRN Hypoglycemia Protocol Dextrose 1,000 mls @ 100 mls/hr 10/04/24 14:47 Dextrose 5% 1,000 Ml IVPB PRN PRN Hypoglycemia Protocol Insulin Aspart 3 - 6 units 10/04/24 17:00 10/06/24 08:15 Insulin Aspart (*Bkc) 100 Units/Ml SUB-Q Not Given TIDWM RANDA Protocol Insulin Aspart 1 - 3 units 10/04/24 21:00 10/05/24 22:17 Insulin Aspart (*Bkc) 100 Units/Ml SUB-Q Not Given HS RANDA Protocol Insulin Glargine 10 units 10/05/24 18:00 10/05/24 17:00 Insulin Glargine (*Bkc) 100 Units/Ml SUB-Q Not Given QPM RANDA Lisinopril 5 mg 10/05/24 09:00 10/06/24 08:02 Lisinopril 5 Mg Tablet PO 5 mg QAM RANDA Administration Rosuvastatin Calcium 5 mg 10/06/24 09:45 10/06/24 10:21 Rosuvastatin 5 Mg Tablet PO 5 mg DAILY RANDA Administration Radiology Results: ITS Impressions Chest X-Ray 10/04/24 10:49 IMPRESSION: 1. Opacities in bilateral lower lung zones most likely congestive heart failure related mild pulmonary edema although differential includes pneumonia. 2. Cardiomegaly. Venous Doppler Study 10/04/24 11:58 IMPRESSION: 1. No deep venous thrombosis in either lower limb. Chest CT 10/04/24 13:53 Impression: Moderate bilateral pleural effusions with probable minimal pulmonary edema and atelectatic changes. Significant enlargement of right thyroid lobe with 4.6 cm probable cystic nodule, which is essentially unchanged since 2019. Abdomen Ultrasound 10/04/24 16:29 IMPRESSION: Slightly dilated portal vein. Otherwise, normal limited abdominal ultrasound. Labs Labs: Laboratory Results - last 24 hr 10/05/24 10/05/24 10/05/24 11:48 16:50 21:11 WBC RBC Hgb Hct MCV MCH MCHC RDW Plt Count MPV Immature Gran % (Auto) Neut % (Auto) Lymph % (Auto) [place] % (Auto) Eos % (Auto) Baso % (Auto) Lymph # (Auto) [place] # (Auto) Eos # (Auto) Baso # (Auto) Abs Immat Gran (auto) Absolute Neuts (auto) Absolute Nucleated RBC Nucleated RBC % Sodium Potassium Chloride Carbon Dioxide Anion Gap BUN Creatinine Estim Creat Clear Calc Estimated GFR Glucose POC Capillary Glucose 108 H 92 127 H Calcium Magnesium Total Bilirubin AST ALT Alkaline Phosphatase Total Protein Albumin Triglycerides Cholesterol LDL Cholesterol Direct HDL Direct 10/06/24 10/06/24 10/06/24 02:07 06:13 07:36 WBC 7.0 RBC 3.57 L Hgb 10.7 L Hct 33.0 L MCV 92.4 MCH 30.0 MCHC 32.4 RDW 13.4 Plt Count 273 MPV 9.0 Immature Gran % (Auto) 0.4 Neut % (Auto) 65.3 Lymph % (Auto) 22.5 [place] % (Auto) 9.5 H Eos % (Auto) 1.9 Baso % (Auto) 0.4 Lymph # (Auto) 1.57 [place] # (Auto) 0.7 H Eos # (Auto) 0.1 Baso # (Auto) 0.0 Abs Immat Gran (auto) 0.03 Absolute Neuts (auto) 4.6 Absolute Nucleated RBC 0.000 Nucleated RBC % 0.0 Sodium 136 L Potassium 4.2 Chloride 100 Carbon Dioxide 29 Anion Gap 7 BUN 16 Creatinine 0.69 L Estim Creat Clear Calc 94 Estimated GFR > 60 Glucose 104 POC Capillary Glucose 132 H 93 Calcium 8.9 Magnesium 1.9 Total Bilirubin 0.8 AST 35 ALT 41 Alkaline Phosphatase 105 Total Protein 6.5 Albumin 3.4 L Triglycerides 69 Cholesterol 132 LDL Cholesterol Direct 50 HDL Direct 50 10/06/24 10:23 WBC RBC Hgb Hct MCV MCH MCHC RDW Plt Count MPV Immature Gran % (Auto) Neut % (Auto) Lymph % (Auto) [place] % (Auto) Eos % (Auto) Baso % (Auto) Lymph # (Auto) [place] # (Auto) Eos # (Auto) Baso # (Auto) Abs Immat Gran (auto) Absolute Neuts (auto) Absolute Nucleated RBC Nucleated RBC % Sodium Potassium Chloride Carbon Dioxide Anion Gap BUN Creatinine Estim Creat Clear Calc Estimated GFR Glucose POC Capillary Glucose 283 H Calcium Magnesium Total Bilirubin AST ALT Alkaline Phosphatase Total Protein Albumin Triglycerides Cholesterol LDL Cholesterol Direct HDL Direct
--- NOTE | 2024-10-06 11:56 | P.CONCA_ITS ---
Assessment and Plan Assessment and plan (1) Chronic systolic (congestive) heart failure: Code(s): I50.22 - Chronic systolic (congestive) heart failure Status: Acute (2) CAD (coronary artery disease): Qualifiers: Coronary Disease-Associated Artery/Lesion type: [place] artery [place] vs. transplanted heart: [place] heart Associated angina: with stable angina Q ualified Code(s): I25.118 - Atherosclerotic heart disease of [place] coronary artery with other forms of angina pectoris Code(s): I25.10 - Atherosclerotic heart disease of [place] coronary artery without angina pectoris Status: Acute Plan 69-year-old man with coronary artery disease and longstanding severe ischemic cardiomyopathy. It is likely that his mild edema and worsening ejection fraction has to do with him being on much less medical therapy that he was the last time I saw him. I am going to transition him back from lisinopril to the previously described guideline directed medical therapy. I will start lower doses of carvedilol and Entresto to start with in hopes of not precipitating hypotension. IV furosemide can be stopped at this time. His follow-up should be with me in the office in a couple of months to see how he is doing and to possibly be titrated back up to previous doses of Entresto and carvedilol. That will also give us the opportunity to be discuss primary prevention with a defibrillator. He has chronic LV dysfunction so he does not require a Life Vest device. Patric Thomas MD [facility] History of Present Illness History of Present Illness Consult date/time: 10/06/24 11:56 Reason For Visit: CHF Exac Narrative: This is a 69-year-old man with a well known history of coronary disease is significant ischemic cardiomyopathy who I am seeing at the request of the hospitalist today because of an apparent mild exacerbation of his congestive heart failure. The patient is not experiencing any symptoms of chest pain or shortness of breath he says he was sent to the hospital for evaluation a couple of days ago because of some lower extremity edema somewhat worse on the left than on the right. He has been dealing with diabetic ulcers and did have a debridement of 1 of his ulcers and was at a wound care appointment were no worsening of edema was noted. He feels well at this time and offers no complaints and is hoping to be discharged. I have not seen this gentleman myself in the office for about a year. His last visit in our office was in December 2023 when he saw my nurse practitioner. His cardiac history dates a dates back to many years ago in the remote past when he sustained a large anterior infarction. I followed him for quite a few years and then there had been a hiatus in follow-up. He came back to the office for follow-up in August of 2022 because of symptoms of exertional chest pain prompting concern. In 2022 he had a follow-up catheterization done in [place] demonstrating a low ejection fraction of 23% he had a total occlusion of his LAD with his WILLIAM graft being patent. He did have significant stenosis noted in his circumflex which was treated with a 4 mm drug-eluting stent with very good angiographic result. When he was seen in our office he had done well with that. In the past we had discussed defibrillator implant because of his low ejection fraction which is something that he declined. When he was last seen in our office his medical regimen included carvedilol at 25 mg q.12 hours, Entresto at 49/51 mg twice daily and spironolactone 25 mg daily. He states that he was clinically doing very well enjoying a very good functional capacity able to walk every day for exercise and having no problems. His other physicians have adjusted his medications to just lisinopril 5 mg daily with the idea that his aggressive medical regimen may not be required any longer. Following admission to the hospital an echocardiogram was done which interestingly was given to Dr. Roldan for interpretation even though he has been my patient for a long time. The study is unfavorable showing ejection fraction of 10-15%. In this setting I am seeing him in consultation. Review of Systems 2 Constitutional: Constitutional: Reports no additional constitutional complaints Eyes: Eyes: Reports no additional eye complaints ENT: Reports system reviewed and no additional complaints, except as documented Cardiovascular: Cardiovascular: Reports as per HPI Respiratory: Respiratory: Reports no additional respiratory complaints Gastrointestinal: Gastrointestinal: Reports no additional gastrointestinal complaints Musculoskeletal: Musculoskeletal: Reports no additional musculoskeletal complaints Integumentary/Breasts: Skin/Breast: Reports system reviewed and no additional complaints, except as docu Neurologic: Reports system reviewed and no additional complaints, except as documented Endocrine: Endocrine: Reports no additional endocrine complaints Hematologic/Lymphatic: Hematologic/Lymphatic: Reports no additional hematologic/lymphatic complaints Allergic/Immunologic: Allergic/Immunologic: Reports no additional allergic/immunologic complaints [facility] Past Medical History Medical History (Updated 10/05/24 @ 15:20 by Yolanda Calles, BOB) Non-pressure chronic ulcer of other part of right foot with necrosis of muscle Heel ulcer due to DM History of colon cancer 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 GERD (gastroesophageal reflux disease) Carpal tunnel syndrome Surgical History Surgical History History of incision and drainage Complex I&D Right foot infected diabetic foot ulcer measuring approximately 5x4cm. on 12/19/21 Status post debridement (12/2020) Right foot abscess, osteomyelitis. History of coronary artery stent placement History of cardiac catheterization History of colonoscopy with polypectomy History of repair of hiatal hernia (2001) History of coronary artery bypass graft History of carpal tunnel release History of arthroscopy of right knee History of hernia repair (2018) Finger amputee Right 2nd finger secondary to crush injury. History of right hemicolectomy with ileocolic anastomsis in 2019 Family History Family History Sibling Family history of malignant neoplasm Father Family history of chronic obstructive pulmonary disease Hypertension Heart disease Mother Hypertension Cancer Sibling Cancer Sibling Cancer Sibling Cancer Social History Social History Social History: The patient is and lives with his and 1 son in [place]. They have 4 children. 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 No alcohol or illicit substance abuse. Surrogate medical decision maker: Tash Orantes, spouse. Code status: Full code. Years smoked: 10 Smoking status: Former smoker Alcohol intake: never Substance use: never Substance use type: does not use Do You Feel Safe in your Home?: Yes Lack of Transportation: No Lack of Food: Never True Current Housing: I Have Housing Concerned About Future Housing: No Difficulty Paying Gas/Electric Bills: No Difficulty Paying for Meds: No Currently Unemployed: No Education: High School Diploma/GED Difficulty w/ Childcare or Family Care: No Living arrangements: with family Occupation/Education: retired Gender identity (if verbalized by the patient): Male Sexual Orientation (if Verbalized by the Patient): Straight or Heterosexual Spiritual care concerns: No Meds Home Medications and Allergies Home Medications ?Medication ?Instructions ?Recorded ?Confirmed ?Type Jardiance 10 mg tablet 10 mg PO DAILY 30 days #30 tabs 06/18/24 10/04/24 Rx (empagliflozin) acetaminophen 500 mg tablet 1,000 mg PO Q6H PRN pain 08/27/24 10/04/24 History (Acetaminophen Extra Strength) meclizine 50 mg tablet (Antivert) 50 mg PO BID 08/27/24 10/04/24 History metformin 500 mg tablet 500 mg PO BID 08/27/24 10/04/24 History lisinopril 5 mg tablet 5 mg PO QAM #30 tabs 09/03/24 10/04/24 Rx 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 sensor (Dexcom G7 #3 ea 09/13/24 10/04/24 Rx Sensor device) 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,marking stitcher,cont #1 ea 09/13/24 10/04/24 Rx (Dexcom G7 Photographic Platemaker) insulin glargine 100 unit/mL (3 18 unit (0.18 mL) subcut QPM #15 mL 09/27/24 10/04/24 Rx mL) subcutaneous pen (Lantus Solostar U-100 Insulin) rosuvastatin 5 mg tablet 5 mg PO DAILY #90 tabs 10/03/24 10/04/24 Rx Allergies Allergy/AdvReac Type Severity Reaction Status Date / Time No Known Allergies Allergy Verified 09/27/24 09:35 Vital Signs Vital Signs - 24 hr 10/05/24 14:00 10/05/24 20:00 10/05/24 21:08 Temperature 36.1 C L 36.3 C L Pulse Rate 69 68 Respiratory Rate 16 20 Blood Pressure 125/81 110/62 Pulse Oximetry 100 100 Oxygen Delivery Room Air 10/06/24 04:56 10/06/24 08:00 10/06/24 08:16 Temperature 36.4 C Pulse Rate 73 Respiratory Rate 16 Blood Pressure 138/86 136/82 Pulse Oximetry 98 Oxygen Delivery Room Air Exam 2 Const: General: comfortable and no acute distress Other: Tall thin white male appearing a bit older than his stated age otherwise in no distress HENMT: Mouth: Yes moist mucous membranes Eyes: Sclera: sclerae normal Neck: Neck: supple Resp: Effort & Inspection: normal respiratory effort Other: Scant basilar crackles are noted Cardio: Rate: regular rate Rhythm: regular rhythm GI: GI Palp: Yes Soft to palpation Auscultation: normal bowel sounds Skin: General skin exam: normal color Neuro: Other: Alert and oriented x3 Extrem: Other: No significant edema on the right modest edema on the left his left foot bandage was not removed for examination Results Labs and Meds 10/06/24 06:13 10/06/24 06:13 Lab results: Cardiac Enzymes 10/06/24 Range/Units 06:13 AST 35 (17-59) U/L Lipids 10/06/24 Range/Units 06:13 Triglycerides 69 (<150) mg/dL Cholesterol 132 (0-200) mg/dL CBC 10/06/24 Range/Units 06:13 WBC 7.0 (4.5-10.0) K/mm3 RBC 3.57 L (4.6-6.20) M/mm3 Hgb 10.7 L (14.0-18.0) g/dL Hct 33.0 L (42.0-52.0) % Plt Count 273 (150-375) k/mm3 Lymph # (Auto) 1.57 (0.9-3.2) K/mm3 [place] # (Auto) 0.7 H (0.1-0.6) K/mm3 Eos # (Auto) 0.1 (0-0.3) K/mm3 Baso # (Auto) 0.0 (0.0-0.1) K/mm3 Comprehensive Metabolic Panel 10/06/24 Range/Units 06:13 Sodium 136 L (137-145) mmol/L Potassium 4.2 (3.4-5.0) mmol/L Chloride 100 (98-107) mmol/L Carbon Dioxide 29 (22-30) mmol/L BUN 16 (9-20) mg/dL Creatinine 0.69 L (0.7-1.3) mg/dL Glucose 104 (65-110) mg/dL Calcium 8.9 (8.4-10.2) mg/dL AST 35 (17-59) U/L ALT 41 (6-50) U/L Alkaline Phosphatase 105 (38-126) U/L Total Protein 6.5 (6.3-8.2) g/dL Albumin 3.4 L (3.5-5.1) g/dL Intake and Output 10/05/24 10/06/24 10/06/24 23:59 07:59 15:59 Intake Total 480 1300 240 Balance 480 1300 240 Intake: Oral 480 1300 240 Other: # Unmeasured Voids 3 1 Number of Bowel Movements Today 1
[2024-10-06 12:02] LABS: Glucose Point of Care 280 mg/dl (65-105)
[2024-10-06] MEDS: INSULIN ASPART (*BKC) 100 UNITS/ML SUB-Q (12:16)
--- NOTE | 2024-10-06 13:05 | P.DS_ITS ---
DS: Admitting Diagnosis Discharge Date 10/06/2024 Admitting Diagnosis Leg and foot swelling. DS: Discharge Diagnosis Discharge Diagnosis (1) Acute exacerbation of CHF (congestive heart failure): Code(s): I50.9 - Heart failure, unspecified Status: Acute (2) CAD (coronary artery disease): Qualifiers: Coronary Disease-Associated Artery/Lesion type: [place] artery [place] vs. transplanted heart: [place] heart Associated angina: with stable angina Qualified Code(s): I25.118 - Atherosclerotic heart disease of [place] coronary artery with other forms of angina pectoris Code(s): I25.10 - Atherosclerotic heart disease of [place] coronary artery without angina pectoris Status: Acute (3) Non-pressure chronic ulcer of other part of right foot with necrosis of muscle: Code(s): L97.513 - Non-pressure chronic ulcer of other part of right foot with necrosis of muscle Status: Acute (4) Pleural effusion, bilateral: Code(s): J90 - Pleural effusion, not elsewhere classified Status: Acute (5) 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: Qualifiers: Diabetes mellitus terminal operations manager insulin use: with terminal operations manager use Qualified Code(s): E11.3593 - Type 2 diabetes mellitus with proliferative diabetic retinopathy without macular edema, bilateral; Z79.4 - MCFP (current) use of insulin Code(s): E11.3593 - Type 2 diabetes mellitus with proliferative diabetic retinopathy without macular edema, bilateral Status: Acute (6) Transaminitis: Code(s): R74.01 - Elevation of levels of liver transaminase levels Status: Acute (7) Anemia: Code(s): D64.9 - Anemia, unspecified Status: Acute DS: Summary Hospital Course Hospital Course: Patient is a 69 year old male with PMH of DM2, CAD s/p stents and CABG, ischemic cardiomyopathy, left foot wound who was sent to the ER from wound care for leg swelling. Patient noted that he woke up this morning with SOB and orthopnea. Er eval vital signs BP 147/87, labs notable hgb 10.6, AST 91, ALT 72, NTproBNP 4350. Troponin negative. Venous doppler negative, CT chest showed moderate pleural effusions with pulm edema and unchanged enlarged right thyroid nodule with 4.6cm cystic nodule, unchanged from 2019. Abdominal US showed a slightly dilated portal vein. Echocardiogram showed: Summary 1. Definity contrast administered improved wall motion interpretation. 2. Left ventricular chamber dimension is severely enlarged. 3. Left ventricular systolic function is severely reduced, estimated at 15-20. 4. The left ventricular diastolic function is grade IV diastolic dysfunction. 5. E/e' 24 is significantly elevated. 6. Right ventricular chamber dimension is mildly enlarged. 7. Right ventricular systolic function is mildly reduced and with abnormal TAPSE 1.5 cm. 8. Left atrial chamber dimension is severely enlarged. 9. Right atrial chamber dimension is mildly enlarged. 10. There is mild aortic valve sclerosis. 11. There is mild aortic valve regurgitation. 12. There is mild mitral valve regurgitation. 13. There is trace tricuspid valve regurgitation. 14. There is trace pulmonic regurgitation. 15. The aortic root size at the sinus of Valsalva is borderline dilated at 4.1 cm. 16. Dilated inferior vena cava with >50% collapse upon inspiration consistent with elevated right atrial pressure, 10 mmHg. Left Ventricle Definity contrast administered improved wall motion interpretation. Left ventricular chamber dimension is severely enlarged. Left ventricular systolic function is severely reduced, estimated at 15-20. The left ventricular diastolic function is grade IV diastolic dysfunction. E/e' 24 is significantly elevated. * Cardiology consulted. Lisinopril stopped. Patient started on Entresto 24-26 mg 1 tab q 12, Carvedilol 12.5 mg PO q12, and Spironolactone 25 mg PO daily. Patient to follow up with Cardiology in a few months Status at Discharge Functional status at discharge: independent ambulation Overall status at discharge: patient is progressing back to baseline Time Spent with Patient Time attestation: Total time spent providing and/or coordinating discharge services: Time spent: Greater than 30 minutes Exam Const: General: comfortable and no acute distress Resp: Effort & Inspection: normal respiratory effort Other: Scant basilar crackles are noted. Cardio: Rate: regular rate Rhythm: regular rhythm GI: GI Palp: Yes Soft to palpation Auscultation: normal bowel sounds Neuro: General: gait normal Extrem: General: pedal edema on the left (trace edema) Psych: Mental Status: mental status grossly normal Affect: normal affect DS: Data Data Completed and Pending Labs on day of discharge: Labs from last 24 hours 10/06/24 10/06/24 10/06/24 11:58 10:23 07:36 WBC RBC Hgb Hct MCV MCH MCHC RDW Plt Count MPV Immature Gran % (Auto) Neut % (Auto) Lymph % (Auto) [place] % (Auto) Eos % (Auto) Baso % (Auto) Lymph # (Auto) [place] # (Auto) Eos # (Auto) Baso # (Auto) Abs Immat Gran (auto) Absolute Neuts (auto) Absolute Nucleated RBC Nucleated RBC % Sodium Potassium Chloride Carbon Dioxide Anion Gap BUN Creatinine Estim Creat Clear Calc Estimated GFR Glucose POC Capillary Glucose 280 H 283 H 93 Calcium Magnesium Total Bilirubin AST ALT Alkaline Phosphatase Total Protein Albumin Triglycerides Cholesterol LDL Cholesterol Direct HDL Direct 10/06/24 10/06/24 10/05/24 06:13 02:07 21:11 WBC 7.0 RBC 3.57 L Hgb 10.7 L Hct 33.0 L MCV 92.4 MCH 30.0 MCHC 32.4 RDW 13.4 Plt Count 273 MPV 9.0 Immature Gran % (Auto) 0.4 Neut % (Auto) 65.3 Lymph % (Auto) 22.5 [place] % (Auto) 9.5 H Eos % (Auto) 1.9 Baso % (Auto) 0.4 Lymph # (Auto) 1.57 [place] # (Auto) 0.7 H Eos # (Auto) 0.1 Baso # (Auto) 0.0 Abs Immat Gran (auto) 0.03 Absolute Neuts (auto) 4.6 Absolute Nucleated RBC 0.000 Nucleated RBC % 0.0 Sodium 136 L Potassium 4.2 Chloride 100 Carbon Dioxide 29 Anion Gap 7 BUN 16 Creatinine 0.69 L Estim Creat Clear Calc 94 Estimated GFR > 60 Glucose 104 POC Capillary Glucose 132 H 127 H Calcium 8.9 Magnesium 1.9 Total Bilirubin 0.8 AST 35 ALT 41 Alkaline Phosphatase 105 Total Protein 6.5 Albumin 3.4 L Triglycerides 69 Cholesterol 132 LDL Cholesterol Direct 50 HDL Direct 50 10/05/24 16:50 WBC RBC Hgb Hct MCV MCH MCHC RDW Plt Count MPV Immature Gran % (Auto) Neut % (Auto) Lymph % (Auto) [place] % (Auto) Eos % (Auto) Baso % (Auto) Lymph # (Auto) [place] # (Auto) Eos # (Auto) Baso # (Auto) Abs Immat Gran (auto) Absolute Neuts (auto) Absolute Nucleated RBC Nucleated RBC % Sodium Potassium Chloride Carbon Dioxide Anion Gap BUN Creatinine Estim Creat Clear Calc Estimated GFR Glucose POC Capillary Glucose 92 Calcium Magnesium Total Bilirubin AST ALT Alkaline Phosphatase Total Protein Albumin Triglycerides Cholesterol LDL Cholesterol Direct HDL Direct Discharge Plan Discharge Attending physician on discharge: Mil Escobar Consulting providers: Patric Thomas Discharging Clinician: Yolanda Calles Anticipated Discharge Date/Time: 10/06/24 13:34 Patient Disposition: Home with Home Health Service Activity: may shower and as tolerated Diet: heart healthy and diabetic Discharge Instructions: * Take medications as prescribed. * Report any dizziness or low blood pressure to provider. * Follow diabetic diet. * Weigh yourself daily. If you gain 1 pound a day for 3 days in a row or 3 pounds in 1 day notify your provider. Thank you for entrusting [facility] with your healthcare! Patient Instructions: Antibiotic Form, Heart Failure (DC), Coronary Artery Disease (DC), Heart Healthy Diet (DC), Diabetes and Nutrition (DC) Patient Language: Welsh Stand Alone Forms: General Discharge Information Follow-up/Referrals: Patric Thomas MD [Physician] - Call for Appointment (COUPLE OF MONTHS) Ashwin Lawler MD [Primary Care Provider] - 1 Week Discharge Medications: New carvedilol [Coreg] 12.5 mg Tablet 12.5 mg PO Q12HR Qty: 60 0RF spironolactone 25 mg Tablet 25 mg PO QAM Qty: 30 0RF Entresto 24-26 mg Tablet 1 tablet PO Q12HR Qty: 60 0RF Continued meclizine [Antivert] 50 mg tablet 50 mg PO BID acetaminophen [Acetaminophen Extra Strength] 500 mg tablet 1,000 mg PO Q6H PRN (Reason: pain) metformin 500 mg tablet 500 mg PO BID Jardiance 10 mg tablet 10 mg PO DAILY 30 Days Qty: 30 6RF (DME) Dexcom G7 Sensor Device See Rx Instructions .Route Qty: 3 5RF Rx Instructions: Change sensor every 10 days (DME) Dexcom G7 Tool Grinder Operator Surface Misc See Rx Instructions .Route Qty: 1 0RF Rx Instructions: As directed rosuvastatin 5 mg tablet 5 mg PO DAILY Qty: 90 1RF Changed insulin glargine [Lantus Solostar U-100 Insulin] 100 unit/mL (3 mL) insulin pen 10 unit subcut QPM Qty: 15 0RF Discontinued lisinopril 5 mg Tablet 5 mg PO QAM Qty: 30 0RF Date of admission: 10/05/24 15:11 Primary Care Provider: Ashwin Lawler Admitting Provider: Mil Escobar Attending physician on admission: Mil Escobar Condition: Improved Hospitalist MIPS Heart Failure (Exclusion) Patient has history of Heart Transplant or Left Ventricular Assistive Device?: No IF YES, STOP HERE Heart Failure (Qualifier) Patient has current or prior documentation of LVEF less than or equal to 40%, or mod/servere depressed LVSF?: Yes IF NO, STOP HERE If Yes, Heart Failure (Qualifier) Patient was prescribed or already taking an Angiotensin-Converting Enzyme (ABDIEL) Inhibitor, or Antiotensin Receptor Abbie (ARB): Yes Patient was prescribed or already taking bisoprolol, carvedilol, or sustained release metoprolol succinate: Yes
== END 2024-10-06 14:35 | disposition home health service (06) | DRG 291 ==
LOC: ANHED 10:07 → ANH3MEDSUR 12:29
PROVIDERS: Internal Medicine; Admitting Provider General Practice; Emergency Provider Emergency Medicine; PCP Family Medicine; Visit Provider Nurse Practitioner Family
DX: I11.0 Hypertensive heart disease with heart failure (principal); I50.23 Acute on chronic systolic (congestive) heart failure; L97.429 Non-pressure chronic ulcer of left heel and midfoot with unspecified severity; L97.519 Non-pressure chronic ulcer of other part of right foot with unspecified severity; E11.621 Type 2 diabetes mellitus with foot ulcer; E11.3593 Type 2 diabetes mellitus with proliferative diabetic retinopathy without macular edema, bilateral; E11.40 Type 2 diabetes mellitus with diabetic neuropathy, unspecified; I25.10 Atherosclerotic heart disease of native coronary artery without angina pectoris; I25.5 Ischemic cardiomyopathy; D64.9 Anemia, unspecified; K44.9 Diaphragmatic hernia without obstruction or gangrene; K21.9 Gastro-esophageal reflux disease without esophagitis; F32.9 Major depressive disorder, single episode, unspecified; Z85.038 Personal history of other malignant neoplasm of large intestine; Z79.4 Long term (current) use of insulin; Z95.5 Presence of coronary angioplasty implant and graft; Z95.1 Presence of aortocoronary bypass graft; Z89.021 Acquired absence of right finger(s); Z87.891 Personal history of nicotine dependence
CPT/HCPCS: 36415; 71045; 71250; 76705; 80053; 80061; 80074; 82728; 82948; 83540; 83550; 83735; 83880; 84484; 85025; 93005; 93970; 96374; 96375; 99213; 99285; A9270; C8929; G0378; G0463; J1650; J1815; J1938; Q9957

== ENCOUNTER 2024-10-29 10:05 | Outpatient (CLI) | payer MEDICARE, SELFPAY ==
--- NOTE | ~2024-10-29 | US_ITS ---
BILATERAL LOWER EXTREMITY VENOUS ULTRASOUND Ordering provider: Blair Coreas MD History: . M79.605 - Pain in left leg . Comparison: None. FINDINGS: RIGHT LOWER EXTREMITY VEINS: --COMMON FEMORAL: Patent and free of thrombus. Normal compressibility, phasic flow and augmentation. --PROXIMAL SUPERFICIAL FEMORAL: Patent and free of thrombus. Normal compressibility, phasic flow and augmentation. --DISTAL SUPERFICIAL FEMORAL: Patent and free of thrombus. Normal compressibility, phasic flow and au gmentation. --POPLITEAL: Patent and free of thrombus. Normal compressibility, phasic flow and augmentation. --POSTERIOR TIBIAL: Patent and free of thrombus. Normal compressibility, phasic flow and augmentation . LEFT LOWER EXTREMITY VEINS: --COMMON FEMORAL: Patent and free of thrombus. Normal compressibility, phasic flow and augmentation. --PROXIMAL SUPERFICIAL FEMORAL: Patent and free of thrombus. Normal compressibility, phasic flow and augmentation. --DISTAL SUPERFICIAL FEMORAL: Patent and free of thrombus. Normal compressibility, phasic flow and au gmentation. --POPLITEAL: Patent and free of thrombus. Normal compressibility, phasic flow and augmentation. --POSTERIOR TIBIAL: Patent and free of thrombus. Normal compressibility, phasic flow and augmentation . IMPRESSION: Negative bilateral lower extremity venous US. No deep vein thrombosis. Reviewed, dictated and finalized at location A.
--- OUTSIDE RECORDS SUMMARY | 2024-10-29 10:17 | XMS_ITS | Clinical Summary ---
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
--- OUTSIDE RECORDS SUMMARY | 2024-10-29 10:17 | XMS_ITS | Encounter Summary ---
Author Organization [facility] Address [address] [place] [address] Care Team Providers Care Lumber Checker Name Role Phone Unavailable Primary Care Provider Unavailabl e Encounter Details Date Type Department Care Team (Late st Contact Info) Description 09/07/2006 Outpatient Historical [facility] Cardiovas and Thor Surg at [facility] [address] [facility] [place] [address] Elena Navarro MD [address] [facility] [address] [place] [address] Social History Tobacco Use Types Packs/Day Years Used Date Smoking Tobacco: Never Assessed Sex and Gender Information Value Date Recorded Sex Assigned at Not on file 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
--- OUTSIDE RECORDS SUMMARY | 2024-10-29 10:17 | XMS_ITS | Encounter Summary ---
Author Organization [facility] Address [address] [place] [address] Care Team Providers Care Plastics Bench Mechanic Name Role Phone Unavailable Primary Care Provider Unavailabl e Encounter Details Date Type Department Care Team (Late st Contact Info) Description 10/12/2006 Outpatient Historical [facility] Cardiovas and Thor Surg at [facility] [address] [facility] [place] [address] Elena Navarro MD [address] [facility] [address] [place] [address] Social History Tobacco Use Types Packs/Day Years Used Date Smoking Tobacco: Never Assessed Sex and Gender Information Value Date Recorded Sex Assigned at Not on file 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
--- OUTSIDE RECORDS SUMMARY | 2024-10-29 10:17 | XMS_ITS | Encounter Summary ---
Author Organization [employer] [facility] Address [address] [place] [address] Care Team Providers Care Principal Network Engineer Name Role Phone Unavailable Primary Care Provider Unavailabl e Encounter Details Date Type Department Care Team (Latest Contact Info) Description 10/12/2006 Outpatient Historical [facility] Navarro, Elena Baig MD [address] [place] [id number] Follow-Up Examination, Following Other Surgery (Primary Dx); Coronary Atherosclerosis of [place] Coronary Artery; Unspecified Pleural Effusion; Pulmonary Collapse Social History Tobacco Use Types Packs/Day Years Used Date Smoking Tobacco: Never Assessed Sex and Gender Information Value Date Recorded Sex Assigned at Not on file 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
--- OUTSIDE RECORDS SUMMARY | 2024-10-29 10:17 | XMS_ITS | Encounter Summary ---
Author Organization [facility] Address [address] [place] [address] Care Team Providers Care Candy Mixer Name Role Phone Unavailable Primary Care Provider Unavailabl e Encounter Details Date Type Department Care Team (Late st Contact Info) Description 09/07/2006 Outpatient Historical [facility] Thor Surg at [facility] [address] [place] [address] Lily Dalton PA [address] [address] [place] [address] Social History Tobacco Use Types Packs/Day Years Used Date Smoking Tobacco: Never Assessed Sex and Gender Information Value Date Recorded Sex Assigned at Not on file 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
--- OUTSIDE RECORDS SUMMARY | 2024-10-29 10:17 | XMS_ITS | Encounter Summary ---
Author Organization [employer] Address [address] [place] [address] Care Team Providers Care Nurse Transitional Name Role Phone Unavailable Primary Care Provider Unavailabl e Encounter Details Date Type Department Care Team (Late st Contact Info) Description 09/10/2006 Outpatient Historical [facility] Support Serv. ([facility] Card[facility]) [address] 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
--- OUTSIDE RECORDS SUMMARY | 2024-10-29 10:18 | XMS_ITS | Clinical Summary ---
Author Organization [facility] Address [address] [place] [address] Care Team Providers Care Generation Engineer Name Role Phone Ashwin Lawler MD Primary Care Provider [phone] Source Comments [facility],non-owned Affiliates and Associated Physician Practices is amultiple site organization consisting of ambulatory clinics and hospital sitesin [place], [place], [place] and [place]. This disclosure is being madepursuant to the Care Everywhere program and may not contain all information available regarding this patient. Last updated 18.[facility] Allergies No known active allergies Medications * [...] place to sleep or slept in a half-way (including now)? 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
--- OUTSIDE RECORDS SUMMARY | 2024-10-29 10:18 | XMS_ITS | Encounter Summary ---
Author Organization [employer] Address [address] [place] [address] Care Team Providers Care Back Padder Name Role Phone Unavailable Primary Care Provider Unavailabl e Encounter Details Date Type Department Care Team (Late st Contact Info) Description 06/08/2005 Outpatient Historical [facility] Support Serv. ([facility] Card[facility]) [address] 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
--- OUTSIDE RECORDS SUMMARY | 2024-10-29 10:18 | XMS_ITS | Encounter Summary ---
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 Patient Call Back number: [phone] AT SYSTEMS OFFICER documented in this encounter Plan of Treatment Not on file documented as of this encounter Visit Diagnoses Not on filedocumented in this encounter Care Teams Mobile Ui/Ux Designer Relationship Specialty Start Date End Date Ashwin Lawler MD PCP - General 09/26/17 documented as of this encounter
--- OUTSIDE RECORDS SUMMARY | 2024-10-29 10:18 | XMS_ITS | Encounter Summary ---
Author Organization [employer] Address [address] [place] [address] Care Team Providers Care Electric Shipyard Operator Name Role Phone Unavailable Primary Care Provider Unavailabl e Encounter Details Date Type Department Care Team (Late st Contact Info) Description 06/06/2005 Outpatient Historical [facility] Support Serv. ([facility]t Cardiology[facility]) [address] 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
--- OUTSIDE RECORDS SUMMARY | 2024-10-29 10:18 | XMS_ITS | Encounter Summary ---
Author Organization [employer] Address [address] [place] [address] Care Team Providers Care Teaching Supervisor Name Role Phone Unavailable Primary Care Provider Unavailabl e Encounter Details Date Type Department Care Team (Late st Contact Info) Description 09/06/2006 Outpatient Historical [facility] Support Serv. (Ad[facility] Cardiology[facility]) [address] 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
--- OUTSIDE RECORDS SUMMARY | 2024-10-29 10:18 | XMS_ITS | Clinical Summary ---
Author Organization [facility] Address [address] [place] [address] Phone Care Team Providers Care Conservation Technician Name Role Phone Unavailable Primary Care [...]
--- OUTSIDE RECORDS SUMMARY | 2024-10-29 10:18 | XMS_ITS | Encounter Summary ---
Author Organization [facility] Address [address] [place] [address] Care Team Providers Care Hydrochloric Area Supervisor Name Role Phone Unavailable Primary Care Provider Unavailabl e Encounter Details Date Type Department Care Team (Late st Contact Info) Description 09/06/2006 Outpatient Historical [facility] Cardiovas and Thor Surg at [facility] [address] [facility] [place] [address] Elena Navarro MD [address] [place] [address] Social History Tobacco Use Types Packs/Day Years Used Date Smoking Tobacco: Never Assessed Sex and Gender Information Value Date Recorded Sex Assigned at Not on file 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
--- OUTSIDE RECORDS SUMMARY | 2024-10-29 10:18 | XMS_ITS | Encounter Summary ---
Author Organization [employer] Address 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 SPECIALIST JV Elena Navarro MD [facility] [address] [address] Patric Thomas MD [address] [facility] [address] [facility] [address] [place] [address] Coronary Atherosclerosis of [place] Coronary Artery (Primary Dx) Social History Tobacco Use Types Packs/Day Years Used Date Smoking Tobacco: Never Assessed Sex and Gender Information Value Date Recorded Sex Assigned at Not on file 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 Gender Identity Not on file Sexual Orientation [...] CARE TESTING Javier jadiel Performing Organization Address [facility] Co de Phone Number INTERFACE SYSTEM Refer [...] CARE TESTING Javier jadiel Performing Organization Address [facility] Phone Number INTERFACE SYSTEM Refer to clinic/hospital department * (ABNORMAL) POC GLUCOSE (09/09/2006 11:06 AM CDT) GLUCOSE POC 226(H) 65 - 99 mg/dL INTERFACE SYSTEM 09/09/2006 11:0 6 AM CDT Patric Thomas MD POINT OF CARE TESTING Javier jadiel Performing Organization Address [facility] Phone Number INTERFACE SYSTEM Refer to clinic/hospital department * (ABNORMAL) POC GLUCOSE (09/09/2006 7:38 AM CDT) GLUCOSE POC 169(H) 65 - 99 mg/dL INTERFACE SYSTEM 09/09/2006 7:38 AM CDT Patric Thomas MD POINT OF CARE TESTING Javier jadiel Performing Organization Address [facility] Phone Number INTERFACE SYSTEM Refer to [...] MC HEMATOLOGY ORDERABLES Edited Performing Organization Address [facility] Phone Number INTERFACE SYSTEM Refer to [...] MC HEMATOLOGY ORDERABLES Edited Performing Organization Address [facility] Phone Number INTERFACE SYSTEM Refer to clinic/hospital department * MAGNESIUM LEVEL (09/09/2006 4:40 AM CDT) MAGNESIUM 2.5 1.5 - 2.5 mg/dL INTERFACE SYSTEM 09/09/2006 4:40 AM CDT Patric Thomas MD CHEMISTRY ORDERABLES Edit ed Performing Organization Address [facility] Phone Number INTERFACE SYSTEM Refer to [...] and non- Americans is available on the [facility] Intranet at: [email or web address] Select: Lab Policies and Procedures Select: Reference Ranges - GFR 09/09/2006 4:40 AM CDT us Kori MC CHEMISTRY ORDERABLES Edited Performing Organization Address [facility] de Phone Number INTERFACE SYSTEM Refer to clinic/hospital department * (ABNORMAL) POC GLUCOSE (09/08/2006 8:21 PM CDT) GLUCOSE POC 245(H) 65 - 99 mg/dL INTERFACE SYSTEM 09/08/2006 8:21 PM CDT Patric Thomas MD POINT OF CARE TESTING Javieradair duvall Performing Organization Address [facility] de Phone Number INTERFACE SYSTEM Refer to clinic/hospital department * (ABNORMAL) POC GLUCOSE (09/08/2006 4:45 PM CDT) GLUCOSE POC 190(H) 65 - 99 mg/dL INTERFACE SYSTEM 09/08/2006 4:45 PM CDT Patric Thomas MD POINT OF CARE TESTING Javier jadiel Performing Organization Address [facility] de Phone Number INTERFACE SYSTEM Refer to clinic/hospital department * (ABNORMAL) POC GLUCOSE (09/08/2006 11:32 AM CDT) GLUCOSE POC 140(H) 65 - 99 mg/dL INTERFACE SYSTEM 09/08/2006 11:3 2 AM CDT Patric Thomas MD POINT OF CARE TESTING Javier jadiel Performing Organization Address [facility] Phone Number INTERFACE SYSTEM Refer to clinic/hospital department * (ABNORMAL) POC GLUCOSE (09/08/2006 9:35 AM CDT) GLUCOSE POC 119(H) 65 - 99 mg/dL INTERFACE SYSTEM 09/08/2006 9:35 AM CDT Patric Thomas MD POINT OF CARE TESTING Javier jadiel Performing Organization Address [facility] Phone Number INTERFACE SYSTEM Refer to clinic/hospital department * (ABNORMAL) POC GLUCOSE (09/08/2006 6:01 AM CDT) GLUCOSE POC 134(H) 65 - 99 mg/dL INTERFACE SYSTEM 09/08/2006 6:01 AM CDT Patric Thomas MD POINT OF CARE TESTING Javier jadiel Performing Organization Address [facility] Phone Number INTERFACE SYSTEM Refer to clinic/hospital department * (ABNORMAL) POC GLUCOSE (09/08/2006 4:30 AM CDT) GLUCOSE POC 129(H) 65 - 99 mg/dL INTERFACE SYSTEM 09/08/2006 4:30 AM CDT Patric Thomas MD POINT OF CARE TESTING Javier jadiel Performing Organization Address [facility] Phone Number INTERFACE SYSTEM Refer to [...] HEMATOLOGY ORDERABLES Edit ed Performing Organization Address [facility] de Phone Number INTERFACE SYSTEM Refer [...] HEMATOLOGY ORDERABLES Edit ed Performing Organization Address [facility] de Phone Number INTERFACE SYSTEM Refer [...] patients with mechanical heart valves or post [place]. Pediatric (12 years and under): 1.5 - [...] and non- Americans is available on the [facility] Intranet at: [email or web address] Select: Lab Policies and Procedures Select: Reference Ranges - GFR 09/08/2006 4:30 AM CDT Elena Navarro MD CHEMISTRY ORDERABLES Edite d Performing Organization Address [facility] de Phone Number INTERFACE SYSTEM Refer to clinic/hospital department * (ABNORMAL) CVR ONLY, CKMB/CK (09/08/2006 4:30 AM CDT) CKMB 3.8 <=6.7 ng/mL INTERFACE SYSTEM CKMB INTERP Negative INTERFAC E SYSTEM CK 232(H) 10 - 170 U/L INTERFACE SYSTEM CARDIAC RELATIVE INDEX 1.6 <=4.0 INTERFACE SYSTEM 09/08/2006 4:30 AM CDT Elena Navarro MD CHEMISTRY ORDERABLES Edite d Performing Organization Address [facility] de Phone Number INTERFACE SYSTEM Refer to clinic/hospital department * (ABNORMAL) POC GLUCOSE (09/07/2006 11:35 PM CDT) GLUCOSE POC 135(H) 65 - 99 mg/dL INTERFACE SYSTEM 09/07/2006 11:3 5 PM CDT Patric Thomas MD POINT OF CARE TESTING Javier jadiel Performing Organization Address [facility] de Phone Number INTERFACE SYSTEM Refer to clinic/hospital department * (ABNORMAL) POC GLUCOSE (09/07/2006 10:18 PM CDT) GLUCOSE POC 130(H) 65 - 99 mg/dL INTERFACE SYSTEM 09/07/2006 10:1 8 PM CDT Patric Thomas MD POINT OF CARE TESTING Javier jadiel Performing Organization Address [facility] Phone Number INTERFACE SYSTEM Refer to clinic/hospital department * MAGNESIUM LEVEL (09/07/2006 10:00 PM CDT) MAGNESIUM 2.1 1.5 - 2.5 mg/dL INTERFACE SYSTEM 09/07/2006 10:0 0 PM CDT Kori MC CHEMISTRY ORDERABLES Edited Performing Organization Address [facility] Phone Number INTERFACE SYSTEM Refer to clinic/hospital department * POTASSIUM LEVEL (09/07/2006 10:00 PM CDT) POTASSIUM 4.0 3.5 - 4.9 mmol/L INTERFACE SYSTEM 09/07/2006 10:0 0 PM CDT us Kori MC CHEMISTRY ORDERABLES Edited Performing Organization Address [facility] Phone Number INTERFACE SYSTEM Refer to clinic/hospital department * (ABNORMAL) CVR ONLY, CKMB/CK (09/07/2006 8:45 PM CDT) CKMB 5.2 <=6.7 ng/mL INTERFACE SYSTEM CKMB INTERP Negative INTERFAC E SYSTEM CK 260(H) 10 - 170 U/L INTERFACE SYSTEM CARDIAC RELATIVE INDEX 2.0 <=4.0 INTERFACE SYSTEM 09/07/2006 8:45 PM CDT Elena Navarro MD CHEMISTRY ORDERABLES Edite d Performing Organization Address [facility] Phone Number INTERFACE SYSTEM Refer to clinic/hospital department * POC GLUCOSE (09/07/2006 8:44 PM CDT) GLUCOSE POC 94 65 - 99 mg/dL INTERFACE SYSTEM 09/07/2006 8:44 PM CDT Patric Thomas MD POINT OF CARE TESTING Javier jadiel Performing Organization Address [facility] Phone Number INTERFACE SYSTEM Refer to clinic/hospital department * (ABNORMAL) POC GLUCOSE (09/07/2006 6:23 PM CDT) GLUCOSE POC 152(H) 65 - 99 mg/dL INTERFACE SYSTEM 09/07/2006 6:23 PM CDT Patric Thomas MD POINT OF CARE TESTING Javier jadiel Performing Organization Address [facility] Phone Number INTERFACE SYSTEM Refer to clinic/hospital department * (ABNORMAL) POC GLUCOSE (09/07/2006 4:48 PM CDT) GLUCOSE POC 191(H) 65 - 99 mg/dL INTERFACE SYSTEM 09/07/2006 4:48 PM CDT Patric Thomas MD POINT OF CARE TESTING Javier jadiel Performing Organization Address [facility] Phone Number INTERFACE SYSTEM Refer to clinic/hospital department * (ABNORMAL) POC GLUCOSE (09/07/2006 3:51 PM CDT) GLUCOSE POC 189(H) 65 - 99 mg/dL INTERFACE SYSTEM 09/07/2006 3:51 PM CDT Patric Thomas MD POINT OF CARE TESTING Javier jadiel Performing Organization Address [facility] Phone Number INTERFACE SYSTEM Refer to clinic/hospital department * POTASSIUM LEVEL (09/07/2006 3:45 PM CDT) POTASSIUM 4.1 3.5 - 4.9 mmol/L INTERFACE SYSTEM 09/07/2006 3:45 PM CDT us Elena Navarro MD CHEMISTRY ORDERABLES Edite d Performing Organization Address [facility] de Phone Number INTERFACE SYSTEM Refer to clinic/hospital department * (ABNORMAL) POC GLUCOSE (09/07/2006 2:45 PM CDT) GLUCOSE POC 226(H) 65 - 99 mg/dL INTERFACE SYSTEM 09/07/2006 2:45 PM CDT us Patric Thomas MD POINT OF CARE TESTING Javier jadiel Performing Organization Address [facility] de Phone Number INTERFACE SYSTEM Refer to clinic/hospital department * (ABNORMAL) POC GLUCOSE (09/07/2006 1:17 PM CDT) GLUCOSE POC 238(H) 65 - 99 mg/dL INTERFACE SYSTEM 09/07/2006 1:17 PM CDT us Patric Thomas MD POINT OF CARE TESTING Javier jadiel Performing Organization Address [facility] de Phone Number INTERFACE SYSTEM Refer [...] CHEMISTRY ORDERABLES Edit ed Performing Organization Address [facility] de Phone Number INTERFACE SYSTEM Refer [...] CHEMISTRY ORDERABLES Edite d Performing Organization Address [facility] de Phone Number INTERFACE SYSTEM Refer [...] HEMATOLOGY ORDERABLES Edit ed Performing Organization Address [facility] de Phone Number INTERFACE SYSTEM Refer [...] patients with mechanical heart valves or post [place]. Pediatric (12 years and under): 1.5 - [...] HEMATOLOGY ORDERABLES Edit ed Performing Organization Address [facility] de Phone Number INTERFACE SYSTEM Refer to clinic/hospital department * MAGNESIUM LEVEL (09/07/2006 10:00 AM CDT) MAGNESIUM 2.2 1.5 - 2.5 mg/dL INTERFACE SYSTEM 09/07/2006 10:0 0 AM CDT us Elena Navarro MD CHEMISTRY ORDERABLES Edite d Performing Organization Address [facility] Phone Number INTERFACE SYSTEM Refer to [...] and non- Americans is available on the [facility] Intranet at: [email or web address] Select: Lab Policies and Procedures Select: Reference Ranges - GFR 09/07/2006 10:0 0 AM CDT us Elena Navarro MD CHEMISTRY ORDERABLES Edite d Performing Organization Address [facility] de Phone Number INTERFACE SYSTEM Refer [...] CHEMISTRY ORDERABLES Edit ed Performing Organization Address [facility] de Phone Number INTERFACE SYSTEM Refer [...] CHEMISTRY ORDERABLES Edit ed Performing Organization Address City/State/[facility] Co de Phone Number INTERFACE SYSTEM Refer [...] CHEMISTRY ORDERABLES Edit ed Performing Organization Address City/[place]/[facility] Co de Phone Number INTERFACE SYSTEM Refer to clinic/hospital department * (ABNORMAL) POC GLUCOSE (09/07/2006 5:15 AM CDT) GLUCOSE POC 211(H) 65 - 99 mg/dL INTERFACE SYSTEM 09/07/2006 5:15 AM CDT Patric Thomas MD POINT OF CARE TESTING Javier jadiel Performing Organization Address [facility] Phone Number INTERFACE SYSTEM Refer to clinic/hospital department * (ABNORMAL) POC GLUCOSE (09/06/2006 9:43 PM CDT) GLUCOSE POC 186(H) 65 - 99 mg/dL INTERFACE SYSTEM 09/06/2006 9:43 PM CDT Patric Thomas MD POINT OF CARE TESTING Javier jadiel Performing Organization Address [facility] Phone Number INTERFACE SYSTEM Refer to [...] MD URINE ORDERABLES Edited Performing Organization Address [facility] Phone Number INTERFACE SYSTEM Refer to [...] MD URINE ORDERABLES Edited Performing Organization Address [facility] Phone Number INTERFACE SYSTEM Refer to clinic/hospital department * (ABNORMAL) POC GLUCOSE (09/06/2006 2:22 PM CDT) GLUCOSE POC 174(H) 65 - 99 mg/dL INTERFACE SYSTEM 09/06/2006 2:22 PM CDT Patric Thomas MD POINT OF CARE TESTING Javier jadiel Performing Organization Address [facility] Phone Number INTERFACE SYSTEM Refer to clinic/hospital department * POC ACTIVATED CLOTTING TIME (09/06/2006 1:28 PM CDT) ACT POC 110 Seconds INTERFACE SYSTEM Comment: Note sheath pull range change effective 10/07/2005. ACT value for sheath pull at [facility] has been established to be < or = to 1 40. (See also Nursing Procedures for sheath pull in related nursing areas) 09/06/2006 1:28 PM CDT Patric Thomas MD POINT OF CARE TESTING Javier jadiel Performing Organization Address [facility] Phone Number INTERFACE SYSTEM Refer to clinic/hospital department * POC ACTIVATED CLOTTING TIME (09/06/2006 10:13 AM CDT) ACT POC 602 Seconds INTERFACE SYSTEM Comment: Note sheath pull range change effective 10/07/2005. ACT value for sheath pull at [facility] has been established to be < or = to 1 40. (See also Nursing Procedures for sheath pull in related nursing areas) COMMENT, ACT POC Rpt @ no charge INTERFACE SYSTEM 09/06/2006 10:1 3 AM CDT us Patric Thomas MD POINT OF CARE TESTING Javieradair duvall Performing Organization Address [facility] Phone Number INTERFACE SYSTEM Refer to clinic/hospital department * POC ACTIVATED CLOTTING TIME (09/06/2006 10:13 AM CDT) ACT POC 755 Seconds INTERFACE SYSTEM Comment: Note sheath pull range change effective 10/07/2005. ACT value for sheath pull at [facility] has been established to be < or = to 1 40. (See also Nursing Procedures for sheath pull in related nursing areas) 09/06/2006 10:1 3 AM CDT Patric Thomas MD POINT OF CARE TESTING Javier jadiel Performing Organization Address [facility] Phone Number INTERFACE SYSTEM Refer to clinic/hospital department * (ABNORMAL) POC GLUCOSE (09/06/2006 7:44 AM CDT) COMMENT, GLU POC Notified RN INTERFACE SYSTEM GLUCOSE POC 231(H) 65 - 99 mg/dL INTERFACE SYSTEM 09/06/2006 7:44 AM CDT Patric Thomas MD POINT OF CARE TESTING Javier jadiel Performing Organization Address [facility] Phone Number INTERFACE SYSTEM Refer to clinic/hospital department documented in this encounter Visit Diagnoses Diagnosis Coronary atherosclerosis of [place] coronary artery- Primary documented in this encounter
--- OUTSIDE RECORDS SUMMARY | 2024-10-29 10:18 | XMS_ITS | Clinical Summary ---
Author Organization [facility] Address [address] [place] [address] Care Team Providers Care Business Information Analyst Name Role Phone Ashwin Lawler MD Primary Care Provider [phone] Allergies No known active allergies Medications metFORMIN [...] stent 04/05/2023 Coronary artery disease invo l[facility] [place] coronary artery of [place] heart without angina pectoris 08/24/2022 Cardiomyopathy, ischemic 08/24/2022 Encounters Date Type Department Care Team Description 10/14/[address] 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 Gender Identity Not on file Sexual Orientation Not on file Obstetrics History Last Filed Vital Signs Vital Sign Reading Time Taken Comments Blood Pressure 148/76 12/19/2023 8:32 AM CDT Pulse 77 12/19/2023 8:32 AM CDT Temperature 36.7 C (98.1 F) 03/10/2023 7:38 AM CHISEL MORTISER OPERATOR Respiratory Rate 21 03/10/2023 12:00 PM CHISEL MORTISER OPERATOR Oxygen Saturation 99% 12/19/2023 8:32 AM CDT [...] Screening 1972 Pneumococcal vaccine 65+ (1 of 2 - PCV) 1973 Zoster Vaccine (1 of 2) 2004 Abdominal Aortic Aneurysm (AAA) Screen 2019 Well Visit 65+ 2019 Covid-19 Vaccine ( - season) 2023, 11/21/2020 Fall Risk Assessment 03/10/2024 03/10/2023 Influenza Vaccine (#1) 2024 DTaP/Tdap/Td Vaccine (3 - Td or Tdap) 11/30/2030, 03/24/2020 Medical Devices Implanted Type Area Spraying Machine Operator Device Identifier Shelf Expiration Date Model / Serial / Lot [employer]smar Stent Drug Eluting S Megatron Mr [id number] - S0 - [id number] Implanted:Qty : 1 on 03/10/2023 by Sal Erazo MD at [facility] Stent Left: Circumflex Coronary Artery [employer]smar 10/30/2024 [id number] / 0 / [id number] [employer] Osmar Angio-Seal Vip 6fr Closere Device [id number] - S0 - [id number] Implanted:Qty : 1 on 03/10/2023 by Sal Erazo MD at [facility] Vascular Closure Device Right: Femoral [employer] Osmar 09/22/2023 [id number] / 0 / [id number] Procedures Procedure Name Priority Date/Time Associated Diagnosis Comments CARDIOLOGY DOCUMENT SCAN Routine 10/06/2024 2:[address] CHEST ABDOMEN PELVIS WO CONTRAST ED 12/10/2018 10:11 PM CDT from Last 3 Months or Most Recently Relevant to Health Maintenance Results * Cardiology Document Scan (10/06/2024 2:29 PM CDT) Anatomical Region Laterality Modality Other us Patric Thomas MD CV CARDIAC SERVICES PROC EDURES Final Result * CT Chest Abdomen Pelvis WO Contrast (12/10/2018 10:11 PM CDT) Anatomical Region Laterality Modality Body N/A Computed Tomogra phy 12/10/2018 10:2 8 PM CDT Addenda Addendum by David Thibodeaux MD on 04/08/2019 3:49 PM CHISEL MORTISER OPERATOR Follow up thyroid FNA completed 02-20-19 (scanned [...] Maintenance Insurance [employer] MEDICARE PPO [facility]ICARE [facility] AETNA SIGNATURE [employer] CHOICE MEDICARE PPO Advance Directives For more information, please contact: [phone] * Full Code (Latest Code Status on File) Date Activated Date Inactivated Comments 03/10/2023 10:16 AM 03/10/2023 5:27 PM Care Teams Business Information Analyst Relationship Specialty Start Date End Date Ashwin Lawler MD [address] [place] [id number] PCP - General Family Medicine 08/21/22
--- OUTSIDE RECORDS SUMMARY | 2024-10-29 10:18 | XMS_ITS | Referral Summary ---
Author Organization [facility] Address [address] [place] [address] Care Team Providers Care Hemodialysis Lab Technician Name Role Phone Ashwin Lawler MD Primary Care Provider [phone] Encounters Date Type Department Care Team Description 10/14/[address] [facility] Cardiology [address] [place] [address] Patric Thomas MD from Last 3 Months Allergies No known active allergies Medications metFORMIN [...] stent 04/05/2023 Coronary artery disease invo lving [place] coronary artery of [place] heart without angina pectoris 08/24/2022 Cardiomyopathy, ischemic [...] on file Legal Sex Male 1:57 AM VP RHEUMATOLOGY Gender Identity Not on file Sexual Orientation Not on file Last Filed Vital Signs Vital Sign Reading Time Taken Comments Blood Pressure 148/76 12/19/2023 8:32 AM CDT Pulse 77 12/19/2023 8:32 AM CDT Temperature 36.7 C (98.1 F) 03/10/2023 7:38 AM VP RHEUMATOLOGY Respiratory Rate 21 03/10/2023 12:00 PM VP RHEUMATOLOGY Oxygen Saturation 99% 12/19/2023 8:32 AM CDT Inhaled Oxygen Concentration - - Weight 81.4 kg (179 lb 6.4 oz) 12/19/2023 8:32 A M CDT Height 182.9 cm (6') 12/19/2023 8:32 AM CDT Body Mass Index 24.33 12/19/2023 8:32 AM CDT Plan of Treatment Not on file Medical Devices Implanted Type Area Financial Wellness Coach Device Identifier Shelf Expiration Date Model / Serial / Lot [employer] Stent Drug Eluting S Randy Lamb Mr 4.57s69la [id number] - S0 - [id number] Implanted:Qty : 1 on 03/10/2023 by Sal Erazo MD at [facility] Stent Left: Circumflex Coronary Artery [employer] [employer] 10/30/2024 [id number] / 0 / [id number] Angio-Seal Vip 6fr Closere Device [id number] - S0 - [id number] Implanted:Qty : 1 on 03/10/2023 by Sal Erazo MD at [facility] Vascular Closure Device Right: Femoral [employer] 09/22/2023 [id number] / 0 / [id number] Procedures Procedure Name Priority Date/Time Associated Diagnosis Comments CARDIOLOGY DOCUMENT SCAN Routine 10/06/2024 2:[address] CHEST ABDOMEN PELVIS WO CONTRAST ED 12/10/2018 10:11 PM CDT from Last 3 Months or Most Recently Relevant to Health Maintenance Results * Cardiology Document Scan (10/06/2024 2:29 PM CDT) Anatomical Region Laterality Modality Other Patric Thomas MD CV CARDIAC SERVICES PROC EDURES Final Result * CT Chest Abdomen Pelvis WO Contrast (12/10/2018 10:11 PM CDT) Anatomical Region Laterality Modality Body N/A Computed Tomogra phy 12/10/2018 10:2 8 PM CDT Addenda Addendum by David Thibodeaux MD on 04/08/2019 3:49 PM VP RHEUMATOLOGY Follow up thyroid FNA completed 02-20-19 (scanned [...] Maintenance Insurance [employer]IC[employer] PPO MEDICARE [facility] AETNA SIGNATURE [employer]ICE MEDICARE PPO Advance Directives For more information, please contact: [phone] * Full Code (Latest Code Status on File) Date Activated Date Inactivated Comments 03/10/2023 10:16 AM 03/10/2023 5:27 PM Care Teams Hemodialysis Lab Technician Relationship Specialty Start Date End Date Ashwin Lawler MD [address] [place] [id number] PCP - General Family Medicine 08/21/22
--- OUTSIDE RECORDS SUMMARY | 2024-10-29 10:18 | XMS_ITS | Encounter Summary ---
Author Organization [facility] Address [address] [place] [address] Care Team Providers Care Regional Wildlife Agent Name Role Phone Unavailable Primary Care Provider Unavailabl e Encounter Details Date Type Department Care Team (Latest Contact Info) Description 06/06/2005 Inpatient Historical HIS PATIENT IN A BED Patric Thomas MD [address] [address] [facility] ([facility]) (Primary Dx) Social History Tobacco Use Types Packs/Day Years Used Date Smoking Tobacco: Never Assessed Sex and Gender Information Value Date Recorded Sex Assigned at Not on file Legal Sex Male 4:42 AM 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 Gender Identity Not on file Sexual Orientation Not on file documented as of this encounter Plan of Treatment Not on file documented as of this encounter Procedures Procedure Name Priority Date/Time Associated Diagnosis Comments POC GLUCOSE Routine 06/09/2005 6:58 AM PULP AND 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 POC GLUCOSE Routine 06/08/2005 10:11 PM PULP AND 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 POC GLUCOSE Routine 06/08/2005 4:29 PM PULP AND 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 POC GLUCOSE Routine 06/08/2005 11:22 AM PULP AND 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 POC GLUCOSE Routine 06/08/2005 6:54 AM PULP AND 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 CBC WITH DIFFERENTIAL Routine 06/08/2005 5:05 AM PULP AND 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 CBC WITH DIFFERENTIAL Routine 06/08/2005 5:05 AM PULP AND 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 MAGNESIUM LEVEL Routine 06/08/2005 5:05 AM PULP AND 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 BASIC METABOLIC PANEL Routine 06/08/2005 5:05 AM PULP AND 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 POC GLUCOSE Routine 06/07/2005 9:14 PM PULP AND 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 CBC WITH DIFFERENTIAL Routine 06/07/2005 5:12 PM PULP AND 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 CBC WITH DIFFERENTIAL Routine 06/07/2005 5:12 PM PULP AND 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 POC GLUCOSE Routine 06/07/2005 4:33 PM PULP AND 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 POC GLUCOSE Routine 06/07/2005 11:44 AM PULP AND 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 CBC WITH DIFFERENTIAL Routine 06/07/2005 5:36 AM PULP AND 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 CBC WITH DIFFERENTIAL Routine 06/07/2005 5:36 AM PULP AND 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 BASIC METABOLIC PANEL Routine 06/07/2005 5:36 AM PULP AND 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 POC GLUCOSE Routine 06/07/2005 5:31 AM PULP AND 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 CK TOTAL, RELATIVE INDEX Routine 06/07/2005 4:10 AM PULP AND 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 CKMB W/REFLEX CK Routine 06/07/2005 4:10 AM PULP AND 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 TROPONIN (W/REFLEX CKMB/CK) Routine 06/07/2005 4:10 AM PULP AND 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 MAGNESIUM LEVEL Routine 06/07/2005 4:10 AM PULP AND 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 POC GLUCOSE Routine 06/07/2005 12:40 AM PULP AND 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 CK TOTAL, RELATIVE INDEX Routine 06/06/2005 11:30 PM PULP AND 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 CKMB W/REFLEX CK Routine 06/06/2005 11:3 0 PM PULP AND 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 CBC WITH DIFFERENTIAL Routine 06/06/2005 11:30 PM PULP AND 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 CBC WITH DIFFERENTIAL Routine 06/06/2005 11:30 PM PULP AND 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 MAGNESIUM LEVEL Routine 06/06/2005 11:30 PM PULP AND 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 LIPID PANEL Routine 06/06/2005 11:30 PM PULP AND 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 COMPREHENSIVE METABOLIC PANEL Routine 06/06/2005 11:30 PM PULP AND 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 POC GLUCOSE Routine 06/06/2005 8:43 PM PULP AND 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 documented in this encounter Results * (ABNORMAL) POC GLUCOSE (06/09/2005 6:58 AM PULP AND 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) GLUCOSE POC 214(H) 65 - 109 mg/dL INTERFACE SYSTEM 06/09/2005 6:58 AM PULP AND 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 Patric Thomas MD POINT OF CARE TESTING Fin al Result Performing Organization Address [facility] Phone Number INTERFACE SYSTEM Refer to clinic/hospital department * (ABNORMAL) POC GLUCOSE (06/08/2005 10:11 PM PULP AND 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) GLUCOSE POC 262(H) 65 - 109 mg/dL INTERFACE SYSTEM 06/08/2005 10:1 1 PM PULP AND 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 Patric Thomas MD POINT OF CARE TESTING Fin al Result Performing Organization Address [facility] Phone Number INTERFACE SYSTEM Refer to clinic/hospital department * (ABNORMAL) POC GLUCOSE (06/08/2005 4:29 PM PULP AND 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) GLUCOSE POC 268(H) 65 - 109 mg/dL INTERFACE SYSTEM 06/08/2005 4:29 PM PULP AND 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 Patric Thomas MD POINT OF CARE TESTING Fin al Result Performing Organization Address [facility] de Phone Number INTERFACE SYSTEM Refer to clinic/hospital department * (ABNORMAL) POC GLUCOSE (06/08/2005 11:22 AM PULP AND 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) GLUCOSE POC 253(H) 65 - 109 mg/dL INTERFACE SYSTEM 06/08/2005 11:2 2 AM PULP AND 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 Patric Thomas MD POINT OF CARE TESTING Fin al Result Performing Organization Address [facility] de Phone Number INTERFACE SYSTEM Refer to clinic/hospital department * (ABNORMAL) POC GLUCOSE (06/08/2005 6:54 AM PULP AND 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) GLUCOSE POC 214(H) 65 - 109 mg/dL INTERFACE SYSTEM 06/08/2005 6:54 AM PULP AND 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 Patric Thomas MD POINT OF CARE TESTING Fin al Result Performing Organization Address [facility] de Phone Number INTERFACE SYSTEM Refer to clinic/hospital department * CBC WITH DIFFERENTIAL (06/08/2005 5:05 AM PULP AND 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) NEUTROPHILS 57 45 - 70 % INTERFAC [...] 0.20 K/uL INTERFACE SYSTEM 06/08/2005 5:05 AM PULP AND 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 Patric Thomas MD HEMATOLOGY ORDERABLES Fin al Result Performing Organization Address [facility] de Phone Number INTERFACE SYSTEM Refer to clinic/hospital department * CBC WITH DIFFERENTIAL (06/08/2005 5:05 AM PULP AND 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) WBC 7.5 4.0 - 9.8 K/uL INTERFACE [...] 12.4 fL INTERFACE SYSTEM 06/08/2005 5:05 AM PULP AND 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 Patric Thomas MD HEMATOLOGY ORDERABLES Fin al Result Performing Organization Address [facility] Phone Number INTERFACE SYSTEM Refer to clinic/hospital department * MAGNESIUM LEVEL (06/08/2005 5:05 AM PULP AND 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) MAGNESIUM 1.9 1.5 - 2.5 mg/dL INTERFACE SYSTEM 06/08/2005 5:05 AM PULP AND 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 Patric Thomas MD CHEMISTRY ORDERABLES Freya l Result Performing Organization Address [facility] Phone Number INTERFACE SYSTEM Refer to clinic/hospital department * (ABNORMAL) BASIC METABOLIC PANEL (06/08/2005 5:05 AM PULP AND 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) GLUCOSE 218(H) 65 - 109 mg/dL INTERFACE [...] 30 mmol/L INTERFACE SYSTEM 06/08/2005 5:05 AM PULP AND 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 Patric Thomas MD CHEMISTRY ORDERABLES Freya l Result Performing Organization Address [facility] Phone Number INTERFACE SYSTEM Refer to clinic/hospital department * (ABNORMAL) POC GLUCOSE (06/07/2005 9:14 PM PULP AND 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) GLUCOSE POC 226(H) 65 - 109 mg/dL INTERFACE SYSTEM 06/07/2005 9:14 PM PULP AND 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 Patric Thomas MD POINT OF CARE TESTING Fin al Result Performing Organization Address [facility] de Phone Number INTERFACE SYSTEM Refer to clinic/hospital department * CBC WITH DIFFERENTIAL (06/07/2005 5:12 PM PULP AND 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) NEUTROPHILS 64 45 - 70 % INTERFAC [...] 0.20 K/uL INTERFACE SYSTEM 06/07/2005 5:12 PM PULP AND 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 Eric Carter HEMATOLOGY ORDERABLES Final Resu lt Performing Organization Address [facility] Phone Number INTERFACE SYSTEM Refer to clinic/hospital department * (ABNORMAL) CBC WITH DIFFERENTIAL (06/07/2005 5:12 PM PULP AND 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) WBC 8.5 4.0 - 9.8 K/uL INTERFACE [...] 12.4 fL INTERFACE SYSTEM 06/07/2005 5:12 PM PULP AND 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 Eric Carter HEMATOLOGY ORDERABLES Final Resu lt INTERFACE SYSTEM Refer to clinic/hospital department * (ABNORMAL) POC GLUCOSE (06/07/2005 4:33 PM PULP AND 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) GLUCOSE POC 218(H) 65 - 109 mg/dL INTERFACE SYSTEM 06/07/2005 4:33 PM PULP AND 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 Patric Thomas MD POINT OF CARE TESTING Fin al Result Performing Organization Address [facility] Co de Phone Number INTERFACE SYSTEM Refer to clinic/hospital department * (ABNORMAL) POC GLUCOSE (06/07/2005 11:44 AM PULP AND 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) GLUCOSE POC 271(H) 65 - 109 mg/dL INTERFACE SYSTEM 06/07/2005 11:4 4 AM PULP AND 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 Patric Thomas MD POINT OF CARE TESTING Fin al Result Performing Organization Address [facility] Co de Phone Number INTERFACE SYSTEM Refer to clinic/hospital department * (ABNORMAL) CBC WITH DIFFERENTIAL (06/07/2005 5:36 AM PULP AND 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) NEUTROPHILS 73(H) 45 - 70 % INTERFAC [...] 0.20 K/uL INTERFACE SYSTEM 06/07/2005 5:36 AM PULP AND 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 us Carmina Dick MD HEMATOLOGY ORDERABLES Final Resu lt INTERFACE SYSTEM Refer to clinic/hospital department * (ABNORMAL) CBC WITH DIFFERENTIAL (06/07/2005 5:36 AM PULP AND 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) WBC 9.7 4.0 - 9.8 K/uL INTERFACE [...] 12.4 fL INTERFACE SYSTEM 06/07/2005 5:36 AM PULP AND 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 us Carmina Dick MD HEMATOLOGY ORDERABLES Final Resu Performing Organization Address [facility] Phone Number INTERFACE SYSTEM Refer to clinic/hospital department * (ABNORMAL) BASIC METABOLIC PANEL (06/07/2005 5:36 AM PULP AND 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) GLUCOSE 194(H) 65 - 109 mg/dL INTERFACE [...] 30 mmol/L INTERFACE SYSTEM 06/07/2005 5:36 AM PULP AND 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 us Carmina Dick MD CHEMISTRY ORDERABLES Final Resul t Performing Organization Address [facility] Phone Number INTERFACE SYSTEM Refer to clinic/hospital department * (ABNORMAL) POC GLUCOSE (06/07/2005 5:31 AM PULP AND 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) GLUCOSE POC 197(H) 65 - 109 mg/dL INTERFACE SYSTEM 06/07/2005 5:31 AM PULP AND 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 Patric Thomas MD POINT OF CARE TESTING Fin al Result Performing Organization Address [facility] Phone Number INTERFACE SYSTEM Refer to clinic/hospital department * (ABNORMAL) CK TOTAL, RELATIVE INDEX (06/07/2005 4:10 AM PULP AND 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) CK 2,552(H) 10 - 170 U/L INTERFACE SYSTEM CARDIAC RELATIVE INDEX 10.2(H) <=4.0 INTERFACE SYSTEM 06/07/2005 4:10 AM PULP AND 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 Carmina Dick MD CHEMISTRY ORDERABLES Final Resul t Performing Organization Address [facility] Phone Number INTERFACE SYSTEM Refer to clinic/hospital department * (ABNORMAL) CKMB W/REFLEX CK (06/07/2005 4:10 AM PULP AND 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) CKMB 260.1(AA) <=6.7 ng/mL INTERFACE SYSTEM Comment:Results called to alka at 06/07/2005 5:15 AM and read back verified. CKMB INTERP See Below INTERFAC E SYSTEM Comment:Elevated CKMB,Consis tent with Myocardial Injury. 06/07/2005 4:10 AM PULP AND 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 Carmina Dick MD CHEMISTRY ORDERABLES Final Resul t Performing Organization Address [facility] Phone Number INTERFACE SYSTEM Refer to clinic/hospital department * MAGNESIUM LEVEL (06/07/2005 4:10 AM PULP AND 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) MAGNESIUM 1.8 1.5 - 2.5 mg/dL INTERFACE SYSTEM 06/07/2005 4:10 AM PULP AND 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 Patric Thomas MD CHEMISTRY ORDERABLES Freya l Result Performing Organization Address [facility] Phone Number INTERFACE SYSTEM Refer to clinic/hospital department * (ABNORMAL) TROPONIN (W/REFLEX CKMB/CK) (06/07/2005 4:10 AM PULP AND 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) TROPONIN T 5.35(AA) <=0.03 ng/mL INTERFACE SYSTEM Comment:Results called to Lyndsay fernandes at 06/07/2005 4:55 AM and read back verified. TROPONIN T INTERP See Below INTERFACE SYSTEM Comment:Elevated Troponin-T, Consistent with Myocardial Injury 06/07/2005 4:10 AM PULP AND 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 Carmina Dick MD CHEMISTRY ORDERABLES Final Resul t Performing Organization Address [facility] Phone Number INTERFACE SYSTEM Refer to clinic/hospital department * (ABNORMAL) POC GLUCOSE (06/07/2005 12:40 AM PULP AND 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) GLUCOSE POC 226(H) 65 - 109 mg/dL INTERFACE SYSTEM 06/07/2005 12:4 0 AM PULP AND 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 Patric Thomas MD POINT OF CARE TESTING Fin al Result Performing Organization Address [facility] Phone Number INTERFACE SYSTEM Refer to clinic/hospital department * (ABNORMAL) CK TOTAL, RELATIVE INDEX (06/06/2005 11:30 PM PULP AND 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) CK 3,063(H) 10 - 170 U/L INTERFACE SYSTEM CARDIAC RELATIVE INDEX 12.1(H) <=4.0 INTERFACE SYSTEM 06/06/2005 11:3 0 PM PULP AND 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 Carmina Dick MD CHEMISTRY ORDERABLES Final Resul t Performing Organization Address [facility] Phone Number INTERFACE SYSTEM Refer to clinic/hospital department * (ABNORMAL) CKMB W/REFLEX CK (06/06/2005 11:30 PM PULP AND 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) CKMB 369.5(AA) <=6.7 ng/mL INTERFACE SYSTEM Comment: Results called to Hiwot at 06/07/2005 7:19 AM and read back verified. Previous specimen used; approved by floor. , (2330 from 06/06/05) CKMB INTERP See Below INTERFAC E SYSTEM Comment:Elevated CKMB,Consis tent with Myocardial Injury. 06/06/2005 11:3 0 PM PULP AND 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 Carmina Dick MD CHEMISTRY ORDERABLES Final Resul t Performing Organization Address [facility] Phone Number INTERFACE SYSTEM Refer to clinic/hospital department * MAGNESIUM LEVEL (06/06/2005 11:30 PM PULP AND 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) MAGNESIUM 1.9 1.5 - 2.5 mg/dL INTERFACE SYSTEM 06/06/2005 11:3 0 PM PULP AND 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 Patric Thomas MD CHEMISTRY ORDERABLES Freya l Result Performing Organization Address [facility] Phone Number INTERFACE SYSTEM Refer to clinic/hospital department * (ABNORMAL) CBC WITH DIFFERENTIAL (06/06/2005 11:30 PM PULP AND 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) NEUTROPHILS 83(H) 45 - 70 % INTERFAC [...] K/uL INTERFACE SYSTEM 06/06/2005 11:3 0 PM PULP AND 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 Patric Thomas MD HEMATOLOGY ORDERABLES Fin al Result Performing Organization Address [facility] Phone Number INTERFACE SYSTEM Refer to clinic/hospital department * (ABNORMAL) CBC WITH DIFFERENTIAL (06/06/2005 11:30 PM PULP AND 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) WBC 14.5(H) 4.0 - 9.8 K/uL INTERFACE [...] fL INTERFACE SYSTEM 06/06/2005 11:3 0 PM PULP AND 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 Patric Thomas MD HEMATOLOGY ORDERABLES Fin al Result INTERFACE SYSTEM Refer to clinic/hospital department * LIPID PANEL (06/06/2005 11:30 PM PULP AND 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) Pathologist [facility] LIPID PANEL COMMENT See below INTERFACE SYSTEM [...] for risk classifications. 06/06/2005 11:3 0 PM PULP AND 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 us Carmina Dick MD CHEMISTRY ORDERABLES Final Resul t Performing Organization Address [facility] Phone Number INTERFACE SYSTEM Refer to clinic/hospital department * (ABNORMAL) COMPREHENSIVE METABOLIC PANEL (06/06/2005 11:30 PM PULP AND 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) GLUCOSE 225(H) 65 - 109 mg/dL INTERFACE [...] mmol/L INTERFACE SYSTEM 06/06/2005 11:3 0 PM PULP AND 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 us Carmina Dick MD CHEMISTRY ORDERABLES Final Resul t Performing Organization Address [facility] de Phone Number INTERFACE SYSTEM Refer to clinic/hospital department * (ABNORMAL) POC GLUCOSE (06/06/2005 8:43 PM PULP AND 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) GLUCOSE POC 247(H) 65 - 109 mg/dL INTERFACE SYSTEM 06/06/2005 8:43 PM PULP AND 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 us Patric Thomas MD POINT OF CARE TESTING Ceferino al Result INTERFACE SYSTEM Refer to clinic/hospital department documented in this encounter Visit Diagnoses Diagnosis Acute myocardial infarction of other anterior wall, initial episode of care ([facility])- Primary Acute myocardial infarction of other anterior wall, initial episode of care documented in this encounter
== END 2024-10-29 10:06 | disposition home or self-care (01) ==
PROVIDERS: PCP Family Medicine; Visit Provider Orthopaedic Surgery
DX: M79.605 Pain in left leg (principal)
CPT/HCPCS: 93970

== ENCOUNTER 2024-11-19 07:03 | Outpatient (RCR) | payer MEDICARE, SELFPAY ==
--- NOTE | 2024-09-20 09:26 | PM.IMHP ---
H&P: HPI History of Present Illness Date/Time: 09/20/24 09:26 Chief Complaint: Left Calcaneus Ulcer Narrative: 69-year-old male returns to the [facility] 3 weeks status post I&D of the left calcaneus ulcer for wound VAC dressing change and re-evaluation. Patient denies fever, chills, night sweats, nausea, vomiting or diarrhea. He is tolerating home health for dressing changes well. No new concerns today. Reports well-controlled blood glucose levels at this time. 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 GERD (gastroesophageal reflux disease) Carpal tunnel syndrome Surgical History Surgical History History of incision and drainage Complex I&D Right foot infected diabetic foot ulcer measuring approximately 5x4cm. on 12/19/21 Status post debridement (12/2020) Right foot abscess, osteomyelitis. History of coronary artery stent placement History of cardiac catheterization History of colonoscopy with polypectomy History of repair of hiatal hernia (2001) History of coronary artery bypass graft History of carpal tunnel release History of arthroscopy of right knee History of hernia repair (2019) Finger amputee Right 2nd finger secondary to crush injury. History of right hemicolectomy with ileocolic anastomsis in 2019 Family History Family History Sibling Family history of malignant neoplasm Father Family history of chronic obstructive pulmonary disease Hypertension Heart disease Mother Hypertension Cancer Sibling Cancer Sibling Cancer Sibling Cancer Social History Social History Social History: The patient is and lives with his and 1 son in [place]. They have 4 children. 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 No alcohol or illicit substance abuse. Surrogate medical decision maker: Tash Orantes, spouse. Code status: Full code. Years smoked: 10 Smoking status: Former smoker Alcohol intake: never Substance use: never Substance use type: does not use Do You Feel Safe in your Home?: Yes Lack of Transportation: No Lack of Food: Never True Current Housing: I Have Housing Concerned About Future Housing: No Difficulty Paying Gas/Electric Bills: No Difficulty Paying for Meds: No Currently Unemployed: No Education: High School Diploma/GED Difficulty w/ Childcare or Family Care: No Living arrangements: with family Occupation/Education: retired Gender identity (if verbalized by the patient): Male Sexual Orientation (if Verbalized by the Patient): Straight or Heterosexual Spiritual care concerns: No Meds Home Medications and Allergies Home Medications ?Medication ?Instructions ?Recorded ?Confirmed ?Type Jardiance 10 mg tablet 10 mg PO DAILY 30 days #30 tabs 06/18/24 08/27/24 Rx (empagliflozin) Lantus Solostar U-100 Insulin 100 10 unit (0.1 mL) subcut QPM #15 mL 06/18/24 08/27/24 Rx unit/mL (3 mL) subcutaneous pen (insulin glargine) acetaminophen 500 mg tablet 1,000 mg PO Q6H PRN pain 08/27/24 08/27/24 History (Acetaminophen Extra Strength) meclizine 50 mg tablet (Antivert) 50 mg PO BID 08/27/24 08/27/24 History metformin 500 mg tablet 500 mg PO BID 08/27/24 08/27/24 History amoxicillin 875 mg-potassium 1 tablet PO Q12H 3 weeks #42 tabs 09/02/24 Rx clavulanate 125 mg tablet sulfamethoxazole 800 1 tablet PO Q12HR 21 days #42 tabs 09/02/24 Rx mg-trimethoprim 160 mg tablet lisinopril 5 mg tablet 5 mg PO QAM #30 tabs 09/03/24 Rx polyethylene glycol 3350 17 gram 17 g PO QAM #30 ea 09/03/24 Rx oral powder packet (Miralax) 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 sensor (Dexcom G7 #3 ea 09/13/24 Rx Sensor device) 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,enterprise integration architect,cont #1 ea 09/13/24 Rx (Dexcom G7 Orchestra Leader) glucagon 1 mg/0.2 mL subcutaneous 1 mg (0.2 mL) subcut ONCE PRN 09/13/24 Rx auto-injector (Gvoke HypoPen hypoglycemia #0.2 mL 1-Pack) Allergies Allergy/AdvReac Type Severity Reaction Status Date / Time No Known Allergies Allergy Verified 08/23/24 13:10 Exam Const: General: comfortable and no acute distress Orientation/consciousness: oriented to person, oriented to place, oriented to time and No confusion HENMT: Head: normal to inspection, normocephalic and atraumatic Mouth: Yes moist mucous membranes Eyes: General: appearance normal, both eyes and all related structures Conjunctivae: conjunctivae normal Sclera: sclerae normal Neck: Neck: supple and no JVD Resp: Effort & Inspection: normal respiratory effort Cardio: Rate: regular rate Rhythm: regular rhythm GI: Inspection: non-distended GI Palp: Yes Soft to palpation and No Tenderness to palpation present (GI) Skin: General skin exam: no rashes or lesions noted Neuro: General: gait normal Cognition (Neuro): normal cognition Speech: normal speech Extrem: Right upper extremity: normal to inspection Left upper extremity: normal to inspection Right lower extremity: ankle Details: normal to inspection, abnormal ROM Details: with range as follows (ankle dorsiflexion -10 degrees, plantar flexion 40?, inversion 15?, eversion 15?) and other ( good stability all directions); no tenderness, no swelling and no ecchymosis and foot Details: abnormal to inspection ( extension deformity of the 3rd and 4th toe) Details: other ( 1 x 1 cm ulcer plantar forefoot under the 4th metatarsal head surrounding callus. No surrounding erythema. No drainage.), abnormal ROM of toe ( hallux MTP dorsiflexion 40, plantar flexion 20?), vascular exam Details: dorsalis pedis pulse present (decreased, faintly palpable ) and normal capillary refill, tendon exam Details: active flexion abnormal and active extension abnormal, motor-sensory exam Details: two point discrimination abnormal Location: in all toes and light-touch abnormal Location: in all toes and other (Hallux metatarsophalangeal motion 20? dorsiflexion/10? plantar flexion) Left lower extremity: ankle Details: normal to inspection and abnormal ROM Details: with range as follows (ankle dorsiflexion -10 degrees, plantar flexion 40?, inversion 15?, eversion 15?); no tenderness and no swelling and foot Details: normal capillary refill, tenderness, abnormal ROM of toe, warmth, edema, vascular exam (2+DP pulse, good cap refill all toes), tendon exam active flexion abnormal of the great toe and active extension abnormal of the great toe and motor-sensory exam two point discrimination abnormal and light-touch abnormal in all toes; no crepitus Other: Wound on the plantar aspect of the right 4th MTP joint measures 1.0x1.0x0.2 cm. 100% red/pink wound bed. No signs of active infection. Wound on the calcaneus of the left heel measures 7.5x4.5x1.0 cm, 90% red/pink, 10% yellow. Psych: Mental Status: mental status grossly normal Affect: normal affect Assessment and Plan Assessment and plan (1) Heel ulcer due to DM: Qualifiers: Diabetes mellitus type: type 2 Laterality: left Non-pressure ulcer stage: with necrosis of muscle Qualified Code(s): E11.621 - Type 2 diabetes mellitus with foot ulcer; L97.423 - Non-pressure chronic ulcer of left heel and midfoot with necrosis of muscle Code(s): E11.621 - Type 2 diabetes mellitus with foot ulcer; L97.409 - Non-pressure chronic ulcer of unspecified heel and midfoot with unspecified severity Status: Acute Assessment and Plan: History and exam reviewed with the patient. Wound VAC removed. Wound appears viable. Small amount of debridement required. See procedure note for details. Continue oral antibiotics to completion. Continue wound VAC. Dressing changes 3 times weekly. Follow-up in 2 weeks for re-evaluation. Would eventually benefit from graft application however most recent hemoglobin A1c was significantly elevated. Would need improvement hemoglobin A1c prior to being a candidate for graft application. 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 Reviewed signs and symptoms of infection including fever, chills, night sweats, nausea, vomiting, diarrhea, changes to the wound bed or purulent drainage to report to the ED immediately. Patient verbalized understanding. Debridement/Burn/Wound Pre Procedure Consent was obtained, Procedures/risks were explained, Questions were answered, Correct patient identified and Correct side and site confirmed Episode Return Visit Area was prepped and draped using sterile technique?: Yes Ulcer/Wound Debridement, skin, first 20 sq cm or less: Yes Left Wound Location: heel Dressing Applied antibiotic ointment and Applied sterile dressing Post Procedure Patient tolerated the procedure well?: Tolerated procedure well
--- NOTE | 2024-10-04 10:07 | PM.IMHP ---
H&P: HPI History of Present Illness Date/Time: 10/04/24 10:07 Chief Complaint: Left heel ulcer Narrative: 69-year-old male returns to the [facility] 5 weeks status post I&D of the left calcaneus ulcer for wound VAC dressing change and re-evaluation. Patient denies fever, chills, night sweats, nausea, vomiting or diarrhea. He is tolerating home health for dressing changes. complains of low blood sugar in the morning. Noted blood sugar in the 50s this morning. Patient ate breakfast and drank juice. Now in the 130s and 40s. Has noted increased swelling In the left leg over the past 2 days and somewhat in the right leg. Does not report any increase in activity. is said that she tries to get him to sit and elevate. Review of Systems Constitutional: Constitutional: Denies fever(s) Eyes: Eyes: Denies blurry vision ENT: Reports Normal hearing present Cardiovascular: Cardiovascular: Denies chest pain and Denies dyspnea Respiratory: Respiratory: Denies dyspnea and Denies wheezing Gastrointestinal: Gastrointestinal: Denies abdominal pain Genitourinary: Genitourinary: Denies urinary urgency Musculoskeletal: Musculoskeletal: Reports as per HPI and Denies numbness Integumentary/Breasts: Skin/Breast: Denies changing lesions and Denies sores Neurologic: Reports Normal hearing present, Denies behavioral changes, Denies confusion, Denies numbness and Denies convulsions Psychiatric: Psychiatric: Denies behavioral changes, Denies confusion and Denies hallucinations Endocrine: Endocrine: Denies heat intolerance Hematologic/Lymphatic: Hematologic/Lymphatic: Denies easy bleeding Allergic/Immunologic: Allergic/Immunologic: Denies wheezing [facility] Past Medical History Medical History (Updated 09/27/24 @ 10:30 by Ashwin Lawler MD) Non-pressure chronic ulcer of other part of right foot with necrosis of muscle Heel ulcer due to DM History of colon cancer 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 GERD (gastroesophageal reflux disease) Carpal tunnel syndrome Surgical History Surgical History History of incision and drainage Complex I&D Right foot infected diabetic foot ulcer measuring approximately 5x4cm. on 12/19/21 Status post debridement (12/2020) Right foot abscess, osteomyelitis. History of coronary artery stent placement History of cardiac catheterization History of colonoscopy with polypectomy History of repair of hiatal hernia (2001) History of coronary artery bypass graft History of carpal tunnel release History of arthroscopy of right knee History of hernia repair (2018) Finger amputee Right 2nd finger secondary to crush injury. History of right hemicolectomy with ileocolic anastomsis in 2019 Family History Family History Sibling Family history of malignant neoplasm Father Family history of chronic obstructive pulmonary disease Hypertension Heart disease Mother Hypertension Cancer Sibling Cancer Sibling Cancer Sibling Cancer Social History Social History Social History: The patient is and lives with his and 1 son in [place]. They have 4 children. 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 No alcohol or illicit substance abuse. Surrogate medical decision maker: Tash Orantes, spouse. Code status: Full code. Years smoked: 10 Smoking status: Former smoker Alcohol intake: never Substance use: never Substance use type: does not use Do You Feel Safe in your Home?: Yes Lack of Transportation: No Lack of Food: Never True Current Housing: I Have Housing Concerned About Future Housing: No Difficulty Paying Gas/Electric Bills: No Difficulty Paying for Meds: No Currently Unemployed: No Education: High School Diploma/GED Difficulty w/ Childcare or Family Care: No Living arrangements: with family Occupation/Education: retired Gender identity (if verbalized by the patient): Male Sexual Orientation (if Verbalized by the Patient): Straight or Heterosexual Spiritual care concerns: No Meds Home Medications and Allergies Home Medications ?Medication ?Instructions ?Recorded ?Confirmed ?Type Jardiance 10 mg tablet 10 mg PO DAILY 30 days #30 tabs 06/18/24 09/27/24 Rx (empagliflozin) acetaminophen 500 mg tablet 1,000 mg PO Q6H PRN pain 08/27/24 09/27/24 History (Acetaminophen Extra Strength) meclizine 50 mg tablet (Antivert) 50 mg PO BID 08/27/24 09/27/24 History metformin 500 mg tablet 500 mg PO BID 08/27/24 09/27/24 History lisinopril 5 mg tablet 5 mg PO QAM #30 tabs 09/03/24 09/27/24 Rx polyethylene glycol 3350 17 gram 17 g PO QAM #30 ea 09/03/24 09/27/24 Rx oral powder packet (Miralax) 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 sensor (Dexcom G7 #3 ea 09/13/24 09/27/24 Rx Sensor device) 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,armature and rotor winder,cont #1 ea 09/13/24 09/27/24 Rx (Dexcom G7 Media Relations Associate) glucagon 1 mg/0.2 mL subcutaneous 1 mg (0.2 mL) subcut ONCE PRN 09/13/24 09/27/24 Rx auto-injector (Gvoke HypoPen hypoglycemia #0.2 mL 1-Pack) insulin glargine 100 unit/mL (3 18 unit (0.18 mL) subcut QPM #15 mL 09/27/24 Rx mL) subcutaneous pen (Lantus Solostar U-100 Insulin) rosuvastatin 5 mg tablet 5 mg PO DAILY #90 tabs 10/03/24 Rx Allergies Allergy/AdvReac Type Severity Reaction Status Date / Time No Known Allergies Allergy Verified 09/27/24 09:35 Exam Const: General: comfortable and no acute distress Orientation/consciousness: oriented to person, oriented to place, oriented to time and No confusion HENMT: Head: normal to inspection, normocephalic and atraumatic Mouth: Yes moist mucous membranes Neck: Neck: supple and no JVD Resp: Effort & Inspection: normal respiratory effort Cardio: Rate: regular rate Rhythm: regular rhythm GI: Inspection: non-distended GI Palp: Yes Soft to palpation and No Tenderness to palpation present (GI) Neuro: Cognition (Neuro): normal cognition Speech: normal speech Extrem: Right upper extremity: normal to inspection Left upper extremity: normal to inspection Right lower extremity: ankle Details: abnormal to inspection, swelling ( 3+) Details: diffusely, abnormal ROM Details: with range as follows (ankle dorsiflexion -10 degrees, plantar flexion 40?, inversion 15?, eversion 15?) and other ( good stability all directions); no tenderness and no ecchymosis and foot Details: abnormal to inspection ( extension deformity of the 3rd and 4th toe) Details: other ( 1 x 1 cm ulcer plantar forefoot under the 4th metatarsal head surrounding callus. No surrounding erythema. No drainage.), abnormal ROM of toe ( hallux MTP dorsiflexion 40, plantar flexion 20?), vascular exam Details: abnormal capillary refill Location: of all toes; dorsalis pedis pulse absent and posterior tibial pulse absent, tendon exam Details: active flexion abnormal and active extension abnormal, motor-sensory exam Details: two point discrimination abnormal Location: in all toes and light-touch abnormal Location: in all toes and other (Hallux metatarsophalangeal motion 20? dorsiflexion/10? plantar flexion) Left lower extremity: ankle Details: normal to inspection and abnormal ROM Details: with range as follows (ankle dorsiflexion -10 degrees, plantar flexion 40?, inversion 15?, eversion 15?); no tenderness and no swelling and foot Details: tenderness, abnormal ROM of toe, warmth, edema Location: of the dorsal foot ( 4+), vascular exam Details: abnormal capillary refill Location: of all toes; dorsalis pedis pulse absent and posterior tivial pulse absent, tendon exam active flexion abnormal of the great toe and active extension abnormal of the great toe and motor-sensory exam two point discrimination abnormal and light-touch abnormal in all toes; abnormal capillary refill and no crepitus Other: Wound on the plantar aspect of the right 4th MTP joint measures 1.0x1.0x0.2 cm. 100% red/pink wound bed. No signs of active infection. Wound on the calcaneus of the left heel measures 7.5x4.5x1.0 cm, 90% red/pink, 10% yellow. serous drainage Psych: Mental Status: mental status grossly normal Affect: normal affect Assessment and Plan Assessment and plan (1) Heel ulcer due to DM: Qualifiers: Diabetes mellitus type: type 2 Laterality: left Non-pressure ulcer stage: with necrosis of muscle Qualified Code(s): E11.621 - Type 2 diabetes mellitus with foot ulcer; L97.423 - Non-pressure chronic ulcer of left heel and midfoot with necrosis of muscle Code(s): E11.621 - Type 2 diabetes mellitus with foot ulcer; L97.409 - Non-pressure chronic ulcer of unspecified heel and midfoot with unspecified severity Status: Acute Assessment and Plan: History and exam reviewed with the patient. Wound VAC removed. Wound appears viable. has completed antibiotics. Severe swelling in the left leg and moderate swelling in the right leg which is new over the past 2 days. Jimmie erythema medial left foot and dorsum. Concern for vascular or cardiac etiology. Recommend proceed to the emergency room for evaluation and workup. Discussed with primary physician, Dr. Lawler who agrees with plan. Sterile gauze dressing placed to left heel in the interim. (2) Type 2 diabetes mellitus with hyperglycemia: Qualifiers: Diabetes mellitus [facility] insulin use: with ad terminal makeup operator use Qualified Code(s): E11.65 - Type 2 diabetes mellitus with hyperglycemia; Z79.4 - group home (current) use of insulin Code(s): E11.65 - Type 2 diabetes mellitus with hyperglycemia Status: Acute Assessment and Plan: Discussed importance of proper nutrition, diabetic diet and medication compliance for optimal healing. Reviewed signs and symptoms of infection including fever, chills, night sweats, nausea, vomiting, diarrhea, changes to the wound bed or purulent drainage to report to the ED immediately. Patient verbalized understanding.
--- NOTE | 2024-10-29 11:23 | PM.IMHP ---
H&P: HPI History of Present Illness Date/Time: 10/29/24 11:23 <DEE Rodriguez - Last Filed: 10/29/24 11:27> Chief Complaint: Left Heel Ulcer <DEE Rodriguez - Last Filed: 10/29/24 11:27> Narrative: 69-year-old male returns to the [facility] 8 weeks, 3 days status post I&D of the left calcaneus ulcer for wound VAC dressing change and re-evaluation. Patient denies fever, chills, night sweats, nausea, vomiting or diarrhea. He is tolerating home health for dressing changes. Has noted increased pain in the left calf and inner thigh. Does not report any increase in activity. is said that she tries to get him to sit and elevate. <DEE Rodriguez - Last Filed: 10/29/24 11:27> Review of Systems Constitutional: Constitutional: Denies fever(s) <DEE Rodriguez - Last Filed: 10/29/24 11:27> Eyes: Eyes: Denies blurry vision <DEE Rodriguez - Last Filed: 10/29/24 11:27> ENT: Reports Normal hearing present <DEE Rodriguez - Last Filed: 10/29/24 11:27> Cardiovascular: Cardiovascular: Denies chest pain and Denies dyspnea <DEE Rodriguez - Last Filed: 10/29/24 11:27> Respiratory: Respiratory: Denies dyspnea and Denies wheezing <DEE Rodriguez - Last Filed: 10/29/24 11:27> Gastrointestinal: Gastrointestinal: Denies abdominal pain <DEE Rodriguez - Last Filed: 10/29/24 11:27> Genitourinary: Genitourinary: Denies urinary urgency <DEE Rodriguez - Last Filed: 10/29/24 11:27> Musculoskeletal: Musculoskeletal: Reports as per HPI and Denies numbness <DEE Rodriguez - Last Filed: 10/29/24 11:27> Integumentary/Breasts: Skin/Breast: Denies changing lesions and Denies sores <DEE Rodriguez - Last Filed: 10/29/24 11:27> Neurologic: Reports Normal hearing present, Denies behavioral changes, Denies confusion, Denies numbness and Denies convulsions <DEE Rodriguez - Last Filed: 10/29/24 11:27> Psychiatric: Psychiatric: Denies behavioral changes, Denies confusion and Denies hallucinations <DEE Rodriguez - Last Filed: 10/29/24 11:27> Endocrine: Endocrine: Denies heat intolerance <SOLIS RodriguezP - Last Filed: 10/29/24 11:27> Hematologic/Lymphatic: Hematologic/Lymphatic: Denies easy bleeding <DEE Rodriguez - Last Filed: 10/29/24 11:27> Allergic/Immunologic: Allergic/Immunologic: Denies wheezing <DEE Rodriguez - Last Filed: 10/29/24 11:27> [facility] Past Medical History Medical History: Medical History Calf pain Non-pressure chronic ulcer of other part of right foot with necrosis of muscle Heel ulcer due to DM History of colon cancer 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 GERD (gastroesophageal reflux disease) Carpal tunnel syndrome <DEE Rodriguez - Last Filed: 10/29/24 11:27> Surgical History Surgical History: Surgical History History of incision and drainage Complex I&D Right foot infected diabetic foot ulcer measuring approximately 5x4cm. on 12/19/21 Status post debridement (12/2020) Right foot abscess, osteomyelitis. History of coronary artery stent placement History of cardiac catheterization History of colonoscopy with polypectomy History of repair of hiatal hernia (2002) History of coronary artery bypass graft History of carpal tunnel release History of arthroscopy of right knee History of hernia repair (2019) Finger amputee Right 2nd finger secondary to crush injury. History of right hemicolectomy with ileocolic anastomsis in 2019 <DEE Rodriguez - Last Filed: 10/29/24 11:27> Family History Family History: Family History Sibling Family history of malignant neoplasm Father Family history of chronic obstructive pulmonary disease Hypertension Heart disease Mother Hypertension Cancer Sibling Cancer Sibling Cancer Sibling Cancer <DEE Rodriguez - Last Filed: 10/29/24 11:27> Social History Social History: Social History Social History: The patient is and lives with his and 1 son in [place]. They have 4 children. 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 No alcohol or illicit substance abuse. Surrogate medical decision maker: Tash Orantes, spouse. Code status: Full code. Years smoked: 10 Smoking status: Former smoker Alcohol intake: never Substance use: never Substance use type: does not use Do You Feel Safe in your Home?: Yes Lack of Transportation: No Lack of Food: Never True Current Housing: I Have Housing Concerned About Future Housing: No Difficulty Paying Gas/Electric Bills: No Difficulty Paying for Meds: No Currently Unemployed: No Education: High School Diploma/GED Difficulty w/ Childcare or Family Care: No Living arrangements: with family Occupation/Education: retired Gender identity (if verbalized by the patient): Male Sexual Orientation (if Verbalized by the Patient): Straight or Heterosexual Spiritual care concerns: No <DEE Rodriguez - Last Filed: 10/29/24 11:27> Meds Home Medications and Allergies Home medications: Home Medications ?Medication ?Instructions ?Recorded ?Confirmed ?Type Jardiance 10 mg tablet 10 mg PO DAILY 30 days #30 tabs 06/18/24 10/04/24 Rx (empagliflozin) acetaminophen 500 mg tablet 1,000 mg PO Q6H PRN pain 08/27/24 10/04/24 History (Acetaminophen Extra Strength) meclizine 50 mg tablet (Antivert) 50 mg PO BID 08/27/24 10/04/24 History metformin 500 mg tablet 500 mg PO BID 08/27/24 10/04/24 History 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 sensor (Dexcom G7 #3 ea 09/13/24 10/04/24 Rx Sensor device) 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,therapeutic radiologist,cont #1 ea 09/13/24 10/04/24 Rx (Dexcom G7 Compressor Battery Pellets) rosuvastatin 5 mg tablet 5 mg PO DAILY #90 tabs 10/03/24 10/04/24 Rx carvedilol 12.5 mg tablet (Coreg) 12.5 mg PO Q12HR #60 tabs 10/06/24 Rx insulin glargine 100 unit/mL (3 10 unit (0.1 mL) subcut QPM #15 mL 10/06/24 10/04/24 Rx mL) subcutaneous pen (Lantus Solostar U-100 Insulin) sacubitril 24 mg-valsartan 26 mg 1 tablet PO Q12HR #60 tabs 10/06/24 Rx tablet (Entresto) spironolactone 25 mg tablet 25 mg PO QAM #30 tabs 10/06/24 Rx <DEE Rodriguez - Last Filed: 10/29/24 11:27> Allergies/Adverse reactions: Allergies Allergy/AdvReac Type Severity Reaction Status Date / Time No Known Allergies Allergy Verified 09/27/24 09:35 <DEE Rodriguez - Last Filed: 10/29/24 11:27> Exam Const: General: comfortable and no acute distress <DEE Rodriguez - Last Filed: 10/29/24 11:27> Orientation/consciousness: oriented to person, oriented to place, oriented to time and No confusion <DEE Rodriguez - Last Filed: 10/29/24 11:27> HENMT: Head: normal to inspection, normocephalic and atraumatic <DEE Rodriguez - Last Filed: 10/29/24 11:27> Mouth: Yes moist mucous membranes <DEE Rodriguez - Last Filed: 10/29/24 11:27> Neck: Neck: supple and no JVD <Lidia CampbellzSOLISP - Last Filed: 10/29/24 11:27> Resp: Effort & Inspection: normal respiratory effort <SOLIS RodriguezP - Last Filed: 10/29/24 11:27> Cardio: Rate: regular rate <Lidia Alejo [employer]2B OUTSIDE SALES REPRESENTATIVE - Last Filed: 10/29/24 11:27> Rhythm: regular rhythm <SOLIS RodriguezP - Last Filed: 10/29/24 11:27> GI: Inspection: non-distended <Lidia Campbelltelma [employer]2B OUTSIDE SALES REPRESENTATIVE - Last Filed: 10/29/24 11:27> GI Palp: Yes Soft to palpation and No Tenderness to palpation present (GI) <SOLIS RodriguezP - Last Filed: 10/29/24 11:27> Neuro: Cognition (Neuro): normal cognition <Lidia Alejo [employer]2B OUTSIDE SALES REPRESENTATIVE - Last Filed: 10/29/24 11:27> Speech: normal speech <Lidia Alejo [employer]2B OUTSIDE SALES REPRESENTATIVE - Last Filed: 10/29/24 11:27> Extrem: Right upper extremity: normal to inspection <Lidia Campbelltelma [employer]2B OUTSIDE SALES REPRESENTATIVE - Last Filed: 10/29/24 11:27> Left upper extremity: normal to inspection <Lidia Alejo [employer]2B OUTSIDE SALES REPRESENTATIVE - Last Filed: 10/29/24 11:27> Right lower extremity: ankle Details: abnormal to inspection, swelling ( 3+) Details: diffusely, abnormal ROM Details: with range as follows (ankle dorsiflexion -10 degrees, plantar flexion 40?, inversion 15?, eversion 15?) and other ( good stability all directions); no tenderness and no ecchymosis and foot Details: abnormal to inspection ( extension deformity of the 3rd and 4th toe) Details: other ( 1 x 1 cm ulcer plantar forefoot under the 4th metatarsal head surrounding callus. No surrounding erythema. No drainage.), abnormal ROM of toe ( hallux MTP dorsiflexion 40, plantar flexion 20?), vascular exam Details: abnormal capillary refill Location: of all toes; dorsalis pedis pulse absent and posterior tibial pulse absent, tendon exam Details: active flexion abnormal and active extension abnormal, motor-sensory exam Details: two point discrimination abnormal Location: in all toes and light-touch abnormal Location: in all toes and other (Hallux metatarsophalangeal motion 20? dorsiflexion/10? plantar flexion) <SOLIS RodriguezP - Last Filed: 10/29/24 11:27> Left lower extremity: ankle Details: normal to inspection and abnormal ROM Details: with range as follows (ankle dorsiflexion -10 degrees, plantar flexion 40?, inversion 15?, eversion 15?); no tenderness and no swelling and foot Details: tenderness, abnormal ROM of toe, warmth, edema Location: of the dorsal foot ( 4+), vascular exam Details: abnormal capillary refill Location: of all toes; dorsalis pedis pulse absent and posterior tivial pulse absent, tendon exam active flexion abnormal of the great toe and active extension abnormal of the great toe and motor-sensory exam two point discrimination abnormal and light-touch abnormal in all toes; abnormal capillary refill and no crepitus <Lidia Alejo [facility] - Last Filed: 10/29/24 11:27> Other: Wound on the plantar aspect of the right 4th MTP joint measures 1.0x1.0x0.7 cm. 100% red/pink wound bed. No signs of active infection. Wound on the calcaneus of the left heel measures 5x3.5x1.0 cm cm, 90% red/pink, 10% yellow. serous drainage, Surrounding tissue mascerated. <SOLIS RodriguezP - Last Filed: 10/29/24 11:27> Psych: Mental Status: mental status grossly normal <SOLIS RodriguezP - Last Filed: 10/29/24 11:27> Affect: normal affect <SOLIS RodriguezP - Last Filed: 10/29/24 11:27> Assessment and Plan Assessment and plan (1) Heel ulcer due to DM: Qualifiers: Diabetes mellitus type: type 2 Laterality: left Non-pressure ulcer stage: with necrosis of muscle Qualified Code(s): E11.621 - Type 2 diabetes mellitus with foot ulcer; L97.423 - Non-pressure chronic ulcer of left heel and midfoot with necrosis of muscle <SOLIS RodriguezP - Last Filed: 10/29/24 11:27> Code(s): E11.621 - Type 2 diabetes mellitus with foot ulcer; L97.409 - Non-pressure chronic ulcer of unspecified heel and midfoot with unspecified severity <SOLIS RodriguezP - Last Filed: 10/29/24 11:27> Status: Acute <SOLIS RodriguezP - Last Filed: 10/29/24 11:27> Assessment and Plan: History and exam reviewed with the patient. Wound VAC removed. Wound appears viable. Maceration from wound VAC. Plan for HOLD and begin daily dressing changes with silver gel/cover dry. Patient will need a new reverse post op shoe. Velcro is no longer working. Will send order to [facility]. Recurrent right calf/inner thigh pain. Recommended repeat LE doppler. Follow up pending doppler results. <SOLIS RodriguezP - Last Filed: 10/29/24 11:27> (2) Type 2 diabetes mellitus with hyperglycemia: Qualifiers: Diabetes mellitus senior living insulin use: with senior living use Qualified Code(s): E11.65 - Type 2 diabetes mellitus with hyperglycemia; Z79.4 - assisted (current) use of insulin <SOLIS RodriguezP - Last Filed: 10/29/24 11:27> Code(s): E11.65 - Type 2 diabetes mellitus with hyperglycemia <SOLIS RodriguezP - Last Filed: 10/29/24 11:27> Status: Acute <Lidia Alejo [facility] - Last Filed: 10/29/24 11:27> Assessment and Plan: Discussed importance of proper nutrition, diabetic diet and medication compliance for optimal healing. Reviewed signs and symptoms of infection including fever, chills, night sweats, nausea, vomiting, diarrhea, changes to the wound bed or purulent drainage to report to the ED immediately. Patient verbalized understanding. <SOLIS RodriguezP - Last Filed: 10/29/24 11:27> Assessment and Plan: [place]: Patient returns to wound clinic with left heel and right foot ulcers. Uncontrolled diabetic and noncompliant with his wound VAC and dressing regimen. Was admitted to the hospital month ago found to have mild congestive heart failure. Now with increased pain left calf and left thigh. Recommend urgent Doppler study to rule out blood clot. Recommend continue wound care with silver gel. Offloading with postop shoe. <Blair Coreas MD - Last Filed: 10/29/24 12:21>
--- NOTE | 2024-12-17 08:41 | PCWOUND ---
WOCN NOTE Patient did not show up for appointment. Let Ortho know.
== END 2024-12-19 23:59 | disposition home or self-care (01) ==
LOC: ANHWOC 07:03
PROVIDERS: PCP Family Medicine; Visit Provider Nurse Practitioner Family
DX: Z79.4 Long term (current) use of insulin (principal); L97.423 Non-pressure chronic ulcer of left heel and midfoot with necrosis of muscle; E11.621 Type 2 diabetes mellitus with foot ulcer; Z48.00 Encounter for change or removal of nonsurgical wound dressing
CPT/HCPCS: 97605; 99213; 99214; G0463

== ENCOUNTER 2024-12-10 16:44 | Inpatient (IN) | payer MEDICARE, SELFPAY ==
--- OUTSIDE RECORDS SUMMARY | 2009-05-01 03:30 | XMS_ITS | Continuity of Care Document ---
Author Organization [facility] Address [address] [place] [address] Phone Care Team Providers Care Community Education Specialist Name Role Phone Ben Cabello Unavailable Unavailable Procedures Procedure Date Office/outpatient Visit, Est Dilated Retinal Exam W Interpretation Ja Dilated Macular Or Fundus Exam Findings Communicat Communication Performed Eye Exam & Treatment Advance Directives Directive Yes / No Effective Date File Name No Information Encounters Encounter Description Practice Location Reason(s) For Visit Diagnoses Date Provider Providers Copied on Encounter Office/outpat ient Visit, Est [facility], [address], [place], [place], [id number], [place] tel:[phone] [facility] No Information 5-201 0 Dawitnasdesiree Ben. [address], [place], [address], [place]. tel:[phone] [facility], [address], [place], [place], [id number], [place] tel:[phone] [facility] No Information 6-200 8 Adamson OD Iain. [address], [place], [address], [place]. tel:[phone] Family History Family Member Type Diagnosis Age At Onset No Information Payers Payer name Insurance type Covered democrat ID Authoriza tion(s) [place] [id number] Social History Type Description Quantity Date Captured Comments Sex Male Smoking Status No Information Chief Complaint And Reason For Visit No Information Reason For Referral Reason For Referral No Information History Of Present Illness Encounter Date Complaint History Of Prese nt Illness No Information Functional Status Date Functional Assessmen t No Information Instructions Date Instruction Additional Infor mation No Information Assessments Type Assessment Date No Information Patient Care Teams Name Effective Dates (start - stop) Status Members No Information
--- OUTSIDE RECORDS SUMMARY | 2024-12-09 10:00 | XMS_ITS | Encounter Summary ---
Author Organization [facility] Healthcare Address [address] [place] [address] Care Team Providers Care Fire Protection Specialist Name Role Phone Ashwin Lawler MD Primary Care Provider [phone] Reason for Referral * Consultation (Routine) - Closed Specialty Diagnoses / Procedures Referred By Contac t Referred To Contact Cardiology Diagnoses Cardiomyopathy, ischemic Becki Sweet NP [address] [address] Phone: tel: fax: [facility] (All Locations) Referral ID Status Reason Start Date Expiration Date V isits Requested Visits Authorized [id number] Closed Specialty Services Required 12/09/2024 01/08/2026 1 1 Question Answer Please select the performing region: [facility] (All Locations) [[id number]] # of visits: 1 Comments Chronic ischemic cardiomyopathy recently worsened to EF 15-20%, requesting ICD implantation Reason for Visit * Reason Comments Hospital Follow Up Encounter Details Date Type Department Care Team (Late st Contact Info) Description 12/09/2024 10:00 AM CDT Office Visit [facility] Cardiology [address] [facility] [address] [place] [phone] Becki Sweet NP [address] [facility] [address] [place] [address] Cardiomyopathy, ischemic; Coronary artery disease involving craig coronary artery of craig heart without angina pectoris; Hospital discharge follow-up Social History Tobacco Use Types Packs/Day Years Used Date Smoking Tobacco: Former Cigarettes Q uit: 04/17/2000 Alcohol Use Standard Drinks/Week Comments No 0 [...] on file 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 [employer] Gender Identity Not on file Sexual Orientation Not on file documented as of this encounter Last Filed Vital Signs Vital Sign Reading Time Taken Comments Blood Pressure 116/58 12/09/2024 10:00 AM CDT Pulse 87 12/09/2024 10:00 AM CDT Temperature - - Respiratory Rate 16 12/09/2024 10:00 AM CDT Oxygen Saturation 99% 12/09/2024 10:00 AM CDT Inhaled Oxygen Concentration - - Weight 77.6 kg (171 lb) 12/09/2024 10:00 AM CDT Height 182.9 cm (6') 12/09/2024 10:00 AM CDT Body Mass Index 23.19 12/09/2024 10:00 AM CDT documented in this encounter Patient Instructions * Patient Instructions* Becki Sweet NP - 12/09/2024 10:00 AM CDT Starting tomorrow, increase Entresto to 49/51 mg twice a day. If you have 24/26 mg tablets at home,you will take two 24/26 mg tablets twice a day. In one more week, increase the carvedilol to 25 mg twice a day. If you have 12.5 mg tablets at home, you will take two 12.5 mg tablets twice a day. Restart Jardiance 10 mg once daily which will help protect you from heart failure. Check blood pressure once a day at least an hour after medication. If your top blood pressure number goes below 95 and/or you feel very lightheaded when you stand up, call the office to let me know. I am referring you for a defibrillator. If more than 2 weeks goes by and you haven't heard from them, please call: [facility] / [facility] [phone] documented in this encounter Progress Notes * Becki Sweet NP - 12/09/2024 10:00 AM CDT [facility] Cardiology [address] [place] [id number] Date of Visit: 12/09/2024 Patient ID: Ramirez Orantes 1955 Chief Complaint Patient presents with Hospital Follow Up Ramirez Orantes is a 69 y.o. male who is an established patient of Dr. Thomas with a history of ischemic cardiomyopathy coming to the office for hospital follow-up after he was found to have further decline in his LVEF. History of Present Illness: Ramirez Orantes is a 69 y.o. male who presents for follow up of coronary artery disease and ischemic cardiomyopathy. This is a patient that is sustained a large anterior wall WI in the remote past and has known to have a significant ischemic myopathy. [facility] a [facility]atus in follow-up. He returns to the office in August of 2022 for follow-up because he was having symptoms of recurrent exertional chest pain prompting concern. 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 His most recent catheterization I believe was in 2015 which demonstrated this graft to be p atent. He had some modest nonocclusive left main disease at that time. The patient after being seenin the office had a Lexiscan nuclear stress test done in the office which demonstrated a large infarction of the anterior wall as expected. There was no significant ischemic burden in any other vascular distribution. His ejection fraction is 23%. He has previously declined the option of a defibrillator. The patient was seen in the office in January of 2023 and was reporting an increase in symptoms of exertional dyspnea with chest pain. Because of his low ejection fraction we arranged for follow-up angiography to be done at [facility]. The procedure demonstrated angiographically moderate but significant circumflex stenosis by IFR. He received a 4 mm Megatron drug-elutingstent with a good angiographic result. As expected his LAD was of course found to be chronically occluded and his WILLIAM graft looked fine. 12/09/2024 hospital follow-up visit with MACHINE I ENGRAVER: He was hospitalized at [facility] 2 months ago for a nonhealing wound in the foot but during the hospitalization he was treated for CHF exacerbation and hada new echo performed which showed that his LVEF had declined to 15-20%. Dr. Thomas saw him during the admission and apparently discovered that he had been taken off his Entresto and carvedilol. These were restarted and Dr. Thomas talked to the patient about being referred for an ICD. The patient returns to the office today for follow-up accompanied by his . He reports having severe shortness of breath with any kind of walking. He sometimes feels presyncopal. He has worsening dizziness. He also has intermittent periods of shaking, feeling cold, and having night sweats. Medical History: Past Medical History: Diagnosis Date CAD (coronary artery disease) DM (diabetes mellitus) HLD (hyperlipidemia) HTN (hypertension) HX OTHER MEDICAL DJD Past Surgical History: Procedure Laterality Date CORONARY ARTERY BYPASS GRAFT HERNIA REPAIR LAPAROSCOPIC GASTRIC BANDING Social History Tobacco Use Smoking Status Former Current packs/day: 0.00 Types: Cigarettes Quit date: 04/17/2000 Years since quittin.6 Smokeless Tobacco Not on file Social History Tobacco Use Smoking status: Former Current packs/day: 0.00 Types: Cigarettes Quit date: 04/17/2000 Years since quittin.6 Smokeless tobacco: None Substance and Sexual Activity Drug use: No Sexual activity: None Alcohol Use: Not At Risk (11/28/2023) Received from [facility] Health AUDIT-C Q1: How often do you have a drink containing alcohol?: Never Q2: How many drinks containing alcohol do you have on a typical day when you are drinking?: Patientdoes not drink Q3: How often do you have six or more drinks on one occasion?: Never Family History Problem Relation Age of Onset Dementia Mother Other Father Pacemaker; Review of Systems Constitutional: Positive for chills, diaphoresis and night sweats. Negative for malaise/fatigue, weight gain and weight loss. Cardiovascular: Positive for dyspnea on exertion and near-syncope. Negative for chest pain, leg swelling, orthopnea, palpitations, paroxysmal nocturnal dyspnea and syncope. Respiratory: Negative for cough and sleep disturbances due to breathing. Hematologic/Lymphatic: Negative for bleeding problem. Does not bruise/bleed easily. Neurological: Positive for dizziness. Vital Signs: BP 116/58 (BP Location: Left arm, Patient Position: Sitting) Pulse 87 Resp 16 Ht 182.9 cm (6') Wt 77.6 kg (171 lb) SpO2 99% BMI 23.19 kg/m?? Physical Exam Constitutional: General: He is not in acute distress. Appearance: He is well-developed. HENT: Head: Normocephalic and atraumatic. Eyes: General: No scleral icterus. Conjunctiva/sclera: Conjunctivae normal. Neck: Vascular: No JVD. Trachea: No tracheal deviation. Cardiovascular: Rate and Rhythm: Normal rate and regular rhythm. Heart sounds: Normal heart sounds. No murmur heard. Pulmonary: Effort: Pulmonary effort is normal. No respiratory distress. Breath sounds: Examination of the left-lower field reveals decreased breath sounds. Decreased breath sounds present. Musculoskeletal: Right lower leg: No edema. Left lower leg: Edema (1+ pretibial) present. Skin: General: Skin is warm and dry. Neurological: Mental Status: He is alert and oriented to person, place, and time. Psychiatric: Mood and Affect: Mood normal. Behavior: Behavior normal. No Known Allergies Current Outpatient Medications: aspirin 81 mg tablet, take 1 Tablet (81MG) by oral route every day, Disp: , Rfl: 0 carvediloL (COREG) 25 mg tablet, Take 1 tablet (25 mg total) by mouth 2 (two) times a day with meals, Disp: 180 tablet, Rfl: 3 clopidogreL (PLAVIX) 75 mg tablet, Take 1 tablet (75 mg total) by mouth daily, Disp: 30 tablet, Rfl: 11 empagliflozin (JARDIANCE) 10 mg tablet, Take 1 tablet (10 mg total) by mouth daily, Disp: , Rfl: glimepiride (AMARYL) 4 mg tablet, take 1 tablet (4MG) by oral route every day, Disp: , Rfl: 0 isosorbide mononitrate ER (IMDUR) 30 mg 24 hr tablet, take 1 tablet by oral route every day in the morning, Disp: 30, Rfl: 3 meclizine (ANTIVERT) 25 mg tablet, take 1 tablet by oral route 3 times every day as needed, Disp: 0, Rfl: 0 metFORMIN (GLUCOPHAGE) 500 mg tablet, take 1 tablet (500MG) by oral route 2 times every day with morning and evening meals, Disp: , Rfl: 0 nitroglycerin (NITROSTAT) 0.4 mg SL tablet, place 1 tablet by sublingual route at the 1st sign of attack; may repeat every 5 min until relief; if pain persists after 3 tablets in 15 min, prompt medical attention is recommended, Disp: 25, Rfl: 0 rosuvastatin (CRESTOR) 5 mg tablet, Take 1 tablet (5 mg total) by mouth daily, Disp: , Rfl: sacubitriL-valsartan (ENTRESTO) 49-51 mg tablet, Take 1 tablet by mouth 2 (two) times a day, Disp: 60 tablet, Rfl: 3 sulfamethoxazole-trimethoprim (BACTRIM) 400-80 mg per tablet, Take 1 tablet by mouth 2 (two) times a day, Disp: , Rfl: spironolactone (ALDACTONE) 25 mg tablet, Take 1 tablet (25 mg total) by mouth daily (Patient not taking: Reported on 12/09/2024), Disp: 90 tablet, Rfl: 3 Lab Results Component Value Date POTASSIUM 4.9 03/03/2023 BUNSER 19 03/03/2023 CREATININE 0.75 03/03/2023 EGFR 98 03/03/2023 CHOL 118 08/14/2015 TRIG 79 08/14/2015 LDL 58 08/14/2015 HDL 44 08/14/2015 Lab Results Component Value Date WBC 4.7 03/03/2023 HGB 13.6 03/03/2023 HCT 41.4 03/03/2023 MCV 93.0 03/03/2023 Recent Results (from the past 4 hours) POCT lipid panel Collection Time: 12/09/24 9:59 AM Result Value Ref Range Cholesterol, POC 107 <200 MG/DL HDL, POC 40 >=40 mg/dL Triglycerides, POC 49 <=149 mg/dL LDL Cholesterol POC 57 <=129 mg/dL Chol/HDL Ratio, POC 1.4 NONE Non-HDL Cholesterol, POC 67 NONE mg/dL Cholesterol Total, POC 107 30 - 199 mg/dL Lab Results Component Value Date POCCHOL 107 12/09/2024 POCHDL 40 12/09/2024 POCTRIG 49 12/09/2024 POCLDL 57 12/09/2024 POCNONHDL 67 12/09/2024 POCCHLPL 107 12/09/2024 Assessment: Diagnoses and all orders for this visit: Cardiomyopathy, ischemic - Ambulatory referral to Cardiac Electrophysiology; Future Coronary artery disease involving craig coronary artery of craig heart without angina pectoris - POCT lipid panel Hospital discharge follow-up Plan/Recommendations: He has a history of ischemic cardiomyopathy with a recent worsening of his LVEF. He is now back on Entresto and carvedilol. I also asked him to restart Jardiance and make sure he is taking spironolactone. We will up titrate his Entresto to 49/51 mg b.i.d.. Begin checking blood pressure once daily at least an hour after medication. In another week increase carvedilol to 25 mg b.i.d.. If orthostatic symptoms worsen and/or systolic BP goes below 95 mmHg call the office to let me know. I explained the indication for ICD for SCD prevention. Patient has been thinking about this and states he wants to be referred. He would like to to [facility]. I will place that referral. For his history of CAD, continue aspirin, clopidogrel, rosuvastatin, isosorbide. Routine follow-up with Dr. Thomas in 3 months or his next available. 12/09/2024 JUNO Meehan- Nurse Practitioner with [facility] This note is dictated and transcribed using [employer] Software. Communications Supervisor variancesmay occur. Despite proofreading, typographical errors may occur. documented in this encounter Plan of Treatment Scheduled Referrals Name Type Priority Associated Diagnoses Order Schedule Ambulatory referral to Cardiac Electrophysiology Outpatient Referral Routine Cardiomyopathy, ischemic Expected: 02/08/2025 (Approximate), Expires: 12/09/2025 documented as of this encounter Procedures Procedure Name Priority Date/Time Associated Diagnosis Comments POCT LIPID PANEL Routine 12/09/2024 9:59 AM CDT Coronary artery disease involving craig coronary artery of craig heart without angina pectoris documented in this encounter Results * POCT lipid panel (12/09/2024 9:59 AM CDT) Cholesterol, POC 107 <200 MG/DL HDL, POC 40 >=40 mg/dL Triglycerides, POC 49 <=149 mg/dL LDL Cholesterol POC 57 <=129 mg/dL Chol/HDL Ratio, POC 1.4 NONE Non-HDL Cholesterol, POC 67 NONE mg/dL Cholesterol Total, POC 107 30 - 199 mg/dL Capillary blood 12/09/2024 9 :59 AM CDT Becki Sweet MACHINE I ENGRAVER POINT OF CARE TEST ORDERA BLES Final Result documented in this encounter Visit Diagnoses Diagnosis Cardiomyopathy, ischemic Other specified forms of chronic ischemic heart disease Coronary artery disease involving craig coronary artery of craig heart without angina pectoris Hospital discharge follow-up Other follow-up examination documented in this encounter Historical Medications * This list may reflect changes made after this encounter. empagliflozin (JARDIANCE) 10 mg tablet Take 1 tablet (10 mg total) by mouth daily 06/18/2024 added in this encounter Care Teams Fire Protection Specialist Relationship Specialty Start Date End Date Ashwin Lawler MD [address] [place] [id number] PCP - General Family Medicine 08/21/22 documented as of this encounter
[2024-12-10] VITALS (18 sets, daily range): BP systolic 78–163; BP diastolic 49–87; PULSE 73–95; RESP 14–30; TEMP 36.5–38.1; O2SAT 96–100; BMI 23.9
--- NOTE | ~2024-12-10 | CT_ITS ---
EXAMINATION: CT brain wo con DATE: 12/11/2024 13:23 INDICATION: Head injury TECHNIQUE: Computed tomography (CT) of the head was performed without intravenous contrast. The dose-length product was 605.33 mGy-cm. Automated exposure control and iterative reconstruction technique were employed. COMPARISON: CT dated 03/28/2024 FINDINGS: Brain parenchymal volume is normal for age. There are scattered mild periventricular and subcortical white matter changes, most likely related to small vessel ischemic disease (microangiopathy). There is intracranial atherosclerosis. No ventriculomegaly or midline shift. Basilar cisterns are patent. Paranasal sinuses and mastoids are pneumatized. No depressed skull fractures. IMPRESSION: 1. No acute intracranial abnormality. Reviewed, dictated and finalized at location O.
--- NOTE | ~2024-12-10 | XR_ITS ---
EXAMINATION: XR chest 1V portable DATE: 12/10/2024 19:40 INDICATION: Fatigue TECHNIQUE: frontal view of the chest was obtained. COMPARISON: Chest radiograph and CT dated 10/04/2024 FINDINGS: Interval improvement in prior pulmonary edema. Airspace opacity at the medial left mid to lower lung zone with similar configuration as the band of atelectasis/scarring in the lingula seen on the prior CT. Right lung is clear. No pleural effusion or pneumothorax. Cardiomegaly. IMPRESSION: 1. Opacity at the medial left mid to lower lung zone which could be related to persistent lingular atelectasis/scarring although differential includes pneumonia. Reviewed, dictated and finalized at location A. IMPRESSION: 1. Opacity at the medial left mid to lower lung zone which could be related to persistent lingular atelectasis/scarring although differential includes pneumon ia.
--- NOTE | ~2024-12-10 | XR_ITS ---
EXAMINATION: XR foot RT min 3V, XR foot LT min 3V DATE: 12/10/2024 18:22 INDICATION: Wound at the right great toe and at the left heel TECHNIQUE: 1. Dorsoplantar, oblique and lateral views of the right foot were obtained. 2. Dorsoplantar, oblique and lateral views of the left foot were obtained. COMPARISON: None. FINDINGS: There is dorsal subluxation at the right third and fourth proximal interphalangeal joints with suggestion of significant remodeling some loss of bone stock at the base of the fourth proximal phalanx. Otherwise normal alignment at both feet and ankles. No fractures. Relative asymmetric pattern of mild to moderate severity polyarticular osteoarthritis at the bilateral feet most prominent at a few of the bilateral tarsal metatarsal and interphalangeal joints. Moderate-sized bilateral Achilles and plantar calcaneal spurs. Deep ulceration plantar to the left heel with lucency extending to the level of the bone at the inferior aspect of the calcaneal tuberosity. No definitive cortical erosion or ostial lysis at the left posterior calcaneal tuberosity. There are relatively symmetric juxta articular erosions at the medial side of the heads of the bilateral first proximal phalanges each demonstrating overhanging edges typical of gout. Additional similar appearing juxta-articular erosions at the lateral aspect of the heads of the right second and fourth metatarsals. IMPRESSION: 1. Deep erosion plantar to the left calcaneus with lucent gas extending to the level of the posterior tuberosity of the calcaneus but without evident osteolysis to suggest osteomyelitis. 2. Juxta articular erosions with overhanging edges at the medial aspect of the heads of the bilateral first proximal phalanges and at the order side of the right third and fourth metatarsal heads with appearance suspicious for gout. 3. Significant dorsal subluxation, potentially dislocation at the third and fourth metatarsophalangeal joints with suggestion of severe osteoarthritis with remodeling of the base of the fourth proximal phalanx. 4. 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 Reviewed, dictated and finalized at location A. IMPRESSION: 1. Deep erosion plantar to the left calcaneus with lucent gas extending to the level of the posterior tuberosity of the calcaneus but without evident osteolys is to suggest osteomyelitis. 2. Juxta articular erosions with overhanging edges at the medial aspect of the heads of the bilateral first proximal phalanges and at the order side of the ri ght third and fourth metatarsal heads with appearance suspicious for gout. 3. Significant dorsal subluxation, potentially dislocation at the third and fou rth metatarsophalangeal joints with suggestion of severe osteoarthritis with re modeling of the base of the fourth proximal phalanx. 4. Additional mild to moderate polyarticular osteoarthritis at the bilateral fe et.
--- OUTSIDE RECORDS SUMMARY | 2024-12-10 16:46 | XMS_ITS | Clinical Summary ---
Author Organization [facility] Address [address] [facility] [place] [address] Care Team Providers Care Waiter/Waitress Second Class Name Role Phone Ashwin Lawler MD Primary Care Provider [phone] Source Comments [facility],non-owned Affiliates and Associated Physician Practices is amultiple site organization consisting of ambulatory clinics and hospital sitesin [place], [place], [place] and [place]. This disclosure is being madepursuant to the Care Everywhere program and may not contain all information available regarding this patient. Last updated 18.[facility] Allergies No known active allergies Medications * [...] place to sleep or slept in a longterm (including now)? 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
--- OUTSIDE RECORDS SUMMARY | 2024-12-10 16:46 | XMS_ITS | Encounter Summary ---
Author Organization [employer] Address [address] [place] [address] Care Team Providers Care Transportation Dispatch Manager Name Role Phone Unavailable Primary Care Provider Unavailabl e Encounter Details Date Type Department Care Team (Late st Contact Info) Description 09/10/2006 Outpatient Historical [facility] Support Serv. (Adt Cardiology-[facility]) [address] 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
--- OUTSIDE RECORDS SUMMARY | 2024-12-10 16:46 | XMS_ITS | Encounter Summary ---
Author Organization [facility] Address [address] [place] [address] Care Team Providers Care Manager Commodities Name Role Phone Unavailable Primary Care Provider Unavailabl e Encounter Details Date Type Department Care Team (Late st Contact Info) Description 09/07/2006 Outpatient Historical [facility] Cardiovas and Thor Surg at [facility] [address] 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
--- OUTSIDE RECORDS SUMMARY | 2024-12-10 16:46 | XMS_ITS | Encounter Summary ---
Author Organization Address [address] [place] [address] Care Team Providers Care Chemists Name Role Phone Unavailable Primary Care Provider Unavailabl e Encounter Details Date Type Department Care Team (Late st Contact Info) Description 09/06/2006 Outpatient Historical [facility] Cardiovas and Thor Surg at [facility] [address] [facility] [place] [address] Elena Navarro MD [address] [facility] [address] [place] [address] Social History Tobacco Use Types Packs/Day Years Used Date Smoking Tobacco: Never Assessed Sex and Gender Information Value Date Recorded Sex Assigned at Not on file 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
--- OUTSIDE RECORDS SUMMARY | 2024-12-10 16:46 | XMS_ITS | Encounter Summary ---
Author Organization [employer] [facility] Address [address] [place] [address] Care Team Providers Care Heat Treating Furnace Tender Name Role Phone Unavailable Primary Care Provider Unavailabl e Encounter Details Date Type Department Care Team (Latest Contact Info) Description 10/12/2006 Outpatient Historical [facility] RADHIKA Navarro, Elena Baig MD [address] [place] [address] Follow-Up Examination, Following Other Surgery (Primary Dx); Coronary Atherosclerosis of [place] Coronary Artery; Unspecified Pleural Effusion; Pulmonary Collapse Social History Tobacco Use Types Packs/Day Years Used Date Smoking Tobacco: Never Assessed Sex and Gender Information Value Date Recorded Sex Assigned at Not on file 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
--- OUTSIDE RECORDS SUMMARY | 2024-12-10 16:46 | XMS_ITS | Encounter Summary ---
Author Organization [employer] Address [address] [place] [address] Care Team Providers Care Platform Consultant Name Role Phone Unavailable Primary Care Provider Unavailabl e Encounter Details Date Type Department Care Team (Late st Contact Info) Description 06/08/2005 Outpatient Historical [facility] Support Serv. (Adt Cardiology-[facility]) [address] [place] [phone] Sebastian Fletcher MD NO ADDRESS ON FILE Social History Tobacco Use Types Packs/Day Years Used Date Smoking Tobacco: Never Assessed Sex and Gender Information Value Date Recorded Sex Assigned at Not on file Legal Sex Male 4:42 AM NUTRITIONAL CHEMIST Gender Identity Not on file Sexual Orientation Not on file documented as of this encounter Plan of Treatment Not on file documented as of this encounter Visit Diagnoses Not on filedocumented in this encounter
--- OUTSIDE RECORDS SUMMARY | 2024-12-10 16:46 | XMS_ITS | Clinical Summary ---
Author Organization [facility] Address [address] [facility] [place] [address] [place] [address] Care Team Providers Care Heading Pinner Name Role Phone Unavailable Primary Care Provider Unavailabl e Social History Tobacco Use Types Packs/Day Years Used Date Smoking Tobacco: Never Assessed Sex and Gender Information Value Date Recorded Sex Assigned at Not on file Legal Sex Male 4:42 AM EDITOR DEPARTMENT Gender Identity Not on file Sexual Orientation [...]
--- OUTSIDE RECORDS SUMMARY | 2024-12-10 16:46 | XMS_ITS | Encounter Summary ---
Author Organization [employer] Address [address] [place] [address] Care Team Providers Care Field Marketing Coordinator Name Role Phone Unavailable Primary Care Provider Unavailabl e Encounter Details Date Type Department Care Team (Late st Contact Info) Description 09/06/2006 Outpatient Historical [facility] Support Serv. (Adt Cardiology-[facility]) [address] [place] [phone] Abiel Joyner MD NO ADDRESS ON FILE Social History Tobacco Use Types Packs/Day Years Used Date Smoking Tobacco: Never Assessed Sex and Gender Information Value Date Recorded Sex Assigned at Not on file Legal Sex Male 4:42 AM TOP CAGER Gender Identity Not on file Sexual Orientation Not on file documented as of this encounter Plan of Treatment Not on file documented as of this encounter Visit Diagnoses Not on filedocumented in this encounter
--- OUTSIDE RECORDS SUMMARY | 2024-12-10 16:46 | XMS_ITS | Encounter Summary ---
Author Organization [facility] Address [address] [place] [address] Care Team Providers Care Countersinker Name Role Phone Unavailable Primary Care Provider Unavailabl e Encounter Details Date Type Department Care Team (Late st Contact Info) Description 09/07/2006 Outpatient Historical [facility] Cardiovas and Thor Surg at [facility] [address] [facility] [place] [address] Elena Navarro MD [address] [facility] [address] [place] [address] Social History Tobacco Use Types Packs/Day Years Used Date Smoking Tobacco: Never Assessed Sex and Gender Information Value Date Recorded Sex Assigned at Not on file Legal Sex Male 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
--- OUTSIDE RECORDS SUMMARY | 2024-12-10 16:46 | XMS_ITS | Encounter Summary ---
Author Organization [facility] Address [address] [place] [address] Care Team Providers Care Blue Crabber Name Role Phone Unavailable Primary Care Provider Unavailabl e Encounter Details Date Type Department Care Team (Late st Contact Info) Description 10/12/2006 Outpatient Historical [facility] Cardiovas and Thor Surg at [facility] [address] [facility] [place] [address] Elena Navarro MD [address] [facility] [address] [place] [address] Social History Tobacco Use Types Packs/Day Years Used Date Smoking Tobacco: Never Assessed Sex and Gender Information Value Date Recorded Sex Assigned at Not on file Legal Sex Male 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
--- OUTSIDE RECORDS SUMMARY | 2024-12-10 16:46 | XMS_ITS | Encounter Summary ---
Author Organization [facility] Address 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 Elena Navarro MD [facility] [address] [address] Patric Thomas MD [address] [facility] [address] [facility] [address] [place] [address] Coronary Atherosclerosis of [place] Coronary Artery (Primary Dx) Social History Tobacco Use Types Packs/Day Years Used Date Smoking Tobacco: Never Assessed Sex and Gender Information Value Date Recorded Sex Assigned at Not on file 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 Gender Identity Not on file [...] CARE TESTING Javier jadiel Performing Organization Address City/[facility] Co de Phone Number [...] CARE TESTING Javier jadiel Performing Organization Address [facility] Phone Number INTERFACE SYSTEM Refer to clinic/hospital department * (ABNORMAL) POC GLUCOSE (09/09/2006 11:06 AM CDT) GLUCOSE POC 226(H) 65 - 99 mg/dL INTERFACE SYSTEM 09/09/2006 11:0 6 AM CDT Patric Thomas MD POINT OF CARE TESTING Javier jadiel Performing Organization Address [facility] Phone Number INTERFACE SYSTEM Refer to clinic/hospital department * (ABNORMAL) POC GLUCOSE (09/09/2006 7:38 AM CDT) GLUCOSE POC 169(H) 65 - 99 mg/dL INTERFACE SYSTEM 09/09/2006 7:38 AM CDT Patric Thomas MD POINT OF CARE TESTING Javier jadiel Performing Organization Address [facility] Phone Number INTERFACE SYSTEM Refer [...] MC HEMATOLOGY ORDERABLES Edited Performing Organization Address [facility] Phone Number INTERFACE SYSTEM Refer [...] MC HEMATOLOGY ORDERABLES Edited Performing Organization Address [facility] Phone Number INTERFACE SYSTEM Refer to clinic/hospital department * MAGNESIUM LEVEL (09/09/2006 4:40 AM CDT) MAGNESIUM 2.5 1.5 - 2.5 mg/dL INTERFACE SYSTEM 09/09/2006 4:40 AM CDT Patric Thomas MD CHEMISTRY ORDERABLES Edit ed Performing Organization Address [facility] Phone Number INTERFACE SYSTEM Refer [...] and non- Americans is available on the [facility] Intranet at: [email or web address] Select: Lab Policies and Procedures Select: Reference Ranges - GFR 09/09/2006 4:40 AM CDT us Kori MC CHEMISTRY ORDERABLES Edited Performing Organization Address [facility] de Phone Number INTERFACE SYSTEM Refer to clinic/hospital department * (ABNORMAL) POC GLUCOSE (09/08/2006 8:21 PM CDT) GLUCOSE POC 245(H) 65 - 99 mg/dL INTERFACE SYSTEM 09/08/2006 8:21 PM CDT Patric Thomas MD POINT OF CARE TESTING Javieradair duvall Performing Organization Address [facility] de Phone Number INTERFACE SYSTEM Refer to clinic/hospital department * (ABNORMAL) POC GLUCOSE (09/08/2006 4:45 PM CDT) GLUCOSE POC 190(H) 65 - 99 mg/dL INTERFACE SYSTEM 09/08/2006 4:45 PM CDT Patric Thomas MD POINT OF CARE TESTING Javier jadiel Performing Organization Address [facility] de Phone Number INTERFACE SYSTEM Refer to clinic/hospital department * (ABNORMAL) POC GLUCOSE (09/08/2006 11:32 AM CDT) GLUCOSE POC 140(H) 65 - 99 mg/dL INTERFACE SYSTEM 09/08/2006 11:3 2 AM CDT Patric Thomas MD POINT OF CARE TESTING Javier jadiel Performing Organization Address [facility] Phone Number INTERFACE SYSTEM Refer to clinic/hospital department * (ABNORMAL) POC GLUCOSE (09/08/2006 9:35 AM CDT) GLUCOSE POC 119(H) 65 - 99 mg/dL INTERFACE SYSTEM 09/08/2006 9:35 AM CDT Patric Thomas MD POINT OF CARE TESTING Javier jadiel Performing Organization Address [facility] Phone Number INTERFACE SYSTEM Refer to clinic/hospital department * (ABNORMAL) POC GLUCOSE (09/08/2006 6:01 AM CDT) GLUCOSE POC 134(H) 65 - 99 mg/dL INTERFACE SYSTEM 09/08/2006 6:01 AM CDT Patric Thomas MD POINT OF CARE TESTING Javier jadiel Performing Organization Address [facility] Phone Number INTERFACE SYSTEM Refer to clinic/hospital department * (ABNORMAL) POC GLUCOSE (09/08/2006 4:30 AM CDT) GLUCOSE POC 129(H) 65 - 99 mg/dL INTERFACE SYSTEM 09/08/2006 4:30 AM CDT Patric Thomas MD POINT OF CARE TESTING Javier jadiel Performing Organization Address [facility] Phone Number INTERFACE SYSTEM Refer [...] HEMATOLOGY ORDERABLES Edit ed Performing Organization Address [facility] de Phone Number INTERFACE SYSTEM Refer [...] HEMATOLOGY ORDERABLES Edit ed Performing Organization Address [facility] de Phone Number INTERFACE SYSTEM Refer [...] patients with mechanical heart valves or post [place]. Pediatric (12 years and under): 1.5 - [...] and non- Americans is available on the [facility] Intranet at: [email or web address] Select: Lab Policies and Procedures Select: Reference Ranges - GFR 09/08/2006 4:30 AM CDT Elena Navarro MD CHEMISTRY ORDERABLES Edite d Performing Organization Address [facility] de Phone Number INTERFACE SYSTEM Refer to clinic/hospital department * (ABNORMAL) CVR ONLY, CKMB/CK (09/08/2006 4:30 AM CDT) CKMB 3.8 <=6.7 ng/mL INTERFACE SYSTEM CKMB INTERP Negative INTERFAC E SYSTEM CK 232(H) 10 - 170 U/L INTERFACE SYSTEM CARDIAC RELATIVE INDEX 1.6 <=4.0 INTERFACE SYSTEM 09/08/2006 4:30 AM CDT Elena Navarro MD CHEMISTRY ORDERABLES Edite d Performing Organization Address [facility] de Phone Number INTERFACE SYSTEM Refer to clinic/hospital department * (ABNORMAL) POC GLUCOSE (09/07/2006 11:35 PM CDT) GLUCOSE POC 135(H) 65 - 99 mg/dL INTERFACE SYSTEM 09/07/2006 11:3 5 PM CDT Patric Thomas MD POINT OF CARE TESTING Javier jadiel Performing Organization Address [facility] de Phone Number INTERFACE SYSTEM Refer to clinic/hospital department * (ABNORMAL) POC GLUCOSE (09/07/2006 10:18 PM CDT) GLUCOSE POC 130(H) 65 - 99 mg/dL INTERFACE SYSTEM 09/07/2006 10:1 8 PM CDT Patric Thomas MD POINT OF CARE TESTING Javier jadiel Performing Organization Address City/[facility] Phone Number INTERFACE SYSTEM Refer to clinic/hospital department * MAGNESIUM LEVEL (09/07/2006 10:00 PM CDT) MAGNESIUM 2.1 1.5 - 2.5 mg/dL INTERFACE SYSTEM 09/07/2006 10:0 0 PM CDT Kori MC CHEMISTRY ORDERABLES Edited Performing Organization Address [facility] Phone Number INTERFACE SYSTEM Refer to clinic/hospital department * POTASSIUM LEVEL (09/07/2006 10:00 PM CDT) POTASSIUM 4.0 3.5 - 4.9 mmol/L INTERFACE SYSTEM 09/07/2006 10:0 0 PM CDT us Kori MC CHEMISTRY ORDERABLES Edited Performing Organization Address [facility] Phone Number INTERFACE SYSTEM Refer to clinic/hospital department * (ABNORMAL) CVR ONLY, CKMB/CK (09/07/2006 8:45 PM CDT) CKMB 5.2 <=6.7 ng/mL INTERFACE SYSTEM CKMB INTERP Negative INTERFAC E SYSTEM CK 260(H) 10 - 170 U/L INTERFACE SYSTEM CARDIAC RELATIVE INDEX 2.0 <=4.0 INTERFACE SYSTEM 09/07/2006 8:45 PM CDT Elena Navarro MD CHEMISTRY ORDERABLES Edite d Performing Organization Address [facility] Phone Number INTERFACE SYSTEM Refer to clinic/hospital department * POC GLUCOSE (09/07/2006 8:44 PM CDT) GLUCOSE POC 94 65 - 99 mg/dL INTERFACE SYSTEM 09/07/2006 8:44 PM CDT Patric Thomas MD POINT OF CARE TESTING Javier jadiel Performing Organization Address [facility] Phone Number INTERFACE SYSTEM Refer to clinic/hospital department * (ABNORMAL) POC GLUCOSE (09/07/2006 6:23 PM CDT) GLUCOSE POC 152(H) 65 - 99 mg/dL INTERFACE SYSTEM 09/07/2006 6:23 PM CDT Patric Thomas MD POINT OF CARE TESTING Javier jadiel Performing Organization Address [facility] Phone Number INTERFACE SYSTEM Refer to clinic/hospital department * (ABNORMAL) POC GLUCOSE (09/07/2006 4:48 PM CDT) GLUCOSE POC 191(H) 65 - 99 mg/dL INTERFACE SYSTEM 09/07/2006 4:48 PM CDT Patric Thomas MD POINT OF CARE TESTING Javier jadiel Performing Organization Address [facility] Phone Number INTERFACE SYSTEM Refer to clinic/hospital department * (ABNORMAL) POC GLUCOSE (09/07/2006 3:51 PM CDT) GLUCOSE POC 189(H) 65 - 99 mg/dL INTERFACE SYSTEM 09/07/2006 3:51 PM CDT Patric Thomas MD POINT OF CARE TESTING Javier jadiel Performing Organization Address City/[facility] Phone Number INTERFACE SYSTEM Refer to clinic/hospital department * POTASSIUM LEVEL (09/07/2006 3:45 PM CDT) POTASSIUM 4.1 3.5 - 4.9 mmol/L INTERFACE SYSTEM 09/07/2006 3:45 PM CDT us Elena Navarro MD CHEMISTRY ORDERABLES Edite d Performing Organization Address [facility] de Phone Number INTERFACE SYSTEM Refer to clinic/hospital department * (ABNORMAL) POC GLUCOSE (09/07/2006 2:45 PM CDT) GLUCOSE POC 226(H) 65 - 99 mg/dL INTERFACE SYSTEM 09/07/2006 2:45 PM CDT us Patric Thomas MD POINT OF CARE TESTING Javier jadiel Performing Organization Address [facility] de Phone Number INTERFACE SYSTEM Refer to clinic/hospital department * (ABNORMAL) POC GLUCOSE (09/07/2006 1:17 PM CDT) GLUCOSE POC 238(H) 65 - 99 mg/dL INTERFACE SYSTEM 09/07/2006 1:17 PM CDT us Patric Thomas MD POINT OF CARE TESTING Javier jadiel Performing Organization Address [facility] de Phone Number INTERFACE SYSTEM Refer [...] CHEMISTRY ORDERABLES Edit ed Performing Organization Address [facility] de Phone Number INTERFACE SYSTEM Refer [...] CHEMISTRY ORDERABLES Edite d Performing Organization Address [facility] de Phone Number INTERFACE SYSTEM Refer [...] HEMATOLOGY ORDERABLES Edit ed Performing Organization Address [facility] de Phone Number INTERFACE SYSTEM Refer [...] patients with mechanical heart valves or post [place]. Pediatric (12 years and under): 1.5 - [...] HEMATOLOGY ORDERABLES Edit ed Performing Organization Address [facility] de Phone Number INTERFACE SYSTEM Refer to clinic/hospital department * MAGNESIUM LEVEL (09/07/2006 10:00 AM CDT) MAGNESIUM 2.2 1.5 - 2.5 mg/dL INTERFACE SYSTEM 09/07/2006 10:0 0 AM CDT us Elena Navarro MD CHEMISTRY ORDERABLES Edite d Performing Organization Address [facility] Phone Number INTERFACE SYSTEM Refer [...] and non- Americans is available on the [facility] Intranet at: [email or web address] Select: Lab Policies and Procedures Select: Reference Ranges - GFR 09/07/2006 10:0 0 AM CDT us Elena Navarro MD CHEMISTRY ORDERABLES Edite d Performing Organization Address [facility] de Phone Number INTERFACE SYSTEM Refer [...] CHEMISTRY ORDERABLES Edit ed Performing Organization Address [facility] de Phone Number INTERFACE SYSTEM Refer [...] CHEMISTRY ORDERABLES Edit ed Performing Organization Address City/State/[facility] Co de Phone Number [...] CHEMISTRY ORDERABLES Edit ed Performing Organization Address City/State/[facility] Co de Phone Number INTERFACE SYSTEM Refer to clinic/hospital department * (ABNORMAL) POC GLUCOSE (09/07/2006 5:15 AM CDT) GLUCOSE POC 211(H) 65 - 99 mg/dL INTERFACE SYSTEM 09/07/2006 5:15 AM CDT Patric Thomas MD POINT OF CARE TESTING Javier jadiel Performing Organization Address [facility] Phone Number INTERFACE SYSTEM Refer to clinic/hospital department * (ABNORMAL) POC GLUCOSE (09/06/2006 9:43 PM CDT) GLUCOSE POC 186(H) 65 - 99 mg/dL INTERFACE SYSTEM 09/06/2006 9:43 PM CDT Patric Thomas MD POINT OF CARE TESTING Javier jadiel Performing Organization Address [facility] Phone Number INTERFACE SYSTEM Refer to [...] MD URINE ORDERABLES Edited Performing Organization Address [facility] Phone Number INTERFACE SYSTEM Refer [...] MD URINE ORDERABLES Edited Performing Organization Address [facility] Phone Number INTERFACE SYSTEM Refer to clinic/hospital department * (ABNORMAL) POC GLUCOSE (09/06/2006 2:22 PM CDT) GLUCOSE POC 174(H) 65 - 99 mg/dL INTERFACE SYSTEM 09/06/2006 2:22 PM CDT Patric Thomas MD POINT OF CARE TESTING Javier jadiel Performing Organization Address [facility] Phone Number INTERFACE SYSTEM Refer to clinic/hospital department * POC ACTIVATED CLOTTING TIME (09/06/2006 1:28 PM CDT) ACT POC 110 Seconds INTERFACE SYSTEM Comment: Note sheath pull range change effective 10/07/2005. ACT value for sheath pull at [facility] has been established to be < or = to 1 40. (See also Nursing Procedures for sheath pull in related nursing areas) 09/06/2006 1:28 PM CDT Patric Thomas MD POINT OF CARE TESTING Javier jadiel Performing Organization Address [facility] Phone Number INTERFACE SYSTEM Refer to clinic/hospital department * POC ACTIVATED CLOTTING TIME (09/06/2006 10:13 AM CDT) ACT POC 602 Seconds INTERFACE SYSTEM Comment: Note sheath pull range change effective 10/07/2005. ACT value for sheath pull at [facility] has been established to be < or = to 1 40. (See also Nursing Procedures for sheath pull in related nursing areas) COMMENT, ACT POC Rpt @ no charge INTERFACE SYSTEM 09/06/2006 10:1 3 AM CDT us Patric Thomas MD POINT OF CARE TESTING Javieradair duvall Performing Organization Address [facility] Phone Number INTERFACE SYSTEM Refer to clinic/hospital department * POC ACTIVATED CLOTTING TIME (09/06/2006 10:13 AM CDT) ACT POC 755 Seconds INTERFACE SYSTEM Comment: Note sheath pull range change effective 10/07/2005. ACT value for sheath pull at [facility] has been established to be < or = to 1 40. (See also Nursing Procedures for sheath pull in related nursing areas) 09/06/2006 10:1 3 AM CDT Patric Thomas MD POINT OF CARE TESTING Javier jadiel Performing Organization Address [facility] Phone Number INTERFACE SYSTEM Refer to clinic/hospital department * (ABNORMAL) POC GLUCOSE (09/06/2006 7:44 AM CDT) COMMENT, GLU POC Notified RN INTERFACE SYSTEM GLUCOSE POC 231(H) 65 - 99 mg/dL INTERFACE SYSTEM 09/06/2006 7:44 AM CDT Patric Thomas MD POINT OF CARE TESTING Javier jadiel Performing Organization Address [facility] Phone Number INTERFACE SYSTEM Refer to clinic/hospital department documented in this encounter Visit Diagnoses Diagnosis Coronary atherosclerosis of [place] coronary artery- Primary documented in this encounter
--- OUTSIDE RECORDS SUMMARY | 2024-12-10 16:47 | XMS_ITS | Encounter Summary ---
Author Organization [facility] Address [address] [facility] [place] [address] Care Team Providers Care Crew Trainer Name Role Phone Ashwin Lawler MD Primary Care Provider [phone] Encounter Details Date Type Department Care Team (Late st Contact Info) Description 06/04/2019 Telephone [facility] [address] [place] [address] Jonnathan Schafer MD 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 Patient Call Back number: [phone] RATION MANAGER documented in this encounter Plan of Treatment Not on file documented as of this encounter Visit Diagnoses Not on filedocumented in this encounter Care Teams Crew Trainer Relationship Specialty Start Date End Date Ashwin Lawler MD PCP - General 09/26/17 documented as of this encounter
--- OUTSIDE RECORDS SUMMARY | 2024-12-10 16:47 | XMS_ITS | Clinical Summary ---
Author Organization [facility] Address [address] [place] [address] Care Team Providers Care Sander Portable Machine Name Role Phone Ashwin Lawler MD Primary Care Provider [phone] Allergies No known active allergies Medications metFORMIN [...] mouth daily 90 tablet 3 3 Active Additional Information Patient not taking.Reported on 12/09/2024 rosuvastatin (CRESTOR) 5 mg tablet Take 1 tablet (5 mg total) by mouth daily 3 Active clopidogreL (PLAVIX) 75 mg tablet Take 1 tablet (75 mg total) by mouth daily 30 tablet 11 3 Active empagliflozin (JARDIANCE) 10 mg tablet Take 1 tablet (10 mg total) by mouth daily 5 Active Active Problems Problem Noted Date Diagnosed Date Status post insertion of drug eluting coronary a rtery stent 04/05/2023 Coronary artery disease invo lving [place] coronary artery of [place] heart without angina pectoris 08/24/2022 Cardiomyopathy, ischemic 08/24/2022 Encounters Date Type Department Care Team Description 12/09/2024 10:00 AM CDT Office Visit [facility] [address] [place] [address] Becki Sweet NP Cardiomyopathy, ischemic; Coronary artery disease involving [place] coronary artery of [place] heart without angina pectoris; Hospital discharge follow-up 10/14/2024 Orders Only [facility] [address] [place] [address] Patric Thomas MD from Last 3 Months Surgical History Surgery Date Site/Laterality Comments CORONARY ARTERY BYPASS GRAFT HERNIA REPAIR LAPAROSCOPIC GASTRIC BANDING Medical History Medical History Date Comments Hx Other Medical DJD HTN (hypertension) CAD (coronary artery disease) HLD (hyperlipidemia) DM (diabetes mellitus) Family History Medical History Relation Name Comments [...] on file 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 Gender Identity Not on file Sexual Orientation Not on file Obstetrics History Last Filed Vital Signs Vital Sign Reading Time Taken Comments Blood Pressure 116/58 12/09/2024 10:00 AM CDT Pulse 87 12/09/2024 10:00 AM CDT Temperature 36.7 C (98.1 F) 03/10/2023 7:38 AM EARRINGS FABRICATOR Respiratory Rate 16 12/09/2024 10:00 AM CDT Oxygen Saturation 99% 12/09/2024 10:00 AM CDT Inhaled Oxygen Concentration - - Weight 77.6 kg (171 lb) 12/09/2024 10:00 AM CDT Height 182.9 cm (6') 12/09/2024 10:00 AM CDT Body Mass Index 23.19 12/09/2024 10:00 AM CDT Plan of Treatment Health Maintenance [...] 11/30/2030, 03/24/2020 Medical Devices Implanted Type Area Transfill Technician Device Identifier Shelf Expiration Date Model / Serial / Lot [employer] Osmar Stent Drug Eluting S Megatron Mr [id number] - S0 - [id number] Implanted:Qty : 1 on 03/10/2023 by Sal Erazo MD at [facility] Stent Left: Circumflex Coronary Artery [employer] Osmar 10/30/2024 [id number] / 0 / [id number] [employer] Osmar Angio-Seal Vip 6fr Closere Device [id number] - S0 - [id number] Implanted:Qty : 1 on 03/10/2023 by Sal Erazo MD at [facility] Vascular Closure Device Right: Femoral [employer] Osmar 09/22/2023 [id number] / [id number] / [id number] Procedures Procedure Name Priority Date/Time Associated Diagnosis Comments POCT LIPID PANEL Routine 12/09/2024 9:59 AM CDT Coronary artery disease involving [place] coronary artery of [place] heart without angina pectoris CARDIOLOGY DOCUMENT SCAN Routine 10/06/2024 2:[address] CHEST ABDOMEN PELVIS WO CONTRAST ED 12/10/2018 10:11 PM CDT from Last 3 Months or Most Recently Relevant to Health Maintenance Results * POCT lipid panel (12/09/2024 9:59 AM CDT) Cholesterol, POC 107 <200 MG/DL HDL, POC 40 >=40 mg/dL Triglycerides, POC 49 <=149 mg/dL LDL Cholesterol POC 57 <=129 mg/dL Chol/HDL Ratio, POC 1.4 NONE Non-HDL Cholesterol, POC 67 NONE mg/dL Cholesterol Total, POC 107 30 - 199 mg/dL Capillary blood 12/09/2024 9 :59 AM CDT us Becki Sweet NP POINT OF CARE TEST ORDERA BLES Final Result * Cardiology Document Scan (10/06/2024 2:29 PM CDT) Anatomical Region Laterality Modality Other us Patric Thomas MD CV CARDIAC SERVICES PROC EDURES Final Result * CT Chest Abdomen Pelvis WO Contrast (12/10/2018 10:11 PM CDT) Anatomical Region Laterality Modality Body N/A Computed Tomogra phy 12/10/2018 10:2 8 PM CDT Addenda Addendum by David Thibodeaux MD on 04/08/2019 3:49 PM EARRINGS FABRICATOR Follow up thyroid FNA completed 02-20-19 (scanned [...] Maintenance Insurance [employer] CHOICE MEDICARE PPO MEDICARE [facility] AETNA SIGNATURE [employer] CHOICE MEDICARE PPO Advance Directives For more information, please contact: [phone] * Full Code (Latest Code Status on File) Date Activated Date Inactivated Comments 03/10/2023 10:16 AM 03/10/2023 5:27 PM Care Teams Sander Portable Machine Relationship Specialty Start Date End Date Ashwin Lawler MD [address] [place] [address] [place] [id number] PCP - General Family Medicine 08/21/22
--- OUTSIDE RECORDS SUMMARY | 2024-12-10 16:47 | XMS_ITS | Clinical Summary ---
Author Organization [facility] Address [address] [place] [address] Phone Care Team Providers Care Social Services Manager Name Role Phone Unavailable Primary Care [...]
--- OUTSIDE RECORDS SUMMARY | 2024-12-10 16:47 | XMS_ITS | Encounter Summary ---
Author Organization [employer] Address [address] [place] [address] Care Team Providers Care Gate Attendant Name Role Phone Unavailable Primary Care Provider Unavailabl e Encounter Details Date Type Department Care Team (Late st Contact Info) Description 06/06/2005 Outpatient Historical [facility] [address] 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
--- OUTSIDE RECORDS SUMMARY | 2024-12-10 16:47 | XMS_ITS | Encounter Summary ---
Author Organization [employer] Address [address] [place] [address] Care Team Providers Care Car Checker Name Role Phone Unavailable Primary Care Provider Unavailabl e Encounter Details Date Type Department Care Team (Latest Contact Info) Description 06/06/2005 Inpatient Historical HIS PATIENT IN A BED Patric Thomas MD [address] [address] [facility] ([facility]) (Primary Dx) Social History Tobacco Use Types Packs/Day Years Used Date Smoking Tobacco: Never Assessed Sex and Gender Information Value Date Recorded Sex Assigned at Not on file Legal Sex Male 4:42 AM CLIMATOLOGIST Gender Identity Not on file Sexual Orientation Not on file documented as of this encounter Plan of Treatment Not on file documented as of this encounter Procedures Procedure Name Priority Date/Time Associated Diagnosis Comments POC GLUCOSE Routine 06/09/2005 6:58 AM CLIMATOLOGIST POC GLUCOSE Routine 06/08/2005 10:11 PM CLIMATOLOGIST POC GLUCOSE Routine 06/08/2005 4:29 PM CLIMATOLOGIST POC GLUCOSE Routine 06/08/2005 11:22 AM CLIMATOLOGIST POC GLUCOSE Routine 06/08/2005 6:54 AM CLIMATOLOGIST CBC WITH DIFFERENTIAL Routine 06/08/2005 5:05 AM CLIMATOLOGIST CBC WITH DIFFERENTIAL Routine 06/08/2005 5:05 AM CLIMATOLOGIST MAGNESIUM LEVEL Routine 06/08/2005 5:05 AM CLIMATOLOGIST BASIC METABOLIC PANEL Routine 06/08/2005 5:05 AM CLIMATOLOGIST POC GLUCOSE Routine 06/07/2005 9:14 PM CLIMATOLOGIST CBC WITH DIFFERENTIAL Routine 06/07/2005 5:12 PM CLIMATOLOGIST CBC WITH DIFFERENTIAL Routine 06/07/2005 5:12 PM CLIMATOLOGIST POC GLUCOSE Routine 06/07/2005 4:33 PM CLIMATOLOGIST POC GLUCOSE Routine 06/07/2005 11:44 AM CLIMATOLOGIST CBC WITH DIFFERENTIAL Routine 06/07/2005 5:36 AM CLIMATOLOGIST CBC WITH DIFFERENTIAL Routine 06/07/2005 5:36 AM CLIMATOLOGIST BASIC METABOLIC PANEL Routine 06/07/2005 5:36 AM CLIMATOLOGIST POC GLUCOSE Routine 06/07/2005 5:31 AM CLIMATOLOGIST CK TOTAL, RELATIVE INDEX Routine 06/07/2005 4:10 AM CLIMATOLOGIST CKMB W/REFLEX CK Routine 06/07/2005 4:10 AM CLIMATOLOGIST TROPONIN (W/REFLEX CKMB/CK) Routine 06/07/2005 4:10 AM CLIMATOLOGIST MAGNESIUM LEVEL Routine 06/07/2005 4:10 AM CLIMATOLOGIST POC GLUCOSE Routine 06/07/2005 12:40 AM CLIMATOLOGIST CK TOTAL, RELATIVE INDEX Routine 06/06/2005 11:30 PM CLIMATOLOGIST CKMB W/REFLEX CK Routine 06/06/2005 11:3 0 PM CLIMATOLOGIST CBC WITH DIFFERENTIAL Routine 06/06/2005 11:30 PM CLIMATOLOGIST CBC WITH DIFFERENTIAL Routine 06/06/2005 11:30 PM CLIMATOLOGIST MAGNESIUM LEVEL Routine 06/06/2005 11:30 PM CLIMATOLOGIST LIPID PANEL Routine 06/06/2005 11:30 PM CLIMATOLOGIST COMPREHENSIVE METABOLIC PANEL Routine 06/06/2005 11:30 PM CLIMATOLOGIST POC GLUCOSE Routine 06/06/2005 8:43 PM CLIMATOLOGIST documented in this encounter Results * (ABNORMAL) POC GLUCOSE (06/09/2005 6:58 AM CLIMATOLOGIST) GLUCOSE POC 214(H) 65 - 109 mg/dL INTERFACE SYSTEM 06/09/2005 6:58 AM CLIMATOLOGIST Patric Thomas MD POINT OF CARE TESTING Fin al Result Performing Organization Address [facility] Phone Number INTERFACE SYSTEM Refer to clinic/hospital department * (ABNORMAL) POC GLUCOSE (06/08/2005 10:11 PM CLIMATOLOGIST) GLUCOSE POC 262(H) 65 - 109 mg/dL INTERFACE SYSTEM 06/08/2005 10:1 1 PM CLIMATOLOGIST Patric Thomas MD POINT OF CARE TESTING Fin al Result Performing Organization Address [facility] Phone Number INTERFACE SYSTEM Refer to clinic/hospital department * (ABNORMAL) POC GLUCOSE (06/08/2005 4:29 PM CLIMATOLOGIST) GLUCOSE POC 268(H) 65 - 109 mg/dL INTERFACE SYSTEM 06/08/2005 4:29 PM CLIMATOLOGIST Patric Thomas MD POINT OF CARE TESTING Fin al Result Performing Organization Address [facility] de Phone Number INTERFACE SYSTEM Refer to clinic/hospital department * (ABNORMAL) POC GLUCOSE (06/08/2005 11:22 AM CLIMATOLOGIST) GLUCOSE POC 253(H) 65 - 109 mg/dL INTERFACE SYSTEM 06/08/2005 11:2 2 AM CLIMATOLOGIST Patric Thomas MD POINT OF CARE TESTING Fin al Result Performing Organization Address [facility] de Phone Number INTERFACE SYSTEM Refer to clinic/hospital department * (ABNORMAL) POC GLUCOSE (06/08/2005 6:54 AM CLIMATOLOGIST) GLUCOSE POC 214(H) 65 - 109 mg/dL INTERFACE SYSTEM 06/08/2005 6:54 AM CLIMATOLOGIST Patric Thomas MD POINT OF CARE TESTING Fin al Result Performing Organization Address [facility] de Phone Number INTERFACE SYSTEM Refer to clinic/hospital department * CBC WITH DIFFERENTIAL (06/08/2005 5:05 AM CLIMATOLOGIST) NEUTROPHILS 57 45 - 70 % INTERFAC [...] 0.20 K/uL INTERFACE SYSTEM 06/08/2005 5:05 AM CLIMATOLOGIST Patric Thomas MD HEMATOLOGY ORDERABLES Fin al Result Performing Organization Address [facility] de Phone Number INTERFACE SYSTEM Refer to clinic/hospital department * CBC WITH DIFFERENTIAL (06/08/2005 5:05 AM CLIMATOLOGIST) WBC 7.5 4.0 - 9.8 K/uL INTERFACE [...] 12.4 fL INTERFACE SYSTEM 06/08/2005 5:05 AM CLIMATOLOGIST Patric Thomas MD HEMATOLOGY ORDERABLES Fin al Result Performing Organization Address [facility] Phone Number INTERFACE SYSTEM Refer to clinic/hospital department * MAGNESIUM LEVEL (06/08/2005 5:05 AM CLIMATOLOGIST) MAGNESIUM 1.9 1.5 - 2.5 mg/dL INTERFACE SYSTEM 06/08/2005 5:05 AM CLIMATOLOGIST Patric Thomas MD CHEMISTRY ORDERABLES Freya l Result Performing Organization Address [facility] Phone Number INTERFACE SYSTEM Refer to clinic/hospital department * (ABNORMAL) BASIC METABOLIC PANEL (06/08/2005 5:05 AM CLIMATOLOGIST) GLUCOSE 218(H) 65 - 109 mg/dL INTERFACE [...] 30 mmol/L INTERFACE SYSTEM 06/08/2005 5:05 AM CLIMATOLOGIST Patric Thomas MD CHEMISTRY ORDERABLES Freya l Result Performing Organization Address [facility] Phone Number INTERFACE SYSTEM Refer to clinic/hospital department * (ABNORMAL) POC GLUCOSE (06/07/2005 9:14 PM CLIMATOLOGIST) GLUCOSE POC 226(H) 65 - 109 mg/dL INTERFACE SYSTEM 06/07/2005 9:14 PM CLIMATOLOGIST Patric Thomas MD POINT OF CARE TESTING Fin al Result Performing Organization Address [facility] de Phone Number INTERFACE SYSTEM Refer to clinic/hospital department * CBC WITH DIFFERENTIAL (06/07/2005 5:12 PM CLIMATOLOGIST) NEUTROPHILS 64 45 - 70 % INTERFAC [...] 0.20 K/uL INTERFACE SYSTEM 06/07/2005 5:12 PM CLIMATOLOGIST Eric Carter HEMATOLOGY ORDERABLES Final Resu lt Performing Organization Address [facility] Phone Number INTERFACE SYSTEM Refer to clinic/hospital department * (ABNORMAL) CBC WITH DIFFERENTIAL (06/07/2005 5:12 PM CLIMATOLOGIST) WBC 8.5 4.0 - 9.8 K/uL INTERFACE [...] 12.4 fL INTERFACE SYSTEM 06/07/2005 5:12 PM CLIMATOLOGIST Eric Carter HEMATOLOGY ORDERABLES Final Resu lt INTERFACE SYSTEM Refer to clinic/hospital department * (ABNORMAL) POC GLUCOSE (06/07/2005 4:33 PM CLIMATOLOGIST) GLUCOSE POC 218(H) 65 - 109 mg/dL INTERFACE SYSTEM 06/07/2005 4:33 PM CLIMATOLOGIST Patric Thomas MD POINT OF CARE TESTING Fin al Result Performing Organization Address [facility] Co de Phone Number INTERFACE SYSTEM Refer to clinic/hospital department * (ABNORMAL) POC GLUCOSE (06/07/2005 11:44 AM CLIMATOLOGIST) GLUCOSE POC 271(H) 65 - 109 mg/dL INTERFACE SYSTEM 06/07/2005 11:4 4 AM CLIMATOLOGIST Patric Thomas MD POINT OF CARE TESTING Fin al Result Performing Organization Address [facility] Co de Phone Number INTERFACE SYSTEM Refer to clinic/hospital department * (ABNORMAL) CBC WITH DIFFERENTIAL (06/07/2005 5:36 AM CLIMATOLOGIST) NEUTROPHILS 73(H) 45 - 70 % INTERFAC [...] 0.20 K/uL INTERFACE SYSTEM 06/07/2005 5:36 AM CLIMATOLOGIST us Carmina Dick MD HEMATOLOGY ORDERABLES Final Resu lt INTERFACE SYSTEM Refer to clinic/hospital department * (ABNORMAL) CBC WITH DIFFERENTIAL (06/07/2005 5:36 AM CLIMATOLOGIST) WBC 9.7 4.0 - 9.8 K/uL INTERFACE [...] 12.4 fL INTERFACE SYSTEM 06/07/2005 5:36 AM CLIMATOLOGIST us Carmina Dick MD HEMATOLOGY ORDERABLES Final Resu Performing Organization Address [facility] Phone Number INTERFACE SYSTEM Refer to clinic/hospital department * (ABNORMAL) BASIC METABOLIC PANEL (06/07/2005 5:36 AM CLIMATOLOGIST) GLUCOSE 194(H) 65 - 109 mg/dL INTERFACE [...] 30 mmol/L INTERFACE SYSTEM 06/07/2005 5:36 AM CLIMATOLOGIST us Carmina Dick MD CHEMISTRY ORDERABLES Final Resul t Performing Organization Address [facility] Phone Number INTERFACE SYSTEM Refer to clinic/hospital department * (ABNORMAL) POC GLUCOSE (06/07/2005 5:31 AM CLIMATOLOGIST) GLUCOSE POC 197(H) 65 - 109 mg/dL INTERFACE SYSTEM 06/07/2005 5:31 AM CLIMATOLOGIST Patric Thomas MD POINT OF CARE TESTING Fin al Result Performing Organization Address [facility] Phone Number INTERFACE SYSTEM Refer to clinic/hospital department * (ABNORMAL) CK TOTAL, RELATIVE INDEX (06/07/2005 4:10 AM CLIMATOLOGIST) CK 2,552(H) 10 - 170 U/L INTERFACE SYSTEM CARDIAC RELATIVE INDEX 10.2(H) <=4.0 INTERFACE SYSTEM 06/07/2005 4:10 AM CLIMATOLOGIST Carmina Dick MD CHEMISTRY ORDERABLES Final Resul t Performing Organization Address [facility] Phone Number INTERFACE SYSTEM Refer to clinic/hospital department * (ABNORMAL) CKMB W/REFLEX CK (06/07/2005 4:10 AM CLIMATOLOGIST) CKMB 260.1(AA) <=6.7 ng/mL INTERFACE SYSTEM Comment:Results called to alka at 06/07/2005 5:15 AM and read back verified. CKMB INTERP See Below INTERFAC E SYSTEM Comment:Elevated CKMB,Consis tent with Myocardial Injury. 06/07/2005 4:10 AM CLIMATOLOGIST Carmina Dick MD CHEMISTRY ORDERABLES Final Resul t Performing Organization Address [facility] Phone Number INTERFACE SYSTEM Refer to clinic/hospital department * MAGNESIUM LEVEL (06/07/2005 4:10 AM CLIMATOLOGIST) MAGNESIUM 1.8 1.5 - 2.5 mg/dL INTERFACE SYSTEM 06/07/2005 4:10 AM CLIMATOLOGIST Patric Thomas MD CHEMISTRY ORDERABLES Freya l Result Performing Organization Address [facility] Phone Number INTERFACE SYSTEM Refer to clinic/hospital department * (ABNORMAL) TROPONIN (W/REFLEX CKMB/CK) (06/07/2005 4:10 AM CLIMATOLOGIST) TROPONIN T 5.35(AA) <=0.03 ng/mL INTERFACE SYSTEM Comment:Results called to Lyndsay fernandes at 06/07/2005 4:55 AM and read back verified. TROPONIN T INTERP See Below INTERFACE SYSTEM Comment:Elevated Troponin-T, Consistent with Myocardial Injury 06/07/2005 4:10 AM CLIMATOLOGIST Carmina Dick MD CHEMISTRY ORDERABLES Final Resul t Performing Organization Address [facility] Phone Number INTERFACE SYSTEM Refer to clinic/hospital department * (ABNORMAL) POC GLUCOSE (06/07/2005 12:40 AM CLIMATOLOGIST) GLUCOSE POC 226(H) 65 - 109 mg/dL INTERFACE SYSTEM 06/07/2005 12:4 0 AM CLIMATOLOGIST Patric Thomas MD POINT OF CARE TESTING Fin al Result Performing Organization Address [facility] Phone Number INTERFACE SYSTEM Refer to clinic/hospital department * (ABNORMAL) CK TOTAL, RELATIVE INDEX (06/06/2005 11:30 PM CLIMATOLOGIST) CK 3,063(H) 10 - 170 U/L INTERFACE SYSTEM CARDIAC RELATIVE INDEX 12.1(H) <=4.0 INTERFACE SYSTEM 06/06/2005 11:3 0 PM CLIMATOLOGIST Carmina Dick MD CHEMISTRY ORDERABLES Final Resul t Performing Organization Address [facility] Phone Number INTERFACE SYSTEM Refer to clinic/hospital department * (ABNORMAL) CKMB W/REFLEX CK (06/06/2005 11:30 PM CLIMATOLOGIST) CKMB 369.5(AA) <=6.7 ng/mL INTERFACE SYSTEM Comment: Results called to Hiwot at 06/07/2005 7:19 AM and read back verified. Previous specimen used; approved by floor. , (2330 from 06/06/05) CKMB INTERP See Below INTERFAC E SYSTEM Comment:Elevated CKMB,Consis tent with Myocardial Injury. 06/06/2005 11:3 0 PM CLIMATOLOGIST Carmina Dick MD CHEMISTRY ORDERABLES Final Resul t Performing Organization Address [facility] Phone Number INTERFACE SYSTEM Refer to clinic/hospital department * MAGNESIUM LEVEL (06/06/2005 11:30 PM CLIMATOLOGIST) MAGNESIUM 1.9 1.5 - 2.5 mg/dL INTERFACE SYSTEM 06/06/2005 11:3 0 PM CLIMATOLOGIST Patric Thomas MD CHEMISTRY ORDERABLES Freya l Result Performing Organization Address [facility] Phone Number INTERFACE SYSTEM Refer to clinic/hospital department * (ABNORMAL) CBC WITH DIFFERENTIAL (06/06/2005 11:30 PM CLIMATOLOGIST) NEUTROPHILS 83(H) 45 - 70 % INTERFAC [...] K/uL INTERFACE SYSTEM 06/06/2005 11:3 0 PM CLIMATOLOGIST Patric Thomas MD HEMATOLOGY ORDERABLES Fin al Result Performing Organization Address [facility] Phone Number INTERFACE SYSTEM Refer to clinic/hospital department * (ABNORMAL) CBC WITH DIFFERENTIAL (06/06/2005 11:30 PM CLIMATOLOGIST) WBC 14.5(H) 4.0 - 9.8 K/uL INTERFACE [...] fL INTERFACE SYSTEM 06/06/2005 11:3 0 PM CLIMATOLOGIST Patric Thomas MD HEMATOLOGY ORDERABLES Fin al Result INTERFACE SYSTEM Refer to clinic/hospital department * LIPID PANEL (06/06/2005 11:30 PM CLIMATOLOGIST) Pathologist [facility] LIPID PANEL COMMENT See [...] for risk classifications. 06/06/2005 11:3 0 PM CLIMATOLOGIST us Carmina Dick MD CHEMISTRY ORDERABLES Final Resul t Performing Organization Address [facility] Phone Number INTERFACE SYSTEM Refer to clinic/hospital department * (ABNORMAL) COMPREHENSIVE METABOLIC PANEL (06/06/2005 11:30 PM CLIMATOLOGIST) GLUCOSE 225(H) 65 - 109 mg/dL INTERFACE [...] mmol/L INTERFACE SYSTEM 06/06/2005 11:3 0 PM CLIMATOLOGIST us Carmina Dick MD CHEMISTRY ORDERABLES Final Resul t Performing Organization Address [facility] de Phone Number INTERFACE SYSTEM Refer to clinic/hospital department * (ABNORMAL) POC GLUCOSE (06/06/2005 8:43 PM CLIMATOLOGIST) GLUCOSE POC 247(H) 65 - 109 mg/dL INTERFACE SYSTEM 06/06/2005 8:43 PM CLIMATOLOGIST us Patric Thomas MD POINT OF CARE TESTING Ceferino al Result INTERFACE SYSTEM Refer to clinic/hospital department documented in this encounter Visit Diagnoses Diagnosis Acute myocardial infarction of other anterior wall, initial episode of care ([facility])- Primary Acute myocardial infarction of other anterior wall, initial episode of care documented in this encounter
--- NOTE | 2024-12-10 16:55 | PC.NURSE ---
Pt. unable to safely stand on scale in triage room d/t symptomatic hypotension.
--- NOTE | 2024-12-10 18:02 | ECG_ITS ---
Test Date: 2024-12-10 19:15:48 Measurements Intervals [place] Rate: 92 P: 41 NH: 149 QRS: -34 QRSD: 112 T: 117 QT: 351 QTc: 436 Interpretive Statements SINUS RHYTHM WITH OCCASIONAL SUPRAVENTRICULAR PREMATURE COMPLEXES LEFT AXIS DEVIATION INTRAVENTRICULAR CONDUCTION DELAY ANTERIOR INFARCT, AGE INDETERMINATE INFERIOR INFARCT, AGE INDETERMINATE BORDERLINE T WAVE ABNORMALITY- HIGH LATERAL LEADS ABNORMAL ECG Compared to ECG 10/04/2024 10:33:13 NO SIGNIFICANT CHANGE Electronically Signed On 12-10-2024 19:19:51 CDT by Leon Roldan D.O.
[2024-12-10 18:35] LABS: Hematocrit 35.1 % (42.0-52.0); Hemoglobin 11.5 g/dL (14.0-18.0); Immature Granulocyte Percent A 0.9 % (0-0.5); Lymphocytes Absolute Auto 0.57 K/mm3 (0.9-3.2); Mean Corpuscular HGB Conc 32.8 g/dl (32-36); Mean Corpuscular Hemoglobin 29.5 pg (26-34); Mean Corpuscular Volume 90.0 fl (80-100); Nucleated Red Blood Cells Absolute Auto 0.000 K/mm3 (0.0-0.012); Nucleated Red Blood Cells Perc 0.0 % (0.0-0.2); Platelet Count Result 290 k/mm3 (150-375); Red Blood Count 3.90 M/mm3 (4.6-6.20); White Blood Count 18.5 K/mm3 (4.5-10.0)
[2024-12-10 18:47] LABS: Alanine Aminotransferase 13 U/L (6-50); Albumin Level 3.9 g/dL (3.5-5.1); Alkaline Phosphatase 96 U/L (38-126); Anion Gap 10 mmol/L (4-12); Aspartate Amino Transferase 25 U/L (17-59); Bilirubin,Total 1.4 mg/dL (0.2-1.3); Blood Urea Nitrogen 24 mg/dL (9-20); Calcium 9.3 mg/dL (8.4-10.2); Carbon Dioxide 27 mmol/L (22-30); Chloride 95 mmol/L (98-107); Estimated CRCL calculation 61 ml/min; Estimated Glomerular Filt Rate > 60; Glucose 144 mg/dL (65-110); INR 1.2; Potassium 5.0 mmol/L (3.4-5.0); Prothrombin Time 15.8 Seconds (11.1-14.7); Sodium 132 mmol/L (137-145); Total Protein 8.3 g/dL (6.3-8.2)
[2024-12-10 18:48] LABS: Partial Thromboplastin Time 32.9 Seconds (22.3-36.8)
[2024-12-10] MEDS: CEFEPIME 2 GM in SODIUM CHLORIDE 0.9% IV 50 ML 100 ML IVPB (18:48)
[2024-12-10] MEDS: LACTATED RINGERS 1,000 ML 999 ML IV CONT ×2 (18:55)
[2024-12-10 19:04] LABS: CRP 21.1 mg/dL (<1.0)
--- NOTE | 2024-12-10 19:15 | ED.GENADULT ---
HPI - General Adult General Chief complaint: Extremity Problem,Nontraumatic Stated complaint: bilateral foot wounds Time Seen by Provider: 12/10/24 17:55 History of Present Illness HPI narrative: This is a 69-year-old male presenting ED with concerns about infected wounds on his feet. Patient is has chronic wounds that are being managed by her clinic. However over the weekend they started to develop a foul smell and discharge. Patient also notes that he is having night sweats, fatigue, nausea, diarrhea and dizziness. Patient denies chest pain shortness of breath abdominal pain Related Data Home Medications ?Medication ?Instructions ?Recorded ?Confirmed ?Last Taken ?Type acetaminophen 500 mg tablet 1,000 mg PO Q6H PRN pain 08/27/24 10/04/24 10/03/24 History (Acetaminophen Extra Strength) meclizine 50 mg tablet (Antivert) 50 mg PO BID 08/27/24 10/04/24 10/03/24 History metformin 500 mg tablet 500 mg PO BID 08/27/24 10/04/24 10/03/24 History Allergies Allergy/AdvReac Type Severity Reaction Status Date / Time No Known Allergies Allergy Verified 12/10/24 16:55 [facility] Past Medical History Medical History Calf pain Non-pressure chronic ulcer of other part of right foot with necrosis of muscle Heel ulcer due to DM History of colon cancer 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 GERD (gastroesophageal reflux disease) Carpal tunnel syndrome Surgical History Surgical History History of incision and drainage Complex I&D Right foot infected diabetic foot ulcer measuring approximately 5x4cm. on 12/19/21 Status post debridement (12/2020) Right foot abscess, osteomyelitis. History of coronary artery stent placement History of cardiac catheterization History of colonoscopy with polypectomy History of repair of hiatal hernia (2001) History of coronary artery bypass graft History of carpal tunnel release History of arthroscopy of right knee History of hernia repair (2019) Finger amputee Right 2nd finger secondary to crush injury. History of right hemicolectomy with ileocolic anastomsis in 2019 Family History Family History Sibling Family history of malignant neoplasm Father Family history of chronic obstructive pulmonary disease Hypertension Heart disease Mother Hypertension Cancer Sibling Cancer Sibling Cancer Sibling Cancer Social History Social History Social History: The patient is and lives with his and 1 son in [place]. They have 4 children. 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 No alcohol or illicit substance abuse. Surrogate medical decision maker: Tash Orantes, spouse. Code status: Full code. Years smoked: 10 Smoking status: Former smoker Alcohol intake: never Substance use: never Substance use type: does not use Do You Feel Safe in your Home?: Yes Lack of Transportation: No Lack of Food: Never True Current Housing: I Have Housing Concerned About Future Housing: No Difficulty Paying Gas/Electric Bills: No Difficulty Paying for Meds: No Currently Unemployed: No Education: High School Diploma/GED Difficulty w/ Childcare or Family Care: No Living arrangements: with family Occupation/Education: retired Gender identity (if verbalized by the patient): Male Sexual Orientation (if Verbalized by the Patient): Straight or Heterosexual Spiritual care concerns: No Exam Narrative: APPEARANCE: No apparent distress. Head: atraumatic. EYES: EOMI, NOSE: Atraumatic NECK: Trachea midline RESPIRATORY: No increased rate of breathing, CTAB CARDIOVASCULAR: RRR, No peripheral edema, +2 pules ABDOMINAL: Non-distended soft nontender MUSCULOSKELETAl: No obvious deformities NEURO: Alert. Moving 4/4 extremities SKIN:: Left foot: Deep heel wound on the left foot with foul smell, Right foot: Ulceration at the base of the great toe note signs of infection PSYCHIATRIC: Normal affect Course Vital Signs Vital signs: Vital Signs Temperature 98.4 F 12/10/24 16:48 Pulse Rate 90 12/10/24 16:48 Respiratory Rate 16 12/10/24 16:48 Blood Pressure 78/49 L 12/10/24 16:48 Pulse Oximetry 99 12/10/24 16:48 Oxygen Delivery Room Air 12/10/24 16:48 Temperature 99.9 F H 12/10/24 17:25 Pulse Rate 88 12/10/24 18:05 Respiratory Rate 30 H 12/10/24 18:05 Blood Pressure 163/66 H 12/10/24 18:05 Pulse Oximetry 100 12/10/24 18:05 Oxygen Delivery Room Air 12/10/24 17:25 Medical Decision Making MDM Narrative Medical decision making narrative: -Course: 69-year-old male presenting with concerns about diabetic foot infection. Triage blood pressure was 78/49 although this improved to 129/79 w/o intervention. Patient given 30 cc/kilogram bolus and started on broad-spectrum antibiotics per the diabetic foot infection order set. Cultures obtained. White count of 18. patient is febrile at 100.5. Lactic 1.5. CRP elevated 21.1. X-rays showed deep erosions w/ tracking air near his calcaneus which would be expected due to his open wounds. The air on x-ray is more likely from the open wound as opposed to a necrotizing soft tissue infection. Case was discussed with Dr. Calvo. Patient will be admitted to hospital for IV antibiotics and surgical evaluation. -DDX includes but is not limited to: Diabetic foot infection, sepsis, Vital Signs Vital Signs: Vital Signs Temperature 98.4 F 12/10/24 16:48 Pulse Rate 90 12/10/24 16:48 Respiratory Rate 16 12/10/24 16:48 Blood Pressure 78/49 L 12/10/24 16:48 Pulse Oximetry 99 12/10/24 16:48 Oxygen Delivery Room Air 12/10/24 16:48 Temperature 99.9 F H 12/10/24 17:25 Pulse Rate 88 12/10/24 18:05 Respiratory Rate 30 H 12/10/24 18:05 Blood Pressure 163/66 H 12/10/24 18:05 Pulse Oximetry 100 12/10/24 18:05 Oxygen Delivery Room Air 12/10/24 17:25 Lab Data 12/10/24 18:17 12/10/24 18:17 Labs: Lab Results 12/10/24 Range/Units 18:17 WBC 18.5 H (4.5-10.0) K/mm3 RBC 3.90 L (4.6-6.20) M/mm3 Hgb 11.5 L (14.0-18.0) g/dL Hct 35.1 L (42.0-52.0) % MCV 90.0 (80-100) fl MCH 29.5 (26-34) pg MCHC 32.8 (32-36) g/dl RDW 12.1 (11.5-14.5) % Plt Count 290 (150-375) k/mm3 MPV 9.5 (7.4-10.4) fl Immature Gran % (Auto) 0.9 H (0-0.5) % Neut % (Auto) 89.5 H (45.5-73.1) % Lymph % (Auto) 3.1 L (18.3-44.2) % [place] % (Auto) 6.3 (2.6-8.5) % Eos % (Auto) 0.0 (0-4.4) % Baso % (Auto) 0.2 (0.2-1.2) % Lymph # (Auto) 0.57 L (0.9-3.2) K/mm3 [place] # (Auto) 1.2 H (0.1-0.6) K/mm3 Eos # (Auto) 0.0 (0-0.3) K/mm3 Baso # (Auto) 0.0 (0.0-0.1) K/mm3 Abs Immat Gran (auto) 0.16 H (0.00-0.031) K/mm3 Absolute Neuts (auto) 16.6 H (1.3-6.7) K/mm3 Absolute Nucleated RBC 0.000 (0.0-0.012) K/mm3 Nucleated RBC % 0.0 (0.0-0.2) % PT 15.8 H (11.1-14.7) Seconds INR 1.2 APTT 32.9 (22.3-36.8) Seconds Sodium 132 L (137-145) mmol/L Potassium 5.0 (3.4-5.0) mmol/L Chloride 95 L (98-107) mmol/L Carbon Dioxide 27 (22-30) mmol/L Anion Gap 10 (4-12) mmol/L BUN 24 H (9-20) mg/dL Creatinine 1.09 (0.7-1.3) mg/dL Estim Creat Clear Calc 61 ml/min Estimated GFR > 60 (59 - ) Glucose 144 H (65-110) mg/dL Lactic Acid 1.5 (0.7-2.0) mmol/L Calcium 9.3 (8.4-10.2) mg/dL Total Bilirubin 1.4 H (0.2-1.3) mg/dL AST 25 (17-59) U/L ALT 13 (6-50) U/L Alkaline Phosphatase 96 (38-126) U/L C-Reactive Protein 21.1 H (<1.0) mg/dL Total Protein 8.3 H (6.3-8.2) g/dL Albumin 3.9 (3.5-5.1) g/dL Discharge Plan Discharge Clinical Impression: Infected pressure ulcer, Leukocytosis Patient Disposition: Still a Patient Condition: Stable Patient Language: [place] Prescriptions: No Action meclizine [Antivert] 50 mg tablet 50 mg PO BID acetaminophen [Acetaminophen Extra Strength] 500 mg tablet 1,000 mg PO Q6H PRN (Reason: pain) metformin 500 mg tablet 500 mg PO BID carvedilol [Coreg] 12.5 mg Tablet 12.5 mg PO Q12HR Qty: 60 0RF spironolactone 25 mg Tablet 25 mg PO QAM Qty: 30 0RF Entresto 24-26 mg Tablet 1 tablet PO Q12HR Qty: 60 0RF Jardiance 10 mg tablet 10 mg PO DAILY 30 Days Qty: 30 6RF (DME) Dexcom G7 Sensor Device See Rx Instructions .Route Qty: 3 5RF Rx Instructions: Change sensor every 10 days (DME) Dexcom G7 Psychiatric Specialist Misc See Rx Instructions .Route Qty: 1 0RF Rx Instructions: As directed rosuvastatin 5 mg tablet 5 mg PO DAILY Qty: 90 1RF insulin glargine [Lantus Solostar U-100 Insulin] 100 unit/mL (3 mL) insulin pen 18 unit subcut QPM Qty: 15 3RF Follow-up/Referrals: Ashwin Lawler MD [Primary Care Provider, Family Practice]
--- NOTE | 2024-12-10 19:22 | PC.NURSE ---
Received report from MARCIAL Lemus for cont. of care. Pt AOx4 lying on stretcher, respirations even and unlabored. Pt requesting blanket at this time, and started on ABX refer to MAR.
[2024-12-10] MEDS: LACTATED RINGERS 400 ML 999 ML IV CONT (19:30)
[2024-12-10] MEDS: metroNIDAZOLE 500 MG/ISO 100ML 500 MG/100 ML BAG 100 MG IVPB (19:30)
[2024-12-10] MEDS: ACETAMINOPHEN 500 MG TABLET 1000 MG PO (19:48)
--- NOTE | 2024-12-10 19:49 | PC.NURSE ---
MD Hernadez made aware of elevated temp, refer to MAR for medication administration. Pt provided with urinal for urine sample.
--- NOTE | 2024-12-10 20:46 | PC.NURSE ---
pt provided with urinal for urine sample.
[2024-12-10] MEDS: VANCOMYCIN 1,250 MG/NS 250 ML 1,250 MG/250 ML BAG 166.67 MG IVPB (20:51)
--- NOTE | 2024-12-10 21:04 | PC.NURSE ---
pt unable to provided urine, bladder scan showing more than 430ml. Pt straight catheter per MD order.
--- NOTE | 2024-12-10 21:19 | PM.IMHP ---
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 GERD (gastroesophageal reflux disease) Carpal tunnel syndrome Surgical History Surgical History History of incision and drainage Complex I&D Right foot infected diabetic foot ulcer measuring approximately 5x4cm. on 12/19/21 Status post debridement (12/2020) Right foot abscess, osteomyelitis. History of coronary artery stent placement History of cardiac catheterization History of colonoscopy with polypectomy History of repair of hiatal hernia (2001) History of coronary artery bypass graft History of carpal tunnel release History of arthroscopy of right knee History of hernia repair (2018) Finger amputee Right 2nd finger secondary to crush injury. History of right hemicolectomy with ileocolic anastomsis in 2019 Family History Family History Sibling Family history of malignant neoplasm Father Family history of chronic obstructive pulmonary disease Hypertension Heart disease Mother Hypertension Cancer Sibling Cancer Sibling Cancer Sibling Cancer Social History Social History Social History: The patient is and lives with his and 1 son in [place]. They have 4 children. 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 No alcohol or illicit substance abuse. Surrogate medical decision maker: Tash Orantes, spouse. Code status: Full code. Years smoked: 10 Smoking status: Former smoker Alcohol intake: never Substance use: never Substance use type: does not use Do You Feel Safe in your Home?: Yes Lack of Transportation: No Lack of Food: Never True Current Housing: I Have Housing Concerned About Future Housing: No Difficulty Paying Gas/Electric Bills: No Difficulty Paying for Meds: No Currently Unemployed: No Education: High School Diploma/GED Difficulty w/ Childcare or Family Care: No Living arrangements: with family Occupation/Education: retired Gender identity (if verbalized by the patient): Male Sexual Orientation (if Verbalized by the Patient): Straight or Heterosexual Spiritual care concerns: No Meds Home Medications and Allergies Home Medications ?Medication ?Instructions ?Recorded ?Confirmed ?Type Jardiance 10 mg tablet 10 mg PO DAILY 30 days #30 tabs 06/18/24 10/04/24 Rx (empagliflozin) acetaminophen 500 mg tablet 1,000 mg PO Q6H PRN pain 08/27/24 10/04/24 History (Acetaminophen Extra Strength) meclizine 50 mg tablet (Antivert) 50 mg PO BID 08/27/24 10/04/24 History metformin 500 mg tablet 500 mg PO BID 08/27/24 10/04/24 History 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 sensor (Dexcom G7 #3 ea 09/13/24 10/04/24 Rx Sensor device) 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,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 repair technician,cont #1 ea 09/13/24 10/04/24 Rx (Dexcom G7 Battery Tester Field) rosuvastatin 5 mg tablet 5 mg PO DAILY #90 tabs 10/03/24 10/04/24 Rx carvedilol 12.5 mg tablet (Coreg) 12.5 mg PO Q12HR #60 tabs 10/06/24 Rx sacubitril 24 mg-valsartan 26 mg 1 tablet PO Q12HR #60 tabs 10/06/24 Rx tablet (Entresto) spironolactone 25 mg tablet 25 mg PO QAM #30 tabs 10/06/24 Rx insulin glargine 100 unit/mL (3 18 unit (0.18 mL) subcut QPM #15 mL 11/15/24 Rx mL) subcutaneous pen (Lantus Solostar U-100 Insulin) Allergies Allergy/AdvReac Type Severity Reaction Status Date / Time No Known Allergies Allergy Verified 12/10/24 16:55 Vital Signs Vital Signs - 24 hr 12/10/24 16:48 12/10/24 17:25 12/10/24 18:05 Temperature 36.9 C 37.7 C H Pulse Rate 90 90 88 Respiratory Rate 16 14 30 H Blood Pressure 78/49 L 129/87 163/66 H Pulse Oximetry 99 97 100 Oxygen Delivery Room Air Room Air 12/10/24 19:32 Temperature 38.1 C H Pulse Rate 94 Respiratory Rate 18 Blood Pressure 144/70 H Pulse Oximetry 97 Oxygen Delivery H&P: Results Labs Labs: Short CBC 12/10/24 Range/Units 18:17 WBC 18.5 H (4.5-10.0) K/mm3 Hgb 11.5 L (14.0-18.0) g/dL Hct 35.1 L (42.0-52.0) % Plt Count 290 (150-375) k/mm3 BMP 12/10/24 18:17 Sodium 132 L Potassium 5.0 Chloride 95 L Carbon Dioxide 27 BUN 24 H Creatinine 1.09 Glucose 144 H Calcium 9.3 Liver Function 12/10/24 Range/Units 18:17 Total Bilirubin 1.4 H (0.2-1.3) mg/dL AST 25 (17-59) U/L ALT 13 (6-50) U/L Alkaline Phosphatase 96 (38-126) U/L Albumin 3.9 (3.5-5.1) g/dL
[2024-12-10 21:36] LABS: Add Urine Microscopic? YES; Appearance Urine Clear (Clear); Glucose Urine UA 3+ mg/dL (Negative); Leukocyte Esterase Ur Negative LEU/UL (Negative); Need Manual Microscopic Reviewed; Nitrate Urine Negative (Negative); Non Pathogenic Casts >20; Specific Grav Ur 1.024 (1.001-1.035)
--- NOTE | 2024-12-10 22:49 | WNDPHOTO ---
PHOTO ONLY - See Nursing Notes and/ or assessments for documentation.
--- NOTE | 2024-12-10 22:54 | WNDPHOTO ---
PHOTO ONLY - See Nursing Notes and/ or assessments for documentation.
--- NOTE | 2024-12-10 22:55 | WNDPHOTO ---
PHOTO ONLY - See Nursing Notes and/ or assessments for documentation.
--- NOTE | 2024-12-10 22:56 | WNDPHOTO ---
PHOTO ONLY - See Nursing Notes and/ or assessments for documentation.
[2024-12-10 23:06] LABS: Procalcitonin 1.8 ng/mL
--- NOTE | 2024-12-10 23:07 | ADMGEN ---
This patient, Ramirez Orantes Jr., was admitted to [facility] Surg Room 331-01. Patient/family oriented to hospital policies and general routines including ID bracelet, bed and alarms, visiting hours, pain management, procedures, bathroom and other care routines, personal items, smoking policy, room service/diet, and visiting hours. Information on how to activate the Rapid Response Team has been discussed. Patient/Family are encouraged to report perceived risks to care and to ask questions if they do not understand what they are told or what they should do.
[2024-12-11] VITALS (11 sets, daily range): BP systolic 127–139; BP diastolic 61–66; PULSE 74–101; RESP 16–18; TEMP 36.2–37.7; O2SAT 92–99
[2024-12-11] MEDS: metroNIDAZOLE 500 MG/ISO 100ML 500 MG/100 ML BAG 100 MG IVPB ×3 (05:07→21:44)
[2024-12-11] MEDS: CEFEPIME 2 GM in SODIUM CHLORIDE 0.9% IV 50 ML 100 ML IVPB ×2 (05:16→16:57)
[2024-12-11 06:42] LABS: Hematocrit 28.3 % (42.0-52.0); Hemoglobin 9.1 g/dL (14.0-18.0); Immature Granulocyte Percent A 0.6 % (0-0.5); Lymphocytes Absolute Auto 0.55 K/mm3 (0.9-3.2); Mean Corpuscular HGB Conc 32.2 g/dl (32-36); Mean Corpuscular Hemoglobin 29.3 pg (26-34); Mean Corpuscular Volume 91.0 fl (80-100); Nucleated Red Blood Cells Absolute Auto 0.000 K/mm3 (0.0-0.012); Nucleated Red Blood Cells Perc 0.0 % (0.0-0.2); Platelet Count Result 223 k/mm3 (150-375); Red Blood Count 3.11 M/mm3 (4.6-6.20); White Blood Count 11.7 K/mm3 (4.5-10.0)
[2024-12-11 07:06] LABS: Alanine Aminotransferase 12 U/L (6-50); Albumin Level 2.8 g/dL (3.5-5.1); Alkaline Phosphatase 85 U/L (38-126); Anion Gap 2 mmol/L (4-12); Aspartate Amino Transferase 25 U/L (17-59); Bilirubin,Total 0.6 mg/dL (0.2-1.3); Blood Urea Nitrogen 22 mg/dL (9-20); Calcium 8.4 mg/dL (8.4-10.2); Carbon Dioxide 27 mmol/L (22-30); Chloride 99 mmol/L (98-107); Estimated CRCL calculation 90 ml/min; Estimated Glomerular Filt Rate > 60; Glucose 195 mg/dL (65-110); Magnesium 1.6 mg/dL (1.6-2.3); Potassium 4.2 mmol/L (3.4-5.0); Sodium 128 mmol/L (137-145); Total Protein 6.1 g/dL (6.3-8.2)
[2024-12-11 07:15] LABS: Procalcitonin 1.4 ng/mL
[2024-12-11 07:22] LABS: CRP 20.1 mg/dL (<1.0)
[2024-12-11 07:38] LABS: Hemoglobin A1C 8.5 % (<5.7)
--- NOTE | 2024-12-11 07:39 | P.HP_ITS ---
H&P: HPI History of Present Illness Date/Time: 12/11/24 07:39 Chief Complaint: Extremity Problem Narrative: Ramirez Orantes is a 69 year old Male with a past medical history of T2DM, CAD s/p stents and CABG , and Ischemic cardiomyopathy who presents to the hospital for wounds on both of his feet. Patient states that he has a heel wound on his left heel that has been present for 2 years. Also endorses a wound the underside of his right 1st toe that has also been present for several months for. Patient was recently seen in September of 2024 for lower extremity wound/swelling. Patient has been seeing a a home health nurse at his own house for periodic dressing changes. Over this past weekend the patient developed purulent foul-smelling drainage from the inferior aspect the left heel, as well as subjective fevers and increased lethargy. He does have history of previous right hip foot osteomyelitis s/p excision with resultant toe deformity. Patient denies any recent travel or known sick contacts. Orthopedics has been consulted regarding possible diabetic foot infection with subsequent surgical evaluation and IV antibiotics. ED Workup: 98.4F, 90 HR, 99% on RA, 163/66, 16 RR WBC 18.5, Hgb 11.5, Hct 35.1, Plt 290, PT 15.8, INR 1.2, Na 132, K 5.0, CO 27, BUN 24, Cr 1.09, , Glucose 144, Lactic Acid 1.5, LFTs wnl, CRP 21.1 XR Foot LT/RT: 1. Deep erosion plantar to the left calcaneus with lucent gas extending to the level of the posterior tuberosity of the calcaneus but without evident osteolysis to suggest osteomyelitis. 2. Juxta articular erosions with overhanging edges at the medial aspect of the heads of the bilateral first proximal phalanges and at the order side of the right third and fourth metatarsal heads with appearance suspicious for gout. 3. Significant dorsal subluxation, potentially dislocation at the third and fourth metatarsophalangeal joints with suggestion of severe osteoarthritis with remodeling of the base of the fourth proximal phalanx. 4. 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 Chest XR: Opacity at the medial left mid to lower lung zone which could be related to persistent lingular atelectasis/scarring although differential includes pneumonia. Head CT: No acute intracranial abnormality. 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 GERD (gastroesophageal reflux disease) Carpal tunnel syndrome Surgical History Surgical History History of incision and drainage Complex I&D Right foot infected diabetic foot ulcer measuring approximately 5x4cm. on 12/19/21 Status post debridement (12/2020) Right foot abscess, osteomyelitis. History of coronary artery stent placement History of cardiac catheterization History of colonoscopy with polypectomy History of repair of hiatal hernia (2001) History of coronary artery bypass graft History of carpal tunnel release History of arthroscopy of right knee History of hernia repair (2018) Finger amputee Right 2nd finger secondary to crush injury. History of right hemicolectomy with ileocolic anastomsis in 2019 Family History Family History Sibling Family history of malignant neoplasm Father Family history of chronic obstructive pulmonary disease Hypertension Heart disease Mother Hypertension Cancer Sibling Cancer Sibling Cancer Sibling Cancer Social History Social History Social History: The patient is and lives with his and 1 son in [place]. They have 4 children. 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 No alcohol or illicit substance abuse. Surrogate medical decision maker: Tash Orantes, spouse. Code status: Full code. Years smoked: 10 Smoking status: Former smoker Tobacco type: cigarettes Alcohol intake: never Substance use: never Substance use type: does not use Do You Feel Safe in your Home?: Yes Lack of Transportation: No Lack of Food: Never True Current Housing: I Have Housing Concerned About Future Housing: No Difficulty Paying Gas/Electric Bills: No Difficulty Paying for Meds: No Currently Unemployed: No Education: High School Diploma/GED Difficulty w/ Childcare or Family Care: No Living arrangements: with family Occupation/Education: retired Gender identity (if verbalized by the patient): Male Sexual Orientation (if Verbalized by the Patient): Straight or Heterosexual Spiritual care concerns: No Meds Home Medications and Allergies Home Medications ?Medication ?Instructions ?Recorded ?Confirmed ?Type Jardiance 10 mg tablet 10 mg PO DAILY 30 days #30 t abs 06/18/24 12/10/24 Rx (empagliflozin) acetaminophen 500 mg tablet 1,000 mg PO Q6H PRN pain 0 08/27/24 12/10/24 History (Acetaminophen Extra Strength) meclizine 50 mg tablet (Antivert) 50 mg PO BID 5 12/10/24 History metformin 500 mg tablet 500 mg PO BID 08/27/2412/10 History 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 sensor (Dexcom G7 #3 ea 09/13/24 5 Rx Sensor device) 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,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 communications instructor,cont #1 ea 09/13/24 12/11/24 Rx (Dexcom G7 Tank Cleaner) rosuvastatin 5 mg tablet 5 mg PO DAILY #90 tabs 10/0312/10/24 Rx carvedilol 12.5 mg tablet (Coreg) 12.5 mg PO Q12HR #60 tabs 10/06/24 12/10/24 Rx sacubitril 24 mg-valsartan 26 mg 1 tablet PO Q12HR #60 tabs 10/06/24 12/10/24 Rx tablet (Entresto) spironolactone 25 mg tablet 25 mg PO QAM #30 tabs 09/1612/10/24 Rx insulin glargine 100 unit/mL (3 18 unit (0.18 mL) subc ut QPM #15 mL 11/15/24 12/10/24 Rx mL) subcutaneous pen (Lantus Solostar U-100 Insulin) Allergies Allergy/AdvReac Type Severity Reaction Status Date / Time No Known Allergies Allergy Verified 12/10/24 23:04 Vital Signs Vital Signs - 24 hr 12/10/24 16:48 12/10/24 17:25 12/10/24 17:35 Temperature 98.4 F 99.9 F H Pulse Rate 90 90 87 Respiratory Rate 16 14 25 H Blood Pressure 78/49 L 129/87 Pulse Oximetry 99 97 99 Oxygen Delivery Room Air Room Air 12/10/24 17:45 12/10/24 17:46 12/10/24 18:00 Temperature Pulse Rate 86 87 95 Respiratory Rate 24 H 26 H 19 Blood Pressure 131/68 Pulse Oximetry 100 100 100 Oxygen Delivery 12/10/24 18:05 12/10/24 18:06 12/10/24 19:09 Temperature Pulse Rate 88 87 Respiratory Rate 30 H 14 Blood Pressure 163/66 H 163/66 H 140/69 Pulse Oximetry 100 100 100 Oxygen Delivery 12/10/24 19:16 12/10/24 19:20 12/10/24 19:31 Temperature 100.5 F H Pulse Rate 94 Respiratory Rate 18 Blood Pressure 142/68 H 144/70 H Pulse Oximetry Oxygen Delivery 12/10/24 19:32 12/10/24 20:16 12/10/24 20:31 Temperature 100.5 F H Pulse Rate 94 Respiratory Rate 18 15 22 H Blood Pressure 144/70 H 121/71 116/62 Pulse Oximetry 97 Oxygen Delivery 12/10/24 21:01 12/10/24 21:16 12/10/24 22:45 Temperature 99.1 F 97.7 F Pulse Rate 82 79 73 Respiratory Rate 24 H 21 H 18 Blood Pressure 108/58 L 104/57 L 121/61 Pulse Oximetry 98 96 100 Oxygen Delivery 12/11/24 00:00 12/11/24 00:29 12/11/24 05:10 Temperature 97.4 F L 97.2 F L Pulse Rate 74 74 85 Respiratory Rate 16 16 Blood Pressure 132/61 133/64 Pulse Oximetry 98 98 Oxygen Delivery Exam Narrative: Gen - well appearing male in no acute respiratory distress who is nontoxic- appearing lying semi recumbent in bed HEENT - normocephalic. Atraumatic. Pupils equal round and reactive. Extraocular motions intact. Sclera clear and anicteric. Moist mucous membranes. Neck - neck was supple. No dominant adenopathy, thyromegaly or masses. Chest - lungs are clear to auscultation bilaterally. No wheezes or crackles. CV - heart was regular rate and rhythm. S1-S2. No murmurs gallops or rubs. Abd - abdomen was soft. Nontender. Nondistended. Positive bowel sounds. Ext - no clubbing, cyanosis or edema. 2+ DP pulses bilaterally. Neuro - patient is alert and oriented x4. Strength is 5/5 in both upper and low er extremities. Cranial nerves 2-12 are intact. Speech is clear. Psych - normal mood and affect. Patient is pleasant and cooperative. Skin - R 1st toe - ulcer at base, erythema and tenderness. L foot - heel wound, deep H&P: Results Labs Labs: Short CBC 12/10/24 12/11/24 Range/Units 18:17 06:09 WBC 18.5 H 11.7 H (4.5-10.0) K/mm3 Hgb 11.5 L 9.1 L (14.0-18.0) g/dL Hct 35.1 L 28.3 L (42.0-52.0) % Plt Count 290 223 (150-375) k/mm3 BMP 12/10/24 12/11/24 18:17 06:09 Sodium 132 L 128 L Potassium 5.0 4.2 Chloride 95 L 99 Carbon Dioxide 27 27 BUN 24 H 22 H Creatinine 1.09 0.72 Glucose 144 H 195 H Calcium 9.3 8.4 Liver Function 12/10/24 12/11/24 Range/Units 18:17 06:09 Total Bilirubin 1.4 H 0.6 (0.2-1.3) mg/dL AST 25 25 (17-59) U/L ALT 13 12 (6-50) U/L Alkaline Phosphatase 96 85 (38-126) U/L Albumin 3.9 2.8 L (3.5-5.1) g/dL Urine 12/10/24 Range/Units 21:08 Urine Color Dark yellow (Yellow) Urine Appearance Clear (Clear) Urine pH 5.5 (5.0-9.0) Ur Specific [place] 1.024 (1.001-1.035) Urine Protein 1+ H (Negative) mg/dL Urine Glucose (UA) 3+ H (Negative) mg/dL Assessment and Plan Assessment and plan (1) Heel ulcer due to DM: Qualifiers: Diabetes mellitus type: type 2 Laterality: left Non-pressure ulcer stage: with necrosis of muscle Qualified Code(s): E11.621 - Type 2 diabetes mellitus with foot ulcer; L97.423 - Non-pressure chronic ulcer of left heel and midfoot with necrosis of muscle Code(s): E11.621 - Type 2 diabetes mellitus with foot ulcer; L97.409 - Non-pressure chronic ulcer of unspecified heel and midfoot with unspecified severity Status: Acute Assessment and Plan: * Pressure ulcer noted on lateral left heel * Purulence foul smelling drainage for the past several days * Likely now has secondary sepsis given increased lethargy, hypotension and fevers * Wound care consulted * Orthopedics consulted * Plan further debridement when medically stable * Continue IV antibiotics * Start Dakin's solution dressing changes (2) Diabetic foot infection: Code(s): E11.628 - Type 2 diabetes mellitus with other skin complications; L08.9 - Local infection of the skin and subcutaneous tissue, unspecified Status: Acute Assessment and Plan: * See above (3) Sepsis: Code(s): A41.9 - Sepsis, unspecified organism Status: Acute Assessment and Plan: * Meets SIRS criteria: Tachycardia, leukocytosis, tachypnea * lactic acid: 1.5 * suspected source: Diabetic foot wound * blood cultures drawn on 12/10 -pending * UA: 3-5 urine RBC, trace ketones, 3+ glucose * CXR:Opacity at the medial left mid to lower lung zone which could be related to persistent lingular atelectasis/scarring although differential includes pneumonia. 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) use of insulin Code(s): E11.65 - Type 2 diabetes mellitus with hyperglycemia Status: Acute Assessment and Plan: * Hypoglycemia protocol * POC blood glucose ACHS * Home medication -continue Jardiance, Metformin on held * Correct regimen ordered - low dose TIDWM and Lantus 18 units HS * A1C 8.5 (down from 11.3 in 09/08) (5) Non-pressure chronic ulcer of other part of right foot with necrosis of muscle: Code(s): L97.513 - Non-pressure chronic ulcer of other part of right foot with necrosis of muscle Status: Acute Assessment and Plan: * Chronic right foot ulcer with deformity of the 3/4 metatarsophalangeal joints * Previous osteomyelitis * Orthopedics consulted * Would benefit from surgical excision of joints with relief of pressure and closure of ulceration * Surgical realignment of toes * Will proceed when patient is medically stable * Continue IV antibiotics * Monitor WBC, blood cultures (6) CAD (coronary artery disease): Qualifiers: Associated angina: with stable angina Coronary Disease-Associated Artery/Lesion type: [place] artery [place] vs. transplanted heart: [place] heart Qualified Code(s): I25.118 - Atherosclerotic heart disease of [place] coronary artery with other forms of angina pectoris Code(s): I25.10 - Atherosclerotic heart disease of [place] coronary artery without angina pectoris Status: Acute Assessment and Plan: * S/p stents and CABG * Restarted home medications (7) CHF (congestive heart failure): Code(s): I50.9 - Heart failure, unspecified Status: Acute Assessment and Plan: * Denies any shortness of breath or lower extremity swelling * Does not appear to be volume overloaded on exam * EKG: Sinus rhythm with occasional supraventricular premature complexes, left axis deviation, 92 rate, 351 QT * Chest XR: Opacity at the medial left mid to lower lung zone which could be related to persistent lingular atelectasis/scarring although differential includes pneumonia. * Monitor vital signs, I&Os, BUN/creatinine, daily weights, neuro status and patient is a fall risk * Monitor serum electrolytes, Keep serum Potassium>4 and serum Magnesium>2 and CBC * Continue Jardiance (8) Fall: Code(s): W19.XXXA - Unspecified fall, initial encounter Status: Acute Assessment and Plan: * Mechanical fall at home prior to admission, denies any LOC but reports it was difficult to get up from fall * Head is atraumatic, no neurological deficits appreciated on exam * Likely secondary to underlying lower extremity chronic wounds, patient endorses difficulty with ambulation in general * Head CT: No intracranial abnormalities * PT/OT evaluations for discharge planning Quality VTE Prophylaxis VTE prophylaxis: mechanical ordered and pharmacologic ordered
[2024-12-11] MEDS: SACUBITRIL/VALSARTAN 24-26 MG TABLET 1 TAB PO ×2 (10:16→21:43)
[2024-12-11] MEDS: EMPAGLIFLOZIN 10 MG TABLET PO (10:17)
[2024-12-11] MEDS: ROSUVASTATIN 5 MG TABLET PO (10:17)
[2024-12-11] MEDS: SPIRONOLACTONE 25 MG TABLET PO (10:17)
[2024-12-11] MEDS: ENOXAPARIN 40 MG/0.4 ML SYRINGE SUB-Q (10:18)
[2024-12-11] MEDS: VANCOMYCIN 1,500 MG/NS 500 ML 1,500 MG/500 ML BAG 250 MG IVPB ×2 (10:21→21:44)
[2024-12-11] MEDS: SOD HYPOCHLORITE 1/4 STRENGTH 473 ML 1 APPLIC TOPICAL ×2 (11:43→21:44)
--- NOTE | 2024-12-11 13:45 | PM.CNOR ---
Assessment and Plan Assessment and plan (1) Infected pressure ulcer: Qualifiers: Pressure injury stage: stage 4 Qualified Code(s): L89.94 - Pressure ulcer of unspecified site, stage 4; L08.9 - Local infection of the skin and subcutaneous tissue, unspecified Code(s): L89.90 - Pressure ulcer of unspecified site, unspecified stage; L08.9 - Local infection of the skin and subcutaneous tissue, unspecified Status: Acute (2) Diabetic foot infection: Code(s): E11.628 - Type 2 diabetes mellitus with other skin complications; L08.9 - Local infection of the skin and subcutaneous tissue, unspecified Status: Acute (3) Heel ulcer due to DM: Qualifiers: Diabetes mellitus type: type 2 Laterality: left Non-pressure ulcer stage: with necrosis of muscle Qualified Code(s): E11.621 - Type 2 diabetes mellitus with foot ulcer; L97.423 - Non-pressure chronic ulcer of left heel and midfoot with necrosis of muscle Code(s): E11.621 - Type 2 diabetes mellitus with foot ulcer; L97.409 - Non-pressure chronic ulcer of unspecified heel and midfoot with unspecified severity Status: Acute Assessment and Plan: Admitted through the emergency room last night with worsening infection of left chronic plantar heel ulcer with diabetes. Somewhat better diabetic control as of late but A1c still greater than 8. Purulent foul-smelling drainage for the past 4 days. Appears to have gotten septic with lethargy, fever, decreased blood pressure. Started on antibiotics. Assessment with the wound care team. Start Dakin's solution dressing changes. Plan further debridement when medically stable. Discussed with patient. (4) Non-pressure chronic ulcer of other part of right foot with necrosis of muscle: Code(s): L97.513 - Non-pressure chronic ulcer of other part of right foot with necrosis of muscle Status: Acute Assessment and Plan: Chronic ulcer right foot with deformity of the 3rd and 4th metatarsophalangeal joints. Previous injury with hardware nail through the foot. Previous osteomyelitis. Will benefit from surgical excision of metatarsophalangeal joints, relief of pressure and closure of ulceration. We will attempt realignment of toes. Plan to proceed When left foot stable. Plan Discussed nonoperative and operative treatment options with the patient. Risks and benefits of each as well as alternatives were reviewed. All of the patient's questions were answered. The risks of surgery reviewed including but not limited to: Neurovascular damage, wound complication, infection, blood clot, pulmonary embolus, stroke, myocardial infarction, and anesthetic risks up to and including . Continued pain and possible dysfunction were explained. Specific risks of the procedure including later recurrence of deformity. No guarantees were offered. If hardware used, discussed risk of failure/ breakage and possible need for removal. If complications occur, the patient understands the need for further treatment, possible further surgery. Patient verbalizes understanding and wishes to proceed. PLAN: left foot excisional debridement History of Present Illness HPI Consult date: 12/11/24 Requesting physician: Antony Hernadez MD Chief complaint: diabetic foot ulcer Narrative: 69-year-old gentleman with diabetes and chronic diabetic foot ulcer of both the right and left foot presented to the emergency room with worsening drainage and odor from the left plantar heel diabetic ulcer. Last seen in the wound clinic 6 weeks ago. Home health nursing had been coming out to assist with dressing changes. Last week they noted stable appearing chronic wounds. Over the weekend apparently developed fever, lethargy and purulent foul smelling drainage from the left heel. Presented to the emergency room yesterday. Had been doing Idalmis and gauze dressing changes. History of previous right foot osteomyelitis, status post excision with resultant toe deformity. Review of Systems Constitutional: Constitutional: Denies fever(s) Eyes: Eyes: Denies blurry vision ENT: Reports Normal hearing present Cardiovascular: Cardiovascular: Denies chest pain and Denies dyspnea Respiratory: Respiratory: Denies dyspnea and Denies wheezing Gastrointestinal: Gastrointestinal: Denies abdominal pain Genitourinary: Genitourinary: Denies urinary urgency Musculoskeletal: Musculoskeletal: Reports as per HPI and Denies numbness Integumentary/Breasts: Skin/Breast: Denies changing lesions and Denies sores Neurologic: Reports Normal hearing present, Denies behavioral changes, Denies confusion, Denies numbness and Denies convulsions Psychiatric: Psychiatric: Denies behavioral changes, Denies confusion and Denies hallucinations Endocrine: Endocrine: Denies heat intolerance Hematologic/Lymphatic: Hematologic/Lymphatic: Denies easy bleeding Allergic/Immunologic: Allergic/Immunologic: Denies wheezing PMFSH Past Medical History Medical History Calf pain Non-pressure chronic ulcer of other part of right foot with necrosis of muscle Heel ulcer due to DM History of colon cancer 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 GERD (gastroesophageal reflux disease) Carpal tunnel syndrome Surgical History Surgical History History of incision and drainage Complex I&D Right foot infected diabetic foot ulcer measuring approximately 5x4cm. on 12/19/21 Status post debridement (12/2020) Right foot abscess, osteomyelitis. History of coronary artery stent placement History of cardiac catheterization History of colonoscopy with polypectomy History of repair of hiatal hernia (2001) History of coronary artery bypass graft History of carpal tunnel release History of arthroscopy of right knee History of hernia repair (2018) Finger amputee Right 2nd finger secondary to crush injury. History of right hemicolectomy with ileocolic anastomsis in 2019 Family History Family History Sibling Family history of malignant neoplasm Father Family history of chronic obstructive pulmonary disease Hypertension Heart disease Mother Hypertension Cancer Sibling Cancer Sibling Cancer Sibling Cancer Social History Social History Social History: The patient is and lives with his and 1 son in [place]. They have 4 children. 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 No alcohol or illicit substance abuse. Surrogate medical decision maker: Tash Orantes, spouse. Code status: Full code. Years smoked: 10 Smoking status: Former smoker Tobacco type: cigarettes Alcohol intake: never Substance use: never Substance use type: does not use Do You Feel Safe in your Home?: Yes Lack of Transportation: No Lack of Food: Never True Current Housing: I Have Housing Concerned About Future Housing: No Difficulty Paying Gas/Electric Bills: No Difficulty Paying for Meds: No Currently Unemployed: No Education: High School Diploma/GED Difficulty w/ Childcare or Family Care: No Living arrangements: with family Occupation/Education: retired Gender identity (if verbalized by the patient): Male Sexual Orientation (if Verbalized by the Patient): Straight or Heterosexual Spiritual care concerns: No Meds Home Medications and Allergies Home Medications ?Medication ?Instructions ?Recorded ?Confirmed ?Type Jardiance 10 mg tablet 10 mg PO DAILY 30 days #30 tabs 06/18/24 12/10/24 Rx (empagliflozin) acetaminophen 500 mg tablet 1,000 mg PO Q6H PRN pain 08/27/24 12/10/24 History (Acetaminophen Extra Strength) meclizine 50 mg tablet (Antivert) 50 mg PO BID 08/27/24 12/10/24 History metformin 500 mg tablet 500 mg PO BID 08/27/24 12/10/24 History 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 sensor (Dexcom G7 #3 ea 09/13/24 12/11/24 Rx Sensor device) 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,polyethylene combiner,cont #1 ea 09/13/24 12/11/24 Rx (Dexcom G7 Content Engineer) rosuvastatin 5 mg tablet 5 mg PO DAILY #90 tabs 10/03/24 12/10/24 Rx carvedilol 12.5 mg tablet (Coreg) 12.5 mg PO Q12HR #60 tabs 10/06/24 12/10/24 Rx sacubitril 24 mg-valsartan 26 mg 1 tablet PO Q12HR #60 tabs 10/06/24 12/10/24 Rx tablet (Entresto) spironolactone 25 mg tablet 25 mg PO QAM #30 tabs 10/06/24 12/10/24 Rx insulin glargine 100 unit/mL (3 18 unit (0.18 mL) subcut QPM #15 mL 11/15/24 12/10/24 Rx mL) subcutaneous pen (Lantus Solostar U-100 Insulin) Allergies Allergy/AdvReac Type Severity Reaction Status Date / Time No Known Allergies Allergy Verified 12/10/24 23:04 Vital Signs Vital Signs - 24 hr 12/10/24 16:48 12/10/24 17:25 12/10/24 17:35 Temperature 98.4 F 99.9 F H Pulse Rate 90 90 87 Respiratory Rate 16 14 25 H Blood Pressure 78/49 L 129/87 Pulse Oximetry 99 97 99 Oxygen Delivery Room Air Room Air 12/10/24 17:45 12/10/24 17:46 12/10/24 18:00 Temperature Pulse Rate 86 87 95 Respiratory Rate 24 H 26 H 19 Blood Pressure 131/68 Pulse Oximetry 100 100 100 Oxygen Delivery 12/10/24 18:05 12/10/24 18:06 12/10/24 19:09 Temperature Pulse Rate 88 87 Respiratory Rate 30 H 14 Blood Pressure 163/66 H 163/66 H 140/69 Pulse Oximetry 100 100 100 Oxygen Delivery 12/10/24 19:16 12/10/24 19:20 12/10/24 19:31 Temperature 100.5 F H Pulse Rate 94 Respiratory Rate 18 Blood Pressure 142/68 H 144/70 H Pulse Oximetry Oxygen Delivery 12/10/24 19:32 12/10/24 20:16 12/10/24 20:31 Temperature 100.5 F H Pulse Rate 94 Respiratory Rate 18 15 22 H Blood Pressure 144/70 H 121/71 116/62 Pulse Oximetry 97 Oxygen Delivery 12/10/24 21:01 12/10/24 21:16 12/10/24 22:45 Temperature 99.1 F 97.7 F Pulse Rate 82 79 73 Respiratory Rate 24 H 21 H 18 Blood Pressure 108/58 L 104/57 L 121/61 Pulse Oximetry 98 96 100 Oxygen Delivery 12/11/24 00:00 12/11/24 00:29 12/11/24 05:10 Temperature 97.4 F L 97.2 F L Pulse Rate 74 74 85 Respiratory Rate 16 16 Blood Pressure 132/61 133/64 Pulse Oximetry 98 98 Oxygen Delivery 12/11/24 08:00 12/11/24 08:00 12/11/24 10:18 Temperature Pulse Rate 94 97 Respiratory Rate Blood Pressure Pulse Oximetry Oxygen Delivery Room Air Exam Const: General: awake, acute distress mild, diaphoretic and ill appearing acutely Orientation/consciousness: oriented to person, oriented to place, oriented to time and No confusion HENMT: Head: normal to inspection, normocephalic and atraumatic Neck: Neck: supple and no JVD Resp: Effort & Inspection: normal respiratory effort Cardio: Rate: regular rate Rhythm: regular rhythm GI: Inspection: non-distended GI Palp: Yes Soft to palpation Neuro: Cognition (Neuro): normal cognition Speech: normal speech Extrem: Right upper extremity: normal to inspection Left upper extremity: normal to inspection Right lower extremity: ankle Details: abnormal to inspection, swelling ( 3+) Details: diffusely, abnormal ROM Details: with range as follows (ankle dorsiflexion -10 degrees, plantar flexion 40?, inversion 15?, eversion 15?) and other ( good stability all directions); no tenderness and no ecchymosis and foot Details: abnormal to inspection ( extension deformity of the 3rd and 4th toe) Details: other ( 1 x 1 cm ulcer plantar forefoot under the 4th metatarsal head surrounding callus. No surrounding erythema. No drainage.), abnormal ROM of toe ( hallux MTP dorsiflexion 40, plantar flexion 20?), vascular exam Details: abnormal capillary refill Location: of all toes; dorsalis pedis pulse absent and posterior tibial pulse absent, tendon exam Details: active flexion abnormal and active extension abnormal, motor-sensory exam Details: two point discrimination abnormal Location: in all toes and light-touch abnormal Location: in all toes and other (Hallux metatarsophalangeal motion 20? dorsiflexion/10? plantar flexion) Left lower extremity: ankle Details: normal to inspection and abnormal ROM Details: with range as follows (ankle dorsiflexion -10 degrees, plantar flexion 40?, inversion 15?, eversion 15?); no tenderness and no swelling and foot Details: tenderness, abnormal ROM of toe, warmth, edema Location: of the dorsal foot ( 4+), vascular exam Details: abnormal capillary refill Location: of all toes; dorsalis pedis pulse absent and posterior tivial pulse absent, tendon exam active flexion abnormal of the great toe and active extension abnormal of the great toe and motor-sensory exam two point discrimination abnormal and light-touch abnormal in all toes; abnormal capillary refill and no crepitus Other: Wound on the plantar aspect of the right 4th MTP joint measures 1.0x1.0x1.0 cm. 100% red/pink wound bed. No signs of active infection. Extensive surrounding callus. Extensor deformity of the 3rd and 4th toe with good capillary refill. Unable to move the toes. Wound on the calcaneus of the left heel measures 5x3x2.0 cm, Purulent drainage with foul odor. Surrounding tissue mascerated. Probes to bone. Surrounding soft tissue swollen with erythema extending around the heel. Psych: Mental Status: mental status grossly normal Affect: normal affect Results Labs 12/11/24 06:09 12/11/24 06:09 Labs: Abnormal lab results 12/10/24 12/10/24 12/10/24 Range/Units 18:17 20:44 21:08 WBC 18.5 H (4.5-10.0) K/mm3 RBC 3.90 L (4.6-6.20) M/mm3 Hgb 11.5 L (14.0-18.0) g/dL Hct 35.1 L (42.0-52.0) % Immature Gran % (Auto) 0.9 H (0-0.5) % Neut % (Auto) 89.5 H (45.5-73.1) % Lymph % (Auto) 3.1 L (18.3-44.2) % Lymph # (Auto) 0.57 L (0.9-3.2) K/mm3 [place] # (Auto) 1.2 H (0.1-0.6) K/mm3 Abs Immat Gran (auto) 0.16 H (0.00-0.031) K/mm3 Absolute Neuts (auto) 16.6 H (1.3-6.7) K/mm3 PT 15.8 H (11.1-14.7) Seconds Sodium 132 L (137-145) mmol/L Chloride 95 L (98-107) mmol/L Anion Gap (4-12) mmol/L BUN 24 H (9-20) mg/dL Glucose 144 H (65-110) mg/dL POC Capillary Glucose 127 H (65-105) mg/dl Hemoglobin A1c (<5.7) % Total Bilirubin 1.4 H (0.2-1.3) mg/dL C-Reactive Protein 21.1 H (<1.0) mg/dL Total Protein 8.3 H (6.3-8.2) g/dL Albumin (3.5-5.1) g/dL Urine Protein 1+ H (Negative) mg/dL Urine Glucose (UA) 3+ H (Negative) mg/dL Urine Ketones Trace H (Negative) mg/dL Urine RBC 3-5 H (0-2) /hpf 12/11/24 12/11/24 12/11/24 Range/Units 00:01 06:09 07:34 WBC 11.7 H (4.5-10.0) K/mm3 RBC 3.11 L (4.6-6.20) M/mm3 Hgb 9.1 L (14.0-18.0) g/dL Hct 28.3 L (42.0-52.0) % Immature Gran % (Auto) 0.6 H (0-0.5) % Neut % (Auto) 86.9 H (45.5-73.1) % Lymph % (Auto) 4.7 L (18.3-44.2) % Lymph # (Auto) 0.55 L (0.9-3.2) K/mm3 [place] # (Auto) 0.8 H (0.1-0.6) K/mm3 Abs Immat Gran (auto) 0.07 H (0.00-0.031) K/mm3 Absolute Neuts (auto) 10.1 H (1.3-6.7) K/mm3 PT (11.1-14.7) Seconds Sodium 128 L (137-145) mmol/L Chloride (98-107) mmol/L Anion Gap 2 L (4-12) mmol/L BUN 22 H (9-20) mg/dL Glucose 195 H (65-110) mg/dL POC Capillary Glucose 120 H 180 H (65-105) mg/dl Hemoglobin A1c 8.5 H (<5.7) % Total Bilirubin (0.2-1.3) mg/dL C-Reactive Protein 20.1 H (<1.0) mg/dL Total Protein 6.1 L (6.3-8.2) g/dL Albumin 2.8 L (3.5-5.1) g/dL Urine Protein (Negative) mg/dL Urine Glucose (UA) (Negative) mg/dL Urine Ketones (Negative) mg/dL Urine RBC (0-2) /hpf 12/11/24 Range/Units 12:01 WBC (4.5-10.0) K/mm3 RBC (4.6-6.20) M/mm3 Hgb (14.0-18.0) g/dL Hct (42.0-52.0) % Immature Gran % (Auto) (0-0.5) % Neut % (Auto) (45.5-73.1) % Lymph % (Auto) (18.3-44.2) % Lymph # (Auto) (0.9-3.2) K/mm3 [place] # (Auto) (0.1-0.6) K/mm3 Abs Immat Gran (auto) (0.00-0.031) K/mm3 Absolute Neuts (auto) (1.3-6.7) K/mm3 PT (11.1-14.7) Seconds Sodium (137-145) mmol/L Chloride (98-107) mmol/L Anion Gap (4-12) mmol/L BUN (9-20) mg/dL Glucose (65-110) mg/dL POC Capillary Glucose 180 H (65-105) mg/dl Hemoglobin A1c (<5.7) % Total Bilirubin (0.2-1.3) mg/dL C-Reactive Protein (<1.0) mg/dL Total Protein (6.3-8.2) g/dL Albumin (3.5-5.1) g/dL Urine Protein (Negative) mg/dL Urine Glucose (UA) (Negative) mg/dL Urine Ketones (Negative) mg/dL Urine RBC (0-2) /hpf H & H 12/10/24 12/11/24 Range/Units 18:17 06:09 Hgb 11.5 L 9.1 L (14.0-18.0) g/dL Hct 35.1 L 28.3 L (42.0-52.0) % Coagulation 12/10/24 Range/Units 18:17 INR 1.2 All other labs normal. Diagnostic results Ankle/Foot x-ray: image reviewed ( Left foot soft tissue ulcer plantar heel with extension to the calcaneus. Questionable erosion of calcaneal cortex. Right foot dorsal extension deformity 3rd 4th toes with resection of the base the toes. No lytic lesion noted.)
[2024-12-12] VITALS (13 sets, daily range): BP systolic 124–148; BP diastolic 59–75; PULSE 71–82; RESP 14–16; TEMP 36.1–37.2; O2SAT 91–100
[2024-12-12] MEDS: metroNIDAZOLE 500 MG/ISO 100ML 500 MG/100 ML BAG 100 MG IVPB ×3 (05:45→20:07)
[2024-12-12] MEDS: CEFEPIME 2 GM in SODIUM CHLORIDE 0.9% IV 50 ML 100 ML IVPB ×2 (05:46→17:29)
--- NOTE | 2024-12-12 07:38 | P.PNIM_ITS ---
Progress Note: A&P Assessment and Plan (1) Heel ulcer due to DM: Qualifiers: Diabetes mellitus type: type 2 Laterality: left Non-pressure ulcer stage: with necrosis of muscle Qualified Code(s): E11.621 - Type 2 diabetes mellitus with foot ulcer; L97.423 - Non-pressure chronic ulcer of left heel and midfoot with necrosis of muscle Code(s): E11.621 - Type 2 diabetes mellitus with foot ulcer; L97.409 - Non-pressure chronic ulcer of unspecified heel and midfoot with unspecified severity Status: Acute Assessment and Plan: * Pressure ulcer noted on lateral left heel * Purulence foul smelling drainage for the past several days * Likely now has secondary sepsis given increased lethargy, hypotension and fevers * Wound care consulted * Orthopedics consulted * Plan further debridement when medically stable * Continue IV antibiotics * Start Dakin's solution dressing changes * 12/12: Plan for Irrigation and Debridement of L Foot @ 1100 * Findings: Left foot plantar heel ulcer 4 x 4 cm with 6 cm tunneling along the plantar foot extending distally at the 1 o'clock position. Purulent material. Involving plantar calcaneus. Right foot 2 x 1 cm ulcer 4th metatarsal head with exposure of the metatarsal head. * Per orthopedics: Continue IV antibiotics, monitoring of lower extremity wounds with probable continued debridement within the week (2) Diabetic foot infection: Code(s): E11.628 - Type 2 diabetes mellitus with other skin complications; L08.9 - Local infection of the skin and subcutaneous tissue, unspecified Status: Acute Assessment and Plan: * See above (3) Sepsis: Code(s): A41.9 - Sepsis, unspecified organism Status: Acute Assessment and Plan: * Meets SIRS criteria: Tachycardia, leukocytosis, tachypnea * lactic acid: 1.5 * suspected source: Diabetic foot wound * blood cultures drawn on 12/10 -pending * UA: 3-5 urine RBC, trace ketones, 3+ glucose * CXR: Opacity at the medial left mid to lower lung zone which could be related to persistent lingular atelectasis/scarring although differential includes pneumonia. * Denies any shortness of breath or cough, less likely pneumonia * Monitor daily labs * Continue cefepime, vancomycin and Flagyl (4) CHF (congestive heart failure): Code(s): I50.9 - Heart failure, unspecified Status: Acute Assessment and Plan: * Denies any shortness of breath or lower extremity swelling * Does not appear to be volume overloaded on exam * EKG: Sinus rhythm with occasional supraventricular premature complexes, left axis deviation, 92 rate, 351 QT * Chest XR: Opacity at the medial left mid to lower lung zone which could be related to persistent lingular atelectasis/scarring although differential includes pneumonia. * Monitor vital signs, I&Os, BUN/creatinine, daily weights, neuro status and patient is a fall risk * Monitor serum electrolytes, Keep serum Potassium>4 and serum Magnesium>2 and CBC * Continue Jardiance * Per outpatient cardiology note on 12/09/2024: * Ambulatory referral to Cardiac electrophysiology at 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 Code(s): E11.65 - Type 2 diabetes mellitus with hyperglycemia Status: Acute Assessment and Plan: * Hypoglycemia protocol * POC blood glucose ACHS * Home medication -continue Jardiance, Metformin on held * Correct regimen ordered - low dose TIDWM and Lantus 18 units HS * A1C 8.5 (down from 11.3 in 09/08) (6) Non-pressure chronic ulcer of other part of right foot with necrosis of muscle: Code(s): L97.513 - Non-pressure chronic ulcer of other part of right foot with necrosis of muscle Status: Acute Assessment and Plan: * Chronic right foot ulcer with deformity of the 3/4 metatarsophalangeal joints * Previous osteomyelitis * Orthopedics consulted * Would benefit from surgical excision of joints with relief of pressure and closure of ulceration * Surgical realignment of toes * Will proceed when patient is medically stable * Continue IV antibiotics * Monitor WBC, blood cultures (7) CAD (coronary artery disease): Qualifiers: Associated angina: with stable angina Coronary Disease-Associated Artery/Lesion type: [place] artery [place] vs. transplanted heart: [place] heart Qualified Code(s): I25.118 - Atherosclerotic heart disease of [place] coronary artery with other forms of angina pectoris Code(s): I25.10 - Atherosclerotic heart disease of [place] coronary artery without angina pectoris Status: Acute Assessment and Plan: * S/p stents and CABG * Restarted home medications (8) Fall: Code(s): W19.XXXA - Unspecified fall, initial encounter Status: Acute Assessment and Plan: * Mechanical fall at home prior to admission, denies any LOC but reports it was difficult to get up from fall * Head is atraumatic, no neurological deficits appreciated on exam * Likely secondary to underlying lower extremity chronic wounds, patient endorses difficulty with ambulation in general * Head CT: No intracranial abnormalities * PT/OT evaluations for discharge planning Subjective Date/time seen: 12/12/24 07:38 Interval history: 69 year old Male with a past medical history of T2DM, CAD s/p stents and CABG , and Ischemic cardiomyopathy who presents to the hospital for wounds on both of his feet. 12/12/2024 Patient sitting comfortably in bed at time examination. Plan for irrigation and debridement of bilateral feet at 11:00 a.m. today. Spoke with Cardiology regarding in outpatient visit occurred on 12/09. At this time cardiology does not recommend transfer to a tertiary facility, and as patient is not having any current cardiac symptoms, will disregard consult orders. Plan on continuing IV antibiotics and monitoring of lower extremity tissue, patient will likely need several weeks of IV antibiotics. Review of Systems Review of Systems: All systems reviewed & are unremarkable except as noted in HPI and below Exam Narrative: Gen - well appearing male in no acute respiratory distress who is nontoxic- appearing lying semi recumbent in bed HEENT - normocephalic. Atraumatic. Pupils equal round and reactive. Extraocular motions intact. Sclera clear and anicteric. Moist mucous membranes. Neck - neck was supple. No dominant adenopathy, thyromegaly or masses. Chest - lungs are clear to auscultation bilaterally. No wheezes or crackles. CV - heart was regular rate and rhythm. S1-S2. No murmurs gallops or rubs. Abd - abdomen was soft. Nontender. Nondistended. Positive bowel sounds. Ext - no clubbing, cyanosis or edema. 2+ DP pulses bilaterally. Neuro - patient is alert and oriented x4. Strength is 5/5 in both upper and lower extremities. Cranial nerves 2-12 are intact. Speech is clear. Psych - normal mood and affect. Patient is pleasant and cooperative. Skin - R 1st toe - ulcer at base, erythema and tenderness. L foot - heel wound, deep Objective Data Vital Signs Vital Signs: Vital Signs - 24 hr 12/11/24 08:00 12/11/24 08:00 12/11/24 10:18 Temperature Pulse Rate 94 97 Respiratory Rate Blood Pressure Pulse Oximetry Oxygen Delivery Room Air 12/11/24 12:00 12/11/24 14:00 12/11/24 16:00 Temperature 98.2 F Pulse Rate 80 91 101 H Respiratory Rate 18 Blood Pressure 127/62 Pulse Oximetry 99 Oxygen Delivery 12/11/24 20:00 12/11/24 22:00 12/11/24 23:27 Temperature 99.8 F H Pulse Rate 88 88 Respiratory Rate 16 Blood Pressure 139/66 Pulse Oximetry 92 93 Oxygen Delivery Room Air 12/12/24 04:00 12/12/24 05:48 Temperature 97.9 F Pulse Rate 71 73 Respiratory Rate 16 Blood Pressure 126/59 L Pulse Oximetry 91 Oxygen Delivery Intake/Output Intake/Output: Intake & Output 12/09/24 12/10/24 12/11/24 12/12/24 23:59 23:59 23:59 23:59 Intake Total 2550 1770 400 Output Total 550 Balance 2550 1770 -150 Meds/Results Medications: Active Medications Generic Name Dose Route Start Last Admin Trade Name Freq PRN Reason Stop Dose Admin Acetaminophen 1,000 mg 12/11/24 01:36 Acetaminophen 500 Mg Tablet PO Q6H PRN Pain or Fever Carvedilol 12.5 mg 12/11/24 09:00 12/11/24 21:43 Carvedilol 12.5 Mg Tablet PO 12.5 mg Q12HR RANDA Administration Dextrose 12.5 gm 12/11/24 01:38 Dextrose 50% 25 Gm/50 Ml Syringe IV PUSH PRN PRN Hypoglycemia Protocol Empagliflozin 10 mg 12/11/24 09:00 12/11/24 10:17 Empagliflozin 10 Mg Tablet PO 10 mg DAILY RANDA Administration Enoxaparin Sodium 40 mg 12/11/24 09:00 12/11/24 10:18 Enoxaparin 40 Mg/0.4 Ml Syringe SUB-Q 40 mg DAILY RANDA Administration Glucagon 1 mg 12/11/24 01:38 Glucagon For Inj 1 Mg Vial IM PRN PRN Hypoglycemia Protocol Glucose 15 gm 12/11/24 01:38 Glucose Oral Gel 15 Gm Of Glucse In 37.5 Gm Tube PO PRN PRN Hypoglycemia Protocol Cefepime HCl 2 gm/ Sodium 50 mls @ 100 mls/hr 12/11/24 06:00 12/12/24 05:46 Chloride IVPB 100 mls/hr Q12H RANDA Administration Metronidazole 500 mg in 100 mls @ 100 mls/hr 12/11/24 05:00 12/12/24 05:45 Flagyl 500 Mg/Iso Soln 100 Ml IVPB 100 mls/hr Q8H RANDA Administration Dextrose 1,000 mls @ 100 mls/hr 12/11/24 01:38 Dextrose 5% 1,000 Ml IVPB PRN PRN Hypoglycemia Protocol Vancomycin HCl 1,500 mg in 500 mls @ 250 mls/hr 12/11/24 09:00 12/11/24 21:44 Vancomycin 1,500 Mg/Ns 500 Ml IVPB 250 mls/hr Q12H RANDA Administration Insulin Aspart 3 - 6 units 12/11/24 08:00 12/11/24 16:56 Insulin Aspart (*Bkc) 100 Units/Ml SUB-Q Not Given TIDWM [facility] Protocol Insulin Glargine 18 units 12/11/24 21:00 12/11/24 21:48 Insulin Glargine (*Bkc) 100 Units/Ml SUB-Q Not Given QHS [facility] Meclizine HCl 50 mg 12/11/24 01:46 Meclizine Hcl 25 Mg Tablet PO BID PRN nausea/dizziness/anxiety Rosuvastatin Calcium 5 mg 12/11/24 09:00 12/11/24 10:17 Rosuvastatin 5 Mg Tablet PO 5 mg DAILY RANDA Administration Sacubitril/Valsartan 1 tab 12/11/24 09:00 12/11/24 21:43 Sacubitril/Valsartan 24-26 Mg Tablet PO 1 tab Q12HR RANDA Administration Sodium Hypochlorite 1 applic 12/11/24 09:00 12/11/24 21:44 Sod Hypochlorite 1/4 Strength 473 Ml TOPICAL 1 applic Q12HR RANDA Administration Spironolactone 25 mg 12/11/24 09:00 12/11/24 10:17 Spironolactone 25 Mg Tablet PO 25 mg QAM RANDA Administration Radiology Results: ITS Impressions Foot X-Ray 12/10/24 18:28 IMPRESSION: 1. Deep erosion plantar to the left calcaneus with lucent gas extending to the level of the posterior tuberosity of the calcaneus but without evident osteolysis to suggest osteomyelitis. 2. Juxta articular erosions with overhanging edges at the medial aspect of the heads of the bilateral first proximal phalanges and at the order side of the right third and fourth metatarsal heads with appearance suspicious for gout. 3. Significant dorsal subluxation, potentially dislocation at the third and fourth metatarsophalangeal joints with suggestion of severe osteoarthritis with remodeling of the base of the fourth proximal phalanx. 4. 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 Foot X-Ray 12/10/24 18:28 IMPRESSION: 1. Deep erosion plantar to the left calcaneus with lucent gas extending to the level of the posterior tuberosity of the calcaneus but without evident osteolysis to suggest osteomyelitis. 2. Juxta articular erosions with overhanging edges at the medial aspect of the heads of the bilateral first proximal phalanges and at the order side of the right third and fourth metatarsal heads with appearance suspicious for gout. 3. Significant dorsal subluxation, potentially dislocation at the third and fourth metatarsophalangeal joints with suggestion of severe osteoarthritis with remodeling of the base of the fourth proximal phalanx. 4. 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 Chest X-Ray 12/10/24 20:05 IMPRESSION: 1. Opacity at the medial left mid to lower lung zone which could be related to persistent lingular atelectasis/scarring although differential includes pneumonia. Head CT 12/11/24 13:27 IMPRESSION: 1. No acute intracranial abnormality. Labs Labs: Laboratory Results - last 24 hr 12/11/24 12/11/24 12/11/24 06:09 12:01 16:38 ESR POC Capillary Glucose 180 H 123 H Hemoglobin A1c 8.5 H 12/11/24 12/11/24 12/12/24 16:50 20:33 02:31 ESR > 140 H POC Capillary Glucose 108 H 71 Hemoglobin A1c Quality VTE Prophylaxis VTE prophylaxis: mechanical ordered and pharmacologic ordered
[2024-12-12] MEDS: DEXTROSE 50% 25 GM/50 ML SYRINGE IV PUSH (08:08)
[2024-12-12 08:13] LABS: Hematocrit 27.3 % (42.0-52.0); Hemoglobin 8.9 g/dL (14.0-18.0); Immature Granulocyte Percent A 0.7 % (0-0.5); Lymphocytes Absolute Auto 0.71 K/mm3 (0.9-3.2); Mean Corpuscular HGB Conc 32.6 g/dl (32-36); Mean Corpuscular Hemoglobin 29.5 pg (26-34); Mean Corpuscular Volume 90.4 fl (80-100); Nucleated Red Blood Cells Absolute Auto 0.000 K/mm3 (0.0-0.012); Nucleated Red Blood Cells Perc 0.0 % (0.0-0.2); Platelet Count Result 229 k/mm3 (150-375); Red Blood Count 3.02 M/mm3 (4.6-6.20); White Blood Count 13.0 K/mm3 (4.5-10.0)
[2024-12-12] MEDS: VANCOMYCIN 1,500 MG/NS 500 ML 1,500 MG/500 ML BAG 250 MG IVPB (08:17)
[2024-12-12 08:57] LABS: Alanine Aminotransferase 11 U/L (6-50); Albumin Level 2.7 g/dL (3.5-5.1); Alkaline Phosphatase 97 U/L (38-126); Anion Gap 8 mmol/L (4-12); Aspartate Amino Transferase 31 U/L (17-59); Bilirubin,Total 0.8 mg/dL (0.2-1.3); Blood Urea Nitrogen 17 mg/dL (9-20); CRP 19.9 mg/dL (<1.0); Calcium 8.6 mg/dL (8.4-10.2); Carbon Dioxide 24 mmol/L (22-30); Chloride 98 mmol/L (98-107); Estimated CRCL calculation 105 ml/min; Estimated Glomerular Filt Rate > 60; Glucose 76 mg/dL (65-110); Magnesium 1.7 mg/dL (1.6-2.3); Potassium 4.2 mmol/L (3.4-5.0); Sodium 130 mmol/L (137-145); Total Protein 5.9 g/dL (6.3-8.2)
[2024-12-12 09:19] LABS: Procalcitonin 1.1 ng/mL
--- NOTE | 2024-12-12 09:29 | WPDHPUPDATE1 ---
History and Physical Update Update Date/Time: 12/12/24 09:29 History and Physical has been reviewed, including an updated exam of the patient. There are NO changes in the patient's condition. Risks, benefits, and alternatives have been discussed and questions answered. Patient agrees to proceed with procedure.
--- NOTE | 2024-12-12 10:06 | P.PNAN_ITS ---
Anes - Prog Note Post-Op Date/Time: 12/12/24 10:06 Vital Signs: Last Vital Signs Temp 36.6 C 12/12/24 05:48 Pulse 73 12/12/24 08:00 Resp 16 12/12/24 05:48 BP 126/59 L 12/12/24 05:48 Pulse Ox 91 12/12/24 05:48 O2 Del Method Room Air 12/12/24 08:00 Pain Score (VAS): n/a I/O: Intake & Output 12/11/24 12/12/24 12/12/24 23:59 07:59 15:59 Intake Total 890 400 Output Total 550 Balance 890 -150 Laboratory Tests 12/12/24 08:03 12/12/24 08:03 12/11/24 12/11/24 12/11/24 12:01 16:38 16:50 WBC RBC Hgb Hct MCV MCH MCHC RDW Plt Count MPV Immature Gran % (Auto) Neut % (Auto) Lymph % (Auto) [place] % (Auto) Eos % (Auto) Baso % (Auto) Lymph # (Auto) [place] # (Auto) Eos # (Auto) Baso # (Auto) Abs Immat Gran (auto) Absolute Neuts (auto) Absolute Nucleated RBC Nucleated RBC % ESR > 140 H Sodium Potassium Chloride Carbon Dioxide Anion Gap BUN Creatinine Estim Creat Clear Calc Estimated GFR Glucose POC Capillary Glucose 180 H 123 H Calcium Magnesium Total Bilirubin AST ALT Alkaline Phosphatase C-Reactive Protein Total Protein Albumin Procalcitonin Vancomycin Trough 12/11/24 12/12/24 12/12/24 20:33 02:31 07:49 WBC RBC Hgb Hct MCV MCH MCHC RDW Plt Count MPV Immature Gran % (Auto) Neut % (Auto) Lymph % (Auto) [place] % (Auto) Eos % (Auto) Baso % (Auto) Lymph # (Auto) [place] # (Auto) Eos # (Auto) Baso # (Auto) Abs Immat Gran (auto) Absolute Neuts (auto) Absolute Nucleated RBC Nucleated RBC % ESR Sodium Potassium Chloride Carbon Dioxide Anion Gap BUN Creatinine Estim Creat Clear Calc Estimated GFR Glucose POC Capillary Glucose 108 H 71 70 Calcium Magnesium Total Bilirubin AST ALT Alkaline Phosphatase C-Reactive Protein Total Protein Albumin Procalcitonin Vancomycin Trough 08/28/25 08/28/25 08/28/25 08:03 08:34 09:42 WBC 13.0 H RBC 3.02 L Hgb 8.9 L Hct 27.3 L MCV 90.4 MCH 29.5 MCHC 32.6 RDW 12.1 Plt Count 229 MPV 9.0 Immature Gran % (Auto) 0.7 H Neut % (Auto) 84.3 H Lymph % (Auto) 5.5 L [place] % (Auto) 8.9 H Eos % (Auto) 0.4 Baso % (Auto) 0.2 Lymph # (Auto) 0.71 L [place] # (Auto) 1.2 H Eos # (Auto) 0.1 Baso # (Auto) 0.0 Abs Immat Gran (auto) 0.09 H Absolute Neuts (auto) 10.9 H Absolute Nucleated RBC 0.000 Nucleated RBC % 0.0 ESR Sodium 130 L Potassium 4.2 Chloride 98 Carbon Dioxide 24 Anion Gap 8 BUN 17 Creatinine 0.61 L Estim Creat Clear Calc 105 Estimated GFR > 60 Glucose 76 POC Capillary Glucose 107 H 86 Calcium 8.6 Magnesium 1.7 Total Bilirubin 0.8 AST 31 ALT 11 Alkaline Phosphatase 97 C-Reactive Protein 19.9 H Total Protein 5.9 L Albumin 2.7 L Procalcitonin 1.1 Vancomycin Trough 12.5 Other Findings: patient to high risk for anesthesia, plan changed to local only
--- NOTE | 2024-12-12 10:52 | W.PM.PROC2 ---
Procedure Note - Detailed Date of Procedure 12/12/24 Pre-op Diagnosis Bilateral diabetic foot ulcer Post-op Diagnosis Same Procedure Performed Excisional debridement including bone layer left foot 4 x 4cm, excisional debridement including bone right foot 2 x 1 cm Surgeon Blair Coreas MD Anesthesia Local Indications 69-year-old gentleman with diabetes and peripheral neuropathy and chronic bilateral diabetic foot ulcers. Left foot now infected. Presents for operative treatment. Findings Left foot plantar heel ulcer 4 x 4 cm with 6 cm tunneling along the plantar foot extending distally at the 1 o'clock position. Purulent material. Involving plantar calcaneus. Right foot 2 x 1 cm ulcer 4th metatarsal head with exposure of the metatarsal head. Description of Procedure Patient identified in the preoperative holding. Informed consent given. Operative extremity marked. Patient received intravenous antibiotics. Patient brought to the operating room where underwent general anesthetic by anesthesia team. Positioned supine on operating room table. Time-out performed confirming the patient, site of the surgery and the plan. Left and right foot prepped and draped in the usual sterile surgical fashion using Betadine prep solution. Left foot addressed 1st. 15 blade knife used to sharply excise skin, subcutaneous tissue and muscle from the plantar heel. Tissue was passed off. [place] used to debride the plantar calcaneus. Probing was noted along the plantar aspect of the foot anterior to the calcaneus 6 cm. Thoroughly irrigated with antibiotic saline. Packed with Betadine-soaked gauze and sterile dressing. Right foot then addressed. 15 blade knife used to sharply debride the skin, subcutaneous tissue muscle from the plantar forefoot. Tissue was passed off. Bone excised with rongeur and passed off from the plantar 4th metatarsal. Wound irrigated with antibiotic saline and packed with Betadine gauze and sterile dressing. Sterile dressing applied. The patient was then taken to the recovery room in stable condition. All sponge, needle, instrument counts were correct at the end of the case. Implants None Estimated Blood Loss 10 Tourniquet Time Total Tourniquet Time: 0 Urine Output 550 Drains No Packing Yes (Betadine gauze) Pathology None sent Complications None Condition Stable Disposition PACU [facility] Billing Surgery - Charge Forward: Surgery Billing ([id number] - RT, [id number] - LT)
[2024-12-12] MEDS: EMPAGLIFLOZIN 10 MG TABLET PO (12:04)
[2024-12-12] MEDS: SACUBITRIL/VALSARTAN 24-26 MG TABLET 1 TAB PO ×2 (12:05→20:05)
[2024-12-12] MEDS: SPIRONOLACTONE 25 MG TABLET PO (12:05)
[2024-12-12] MEDS: ROSUVASTATIN 5 MG TABLET PO (12:05)
[2024-12-12] MEDS: ENOXAPARIN 40 MG/0.4 ML SYRINGE SUB-Q (12:06)
[2024-12-12] MEDS: VANCOMYCIN 2,000 MG/NS 500 ML 2,000 MG/500 ML BAG 250 MG IVPB (20:06)
[2024-12-12] MEDS: ACETAMINOPHEN 500 MG TABLET 1000 MG PO (20:10)
[2024-12-12] MEDS: INSULIN GLARGINE (*BKC) 100 UNITS/ML 18 UNITS SUB-Q (20:12)
[2024-12-13] VITALS (11 sets, daily range): BP systolic 133–145; BP diastolic 65–79; PULSE 61–82; RESP 14–18; TEMP 36.1–36.8; O2SAT 98–100
[2024-12-13 06:20] LABS: Hematocrit 28.6 % (42.0-52.0); Hemoglobin 9.2 g/dL (14.0-18.0); Immature Granulocyte Percent A 0.6 % (0-0.5); Lymphocytes Absolute Auto 0.85 K/mm3 (0.9-3.2); Mean Corpuscular HGB Conc 32.2 g/dl (32-36); Mean Corpuscular Hemoglobin 29.0 pg (26-34); Mean Corpuscular Volume 90.2 fl (80-100); Nucleated Red Blood Cells Absolute Auto 0.000 K/mm3 (0.0-0.012); Nucleated Red Blood Cells Perc 0.0 % (0.0-0.2); Platelet Count Result 249 k/mm3 (150-375); Red Blood Count 3.17 M/mm3 (4.6-6.20); White Blood Count 14.1 K/mm3 (4.5-10.0)
[2024-12-13] MEDS: CEFEPIME 2 GM in SODIUM CHLORIDE 0.9% IV 50 ML 100 ML IVPB ×2 (06:22→17:31)
[2024-12-13] MEDS: metroNIDAZOLE 500 MG/ISO 100ML 500 MG/100 ML BAG 100 MG IVPB (06:22)
[2024-12-13 06:41] LABS: Alanine Aminotransferase 10 U/L (6-50); Albumin Level 2.6 g/dL (3.5-5.1); Alkaline Phosphatase 94 U/L (38-126); Anion Gap 6 mmol/L (4-12); Aspartate Amino Transferase 20 U/L (17-59); Bilirubin,Total 0.6 mg/dL (0.2-1.3); Blood Urea Nitrogen 18 mg/dL (9-20); Calcium 8.4 mg/dL (8.4-10.2); Carbon Dioxide 25 mmol/L (22-30); Chloride 101 mmol/L (98-107); Estimated CRCL calculation 107 ml/min; Estimated Glomerular Filt Rate > 60; Glucose 82 mg/dL (65-110); Magnesium 1.8 mg/dL (1.6-2.3); Potassium 3.7 mmol/L (3.4-5.0); Sodium 132 mmol/L (137-145); Total Protein 5.9 g/dL (6.3-8.2)
[2024-12-13 06:55] LABS: Procalcitonin 0.7 ng/mL
[2024-12-13 06:56] LABS: CRP 18.0 mg/dL (<1.0)
--- NOTE | 2024-12-13 07:50 | P.PNIM_ITS ---
Progress Note: A&P Assessment and Plan (1) Heel ulcer due to DM: Qualifiers: Diabetes mellitus type: type 2 Laterality: left Non-pressure ulcer stage: with necrosis of muscle Qualified Code(s): E11.621 - Type 2 diabetes mellitus with foot ulcer; L97.423 - Non-pressure chronic ulcer of left heel and midfoot with necrosis of muscle Code(s): E11.621 - Type 2 diabetes mellitus with foot ulcer; L97.409 - Non-pressure chronic ulcer of unspecified heel and midfoot with unspecified severity Status: Acute Assessment and Plan: * Pressure ulcer noted on lateral left heel * Purulence foul smelling drainage for the past several days prior to admission * Likely now has secondary sepsis given increased lethargy, hypotension and fevers * Wound care consulted - appreciate further recommendations * Orthopedics consulted * Plan further debridement when medically stable * Continue IV antibiotics * Start Dakin's solution dressing changes * Post Op 12/12: Excisional debridement including bone layer L foot 4x4cm, excisional debridement including bone R foot 2x1cm * Findings: Left foot plantar heel ulcer 4 x 4 cm with 6 cm tunneling along the plantar foot extending distally at the 1 o'clock position. Purulent material. Involving plantar calcaneus. Right foot 2 x 1 cm ulcer 4th metatarsal head with exposure of the metatarsal head. * Per orthopedics: Continue IV antibiotics, monitoring of lower extremity wounds with continued debridement tentatively scheduled for 94 * Wound culture pending (2) Diabetic foot infection: Code(s): E11.628 - Type 2 diabetes mellitus with other skin complications; L08.9 - Local infection of the skin and subcutaneous tissue, unspecified Status: Acute Assessment and Plan: * See above (3) Sepsis: Code(s): A41.9 - Sepsis, unspecified organism Status: Acute Assessment and Plan: * Meets SIRS criteria: Tachycardia, leukocytosis, tachypnea * lactic acid: 1.5 * suspected source: Diabetic foot wound * UA: 3-5 urine RBC, trace ketones, 3+ glucose * CXR: Opacity at the medial left mid to lower lung zone which could be related to persistent lingular atelectasis/scarring although differential includes pneumonia. * Denies any shortness of breath or cough, less likely pneumonia * Monitor daily labs * Continue cefepime, vancomycin and Flagyl * Blood cultures drawn on 12/10 - pending * Wound cultures drawn on 12/11 - pending (4) CHF (congestive heart failure): Code(s): I50.9 - Heart failure, unspecified Status: Acute Assessment and Plan: * Denies any shortness of breath or lower extremity swelling * Does not appear to be volume overloaded on exam * EKG: Sinus rhythm with occasional supraventricular premature complexes, left axis deviation, 92 rate, 351 QT * Chest XR: Opacity at the medial left mid to lower lung zone which could be related to persistent lingular atelectasis/scarring although differential includes pneumonia. * Monitor vital signs, I&Os, BUN/creatinine, daily weights, neuro status and patient is a fall risk * Monitor serum electrolytes, Keep serum Potassium>4 and serum Magnesium>2 and CBC * Continue Jardiance * Per outpatient cardiology note on 12/09/2024: * Ambulatory referral to Cardiac electrophysiology at [facility] [place] for possible ICD for SCD prevention * Spoke with Denise Lopes of Cardiology who's office the pt went to on 12/09 who stated that this would be purely an outpatient procedure and that the patient would NOT need to be transferred from this facility (5) Type 2 diabetes mellitus with hyperglycemia: Qualifiers: Diabetes mellitus skilled nursing insulin use: with oil heaterman use Qualified Code(s): E11.65 - Type 2 diabetes mellitus with hyperglycemia; Z79.4 - [facility] (current) use of insulin Code(s): E11.65 - Type 2 diabetes mellitus with hyperglycemia Status: Acute Assessment and Plan: * Hypoglycemia protocol * POC blood glucose ACHS * Home medication -continue Jardiance, Metformin on held * Correct regimen ordered - low dose TIDWM and Lantus 18 units HS * A1C 8.5 (down from 11.3 in 09/08) (6) Non-pressure chronic ulcer of other part of right foot with necrosis of muscle: Code(s): L97.513 - Non-pressure chronic ulcer of other part of right foot with necrosis of muscle Status: Acute Assessment and Plan: * Chronic right foot ulcer with deformity of the 3/4 metatarsophalangeal joints * Previous osteomyelitis * Orthopedics consulted * Would benefit from surgical excision of joints with relief of pressure and closure of ulceration * Surgical realignment of toes * Will proceed when patient is medically stable * Continue IV antibiotics * Monitor WBC, blood cultures (7) CAD (coronary artery disease): Qualifiers: Associated angina: with stable angina Coronary Disease-Associated Artery/Lesion type: [place] artery [place] vs. transplanted heart: [place] heart Qualified Code(s): I25.118 - Atherosclerotic heart disease of [place] coronary artery with other forms of angina pectoris Code(s): I25.10 - Atherosclerotic heart disease of [place] coronary artery without angina pectoris Status: Acute Assessment and Plan: * S/p stents and CABG * Restarted home medications (8) Fall: Code(s): W19.XXXA - Unspecified fall, initial encounter Status: Acute Assessment and Plan: * Mechanical fall at home prior to admission, denies any LOC but reports it was difficult to get up from fall * Head is atraumatic, no neurological deficits appreciated on exam * Likely secondary to underlying lower extremity chronic wounds, patient endorses difficulty with ambulation in general * Head CT: No intracranial abnormalities * PT/OT evaluations for discharge planning Subjective Date/time seen: 12/13/24 07:50 Interval history: 69 year old Male with a past medical history of T2DM, CAD s/p stents and CABG , and Ischemic cardiomyopathy who presents to the hospital for wounds on both of his feet. 12/13/2024 Patient sitting comfortably in bed at time examination. Post op Excisional debridement of L & R foot on 12/12. Pt tolerated procedure well, without complications. General surgery recommends continued admission with IV antibiotics until they can debride feet again, tentatively scheduled for 12/19. Pt amenable to this plan, no complaints or concerns at this time. Review of Systems Review of Systems: All systems reviewed & are unremarkable except as noted in HPI and below Exam Narrative: Gen - well appearing male in no acute respiratory distress who is nontoxic- appearing lying semi recumbent in bed HEENT - normocephalic. Atraumatic. Pupils equal round and reactive. Extraocular motions intact. Sclera clear and anicteric. Moist mucous membranes. Neck - neck was supple. No dominant adenopathy, thyromegaly or masses. Chest - lungs are clear to auscultation bilaterally. No wheezes or crackles. CV - heart was regular rate and rhythm. S1-S2. No murmurs gallops or rubs. Abd - abdomen was soft. Nontender. Nondistended. Positive bowel sounds. Ext - no clubbing, cyanosis or edema. 2+ DP pulses bilaterally. Neuro - patient is alert and oriented x4. Strength is 5/5 in both upper and lo wer extremities. Cranial nerves 2-12 are intact. Speech is clear. Psych - normal mood and affect. Patient is pleasant and cooperative. Skin - R 1st toe - ulcer at base, erythema and tenderness. L foot - heel wound, deep Objective Data Vital Signs Vital Signs: Vital Signs - 24 hr 12/12/24 08:00 12/12/24 08:00 12/12/24 09:30 Temperature 98 F Pulse Rate 73 75 Respiratory Rate 16 Blood Pressure 124/64 Pulse Oximetry 98 Oxygen Delivery Room Air Room Air 12/12/24 10:15 12/12/24 10:25 12/12/24 10:35 Temperature Pulse Rate 82 77 76 Respiratory Rate 16 16 16 Blood Pressure 129/67 143/75 H 138/75 Pulse Oximetry 97 95 95 Oxygen Delivery Room Air Room Air Room Air 12/12/24 12:00 12/12/24 12:05 12/12/24 14:00 Temperature 97 F L Pulse Rate 73 76 77 Respiratory Rate 14 Blood Pressure 126/65 Pulse Oximetry 100 Oxygen Delivery 12/12/24 16:00 12/12/24 20:00 12/12/24 20:00 Temperature Pulse Rate 79 79 77 Respiratory Rate 14 Blood Pressure Pulse Oximetry 100 Oxygen Delivery Room Air 12/12/24 21:52 12/13/24 00:00 12/13/24 04:00 Temperature 99.0 F Pulse Rate 79 61 66 Respiratory Rate 14 Blood Pressure 148/73 H Pulse Oximetry 95 Oxygen Delivery 12/13/24 05:45 Temperature 97.0 F L Pulse Rate 69 Respiratory Rate 14 Blood Pressure 137/65 Pulse Oximetry 98 Oxygen Delivery Intake/Output Intake/Output: Intake & Output 12/10/24 12/11/24 12/12/24 12/13/24 23:59 23:59 23:59 23:59 Intake Total 2550 2270 1880 1050 Output Total 1100 Balance 2550 2270 780 1050 Meds/Results Medications: Active Medications Generic Name Dose Route Start Last Admin Trade Name Freq PRN Reason Stop Dose Admin Acetaminophen 1,000 mg 12/11/24 01:36 12/12/24 20:10 Acetaminophen 500 Mg Tablet PO 1,000 mg Q6H PRN Administration Pain or Fever Carvedilol 12.5 mg 12/11/24 09:00 12/12/24 20:06 Carvedilol 12.5 Mg Tablet PO 12.5 mg Q12HR RANDA Administration Dextrose 12.5 gm 12/11/24 01:38 12/12/24 08:08 Dextrose 50% 25 Gm/50 Ml Syringe IV PUSH 12.5 gm PRN PRN Administration Hypoglycemia Protocol Empagliflozin 10 mg 12/11/24 09:00 12/12/24 12:04 Empagliflozin 10 Mg Tablet PO 10 mg DAILY RANDA Administration Enoxaparin Sodium 40 mg 12/11/24 09:00 12/12/24 12:06 Enoxaparin 40 Mg/0.4 Ml Syringe SUB-Q 40 mg DAILY RANDA Administration Glucagon 1 mg 12/11/24 01:38 Glucagon For Inj 1 Mg Vial IM PRN PRN Hypoglycemia Protocol Glucose 15 gm 12/11/24 01:38 Glucose Oral Gel 15 Gm Of Glucse In 37.5 Gm Tube PO PRN PRN Hypoglycemia Protocol Cefepime HCl 2 gm/ Sodium 50 mls @ 100 mls/hr 12/11/24 06:00 12/13/24 06:22 Chloride IVPB 100 mls/hr Q12H RANDA Administration Metronidazole 500 mg in 100 mls @ 100 mls/hr 12/11/24 05:00 12/13/24 06:22 Flagyl 500 Mg/Iso Soln 100 Ml IVPB 100 mls/hr Q8H RANDA Administration Dextrose 1,000 mls @ 100 mls/hr 12/11/24 01:38 Dextrose 5% 1,000 Ml IVPB PRN PRN Hypoglycemia Protocol Vancomycin HCl 2,000 mg in 500 mls @ 250 mls/hr 12/12/24 20:00 12/13/24 06:23 Vancomycin 2,000 Mg/Ns 500 Ml IVPB Infused Q12H RANDA Infusion Insulin Aspart 3 - 6 units 12/11/24 08:00 12/12/24 17:25 Insulin Aspart (*Bkc) 100 Units/Ml SUB-Q Not Given TIDWM RANDA Protocol Insulin Glargine 18 units 12/11/24 21:00 12/12/24 20:12 Insulin Glargine (*Bkc) 100 Units/Ml SUB-Q 18 units QHS RANDA Administration Meclizine HCl 50 mg 12/11/24 01:46 Meclizine Hcl 25 Mg Tablet PO BID PRN nausea/dizziness/anxiety Rosuvastatin Calcium 5 mg 12/11/24 09:00 12/12/24 12:05 Rosuvastatin 5 Mg Tablet PO 5 mg DAILY RANDA Administration Sacubitril/Valsartan 1 tab 12/11/24 09:00 12/12/24 20:05 Sacubitril/Valsartan 24-26 Mg Tablet PO 1 tab Q12HR RANDA Administration Sodium Hypochlorite 1 applic 12/11/24 09:00 12/11/24 21:44 Sod Hypochlorite 1/4 Strength 473 Ml TOPICAL 1 applic Q12HR RANDA Administration Spironolactone 25 mg 12/11/24 09:00 12/12/24 12:05 Spironolactone 25 Mg Tablet PO 25 mg QAM RANDA Administration Radiology Results: ITS Impressions Foot X-Ray 12/10/24 18:28 IMPRESSION: 1. Deep erosion plantar to the left calcaneus with lucent gas extending to the level of the posterior tuberosity of the calcaneus but without evident osteolysis to suggest osteomyelitis. 2. Juxta articular erosions with overhanging edges at the medial aspect of the heads of the bilateral first proximal phalanges and at the order side of the right third and fourth metatarsal heads with appearance suspicious for gout. 3. Significant dorsal subluxation, potentially dislocation at the third and fourth metatarsophalangeal joints with suggestion of severe osteoarthritis with remodeling of the base of the fourth proximal phalanx. 4. 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 Foot X-Ray 12/10/24 18:28 IMPRESSION: 1. Deep erosion plantar to the left calcaneus with lucent gas extending to the level of the posterior tuberosity of the calcaneus but without evident o steolysis to suggest osteomyelitis. 2. Juxta articular erosions with overhanging edges at the medial aspect of the heads of the bilateral first proximal phalanges and at the order side of the right third and fourth metatarsal heads with appearance suspicious for gout. 3. Significant dorsal subluxation, potentially dislocation at the third and fourth metatarsophalangeal joints with suggestion of severe osteoarthritis with remodeling of the base of the fourth proximal phalanx. 4. 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 Chest X-Ray 12/10/24 20:05 IMPRESSION: 1. Opacity at the medial left mid to lower lung zone which could be related to persistent lingular atelectasis/scarring although differential includes pneumonia. Head CT 12/11/24 13:27 IMPRESSION: 1. No acute intracranial abnormality. Labs Labs: Laboratory Results - last 24 hr 12/12/24 12/12/24 12/12/24 07:49 08:03 08:34 WBC 13.0 H RBC 3.02 L Hgb 8.9 L Hct 27.3 L MCV 90.4 MCH 29.5 MCHC 32.6 RDW 12.1 Plt Count 229 MPV 9.0 Immature Gran % (Auto) 0.7 H Neut % (Auto) 84.3 H Lymph % (Auto) 5.5 L [place] % (Auto) 8.9 H Eos % (Auto) 0.4 Baso % (Auto) 0.2 Lymph # (Auto) 0.71 L [place] # (Auto) 1.2 H Eos # (Auto) 0.1 Baso # (Auto) 0.0 Abs Immat Gran (auto) 0.09 H Absolute Neuts (auto) 10.9 H Absolute Nucleated RBC 0.000 Nucleated RBC % 0.0 ESR Sodium 130 L Potassium 4.2 Chloride 98 Carbon Dioxide 24 Anion Gap 8 BUN 17 Creatinine 0.61 L Estim Creat Clear Calc 105 Estimated GFR > 60 Glucose 76 POC Capillary Glucose 70 107 H Calcium 8.6 Magnesium 1.7 Total Bilirubin 0.8 AST 31 ALT 11 Alkaline Phosphatase 97 C-Reactive Protein 19.9 H Total Protein 5.9 L Albumin 2.7 L Procalcitonin 1.1 Vancomycin Trough 12.5 12/12/24 12/12/24 12/12/24 09:42 11:26 16:48 WBC RBC Hgb Hct MCV MCH MCHC RDW Plt Count MPV Immature Gran % (Auto) Neut % (Auto) Lymph % (Auto) [place] % (Auto) Eos % (Auto) Baso % (Auto) Lymph # (Auto) [place] # (Auto) Eos # (Auto) Baso # (Auto) Abs Immat Gran (auto) Absolute Neuts (auto) Absolute Nucleated RBC Nucleated RBC % ESR Sodium Potassium Chloride Carbon Dioxide Anion Gap BUN Creatinine Estim Creat Clear Calc Estimated GFR Glucose POC Capillary Glucose 86 97 126 H Calcium Magnesium Total Bilirubin AST ALT Alkaline Phosphatase C-Reactive Protein Total Protein Albumin Procalcitonin Vancomycin Trough 12/12/24 12/12/24 12/13/24 17:00 20:12 05:59 WBC 14.1 H RBC 3.17 L Hgb 9.2 L Hct 28.6 L MCV 90.2 MCH 29.0 MCHC 32.2 RDW 12.0 Plt Count 249 MPV 9.0 Immature Gran % (Auto) 0.6 H Neut % (Auto) 84.0 H Lymph % (Auto) 6.0 L [place] % (Auto) 8.3 Eos % (Auto) 0.9 Baso % (Auto) 0.2 Lymph # (Auto) 0.85 L [place] # (Auto) 1.2 H Eos # (Auto) 0.1 Baso # (Auto) 0.0 Abs Immat Gran (auto) 0.09 H Absolute Neuts (auto) 11.8 H Absolute Nucleated RBC 0.000 Nucleated RBC % 0.0 ESR > 140 H Sodium 132 L Potassium 3.7 Chloride 101 Carbon Dioxide 25 Anion Gap 6 BUN 18 Creatinine 0.60 L Estim Creat Clear Calc 107 Estimated GFR > 60 Glucose 82 POC Capillary Glucose 177 H Calcium 8.4 Magnesium 1.8 Total Bilirubin 0.6 AST 20 ALT 10 Alkaline Phosphatase 94 C-Reactive Protein 18.0 H Total Protein 5.9 L Albumin 2.6 L Procalcitonin 0.7 Vancomycin Trough Quality VTE Prophylaxis VTE prophylaxis: mechanical ordered and pharmacologic ordered
[2024-12-13] MEDS: EMPAGLIFLOZIN 10 MG TABLET PO (08:27)
[2024-12-13] MEDS: ENOXAPARIN 40 MG/0.4 ML SYRINGE SUB-Q (08:27)
[2024-12-13] MEDS: SACUBITRIL/VALSARTAN 24-26 MG TABLET 1 TAB PO ×2 (08:27→21:11)
[2024-12-13] MEDS: SPIRONOLACTONE 25 MG TABLET PO (08:27)
[2024-12-13] MEDS: ROSUVASTATIN 5 MG TABLET PO (08:27)
[2024-12-13] MEDS: VANCOMYCIN 2,000 MG/NS 500 ML 2,000 MG/500 ML BAG 250 MG IVPB ×2 (08:27→21:11)
--- NOTE | 2024-12-13 11:27 | P.PNOP_ITS ---
Progress Note: A&P Assessment and Plan (1) Type 2 diabetes mellitus with diabetic neuropathy: Qualifiers: Diabetes mellitus senior care insulin use: with senior care use Qualified Code(s): E11.40 - Type 2 diabetes mellitus with diabetic neuropathy, unspecified; Z79.4 - alf (current) use of insulin Code(s): E11.40 - Type 2 diabetes mellitus with diabetic neuropathy, unspecified Status: Acute (2) Diabetic foot infection: Code(s): E11.628 - Type 2 diabetes mellitus with other skin complications; L08.9 - Local infection of the skin and subcutaneous tissue, unspecified Status: Acute Assessment and Plan: Postoperative day 1 bilateral foot debridement. Dressing changed today. Right foot remains clean. Planned silver gel gauze dressing changes. Left foot still with some foul odor but much improved. Less swelling and erythema noted. Plan to continue with Dakin's solution gauze dressing changes b.i.d.. Requires more surgical treatment, however, patient at risk due to heart failure and poor cardiac function. Will discuss with Cardiology and hospitalist. Continue IV antibiotics. Awaiting culture results. Subjective Subjective Date/Time Seen: 12/13/24 11:27 Post Op day: 1 Principal diagnosis: Bilateral diabetic foot ulcers Interval history: patient awake, sitting up in bed. No complaints of pain. States appetite has improved. Tolerating diet. Exam Const: General: awake, acute distress mild, diaphoretic and ill appearing acutely Orientation/consciousness: oriented to person, oriented to place, oriented to time and No confusion HENMT: Head: normal to inspection, normocephalic and atraumatic Neck: Neck: supple and nontender Resp: Effort & Inspection: normal respiratory effort GI: Inspection: non-distended GI Palp: Yes Soft to palpation Neuro: Cognition (Neuro): normal cognition Speech: normal speech Extrem: Right upper extremity: normal to inspection Left upper extremity: normal to inspection Right lower extremity: ankle Details: abnormal to inspection, swelling ( 3+) Details: diffusely, abnormal ROM Details: with range as follows (ankle dorsiflexion -10 degrees, plantar flexion 40?, inversion 15?, eversion 15?) and other ( good stability all directions); no tenderness and no ecchymosis and foot Details: abnormal to inspection ( extension deformity of the 3rd and 4th toe) Details: other ( 1 x 1 cm ulcer plantar forefoot under the 4th metatarsal head surrounding callus. No surrounding erythema. No drainage.), abnormal ROM of toe ( hallux MTP dorsiflexion 40, plantar flexion 20?), vascular exam Details: abnormal capillary refill Location: of all toes; dorsalis pedis pulse absent and posterior tibial pulse absent, tendon exam Details: active flexion abnormal and active extension abnormal, motor-sensory exam Details: two point discrimination abnormal Location: in all toes and light-touch abnormal Location: in all toes and other (Hallux metatarsophalangeal motion 20? dorsiflexion/10? plantar flexion) Left lower extremity: ankle Details: normal to inspection and abnormal ROM Details: with range as follows (ankle dorsiflexion -10 degrees, plantar flexion 40?, inversion 15?, eversion 15?); no tenderness and no swelling and foot Details: tenderness, abnormal ROM of toe, warmth, edema Location: of the dorsal foot ( 4+), vascular exam Details: abnormal capillary refill Location: of all toes; dorsalis pedis pulse absent and posterior tivial pulse absent, tendon exam active flexion abnormal of the great toe and active extension abnormal of the great toe and motor-sensory exam two point discrimination abnormal and light-touch abnormal in all toes; abnormal capillary refill and no crepitus Other: Dressing changed. Wound on the plantar aspect of the right 4th MTP joint measures 1.0x1.0x1.0 cm. 100% red/pink wound bed. No signs of active infection. Dressing changed. Wound on the calcaneus of the left heel measures 5x3x6.0 cm, Purulent drainage with foul odor. Probes to bone. Surrounding soft tissue swollen with erythema extending around the heel- Improved. Psych: Mental Status: mental status grossly normal Affect: normal affect Objective Data Vital Signs Vital Signs: Vital Signs - 24 hr 12/12/24 12:00 12/12/24 12:05 12/12/24 14:00 Temperature 97 F L Pulse Rate 73 76 77 Respiratory Rate 14 Blood Pressure 126/65 Pulse Oximetry 100 Oxygen Delivery 12/12/24 16:00 12/12/24 20:00 12/12/24 20:00 Temperature Pulse Rate 79 79 77 Respiratory Rate 14 Blood Pressure Pulse Oximetry 100 Oxygen Delivery Room Air 12/12/24 21:52 12/13/24 00:00 12/13/24 04:00 Temperature 99.0 F Pulse Rate 79 61 66 Respiratory Rate 14 Blood Pressure 148/73 H Pulse Oximetry 95 Oxygen Delivery 12/13/24 05:45 12/13/24 08:00 12/13/24 08:27 Temperature 97.0 F L Pulse Rate 69 79 69 Respiratory Rate 14 Blood Pressure 137/65 Pulse Oximetry 98 Oxygen Delivery 12/13/24 08:30 Temperature Pulse Rate Respiratory Rate Blood Pressure Pulse Oximetry Oxygen Delivery Room Air Intake/Output Intake/Output: Intake & Output 12/10/24 12/11/24 12/12/24 12/13/24 23:59 23:59 23:59 23:59 Intake Total 2550 2270 1880 1290 Output Total 1100 Balance 2550 2270 780 1290 Meds/Results Medications: Active Medications Generic Name Dose Route Start Last Admin Trade Name Freq PRN Reason Stop Dose Admin Acetaminophen 1,000 mg 12/11/24 01:36 12/12/24 20:10 Acetaminophen 500 Mg Tablet PO 1,000 mg Q6H PRN Administration Pain or Fever Carvedilol 12.5 mg 12/11/24 09:00 12/13/24 08:27 Carvedilol 12.5 Mg Tablet PO 12.5 mg Q12HR RANDA Administration Dextrose 12.5 gm 12/11/24 01:38 12/12/24 08:08 Dextrose 50% 25 Gm/50 Ml Syringe IV PUSH 12.5 gm PRN PRN Administration Hypoglycemia Protocol Empagliflozin 10 mg 12/11/24 09:00 12/13/24 08:27 Empagliflozin 10 Mg Tablet PO 10 mg DAILY RANDA Administration Enoxaparin Sodium 40 mg 12/11/24 09:00 12/13/24 08:27 Enoxaparin 40 Mg/0.4 Ml Syringe SUB-Q 40 mg DAILY RANDA Administration Glucagon 1 mg 12/11/24 01:38 Glucagon For Inj 1 Mg Vial IM PRN PRN Hypoglycemia Protocol Glucose 15 gm 12/11/24 01:38 Glucose Oral Gel 15 Gm Of Glucse In 37.5 Gm Tube PO PRN PRN Hypoglycemia Protocol Cefepime HCl 2 gm/ Sodium 50 mls @ 100 mls/hr 12/11/24 06:00 12/13/24 06:22 Chloride IVPB 100 mls/hr Q12H RANDA Administration Metronidazole 500 mg in 100 mls @ 100 mls/hr 08/27/25 05:00 12/13/24 06:22 Flagyl 500 Mg/Iso Soln 100 Ml IVPB 100 mls/hr Q8H RANDA Administration Dextrose 1,000 mls @ 100 mls/hr 12/11/24 01:38 Dextrose 5% 1,000 Ml IVPB PRN PRN Hypoglycemia Protocol Vancomycin HCl 2,000 mg in 500 mls @ 250 mls/hr 12/12/24 20:00 12/13/24 08:27 Vancomycin 2,000 Mg/Ns 500 Ml IVPB 250 mls/hr Q12H RANDA Administration Insulin Aspart 3 - 6 units 12/11/24 08:00 12/13/24 08:22 Insulin Aspart (*Bkc) 100 Units/Ml SUB-Q Not Given TIDWM RANDA Protocol Insulin Glargine 18 units 12/11/24 21:00 12/12/24 20:12 Insulin Glargine (*Bkc) 100 Units/Ml SUB-Q 18 units QHS RANDA Administration Meclizine HCl 50 mg 12/11/24 01:46 Meclizine Hcl 25 Mg Tablet PO BID PRN nausea/dizziness/anxiety Rosuvastatin Calcium 5 mg 12/11/24 09:00 12/13/24 08:27 Rosuvastatin 5 Mg Tablet PO 5 mg DAILY RANDA Administration Sacubitril/Valsartan 1 tab 12/11/24 09:00 12/13/24 08:27 Sacubitril/Valsartan 24-26 Mg Tablet PO 1 tab Q12HR RANDA Administration Sodium Hypochlorite 1 applic 12/11/24 09:00 12/11/24 21:44 Sod Hypochlorite 1/4 Strength 473 Ml TOPICAL 1 applic Q12HR RANDA Administration Spironolactone 25 mg 12/11/24 09:00 12/13/24 08:27 Spironolactone 25 Mg Tablet PO 25 mg QAM RANDA Administration Radiology Results: ITS Impressions Foot X-Ray 12/10/24 18:28 IMPRESSION: 1. Deep erosion plantar to the left calcaneus with lucent gas extending to the level of the posterior tuberosity of the calcaneus but without evident osteolysis to suggest osteomyelitis. 2. Juxta articular erosions with overhanging edges at the medial aspect of the heads of the bilateral first proximal phalanges and at the order side of the right third and fourth metatarsal heads with appearance suspicious for gout. 3. Significant dorsal subluxation, potentially dislocation at the third and fourth metatarsophalangeal joints with suggestion of severe osteoarthritis with remodeling of the base of the fourth proximal phalanx. 4. 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 Foot X-Ray 12/10/24 18:28 IMPRESSION: 1. Deep erosion plantar to the left calcaneus with lucent gas extending to the level of the posterior tuberosity of the calcaneus but without evident osteolysis to suggest osteomyelitis. 2. Juxta articular erosions with overhanging edges at the medial aspect of the heads of the bilateral first proximal phalanges and at the order side of the right third and fourth metatarsal heads with appearance suspicious for gout. 3. Significant dorsal subluxation, potentially dislocation at the third and fourth metatarsophalangeal joints with suggestion of severe osteoarthritis with remodeling of the base of the fourth proximal phalanx. 4. 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 Chest X-Ray 12/10/24 20:05 IMPRESSION: 1. Opacity at the medial left mid to lower lung zone which could be related to persistent lingular atelectasis/scarring although differential includes pneumonia. Head CT 12/11/24 13:27 IMPRESSION: 1. No acute intracranial abnormality. Labs Labs: Laboratory Results - last 24 hr 12/12/24 12/12/24 12/12/24 11:26 16:48 17:00 WBC RBC Hgb Hct MCV MCH MCHC RDW Plt Count MPV Immature Gran % (Auto) Neut % (Auto) Lymph % (Auto) Sumner % (Auto) Eos % (Auto) Baso % (Auto) Lymph # (Auto) Sumner # (Auto) Eos # (Auto) Baso # (Auto) Abs Immat Gran (auto) Absolute Neuts (auto) Absolute Nucleated RBC Nucleated RBC % ESR > 140 H Sodium Potassium Chloride Carbon Dioxide Anion Gap BUN Creatinine Estim Creat Clear Calc Estimated GFR Glucose POC Capillary Glucose 97 126 H Calcium Magnesium Total Bilirubin AST ALT Alkaline Phosphatase C-Reactive Protein Total Protein Albumin Procalcitonin 12/12/24 12/13/24 12/13/24 20:12 05:59 07:47 WBC 14.1 H RBC 3.17 L Hgb 9.2 L Hct 28.6 L MCV 90.2 MCH 29.0 MCHC 32.2 RDW 12.0 Plt Count 249 MPV 9.0 Immature Gran % (Auto) 0.6 H Neut % (Auto) 84.0 H Lymph % (Auto) 6.0 L Sumner % (Auto) 8.3 Eos % (Auto) 0.9 Baso % (Auto) 0.2 Lymph # (Auto) 0.85 L Sumner # (Auto) 1.2 H Eos # (Auto) 0.1 Baso # (Auto) 0.0 Abs Immat Gran (auto) 0.09 H Absolute Neuts (auto) 11.8 H Absolute Nucleated RBC 0.000 Nucleated RBC % 0.0 ESR Sodium 132 L Potassium 3.7 Chloride 101 Carbon Dioxide 25 Anion Gap 6 BUN 18 Creatinine 0.60 L Estim Creat Clear Calc 107 Estimated GFR > 60 Glucose 82 POC Capillary Glucose 177 H 72 Calcium 8.4 Magnesium 1.8 Total Bilirubin 0.6 AST 20 ALT 10 Alkaline Phosphatase 94 C-Reactive Protein 18.0 H Total Protein 5.9 L Albumin 2.6 L Procalcitonin 0.7
[2024-12-13] MEDS: SOD HYPOCHLORITE 1/4 STRENGTH 473 ML 1 APPLIC TOPICAL (12:04)
[2024-12-13] MEDS: INSULIN GLARGINE (*BKC) 100 UNITS/ML 18 UNITS SUB-Q (21:09)
[2024-12-14] VITALS (11 sets, daily range): BP systolic 130–138; BP diastolic 68–78; PULSE 73–85; RESP 18–20; TEMP 36.8–36.9; O2SAT 99–100
[2024-12-14] MEDS: ACETAMINOPHEN 500 MG TABLET 1000 MG PO ×2 (05:13→19:49)
[2024-12-14] MEDS: CEFEPIME 2 GM in SODIUM CHLORIDE 0.9% IV 50 ML 100 ML IVPB ×2 (05:14→17:00)
[2024-12-14 06:54] LABS: Hematocrit 35.1 % (42.0-52.0); Hemoglobin 11.2 g/dL (14.0-18.0); Immature Granulocyte Percent A 0.9 % (0-0.5); Lymphocytes Absolute Auto 0.98 K/mm3 (0.9-3.2); Mean Corpuscular HGB Conc 31.9 g/dl (32-36); Mean Corpuscular Hemoglobin 28.7 pg (26-34); Mean Corpuscular Volume 90.0 fl (80-100); Nucleated Red Blood Cells Absolute Auto 0.000 K/mm3 (0.0-0.012); Nucleated Red Blood Cells Perc 0.0 % (0.0-0.2); Platelet Count Result 317 k/mm3 (150-375); Red Blood Count 3.90 M/mm3 (4.6-6.20); White Blood Count 11.3 K/mm3 (4.5-10.0)
[2024-12-14 07:35] LABS: Procalcitonin 0.6 ng/mL
[2024-12-14 07:39] LABS: Alanine Aminotransferase 16 U/L (6-50); Albumin Level 3.1 g/dL (3.5-5.1); Alkaline Phosphatase 88 U/L (38-126); Anion Gap 8 mmol/L (4-12); Aspartate Amino Transferase 25 U/L (17-59); Bilirubin,Total 0.5 mg/dL (0.2-1.3); Blood Urea Nitrogen 15 mg/dL (9-20); Calcium 8.6 mg/dL (8.4-10.2); Carbon Dioxide 27 mmol/L (22-30); Chloride 97 mmol/L (98-107); Estimated CRCL calculation 109 ml/min; Estimated Glomerular Filt Rate > 60; Glucose 132 mg/dL (65-110); Magnesium 1.8 mg/dL (1.6-2.3); Potassium 3.6 mmol/L (3.4-5.0); Sodium 132 mmol/L (137-145); Total Protein 6.9 g/dL (6.3-8.2)
[2024-12-14] MEDS: VANCOMYCIN 2,000 MG/NS 500 ML 2,000 MG/500 ML BAG 250 MG IVPB ×2 (08:26→19:48)
[2024-12-14] MEDS: ROSUVASTATIN 5 MG TABLET PO (08:26)
[2024-12-14] MEDS: SACUBITRIL/VALSARTAN 24-26 MG TABLET 1 TAB PO ×2 (08:26→20:09)
[2024-12-14] MEDS: EMPAGLIFLOZIN 10 MG TABLET PO (08:27)
[2024-12-14] MEDS: SPIRONOLACTONE 25 MG TABLET PO (08:27)
[2024-12-14] MEDS: ENOXAPARIN 40 MG/0.4 ML SYRINGE SUB-Q (08:29)
--- NOTE | 2024-12-14 10:01 | P.PNIM_ITS ---
Progress Note: A&P Assessment and Plan (1) Heel ulcer due to DM: Qualifiers: Diabetes mellitus type: type 2 Laterality: left Non-pressure ulcer stage: with necrosis of muscle Qualified Code(s): E11.621 - Type 2 diabetes mellitus with foot ulcer; L97.423 - Non-pressure chronic ulcer of left heel and midfoot with necrosis of muscle Code(s): E11.621 - Type 2 diabetes mellitus with foot ulcer; L97.409 - Non-pressure chronic ulcer of unspecified heel and midfoot with unspecified severity Status: Acute Assessment and Plan: * Pressure ulcer noted on lateral left heel * Purulence foul smelling drainage for the past several days prior to admission * Likely now has secondary sepsis given increased lethargy, hypotension and fevers * Wound care consulted - appreciate further recommendations * Orthopedics consulted * Plan further debridement when medically stable * Continue IV antibiotics * Start Dakin's solution dressing changes * Post Op 12/12: Excisional debridement including bone layer L foot 4x4cm, excisional debridement including bone R foot 2x1cm * Findings: Left foot plantar heel ulcer 4 x 4 cm with 6 cm tunneling along the plantar foot extending distally at the 1 o'clock position. Purulent material. Involving plantar calcaneus. Right foot 2 x 1 cm ulcer 4th metatarsal head with exposure of the metatarsal head. * Per orthopedics: Continue IV antibiotics, monitoring of lower extremity wounds with continued debridement tentatively scheduled for 94 * Wound culture NGTD * Given patient's underlying need for ICD implant, anesthesia/ortho will not be able to perform further debridement and would need to follow up with electrophysiology at [facility] and f/u with orthopedics after ICD has been implanted. * MR of L ft to r/u osteomyelitis, but low suspcion given negative foot XR and (-) blood/wound cultures (2) Diabetic foot infection: Code(s): E11.628 - Type 2 diabetes mellitus with other skin complications; L08.9 - Local infection of the skin and subcutaneous tissue, unspecified Status: Acute Assessment and Plan: * See above (3) Sepsis: Code(s): A41.9 - Sepsis, unspecified organism Status: Acute Assessment and Plan: * Meets SIRS criteria: Tachycardia, leukocytosis, tachypnea * lactic acid: 1.5 * suspected source: Diabetic foot wound * UA: 3-5 urine RBC, trace ketones, 3+ glucose * CXR: Opacity at the medial left mid to lower lung zone which could be related to persistent lingular atelectasis/scarring although differential includes pneumonia. * Denies any shortness of breath or cough, less likely pneumonia * Monitor daily labs * Continue cefepime, vancomycin and Flagyl * Blood cultures drawn on 12/10 - NGTD * Wound cultures drawn on 12/11 - NGTD (4) CHF (congestive heart failure): Code(s): I50.9 - Heart failure, unspecified Status: Acute Assessment and Plan: * Denies any shortness of breath or lower extremity swelling * Does not appear to be volume overloaded on exam * EKG: Sinus rhythm with occasional supraventricular premature complexes, left axis deviation, 92 rate, 351 QT * Chest XR: Opacity at the medial left mid to lower lung zone which could be related to persistent lingular atelectasis/scarring although differential includes pneumonia. * Monitor vital signs, I&Os, BUN/creatinine, daily weights, neuro status and patient is a fall risk * Monitor serum electrolytes, Keep serum Potassium>4 and serum Magnesium>2 and CBC * Continue Jardiance * Per outpatient cardiology note on 12/09/2024: * Ambulatory referral to Cardiac electrophysiology at [facility] for possible ICD for SCD prevention * Spoke with Denise Lopes of Cardiology who's office the pt went to on 12/09 who stated that this would be purely an outpatient procedure and that the patient would NOT need to be transferred from this facility (5) Type 2 diabetes mellitus with hyperglycemia: Qualifiers: Diabetes mellitus retirement insulin use: with termite treater 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 Qualified Code(s): E11.65 - Type 2 diabetes mellitus with hyperglycemia; Z79.4 - care home (current) use of insulin Code(s): E11.65 - Type 2 diabetes mellitus with hyperglycemia Status: Acute Assessment and Plan: * Hypoglycemia protocol * POC blood glucose ACHS * Home medication -continue Jardiance, Metformin on held * Correct regimen ordered - low dose TIDWM and Lantus 18 units HS * A1C 8.5 (down from 11.3 in 09/08) * Glucoses stable (6) Non-pressure chronic ulcer of other part of right foot with necrosis of muscle: Code(s): L97.513 - Non-pressure chronic ulcer of other part of right foot with necrosis of muscle Status: Acute Assessment and Plan: * Chronic right foot ulcer with deformity of the 3/4 metatarsophalangeal joints * Previous osteomyelitis * Orthopedics consulted * Would benefit from surgical excision of joints with relief of pressure and closure of ulceration * Surgical realignment of toes * Will proceed when patient is medically stable * Continue IV antibiotics * Monitor WBC, blood cultures (NGTD) (7) CAD (coronary artery disease): Qualifiers: Coronary Disease-Associated Artery/Lesion type: [place] artery [place] vs. transplanted heart: [place] heart Associated angina: with stable angina Qualified Code(s): I25.118 - Atherosclerotic heart disease of [place] coronary artery with other forms of angina pectoris Code(s): I25.10 - Atherosclerotic heart disease of [place] coronary artery without angina pectoris Status: Acute Assessment and Plan: * S/p stents and CABG * Restarted home medications (8) Fall: Code(s): W19.XXXA - Unspecified fall, initial encounter Status: Acute Assessment and Plan: * Mechanical fall at home prior to admission, denies any LOC but reports it was difficult to get up from fall * Head is atraumatic, no neurological deficits appreciated on exam * Likely secondary to underlying lower extremity chronic wounds, patient endorses difficulty with ambulation in general * Head CT: No intracranial abnormalities * PT/OT evaluations for discharge planning Subjective Date/time seen: 12/14/24 10:01 Interval history: 69 year old Male with a past medical history of T2DM, CAD s/p stents and CABG , and Ischemic cardiomyopathy who presents to the hospital for wounds on both of his feet. 12/14/2024 Patient sitting comfortably in bed at time examination. Post op Excisional debridement of L & R foot on 12/12. Pt tolerated procedure well, without complications. Given patient's underlying need for ICD implant, anesthesia/ortho will not be able to perform further debridement and would need to follow up with electrophysiology at [facility] and f/u with orthopedics after ICD has been implanted. Cardio was consulted here who stated that this would not be an emergent issue that would require transfer and that the pt should f/u with EP at [facility]. Obtaining MR of L ft to r/u osteomyelitis but cultures (blood and wound) are negative. If MR is negative for osteo, will d/c on antibiotics with close f/u with Ortho and EP @ [facility]. Review of Systems Review of Systems: All systems reviewed & are unremarkable except as noted in HPI and below Exam Narrative: Gen - well appearing male in no acute respiratory distress who is nontoxic- appearing lying semi recumbent in bed HEENT - normocephalic. Atraumatic. Pupils equal round and reactive. Extraocular motions intact. Sclera clear and anicteric. Moist mucous membranes. Neck - neck was supple. No dominant adenopathy, thyromegaly or masses. Chest - lungs are clear to auscultation bilaterally. No wheezes or crackles. CV - heart was regular rate and rhythm. S1-S2. No murmurs gallops or rubs. Abd - abdomen was soft. Nontender. Nondistended. Positive bowel sounds. Ext - no clubbing, cyanosis or edema. 2+ DP pulses bilaterally. Neuro - patient is alert and oriented x4. Strength is 5/5 in both upper and lower extremities. Cranial nerves 2-12 are intact. Speech is clear. Psych - normal mood and affect. Patient is pleasant and cooperative. Skin - R 1st toe - ulcer at base, erythema and tenderness. L foot - heel wound, deep Objective Data Vital Signs Vital Signs: Vital Signs - 24 hr 12/13/24 12:00 12/13/24 14:00 12/13/24 16:00 Temperature 98.1 F Pulse Rate 77 72 71 Respiratory Rate 18 Blood Pressure 133/72 Pulse Oximetry 100 Oxygen Delivery 12/13/24 20:00 12/13/24 20:00 12/13/24 20:23 Temperature 98.2 F Pulse Rate 82 80 Respiratory Rate 18 Blood Pressure 145/79 H Pulse Oximetry 100 Oxygen Delivery Room Air 12/13/24 21:11 12/14/24 00:00 12/14/24 04:00 Temperature Pulse Rate 75 73 73 Respiratory Rate Blood Pressure Pulse Oximetry Oxygen Delivery 12/14/24 05:47 12/14/24 08:00 12/14/24 08:27 Temperature Pulse Rate 73 85 Respiratory Rate 18 Blood Pressure 135/68 Pulse Oximetry 99 Oxygen Delivery Room Air Intake/Output Intake/Output: Intake & Output 12/11/24 12/12/24 12/13/24 12/14/24 23:59 23:59 23:59 23:59 Intake Total 2270 1880 3970 240 Output Total 1100 700 Balance 2270 780 3970 -460 Meds/Results Medications: Active Medications Generic Name Dose Route Start Last Admin Trade Name Freq PRN Reason Stop Dose Admin Acetaminophen 1,000 mg 12/11/24 01:36 12/14/24 05:13 Acetaminophen 500 Mg Tablet PO 1,000 mg Q6H PRN Administration Pain or Fever Carvedilol 12.5 mg 12/11/24 09:00 12/14/24 08:27 Carvedilol 12.5 Mg Tablet PO 12.5 mg Q12HR RANDA Administration Dextrose 12.5 gm 12/11/24 01:38 12/12/24 08:08 Dextrose 50% 25 Gm/50 Ml Syringe IV PUSH 12.5 gm PRN PRN Administration Hypoglycemia Protocol Empagliflozin 10 mg 12/11/24 09:00 12/14/24 08:27 Empagliflozin 10 Mg Tablet PO 10 mg DAILY RANDA Administration Enoxaparin Sodium 40 mg 12/11/24 09:00 12/14/24 08:29 Enoxaparin 40 Mg/0.4 Ml Syringe SUB-Q 40 mg DAILY RANDA Administration Glucagon 1 mg 12/11/24 01:38 Glucagon For Inj 1 Mg Vial IM PRN PRN Hypoglycemia Protocol Glucose 15 gm 12/11/24 01:38 Glucose Oral Gel 15 Gm Of Glucse In 37.5 Gm Tube PO PRN PRN Hypoglycemia Protocol Cefepime HCl 2 gm/ Sodium 50 mls @ 100 mls/hr 12/11/24 06:00 12/14/24 05:14 Chloride IVPB 100 mls/hr Q12H RANDA Administration Dextrose 1,000 mls @ 100 mls/hr 12/11/24 01:38 Dextrose 5% 1,000 Ml IVPB PRN PRN Hypoglycemia Protocol Vancomycin HCl 2,000 mg in 500 mls @ 250 mls/hr 12/12/24 20:00 12/14/24 08:26 Vancomycin 2,000 Mg/Ns 500 Ml IVPB 250 mls/hr Q12H RANDA Administration Insulin Aspart 3 - 6 units 12/11/24 08:00 12/14/24 08:30 Insulin Aspart (*Bkc) 100 Units/Ml SUB-Q Not Given TIDWM RANDA Protocol Insulin Glargine 18 units 12/11/24 21:00 12/13/24 21:09 Insulin Glargine (*Bkc) 100 Units/Ml SUB-Q 18 units QHS RANDA Administration Meclizine HCl 50 mg 12/11/24 01:46 Meclizine Hcl 25 Mg Tablet PO BID PRN nausea/dizziness/anxiety Metronidazole 500 mg 12/13/24 14:00 12/14/24 05:14 Metronidazole 500 Mg Tablet PO 500 mg Q8HR RANDA Administration Rosuvastatin Calcium 5 mg 12/11/24 09:00 12/14/24 08:26 Rosuvastatin 5 Mg Tablet PO 5 mg DAILY RANDA Administration Sacubitril/Valsartan 1 tab 12/11/24 09:00 12/14/24 08:26 Sacubitril/Valsartan 24-26 Mg Tablet PO 1 tab Q12HR RANDA Administration Sodium Hypochlorite 1 applic 12/11/24 09:00 12/13/24 19:53 Sod Hypochlorite 1/4 Strength 473 Ml TOPICAL Not Given Q12HR RANDA Spironolactone 25 mg 12/11/24 09:00 12/14/24 08:27 Spironolactone 25 Mg Tablet PO 25 mg QAM RANDA Administration Radiology Results: ITS Impressions Foot X-Ray 12/10/24 18:28 IMPRESSION: 1. Deep erosion plantar to the left calcaneus with lucent gas extending to the level of the posterior tuberosity of the calcaneus but without evident osteolysis to suggest osteomyelitis. 2. Juxta articular erosions with overhanging edges at the medial aspect of the heads of the bilateral first proximal phalanges and at the order side of the right third and fourth metatarsal heads with appearance suspicious for gout. 3. Significant dorsal subluxation, potentially dislocation at the third and fourth metatarsophalangeal joints with suggestion of severe osteoarthritis with remodeling of the base of the fourth proximal phalanx. 4. Additional mild to moderate polyarticular osteoarthritis at the bilateral fee t. Foot X-Ray 12/10/24 18:28 IMPRESSION: 1. Deep erosion plantar to the left calcaneus with lucent gas extending to the level of the posterior tuberosity of the calcaneus but without evident osteolysis to suggest osteomyelitis. 2. Juxta articular erosions with overhanging edges at the medial aspect of the heads of the bilateral first proximal phalanges and at the order side of the right third and fourth metatarsal heads with appearance suspicious for gout. 3. Significant dorsal subluxation, potentially dislocation at the third and fourth metatarsophalangeal joints with suggestion of severe osteoarthritis with remodeling of the base of the fourth proximal phalanx. 4. 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 Chest X-Ray 12/10/24 20:05 IMPRESSION: 1. Opacity at the medial left mid to lower lung zone which could be related to persistent lingular atelectasis/scarring although differential includes pneumonia. Head CT 12/11/24 13:27 IMPRESSION: 1. No acute intracranial abnormality. Labs Labs: Laboratory Results - last 24 hr 12/13/24 12/13/24 12/13/24 11:39 16:34 17:11 WBC RBC Hgb Hct MCV MCH MCHC RDW Plt Count MPV Immature Gran % (Auto) Neut % (Auto) Lymph % (Auto) Iron % (Auto) Eos % (Auto) Baso % (Auto) Lymph # (Auto) Iron # (Auto) Eos # (Auto) Baso # (Auto) Abs Immat Gran (auto) Absolute Neuts (auto) Absolute Nucleated RBC Nucleated RBC % ESR > 140 H Sodium Potassium Chloride Carbon Dioxide Anion Gap BUN Creatinine Estim Creat Clear Calc Estimated GFR Glucose POC Capillary Glucose 118 H 123 H Calcium Magnesium Total Bilirubin AST ALT Alkaline Phosphatase C-Reactive Protein Total Protein Albumin Procalcitonin Vancomycin Trough 12/13/24 12/14/24 12/14/24 20:31 06:43 07:33 WBC 11.3 H RBC 3.90 L Hgb 11.2 L Hct 35.1 L MCV 90.0 MCH 28.7 MCHC 31.9 L RDW 12.2 Plt Count 317 MPV 8.8 Immature Gran % (Auto) 0.9 H Neut % (Auto) 81.0 H Lymph % (Auto) 8.6 L Iron % (Auto) 6.6 Eos % (Auto) 2.6 Baso % (Auto) 0.3 Lymph # (Auto) 0.98 Iron # (Auto) 0.8 H Eos # (Auto) 0.3 Baso # (Auto) 0.0 Abs Immat Gran (auto) 0.10 H Absolute Neuts (auto) 9.2 H Absolute Nucleated RBC 0.000 Nucleated RBC % 0.0 ESR Sodium 132 L Potassium 3.6 Chloride 97 L Carbon Dioxide 27 Anion Gap 8 BUN 15 Creatinine 0.59 L Estim Creat Clear Calc 109 Estimated GFR > 60 Glucose 132 H POC Capillary Glucose 226 H 138 H Calcium 8.6 Magnesium 1.8 Total Bilirubin 0.5 AST 25 ALT 16 Alkaline Phosphatase 88 C-Reactive Protein > 9.0 H Total Protein 6.9 Albumin 3.1 L Procalcitonin 0.6 Vancomycin Trough 19.1 Quality VTE Prophylaxis VTE prophylaxis: mechanical ordered and pharmacologic ordered
--- NOTE | 2024-12-14 10:38 | P.PNOP_ITS ---
Progress Note: A&P Assessment and Plan (1) Type 2 diabetes mellitus with diabetic neuropathy: Qualifiers: Diabetes mellitus jail insulin use: with jail use Qualified Code(s): E11.40 - Type 2 diabetes mellitus with diabetic neuropathy, unspecified; Z79.4 - long-term (current) use of insulin Code(s): E11.40 - Type 2 diabetes mellitus with diabetic neuropathy, unspecified Status: Acute (2) Diabetic foot infection: Code(s): E11.628 - Type 2 diabetes mellitus with other skin complications; L08.9 - Local infection of the skin and subcutaneous tissue, unspecified Status: Acute Assessment and Plan: Postoperative day 2 bilateral foot debridement. awaiting culture results for antibiotic regimen. MRI not indicated: bone debrided in surgery which will obscure results. Bone involved with infection noted at time of surgery which is osteomyelitis. Subjective Subjective Date/Time Seen: 12/14/24 Post Op day: 2 Principal diagnosis: Bilateral diabetic foot ulcers Objective Data Vital Signs Vital Signs: Vital Signs - 24 hr 12/13/24 12:00 12/13/24 14:00 12/13/24 16:00 Temperature 98.1 F Pulse Rate 77 72 71 Respiratory Rate 18 Blood Pressure 133/72 Pulse Oximetry 100 Oxygen Delivery 12/13/24 20:00 12/13/24 20:00 12/13/24 20:23 Temperature 98.2 F Pulse Rate 82 80 Respiratory Rate 18 Blood Pressure 145/79 H Pulse Oximetry 100 Oxygen Delivery Room Air 12/13/24 21:11 12/14/24 00:00 12/14/24 04:00 Temperature Pulse Rate 75 73 73 Respiratory Rate Blood Pressure Pulse Oximetry Oxygen Delivery 12/14/24 05:47 12/14/24 08:00 12/14/24 08:00 Temperature Pulse Rate 73 77 Respiratory Rate 18 Blood Pressure 135/68 Pulse Oximetry 99 Oxygen Delivery Room Air 12/14/24 08:27 Temperature Pulse Rate 85 Respiratory Rate Blood Pressure Pulse Oximetry Oxygen Delivery Intake/Output Intake/Output: Intake & Output 12/11/24 12/12/24 12/13/24 12/14/24 23:59 23:59 23:59 23:59 Intake Total 2270 1880 3970 240 Output Total 1100 700 Balance 2270 780 3970 -460 Meds/Results Medications: Active Medications Generic Name Dose Route Start Last Admin Trade Name Freq PRN Reason Stop Dose Admin Acetaminophen 1,000 mg 12/11/24 01:36 12/14/24 05:13 Acetaminophen 500 Mg Tablet PO 1,000 mg Q6H PRN Administration Pain or Fever Carvedilol 12.5 mg 12/11/24 09:00 12/14/24 08:27 Carvedilol 12.5 Mg Tablet PO 12.5 mg Q12HR RANDA Administration Dextrose 12.5 gm 12/11/24 01:38 12/12/24 08:08 Dextrose 50% 25 Gm/50 Ml Syringe IV PUSH 12.5 gm PRN PRN Administration Hypoglycemia Protocol Empagliflozin 10 mg 12/11/24 09:00 12/14/24 08:27 Empagliflozin 10 Mg Tablet PO 10 mg DAILY RANDA Administration Enoxaparin Sodium 40 mg 12/11/24 09:00 12/14/24 08:29 Enoxaparin 40 Mg/0.4 Ml Syringe SUB-Q 40 mg DAILY RANDA Administration Glucagon 1 mg 12/11/24 01:38 Glucagon For Inj 1 Mg Vial IM PRN PRN Hypoglycemia Protocol Glucose 15 gm 12/11/24 01:38 Glucose Oral Gel 15 Gm Of Glucse In 37.5 Gm Tube PO PRN PRN Hypoglycemia Protocol Cefepime HCl 2 gm/ Sodium 50 mls @ 100 mls/hr 12/11/24 06:00 12/14/24 05:14 Chloride IVPB 100 mls/hr Q12H RANDA Administration Dextrose 1,000 mls @ 100 mls/hr 12/11/24 01:38 Dextrose 5% 1,000 Ml IVPB PRN PRN Hypoglycemia Protocol Vancomycin HCl 2,000 mg in 500 mls @ 250 mls/hr 12/12/24 20:00 12/14/24 08:26 Vancomycin 2,000 Mg/Ns 500 Ml IVPB 250 mls/hr Q12H RANDA Administration Insulin Aspart 3 - 6 units 12/11/24 08:00 12/14/24 08:30 Insulin Aspart (*Bkc) 100 Units/Ml SUB-Q Not Given TIDWM RANDA Protocol Insulin Glargine 18 units 12/11/24 21:00 12/13/24 21:09 Insulin Glargine (*Bkc) 100 Units/Ml SUB-Q 18 units QHS RANDA Administration Meclizine HCl 50 mg 12/11/24 01:46 Meclizine Hcl 25 Mg Tablet PO BID PRN nausea/dizziness/anxiety Metronidazole 500 mg 12/13/24 14:00 12/14/24 05:14 Metronidazole 500 Mg Tablet PO 500 mg Q8HR RANDA Administration Rosuvastatin Calcium 5 mg 12/11/24 09:00 12/14/24 08:26 Rosuvastatin 5 Mg Tablet PO 5 mg DAILY RANDA Administration Sacubitril/Valsartan 1 tab 12/11/24 09:00 12/14/24 08:26 Sacubitril/Valsartan 24-26 Mg Tablet PO 1 tab Q12HR RANDA Administration Sodium Hypochlorite 1 applic 12/11/24 09:00 12/13/24 19:53 Sod Hypochlorite 1/4 Strength 473 Ml TOPICAL Not Given Q12HR RANDA Spironolactone 25 mg 12/11/24 09:00 12/14/24 08:27 Spironolactone 25 Mg Tablet PO 25 mg QAM RANDA Administration Radiology Results: ITS Impressions Foot X-Ray 12/10/24 18:28 IMPRESSION: 1. Deep erosion plantar to the left calcaneus with lucent gas extending to the level of the posterior tuberosity of the calcaneus but without evident osteolysis to suggest osteomyelitis. 2. Juxta articular erosions with overhanging edges at the medial aspect of the heads of the bilateral first proximal phalanges and at the order side of the right third and fourth metatarsal heads with appearance suspicious for gout. 3. Significant dorsal subluxation, potentially dislocation at the third and fourth metatarsophalangeal joints with suggestion of severe osteoarthritis with remodeling of the base of the fourth proximal phalanx. 4. 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 Foot X-Ray 12/10/24 18:28 IMPRESSION: 1. Deep erosion plantar to the left calcaneus with lucent gas extending to the level of the posterior tuberosity of the calcaneus but without evident osteolysis to suggest osteomyelitis. 2. Juxta articular erosions with overhanging edges at the medial aspect of the heads of the bilateral first proximal phalanges and at the order side of the right third and fourth metatarsal heads with appearance suspicious for gout. 3. Significant dorsal subluxation, potentially dislocation at the third and fourth metatarsophalangeal joints with suggestion of severe osteoarthritis with remodeling of the base of the fourth proximal phalanx. 4. 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 Chest X-Ray 12/10/24 20:05 IMPRESSION: 1. Opacity at the medial left mid to lower lung zone which could be related to persistent lingular atelectasis/scarring although differential includes pneumonia. Head CT 12/11/24 13:27 IMPRESSION: 1. No acute intracranial abnormality. Labs Labs: Laboratory Results - last 24 hr 12/13/24 12/13/24 12/13/24 11:39 16:34 17:11 WBC RBC Hgb Hct MCV MCH MCHC RDW Plt Count MPV Immature Gran % (Auto) Neut % (Auto) Lymph % (Auto) [place] % (Auto) Eos % (Auto) Baso % (Auto) Lymph # (Auto) [place] # (Auto) Eos # (Auto) Baso # (Auto) Abs Immat Gran (auto) Absolute Neuts (auto) Absolute Nucleated RBC Nucleated RBC % ESR > 140 H Sodium Potassium Chloride Carbon Dioxide Anion Gap BUN Creatinine Estim Creat Clear Calc Estimated GFR Glucose POC Capillary Glucose 118 H 123 H Calcium Magnesium Total Bilirubin AST ALT Alkaline Phosphatase C-Reactive Protein Total Protein Albumin Procalcitonin Vancomycin Trough 12/13/24 12/14/24 12/14/24 20:31 06:43 07:33 WBC 11.3 H RBC 3.90 L Hgb 11.2 L Hct 35.1 L MCV 90.0 MCH 28.7 MCHC 31.9 L RDW 12.2 Plt Count 317 MPV 8.8 Immature Gran % (Auto) 0.9 H Neut % (Auto) 81.0 H Lymph % (Auto) 8.6 L [place] % (Auto) 6.6 Eos % (Auto) 2.6 Baso % (Auto) 0.3 Lymph # (Auto) 0.98 [place] # (Auto) 0.8 H Eos # (Auto) 0.3 Baso # (Auto) 0.0 Abs Immat Gran (auto) 0.10 H Absolute Neuts (auto) 9.2 H Absolute Nucleated RBC 0.000 Nucleated RBC % 0.0 ESR Sodium 132 L Potassium 3.6 Chloride 97 L Carbon Dioxide 27 Anion Gap 8 BUN 15 Creatinine 0.59 L Estim Creat Clear Calc 109 Estimated GFR > 60 Glucose 132 H POC Capillary Glucose 226 H 138 H Calcium 8.6 Magnesium 1.8 Total Bilirubin 0.5 AST 25 ALT 16 Alkaline Phosphatase 88 C-Reactive Protein > 9.0 H Total Protein 6.9 Albumin 3.1 L Procalcitonin 0.6 Vancomycin Trough 19.1
[2024-12-14 10:52] LABS: CRP 15.2 mg/dL (<1.0)
[2024-12-14] MEDS: SOD HYPOCHLORITE 1/4 STRENGTH 473 ML 1 APPLIC TOPICAL (15:20)
[2024-12-14] MEDS: INSULIN GLARGINE (*BKC) 100 UNITS/ML 18 UNITS SUB-Q (20:09)
[2024-12-15] VITALS: PULSE 68
[2024-12-15 04:00] VITALS: PULSE 75
[2024-12-15] MEDS: ACETAMINOPHEN 500 MG TABLET 1000 MG PO (04:05)
[2024-12-15] MEDS: SOD HYPOCHLORITE 1/4 STRENGTH 473 ML 1 APPLIC TOPICAL (05:05)
[2024-12-15] MEDS: CEFEPIME 2 GM in SODIUM CHLORIDE 0.9% IV 50 ML 100 ML IVPB (05:06)
[2024-12-15 05:44] LABS: Hematocrit 29.4 % (42.0-52.0); Hemoglobin 9.5 g/dL (14.0-18.0); Immature Granulocyte Percent A 0.7 % (0-0.5); Lymphocytes Absolute Auto 1.19 K/mm3 (0.9-3.2); Mean Corpuscular HGB Conc 32.3 g/dl (32-36); Mean Corpuscular Hemoglobin 29.1 pg (26-34); Mean Corpuscular Volume 89.9 fl (80-100); Nucleated Red Blood Cells Absolute Auto 0.000 K/mm3 (0.0-0.012); Nucleated Red Blood Cells Perc 0.0 % (0.0-0.2); Platelet Count Result 299 k/mm3 (150-375); Red Blood Count 3.27 M/mm3 (4.6-6.20); White Blood Count 9.9 K/mm3 (4.5-10.0)
[2024-12-15 06:00] VITALS: BP 123/55; PULSE 73; RESP 20; TEMP 36.8; O2SAT 98
[2024-12-15 06:11] LABS: Alanine Aminotransferase 9 U/L (6-50); Albumin Level 2.6 g/dL (3.5-5.1); Alkaline Phosphatase 76 U/L (38-126); Anion Gap 3 mmol/L (4-12); Aspartate Amino Transferase 22 U/L (17-59); Bilirubin,Total 0.3 mg/dL (0.2-1.3); Blood Urea Nitrogen 12 mg/dL (9-20); Calcium 8.2 mg/dL (8.4-10.2); Carbon Dioxide 31 mmol/L (22-30); Chloride 97 mmol/L (98-107); Estimated CRCL calculation 124 ml/min; Estimated Glomerular Filt Rate > 60; Glucose 111 mg/dL (65-110); Magnesium 1.6 mg/dL (1.6-2.3); Potassium 3.3 mmol/L (3.4-5.0); Sodium 131 mmol/L (137-145); Total Protein 5.8 g/dL (6.3-8.2)
[2024-12-15 08:00] VITALS: PULSE 74
[2024-12-15] MEDS: VANCOMYCIN 2,000 MG/NS 500 ML 2,000 MG/500 ML BAG 250 MG IVPB (08:49)
[2024-12-15 08:50] VITALS: PULSE 82
[2024-12-15] MEDS: SPIRONOLACTONE 25 MG TABLET PO (08:50)
[2024-12-15] MEDS: EMPAGLIFLOZIN 10 MG TABLET PO (08:50)
[2024-12-15] MEDS: ROSUVASTATIN 5 MG TABLET PO (08:50)
[2024-12-15] MEDS: SACUBITRIL/VALSARTAN 24-26 MG TABLET 1 TAB PO (08:50)
[2024-12-15] MEDS: ENOXAPARIN 40 MG/0.4 ML SYRINGE SUB-Q (08:51)
--- NOTE | 2024-12-15 10:23 | P.DS_ITS ---
DS: Admitting Diagnosis Discharge Date 12/15/2024 Admitting Diagnosis Hell ulcer, diabetic foot infection DS: Discharge Diagnosis Discharge Diagnosis (1) Heel ulcer due to DM: Qualifiers: Diabetes mellitus type: type 2 Laterality: left Non-pressure ulcer stage: with necrosis of muscle Qualified Code(s): E11.621 - Type 2 diabetes mellitus with foot ulcer; L97.423 - Non-pressure chronic ulcer of left heel and midfoot with necrosis of muscle Code(s): E11.621 - Type 2 diabetes mellitus with foot ulcer; L97.409 - Non-pressure chronic ulcer of unspecified heel and midfoot with unspecified severity Status: Acute Assessment and Plan: * Pressure ulcer noted on lateral left heel * Purulence foul smelling drainage for the past several days prior to admission * Likely now has secondary sepsis given increased lethargy, hypotension and fevers * Wound care consulted - appreciate further recommendations * Orthopedics consulted * Plan further debridement when medically stable * Continue IV antibiotics * Start Dakin's solution dressing changes * Post Op 12/12: Excisional debridement including bone layer L foot 4x4cm, excisional debridement including bone R foot 2x1cm * Findings: Left foot plantar heel ulcer 4 x 4 cm with 6 cm tunneling along the plantar foot extending distally at the 1 o'clock position. Purulent material. Involving plantar calcaneus. Right foot 2 x 1 cm ulcer 4th metatarsal head with exposure of the metatarsal head. * Per orthopedics: Continue IV antibiotics, monitoring of lower extremity wounds with continued debridement tentatively scheduled for 94 * Wound culture NGTD * Given patient's underlying need for ICD implant, anesthesia/ortho will not be able to perform further debridement and would need to follow up with electrophysiology at [facility] and f/u with orthopedics after ICD has been implanted. * MR of L ft to r/u osteomyelitis, but low suspcion given negative foot XR and (-) blood/wound cultures (2) Diabetic foot infection: Code(s): E11.628 - Type 2 diabetes mellitus with other skin complications; L08.9 - Local infection of the skin and subcutaneous tissue, unspecified Status: Acute Assessment and Plan: * See above (3) Sepsis: Code(s): A41.9 - Sepsis, unspecified organism Status: Acute Assessment and Plan: * Meets SIRS criteria: Tachycardia, leukocytosis, tachypnea * lactic acid: 1.5 * suspected source: Diabetic foot wound * UA: 3-5 urine RBC, trace ketones, 3+ glucose * CXR: Opacity at the medial left mid to lower lung zone which could be related to persistent lingular atelectasis/scarring although differential includes pneumonia. * Denies any shortness of breath or cough, less likely pneumonia * Monitor daily labs * Continue cefepime, vancomycin and Flagyl * Blood cultures drawn on 12/10 - NGTD * Wound cultures drawn on 12/11 - NGTD (4) CHF (congestive heart failure): Code(s): I50.9 - Heart failure, unspecified Status: Acute Assessment and Plan: * Denies any shortness of breath or lower extremity swelling * Does not appear to be volume overloaded on exam * EKG: Sinus rhythm with occasional supraventricular premature complexes, left axis deviation, 92 rate, 351 QT * Chest XR: Opacity at the medial left mid to lower lung zone which could be related to persistent lingular atelectasis/scarring although differential includes pneumonia. * Monitor vital signs, I&Os, BUN/creatinine, daily weights, neuro status and patient is a fall risk * Monitor serum electrolytes, Keep serum Potassium>4 and serum Magnesium>2 and CBC * Continue Jardiance * Per outpatient cardiology note on 12/09/2024: * Ambulatory referral to Cardiac electrophysiology at [facility] for possible ICD fo r SCD prevention * Spoke with Kati Lopes of Cardiology who's office the pt went to on 12/09 who stated that this would be purely an outpatient procedure and that the patient would NOT need to be transferred from this facility (5) Type 2 diabetes mellitus with hyperglycemia: Qualifiers: Diabetes mellitus half-way insulin use: with half-way use Qualified Code(s): E11.65 - Type 2 diabetes mellitus with hyperglycemia; 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 Code(s): E11.65 - Type 2 diabetes mellitus with hyperglycemia Status: Acute Assessment and Plan: * Hypoglycemia protocol * POC blood glucose ACHS * Home medication -continue Jardiance, Metformin on held * Correct regimen ordered - low dose TIDWM and Lantus 18 units HS * A1C 8.5 (down from 11.3 in 09/08) * Glucoses stable (6) Non-pressure chronic ulcer of other part of right foot with necrosis of muscle: Code(s): L97.513 - Non-pressure chronic ulcer of other part of right foot with necrosis of muscle Status: Acute Assessment and Plan: * Chronic right foot ulcer with deformity of the 3/4 metatarsophalangeal joints * Previous osteomyelitis * Orthopedics consulted * Would benefit from surgical excision of joints with relief of pressure and closure of ulceration * Surgical realignment of toes * Will proceed when patient is medically stable * Continue IV antibiotics * Monitor WBC, blood cultures (NGTD) (7) CAD (coronary artery disease): Qualifiers: Associated angina: with stable angina Coronary Disease-Associated Artery/Lesion type: [place] artery [place] vs. transplanted heart: [place] heart Qualified Code(s): I25.118 - Atherosclerotic heart disease of [place] coronary artery with other forms of angina pectoris Code(s): I25.10 - Atherosclerotic heart disease of [place] coronary artery without angina pectoris Status: Acute Assessment and Plan: * S/p stents and CABG * Restarted home medications (8) Fall: Code(s): W19.XXXA - Unspecified fall, initial encounter Status: Acute Assessment and Plan: * Mechanical fall at home prior to admission, denies any LOC but reports it was difficult to get up from fall * Head is atraumatic, no neurological deficits appreciated on exam * Likely secondary to underlying lower extremity chronic wounds, patient endorses difficulty with ambulation in general * Head CT: No intracranial abnormalities * PT/OT evaluations for discharge planning DS: Summary Hospital Course Reason for hospitalization: Extremity Problem Hospital Course: Ramirez Orantes is a 69 year old Male with a past medical history of T2DM, CAD s/p stents and CABG , and Ischemic cardiomyopathy who presents to the hospital for wounds on both of his feet. Patient states that he has a heel wound on his left heel that has been present for 2 years. Also endorses a wound the underside of his right 1st toe that has also been present for several months for. Patient was recently seen in September of 2024 for lower extremity wound/swelling. Patient has been seeing a a home health nurse at his own house for periodic dressing changes. Over this past weekend the patient developed purulent foul-smelling drainage from the inferior aspect the left heel, as well as subjective fevers and increased lethargy. He does have history of previous right hip foot osteomyelitis s/p excision with resultant toe deformity. Patient denies any recent travel or known sick contacts. Orthopedics has been consulted regarding possible diabetic foot infection with subsequent surgical evaluation and IV antibiotics. ED Workup: 98.4F, 90 HR, 99% on RA, 163/66, 16 RR WBC 18.5, Hgb 11.5, Hct 35.1, Plt 290, PT 15.8, INR 1.2, Na 132, K 5.0, CO 27, BUN 24, Cr 1.09, , Glucose 144, Lactic Acid 1.5, LFTs wnl, CRP 21.1 XR Foot LT/RT: 1. Deep erosion plantar to the left calcaneus with lucent gas extending to the level of the posterior tuberosity of the calcaneus but without evident osteolysis to suggest osteomyelitis. 2. Juxta articular erosions with overhanging edges at the medial aspect of the heads of the bilateral first proximal phalanges and at the order side of the right third and fourth metatarsal heads with appearance suspicious for gout. 3. Significant dorsal subluxation, potentially dislocation at the third and fourth metatarsophalangeal joints with suggestion of severe osteoarthritis with remodeling of the base of the fourth proximal phalanx. 4. 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 Chest XR: Opacity at the medial left mid to lower lung zone which could be related to persistent lingular atelectasis/scarring although differential includes pneumonia. Head CT: No acute intracranial abnormality. EKG: Sinus rhythm with occasional supraventricular premature complexes, left axis deviation, 92 rate, 351 QT Hospital Course: Orthopedics was consulted and was able to see the patient on 12/11. they were consulted for an infected pressure ulcer/diabetic foot infection/ heel ulcer due to diabetes mellitus. Patient had been dealing with a chronic ulcer the right foot with a deformity of the 3rd and 4th metatarsophalangeal joints. Orthopedics discussed non operative/ operative treatment measures with the patient. Given all the information, patient agreed for left foot excisional debridement. This was performed on 12/12. for operative notes: Left foot plantar heel ulcer 4 x 4 cm with 6 cm tunneling along the plantar foot extending distally at the 1 o'clock position. Purulent material. Involving plantar calcaneus. Right foot 2 x 1 cm ulcer 4th metatarsal head with exposure of the metatarsal head. Patient tolerated the procedure well and continued admission in the hospital after this procedure. Throughout hospitalization, wound continued to heal appropriately with less swelling/ erythema and some foul odor but much improved when compared to admission. Orthopedics recommended more surgical treatment however given poor cardiac function, I discussed with Kati Lopes of cardiology whose office saw the patient on Monday of this week. They recommended that he follow-up with [facility] in the outpatient setting for an implant of an ICD. Cardiology did not recommend emergent transfer would be required at this time. I discussed these findings with Orthopedics in the patient. Patient would prefer to follow-up with [facility] in the outpatient setting to have this device implanted, and will follow-up with orthopedics in the outpatient setting for further debridement of his heel wound. Patient was kept in the hospital until wound culture came back showing pasteurella multocida. blood cultures negative for growth so far. Patient remains afebrile throughout hospitalization and 2 leukocytosis has resolved at this point. Patient is otherwise hemodynamically stable and can be discharged at this time. He will be given further 2 weeks of antibiotic coverage to cover pasteurella wound infection and will be advised to follow-up with [facility] electrophysiology for possible ICD implant and with Orthop edics after this procedure for further debridement of his heel ulcer. Patient is amenable to this plan. Plan for discharge to home with home health at this time. Status at Discharge Functional status at discharge: independent ambulation Overall status at discharge: patient is progressing back to baseline Time Spent with Patient Time attestation: Total time spent providing and/or coordinating discharge services: 45 Exam Narrative: Gen - well appearing male in no acute respiratory distress who is nontoxic- appearing lying semi recumbent in bed HEENT - normocephalic. Atraumatic. Pupils equal round and reactive. Extraocular motions intact. Sclera clear and anicteric. Moist mucous membranes. Neck - neck was supple. No dominant adenopathy, thyromegaly or masses. Chest - lungs are clear to auscultation bilaterally. No wheezes or crackles. CV - heart was regular rate and rhythm. S1-S2. No murmurs gallops or rubs. Abd - abdomen was soft. Nontender. Nondistended. Positive bowel sounds. Ext - no clubbing, cyanosis or edema. 2+ DP pulses bilaterally. Neuro - patient is alert and oriented x4. Strength is 5/5 in both upper and lower extremities. Cranial nerves 2-12 are intact. Speech is clear. Psych - normal mood and affect. Patient is pleasant and cooperative. Skin - R 1st toe - ulcer at base, erythema and tenderness. L foot - heel wound, deep DS: Data Data Completed and Pending Labs on day of discharge: Labs from last 24 hours 12/15/24 12/15/24 12/14/24 07:37 05:13 20:20 WBC 9.9 RBC 3.27 L Hgb 9.5 L Hct 29.4 L MCV 89.9 MCH 29.1 MCHC 32.3 RDW 12.0 Plt Count 299 MPV 8.9 Immature Gran % (Auto) 0.7 H Neut % (Auto) 73.2 H Lymph % (Auto) 12.1 L Menard % (Auto) 9.2 H Eos % (Auto) 4.5 H Baso % (Auto) 0.3 Lymph # (Auto) 1.19 Menard # (Auto) 0.9 H Eos # (Auto) 0.4 H Baso # (Auto) 0.0 Abs Immat Gran (auto) 0.07 H Absolute Neuts (auto) 7.2 H Absolute Nucleated RBC 0.000 Nucleated RBC % 0.0 ESR Sodium 131 L Potassium 3.3 L Chloride 97 L Carbon Dioxide 31 H Anion Gap 3 L BUN 12 Creatinine 0.51 L Estim Creat Clear Calc 124 Estimated GFR > 60 Glucose 111 H POC Capillary Glucose 99 180 H Calcium 8.2 L Magnesium 1.6 Total Bilirubin 0.3 AST 22 ALT 9 Alkaline Phosphatase 76 C-Reactive Protein Total Protein 5.8 L Albumin 2.6 L 12/14/24 12/14/24 12/14/24 17:13 16:39 11:17 WBC RBC Hgb Hct MCV MCH MCHC RDW Plt Count MPV Immature Gran % (Auto) Neut % (Auto) Lymph % (Auto) Menard % (Auto) Eos % (Auto) Baso % (Auto) Lymph # (Auto) Menard # (Auto) Eos # (Auto) Baso # (Auto) Abs Immat Gran (auto) Absolute Neuts (auto) Absolute Nucleated RBC Nucleated RBC % ESR 136 H Sodium Potassium Chloride Carbon Dioxide Anion Gap BUN Creatinine Estim Creat Clear Calc Estimated GFR Glucose POC Capillary Glucose 142 H 155 H Calcium Magnesium Total Bilirubin AST ALT Alkaline Phosphatase C-Reactive Protein Total Protein Albumin 12/14/24 06:43 WBC RBC Hgb Hct MCV MCH MCHC RDW Plt Count MPV Immature Gran % (Auto) Neut % (Auto) Lymph % (Auto) Menard % (Auto) Eos % (Auto) Baso % (Auto) Lymph # (Auto) Menard # (Auto) Eos # (Auto) Baso # (Auto) Abs Immat Gran (auto) Absolute Neuts (auto) Absolute Nucleated RBC Nucleated RBC % ESR Sodium Potassium Chloride Carbon Dioxide Anion Gap BUN Creatinine Estim Creat Clear Calc Estimated GFR Glucose POC Capillary Glucose Calcium Magnesium Total Bilirubin AST ALT Alkaline Phosphatase C-Reactive Protein 15.2 H Total Protein Albumin Preliminary micro results at discharge 12/10/24 19:00 Blood Culture - Preliminary Blood 12/10/24 18:17 Blood Culture - Preliminary Blood Discharge Plan Discharge Attending physician on discharge: Mil Escobar Consulting providers: Chuy Douglas; Lori Little; Kati Lopes Discharging Clinician: Chuy Douglas Anticipated Discharge Date/Time: 12/15/24 10:22 Patient Disposition: Home with Home Health Service Activity: august shower Diet: heart healthy Wound Care Instructions: remove dressing to shower, change dressing daily and other - see discharge instructions Discharge Instructions: Per Care Coordination: [facility] ([phone]) to resume care & will call to schedule initial visit LORI LITTLE M.D. [facility] [address] [place] [address] POST OPERATIVE DISCHARGE INSTRUCTIONS FOOT/ANKLE SURGERY * Gauze dressing change to left foot with Dakin soln soaked gauze packed in wound. Change packing twice daily. Silver gel to right foot with gauze cover daily. * Use postoperative shoe when up. * If the pain medication does not provide adequate relief, please call Dr?s office. * Take other medication as prescribed. * Please call ?s office to confirm follow-up appointment for [facility]- wound clinic. * If you have any questions, please call the Dr?s office. * Diet as tolerated. * Activity:___X Restrictions as follows: partial weight on operative leg; crutches or walker for ambulation Patient Instructions: Antibiotic Form Patient Language: Latvian Stand Alone Forms: General Discharge Information Follow-up/Referrals: Lori Little MD [Physician, Orthopedics] - 12/17/24 8:00 am Referral Note: [facility] Wound clinic, 2nd floor. 8am through main entrance Discharge Medications: New amoxicillin-pot clavulanate 875-125 mg tablet 1 tablet PO Q12H 14 Days Qty: 28 0RF Continued meclizine [Antivert] 50 mg tablet 50 mg PO BID acetaminophen [Acetaminophen Extra Strength] 500 mg tablet 1,000 mg PO Q6H PRN (Reason: pain) metformin 500 mg tablet 500 mg PO BID carvedilol [Coreg] 12.5 mg Tablet 12.5 mg PO Q12HR Qty: 60 0RF spironolactone 25 mg Tablet 25 mg PO QAM Qty: 30 0RF sacubitril-valsartan [Entresto] 24-26 mg Tablet 1 tablet PO Q12HR Qty: 60 0RF Jardiance 10 mg tablet 10 mg PO DAILY 30 Days Qty: 30 6RF (DME) Dexcom G7 Sensor Device See Rx Instructions .Route Qty: 3 5RF Rx Instructions: Change sensor every 10 days (DME) Dexcom G7 Timekeeper Supervisor Misc See Rx Instructions .Route Qty: 1 0RF Rx Instructions: As directed rosuvastatin 5 mg tablet 5 mg PO DAILY Qty: 90 1RF insulin glargine [Lantus Solostar U-100 Insulin] 100 unit/mL (3 mL) insulin pen 18 unit subcut QPM Qty: 15 3RF Date of admission: 12/10/24 20:55 Primary Care Provider: Ashwin Lawler Admitting Provider: Jace Flor Attending physician on admission: Jace Flor Condition: Stable Quality VTE Prophylaxis VTE prophylaxis: mechanical ordered and pharmacologic ordered
--- NOTE | 2024-12-18 09:06 | PC.NURSE ---
Blood cx show no growth.
== END 2024-12-15 11:45 | disposition home health service (06) | DRG 854 ==
LOC: ANHED 20:54 → ANH3MEDSUR 21:52
PROVIDERS: Nurse Practitioner; Orthopaedic Surgery; Admitting Provider Internal Medicine; Emergency Provider Emergency Medicine; PCP Family Medicine; Visit Provider Physician Assistant
PROC: 0QBN0ZZ Excision of Right Metatarsal, Open Approach (ICD-10-PCS; principal; 2024-12-12 11:00)
DX: A41.9 Sepsis, unspecified organism (principal); I50.22 Chronic systolic (congestive) heart failure; L97.423 Non-pressure chronic ulcer of left heel and midfoot with necrosis of muscle; E11.621 Type 2 diabetes mellitus with foot ulcer; E11.628 Type 2 diabetes mellitus with other skin complications; L97.513 Non-pressure chronic ulcer of other part of right foot with necrosis of muscle; L08.9 Local infection of the skin and subcutaneous tissue, unspecified; E11.3593 Type 2 diabetes mellitus with proliferative diabetic retinopathy without macular edema, bilateral; E11.40 Type 2 diabetes mellitus with diabetic neuropathy, unspecified; E11.65 Type 2 diabetes mellitus with hyperglycemia; I11.0 Hypertensive heart disease with heart failure; I25.10 Atherosclerotic heart disease of native coronary artery without angina pectoris; B96.89 Other specified bacterial agents as the cause of diseases classified elsewhere; K21.9 Gastro-esophageal reflux disease without esophagitis; K44.9 Diaphragmatic hernia without obstruction or gangrene; F32.9 Major depressive disorder, single episode, unspecified; Z95.1 Presence of aortocoronary bypass graft; Z85.038 Personal history of other malignant neoplasm of large intestine; Z95.5 Presence of coronary angioplasty implant and graft; Z89.021 Acquired absence of right finger(s); Z87.891 Personal history of nicotine dependence
CPT/HCPCS: 36415; 70450; 71045; 73630; 80053; 80202; 81001; 82948; 83036; 83605; 83735; 84145; 85025; 85610; 85652; 85730; 86140; 87040; 87070; 87075; 93005; 96365; 96367; 99285; A9270; J0692; J1650; J1815; J1836; J3373; J7120

== ENCOUNTER 2025-01-31 07:11 | Outpatient (RCR) | payer MEDICARE, SELFPAY ==
--- NOTE | 2024-12-20 08:46 | PM.IMHP ---
H&P: HPI History of Present Illness Date/Time: 12/20/24 08:46 Chief Complaint: left plantar heel ulcer, right plantar forefoot ulcer Narrative: 69-year-old male returns to the [facility] 1 week status post I&D of the left calcaneus ulcer dressing change and re-evaluation. right forefoot ulcer dressing change and evaluation. Patient denies fever, chills, night sweats, nausea, vomiting or diarrhea. He is tolerating home health for dressing changes. Home health noted increased redness over the lateral left foot over the past day. Does not report any increase in activity. is said that she tries to get him to sit and elevate. Review of Systems Constitutional: Constitutional: Denies fever(s) Eyes: Eyes: Denies blurry vision ENT: Reports Normal hearing present Cardiovascular: Cardiovascular: Denies chest pain and Denies dyspnea Respiratory: Respiratory: Denies dyspnea and Denies wheezing Gastrointestinal: Gastrointestinal: Denies abdominal pain Genitourinary: Genitourinary: Denies urinary urgency Musculoskeletal: Musculoskeletal: Reports as per HPI and Denies numbness Integumentary/Breasts: Skin/Breast: Denies changing lesions and Denies sores Neurologic: Reports Normal hearing present, Denies behavioral changes, Denies confusion, Denies numbness and Denies convulsions Psychiatric: Psychiatric: Denies behavioral changes, Denies confusion and Denies hallucinations Endocrine: Endocrine: Denies heat intolerance Hematologic/Lymphatic: Hematologic/Lymphatic: Denies easy bleeding Allergic/Immunologic: Allergic/Immunologic: Denies wheezing PMFSH Past Medical History Medical History Calf pain Non-pressure chronic ulcer of other part of right foot with necrosis of muscle Heel ulcer due to DM History of colon cancer 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 GERD (gastroesophageal reflux disease) Carpal tunnel syndrome Surgical History Surgical History History of incision and drainage Complex I&D Right foot infected diabetic foot ulcer measuring approximately 5x4cm. on 12/19/21 Status post debridement (12/2020) Right foot abscess, osteomyelitis. History of coronary artery stent placement History of cardiac catheterization History of colonoscopy with polypectomy History of repair of hiatal hernia (2001) History of coronary artery bypass graft History of carpal tunnel release History of arthroscopy of right knee History of hernia repair (2018) Finger amputee Right 2nd finger secondary to crush injury. History of right hemicolectomy with ileocolic anastomsis in 2019 Family History Family History Sibling Family history of malignant neoplasm Father Family history of chronic obstructive pulmonary disease Hypertension Heart disease Mother Hypertension Cancer Sibling Cancer Sibling Cancer Sibling Cancer Social History Social History Social History: The patient is and lives with his and 1 son in [place]. They have 4 children. 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 No alcohol or illicit substance abuse. Surrogate medical decision maker: Tash Orantes, spouse. Code status: Full code. Years smoked: 10 Smoking status: Former smoker Alcohol intake: never Substance use: never Substance use type: does not use Do You Feel Safe in your Home?: Yes Lack of Transportation: No Lack of Food: Never True Current Housing: I Have Housing Concerned About Future Housing: No Difficulty Paying Gas/Electric Bills: No Difficulty Paying for Meds: No Currently Unemployed: No Education: High School Diploma/GED Difficulty w/ Childcare or Family Care: No Living arrangements: with family Occupation/Education: retired Gender identity (if verbalized by the patient): Male Sexual Orientation (if Verbalized by the Patient): Straight or Heterosexual Spiritual care concerns: No Meds Home Medications and Allergies Home Medications ?Medication ?Instructions ?Recorded ?Confirmed ?Type Jardiance 10 mg tablet 10 mg PO DAILY 30 days #30 tabs 06/18/24 12/10/24 Rx (empagliflozin) acetaminophen 500 mg tablet 1,000 mg PO Q6H PRN pain 08/27/24 12/10/24 History (Acetaminophen Extra Strength) meclizine 50 mg tablet (Antivert) 50 mg PO BID 08/27/24 12/10/24 History metformin 500 mg tablet 500 mg PO BID 08/27/24 12/10/24 History 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 sensor (Dexcom G7 #3 ea 09/13/24 12/11/24 Rx Sensor device) 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,desktop support associate,cont #1 ea 09/13/24 12/11/24 Rx (Dexcom G7 Warranty Administrator) rosuvastatin 5 mg tablet 5 mg PO DAILY #90 tabs 10/03/24 12/10/24 Rx carvedilol 12.5 mg tablet (Coreg) 12.5 mg PO Q12HR #60 tabs 10/06/24 12/10/24 Rx sacubitril 24 mg-valsartan 26 mg 1 tablet PO Q12HR #60 tabs 10/06/24 12/10/24 Rx tablet (Entresto) spironolactone 25 mg tablet 25 mg PO QAM #30 tabs 10/06/24 12/10/24 Rx insulin glargine 100 unit/mL (3 18 unit (0.18 mL) subcut QPM #15 mL 11/15/24 12/10/24 Rx mL) subcutaneous pen (Lantus Solostar U-100 Insulin) amoxicillin 875 mg-potassium 1 tablet PO Q12H 2 weeks #28 tabs 12/15/24 Rx clavulanate 125 mg tablet Allergies Allergy/AdvReac Type Severity Reaction Status Date / Time No Known Allergies Allergy Verified 12/10/24 23:04 Exam Const: General: awake, acute distress mild, diaphoretic and ill appearing acutely Orientation/consciousness: oriented to person, oriented to place, oriented to time and No confusion HENMT: Head: normal to inspection, normocephalic and atraumatic Neck: Neck: supple and nontender Resp: Effort & Inspection: normal respiratory effort GI: Inspection: non-distended GI Palp: Yes Soft to palpation Neuro: Cognition (Neuro): normal cognition Speech: normal speech Extrem: Right upper extremity: normal to inspection Left upper extremity: normal to inspection Right lower extremity: ankle Details: abnormal to inspection, swelling ( 3+) Details: diffusely, abnormal ROM Details: with range as follows (ankle dorsiflexion -10 degrees, plantar flexion 40?, inversion 15?, eversion 15?) and other ( good stability all directions); no tenderness and no ecchymosis and foot Details: abnormal to inspection ( extension deformity of the 3rd and 4th toe) Details: other ( 1 x 1 cm ulcer plantar forefoot under the 4th metatarsal head surrounding callus. No surrounding erythema. No drainage.), abnormal ROM of toe ( hallux MTP dorsiflexion 40, plantar flexion 20?), vascular exam Details: abnormal capillary refill Location: of all toes; dorsalis pedis pulse absent and posterior tibial pulse absent, tendon exam Details: active flexion abnormal and active extension abnormal, motor-sensory exam Details: two point discrimination abnormal Location: in all toes and light-touch abnormal Location: in all toes and other (Hallux metatarsophalangeal motion 20? dorsiflexion/10? plantar flexion) Left lower extremity: ankle Details: normal to inspection and abnormal ROM Details: with range as follows (ankle dorsiflexion -10 degrees, plantar flexion 40?, inversion 15?, eversion 15?); no tenderness and no swelling and foot Details: abnormal to inspection ( Erythema over the lateral border of the foot which improves with elevation), tenderness, abnormal ROM of toe, warmth, edema Location: of the dorsal foot ( 4+), vascular exam Details: abnormal capillary refill Location: of all toes; dorsalis pedis pulse absent and posterior tivial pulse absent, tendon exam active flexion abnormal of the great toe and active extension abnormal of the great toe, motor-sensory exam two point discrimination abnormal and light-touch abnormal in all toes and other ( Plantar heel ulcer 2 x 5 cm with 3 cm depth. Tunneling at the 1 o'clock position to 4.5 cm. No purulence or foul odor. Mild serous drainage.); abnormal capillary refill and no crepitus Other: Dressing changed. Wound on the plantar aspect of the right 4th MTP joint measures 0.1x0.1x0.1 cm. 100% red/pink wound bed. No signs of active infection. Dressing changed. Wound on the calcaneus of the left heel measures 5x3x6.0 cm, Probes to bone. Surrounding soft tissue swollen with erythema extending around the heel- to lateral foot which improves with elevation. Psych: Mental Status: mental status grossly normal Affect: normal affect Assessment and Plan Assessment and plan (1) Infected pressure ulcer: Qualifiers: Pressure injury stage: stage 4 Qualified Code(s): L89.94 - Pressure ulcer of unspecified site, stage 4; L08.9 - Local infection of the skin and subcutaneous tissue, unspecified Code(s): L89.90 - Pressure ulcer of unspecified site, unspecified stage; L08.9 - Local infection of the skin and subcutaneous tissue, unspecified Status: Acute (2) Diabetic foot infection: Code(s): E11.628 - Type 2 diabetes mellitus with other skin complications; L08.9 - Local infection of the skin and subcutaneous tissue, unspecified Status: Acute (3) Heel ulcer due to DM: Qualifiers: Diabetes mellitus type: type 2 Laterality: left Non-pressure ulcer stage: with necrosis of muscle Qualified Code(s): E11.621 - Type 2 diabetes mellitus with foot ulcer; L97.423 - Non-pressure chronic ulcer of left heel and midfoot with necrosis of muscle Code(s): E11.621 - Type 2 diabetes mellitus with foot ulcer; L97.409 - Non-pressure chronic ulcer of unspecified heel and midfoot with unspecified severity Status: Acute Assessment and Plan: 1 week status post debridement. Wound itself appears clean but there is more erythema swelling the lateral foot. Discussed with patient. He has declined hospital admission. Recommend adding 2nd antibiotic and switching Dakin's to silver gel with Idalmis. Discussed with patient and family including his that if wound worsens or he has any systemic changes they need to present to the emergency room immediately. Follow-up in 4 days for reassessment (4) Non-pressure chronic ulcer of other part of right foot with necrosis of muscle: Code(s): L97.513 - Non-pressure chronic ulcer of other part of right foot with necrosis of muscle Status: Acute Assessment and Plan: Chronic ulcer right foot with deformity of the 3rd and 4th metatarsophalangeal joints. Previous injury with hardware nail through the foot. Previous osteomyelitis. Will benefit from surgical excision of metatarsophalangeal joints, relief of pressure and closure of ulceration. We will attempt realignment of toes. Plan to proceed if cardiac stabilization able to be completed and cleared. Continue with offloading for now. Plan Awaiting evaluation and treatment for his heart failure before proceeding with further surgery for his feet.
--- NOTE | 2024-12-24 09:28 | PCWOUND ---
WOCN NOTE Patient states feeling dizzy all the time and having issues walking. Patient scheduled to see a doctor at [facility] for evaluation for Pacemaker on 01/03/25. Encouraged patient's spouse to contact office to see if they have any cancellations this week as patient is now becoming more symptomatic. Both stated understanding. Patient sat in exam chair for approximately 5 minutes before standing to make sure he wasn't dizzy. Patient left office in wheelchair.
--- NOTE | 2024-12-24 15:55 | PM.IMHP ---
H&P: HPI History of Present Illness Date/Time: 12/24/24 15:55 Chief Complaint: left plantar heel ulcer, right plantar forefoot ulcer Narrative: 69-year-old male returns to the [facility] 1 week, 4 days s/p I&D of the left calcaneus ulcer dressing change and re-evaluation of right forefoot ulcer. Patient denies fever, chills, night sweats, nausea, vomiting or diarrhea. He is tolerating home health for dressing changes. Significant improvement in previous redness. Review of Systems Constitutional: Constitutional: Denies fever(s) Eyes: Eyes: Denies blurry vision ENT: Reports Normal hearing present Cardiovascular: Cardiovascular: Denies chest pain and Denies dyspnea Respiratory: Respiratory: Denies dyspnea and Denies wheezing Gastrointestinal: Gastrointestinal: Denies abdominal pain Genitourinary: Genitourinary: Denies urinary urgency Musculoskeletal: Musculoskeletal: Reports as per HPI and Denies numbness Integumentary/Breasts: Skin/Breast: Denies changing lesions and Denies sores Neurologic: Reports Normal hearing present, Denies behavioral changes, Denies confusion, Denies numbness and Denies convulsions Psychiatric: Psychiatric: Denies behavioral changes, Denies confusion and Denies hallucinations Endocrine: Endocrine: Denies heat intolerance Hematologic/Lymphatic: Hematologic/Lymphatic: Denies easy bleeding Allergic/Immunologic: Allergic/Immunologic: Denies wheezing PMFSH Past Medical History Medical History Calf pain Non-pressure chronic ulcer of other part of right foot with necrosis of muscle Heel ulcer due to DM History of colon cancer 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 GERD (gastroesophageal reflux disease) Carpal tunnel syndrome Surgical History Surgical History History of incision and drainage Complex I&D Right foot infected diabetic foot ulcer measuring approximately 5x4cm. on 12/19/21 Status post debridement (12/2020) Right foot abscess, osteomyelitis. History of coronary artery stent placement History of cardiac catheterization History of colonoscopy with polypectomy History of repair of hiatal hernia (2002) History of coronary artery bypass graft History of carpal tunnel release History of arthroscopy of right knee History of hernia repair (2019) Finger amputee Right 2nd finger secondary to crush injury. History of right hemicolectomy with ileocolic anastomsis in 2019 Family History Family History Sibling Family history of malignant neoplasm Father Family history of chronic obstructive pulmonary disease Hypertension Heart disease Mother Hypertension Cancer Sibling Cancer Sibling Cancer Sibling Cancer Social History Social History Social History: The patient is and lives with his and 1 son in [place]. They have 4 children. 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 No alcohol or illicit substance abuse. Surrogate medical decision maker: Tash Orantes, spouse. Code status: Full code. Years smoked: 10 Smoking status: Former smoker Tobacco type: cigarettes Alcohol intake: never Substance use: never Substance use type: does not use Do You Feel Safe in your Home?: Yes Lack of Transportation: No Lack of Food: Never True Current Housing: I Have Housing Concerned About Future Housing: No Difficulty Paying Gas/Electric Bills: No Difficulty Paying for Meds: No Currently Unemployed: No Education: High School Diploma/GED Difficulty w/ Childcare or Family Care: No Living arrangements: with family Occupation/Education: retired Gender identity (if verbalized by the patient): Male Sexual Orientation (if Verbalized by the Patient): Straight or Heterosexual Spiritual care concerns: No Meds Home Medications and Allergies Home Medications ?Medication ?Instructions ?Recorded ?Confirmed ?Type Jardiance 10 mg tablet 10 mg PO DAILY 30 days #30 tabs 06/18/24 12/20/24 Rx (empagliflozin) acetaminophen 500 mg tablet 1,000 mg PO Q6H PRN pain 08/27/24 12/20/24 History (Acetaminophen Extra Strength) meclizine 50 mg tablet (Antivert) 50 mg PO BID 08/27/24 12/20/24 History metformin 500 mg tablet 500 mg PO BID 08/27/24 12/20/24 History 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 sensor (Dexcom G7 #3 ea 09/13/24 12/11/24 Rx Sensor device) 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,assistant librarian,cont #1 ea 09/13/24 12/11/24 Rx (Dexcom G7 Surveillance Officer) rosuvastatin 5 mg tablet 5 mg PO DAILY #90 tabs 10/03/24 12/20/24 Rx carvedilol 12.5 mg tablet (Coreg) 12.5 mg PO Q12HR #60 tabs 10/06/24 12/20/24 Rx sacubitril 24 mg-valsartan 26 mg 1 tablet PO Q12HR #60 tabs 10/06/24 12/20/24 Rx tablet (Entresto) spironolactone 25 mg tablet 25 mg PO QAM #30 tabs 10/06/24 12/20/24 Rx insulin glargine 100 unit/mL (3 18 unit (0.18 mL) subcut QPM #15 mL 11/15/24 12/20/24 Rx mL) subcutaneous pen (Lantus Solostar U-100 Insulin) amoxicillin 875 mg-potassium 1 tablet PO Q12H 2 weeks #28 tabs 12/15/24 12/20/24 Rx clavulanate 125 mg tablet sulfamethoxazole 800 1 tablet PO Q12H #30 tabs 12/20/24 Rx mg-trimethoprim 160 mg tablet (Bactrim DS) Allergies Allergy/AdvReac Type Severity Reaction Status Date / Time No Known Allergies Allergy Verified 12/10/24 23:04 Exam Const: General: awake, acute distress mild, diaphoretic and ill appearing acutely Orientation/consciousness: oriented to person, oriented to place, oriented to time and No confusion HENMT: Head: normal to inspection, normocephalic and atraumatic Neck: Neck: supple and nontender Resp: Effort & Inspection: normal respiratory effort GI: Inspection: non-distended GI Palp: Yes Soft to palpation Neuro: Cognition (Neuro): normal cognition Speech: normal speech Extrem: Right upper extremity: normal to inspection Left upper extremity: normal to inspection Right lower extremity: ankle Details: abnormal to inspection, swelling ( 3+) Details: diffusely, abnormal ROM Details: with range as follows (ankle dorsiflexion -10 degrees, plantar flexion 40?, inversion 15?, eversion 15?) and other ( good stability all directions); no tenderness and no ecchymosis and foot Details: abnormal to inspection ( extension deformity of the 3rd and 4th toe) Details: other ( 1 x 1 cm ulcer plantar forefoot under the 4th metatarsal head surrounding callus. No surrounding erythema. No drainage.), abnormal ROM of toe ( hallux MTP dorsiflexion 40, plantar flexion 20?), vascular exam Details: abnormal capillary refill Location: of all toes; dorsalis pedis pulse absent and posterior tibial pulse absent, tendon exam Details: active flexion abnormal and active extension abnormal, motor-sensory exam Details: two point discrimination abnormal Location: in all toes and light-touch abnormal Location: in all toes and other (Hallux metatarsophalangeal motion 20? dorsiflexion/10? plantar flexion) Left lower extremity: ankle Details: normal to inspection and abnormal ROM Details: with range as follows (ankle dorsiflexion -10 degrees, plantar flexion 40?, inversion 15?, eversion 15?); no tenderness and no swelling and foot Details: abnormal to inspection ( Erythema over the lateral border of the foot which improves with elevation), tenderness, abnormal ROM of toe, warmth, edema Location: of the dorsal foot ( 4+), vascular exam Details: abnormal capillary refill Location: of all toes; dorsalis pedis pulse absent and posterior tivial pulse absent, tendon exam active flexion abnormal of the great toe and active extension abnormal of the great toe, motor-sensory exam two point discrimination abnormal and light-touch abnormal in all toes and other ( Plantar heel ulcer 2 x 5 cm with 3 cm depth. Tunneling at the 1 o'clock position to 4.5 cm. No purulence or foul odor. Mild serous drainage.); abnormal capillary refill and no crepitus Other: Dressing changed. Wound on the plantar aspect of the right 4th MTP joint measures 0.1x0.1x0.1 cm. 100% red/pink wound bed. No signs of active infection. Dressing changed. Wound on the calcaneus of the left heel measures 3.8x2.4x2.3 cm, Probes to bone. Surrounding soft tissue swollen with erythema extending around the heel- to lateral foot which improves with elevation. Psych: Mental Status: mental status grossly normal Affect: normal affect Assessment and Plan Assessment and plan (1) Infected pressure ulcer: Qualifiers: Pressure injury stage: stage 4 Qualified Code(s): L89.94 - Pressure ulcer of unspecified site, stage 4; L08.9 - Local infection of the skin and subcutaneous tissue, unspecified Code(s): L89.90 - Pressure ulcer of unspecified site, unspecified stage; L08.9 - Local infection of the skin and subcutaneous tissue, unspecified Status: Acute (2) Diabetic foot infection: Code(s): E11.628 - Type 2 diabetes mellitus with other skin complications; L08.9 - Local infection of the skin and subcutaneous tissue, unspecified Status: Acute (3) Heel ulcer due to DM: Qualifiers: Diabetes mellitus type: type 2 Laterality: left Non-pressure ulcer stage: with necrosis of muscle Qualified Code(s): E11.621 - Type 2 diabetes mellitus with foot ulcer; L97.423 - Non-pressure chronic ulcer of left heel and midfoot with necrosis of muscle Code(s): E11.621 - Type 2 diabetes mellitus with foot ulcer; L97.409 - Non-pressure chronic ulcer of unspecified heel and midfoot with unspecified severity Status: Acute Assessment and Plan: 1 week, 4 days status post debridement. Wound with improvement in appearance and erythema. Discussed with patient. Continue daily dressing changes. Follow up in 2 weeks. Continue HH. If worsening or erythema returns, contact wound clinic for reevlauation sooner. Continue compliance with BG control and antibiotics. (4) Non-pressure chronic ulcer of other part of right foot with necrosis of muscle: Code(s): L97.513 - Non-pressure chronic ulcer of other part of right foot with necrosis of muscle Status: Acute Plan Awaiting evaluation and treatment for his heart failure before proceeding with further surgery for his feet.
--- NOTE | 2025-01-07 09:15 | P.PNOP_ITS ---
Subjective Subjective Date/Time Seen: 01/07/25 09:15
--- NOTE | 2025-01-07 09:15 | PM.PNORT ---
Subjective Subjective Date/Time Seen: 01/07/25 09:15
--- NOTE | 2025-01-07 13:06 | PM.IMHP ---
H&P: HPI History of Present Illness Date/Time: 01/07/25 13:06 Chief Complaint: left plantar heel ulcer, right plantar forefoot ulcer Narrative: 69-year-old male returns to the [facility] 3 weeks, 4 days s/p I&D of the left calcaneus ulcer dressing change and re-evaluation of right forefoot ulcer. Patient denies fever, chills, night sweats, nausea, vomiting or diarrhea. He is tolerating home health for dressing changes. Awaiting pacemaker placement. Review of Systems Constitutional: Constitutional: Denies fever(s) Eyes: Eyes: Denies blurry vision ENT: Reports Normal hearing present Cardiovascular: Cardiovascular: Denies chest pain and Denies dyspnea Respiratory: Respiratory: Denies dyspnea and Denies wheezing Gastrointestinal: Gastrointestinal: Denies abdominal pain Genitourinary: Genitourinary: Denies urinary urgency Musculoskeletal: Musculoskeletal: Reports as per HPI and Denies numbness Integumentary/Breasts: Skin/Breast: Denies changing lesions and Denies sores Neurologic: Reports Normal hearing present, Denies behavioral changes, Denies confusion, Denies numbness and Denies convulsions Psychiatric: Psychiatric: Denies behavioral changes, Denies confusion and Denies hallucinations Endocrine: Endocrine: Denies heat intolerance Hematologic/Lymphatic: Hematologic/Lymphatic: Denies easy bleeding Allergic/Immunologic: Allergic/Immunologic: Denies wheezing PMFSH Past Medical History Medical History Type 2 diabetes mellitus with foot ulcer Calf pain Non-pressure chronic ulcer of other part of right foot with necrosis of muscle Heel ulcer due to DM History of colon cancer 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 GERD (gastroesophageal reflux disease) Carpal tunnel syndrome Surgical History Surgical History History of incision and drainage Complex I&D Right foot infected diabetic foot ulcer measuring approximately 5x4cm. on 12/19/21 Status post debridement (12/2020) Right foot abscess, osteomyelitis. History of coronary artery stent placement History of cardiac catheterization History of colonoscopy with polypectomy History of repair of hiatal hernia (2001) History of coronary artery bypass graft History of carpal tunnel release History of arthroscopy of right knee History of hernia repair (2018) Finger amputee Right 2nd finger secondary to crush injury. History of right hemicolectomy with ileocolic anastomsis in 2019 Family History Family History Sibling Family history of malignant neoplasm Father Family history of chronic obstructive pulmonary disease Hypertension Heart disease Mother Hypertension Cancer Sibling Cancer Sibling Cancer Sibling Cancer Social History Social History Social History: The patient is and lives with his and 1 son in [place]. They have 4 children. 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 No alcohol or illicit substance abuse. Surrogate medical decision maker: Tash Orantes, spouse. Code status: Full code. Years smoked: 10 Smoking status: Former smoker Tobacco type: cigarettes Alcohol intake: never Substance use: never Substance use type: does not use Do You Feel Safe in your Home?: Yes Lack of Transportation: No Lack of Food: Never True Current Housing: I Have Housing Concerned About Future Housing: No Difficulty Paying Gas/Electric Bills: No Difficulty Paying for Meds: No Currently Unemployed: No Education: High School Diploma/GED Difficulty w/ Childcare or Family Care: No Living arrangements: with family Occupation/Education: retired Gender identity (if verbalized by the patient): Male Sexual Orientation (if Verbalized by the Patient): Straight or Heterosexual Spiritual care concerns: No Meds Home Medications and Allergies Home Medications ?Medication ?Instructions ?Recorded ?Confirmed ?Type Jardiance 10 mg tablet 10 mg PO DAILY 30 days #30 tabs 06/18/24 12/31/24 Rx (empagliflozin) acetaminophen 500 mg tablet 1,000 mg PO Q6H PRN pain 08/27/24 12/31/24 History (Acetaminophen Extra Strength) meclizine 50 mg tablet (Antivert) 50 mg PO BID 08/27/24 12/31/24 History metformin 500 mg tablet 500 mg PO BID 08/27/24 12/31/24 History 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 sensor (Dexcom G7 #3 ea 09/13/24 12/11/24 Rx Sensor device) 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,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,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 #1 ea 09/13/24 12/11/24 Rx (Dexcom G7 Lead Cargo Mover) rosuvastatin 5 mg tablet 5 mg PO DAILY #90 tabs 10/03/24 12/31/24 Rx carvedilol 12.5 mg tablet (Coreg) 12.5 mg PO Q12HR #60 tabs 10/06/24 12/31/24 Rx sacubitril 24 mg-valsartan 26 mg 1 tablet PO Q12HR #60 tabs 10/06/24 12/31/24 Rx tablet (Entresto) spironolactone 25 mg tablet 25 mg PO QAM #30 tabs 10/06/24 12/31/24 Rx insulin glargine 100 unit/mL (3 18 unit (0.18 mL) subcut QPM #15 mL 11/15/24 12/31/24 Rx mL) subcutaneous pen (Lantus Solostar U-100 Insulin) amoxicillin 875 mg-potassium 1 tablet PO Q12H 2 weeks #28 tabs 12/15/24 12/31/24 Rx clavulanate 125 mg tablet sulfamethoxazole 800 1 tablet PO Q12H #30 tabs 12/20/24 12/31/24 Rx mg-trimethoprim 160 mg tablet (Bactrim DS) Allergies Allergy/AdvReac Type Severity Reaction Status Date / Time No Known Allergies Allergy Verified 12/31/24 13:58 Exam Const: General: awake, acute distress mild, diaphoretic and ill appearing acutely Orientation/consciousness: oriented to person, oriented to place, oriented to time and No confusion HENMT: Head: normal to inspection, normocephalic and atraumatic Neck: Neck: supple and nontender Resp: Effort & Inspection: normal respiratory effort GI: Inspection: non-distended GI Palp: Yes Soft to palpation Neuro: Cognition (Neuro): normal cognition Speech: normal speech Extrem: Right upper extremity: normal to inspection Left upper extremity: normal to inspection Right lower extremity: ankle Details: abnormal to inspection, swelling ( 3+) Details: diffusely, abnormal ROM Details: with range as follows (ankle dorsiflexion -10 degrees, plantar flexion 40?, inversion 15?, eversion 15?) and other ( good stability all directions); no tenderness and no ecchymosis and foot Details: abnormal to inspection ( extension deformity of the 3rd and 4th toe) Details: other ( 1 x 1 cm ulcer plantar forefoot under the 4th metatarsal head surrounding callus. No surrounding erythema. No drainage.), abnormal ROM of toe ( hallux MTP dorsiflexion 40, plantar flexion 20?), vascular exam Details: abnormal capillary refill Location: of all toes; dorsalis pedis pulse absent and posterior tibial pulse absent, tendon exam Details: active flexion abnormal and active extension abnormal, motor-sensory exam Details: two point discrimination abnormal Location: in all toes and light-touch abnormal Location: in all toes and other (Hallux metatarsophalangeal motion 20? dorsiflexion/10? plantar flexion) Left lower extremity: ankle Details: normal to inspection and abnormal ROM Details: with range as follows (ankle dorsiflexion -10 degrees, plantar flexion 40?, inversion 15?, eversion 15?); no tenderness and no swelling and foot Details: abnormal to inspection ( Erythema over the lateral border of the foot which improves with elevation), tenderness, abnormal ROM of toe, warmth, edema Location: of the dorsal foot ( 4+), vascular exam Details: abnormal capillary refill Location: of all toes; dorsalis pedis pulse absent and posterior tivial pulse absent, tendon exam active flexion abnormal of the great toe and active extension abnormal of the great toe, motor-sensory exam two point discrimination abnormal and light-touch abnormal in all toes and other ( Plantar heel ulcer 2 x 5 cm with 3 cm depth. Tunneling at the 1 o'clock position to 4.5 cm. No purulence or foul odor. Mild serous drainage.); abnormal capillary refill and no crepitus Other: Dressing changed. Wound on the plantar aspect of the right 4th MTP joint measures 0.4x0.6x0.3 cm. 100% red/pink wound bed. No signs of active infection. Dressing changed. Wound on the calcaneus of the left heel measures 2.5x5.0x1.7 cm, Probes to bone. Surrounding soft tissue swollen with erythema extending around the heel- to lateral foot which improves with elevation. Psych: Mental Status: mental status grossly normal Affect: normal affect Assessment and Plan Assessment and plan (1) Heel ulcer due to DM: Qualifiers: Diabetes mellitus type: type 2 Laterality: left Non-pressure ulcer stage: with necrosis of muscle Qualified Code(s): E11.621 - Type 2 diabetes mellitus with foot ulcer; L97.423 - Non-pressure chronic ulcer of left heel and midfoot with necrosis of muscle Code(s): E11.621 - Type 2 diabetes mellitus with foot ulcer; L97.409 - Non-pressure chronic ulcer of unspecified heel and midfoot with unspecified severity Status: Acute Assessment and Plan: 3 weeks, 4 days status post debridement. Wound with improvement in appearance and erythema. Discussed with patient. Continue daily dressing changes. Follow up in 1 weeks. Continue HH. If worsening or erythema returns, contact wound clinic for reevaluation sooner. Continue compliance with BG control and antibiotics. (2) Infected pressure ulcer: Qualifiers: Pressure injury stage: stage 4 Qualified Code(s): L89.94 - Pressure ulcer of unspecified site, stage 4; L08.9 - Local infection of the skin and subcutaneous tissue, unspecified Code(s): L89.90 - Pressure ulcer of unspecified site, unspecified stage; L08.9 - Local infection of the skin and subcutaneous tissue, unspecified Status: Acute (3) Diabetic foot infection: Code(s): E11.628 - Type 2 diabetes mellitus with other skin complications; L08.9 - Local infection of the skin and subcutaneous tissue, unspecified Status: Acute (4) Non-pressure chronic ulcer of other part of right foot with necrosis of muscle: Code(s): L97.513 - Non-pressure chronic ulcer of other part of right foot with necrosis of muscle Status: Acute Plan Awaiting evaluation and treatment for his heart failure before proceeding with further surgery for his feet.
--- NOTE | 2025-01-17 08:33 | PM.IMHP ---
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 GERD (gastroesophageal reflux disease) Carpal tunnel syndrome Surgical History Surgical History History of incision and drainage Complex I&D Right foot infected diabetic foot ulcer measuring approximately 5x4cm. on 12/19/21 Status post debridement (12/2020) Right foot abscess, osteomyelitis. History of coronary artery stent placement History of cardiac catheterization History of colonoscopy with polypectomy History of repair of hiatal hernia (2001) History of coronary artery bypass graft History of carpal tunnel release History of arthroscopy of right knee History of hernia repair (2018) Finger amputee Right 2nd finger secondary to crush injury. History of right hemicolectomy with ileocolic anastomsis in 2019 Family History Family History Sibling Family history of malignant neoplasm Father Family history of chronic obstructive pulmonary disease Hypertension Heart disease Mother Hypertension Cancer Sibling Cancer Sibling Cancer Sibling Cancer Social History Social History Social History: The patient is and lives with his and 1 son in [place]. They have 4 children. 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 No alcohol or illicit substance abuse. Surrogate medical decision maker: Tash Orantes, spouse. Code status: Full code. Years smoked: 10 Smoking status: Former smoker Tobacco type: cigarettes Alcohol intake: never Substance use: never Substance use type: does not use Do You Feel Safe in your Home?: Yes Lack of Transportation: No Lack of Food: Never True Current Housing: I Have Housing Concerned About Future Housing: No Difficulty Paying Gas/Electric Bills: No Difficulty Paying for Meds: No Currently Unemployed: No Education: High School Diploma/GED Difficulty w/ Childcare or Family Care: No Living arrangements: with family Occupation/Education: retired Gender identity (if verbalized by the patient): Male Sexual Orientation (if Verbalized by the Patient): Straight or Heterosexual Spiritual care concerns: No Meds Home Medications and Allergies Home Medications ?Medication ?Instructions ?Recorded ?Confirmed ?Type Jardiance 10 mg tablet 10 mg PO DAILY 30 days #30 tabs 06/18/24 12/31/24 Rx (empagliflozin) acetaminophen 500 mg tablet 1,000 mg PO Q6H PRN pain 08/27/24 12/31/24 History (Acetaminophen Extra Strength) meclizine 50 mg tablet (Antivert) 50 mg PO BID 08/27/24 12/31/24 History metformin 500 mg tablet 500 mg PO BID 08/27/24 12/31/24 History 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 sensor (Dexcom G7 #3 ea 09/13/24 12/11/24 Rx Sensor device) 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,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,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 ea 09/13/24 12/11/24 Rx (Dexcom G7 Kiln Charger) rosuvastatin 5 mg tablet 5 mg PO DAILY #90 tabs 10/03/24 12/31/24 Rx carvedilol 12.5 mg tablet (Coreg) 12.5 mg PO Q12HR #60 tabs 10/06/24 12/31/24 Rx insulin glargine 100 unit/mL (3 18 unit (0.18 mL) subcut QPM #15 mL 11/15/24 12/31/24 Rx mL) subcutaneous pen (Lantus Solostar U-100 Insulin) amoxicillin 875 mg-potassium 1 tablet PO Q12H 2 weeks #28 tabs 12/15/24 12/31/24 Rx clavulanate 125 mg tablet sulfamethoxazole 800 1 tablet PO Q12H #30 tabs 12/20/24 12/31/24 Rx mg-trimethoprim 160 mg tablet (Bactrim DS) escitalopram oxalate 10 mg tablet 10 mg PO DAILY #90 tabs 01/13/25 Rx sacubitril 24 mg-valsartan 26 mg 1 tablet PO Q12HR #60 tabs 01/14/25 Rx tablet (Entresto) spironolactone 25 mg tablet 25 mg PO QAM #90 tabs 01/14/25 Rx Allergies Allergy/AdvReac Type Severity Reaction Status Date / Time No Known Allergies Allergy Verified 12/31/24 13:58 Exam Const: General: awake, acute distress mild, diaphoretic and ill appearing acutely Orientation/consciousness: oriented to person, oriented to place, oriented to time and No confusion HENMT: Head: normal to inspection, normocephalic and atraumatic Neck: Neck: supple and nontender Resp: Effort & Inspection: normal respiratory effort GI: Inspection: non-distended GI Palp: Yes Soft to palpation Neuro: Cognition (Neuro): normal cognition Speech: normal speech Extrem: Right upper extremity: normal to inspection Left upper extremity: normal to inspection Right lower extremity: ankle Details: abnormal to inspection, swelling ( 3+) Details: diffusely, abnormal ROM Details: with range as follows (ankle dorsiflexion -10 degrees, plantar flexion 40?, inversion 15?, eversion 15?) and other ( good stability all directions); no tenderness and no ecchymosis and foot Details: abnormal to inspection ( extension deformity of the 3rd and 4th toe) Details: other ( 1 x 1 cm ulcer plantar forefoot under the 4th metatarsal head surrounding callus. No surrounding erythema. No drainage.), abnormal ROM of toe ( hallux MTP dorsiflexion 40, plantar flexion 20?), vascular exam Details: abnormal capillary refill Location: of all toes; dorsalis pedis pulse absent and posterior tibial pulse absent, tendon exam Details: active flexion abnormal and active extension abnormal, motor-sensory exam Details: two point discrimination abnormal Location: in all toes and light-touch abnormal Location: in all toes and other (Hallux metatarsophalangeal motion 20? dorsiflexion/10? plantar flexion) Left lower extremity: ankle Details: normal to inspection and abnormal ROM Details: with range as follows (ankle dorsiflexion -10 degrees, plantar flexion 40?, inversion 15?, eversion 15?); no tenderness and no swelling and foot Details: abnormal to inspection ( Erythema over the lateral border of the foot which improves with elevation), tenderness, abnormal ROM of toe, warmth, edema Location: of the dorsal foot ( 4+), vascular exam Details: abnormal capillary refill Location: of all toes; dorsalis pedis pulse absent and posterior tivial pulse absent, tendon exam active flexion abnormal of the great toe and active extension abnormal of the great toe, motor-sensory exam two point discrimination abnormal and light-touch abnormal in all toes and other ( Plantar heel ulcer 2 x 5 cm with 3 cm depth. Tunneling at the 1 o'clock position to 4.5 cm. No purulence or foul odor. Mild serous drainage.); abnormal capillary refill and no crepitus Other: Dressing changed. Wound on the plantar aspect of the right 4th MTP joint with abundant callus formation requiring debridement. Underlying would measures 1.7x0.5x0.2 cm. 100% red/pink wound bed. No signs of active infection. Dressing changed. Wound on the calcaneus of the left heel measures 1.5x4.0x2.0 cm, Probes to bone. Surrounding soft tissue swollen with minimal erythema. Psych: Mental Status: mental status grossly normal Affect: normal affect Assessment and Plan Assessment and plan (1) Heel ulcer due to DM: Qualifiers: Diabetes mellitus type: type 2 Laterality: left Non-pressure ulcer stage: with necrosis of muscle Qualified Code(s): E11.621 - Type 2 diabetes mellitus with foot ulcer; L97.423 - Non-pressure chronic ulcer of left heel and midfoot with necrosis of muscle Code(s): E11.621 - Type 2 diabetes mellitus with foot ulcer; L97.409 - Non-pressure chronic ulcer of unspecified heel and midfoot with unspecified severity Status: Acute Assessment and Plan: 5 weeks, 3 days status post surgical debridement of the left plantar heel. wound on the plantar aspect of the left heel measures 1.5 x 4 x 2 cm today probing to bone. Surrounding callus debridement performed. No evidence of worsening infection. No purulence. No malodor. Menu daily dressing changes with assistance from home health. Patient may benefit from a total contact cast application for additional pressure offloading. Wound clinic nurses to begin authorization. (2) Infected pressure ulcer: Qualifiers: Pressure injury stage: stage 4 Qualified Code(s): L89.94 - Pressure ulcer of unspecified site, stage 4; L08.9 - Local infection of the skin and subcutaneous tissue, unspecified Code(s): L89.90 - Pressure ulcer of unspecified site, unspecified stage; L08.9 - Local infection of the skin and subcutaneous tissue, unspecified Status: Acute (3) Diabetic foot infection: Code(s): E11.628 - Type 2 diabetes mellitus with other skin complications; L08.9 - Local infection of the skin and subcutaneous tissue, unspecified Status: Acute Assessment and Plan: Debridement of the skin, subcutaneous tissue and muscle debrided under sterile conditions with #15 blade knife. All devitalized tissue including muscle removed. Procedure tolerated well. Patient instructed on post-debridement dressing changes. Reviewed signs/symptoms of complications to report to the office. Patient verbalized understanding and agrees with plan of care. (4) Non-pressure chronic ulcer of other part of right foot with necrosis of muscle: Code(s): L97.513 - Non-pressure chronic ulcer of other part of right foot with necrosis of muscle Status: Acute Assessment and Plan: Wound on the plantar aspect of the right foot measures 1.7 x 0.5 x 0.2 cm. This measurement was obtained status post debridement of today. Begin daily dressing changes with silver gel and foam. Recommended pressure offloading and close diabetic control. Plan Awaiting evaluation and treatment for his heart failure before proceeding with further surgery for his feet. Debridement/Burn/Wound Pre Procedure Consent was obtained, Procedures/risks were explained, Questions were answered, Correct patient identified and Correct side and site confirmed Episode Return Visit Area was prepped and draped using sterile technique?: Yes Ulcer/Wound Debridement, skin, first 20 sq cm or less: Yes Right (4th MTP AND LEFT HEEL ) Comments:: Debridement of the skin, subcutaneous tissue and muscle debrided under sterile conditions with #15 blade knife. All devitalized tissue including muscle removed. Procedure tolerated well. Patient instructed on post-debridement dressing changes. Reviewed signs/symptoms of complications to report to the office. Patient verbalized understanding and agrees with plan of care. Dressing Applied antibiotic ointment and Applied sterile dressing Post Procedure Patient tolerated the procedure well?: Tolerated procedure well
--- NOTE | 2025-01-31 10:14 | PM.IMHP ---
H&P: HPI History of Present Illness Date/Time: 01/31/25 10:14 Chief Complaint: Bilateral diabetic foot ulcer Narrative: presents to [facility] with regular tennis shoes on. States was doing well with dressing changes up until yesterday. Noted increased swelling left lower extremity ankle foot and tightness overnight. Reports good blood sugar control. No systemic complaints. He has been evaluated by Cardiology with scheduled plan for defibrillator in April 2025. Review of Systems Constitutional: Constitutional: Denies fever(s) Eyes: Eyes: Denies blurry vision ENT: Reports Normal hearing present Cardiovascular: Cardiovascular: Denies chest pain and Denies dyspnea Respiratory: Respiratory: Denies dyspnea and Denies wheezing Gastrointestinal: Gastrointestinal: Denies abdominal pain Genitourinary: Genitourinary: Denies urinary urgency Musculoskeletal: Musculoskeletal: Reports as per HPI and Denies numbness Integumentary/Breasts: Skin/Breast: Denies changing lesions and Denies sores Neurologic: Reports Normal hearing present, Denies behavioral changes, Denies confusion, Denies numbness and Denies convulsions Psychiatric: Psychiatric: Denies behavioral changes, Denies confusion and Denies hallucinations Endocrine: Endocrine: Denies heat intolerance Hematologic/Lymphatic: Hematologic/Lymphatic: Denies easy bleeding Allergic/Immunologic: Allergic/Immunologic: Denies wheezing PMFSH Past Medical History Medical History Type 2 diabetes mellitus with foot ulcer Calf pain Non-pressure chronic ulcer of other part of right foot with necrosis of muscle Heel ulcer due to DM History of colon cancer 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 GERD (gastroesophageal reflux disease) Carpal tunnel syndrome Surgical History Surgical History History of incision and drainage Complex I&D Right foot infected diabetic foot ulcer measuring approximately 5x4cm. on 12/19/21 Status post debridement (12/2020) Right foot abscess, osteomyelitis. History of coronary artery stent placement History of cardiac catheterization History of colonoscopy with polypectomy History of repair of hiatal hernia (2001) History of coronary artery bypass graft History of carpal tunnel release History of arthroscopy of right knee History of hernia repair (2019) Finger amputee Right 2nd finger secondary to crush injury. History of right hemicolectomy with ileocolic anastomsis in 2019 Family History Family History Sibling Family history of malignant neoplasm Father Family history of chronic obstructive pulmonary disease Hypertension Heart disease Mother Hypertension Cancer Sibling Cancer Sibling Cancer Sibling Cancer Social History Social History Social History: The patient is and lives with his and 1 son in [place]. They have 4 children. 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 No alcohol or illicit substance abuse. Surrogate medical decision maker: Tash Orantes, spouse. Code status: Full code. Years smoked: 10 Smoking status: Former smoker Tobacco type: cigarettes Alcohol intake: never Substance use: never Substance use type: does not use Do You Feel Safe in your Home?: Yes Lack of Transportation: No Lack of Food: Never True Current Housing: I Have Housing Concerned About Future Housing: No Difficulty Paying Gas/Electric Bills: No Difficulty Paying for Meds: No Currently Unemployed: No Education: High School Diploma/GED Difficulty w/ Childcare or Family Care: No Living arrangements: with family Occupation/Education: retired Gender identity (if verbalized by the patient): Male Sexual Orientation (if Verbalized by the Patient): Straight or Heterosexual Spiritual care concerns: No Meds Home Medications and Allergies Home Medications ?Medication ?Instructions ?Recorded ?Confirmed ?Type Jardiance 10 mg tablet 10 mg PO DAILY 30 days #30 tabs 06/18/24 12/31/24 Rx (empagliflozin) acetaminophen 500 mg tablet 1,000 mg PO Q6H PRN pain 08/27/24 12/31/24 History (Acetaminophen Extra Strength) meclizine 50 mg tablet (Antivert) 50 mg PO BID 08/27/24 12/31/24 History 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 sensor (Dexcom G7 #3 ea 09/13/24 12/11/24 Rx Sensor device) 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,groover operator,cont #1 ea 09/13/24 12/11/24 Rx (Dexcom G7 Motel Front 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 Clerk) rosuvastatin 5 mg tablet 5 mg PO DAILY #90 tabs 10/03/24 12/31/24 Rx carvedilol 12.5 mg tablet (Coreg) 12.5 mg PO Q12HR #60 tabs 10/06/24 12/31/24 Rx insulin glargine 100 unit/mL (3 18 unit (0.18 mL) subcut QPM #15 mL 11/15/24 12/31/24 Rx mL) subcutaneous pen (Lantus Solostar U-100 Insulin) amoxicillin 875 mg-potassium 1 tablet PO Q12H 2 weeks #28 tabs 12/15/24 12/31/24 Rx clavulanate 125 mg tablet sulfamethoxazole 800 1 tablet PO Q12H #30 tabs 12/20/24 12/31/24 Rx mg-trimethoprim 160 mg tablet (Bactrim DS) escitalopram oxalate 10 mg tablet 10 mg PO DAILY #90 tabs 01/13/25 Rx sacubitril 24 mg-valsartan 26 mg 1 tablet PO Q12HR #60 tabs 01/14/25 Rx tablet (Entresto) spironolactone 25 mg tablet 25 mg PO QAM #90 tabs 01/14/25 Rx metformin 500 mg tablet 500 mg PO BID #180 tabs 01/23/25 01/23/25 Rx Allergies Allergy/AdvReac Type Severity Reaction Status Date / Time No Known Allergies Allergy Verified 12/31/24 13:58 Exam Const: General: awake, acute distress mild, diaphoretic and ill appearing acutely Orientation/consciousness: oriented to person, oriented to place, oriented to time and No confusion HENMT: Head: normal to inspection, normocephalic and atraumatic Neck: Neck: supple and nontender Resp: Effort & Inspection: normal respiratory effort GI: Inspection: non-distended GI Palp: Yes Soft to palpation Neuro: Cognition (Neuro): normal cognition Speech: normal speech Extrem: Right upper extremity: normal to inspection Left upper extremity: normal to inspection Right lower extremity: ankle Details: abnormal to inspection, swelling ( 3+) Details: diffusely, abnormal ROM Details: with range as follows (ankle dorsiflexion -10 degrees, plantar flexion 40?, inversion 15?, eversion 15?) and other ( good stability all directions); no tenderness and no ecchymosis and foot Details: abnormal to inspection ( extension deformity of the 3rd and 4th toe) Details: other (0.8 x 0.8 cm ulcer plantar forefoot under the 4th metatarsal head surrounding callus. No surrounding erythema. No drainage.), abnormal ROM of toe ( hallux MTP dorsiflexion 40, plantar flexion 20?), vascular exam Details: abnormal capillary refill Location: of all toes; dorsalis pedis pulse absent and posterior tibial pulse absent, tendon exam Details: active flexion abnormal and active extension abnormal, motor-sensory exam Details: two point discrimination abnormal Location: in all toes and light-touch abnormal Location: in all toes and other (Hallux metatarsophalangeal motion 10? dorsiflexion/10? plantar flexion) Left lower extremity: lower leg Details: pitting edema Details: 4+, ankle Details: normal to inspection and abnormal ROM Details: with range as follows (ankle dorsiflexion -10 degrees, plantar flexion 40?, inversion 15?, eversion 15?); no tenderness and no swelling and foot Details: abnormal to inspection ( Erythema over the lateral border And plantar heel of the foot which improves with elevation), tenderness, abnormal ROM of toe, warmth, edema Location: of the dorsal foot ( 4+), vascular exam Details: abnormal capillary refill Location: of all toes; dorsalis pedis pulse absent and posterior tivial pulse absent, tendon exam active flexion abnormal of the great toe and active extension abnormal of the great toe, motor-sensory exam two point discrimination abnormal and light-touch abnormal in all toes and other (Plantar heel ulcer 2 x 4 cm with 2.3 cm depth. Tunneling at the 1 o'clock position to 2.3 cm. No purulence or foul odor. Mild serous drainage.); abnormal capillary refill and no crepitus Other: Dressing changed. Wound on the plantar aspect of the right 4th MTP joint with callus formation requiring debridement. 100% red/pink wound bed. No signs of active infection. Dressing changed. Wound on the calcaneus of the left heel probes to bone. Surrounding soft tissue swollen with minimal erythema. loose skin noted and debrided. Psych: Mental Status: mental status grossly normal Affect: normal affect Assessment and Plan Assessment and plan (1) Heel ulcer due to DM: Qualifiers: Diabetes mellitus type: type 2 Laterality: left Non-pressure ulcer stage: with necrosis of muscle Qualified Code(s): E11.621 - Type 2 diabetes mellitus with foot ulcer; L97.423 - Non-pressure chronic ulcer of left heel and midfoot with necrosis of muscle Code(s): E11.621 - Type 2 diabetes mellitus with foot ulcer; L97.409 - Non-pressure chronic ulcer of unspecified heel and midfoot with unspecified severity Status: Acute Assessment and Plan: 7 weeks, 3 days status post surgical debridement of the left plantar heel. wound on the plantar aspect of the left heel measures 2 x 4 x 2.3 cm today probing to bone. Surrounding callus debridement performed. No evidence of worsening infection. No purulence. No malodor. Continue daily dressing changes with assistance from home health. Patient may benefit from a total contact cast application for additional pressure offloading. Wound clinic nurses checking authorization. (2) Infected pressure ulcer: Qualifiers: Pressure injury stage: stage 4 Qualified Code(s): L89.94 - Pressure ulcer of unspecified site, stage 4; L08.9 - Local infection of the skin and subcutaneous tissue, unspecified Code(s): L89.90 - Pressure ulcer of unspecified site, unspecified stage; L08.9 - Local infection of the skin and subcutaneous tissue, unspecified Status: Acute (3) Diabetic foot infection: Code(s): E11.628 - Type 2 diabetes mellitus with other skin complications; L08.9 - Local infection of the skin and subcutaneous tissue, unspecified Status: Acute (4) Non-pressure chronic ulcer of other part of right foot with necrosis of muscle: Code(s): L97.513 - Non-pressure chronic ulcer of other part of right foot with necrosis of muscle Status: Acute Assessment and Plan: Wound on the plantar aspect of the right foot measures 0.8 x 0.8 x 0.1 cm. Daily dressing changes with silver gel and foam. Recommended pressure offloading and close diabetic control. Plan Awaiting evaluation and treatment for his heart failure before proceeding with further surgery for his feet.
--- NOTE | 2025-02-06 07:36 | PCWOUND ---
W[facility] NOTE Patient was in the ED yesterday for worsening left heel wound. Per ER notes, patient was emergently transferred to the [facility] ED for general surgery evaluation. Appointment on 02/14/25 was cancelled as patient should be followed by [facility] at this time. No future appointments made.
== END 2025-03-11 11:56 | disposition home or self-care (01) ==
LOC: ANHWOC 07:11
PROVIDERS: PCP Family Medicine; Visit Provider Nurse Practitioner Family
DX: Z48.00 Encounter for change or removal of nonsurgical wound dressing (principal); L89.94 Pressure ulcer of unspecified site, stage 4; L97.513 Non-pressure chronic ulcer of other part of right foot with necrosis of muscle; L97.423 Non-pressure chronic ulcer of left heel and midfoot with necrosis of muscle; E11.628 Type 2 diabetes mellitus with other skin complications; E11.65 Type 2 diabetes mellitus with hyperglycemia; Z79.4 Long term (current) use of insulin; E11.621 Type 2 diabetes mellitus with foot ulcer
CPT/HCPCS: 11042; 99213; 99214; G0463

== ENCOUNTER 2025-02-04 13:28 | Emergency (ER) | payer MEDICARE, SELFPAY ==
--- OUTSIDE RECORDS SUMMARY | 2009-05-01 03:30 | XMS_ITS | Continuity of Care Document ---
Author Organization [facility] Address [address] [place] [address] Phone Care Team Providers Care Preschool Teacher'S Assistant Name Role Phone Ben Cabello Unavailable Unavailable Procedures Procedure Date Office/outpatient Visit, Est Dilated Retinal Exam W Interpretation Ja Dilated Macular Or Fundus Exam Findings Communicat Communication Performed Eye Exam & Treatment Advance Directives Directive Yes / No Effective Date File Name No Information Encounters Encounter Description Practice Location Reason(s) For Visit Diagnoses Date Provider Providers Copied on Encounter Office/outpat ient Visit, Est [facility], [address], [place], [place], [id number], [place] tel:[phone] [facility] No Information 5-201 0 Dawitnasdesiree Ben. [address], [place], [address], [place]. tel:[phone] [facility], [address], [place], [place], [id number], [place] tel:[phone] [facility] No Information 6-200 8 Adamson OD Iain. [address], [place], [address], [place]. tel:[phone] Family History Family Member Type Diagnosis Age At Onset No Information Payers Payer name Insurance type Covered alliance party ID Authoriza tion(s) [place] [id number] Social History Type Description Quantity Date Captured [...]
[2025-02-04] VITALS (19 sets, daily range): BP systolic 107–164; BP diastolic 62–95; PULSE 95–111; RESP 11–26; TEMP 36.5; O2SAT 98–100
--- NOTE | ~2025-02-04 | XR_ITS ---
EXAMINATION: XR chest 1V, 02/04/2025 15:56 CDT HISTORY: sepsis? COMPARISON: No comparisons available. Technique: Single view. Findings: The lungs are clear, no effusion. No pneumothorax. Heart is normal size. Mediastinal and hilar contours are within normal limits. Poststernotomy Impression: No acute cardiopulmonary abnormality. Reviewed, dictated and finalized at location P. Impression: No acute cardiopulmonary abnormality.
--- NOTE | ~2025-02-04 | XR_ITS ---
EXAMINATION: XR foot LT min 3V, 02/04/2025 15:56 CDT HISTORY: wounds COMPARISON: No comparisons available. Findings: There are destructive changes noted of the calcaneus consistent with osteomyelitis. No significant degenerative changes. Soft tissue swelling with soft tissue defect noted around the calcaneus. Impression: Osteomyelitis Reviewed, dictated and finalized at location P. Impression: Osteomyelitis
--- NOTE | 2025-02-04 15:46 | ECG_ITS ---
Test Date: 2025-02-04 16:46:07 Measurements Intervals [place] Rate: 101 P: 87 VT: 139 QRS: -48 QRSD: 121 T: 111 QT: 331 QTc: 430 Interpretive Statements SINUS TACHYCARDIA LEFT AXIS DEVIATION INCOMPLETE LEFT BUNDLE BRANCH BLOCK BORDERLINE R WAVE PROGRESSION, ANTERIOR LEADS CONSIDER INFERIOR INFARCT, AGE INDETERMINATE ST-T WAVE ABNORMALITY IN HIGH LATERAL LEADS- CONSIDER ISCHEMIA BASELINE ARTIFACT- I, II, III, AVR, AVL, AVF ABNORMAL ECG Compared to ECG 12/10/2024 19:15:48 HEART RATE HAS INCREASED INCOMPLETE LEFT BUNDLE BRANCH BLOCK NOW PRESENT POSSIBLE ISCHEMIA NOW PRESENT Electronically Signed On 02-04-2025 16:49:11 CDT by Leon Roldan D.O.
[2025-02-04 16:34] LABS: Hematocrit 33.0 % (42.0-52.0); Hemoglobin 10.6 g/dL (14.0-18.0); Immature Granulocyte Percent A 0.3 % (0-0.5); Lymphocytes Absolute Auto 0.80 K/mm3 (0.9-3.2); Mean Corpuscular HGB Conc 32.1 g/dl (32-36); Mean Corpuscular Hemoglobin 29.0 pg (26-34); Mean Corpuscular Volume 90.4 fl (80-100); Nucleated Red Blood Cells Absolute Auto 0.000 K/mm3 (0.0-0.012); Nucleated Red Blood Cells Perc 0.0 % (0.0-0.2); Platelet Count Result 358 k/mm3 (150-375); Red Blood Count 3.65 M/mm3 (4.6-6.20); White Blood Count 12.2 K/mm3 (4.5-10.0)
[2025-02-04] MEDS: LACTATED RINGERS 1,000 ML 999 ML IV CONT (16:41)
[2025-02-04 16:48] LABS: INR 1.1; Prothrombin Time 14.5 Seconds (11.1-14.7)
[2025-02-04 16:49] LABS: Partial Thromboplastin Time 28.7 Seconds (22.3-36.8)
[2025-02-04 16:50] LABS: Alanine Aminotransferase 13 U/L (6-50); Albumin Level 3.7 g/dL (3.5-5.1); Alkaline Phosphatase 90 U/L (38-126); Anion Gap 8 mmol/L (4-12); Aspartate Amino Transferase 22 U/L (17-59); Bilirubin,Total 1.0 mg/dL (0.2-1.3); Blood Urea Nitrogen 20 mg/dL (9-20); Calcium 9.1 mg/dL (8.4-10.2); Carbon Dioxide 27 mmol/L (22-30); Chloride 97 mmol/L (98-107); Estimated CRCL calculation 83 ml/min; Estimated Glomerular Filt Rate > 60; Glucose 144 mg/dL (65-110); Potassium 4.4 mmol/L (3.4-5.0); Sodium 132 mmol/L (137-145); Total Protein 7.9 g/dL (6.3-8.2)
[2025-02-04 16:57] LABS: Add Urine Microscopic? YES; Appearance Urine Clear (Clear); Glucose Urine UA 3+ mg/dL (Negative); Leukocyte Esterase Ur Negative LEU/UL (Negative); Nitrate Urine Negative (Negative); Specific Grav Ur 1.034 (1.001-1.035)
[2025-02-04 17:00] LABS: CRP 14.4 mg/dL (<1.0)
--- NOTE | 2025-02-04 17:09 | ED.GENADULT ---
HPI - General Adult General Chief complaint: Wound/Laceration Stated complaint: L foot infection Time Seen by Provider: 02/04/25 14:53 History of Present Illness HPI narrative: This is a 69-year-old male with a chronic left heel wound presenting with concerns about infection. Over the weekend the patient developed increased pain and redness to his left foot. He is no longer able to ambulate on it. He has not noticed any purulent discharge. No fevers or body aches. No nausea vomiting or diarrhea. Related Data Home Medications ?Medication ?Instructions ?Recorded ?Confirmed ?Last Taken ?Type acetaminophen 500 mg tablet 1,000 mg PO Q6H PRN pain 08/27/24 12/31/24 10/03/24 History (Acetaminophen Extra Strength) meclizine 50 mg tablet (Antivert) 50 mg PO BID 08/27/24 12/31/24 12/10/24 History Allergies Allergy/AdvReac Type Severity Reaction Status Date / Time No Known Allergies Allergy Verified 02/04/25 14:39 [facility] Past Medical History Medical History Type 2 diabetes mellitus with foot ulcer Calf pain Non-pressure chronic ulcer of other part of right foot with necrosis of muscle Heel ulcer due to DM History of colon cancer 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 GERD (gastroesophageal reflux disease) Carpal tunnel syndrome Surgical History Surgical History History of incision and drainage Complex I&D Right foot infected diabetic foot ulcer measuring approximately 5x4cm. on 12/19/21 Status post debridement (12/2020) Right foot abscess, osteomyelitis. History of coronary artery stent placement History of cardiac catheterization History of colonoscopy with polypectomy History of repair of hiatal hernia (2001) History of coronary artery bypass graft History of carpal tunnel release History of arthroscopy of right knee History of hernia repair (2019) Finger amputee Right 2nd finger secondary to crush injury. History of right hemicolectomy with ileocolic anastomsis in 2019 Family History Family History Sibling Family history of malignant neoplasm Father Family history of chronic obstructive pulmonary disease Hypertension Heart disease Mother Hypertension Cancer Sibling Cancer Sibling Cancer Sibling Cancer Social History Social History Social History: The patient is and lives with his and 1 son in [place]. They have 4 children. 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 No alcohol or illicit substance abuse. Surrogate medical decision maker: Tash Orantes, spouse. Code status: Full code. Years smoked: 10 Smoking status: Former smoker Tobacco type: cigarettes Alcohol intake: never Substance use: never Substance use type: does not use Do You Feel Safe in your Home?: Yes Lack of Transportation: No Lack of Food: Never True Current Housing: I Have Housing Concerned About Future Housing: No Difficulty Paying Gas/Electric Bills: No Difficulty Paying for Meds: No Currently Unemployed: No Education: High School Diploma/GED Difficulty w/ Childcare or Family Care: No Living arrangements: with family Occupation/Education: retired Gender identity (if verbalized by the patient): Male Sexual Orientation (if Verbalized by the Patient): Straight or Heterosexual Spiritual care concerns: No Exam Narrative: APPEARANCE: No apparent distress. Head: atraumatic. EYES: EOMI, NOSE: Atraumatic NECK: Trachea midline RESPIRATORY: No increased rate of breathing CARDIOVASCULAR: RRR, ABDOMINAL: Non-distended MUSCULOSKELETAl: No obvious deformities NEURO: Alert. Moving 4/4 extremities SKIN:: Chronic appearing wound to the base of the left heel. No purulent discharge from the wound. There is surrounding warmth and erythema and swelling to the foot. PSYCHIATRIC: Normal affect Course Vital Signs Vital signs: Vital Signs Temperature 97.7 F 02/04/25 13:29 Pulse Rate 108 H 02/04/25 13:29 Respiratory Rate 16 02/04/25 13:29 Blood Pressure 107/62 02/04/25 13:29 Pulse Oximetry 99 02/04/25 13:29 Oxygen Delivery Room Air 02/04/25 13:29 Temperature 97.7 F 02/04/25 13:29 Pulse Rate 102 H 02/04/25 15:01 Respiratory Rate 13 02/04/25 15:01 Blood Pressure 163/83 H 02/04/25 15:01 Pulse Oximetry 99 02/04/25 15:01 Oxygen Delivery Room Air 02/04/25 14:35 Medical Decision Making MDM Narrative Medical decision making narrative: -Course: 69-year-old male with a chronic left heel ulcer presenting with concerns about infection. The patient's foot has become red and swollen and tender to the touch. Patient is tachycardic on arrival. Patient meets sepsis criteria based on heart rate and white blood cell count. Blood cultures obtained. Patient placed on IV antibiotics diabetic foot infection. Given 1 L LR and started on maintenance. Patient is not hypotensive in lactic is not elevated so no need for 30 cc/kilogram bolus. Will be admitted the hospital for further evaluation. Patient sees Dr. Calvo who is not computer education professor. Case discussed w/ [facility] who will consult on the case. -DDX includes but is not limited to: Diabetic foot infection, sepsis, Independent interpretation of studies labs imaging reviewed X-ray significant for osteomyelitis left heel Vital Signs Vital Signs: Vital Signs Temperature 97.7 F 02/04/25 13:29 Pulse Rate 108 H 02/04/25 13:29 Respiratory Rate 16 02/04/25 13:29 Blood Pressure 107/62 02/04/25 13:29 Pulse Oximetry 99 02/04/25 13:29 Oxygen Delivery Room Air 02/04/25 13:29 Temperature 97.7 F 02/04/25 13:29 Pulse Rate 102 H 02/04/25 15:01 Respiratory Rate 13 02/04/25 15:01 Blood Pressure 163/83 H 02/04/25 15:01 Pulse Oximetry 99 02/04/25 15:01 Oxygen Delivery Room Air 02/04/25 14:35 Lab Data 02/04/25 16:26 02/04/25 16:26 Labs: Lab Results 02/04/25 02/04/25 Range/Units 16:26 16:39 WBC 12.2 H (4.5-10.0) K/mm3 RBC 3.65 L (4.6-6.20) M/mm3 Hgb 10.6 L (14.0-18.0) g/dL Hct 33.0 L (42.0-52.0) % MCV 90.4 (80-100) fl MCH 29.0 (26-34) pg MCHC 32.1 (32-36) g/dl RDW 12.8 (11.5-14.5) % Plt Count 358 (150-375) k/mm3 MPV 8.8 (7.4-10.4) fl Immature Gran % (Auto) 0.3 (0-0.5) % Neut % (Auto) 83.8 H (45.5-73.1) % Lymph % (Auto) 6.6 L (18.3-44.2) % [place] % (Auto) 8.0 (2.6-8.5) % Eos % (Auto) 1.1 (0-4.4) % Baso % (Auto) 0.2 (0.2-1.2) % Lymph # (Auto) 0.80 L (0.9-3.2) K/mm3 [place] # (Auto) 1.0 H (0.1-0.6) K/mm3 Eos # (Auto) 0.1 (0-0.3) K/mm3 Baso # (Auto) 0.0 (0.0-0.1) K/mm3 Abs Immat Gran (auto) 0.04 H (0.00-0.031) K/mm3 Absolute Neuts (auto) 10.2 H (1.3-6.7) K/mm3 Absolute Nucleated RBC 0.000 (0.0-0.012) K/mm3 Nucleated RBC % 0.0 (0.0-0.2) % PT 14.5 (11.1-14.7) Seconds INR 1.1 APTT 28.7 (22.3-36.8) Seconds Sodium 132 L (137-145) mmol/L Potassium 4.4 (3.4-5.0) mmol/L Chloride 97 L (98-107) mmol/L Carbon Dioxide 27 (22-30) mmol/L Anion Gap 8 (4-12) mmol/L BUN 20 (9-20) mg/dL Creatinine 0.69 L (0.7-1.3) mg/dL Estim Creat Clear Calc 83 ml/min Estimated GFR > 60 (59 - ) Glucose 144 H (65-110) mg/dL Lactic Acid 1.7 (0.7-2.0) mmol/L Calcium 9.1 (8.4-10.2) mg/dL Total Bilirubin 1.0 (0.2-1.3) mg/dL AST 22 (17-59) U/L ALT 13 (6-50) U/L Alkaline Phosphatase 90 (38-126) U/L C-Reactive Protein 14.4 H (<1.0) mg/dL Total Protein 7.9 (6.3-8.2) g/dL Albumin 3.7 (3.5-5.1) g/dL Urine Color Yellow (Yellow) Urine Appearance Clear (Clear) Urine pH 5.5 (5.0-9.0) Ur Specific [place] 1.034 (1.001-1.035) Urine Protein 1+ H (Negative) mg/dL Urine Glucose (UA) 3+ H (Negative) mg/dL Urine Ketones Trace H (Negative) mg/dL Ur Blood (Man) 1+ H (Negative) Urine Nitrate Negative (Negative) Urine Bilirubin Negative (Negative) Urine Urobilinogen 0.2 (<2.0) mg/dL Leukocyte Esterase Rfl Negative (Negative) TANVI/UL Urine RBC 3-5 H (0-2) /hpf Urine WBC 0-5 (0-3) /hpf Ur Squamous Epith Cells None seen (Few) /hpf Urine Bacteria None seen /hpf Urine Casts 3-5 Discharge Plan Discharge Clinical Impression: Diabetic foot infection, Sepsis Patient Disposition: Still a Patient Condition: Stable Patient Language: [place] Prescriptions: No Action metformin 500 mg tablet 500 mg PO BID Qty: 180 1RF meclizine [Antivert] 50 mg tablet 50 mg PO BID acetaminophen [Acetaminophen Extra Strength] 500 mg tablet 1,000 mg PO Q6H PRN (Reason: pain) carvedilol [Coreg] 12.5 mg Tablet 12.5 mg PO Q12HR Qty: 60 0RF amoxicillin-pot clavulanate 875-125 mg tablet 1 tablet PO Q12H 14 Days Qty: 28 0RF Jardiance 10 mg tablet 10 mg PO DAILY 30 Days Qty: 30 6RF (DME) Dexcom G7 Sensor Device See Rx Instructions .Route Qty: 3 5RF Rx Instructions: Change sensor every 10 days (DME) Dexcom G7 Patient Services Assistant Misc See Rx Instructions .Route Qty: 1 0RF Rx Instructions: As directed rosuvastatin 5 mg tablet 5 mg PO DAILY Qty: 90 1RF insulin glargine [Lantus Solostar U-100 Insulin] 100 unit/mL (3 mL) insulin pen 18 unit subcut QPM Qty: 15 3RF sulfamethoxazole-trimethoprim [Bactrim DS] 800-160 mg tablet 1 tablet PO Q12H Qty: 30 1RF escitalopram oxalate 10 mg tablet 10 mg PO DAILY Qty: 90 1RF sacubitril-valsartan [Entresto] 24-26 mg tablet 1 tablet PO Q12HR Qty: 60 0RF spironolactone 25 mg tablet 25 mg PO QAM Qty: 90 0RF Follow-up/Referrals: Ashwin Lawler MD [Primary Care Provider, Family Practice]
[2025-02-04] MEDS: CEFEPIME 2 GM in SODIUM CHLORIDE 0.9% IV 50 ML 100 ML IVPB (17:24)
[2025-02-04] MEDS: metroNIDAZOLE 500 MG/ISO 100ML 500 MG/100 ML BAG 100 MG IVPB (17:27)
--- OUTSIDE RECORDS SUMMARY | 2025-02-04 18:59 | XMS_ITS | Encounter Summary ---
Author Organization [employer] Address [address] [place] [address] Care Team Providers Care Database Management System Specialist Name Role Phone Unavailable Primary Care Provider Unavailabl e Encounter Details Date Type Department Care Team (Late st Contact Info) Description 09/10/2006 Outpatient Historical [facility] [address] 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
--- OUTSIDE RECORDS SUMMARY | 2025-02-04 18:59 | XMS_ITS | Clinical Summary ---
Author Organization [facility] Address [address] [place] [address] Care Team Providers Care Editor Department Name Role Phone Ashwin Lawler MD Primary Care Provider [phone] Allergies No known active allergies Medications metFORMIN (GLUCOPHAGE) 500 mg tablet take 1 tablet (500MG) by oral route 2 times every day with morning and evening meals 0 12/30/19 12 Active aspirin 81 mg tablet take 1 Tablet (81MG) by oral route every day 0 12/30/19 12 Active glimepiride (AMARYL) 4 mg tablet take 1 tablet (4MG) by oral route every day 0 12/30/19 12 Active meclizine (ANTIVERT) 25 mg tablet take 1 tablet by oral route 3 times every day as needed 0 0 03/18/20 13 Active nitroglycerin (NITROSTAT) 0.[address] 1 tablet by sublingual route at the 1st sign of attack; may repeat every 5 min until relief; if pain persists after 3 tablets in 15 min, prompt medical attention is recommended 25 0 08/19/19 16 Active isosorbide mononitrate ER (IMDUR) 30 mg 24 hr tablet take 1 tablet by oral route every day in the morning 30 3 08/20/19 16 Active sulfamethoxazo le-trimethopri m (BACTRIM) 400-80 mg per tablet Take 1 tablet by mouth 2 (two) times a day Active spironolactone (ALDACTONE) 25 mg tablet Take 1 tablet (25 mg total) by mouth daily 90 tablet 3 02/09/20 23 Active Additional Information Patient not taking.Reported on 01/03/2025 rosuvastatin (CRESTOR) 5 mg tablet Take 1 tablet (5 mg total) by mouth daily 03/07/20 Active empagliflozin (JARDIANCE) 10 mg tablet Take 1 tablet (10 mg total) by mouth daily 06/19/19 25 Active clopidogreL (PLAVIX) 75 mg tablet TAKE ONE TABLET BY MOUTH DAILY 30 tablet 11 12/24/19 25 Active sacubitriL-marcia sartan (ENTRESTO) 24-26 mg tabletIndicati ons:chronic heart failure Take 1 tablet by mouth 2 (two) times a day Active carvediloL (COREG) 6.25 mg tablet Take 1 tablet twice daily 60 tablet 01/25/20 25 Active sacubitriL-marcia sartan (ENTRESTO) 49-51 mg tabletIndicati ons:chronic heart failure Take 1 tablet by mouth 2 (two) times a day 60 tablet 3 12/08/19 23 025 Discontinued(A lternate therapy) carvediloL (COREG) 25 mg tablet Take 1 tablet (25 mg total) by mouth 2 (two) times a day with meals 180 tablet 3 02/09/20 23 025 Discontinued carvediloL (COREG) 12.5 mg tablet Take 1 tablet twice daily 180 tablet 3 01/11/20 25 025 Discontinued Active Problems Problem Noted Date Diagnosed Date Chronic systolic heart failure 01/21/2025 Status post insertion of drug eluting coronary a rtery stent 04/05/2023 Coronary artery disease invo lving [place] coronary artery of [place] heart without angina pectoris 08/24/2022 Cardiomyopathy, ischemic 08/24/2022 Encounters Date Type Department Care Team Description 01/21/2025 Telephone [facility] Cardiology [address] [facility] 8th [place] [address] [place] [address] Lebron Guerra MD PhD 01/14/2025 Telephone [facility] Cardiology [address] [facility] 8th [place] [address] [place] [phone] Lebron Guerra MD PhD 01/09/2025 Telephone [facility] Cardiology [address] [address] [place] [address] Patric Thomas MD Hypotension; Med Refill; Med Management 01/03/2025 2:30 PM CDT Office Visit [facility] Cardiology [address] [facility] [address] [place] [address] Lebron Guerra MD PhD Cardiomyopathy, ischemic (Primary Dx) 01/03/2025 Results Follow-Up [facility] Cardiology [address] [facility] [address] [place] [address] Lebron Guerra MD PhD ECG 12 lead 12/24/2024 Orders Only [facility] Cardiology [address] [place] [phone] ProviderTanika MD 12/17/2024 Telephone [facility] Cardiology [address] [facility] 8th [place] [address] [place] [address] Emy Bowers 12/09/2024 10:00 AM CDT Office Visit [facility] Cardiology [address] [facility] [address] [place] [phone] Becki Sweet NP Cardiomyopathy, ischemic; Coronary artery disease involving [place] coronary artery of [place] heart without angina pectoris; Hospital discharge follow-up from Last 3 Months Surgical History Surgery [...] on file Legal Sex Male 1:57 AM COOLER MAN Gender Identity Not on file Sexual Orientation Not on file Obstetrics History Last Filed Vital Signs Vital Sign Reading Time Taken Comments Blood Pressure 82/46 01/03/2025 2:53 PM CDT Pulse 75 01/03/2025 2:53 PM CDT Temperature 36.7 C (98.1 F) 03/10/2023 7:38 AM COOLER MAN Respiratory Rate 16 12/09/2024 10:00 AM CDT Oxygen Saturation 99% 01/03/2025 2:53 PM CDT Inhaled Oxygen Concentration - - Weight 77.1 kg (170 lb) 01/03/2025 2:53 PM CDT Height 182.9 cm (6') 12/09/2024 10:00 AM CDT Body Mass Index 23.06 12/09/2024 10:00 AM CDT Plan of Treatment Upcoming Encounters Date Type Department Care Team (Latest Contact Info) Description 05/05/2025 8:30 AM COOLER MAN Hospital Encounter [facility] Electrophysiology Lab [address] [place] [address] Lebron Guerra MD PhD [address] [employer] [address] [address] Chronic systolic heart failure (HCC) 05/05/2025 8:30 AM COOLER MAN - 05/05/2025 11:17 AM COOLER MAN Surgery [facility] Electrophysiology Lab 1 [place] [address] Lebron Guerra MD PhD [address] [employer] [address] [address] INSERT/REPLACE IMPLANTABLE CARDIOVERTER-DEFIB RILLATOR (ICD) dual chamber 90[address] Health Maintenance Due Date Last Done Comments Colon Cancer Screening-Colonoscopy 1954 Depression Screening 1954 Hepatitis C Screening 1954 Hepatitis B Screening 1972 Pneumococcal vaccine 65+ (1 of 2 - PCV) 1973 Zoster Vaccine (1 of 2) 2004 Abdominal Aortic Aneurysm (AAA) Screen 2019 Well Visit 65+ 2019 Fall Risk Assessment 03/10/2024 03/10/2023 Covid-19 Vaccine ( season) 2024, 11/21/2020 Influenza Vaccine (#1) 2024 DTaP/Tdap/Td Vaccine (3 - Td or Tdap) 11/30/2030, 03/24/2020 Goals Goal Patient Goal Type Associated Problems Recent Progress Patient-Stated? Author Autogenera jadiel Goal Care Plan Autogenerated Problem No Jovanni Wilson RN Medical Devices Implanted Type Area Status Controller Device Identifier Shelf Expiration Date Model / Serial / Lot [place] [employer]smar Stent Drug Eluting S Megatron Us Mr [id number] - S0 - [id number] Implanted:Qty : 1 on 03/10/2023 by Sal Erazo MD at [facility] Stent Left: Circumflex Coronary Artery [place] [employer]ar 10/30/2024 [id number] / 0 / [id number] [employer] Vimessa Angio-Seal Vip 6fr Closere Device [id number] - S0 - [id number] Implanted:Qty : 1 on 03/10/2023 by Sal Erazo MD at [facility] Vascular Closure Device Right: Femoral [employer] Osmar 09/22/2023 [id number] / 0 / [id number] Procedures Procedure Name Priority Date/Time Associated Diagnosis Comments ECG 12-LEAD Routine 01/03/2025 2:57 PM CDT Cardiomyopathy, ischemic POCT LIPID PANEL Routine 12/09/2024 9:59 AM CDT Coronary artery disease involving [place] coronary artery of [place] heart without angina pectoris CT CHEST ABDOMEN PELVIS WO CONTRAST ED 12/10/2018 10:11 PM CDT from Last 3 Months or Most Recently Relevant to Health Maintenance Results * ECG 12 lead (01/03/2025 2:57 PM CDT) Lebron Guerra MD PhD ECG ORDERABLES Javier jadiel Result - Final * POCT lipid panel (12/09/2024 9:59 AM CDT) Cholesterol, POC 107 <200 MG/DL HDL, POC 40 >=40 mg/dL Triglycerides, POC 49 <=149 mg/dL LDL Cholesterol POC 57 <=129 mg/dL Chol/HDL Ratio, POC 1.4 NONE Non-HDL Cholesterol, POC 67 NONE mg/dL Cholesterol Total, POC 107 30 - 199 mg/dL Capillary blood 12/09/2024 9 :59 AM CDT Becki Sweet NP POINT OF CARE TEST ORDERA BLES Final Result * CT Chest Abdomen Pelvis WO Contrast (12/10/2018 10:11 PM CDT) Anatomical Region Laterality Modality Body N/A Computed Tomogra phy 12/10/2018 10:2 8 PM CDT Addenda Addendum by David Thibodeaux MD on 04/08/2019 3:49 PM COOLER MAN Follow up thyroid FNA completed 02-20-19 (scanned [...] or Most Recently Relevant to Health Maintenance Additional Health Concerns Active Problems Noted Date Diagnosed Date Autogenerated Problem 01/21/2025 Insurance [employer]IC[employer] [place] [id number] [employer] MEDIC[employer] PPO Advance Directives For more information, please contact: [phone] * Full Code (Latest Code Status on File) Date Activated Date Inactivated Comments 03/10/2023 10:16 AM 03/10/2023 5:27 PM Care Teams Editor Department Relationship Specialty Start Date End Date Ashwin Lawler MD [address] [place], [place] [phone] PCP - General Family Medicine 08/21/22
--- OUTSIDE RECORDS SUMMARY | 2025-02-04 18:59 | XMS_ITS | Encounter Summary ---
Author Organization [facility] Address [address] [place] [address] Care Team Providers Care Vehicle Leasing And Rental Manager Name Role Phone Unavailable Primary Care Provider Unavailabl e Encounter Details Date Type Department Care Team (Late st Contact Info) Description 09/07/2006 Outpatient Historical [facility] Cardiovas and Thor Surg at [facility] Heart Hosp [address] [facility] [address] [place] [address] Lily Dalton PA [address] [facility] [address] [place] [address] Social History Tobacco Use Types Packs/Day Years Used Date Smoking Tobacco: Never Assessed Sex and Gender Information Value Date Recorded Sex Assigned at Not on file 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
--- OUTSIDE RECORDS SUMMARY | 2025-02-04 18:59 | XMS_ITS | Clinical Summary ---
Author Organization [facility] Address [facility] [place] [address] Care Team Providers Care Clinical Supervisor Name Role Phone Unavailable Primary Care [...] Vaccines (1 of 2) 2004 COVID-19 Vaccine (1 - 2023-2 5 season) 2024 Influenza Adult (#1) 2025 RSV Immunization or 60+ Years (1 - 1-dose 75+ series) 2029 Hepatitis A Vaccines Aged Out No long er eligible based on patient's age to complete this topic Meningococcal B Vaccine Aged Out No l onger eligible based on patient's age to complete this topic Meningococcal Vaccine Aged Out No sweta paulina eligible based on patient's age to complete this topic RSV Immunizations Under 20 Months Aged Out No longer eligible based on patient's age to complete this topic
--- OUTSIDE RECORDS SUMMARY | 2025-02-04 18:59 | XMS_ITS | Encounter Summary ---
Author Organization [employer] [facility] Address [address] [place] [address] Care Team Providers Care Telecommunications Network Planner Name Role Phone Unavailable Primary Care Provider Unavailabl e Encounter Details Date Type Department Care Team (Latest Contact Info) Description 10/12/2006 Outpatient Historical 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
--- OUTSIDE RECORDS SUMMARY | 2025-02-04 18:59 | XMS_ITS | Encounter Summary ---
Author Organization [facility] Address [address] [place] [address] Care Team Providers Care Aerial Sprayer Name Role Phone Unavailable Primary Care Provider Unavailabl e Encounter Details Date Type Department Care Team (Late st Contact Info) Description 09/07/2006 Outpatient Historical [facility] Cardiovas and Thor Surg at [facility] Heart Hosp [address] [facility] [place] [address] Elena Navarro MD [address] [facility] 3[facility] [address] [place] [address] Social History Tobacco Use Types Packs/Day Years Used Date Smoking Tobacco: Never Assessed Sex and Gender Information Value Date Recorded Sex Assigned at Not on file 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
--- OUTSIDE RECORDS SUMMARY | 2025-02-04 18:59 | XMS_ITS | Clinical Summary ---
Author Organization [facility] [employer] Address [address] [place] [address] Care Team Providers Care Wagon Drill Operator Name Role Phone Ashwin Lawler MD Primary Care Provider [phone] Source Comments [facility] [employer],non-owned Affiliates and Associated Physician Practices is amultiple site organization consisting of ambulatory clinics and hospital sitesin [place], [place], [place] and [place]. This disclosure is being madepursuant to the Care Everywhere program and may not contain all information available regarding this patient. Last updated 18.[facility] [employer] Allergies No known active allergies Medications * [...] place to sleep or slept in a residential (including now)? 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
--- OUTSIDE RECORDS SUMMARY | 2025-02-04 18:59 | XMS_ITS | Encounter Summary ---
Author Organization [facility] Address [address] [place] [address] Care Team Providers Care Instructional Designer Name Role Phone Unavailable Primary Care Provider Unavailabl e Encounter Details Date Type Department Care Team (Late st Contact Info) Description 10/12/2006 Outpatient Historical [facility] Cardiovas and Thor Surg at [facility] Heart Hosp [address] [facility] [place] [address] Elena Navarro MD [address] [facility] [address] [place] [address] Social History Tobacco Use Types Packs/Day Years Used Date Smoking Tobacco: Never Assessed Sex and Gender Information Value Date Recorded Sex Assigned at Not on file Legal 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
--- OUTSIDE RECORDS SUMMARY | 2025-02-04 18:59 | XMS_ITS | Encounter Summary ---
Author Organization [facility] Address [address] [place] [address] Care Team Providers Care Bill Clerk Name Role Phone Ashwin Lawler MD Primary Care Provider [phone] Encounter Details Date Type Department Care Team (Late st Contact Info) Description 10/04/2024 Orders Only [facility] [address] [place] [address] Scanning, Provider Social History Tobacco Use Types Packs/Day Years [...] on file Legal Sex Male 1:57 AM SHIRT TURNER Gender Identity Not on file Sexual Orientation Not on file documented as of this encounter Plan of Treatment Upcoming Encounters Date Type Department Care Team (Latest Contact Info) Description 05/05/2025 8:30 AM SHIRT TURNER Hospital Encounter [facility] Electrophysiology Lab 1 [place] [address] Lebron Guerra MD PhD [address] [address] Chronic systolic heart failure (HCC) 05/05/2025 8:30 AM SHIRT TURNER - 05/05/2025 11:17 AM SHIRT TURNER Surgery [facility] Electrophysiology Lab [address] [place] [address] Lebron Guerra MD PhD [address] [address] INSERT/REPLACE IMPLANTABLE CARDIOVERTER-DEFIB RILLATOR (ICD) dual chamber [address] documented as of this encounter Procedures Procedure Name Priority Date/Time Associated Diagnosis Comments SCAN - RADIOLOGY/IMAGING 10/04/2024 CARDIOLOGY DOCUMENT SCAN 10/04/2024 documented in this encounter Results * SCAN - RADIOLOGY/IMAGING (10/04/2024) Anatomical Region Laterality Modality Other us Provider Scanning Edited Result - Final * Cardiology Document Scan (10/04/2024) Anatomical Region Laterality Modality Other us Provider Scanning CV CARDIAC SERVICES PROCEDURES Final Result documented in this encounter Visit Diagnoses Not on filedocumented in this encounter Care Teams Bill Clerk Relationship Specialty Start Date End Date Ashwin Lawler MD [address] [place] [address] PCP - General Family Medicine 08/21/22 documented as of this encounter
--- OUTSIDE RECORDS SUMMARY | 2025-02-04 18:59 | XMS_ITS | Clinical Summary ---
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
--- OUTSIDE RECORDS SUMMARY | 2025-02-04 19:00 | XMS_ITS | Encounter Summary ---
Author Organization [employer] Address [address] [place] [address] Care Team Providers Care Personnel Training Officer Name Role Phone Unavailable Primary Care Provider Unavailabl e Encounter Details Date Type Department Care Team (Late st Contact Info) Description 06/06/2005 Outpatient Historical [facility] Support Serv. (Adt Cardiology[facility]) [address] [place] [address] Chase Martin MD NO ADDRESS ON FILE Social History Tobacco Use Types Packs/Day Years Used Date Smoking Tobacco: Never Assessed Sex and Gender Information Value Date Recorded Sex Assigned at Not on file Legal Sex Male 4:42 AM KETTLE HAND Gender Identity Not on file Sexual Orientation Not on file documented as of this encounter Plan of Treatment Not on file documented as of this encounter Visit Diagnoses Not on filedocumented in this encounter
--- OUTSIDE RECORDS SUMMARY | 2025-02-04 19:00 | XMS_ITS | Clinical Summary ---
Author Organization [facility] Address [address] [place] [address] Phone Care Team Providers Care Clinical Neuropsychologist Name Role Phone Unavailable Primary Care Provider [...]
--- OUTSIDE RECORDS SUMMARY | 2025-02-04 19:00 | XMS_ITS | Encounter Summary ---
Author Organization [facility] Address [address] [place] [address] Care Team Providers Care City Planning Teacher Name Role Phone Unavailable Primary Care Provider Unavailabl e Encounter Details Date Type Department Care Team (Latest Contact Info) Description 06/06/2005 Inpatient Historical HIS PATIENT IN A BED Patric Thomas MD [address] [address] [facility] ([facility]) (Primary Dx) Social History Tobacco Use Types Packs/Day Years Used Date Smoking Tobacco: Never Assessed Sex and Gender Information Value Date Recorded Sex Assigned at Not on file Legal Sex Male 4:42 AM MEDIA AID Gender Identity Not on file Sexual Orientation Not on file documented as of this encounter Plan of Treatment Not on file documented as of this encounter Procedures Procedure Name Priority Date/Time Associated Diagnosis Comments POC GLUCOSE Routine 06/09/2005 6:58 AM MEDIA AID POC GLUCOSE Routine 06/08/2005 10:11 PM MEDIA AID POC GLUCOSE Routine 06/08/2005 4:29 PM MEDIA AID POC GLUCOSE Routine 06/08/2005 11:22 AM MEDIA AID POC GLUCOSE Routine 06/08/2005 6:54 AM MEDIA AID CBC WITH DIFFERENTIAL Routine 06/08/2005 5:05 AM MEDIA AID CBC WITH DIFFERENTIAL Routine 06/08/2005 5:05 AM MEDIA AID MAGNESIUM LEVEL Routine 06/08/2005 5:05 AM MEDIA AID BASIC METABOLIC PANEL Routine 06/08/2005 5:05 AM MEDIA AID POC GLUCOSE Routine 06/07/2005 9:14 PM MEDIA AID CBC WITH DIFFERENTIAL Routine 06/07/2005 5:12 PM MEDIA AID CBC WITH DIFFERENTIAL Routine 06/07/2005 5:12 PM MEDIA AID POC GLUCOSE Routine 06/07/2005 4:33 PM MEDIA AID POC GLUCOSE Routine 06/07/2005 11:44 AM MEDIA AID CBC WITH DIFFERENTIAL Routine 06/07/2005 5:36 AM MEDIA AID CBC WITH DIFFERENTIAL Routine 06/07/2005 5:36 AM MEDIA AID BASIC METABOLIC PANEL Routine 06/07/2005 5:36 AM MEDIA AID POC GLUCOSE Routine 06/07/2005 5:31 AM MEDIA AID CK TOTAL, RELATIVE INDEX Routine 06/07/2005 4:10 AM MEDIA AID CKMB W/REFLEX CK Routine 06/07/2005 4:10 AM MEDIA AID TROPONIN (W/REFLEX CKMB/CK) Routine 06/07/2005 4:10 AM MEDIA AID MAGNESIUM LEVEL Routine 06/07/2005 4:10 AM MEDIA AID POC GLUCOSE Routine 06/07/2005 12:40 AM MEDIA AID CK TOTAL, RELATIVE INDEX Routine 06/06/2005 11:30 PM MEDIA AID CKMB W/REFLEX CK Routine 06/06/2005 11:3 0 PM MEDIA AID CBC WITH DIFFERENTIAL Routine 06/06/2005 11:30 PM MEDIA AID CBC WITH DIFFERENTIAL Routine 06/06/2005 11:30 PM MEDIA AID MAGNESIUM LEVEL Routine 06/06/2005 11:30 PM MEDIA AID LIPID PANEL Routine 06/06/2005 11:30 PM MEDIA AID COMPREHENSIVE METABOLIC PANEL Routine 06/06/2005 11:30 PM MEDIA AID POC GLUCOSE Routine 06/06/2005 8:43 PM MEDIA AID documented in this encounter Results * (ABNORMAL) POC GLUCOSE (06/09/2005 6:58 AM MEDIA AID) GLUCOSE POC 214(H) 65 - 109 mg/dL INTERFACE SYSTEM 06/09/2005 6:58 AM MEDIA AID Patric Thomas MD POINT OF CARE TESTING Fin al Result Performing Organization Address [facility] Phone Number INTERFACE SYSTEM Refer to clinic/hospital department * (ABNORMAL) POC GLUCOSE (06/08/2005 10:11 PM MEDIA AID) GLUCOSE POC 262(H) 65 - 109 mg/dL INTERFACE SYSTEM 06/08/2005 10:1 1 PM MEDIA AID Patric Thomas MD POINT OF CARE TESTING Fin al Result Performing Organization Address [facility] Phone Number INTERFACE SYSTEM Refer to clinic/hospital department * (ABNORMAL) POC GLUCOSE (06/08/2005 4:29 PM MEDIA AID) GLUCOSE POC 268(H) 65 - 109 mg/dL INTERFACE SYSTEM 06/08/2005 4:29 PM MEDIA AID Patric Thomas MD POINT OF CARE TESTING Fin al Result Performing Organization Address [facility] de Phone Number INTERFACE SYSTEM Refer to clinic/hospital department * (ABNORMAL) POC GLUCOSE (06/08/2005 11:22 AM MEDIA AID) GLUCOSE POC 253(H) 65 - 109 mg/dL INTERFACE SYSTEM 06/08/2005 11:2 2 AM MEDIA AID Patric Thomas MD POINT OF CARE TESTING Fin al Result Performing Organization Address [facility] de Phone Number INTERFACE SYSTEM Refer to clinic/hospital department * (ABNORMAL) POC GLUCOSE (06/08/2005 6:54 AM MEDIA AID) GLUCOSE POC 214(H) 65 - 109 mg/dL INTERFACE SYSTEM 06/08/2005 6:54 AM MEDIA AID Patric Thomas MD POINT OF CARE TESTING Fin al Result Performing Organization Address [facility] de Phone Number INTERFACE SYSTEM Refer to clinic/hospital department * CBC WITH DIFFERENTIAL (06/08/2005 5:05 AM MEDIA AID) NEUTROPHILS 57 45 - 70 % INTERFAC [...] 0.20 K/uL INTERFACE SYSTEM 06/08/2005 5:05 AM MEDIA AID Patric Thomas MD HEMATOLOGY ORDERABLES Fin al Result Performing Organization Address [facility] de Phone Number INTERFACE SYSTEM Refer to clinic/hospital department * CBC WITH DIFFERENTIAL (06/08/2005 5:05 AM MEDIA AID) WBC 7.5 4.0 - 9.8 K/uL INTERFACE [...] 12.4 fL INTERFACE SYSTEM 06/08/2005 5:05 AM MEDIA AID Patric Thomas MD HEMATOLOGY ORDERABLES Fin al Result Performing Organization Address [facility] Phone Number INTERFACE SYSTEM Refer to clinic/hospital department * MAGNESIUM LEVEL (06/08/2005 5:05 AM MEDIA AID) MAGNESIUM 1.9 1.5 - 2.5 mg/dL INTERFACE SYSTEM 06/08/2005 5:05 AM MEDIA AID Patric Thomas MD CHEMISTRY ORDERABLES Freya l Result Performing Organization Address [facility] Phone Number INTERFACE SYSTEM Refer to clinic/hospital department * (ABNORMAL) BASIC METABOLIC PANEL (06/08/2005 5:05 AM MEDIA AID) GLUCOSE 218(H) 65 - 109 mg/dL INTERFACE [...] 30 mmol/L INTERFACE SYSTEM 06/08/2005 5:05 AM MEDIA AID Patric Thomas MD CHEMISTRY ORDERABLES Freya l Result Performing Organization Address [facility] Phone Number INTERFACE SYSTEM Refer to clinic/hospital department * (ABNORMAL) POC GLUCOSE (06/07/2005 9:14 PM MEDIA AID) GLUCOSE POC 226(H) 65 - 109 mg/dL INTERFACE SYSTEM 06/07/2005 9:14 PM MEDIA AID Patric Thomas MD POINT OF CARE TESTING Fin al Result Performing Organization Address City/[facility] de Phone Number INTERFACE SYSTEM Refer to clinic/hospital department * CBC WITH DIFFERENTIAL (06/07/2005 5:12 PM MEDIA AID) NEUTROPHILS 64 45 - 70 % INTERFAC [...] 0.20 K/uL INTERFACE SYSTEM 06/07/2005 5:12 PM MEDIA AID Eric Carter HEMATOLOGY ORDERABLES Final Resu lt Performing Organization Address [facility] Phone Number INTERFACE SYSTEM Refer to clinic/hospital department * (ABNORMAL) CBC WITH DIFFERENTIAL (06/07/2005 5:12 PM MEDIA AID) WBC 8.5 4.0 - 9.8 K/uL INTERFACE [...] 12.4 fL INTERFACE SYSTEM 06/07/2005 5:12 PM MEDIA AID Eric Carter HEMATOLOGY ORDERABLES Final Resu lt INTERFACE SYSTEM Refer to clinic/hospital department * (ABNORMAL) POC GLUCOSE (06/07/2005 4:33 PM MEDIA AID) GLUCOSE POC 218(H) 65 - 109 mg/dL INTERFACE SYSTEM 06/07/2005 4:33 PM MEDIA AID Patric Thomas MD POINT OF CARE TESTING Fin al Result Performing Organization Address [facility] Co de Phone Number INTERFACE SYSTEM Refer to clinic/hospital department * (ABNORMAL) POC GLUCOSE (06/07/2005 11:44 AM MEDIA AID) GLUCOSE POC 271(H) 65 - 109 mg/dL INTERFACE SYSTEM 06/07/2005 11:4 4 AM MEDIA AID Patric Thomas MD POINT OF CARE TESTING Fin al Result Performing Organization Address [facility] Co de Phone Number INTERFACE SYSTEM Refer to clinic/hospital department * (ABNORMAL) CBC WITH DIFFERENTIAL (06/07/2005 5:36 AM MEDIA AID) NEUTROPHILS 73(H) 45 - 70 % INTERFAC [...] 0.20 K/uL INTERFACE SYSTEM 06/07/2005 5:36 AM MEDIA AID us Carmina Dick MD HEMATOLOGY ORDERABLES Final Resu lt INTERFACE SYSTEM Refer to clinic/hospital department * (ABNORMAL) CBC WITH DIFFERENTIAL (06/07/2005 5:36 AM MEDIA AID) WBC 9.7 4.0 - 9.8 K/uL INTERFACE [...] 12.4 fL INTERFACE SYSTEM 06/07/2005 5:36 AM MEDIA AID us Carmina Dick MD HEMATOLOGY ORDERABLES Final Resu Performing Organization Address [facility] Phone Number INTERFACE SYSTEM Refer to clinic/hospital department * (ABNORMAL) BASIC METABOLIC PANEL (06/07/2005 5:36 AM MEDIA AID) GLUCOSE 194(H) 65 - 109 mg/dL INTERFACE [...] 30 mmol/L INTERFACE SYSTEM 06/07/2005 5:36 AM MEDIA AID us Carmina Dick MD CHEMISTRY ORDERABLES Final Resul t Performing Organization Address [facility] Phone Number INTERFACE SYSTEM Refer to clinic/hospital department * (ABNORMAL) POC GLUCOSE (06/07/2005 5:31 AM MEDIA AID) GLUCOSE POC 197(H) 65 - 109 mg/dL INTERFACE SYSTEM 06/07/2005 5:31 AM MEDIA AID Patric Thomas MD POINT OF CARE TESTING Fin al Result Performing Organization Address [facility] Phone Number INTERFACE SYSTEM Refer to clinic/hospital department * (ABNORMAL) CK TOTAL, RELATIVE INDEX (06/07/2005 4:10 AM MEDIA AID) CK 2,552(H) 10 - 170 U/L INTERFACE SYSTEM CARDIAC RELATIVE INDEX 10.2(H) <=4.0 INTERFACE SYSTEM 06/07/2005 4:10 AM MEDIA AID Carmina Dick MD CHEMISTRY ORDERABLES Final Resul t Performing Organization Address [facility] Phone Number INTERFACE SYSTEM Refer to clinic/hospital department * (ABNORMAL) CKMB W/REFLEX CK (06/07/2005 4:10 AM MEDIA AID) CKMB 260.1(AA) <=6.7 ng/mL INTERFACE SYSTEM Comment:Results called to alka at 06/07/2005 5:15 AM and read back verified. CKMB INTERP See Below INTERFAC E SYSTEM Comment:Elevated CKMB,Consis tent with Myocardial Injury. 06/07/2005 4:10 AM MEDIA AID Carmina Dick MD CHEMISTRY ORDERABLES Final Resul t Performing Organization Address [facility] Phone Number INTERFACE SYSTEM Refer to clinic/hospital department * MAGNESIUM LEVEL (06/07/2005 4:10 AM MEDIA AID) MAGNESIUM 1.8 1.5 - 2.5 mg/dL INTERFACE SYSTEM 06/07/2005 4:10 AM MEDIA AID Patric Thomas MD CHEMISTRY ORDERABLES Freya l Result Performing Organization Address [facility] Phone Number INTERFACE SYSTEM Refer to clinic/hospital department * (ABNORMAL) TROPONIN (W/REFLEX CKMB/CK) (06/07/2005 4:10 AM MEDIA AID) TROPONIN T 5.35(AA) <=0.03 ng/mL INTERFACE SYSTEM Comment:Results called to Lyndsay fernandes at 06/07/2005 4:55 AM and read back verified. TROPONIN T INTERP See Below INTERFACE SYSTEM Comment:Elevated Troponin-T, Consistent with Myocardial Injury 06/07/2005 4:10 AM MEDIA AID Carmina Dick MD CHEMISTRY ORDERABLES Final Resul t Performing Organization Address [facility] Phone Number INTERFACE SYSTEM Refer to clinic/hospital department * (ABNORMAL) POC GLUCOSE (06/07/2005 12:40 AM MEDIA AID) GLUCOSE POC 226(H) 65 - 109 mg/dL INTERFACE SYSTEM 06/07/2005 12:4 0 AM MEDIA AID Patric Thomas MD POINT OF CARE TESTING Fin al Result Performing Organization Address [facility] Phone Number INTERFACE SYSTEM Refer to clinic/hospital department * (ABNORMAL) CK TOTAL, RELATIVE INDEX (06/06/2005 11:30 PM MEDIA AID) CK 3,063(H) 10 - 170 U/L INTERFACE SYSTEM CARDIAC RELATIVE INDEX 12.1(H) <=4.0 INTERFACE SYSTEM 06/06/2005 11:3 0 PM MEDIA AID Carmina Dick MD CHEMISTRY ORDERABLES Final Resul t Performing Organization Address [facility] Phone Number INTERFACE SYSTEM Refer to clinic/hospital department * (ABNORMAL) CKMB W/REFLEX CK (06/06/2005 11:30 PM MEDIA AID) CKMB 369.5(AA) <=6.7 ng/mL INTERFACE SYSTEM Comment: Results called to Hiwot at 06/07/2005 7:19 AM and read back verified. Previous specimen used; approved by floor. , (2330 from 06/06/05) CKMB INTERP See Below INTERFAC E SYSTEM Comment:Elevated CKMB,Consis tent with Myocardial Injury. 06/06/2005 11:3 0 PM MEDIA AID Carmina Dick MD CHEMISTRY ORDERABLES Final Resul t Performing Organization Address [facility] Phone Number INTERFACE SYSTEM Refer to clinic/hospital department * MAGNESIUM LEVEL (06/06/2005 11:30 PM MEDIA AID) MAGNESIUM 1.9 1.5 - 2.5 mg/dL INTERFACE SYSTEM 06/06/2005 11:3 0 PM MEDIA AID Patric Thomas MD CHEMISTRY ORDERABLES Freya l Result Performing Organization Address [facility] Phone Number INTERFACE SYSTEM Refer to clinic/hospital department * (ABNORMAL) CBC WITH DIFFERENTIAL (06/06/2005 11:30 PM MEDIA AID) NEUTROPHILS 83(H) 45 - 70 % INTERFAC [...] K/uL INTERFACE SYSTEM 06/06/2005 11:3 0 PM MEDIA AID Patric Thomas MD HEMATOLOGY ORDERABLES Fin al Result Performing Organization Address [facility] Phone Number INTERFACE SYSTEM Refer to clinic/hospital department * (ABNORMAL) CBC WITH DIFFERENTIAL (06/06/2005 11:30 PM MEDIA AID) WBC 14.5(H) 4.0 - 9.8 K/uL INTERFACE [...] fL INTERFACE SYSTEM 06/06/2005 11:3 0 PM MEDIA AID Patric Thomas MD HEMATOLOGY ORDERABLES Fin al Result INTERFACE SYSTEM Refer to clinic/hospital department * LIPID PANEL (06/06/2005 11:30 PM MEDIA AID) Pathologist [facility] LIPID PANEL COMMENT See below INTERFACE SYSTEM [...] for risk classifications. 06/06/2005 11:3 0 PM MEDIA AID us Carmina Dick MD CHEMISTRY ORDERABLES Final Resul t Performing Organization Address [place]/[facility] Phone Number INTERFACE SYSTEM Refer to clinic/hospital department * (ABNORMAL) COMPREHENSIVE METABOLIC PANEL (06/06/2005 11:30 PM MEDIA AID) GLUCOSE 225(H) 65 - 109 mg/dL INTERFACE [...] mmol/L INTERFACE SYSTEM 06/06/2005 11:3 0 PM MEDIA AID us Carmina Dick MD CHEMISTRY ORDERABLES Final Resul t Performing Organization Address [facility] de Phone Number INTERFACE SYSTEM Refer to clinic/hospital department * (ABNORMAL) POC GLUCOSE (06/06/2005 8:43 PM MEDIA AID) GLUCOSE POC 247(H) 65 - 109 mg/dL INTERFACE SYSTEM 06/06/2005 8:43 PM MEDIA AID us Patric Thomas MD POINT OF CARE TESTING Ceferino moore Result INTERFACE SYSTEM Refer to clinic/hospital department documented in this encounter Visit Diagnoses Diagnosis Acute myocardial infarction of other anterior wall, initial episode of care- Primary documented in this encounter
--- OUTSIDE RECORDS SUMMARY | 2025-02-04 19:00 | XMS_ITS | Encounter Summary ---
Author Organization [employer] Address 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 Elena Navarro MD [facility] [address] [address] Patric Thomas MD [address] [facility] [address] [facility] [address] [place] [address] Coronary Atherosclerosis of [place] Coronary Artery (Primary Dx) Social History Tobacco Use Types Packs/Day Years Used Date Smoking Tobacco: Never Assessed Sex and Gender Information Value Date Recorded Sex Assigned at Not on file 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 Phone Number INTERFACE SYSTEM Refer to clinic/hospital department * (ABNORMAL) POC GLUCOSE (09/09/2006 11:06 AM CDT) GLUCOSE POC 226(H) 65 - 99 mg/dL INTERFACE SYSTEM 09/09/2006 11:0 6 AM CDT Patric Thomas MD POINT OF CARE TESTING Javier jadiel Performing Organization Address [facility] Phone Number INTERFACE SYSTEM Refer to clinic/hospital department * (ABNORMAL) POC GLUCOSE (09/09/2006 7:38 AM CDT) GLUCOSE POC 169(H) 65 - 99 mg/dL INTERFACE SYSTEM 09/09/2006 7:38 AM CDT Patric Thomas MD POINT OF CARE TESTING Javier jadiel Performing Organization Address [facility] Phone Number INTERFACE SYSTEM Refer [...] MC HEMATOLOGY ORDERABLES Edited Performing Organization Address [facility] Phone Number INTERFACE SYSTEM Refer [...] MC HEMATOLOGY ORDERABLES Edited Performing Organization Address [facility] Phone Number INTERFACE SYSTEM Refer to clinic/hospital department * MAGNESIUM LEVEL (09/09/2006 4:40 AM CDT) MAGNESIUM 2.5 1.5 - 2.5 mg/dL INTERFACE SYSTEM 09/09/2006 4:40 AM CDT Patric Thomas MD CHEMISTRY ORDERABLES Edit ed Performing Organization Address [facility] Phone Number INTERFACE SYSTEM Refer [...] and non- Americans is available on the [facility] Intranet at: [email or web address] Select: Lab Policies and Procedures Select: Reference Ranges - GFR 09/09/2006 4:40 AM CDT us Kori MC CHEMISTRY ORDERABLES Edited Performing Organization Address [facility] de Phone Number INTERFACE SYSTEM Refer to clinic/hospital department * (ABNORMAL) POC GLUCOSE (09/08/2006 8:21 PM CDT) GLUCOSE POC 245(H) 65 - 99 mg/dL INTERFACE SYSTEM 09/08/2006 8:21 PM CDT Patric Thmoas MD POINT OF CARE TESTING Javieradair duvall Performing Organization Address [facility] de Phone Number INTERFACE SYSTEM Refer to clinic/hospital department * (ABNORMAL) POC GLUCOSE (09/08/2006 4:45 PM CDT) GLUCOSE POC 190(H) 65 - 99 mg/dL INTERFACE SYSTEM 09/08/2006 4:45 PM CDT Patric Thomas MD POINT OF CARE TESTING Javier jadiel Performing Organization Address [facility] de Phone Number INTERFACE SYSTEM Refer to clinic/hospital department * (ABNORMAL) POC GLUCOSE (09/08/2006 11:32 AM CDT) GLUCOSE POC 140(H) 65 - 99 mg/dL INTERFACE SYSTEM 09/08/2006 11:3 2 AM CDT Patric Thomas MD POINT OF CARE TESTING Javier jadiel Performing Organization Address [facility] Phone Number INTERFACE SYSTEM Refer to clinic/hospital department * (ABNORMAL) POC GLUCOSE (09/08/2006 9:35 AM CDT) GLUCOSE POC 119(H) 65 - 99 mg/dL INTERFACE SYSTEM 09/08/2006 9:35 AM CDT Patric Thomas MD POINT OF CARE TESTING Javier jadiel Performing Organization Address [facility] Phone Number INTERFACE SYSTEM Refer to clinic/hospital department * (ABNORMAL) POC GLUCOSE (09/08/2006 6:01 AM CDT) GLUCOSE POC 134(H) 65 - 99 mg/dL INTERFACE SYSTEM 09/08/2006 6:01 AM CDT Patric Thomas MD POINT OF CARE TESTING Javier jadiel Performing Organization Address [facility] Phone Number INTERFACE SYSTEM Refer to clinic/hospital department * (ABNORMAL) POC GLUCOSE (09/08/2006 4:30 AM CDT) GLUCOSE POC 129(H) 65 - 99 mg/dL INTERFACE SYSTEM 09/08/2006 4:30 AM CDT Patric Thomas MD POINT OF CARE TESTING Javier jadiel Performing Organization Address [facility] Phone Number INTERFACE SYSTEM Refer [...] HEMATOLOGY ORDERABLES Edit ed Performing Organization Address [facility] de Phone Number INTERFACE SYSTEM Refer [...] HEMATOLOGY ORDERABLES Edit ed Performing Organization Address [facility] de Phone Number INTERFACE SYSTEM Refer [...] patients with mechanical heart valves or post CT. Pediatric (12 years and under): 1.5 - [...] and non- Americans is available on the [facility] Intranet at: [email or web address] [email or web address] [email or web address] Select: Lab Policies and Procedures Select: Reference Ranges - GFR 09/08/2006 4:30 AM CDT Elena Navarro MD CHEMISTRY ORDERABLES Edite d Performing Organization Address [facility] de Phone Number INTERFACE SYSTEM Refer to clinic/hospital department * (ABNORMAL) CVR ONLY, CKMB/CK (09/08/2006 4:30 AM CDT) CKMB 3.8 <=6.7 ng/mL INTERFACE SYSTEM CKMB INTERP Negative INTERFAC E SYSTEM CK 232(H) 10 - 170 U/L INTERFACE SYSTEM CARDIAC RELATIVE INDEX 1.6 <=4.0 INTERFACE SYSTEM 09/08/2006 4:30 AM CDT Elena Navarro MD CHEMISTRY ORDERABLES Edite d Performing Organization Address [facility] de Phone Number INTERFACE SYSTEM Refer to clinic/hospital department * (ABNORMAL) POC GLUCOSE (09/07/2006 11:35 PM CDT) GLUCOSE POC 135(H) 65 - 99 mg/dL INTERFACE SYSTEM 09/07/2006 11:3 5 PM CDT Patric Thomas MD POINT OF CARE TESTING Javier jadiel Performing Organization Address [facility] de Phone Number INTERFACE SYSTEM Refer to clinic/hospital department * (ABNORMAL) POC GLUCOSE (09/07/2006 10:18 PM CDT) GLUCOSE POC 130(H) 65 - 99 mg/dL INTERFACE SYSTEM 09/07/2006 10:1 8 PM CDT Patric Thomas MD POINT OF CARE TESTING Javier jadiel Performing Organization Address City/[facility] Phone Number INTERFACE SYSTEM Refer to clinic/hospital department * MAGNESIUM LEVEL (09/07/2006 10:00 PM CDT) MAGNESIUM 2.1 1.5 - 2.5 mg/dL INTERFACE SYSTEM 09/07/2006 10:0 0 PM CDT Kori MC CHEMISTRY ORDERABLES Edited Performing Organization Address [facility] Phone Number INTERFACE SYSTEM Refer to clinic/hospital department * POTASSIUM LEVEL (09/07/2006 10:00 PM CDT) POTASSIUM 4.0 3.5 - 4.9 mmol/L INTERFACE SYSTEM 09/07/2006 10:0 0 PM CDT us Kori MC CHEMISTRY ORDERABLES Edited Performing Organization Address [facility] Phone Number INTERFACE SYSTEM Refer to clinic/hospital department * (ABNORMAL) CVR ONLY, CKMB/CK (09/07/2006 8:45 PM CDT) CKMB 5.2 <=6.7 ng/mL INTERFACE SYSTEM CKMB INTERP Negative INTERFAC E SYSTEM CK 260(H) 10 - 170 U/L INTERFACE SYSTEM CARDIAC RELATIVE INDEX 2.0 <=4.0 INTERFACE SYSTEM 09/07/2006 8:45 PM CDT Elena Navarro MD CHEMISTRY ORDERABLES Edite d Performing Organization Address City/[facility] Phone Number INTERFACE SYSTEM Refer to clinic/hospital department * POC GLUCOSE (09/07/2006 8:44 PM CDT) GLUCOSE POC 94 65 - 99 mg/dL INTERFACE SYSTEM 09/07/2006 8:44 PM CDT Patric Thomas MD POINT OF CARE TESTING Javier jadiel Performing Organization Address [facility] Phone Number INTERFACE SYSTEM Refer to clinic/hospital department * (ABNORMAL) POC GLUCOSE (09/07/2006 6:23 PM CDT) GLUCOSE POC 152(H) 65 - 99 mg/dL INTERFACE SYSTEM 09/07/2006 6:23 PM CDT Patric Thomas MD POINT OF CARE TESTING Javier jadiel Performing Organization Address [facility] Phone Number INTERFACE SYSTEM Refer to clinic/hospital department * (ABNORMAL) POC GLUCOSE (09/07/2006 4:48 PM CDT) GLUCOSE POC 191(H) 65 - 99 mg/dL INTERFACE SYSTEM 09/07/2006 4:48 PM CDT Patric Thomas MD POINT OF CARE TESTING Javier jadiel Performing Organization Address [facility] Phone Number INTERFACE SYSTEM Refer to clinic/hospital department * (ABNORMAL) POC GLUCOSE (09/07/2006 3:51 PM CDT) GLUCOSE POC 189(H) 65 - 99 mg/dL INTERFACE SYSTEM 09/07/2006 3:51 PM CDT Patric Thomas MD POINT OF CARE TESTING Javier jadiel Performing Organization Address City/[facility] Phone Number INTERFACE SYSTEM Refer to clinic/hospital department * POTASSIUM LEVEL (09/07/2006 3:45 PM CDT) POTASSIUM 4.1 3.5 - 4.9 mmol/L INTERFACE SYSTEM 09/07/2006 3:45 PM CDT us Elena Navarro MD CHEMISTRY ORDERABLES Edite d Performing Organization Address [facility] de Phone Number INTERFACE SYSTEM Refer to clinic/hospital department * (ABNORMAL) POC GLUCOSE (09/07/2006 2:45 PM CDT) GLUCOSE POC 226(H) 65 - 99 mg/dL INTERFACE SYSTEM 09/07/2006 2:45 PM CDT us Patric Thomas MD POINT OF CARE TESTING Javier jadiel Performing Organization Address [facility] de Phone Number INTERFACE SYSTEM Refer to clinic/hospital department * (ABNORMAL) POC GLUCOSE (09/07/2006 1:17 PM CDT) GLUCOSE POC 238(H) 65 - 99 mg/dL INTERFACE SYSTEM 09/07/2006 1:17 PM CDT us Patric Thomas MD POINT OF CARE TESTING Javier jadiel Performing Organization Address [facility] de Phone Number INTERFACE SYSTEM Refer [...] CHEMISTRY ORDERABLES Edit ed Performing Organization Address [facility] de Phone Number INTERFACE SYSTEM Refer [...] CHEMISTRY ORDERABLES Edite d Performing Organization Address [facility] de Phone Number INTERFACE SYSTEM Refer [...] HEMATOLOGY ORDERABLES Edit ed Performing Organization Address [facility] de Phone Number INTERFACE SYSTEM Refer [...] patients with mechanical heart valves or post CT. Pediatric (12 years and under): 1.5 - [...] HEMATOLOGY ORDERABLES Edit ed Performing Organization Address [facility] de Phone Number INTERFACE SYSTEM Refer to clinic/hospital department * MAGNESIUM LEVEL (09/07/2006 10:00 AM CDT) MAGNESIUM 2.2 1.5 - 2.5 mg/dL INTERFACE SYSTEM 09/07/2006 10:0 0 AM CDT us Elena Navarro MD CHEMISTRY ORDERABLES Edite d Performing Organization Address [facility] Phone Number INTERFACE SYSTEM Refer [...] and non- Americans is available on the [facility] Intranet at: [email or web address] Select: Lab Policies and Procedures Select: Reference Ranges - GFR 09/07/2006 10:0 0 AM CDT us Elena Navarro MD CHEMISTRY ORDERABLES Edite d Performing Organization Address [facility] de Phone Number INTERFACE SYSTEM Refer [...] CHEMISTRY ORDERABLES Edit ed Performing Organization Address [facility] de Phone Number INTERFACE SYSTEM Refer [...] CHEMISTRY ORDERABLES Edit ed Performing Organization Address City/State/[facility] Co de Phone Number INTERFACE SYSTEM [...] CHEMISTRY ORDERABLES Edit ed Performing Organization Address City/State/[facility] Co de Phone Number INTERFACE SYSTEM Refer to clinic/hospital department * (ABNORMAL) POC GLUCOSE (09/07/2006 5:15 AM CDT) GLUCOSE POC 211(H) 65 - 99 mg/dL INTERFACE SYSTEM 09/07/2006 5:15 AM CDT Patric Thomas MD POINT OF CARE TESTING Javier jadiel Performing Organization Address [facility] Phone Number INTERFACE SYSTEM Refer to clinic/hospital department * (ABNORMAL) POC GLUCOSE (09/06/2006 9:43 PM CDT) GLUCOSE POC 186(H) 65 - 99 mg/dL INTERFACE SYSTEM 09/06/2006 9:43 PM CDT Patric Thomas MD POINT OF CARE TESTING Javier jadiel Performing Organization Address [facility] Phone Number INTERFACE SYSTEM Refer [...] MD URINE ORDERABLES Edited Performing Organization Address [facility] Phone Number INTERFACE SYSTEM Refer [...] URINE ORDERABLES Edited Performing Organization Address [facility] Phone Number INTERFACE SYSTEM Refer to clinic/hospital department * (ABNORMAL) POC GLUCOSE (09/06/2006 2:22 PM CDT) GLUCOSE POC 174(H) 65 - 99 mg/dL INTERFACE SYSTEM 09/06/2006 2:22 PM CDT Patric Thomas MD POINT OF CARE TESTING Javier jadiel Performing Organization Address [facility] Phone Number INTERFACE SYSTEM Refer to clinic/hospital department * POC ACTIVATED CLOTTING TIME (09/06/2006 1:28 PM CDT) ACT POC 110 Seconds INTERFACE SYSTEM Comment: Note sheath pull range change effective 10/07/2005. ACT value for sheath pull at [facility] has been established to be < or = to 1 40. (See also Nursing Procedures for sheath pull in related nursing areas) 09/06/2006 1:2 8 PM CDT Patric Thomas MD POINT OF CARE TESTING Javier jadiel Performing Organization Address [facility] Phone Number INTERFACE SYSTEM Refer to clinic/hospital department * POC ACTIVATED CLOTTING TIME (09/06/2006 10:13 AM CDT) ACT POC 602 Seconds INTERFACE SYSTEM Comment: Note sheath pull range change effective 10/07/2005. ACT value for sheath pull at [facility] has been established to be < or = to 1 40. (See also Nursing Procedures for sheath pull in related nursing areas) COMMENT, ACT POC Rpt @ no charge INTERFACE SYSTEM 09/06/2006 10:1 3 AM CDT Patric Thomas MD POINT OF CARE TESTING Javieradair duvall Performing Organization Address [facility] Phone Number INTERFACE SYSTEM Refer to clinic/hospital department * POC ACTIVATED CLOTTING TIME (09/06/2006 10:13 AM CDT) ACT POC 755 Seconds INTERFACE SYSTEM Comment: Note sheath pull range change effective 10/07/2005. ACT value for sheath pull at [facility] has been established to be < or = to 1 40. (See also Nursing Procedures for sheath pull in related nursing areas) 09/06/2006 10:1 3 AM CDT Patric Thomas MD POINT OF CARE TESTING Javier jadiel Performing Organization Address [facility] Phone Number INTERFACE SYSTEM Refer to clinic/hospital department * (ABNORMAL) POC GLUCOSE (09/06/2006 7:44 AM CDT) COMMENT, GLU POC Notified RN INTERFACE SYSTEM GLUCOSE POC 231(H) 65 - 99 mg/dL INTERFACE SYSTEM 09/06/2006 7:44 AM CDT Patric Thomas MD POINT OF CARE TESTING Javier jadiel Performing Organization Address [facility] Phone Number INTERFACE SYSTEM Refer to clinic/hospital department documented in this encounter Visit Diagnoses Diagnosis Coronary atherosclerosis of [place] coronary artery- Primary documented in this encounter
--- OUTSIDE RECORDS SUMMARY | 2025-02-04 19:00 | XMS_ITS | Encounter Summary ---
Author Organization 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 Patient CallBack number: [phone] NG CRATER documented in this encounter Plan of Treatment Not on file documented as of this encounter Visit Diagnoses Not on filedocumented in this encounter Care Teams Car Wash Manager Relationship Specialty Start Date End Date Ashwin Lawler MD PCP - General 09/26/17 documented as of this encounter
--- OUTSIDE RECORDS SUMMARY | 2025-02-04 19:00 | XMS_ITS | Encounter Summary ---
Author Organization [facility] Address [address] [place] [address] Care Team Providers Care Soaping Machine Back Tender Name Role Phone Unavailable Primary Care Provider Unavailabl e Encounter Details Date Type Department Care Team (Late st Contact Info) Description 09/06/2006 Outpatient Historical [facility] Cardiovas and Thor Surg at [facility] [address] [facility] [place] [address] Elena Navarro MD [address] [facility] [address] [place] [address] Social History Tobacco Use Types Packs/Day Years Used Date Smoking Tobacco: Never Assessed Sex and Gender Information Value Date Recorded Sex Assigned at Not on file 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
--- OUTSIDE RECORDS SUMMARY | 2025-02-04 19:00 | XMS_ITS | Encounter Summary ---
Author Organization [facility] Address [address] [place] [address] Care Team Providers Care Bicycle Inspector Name Role Phone Unavailable Primary Care Provider Unavailabl e Encounter Details Date Type Department Care Team (Late st Contact Info) Description 06/08/2005 Outpatient Historical [facility] Support [facility] ([facility]) [address] [place] [id number] Sebastian Fletcher MD NO ADDRESS ON FILE Social History Tobacco Use Types Packs/Day Years Used Date Smoking Tobacco: Never Assessed Sex and Gender Information Value Date Recorded Sex Assigned at Not on file Legal Sex Male 4:42 AM PATIENT CARE Gender Identity Not on file Sexual Orientation Not on file documented as of this encounter Plan of Treatment Not on file documented as of this encounter Visit Diagnoses Not on filedocumented in this encounter
--- OUTSIDE RECORDS SUMMARY | 2025-02-04 19:00 | XMS_ITS | Encounter Summary ---
Author Organization [employer] Address [address] [place] [address] Care Team Providers Care Forensic Structural Engineer Name Role Phone Unavailable Primary Care Provider Unavailabl e Encounter Details Date Type Department Care Team (Late st Contact Info) Description 09/06/2006 Outpatient Historical [facility] ([facility]) [address] 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
--- OUTSIDE RECORDS SUMMARY | 2025-02-04 19:00 | XMS_ITS | Encounter Summary ---
Author Organization [facility] Address [address] [place] [address] Phone Care Team Providers Care Telephone Appointment Clerk Name Role Phone Ashwin Lawler MD Primary Care Provider [phone] Encounter Details Date Type Department Care Team (Late st Contact Info) Description 01/03/2025 Results Follow-Up [facility] Cardiology [facility] Medical Office Building [address] [place] [address] Lebron Guerra MD PhD [address] [place] [address] ECG 12 lead Social History Tobacco Use Types Packs/Day Years [...] on file Legal Sex Male 1:57 AM ORDER BOOKER Gender Identity Not on file Sexual Orientation Not on file documented as of this encounter Plan of Treatment Upcoming Encounters Date Type Department Care Team (Latest Contact Info) Description 05/05/2025 8:30 AM ORDER BOOKER Hospital Encounter [facility] Electrophysiology Lab [address] [place] [id number] Lebron Guerra MD PhD [id number] [place] [address] Chronic systolic heart failure (HCC) 05/05/2025 8:30 AM ORDER BOOKER - 05/05/2025 11:17 AM ORDER BOOKER Surgery [facility] Electrophysiology Lab [address] [facility] [place] [address] Lebron Guerra MD PhD [id number] [facility] [address] [place] [address] INSERT/REPLACE IMPLANTABLE CARDIOVERTER-DEFIB RILLATOR (ICD) dual chamber [id number] documented as of this encounter Visit Diagnoses Not on filedocumented in this encounter Care Teams Telephone Appointment Clerk Relationship Specialty Start Date End Date Ashwin Lawler MD [address] [place] [address] PCP - General Family Medicine 08/21/22 documented as of this encounter
--- OUTSIDE RECORDS SUMMARY | 2025-02-04 19:00 | XMS_ITS | Encounter Summary ---
Author Organization [facility] Address [address] [place] [address] Phone Care Team Providers Care Charhouse Worker Name Role Phone Ashwin Lawler MD Primary Care Provider Encounter Details Date Type Department Care Team (Late st Contact Info) Description 01/14/2025 Telephone [facility] Medicine Cardiology [address] [facility] 8th Floor [address] [place] [phone] Lebron Guerra MD PhD [address] [facility] [address] [place] [address] Social History Tobacco Use Types Packs/Day Years [...] on file Legal Sex Male 1:57 AM HOUSEPERSON Gender Identity Not on file Sexual Orientation Not on file documented as of this encounter Miscellaneous Notes * Telephone Encounter - Radha Sotomayor RN - 01/17/2025 3:56 PM CDT LMOR letting know that I was calling to discuss dates for the ICD implant. * Telephone Encounter - Radha Sotomayor RN - 01/15/2025 2:29 PM CDT Spoke to , Tash. She states patients heel was debrided and he is finishing antibiotics. She would like to schedule him for his ICD implant. Let her know we are scheduling out to April. Let herknow I will look at schedule and call her Monday to choose a date and go over details. * Telephone Encounter - Lis Lambert - 01/14/2025 1:18 PM CDT Kari Pt was seen on DOS 01/03/25. Pt's calling to discuss scheduling his ICD Implantation procedure. Pls return call as soon as possible. documented in this encounter Plan of Treatment Upcoming Encounters Date Type Department Care Team (Latest Contact Info) Description 05/05/2025 8:30 AM [facility] Hospital Encounter [facility] Electrophysiology Lab 1 [place] [address] Lebron Guerra MD PhD [address] [address] Chronic systolic heart failure (HCC) 05/05/2025 8:30 AM HOUSEPERSON - 05/05/2025 11:17 AM HOUSEPERSON Surgery [facility] Electrophysiology Lab 1 [place] [address] Lebron Guerra MD PhD [address] [address] INSERT/REPLACE IMPLANTABLE CARDIOVERTER-DEFIB RILLATOR (ICD) dual chamber [address]80[address] documented as of this encounter Visit Diagnoses Not on filedocumented in this encounter Care Teams Charhouse Worker Relationship Specialty Start Date End Date Ashwin Lawler MD [address] [place] [id number] PCP - General Family Medicine 08/21/22 documented as of this encounter
== END 2025-02-04 18:54 | disposition left against medical advice (07) ==
LOC: ANHED 17:14 → ANH3MEDSUR 18:45
PROVIDERS: Emergency Provider Emergency Medicine; PCP Family Medicine
DX: A41.9 Sepsis, unspecified organism (principal); L08.9 Local infection of the skin and subcutaneous tissue, unspecified; E11.621 Type 2 diabetes mellitus with foot ulcer; L97.429 Non-pressure chronic ulcer of left heel and midfoot with unspecified severity; E11.3593 Type 2 diabetes mellitus with proliferative diabetic retinopathy without macular edema, bilateral; E11.42 Type 2 diabetes mellitus with diabetic polyneuropathy; I50.22 Chronic systolic (congestive) heart failure; I11.0 Hypertensive heart disease with heart failure; I25.2 Old myocardial infarction; K44.9 Diaphragmatic hernia without obstruction or gangrene; F33.41 Major depressive disorder, recurrent, in partial remission; Z95.1 Presence of aortocoronary bypass graft; Z95.5 Presence of coronary angioplasty implant and graft; Z85.038 Personal history of other malignant neoplasm of large intestine; Z89.021 Acquired absence of right finger(s); Z90.49 Acquired absence of other specified parts of digestive tract; Z87.891 Personal history of nicotine dependence; Z79.84 Long term (current) use of oral hypoglycemic drugs; Z79.4 Long term (current) use of insulin; Z79.899 Other long term (current) drug therapy
CPT/HCPCS: 36415; 71045; 73630; 80053; 81001; 83605; 85025; 85610; 85730; 86140; 87040; 87186; 93005; 96365; 96367; 99284; J0692; J1836; J7120

== ENCOUNTER 2025-02-05 10:39 | Emergency (ER) | payer MEDICARE, SELFPAY ==
[2025-02-05] VITALS (7 sets, daily range): BP systolic 84–153; BP diastolic 56–82; PULSE 91–111; RESP 12–22; TEMP 36.6–37.4; O2SAT 99–100
--- NOTE | ~2025-02-05 | CT_ITS ---
Gas from the open wound over differential includes necrotizing fasciitis.: CT LE LT w con DATE: 02/05/2025 12:56 INDICATION: Diabetic heel ulcer TECHNIQUE: High resolution computed tomography (CT) of the left foot and ankle was performed with 100 mL Omnipaque-350 intravenous contrast. Additional sagittal and coronal reconstructions were performed. Automated exposure control and iterative reconstruction technique were employed. The dose-length product was 785.02 mGy-cm. COMPARISON: Foot radiographs dated 02/04/2025 FINDINGS: Deep ulceration plantar to the heel. There appears be a fluid attenuation sinus tract extending deeper to a gas and fluid containing abscess which extends along the medial/plantar margin of the posterior tuberosity of the calcaneus where there is a large cortical erosion with ostial lysis consistent with osteoarthritis. The abscess extends over the region of the avulsed footplate of the Achilles tendon0 along the cephalad margin of the posterior tuberosity where there are some additional less advanced cortical erosion also consistent with osteitis. There are some calcaneal bone fragments remaining attached to the avulsed distal aspect of the Achilles tendon which is retracted 7 cm proximally. There is multilevel foci of gas tracking cephalad along and within the distal gastric emptying is muscle and the aponeurosis between the gastrocnemius and soleus muscles. This extends the cephalad margin of the field of imaging which lies 28 cm proximal to the level of the tibiotalar joint line. Polyarticular osteoarthritis, mild to moderate severity at the tarsal metatarsal joints and mild at the ankle and many of the remaining joints in the foot. Physiologic amount of fluid at the ankle joint. IMPRESSION: 1. Deep skin ulceration plantar to the calcaneus with abscess over the plantar to the cephalad aspect of the posterior tuberosity of the calcaneus with underlying osteomyelitis of the posterior calcaneus. 2. Likely secondary pathologic avulsion fracture with 7 cm proximal retraction of the Achilles tendon with metastasis bone fragments. 3. Soft tissue gas extending cephalad along the Achilles tendon, gastrocnemius muscle and aponeurosis between the gastrocnemius and soleus muscles which could represent tracking indication of gas from the ulceration but also raises concern for necrotizing fasciitis which is ultimately a clinical diagnosis. Dr. Yu discussed these findings with Dr. Hernadez at 1:15 PM. Reviewed, dictated and finalized at location A. IMPRESSION: 1. Deep skin ulceration plantar to the calcaneus with abscess over the plantar to the cephalad aspect of the posterior tuberosity of the calcaneus with underl chele osteomyelitis of the posterior calcaneus. 2. Likely secondary pathologic avulsion fracture with 7 cm proximal retraction of the Achilles tendon with metastasis bone fragments. 3. Soft tissue gas extending cephalad along the Achilles tendon, gastrocnemius muscle and aponeurosis between the gastrocnemius and soleus muscles which could represent tracking indication of gas from the ulceration but also raises jessy rn for necrotizing fasciitis which is ultimately a clinical diagnosis. Dr. Ihsan orr discussed these findings with Dr. Hernadez at 1:15 PM.
[2025-02-05] MEDS: SODIUM CHLORIDE 0.9% IV 1,000 ML 999 ML IV CONT (11:33)
[2025-02-05 11:34] LABS: Hematocrit 31.2 % (42.0-52.0); Hemoglobin 10.2 g/dL (14.0-18.0); Immature Granulocyte Percent A 0.4 % (0-0.5); Lymphocytes Absolute Auto 0.93 K/mm3 (0.9-3.2); Mean Corpuscular HGB Conc 32.7 g/dl (32-36); Mean Corpuscular Hemoglobin 29.6 pg (26-34); Mean Corpuscular Volume 90.4 fl (80-100); Nucleated Red Blood Cells Absolute Auto 0.000 K/mm3 (0.0-0.012); Nucleated Red Blood Cells Perc 0.0 % (0.0-0.2); Platelet Count Result 326 k/mm3 (150-375); Red Blood Count 3.45 M/mm3 (4.6-6.20); White Blood Count 11.9 K/mm3 (4.5-10.0)
[2025-02-05 11:47] LABS: Alanine Aminotransferase 15 U/L (6-50); Albumin Level 3.5 g/dL (3.5-5.1); Alkaline Phosphatase 87 U/L (38-126); Anion Gap 12 mmol/L (4-12); Aspartate Amino Transferase 25 U/L (17-59); Bilirubin,Total 1.9 mg/dL (0.2-1.3); Blood Urea Nitrogen 18 mg/dL (9-20); Calcium 9.0 mg/dL (8.4-10.2); Carbon Dioxide 25 mmol/L (22-30); Chloride 95 mmol/L (98-107); Estimated CRCL calculation 86 ml/min; Estimated Glomerular Filt Rate > 60; Glucose 136 mg/dL (65-110); Potassium 4.7 mmol/L (3.4-5.0); Sodium 132 mmol/L (137-145); Total Protein 7.5 g/dL (6.3-8.2)
[2025-02-05] MEDS: CEFEPIME 2 GM in SODIUM CHLORIDE 0.9% IV 50 ML 100 ML IVPB (13:05)
[2025-02-05] MEDS: metroNIDAZOLE 500 MG/ISO 100ML 500 MG/100 ML BAG 100 MG IVPB (13:06)
--- NOTE | 2025-02-05 13:28 | ED.GENADULT ---
HPI - General Adult General Chief complaint: Extremity Problem,Nontraumatic Stated complaint: ?osteo L foot Time Seen by Provider: 02/05/25 10:54 History of Present Illness HPI narrative: This is a 69-year-old male with a chronic diabetic foot infection with osteomyelitis was left heel presenting with increased pain swelling and systemic signs of illness such as nausea, generalized weakness/fatigue. Patient says is been getting steadily worse over the last week. He was seen here yesterday and left AMA. He then came back this morning for re-evaluation. Patient's wound is treated by Dr. Calvo. Unfortunately the patient has severe congestive heart failure with an EF of 15-20% and diastolic dysfunction and is not a candidate for surgery at our hospital until he has a defibrillator paced. Related Data Home Medications ?Medication ?Instructions ?Recorded ?Confirmed ?Last Taken ?Type acetaminophen 500 mg tablet 1,000 mg PO Q6H PRN pain 08/27/24 12/31/24 10/03/24 History (Acetaminophen Extra Strength) meclizine 50 mg tablet (Antivert) 50 mg PO BID 08/27/24 12/31/24 12/10/24 History Allergies Allergy/AdvReac Type Severity Reaction Status Date / Time No Known Allergies Allergy Verified 02/04/25 14:39 [facility] Past Medical History Medical History Type 2 diabetes mellitus with foot ulcer Calf pain Non-pressure chronic ulcer of other part of right foot with necrosis of muscle Heel ulcer due to DM History of colon cancer 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 GERD (gastroesophageal reflux disease) Carpal tunnel syndrome Surgical History Surgical History History of incision and drainage Complex I&D Right foot infected diabetic foot ulcer measuring approximately 5x4cm. on 12/19/21 Status post debridement (12/2020) Right foot abscess, osteomyelitis. History of coronary artery stent placement History of cardiac catheterization History of colonoscopy with polypectomy History of repair of hiatal hernia (2001) History of coronary artery bypass graft History of carpal tunnel release History of arthroscopy of right knee History of hernia repair (2019) Finger amputee Right 2nd finger secondary to crush injury. History of right hemicolectomy with ileocolic anastomsis in 2019 Family History Family History Sibling Family history of malignant neoplasm Father Family history of chronic obstructive pulmonary disease Hypertension Heart disease Mother Hypertension Cancer Sibling Cancer Sibling Cancer Sibling Cancer Social History Social History Social History: The patient is and lives with his and 1 son in [place]. They have 4 children. 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 No alcohol or illicit substance abuse. Surrogate medical decision maker: Tash Orantes, spouse. Code status: Full code. Years smoked: 10 Smoking status: Former smoker Tobacco type: cigarettes Alcohol intake: never Substance use: never Substance use type: does not use Do You Feel Safe in your Home?: Yes Lack of Transportation: No Lack of Food: Never True Current Housing: I Have Housing Concerned About Future Housing: No Difficulty Paying Gas/Electric Bills: No Difficulty Paying for Meds: No Currently Unemployed: No Education: High School Diploma/GED Difficulty w/ Childcare or Family Care: No Living arrangements: with family Occupation/Education: retired Gender identity (if verbalized by the patient): Male Sexual Orientation (if Verbalized by the Patient): Straight or Heterosexual Spiritual care concerns: No Exam Narrative: APPEARANCE: No apparent distress. Head: atraumatic. EYES: EOMI, NOSE: Atraumatic NECK: Trachea midline RESPIRATORY: No increased rate of breathing CARDIOVASCULAR: RRR, ABDOMINAL: Non-distended MUSCULOSKELETAl: Tenderness over the left casts calf NEURO: Alert. Moving 4/4 extremities SKIN:: Large plantar ulcer over the heel with serous discharge. Erythema over the patient's foot in up the calf. PSYCHIATRIC: Normal affect Course Vital Signs Vital signs: Vital Signs Temperature 97.9 F 02/05/25 10:41 Pulse Rate 111 H 02/05/25 10:41 Respiratory Rate 20 02/05/25 10:41 Blood Pressure 84/56 L 02/05/25 10:41 Pulse Oximetry 100 02/05/25 10:41 Temperature 97.9 F 02/05/25 10:41 Pulse Rate 99 02/05/25 13:00 Respiratory Rate 17 02/05/25 13:00 Blood Pressure 151/81 H 02/05/25 13:00 Pulse Oximetry 100 02/05/25 13:00 Medical Decision Making MDM Narrative Medical decision making narrative: -Course: 69-year-old male presenting with a diabetic foot ulcer. Patient was seen yesterday and left AMA. He was restarted on antibiotics and blood work repeated. Case was discussed with Dr. Calvo. patient cannot undergo surgery at our hospital due to poor heart function. He requested a CT of extremity. CT showed gas tracking up the patient's Achilles tendon into his calf as well as a pathologic fracture of the patient's calcaneus. Differential includes air tracking from open wound versus necrotizing fasciitis. Patient's antibiotics were switched for our diabetic foot ulcer to necrotizing fasciitis. [facility] transfer line was contacted. Patient will be transferred for further evaluation and treatment. Imaging was reviewed by [facility] is general surgeon. They would like the patient transferred emergently ER to ER for surgical evaluation. Patient will be transferred via ALS ambulance. Accepted by Dr. Denton in the ED. Vital Signs Vital Signs: Vital Signs Temperature 97.9 F 02/05/25 10:41 Pulse Rate 111 H 02/05/25 10:41 Respiratory Rate 20 02/05/25 10:41 Blood Pressure 84/56 L 02/05/25 10:41 Pulse Oximetry 100 02/05/25 10:41 Temperature 97.9 F 02/05/25 10:41 Pulse Rate 99 02/05/25 13:00 Respiratory Rate 17 02/05/25 13:00 Blood Pressure 151/81 H 02/05/25 13:00 Pulse Oximetry 100 02/05/25 13:00 Lab Data 02/05/25 11:24 02/05/25 11:24 Labs: Lab Results 02/05/25 Range/Units 11:24 WBC 11.9 H (4.5-10.0) K/mm3 RBC 3.45 L (4.6-6.20) M/mm3 Hgb 10.2 L (14.0-18.0) g/dL Hct 31.2 L (42.0-52.0) % MCV 90.4 (80-100) fl MCH 29.6 (26-34) pg MCHC 32.7 (32-36) g/dl RDW 12.9 (11.5-14.5) % Plt Count 326 (150-375) k/mm3 MPV 8.8 (7.4-10.4) fl Immature Gran % (Auto) 0.4 (0-0.5) % Neut % (Auto) 81.7 H (45.5-73.1) % Lymph % (Auto) 7.8 L (18.3-44.2) % Hartley % (Auto) 9.1 H (2.6-8.5) % Eos % (Auto) 0.6 (0-4.4) % Baso % (Auto) 0.4 (0.2-1.2) % Lymph # (Auto) 0.93 (0.9-3.2) K/mm3 Hartley # (Auto) 1.1 H (0.1-0.6) K/mm3 Eos # (Auto) 0.1 (0-0.3) K/mm3 Baso # (Auto) 0.1 (0.0-0.1) K/mm3 Abs Immat Gran (auto) 0.05 H (0.00-0.031) K/mm3 Absolute Neuts (auto) 9.7 H (1.3-6.7) K/mm3 Absolute Nucleated RBC 0.000 (0.0-0.012) K/mm3 Nucleated RBC % 0.0 (0.0-0.2) % Sodium 132 L (137-145) mmol/L Potassium 4.7 (3.4-5.0) mmol/L Chloride 95 L (98-107) mmol/L Carbon Dioxide 25 (22-30) mmol/L Anion Gap 12 (4-12) mmol/L BUN 18 (9-20) mg/dL Creatinine 0.75 (0.7-1.3) mg/dL Estim Creat Clear Calc 86 ml/min Estimated GFR > 60 (59 - ) Glucose 136 H (65-110) mg/dL Lactic Acid 1.6 (0.7-2.0) mmol/L Calcium 9.0 (8.4-10.2) mg/dL Total Bilirubin 1.9 H (0.2-1.3) mg/dL AST 25 (17-59) U/L ALT 15 (6-50) U/L Alkaline Phosphatase 87 (38-126) U/L Total Protein 7.5 (6.3-8.2) g/dL Albumin 3.5 (3.5-5.1) g/dL Discharge Plan Discharge Clinical Impression: Diabetic foot ulcer, Necrotizing soft tissue infection Patient Disposition: Acute Care Hospital Condition: Stable Patient Language: Slovenian Prescriptions: No Action metformin 500 mg tablet 500 mg PO BID Qty: 180 1RF meclizine [Antivert] 50 mg tablet 50 mg PO BID acetaminophen [Acetaminophen Extra Strength] 500 mg tablet 1,000 mg PO Q6H PRN (Reason: pain) carvedilol [Coreg] 12.5 mg Tablet 12.5 mg PO Q12HR Qty: 60 0RF amoxicillin-pot clavulanate 875-125 mg tablet 1 tablet PO Q12H 14 Days Qty: 28 0RF Jardiance 10 mg tablet 10 mg PO DAILY 30 Days Qty: 30 6RF (DME) Dexcom G7 Sensor Device See Rx Instructions .Route Qty: 3 5RF Rx Instructions: Change sensor every 10 days (DME) Dexcom G7 Benefits Manager Misc See Rx Instructions .Route Qty: 1 0RF Rx Instructions: As directed rosuvastatin 5 mg tablet 5 mg PO DAILY Qty: 90 1RF insulin glargine [Lantus Solostar U-100 Insulin] 100 unit/mL (3 mL) insulin pen 18 unit subcut QPM Qty: 15 3RF sulfamethoxazole-trimethoprim [Bactrim DS] 800-160 mg tablet 1 tablet PO Q12H Qty: 30 1RF escitalopram oxalate 10 mg tablet 10 mg PO DAILY Qty: 90 1RF sacubitril-valsartan [Entresto] 24-26 mg tablet 1 tablet PO Q12HR Qty: 60 0RF spironolactone 25 mg tablet 25 mg PO QAM Qty: 90 0RF Follow-up/Referrals: Ashwin Lawler MD [Primary Care Provider, Family Practice]
[2025-02-05] MEDS: VANCOMYCIN 2,000 MG/NS 500 ML BAG 250 MG IVPB (13:56)
--- OUTSIDE RECORDS SUMMARY | 2025-02-05 14:26 | XMS_ITS | Encounter Summary ---
Author Organization [facility] Address [address] [place] [address] Care Team Providers Care Oracle Fusion Middleware Developer Name Role Phone Unavailable Primary Care Provider Unavailabl e Encounter Details Date Type Department Care Team (Late st Contact Info) Description 09/06/2006 Outpatient Historical [facility] ([facility]) [address] 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
--- OUTSIDE RECORDS SUMMARY | 2025-02-05 14:26 | XMS_ITS | Clinical Summary ---
Author Organization [facility] [employer] Address [address] [facility] [place] [address] Care Team Providers Care Roller Varnisher Name Role Phone Ashwin Lawler MD Primary Care Provider [phone] Source Comments [facility],non-owned Affiliates and Associated Physician Practices is amultiple site organization consisting of ambulatory clinics and hospital sitesin [place], [place], [place] and [place]. This disclosure is being madepursuant to the Care Everywhere program and may not contain all information available regarding this patient. Last updated 18.[facility] [employer] Allergies No known active allergies Medications * [...] place to sleep or slept in a snf (including now)? 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
--- OUTSIDE RECORDS SUMMARY | 2025-02-05 14:26 | XMS_ITS | Clinical Summary ---
Author Organization [facility] Address [address] [place] [address] Care Team Providers Care Bow Maker Gift Wrapping Name Role Phone Ashwin Lawler MD Primary Care Provider [phone] Allergies No known active allergies Medications metFORMIN [...] stent 04/05/2023 Coronary artery disease invo lving tyonek coronary artery of ty[place] heart without angina pectoris 08/24/2022 Cardiomyopathy, ischemic 08/24/2022 Encounters Date Type Department Care Team Description 01/21/2025 Telephone [facility] [address] [facility] 8th [place] [address] [place] [address] Lebron Guerra MD PhD 01/14/2025 Telephone [facility] [address] [facility] 8th [place] [address] [place] [phone] Lebron Guerra MD PhD 01/09/2025 Telephone [facility] Cardiology [address] [place] [address] [place] [phone] Patric Thomas MD Hypotension; Med Refill; Med Management 01/03/2025 2:30 PM CDT Office Visit [facility] [address] [facility] [address] [place] [address] Lebron Guerra MD PhD Cardiomyopathy, ischemic (Primary Dx) 01/03/2025 Results Follow-Up [facility] [address] [facility] [address] [place] [address] Lebron Guerra MD PhD ECG 12 lead 12/24/2024 Orders Only [facility] Cardiology [address] [place] [phone] ProviderTanika MD 12/17/2024 Telephone [facility] [address] 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 Gender Identity Not on file Sexual Orientation Not on file Obstetrics History Last Filed Vital Signs Vital Sign Reading Time Taken Comments Blood Pressure 82/46 01/03/2025 2:53 PM CDT Pulse 75 01/03/2025 2:53 PM CDT Temperature 36.7 C (98.1 F) 03/10/2023 7:38 AM WANIGAN CLERK Respiratory Rate 16 12/09/2024 10:00 AM CDT Oxygen Saturation 99% 01/03/2025 2:53 PM CDT Inhaled Oxygen Concentration - - Weight 77.1 kg (170 lb) 01/03/2025 2:53 PM CDT Height 182.9 cm (6') 12/09/2024 10:00 AM CDT Body Mass Index 23.06 12/09/2024 10:00 AM CDT Plan of Treatment Upcoming Encounters Date Type Department Care Team (Latest Contact Info) Description 05/05/2025 8:30 AM WANIGAN CLERK Hospital Encounter [facility] Electrophysiology Lab 1 [place] [address] Lebron Guerra MD PhD [address] [employer] [address] [address] Chronic systolic heart failure (HCC) 05/05/2025 8:30 AM WANIGAN CLERK - 05/05/2025 11:17 AM WANIGAN CLERK Surgery [facility] Electrophysiology Lab 1 [place] [address] Lebron Guerra MD PhD [address] [employer] [address] [address] INSERT/REPLACE IMPLANTABLE CARDIOVERTER-DEFIB RILLATOR (ICD) dual chamber [address] Health Maintenance Due Date Last Done Comments [...] Wilson RN Medical Devices Implanted Type Area Tangled Yarn Worker Device Identifier Shelf Expiration Date Model / Serial / Lot [employer] Osmar Stent Drug Eluting S Megatron Us Mr [id number] - S0 - [id number] Implanted:Qty : 1 on 03/10/2023 by Sal Erazo MD at [facility] Stent Left: Circumflex Coronary Artery [employer] Osmar 10/30/2024 [id number] / 0 / [id number] [employer] Jumia Angio-Seal Vip 6fr Closere Device [id number] - S0 - [id number] Implanted:Qty : 1 on 03/10/2023 by Sal Erazo MD at [facility] Vascular Closure Device Right: Femoral [employer] Osmar 09/22/2023 [id number] / 0 / [id number] Procedures Procedure Name Priority Date/Time Associated Diagnosis Comments ECG 12-LEAD Routine 01/03/2025 2:57 PM CDT Cardiomyopathy, ischemic POCT LIPID PANEL Routine 12/09/2024 9:59 AM CDT Coronary artery disease involving tyonek coronary artery of tyonek heart without angina pectoris CT CHEST ABDOMEN [...] David Thibodeaux MD on 04/08/2019 3:49 PM WANIGAN CLERK Follow up thyroid FNA completed 02-20-19 (scanned [...] MEDICARE [place] [id number] [employer] MEDICARE PPO Advance Directives For more information, please contact: [phone] * Full Code (Latest Code Status on File) Date Activated Date Inactivated Comments 03/10/2023 10:16 AM 03/10/2023 5:27 PM Care Teams Bow Maker Gift Wrapping Relationship Specialty Start Date End Date Ashwin Lawler MD [address] [place], [place] [id number] PCP - General Family Medicine 08/21/22
--- OUTSIDE RECORDS SUMMARY | 2025-02-05 14:26 | XMS_ITS | Encounter Summary ---
Author Organization [employer] Address [address] [place] [address] Care Team Providers Care Capacity Planning Engineer Name Role Phone Unavailable Primary Care Provider Unavailabl e Encounter Details Date Type Department Care Team (Latest Contact Info) Description 06/06/2005 Inpatient Historical HIS PATIENT IN A BED Patric Thomas MD [address] [address] [facility] FIRST EPISODE CARE ([facility]) (Primary Dx) Social History Tobacco Use Types Packs/Day Years Used Date Smoking Tobacco: Never Assessed Sex and Gender Information Value Date Recorded Sex Assigned at Not on file Legal Sex Male 4:42 AM DEMAND PLANNING MANAGER Gender Identity Not on file Sexual Orientation Not on file documented as of this encounter Plan of Treatment Not on file documented as of this encounter Procedures Procedure Name Priority Date/Time Associated Diagnosis Comments POC GLUCOSE Routine 06/09/2005 6:58 AM DEMAND PLANNING MANAGER POC GLUCOSE Routine 06/08/2005 10:11 PM DEMAND PLANNING MANAGER POC GLUCOSE Routine 06/08/2005 4:29 PM DEMAND PLANNING MANAGER POC GLUCOSE Routine 06/08/2005 11:22 AM DEMAND PLANNING MANAGER POC GLUCOSE Routine 06/08/2005 6:54 AM DEMAND PLANNING MANAGER CBC WITH DIFFERENTIAL Routine 06/08/2005 5:05 AM DEMAND PLANNING MANAGER CBC WITH DIFFERENTIAL Routine 06/08/2005 5:05 AM DEMAND PLANNING MANAGER MAGNESIUM LEVEL Routine 06/08/2005 5:05 AM DEMAND PLANNING MANAGER BASIC METABOLIC PANEL Routine 06/08/2005 5:05 AM DEMAND PLANNING MANAGER POC GLUCOSE Routine 06/07/2005 9:14 PM DEMAND PLANNING MANAGER CBC WITH DIFFERENTIAL Routine 06/07/2005 5:12 PM DEMAND PLANNING MANAGER CBC WITH DIFFERENTIAL Routine 06/07/2005 5:12 PM DEMAND PLANNING MANAGER POC GLUCOSE Routine 06/07/2005 4:33 PM DEMAND PLANNING MANAGER POC GLUCOSE Routine 06/07/2005 11:44 AM DEMAND PLANNING MANAGER CBC WITH DIFFERENTIAL Routine 06/07/2005 5:36 AM DEMAND PLANNING MANAGER CBC WITH DIFFERENTIAL Routine 06/07/2005 5:36 AM DEMAND PLANNING MANAGER BASIC METABOLIC PANEL Routine 06/07/2005 5:36 AM DEMAND PLANNING MANAGER POC GLUCOSE Routine 06/07/2005 5:31 AM DEMAND PLANNING MANAGER CK TOTAL, RELATIVE INDEX Routine 06/07/2005 4:10 AM DEMAND PLANNING MANAGER CKMB W/REFLEX CK Routine 06/07/2005 4:10 AM DEMAND PLANNING MANAGER TROPONIN (W/REFLEX CKMB/CK) Routine 06/07/2005 4:10 AM DEMAND PLANNING MANAGER MAGNESIUM LEVEL Routine 06/07/2005 4:10 AM DEMAND PLANNING MANAGER POC GLUCOSE Routine 06/07/2005 12:40 AM DEMAND PLANNING MANAGER CK TOTAL, RELATIVE INDEX Routine 06/06/2005 11:30 PM DEMAND PLANNING MANAGER CKMB W/REFLEX CK Routine 06/06/2005 11:3 0 PM DEMAND PLANNING MANAGER CBC WITH DIFFERENTIAL Routine 06/06/2005 11:30 PM DEMAND PLANNING MANAGER CBC WITH DIFFERENTIAL Routine 06/06/2005 11:30 PM DEMAND PLANNING MANAGER MAGNESIUM LEVEL Routine 06/06/2005 11:30 PM DEMAND PLANNING MANAGER LIPID PANEL Routine 06/06/2005 11:30 PM DEMAND PLANNING MANAGER COMPREHENSIVE METABOLIC PANEL Routine 06/06/2005 11:30 PM DEMAND PLANNING MANAGER POC GLUCOSE Routine 06/06/2005 8:43 PM DEMAND PLANNING MANAGER documented in this encounter Results * (ABNORMAL) POC GLUCOSE (06/09/2005 6:58 AM DEMAND PLANNING MANAGER) GLUCOSE POC 214(H) 65 - 109 mg/dL INTERFACE SYSTEM 06/09/2005 6:58 AM DEMAND PLANNING MANAGER Patric Thomas MD POINT OF CARE TESTING Fin al Result Performing Organization Address [facility] Phone Number INTERFACE SYSTEM Refer to clinic/hospital department * (ABNORMAL) POC GLUCOSE (06/08/2005 10:11 PM DEMAND PLANNING MANAGER) GLUCOSE POC 262(H) 65 - 109 mg/dL INTERFACE SYSTEM 06/08/2005 10:1 1 PM DEMAND PLANNING MANAGER Patric Thomas MD POINT OF CARE TESTING Fin al Result Performing Organization Address [facility] Phone Number INTERFACE SYSTEM Refer to clinic/hospital department * (ABNORMAL) POC GLUCOSE (06/08/2005 4:29 PM DEMAND PLANNING MANAGER) GLUCOSE POC 268(H) 65 - 109 mg/dL INTERFACE SYSTEM 06/08/2005 4:29 PM DEMAND PLANNING MANAGER Patric Thomas MD POINT OF CARE TESTING Fin al Result Performing Organization Address [facility] de Phone Number INTERFACE SYSTEM Refer to clinic/hospital department * (ABNORMAL) POC GLUCOSE (06/08/2005 11:22 AM DEMAND PLANNING MANAGER) GLUCOSE POC 253(H) 65 - 109 mg/dL INTERFACE SYSTEM 06/08/2005 11:2 2 AM DEMAND PLANNING MANAGER Patric Thomas MD POINT OF CARE TESTING Fin al Result Performing Organization Address [facility] de Phone Number INTERFACE SYSTEM Refer to clinic/hospital department * (ABNORMAL) POC GLUCOSE (06/08/2005 6:54 AM DEMAND PLANNING MANAGER) GLUCOSE POC 214(H) 65 - 109 mg/dL INTERFACE SYSTEM 06/08/2005 6:54 AM DEMAND PLANNING MANAGER Patric Thomas MD POINT OF CARE TESTING Fin al Result Performing Organization Address [facility] de Phone Number INTERFACE SYSTEM Refer to clinic/hospital department * CBC WITH DIFFERENTIAL (06/08/2005 5:05 AM DEMAND PLANNING MANAGER) NEUTROPHILS 57 45 - 70 % INTERFAC [...] 0.20 K/uL INTERFACE SYSTEM 06/08/2005 5:05 AM DEMAND PLANNING MANAGER Patric Thomas MD HEMATOLOGY ORDERABLES Fin al Result Performing Organization Address [facility] de Phone Number INTERFACE SYSTEM Refer to clinic/hospital department * CBC WITH DIFFERENTIAL (06/08/2005 5:05 AM DEMAND PLANNING MANAGER) WBC 7.5 4.0 - 9.8 K/uL INTERFACE [...] 12.4 fL INTERFACE SYSTEM 06/08/2005 5:05 AM DEMAND PLANNING MANAGER Patric Thomas MD HEMATOLOGY ORDERABLES Fin al Result Performing Organization Address [facility] Phone Number INTERFACE SYSTEM Refer to clinic/hospital department * MAGNESIUM LEVEL (06/08/2005 5:05 AM DEMAND PLANNING MANAGER) MAGNESIUM 1.9 1.5 - 2.5 mg/dL INTERFACE SYSTEM 06/08/2005 5:05 AM DEMAND PLANNING MANAGER Patric Thomas MD CHEMISTRY ORDERABLES Freya l Result Performing Organization Address [facility] Phone Number INTERFACE SYSTEM Refer to clinic/hospital department * (ABNORMAL) BASIC METABOLIC PANEL (06/08/2005 5:05 AM DEMAND PLANNING MANAGER) GLUCOSE 218(H) 65 - 109 mg/dL INTERFACE [...] 30 mmol/L INTERFACE SYSTEM 06/08/2005 5:05 AM DEMAND PLANNING MANAGER Patric Thomas MD CHEMISTRY ORDERABLES Freya l Result Performing Organization Address [facility] Phone Number INTERFACE SYSTEM Refer to clinic/hospital department * (ABNORMAL) POC GLUCOSE (06/07/2005 9:14 PM DEMAND PLANNING MANAGER) GLUCOSE POC 226(H) 65 - 109 mg/dL INTERFACE SYSTEM 06/07/2005 9:14 PM DEMAND PLANNING MANAGER Patric Thomas MD POINT OF CARE TESTING Fin al Result Performing Organization Address [facility] de Phone Number INTERFACE SYSTEM Refer to clinic/hospital department * CBC WITH DIFFERENTIAL (06/07/2005 5:12 PM DEMAND PLANNING MANAGER) NEUTROPHILS 64 45 - 70 % INTERFAC [...] 0.20 K/uL INTERFACE SYSTEM 06/07/2005 5:12 PM DEMAND PLANNING MANAGER Eric Carter HEMATOLOGY ORDERABLES Final Resu lt Performing Organization Address [facility] Phone Number INTERFACE SYSTEM Refer to clinic/hospital department * (ABNORMAL) CBC WITH DIFFERENTIAL (06/07/2005 5:12 PM DEMAND PLANNING MANAGER) WBC 8.5 4.0 - 9.8 K/uL INTERFACE [...] 12.4 fL INTERFACE SYSTEM 06/07/2005 5:12 PM DEMAND PLANNING MANAGER Eric Carter HEMATOLOGY ORDERABLES Final Resu lt INTERFACE SYSTEM Refer to clinic/hospital department * (ABNORMAL) POC GLUCOSE (06/07/2005 4:33 PM DEMAND PLANNING MANAGER) GLUCOSE POC 218(H) 65 - 109 mg/dL INTERFACE SYSTEM 06/07/2005 4:33 PM DEMAND PLANNING MANAGER Patric Thomas MD POINT OF CARE TESTING Fin al Result Performing Organization Address [facility] Co de Phone Number INTERFACE SYSTEM Refer to clinic/hospital department * (ABNORMAL) POC GLUCOSE (06/07/2005 11:44 AM DEMAND PLANNING MANAGER) GLUCOSE POC 271(H) 65 - 109 mg/dL INTERFACE SYSTEM 06/07/2005 11:4 4 AM DEMAND PLANNING MANAGER Patric Thomas MD POINT OF CARE TESTING Fin al Result Performing Organization Address [facility] Co de Phone Number INTERFACE SYSTEM Refer to clinic/hospital department * (ABNORMAL) CBC WITH DIFFERENTIAL (06/07/2005 5:36 AM DEMAND PLANNING MANAGER) NEUTROPHILS 73(H) 45 - 70 % INTERFAC [...] 0.20 K/uL INTERFACE SYSTEM 06/07/2005 5:36 AM DEMAND PLANNING MANAGER us Carmina Dick MD HEMATOLOGY ORDERABLES Final Resu lt INTERFACE SYSTEM Refer to clinic/hospital department * (ABNORMAL) CBC WITH DIFFERENTIAL (06/07/2005 5:36 AM DEMAND PLANNING MANAGER) WBC 9.7 4.0 - 9.8 K/uL INTERFACE [...] 12.4 fL INTERFACE SYSTEM 06/07/2005 5:36 AM DEMAND PLANNING MANAGER us Carmina Dick MD HEMATOLOGY ORDERABLES Final Resu Performing Organization Address [facility] Phone Number INTERFACE SYSTEM Refer to clinic/hospital department * (ABNORMAL) BASIC METABOLIC PANEL (06/07/2005 5:36 AM DEMAND PLANNING MANAGER) GLUCOSE 194(H) 65 - 109 mg/dL INTERFACE [...] 30 mmol/L INTERFACE SYSTEM 06/07/2005 5:36 AM DEMAND PLANNING MANAGER us Carmina Dick MD CHEMISTRY ORDERABLES Final Resul t Performing Organization Address [facility] Phone Number INTERFACE SYSTEM Refer to clinic/hospital department * (ABNORMAL) POC GLUCOSE (06/07/2005 5:31 AM DEMAND PLANNING MANAGER) GLUCOSE POC 197(H) 65 - 109 mg/dL INTERFACE SYSTEM 06/07/2005 5:31 AM DEMAND PLANNING MANAGER Patric Thomas MD POINT OF CARE TESTING Fin al Result Performing Organization Address [facility] Phone Number INTERFACE SYSTEM Refer to clinic/hospital department * (ABNORMAL) CK TOTAL, RELATIVE INDEX (06/07/2005 4:10 AM DEMAND PLANNING MANAGER) CK 2,552(H) 10 - 170 U/L INTERFACE SYSTEM CARDIAC RELATIVE INDEX 10.2(H) <=4.0 INTERFACE SYSTEM 06/07/2005 4:10 AM DEMAND PLANNING MANAGER Carmina Dick MD CHEMISTRY ORDERABLES Final Resul t Performing Organization Address [facility] Phone Number INTERFACE SYSTEM Refer to clinic/hospital department * (ABNORMAL) CKMB W/REFLEX CK (06/07/2005 4:10 AM DEMAND PLANNING MANAGER) CKMB 260.1(AA) <=6.7 ng/mL INTERFACE SYSTEM Comment:Results called to alka at 06/07/2005 5:15 AM and read back verified. CKMB INTERP See Below INTERFAC E SYSTEM Comment:Elevated CKMB,Consis tent with Myocardial Injury. 06/07/2005 4:10 AM DEMAND PLANNING MANAGER Carmina Dick MD CHEMISTRY ORDERABLES Final Resul t Performing Organization Address [facility] Phone Number INTERFACE SYSTEM Refer to clinic/hospital department * MAGNESIUM LEVEL (06/07/2005 4:10 AM DEMAND PLANNING MANAGER) MAGNESIUM 1.8 1.5 - 2.5 mg/dL INTERFACE SYSTEM 06/07/2005 4:10 AM DEMAND PLANNING MANAGER Patric Thomas MD CHEMISTRY ORDERABLES Freya l Result Performing Organization Address [facility] Phone Number INTERFACE SYSTEM Refer to clinic/hospital department * (ABNORMAL) TROPONIN (W/REFLEX CKMB/CK) (06/07/2005 4:10 AM DEMAND PLANNING MANAGER) TROPONIN T 5.35(AA) <=0.03 ng/mL INTERFACE SYSTEM Comment:Results called to Lyndsay fernandes at 06/07/2005 4:55 AM and read back verified. TROPONIN T INTERP See Below INTERFACE SYSTEM Comment:Elevated Troponin-T, Consistent with Myocardial Injury 06/07/2005 4:10 AM DEMAND PLANNING MANAGER Carmina Dick MD CHEMISTRY ORDERABLES Final Resul t Performing Organization Address [facility] Phone Number INTERFACE SYSTEM Refer to clinic/hospital department * (ABNORMAL) POC GLUCOSE (06/07/2005 12:40 AM DEMAND PLANNING MANAGER) GLUCOSE POC 226(H) 65 - 109 mg/dL INTERFACE SYSTEM 06/07/2005 12:4 0 AM DEMAND PLANNING MANAGER Patric Thomas MD POINT OF CARE TESTING Fin al Result Performing Organization Address [facility] Phone Number INTERFACE SYSTEM Refer to clinic/hospital department * (ABNORMAL) CK TOTAL, RELATIVE INDEX (06/06/2005 11:30 PM DEMAND PLANNING MANAGER) CK 3,063(H) 10 - 170 U/L INTERFACE SYSTEM CARDIAC RELATIVE INDEX 12.1(H) <=4.0 INTERFACE SYSTEM 06/06/2005 11:3 0 PM DEMAND PLANNING MANAGER Carmina Dick MD CHEMISTRY ORDERABLES Final Resul t Performing Organization Address [facility] Phone Number INTERFACE SYSTEM Refer to clinic/hospital department * (ABNORMAL) CKMB W/REFLEX CK (06/06/2005 11:30 PM DEMAND PLANNING MANAGER) CKMB 369.5(AA) <=6.7 ng/mL INTERFACE SYSTEM Comment: Results called to Hiwot at 06/07/2005 7:19 AM and read back verified. Previous specimen used; approved by floor. , (2330 from 06/06/05) CKMB INTERP See Below INTERFAC E SYSTEM Comment:Elevated CKMB,Consis tent with Myocardial Injury. 06/06/2005 11:3 0 PM DEMAND PLANNING MANAGER Carmina Dick MD CHEMISTRY ORDERABLES Final Resul t Performing Organization Address [facility] Phone Number INTERFACE SYSTEM Refer to clinic/hospital department * MAGNESIUM LEVEL (06/06/2005 11:30 PM DEMAND PLANNING MANAGER) MAGNESIUM 1.9 1.5 - 2.5 mg/dL INTERFACE SYSTEM 06/06/2005 11:3 0 PM DEMAND PLANNING MANAGER Patric Thomas MD CHEMISTRY ORDERABLES Freya l Result Performing Organization Address [facility] Phone Number INTERFACE SYSTEM Refer to clinic/hospital department * (ABNORMAL) CBC WITH DIFFERENTIAL (06/06/2005 11:30 PM DEMAND PLANNING MANAGER) NEUTROPHILS 83(H) 45 - 70 % INTERFAC [...] K/uL INTERFACE SYSTEM 06/06/2005 11:3 0 PM DEMAND PLANNING MANAGER Patric Thomas MD HEMATOLOGY ORDERABLES Fin al Result Performing Organization Address [facility] Phone Number INTERFACE SYSTEM Refer to clinic/hospital department * (ABNORMAL) CBC WITH DIFFERENTIAL (06/06/2005 11:30 PM DEMAND PLANNING MANAGER) WBC 14.5(H) 4.0 - 9.8 K/uL INTERFACE [...] fL INTERFACE SYSTEM 06/06/2005 11:3 0 PM DEMAND PLANNING MANAGER Patric Thomas MD HEMATOLOGY ORDERABLES Fin al Result INTERFACE SYSTEM Refer to clinic/hospital department * LIPID PANEL (06/06/2005 11:30 PM DEMAND PLANNING MANAGER) Pathologist [facility] LIPID PANEL COMMENT See below INTERFACE SYSTEM [...] for risk classifications. 06/06/2005 11:3 0 PM DEMAND PLANNING MANAGER us Carmina Dick MD CHEMISTRY ORDERABLES Final Resul t Performing Organization Address [facility] Phone Number INTERFACE SYSTEM Refer to clinic/hospital department * (ABNORMAL) COMPREHENSIVE METABOLIC PANEL (06/06/2005 11:30 PM DEMAND PLANNING MANAGER) GLUCOSE 225(H) 65 - 109 mg/dL INTERFACE [...] mmol/L INTERFACE SYSTEM 06/06/2005 11:3 0 PM DEMAND PLANNING MANAGER us Carmina Dick MD CHEMISTRY ORDERABLES Final Resul t Performing Organization Address [facility] de Phone Number INTERFACE SYSTEM Refer to clinic/hospital department * (ABNORMAL) POC GLUCOSE (06/06/2005 8:43 PM DEMAND PLANNING MANAGER) GLUCOSE POC 247(H) 65 - 109 mg/dL INTERFACE SYSTEM 06/06/2005 8:43 PM DEMAND PLANNING MANAGER us Patric Thomas MD POINT OF CARE TESTING Ceferino moore Result INTERFACE SYSTEM Refer to clinic/hospital department documented in this encounter Visit Diagnoses Diagnosis Acute myocardial infarction of other anterior wall, initial episode of care- Primary documented in this encounter
--- OUTSIDE RECORDS SUMMARY | 2025-02-05 14:26 | XMS_ITS | Encounter Summary ---
Author Organization [employer] [facility] Address [address] [place] [address] Care Team Providers Care Bilingual Inside Sales Representative Name Role Phone Unavailable Primary Care Provider Unavailabl e Encounter Details Date Type Department Care Team (Latest Contact Info) Description 10/12/2006 Outpatient Historical HIS [facility] RAD[facility]KA Navarro, Elena Baig MD [address] [place] [phone] Follow-Up Examination, Following Other Surgery (Primary Dx); Coronary Atherosclerosis of [place] Coronary Artery; Unspecified Pleural Effusion; Pulmonary Collapse Social History Tobacco Use Types Packs/Day Years Used Date Smoking Tobacco: Never Assessed Sex and Gender Information Value Date Recorded Sex Assigned at Not on file Legal 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
--- OUTSIDE RECORDS SUMMARY | 2025-02-05 14:26 | XMS_ITS | Encounter Summary ---
Author Organization [facility] Address [address] [facility] [place] [address] Care Team Providers Care Gluing Machine Offbearer Name Role Phone Ashwin Lawler MD Primary Care Provider [phone] Encounter Details Date Type Department Care Team (Late st Contact Info) Description 06/04/2019 Telephone [facility] [address] [place] [address] Jonnathan Schafer MD [facility] [address] Social History Tobacco Use Types [...] on file Legal Sex Male 6:30 AM FIELD ASSISTANT Gender Identity Not on file Sexual [...] and sees what happens. Patient CallBack number: [phone] D ASSISTANT documented in this encounter Plan of Treatment Not on file documented as of this encounter Visit Diagnoses Not on filedocumented in this encounter Care Teams Gluing Machine Offbearer Relationship Specialty Start Date End Date Ashwin Lawler MD PCP - General 09/26/17 documented as of this encounter
--- OUTSIDE RECORDS SUMMARY | 2025-02-05 14:26 | XMS_ITS | Encounter Summary ---
Author Organization [facility] Address [address] [place] [address] Care Team Providers Care Shoe Cutter Name Role Phone Unavailable Primary Care Provider Unavailabl e Encounter Details Date Type Department Care Team (Late st Contact Info) Description 10/12/2006 Outpatient Historical [facility] Cardiovas and Thor Surg at [facility] [address] [facility] [place] [address] Elena Navarro MD [address] [facility] [address] [place] [address] Social History Tobacco Use Types Packs/Day Years Used Date Smoking Tobacco: Never Assessed Sex and Gender Information Value Date Recorded Sex Assigned at Not on file Legal 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
--- OUTSIDE RECORDS SUMMARY | 2025-02-05 14:26 | XMS_ITS | Clinical Summary ---
Author Organization [facility] Address [facility] [place] [address] Care Team Providers Care Asbestos Handler Name Role Phone Unavailable Primary Care Provider [...]
--- OUTSIDE RECORDS SUMMARY | 2025-02-05 14:26 | XMS_ITS | Encounter Summary ---
Author Organization [employer] Address [address] [place] [address] Care Team Providers Care Digital Controls Technical Officer Name Role Phone Unavailable Primary Care Provider Unavailabl e Encounter Details Date Type Department Care Team (Late st Contact Info) Description 06/08/2005 Outpatient Historical [facility] ([facility] [address] [place] [phone] Sebastian Fletcher MD NO ADDRESS ON FILE Social History Tobacco Use Types Packs/Day Years Used Date Smoking Tobacco: Never Assessed Sex and Gender Information Value Date Recorded Sex Assigned at Not on file Legal Sex Male 4:42 AM WIRER Gender Identity Not on file Sexual Orientation Not on file documented as of this encounter Plan of Treatment Not on file documented as of this encounter Visit Diagnoses Not on filedocumented in this encounter
--- OUTSIDE RECORDS SUMMARY | 2025-02-05 14:26 | XMS_ITS | Encounter Summary ---
Author Organization [facility] Address [address] [place] [address] Care Team Providers Care Tape Edge Machine Operator Name Role Phone Unavailable Primary Care Provider Unavailabl e Encounter Details Date Type Department Care Team (Late st Contact Info) Description 09/07/2006 Outpatient Historical [facility] Cardiovas and Thor Surg at [facility] [address] [facility] [place] [address] Elena Navarro MD [address] [facility] [address] [place] [address] Social History Tobacco Use Types Packs/Day Years Used Date Smoking Tobacco: Never Assessed Sex and Gender Information Value Date Recorded Sex Assigned at Not on file Legal Sex Male 4:42 AM CORONER Gender Identity Not on file Sexual Orientation Not on file documented as of this encounter Plan of Treatment Not on file documented as of this encounter Visit Diagnoses Not on filedocumented in this encounter
--- OUTSIDE RECORDS SUMMARY | 2025-02-05 14:26 | XMS_ITS | Encounter Summary ---
Author Organization [facility] Address [address] [place] [address] Care Team Providers Care Licensed Chemical Spray Technician Name Role Phone Unavailable Primary Care Provider Unavailabl e Encounter Details Date Type Department Care Team (Latest Contact Info) Description 09/06/2006 Inpatient Historical [employer] JV Elena Navarro MD [facility] [address] [address] Patric Thomas MD [address] [facility] 162 [facility] [address] [place] [address] Coronary Atherosclerosis of [place] Coronary Artery (Primary Dx) Social History Tobacco Use Types Packs/Day Years Used Date Smoking Tobacco: Never Assessed Sex and Gender Information Value Date Recorded Sex Assigned at Not on file 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 Gender Identity Not on file Sexual Orientation [...] CARE TESTING Javier jadiel Performing Organization Address City/[facility] Co de Phone Number INTERFACE [...] CARE TESTING Javier jadiel Performing Organization Address [facility] Phone Number INTERFACE SYSTEM Refer to clinic/hospital department * (ABNORMAL) POC GLUCOSE (09/09/2006 11:06 AM CDT) GLUCOSE POC 226(H) 65 - 99 mg/dL INTERFACE SYSTEM 09/09/2006 11:0 6 AM CDT Patric Thomas MD POINT OF CARE TESTING Javier jadiel Performing Organization Address [facility] Phone Number INTERFACE SYSTEM Refer to clinic/hospital department * (ABNORMAL) POC GLUCOSE (09/09/2006 7:38 AM CDT) GLUCOSE POC 169(H) 65 - 99 mg/dL INTERFACE SYSTEM 09/09/2006 7:38 AM CDT Patric Thomas MD POINT OF CARE TESTING Javier jadiel Performing Organization Address [facility] Phone Number INTERFACE [...] MC HEMATOLOGY ORDERABLES Edited Performing Organization Address [facility] Phone Number INTERFACE [...] MC HEMATOLOGY ORDERABLES Edited Performing Organization Address [facility] Phone Number INTERFACE SYSTEM Refer to clinic/hospital department * MAGNESIUM LEVEL (09/09/2006 4:40 AM CDT) MAGNESIUM 2.5 1.5 - 2.5 mg/dL INTERFACE SYSTEM 09/09/2006 4:40 AM CDT Patric Thomas MD CHEMISTRY ORDERABLES Edit ed Performing Organization Address [facility] Phone Number INTERFACE [...] and non- Americans is available on the [facility] Intranet at: [email or web address] Select: Lab Policies and Procedures Select: Reference Ranges - GFR 09/09/2006 4:40 AM CDT us Kori MC CHEMISTRY ORDERABLES Edited Performing Organization Address [facility] de Phone Number INTERFACE SYSTEM Refer to clinic/hospital department * (ABNORMAL) POC GLUCOSE (09/08/2006 8:21 PM CDT) GLUCOSE POC 245(H) 65 - 99 mg/dL INTERFACE SYSTEM 09/08/2006 8:21 PM CDT Patric Thomas MD POINT OF CARE TESTING Javieradair duvall Performing Organization Address [facility] de Phone Number INTERFACE SYSTEM Refer to clinic/hospital department * (ABNORMAL) POC GLUCOSE (09/08/2006 4:45 PM CDT) GLUCOSE POC 190(H) 65 - 99 mg/dL INTERFACE SYSTEM 09/08/2006 4:45 PM CDT Patric Thomas MD POINT OF CARE TESTING Javier jadiel Performing Organization Address [facility] de Phone Number INTERFACE SYSTEM Refer to clinic/hospital department * (ABNORMAL) POC GLUCOSE (09/08/2006 11:32 AM CDT) GLUCOSE POC 140(H) 65 - 99 mg/dL INTERFACE SYSTEM 09/08/2006 11:3 2 AM CDT Patric Thomas MD POINT OF CARE TESTING Javier jadiel Performing Organization Address [facility] Phone Number INTERFACE SYSTEM Refer to clinic/hospital department * (ABNORMAL) POC GLUCOSE (09/08/2006 9:35 AM CDT) GLUCOSE POC 119(H) 65 - 99 mg/dL INTERFACE SYSTEM 09/08/2006 9:35 AM CDT Patric Thomas MD POINT OF CARE TESTING Javier jadiel Performing Organization Address [facility] Phone Number INTERFACE SYSTEM Refer to clinic/hospital department * (ABNORMAL) POC GLUCOSE (09/08/2006 6:01 AM CDT) GLUCOSE POC 134(H) 65 - 99 mg/dL INTERFACE SYSTEM 09/08/2006 6:01 AM CDT Patric Thomas MD POINT OF CARE TESTING Javier jadiel Performing Organization Address [facility] Phone Number INTERFACE SYSTEM Refer to clinic/hospital department * (ABNORMAL) POC GLUCOSE (09/08/2006 4:30 AM CDT) GLUCOSE POC 129(H) 65 - 99 mg/dL INTERFACE SYSTEM 09/08/2006 4:30 AM CDT Patric Thomas MD POINT OF CARE TESTING Javier jadiel Performing Organization Address [facility] Phone Number INTERFACE [...] HEMATOLOGY ORDERABLES Edit ed Performing Organization Address [facility] de Phone Number INTERFACE SYSTEM Refer [...] HEMATOLOGY ORDERABLES Edit ed Performing Organization Address [facility] de Phone Number INTERFACE SYSTEM Refer [...] patients with mechanical heart valves or post NH. Pediatric (12 years and under): 1.5 - [...] and non- Americans is available on the [facility] Intranet at: [email or web address] Select: Lab Policies and Procedures Select: Reference Ranges - GFR 09/08/2006 4:30 AM CDT Elena Navarro MD CHEMISTRY ORDERABLES Edite d Performing Organization Address [facility] de Phone Number INTERFACE SYSTEM Refer to clinic/hospital department * (ABNORMAL) CVR ONLY, CKMB/CK (09/08/2006 4:30 AM CDT) CKMB 3.8 <=6.7 ng/mL INTERFACE SYSTEM CKMB INTERP Negative INTERFAC E SYSTEM CK 232(H) 10 - 170 U/L INTERFACE SYSTEM CARDIAC RELATIVE INDEX 1.6 <=4.0 INTERFACE SYSTEM 09/08/2006 4:30 AM CDT Elena Navarro MD CHEMISTRY ORDERABLES Edite d Performing Organization Address [facility] de Phone Number INTERFACE SYSTEM Refer to clinic/hospital department * (ABNORMAL) POC GLUCOSE (09/07/2006 11:35 PM CDT) GLUCOSE POC 135(H) 65 - 99 mg/dL INTERFACE SYSTEM 09/07/2006 11:3 5 PM CDT Patric Thomas MD POINT OF CARE TESTING Javier jadiel Performing Organization Address [facility] de Phone Number INTERFACE SYSTEM Refer to clinic/hospital department * (ABNORMAL) POC GLUCOSE (09/07/2006 10:18 PM CDT) GLUCOSE POC 130(H) 65 - 99 mg/dL INTERFACE SYSTEM 09/07/2006 10:1 8 PM CDT Patric Thomas MD POINT OF CARE TESTING Javier jadiel Performing Organization Address [facility] Phone Number INTERFACE SYSTEM Refer to clinic/hospital department * MAGNESIUM LEVEL (09/07/2006 10:00 PM CDT) MAGNESIUM 2.1 1.5 - 2.5 mg/dL INTERFACE SYSTEM 09/07/2006 10:0 0 PM CDT Kori MC CHEMISTRY ORDERABLES Edited Performing Organization Address [facility] Phone Number INTERFACE SYSTEM Refer to clinic/hospital department * POTASSIUM LEVEL (09/07/2006 10:00 PM CDT) POTASSIUM 4.0 3.5 - 4.9 mmol/L INTERFACE SYSTEM 09/07/2006 10:0 0 PM CDT us Kori MC CHEMISTRY ORDERABLES Edited Performing Organization Address [facility] Phone Number INTERFACE SYSTEM Refer to clinic/hospital department * (ABNORMAL) CVR ONLY, CKMB/CK (09/07/2006 8:45 PM CDT) CKMB 5.2 <=6.7 ng/mL INTERFACE SYSTEM CKMB INTERP Negative INTERFAC E SYSTEM CK 260(H) 10 - 170 U/L INTERFACE SYSTEM CARDIAC RELATIVE INDEX 2.0 <=4.0 INTERFACE SYSTEM 09/07/2006 8:45 PM CDT Elena Navarro MD CHEMISTRY ORDERABLES Edite d Performing Organization Address [facility] Phone Number INTERFACE SYSTEM Refer to clinic/hospital department * POC GLUCOSE (09/07/2006 8:44 PM CDT) GLUCOSE POC 94 65 - 99 mg/dL INTERFACE SYSTEM 09/07/2006 8:44 PM CDT Patric Thomas MD POINT OF CARE TESTING Javier jadiel Performing Organization Address [facility] Phone Number INTERFACE SYSTEM Refer to clinic/hospital department * (ABNORMAL) POC GLUCOSE (09/07/2006 6:23 PM CDT) GLUCOSE POC 152(H) 65 - 99 mg/dL INTERFACE SYSTEM 09/07/2006 6:23 PM CDT Patric Thomas MD POINT OF CARE TESTING Javier jadiel Performing Organization Address [facility] Phone Number INTERFACE SYSTEM Refer to clinic/hospital department * (ABNORMAL) POC GLUCOSE (09/07/2006 4:48 PM CDT) GLUCOSE POC 191(H) 65 - 99 mg/dL INTERFACE SYSTEM 09/07/2006 4:48 PM CDT Patric Thomas MD POINT OF CARE TESTING Jvaier jadiel Performing Organization Address [facility] Phone Number INTERFACE SYSTEM Refer to clinic/hospital department * (ABNORMAL) POC GLUCOSE (09/07/2006 3:51 PM CDT) GLUCOSE POC 189(H) 65 - 99 mg/dL INTERFACE SYSTEM 09/07/2006 3:51 PM CDT Patric Thomas MD POINT OF CARE TESTING Javier jadiel Performing Organization Address [facility] Phone Number INTERFACE SYSTEM Refer to clinic/hospital department * POTASSIUM LEVEL (09/07/2006 3:45 PM CDT) POTASSIUM 4.1 3.5 - 4.9 mmol/L INTERFACE SYSTEM 09/07/2006 3:45 PM CDT us Elena Navarro MD CHEMISTRY ORDERABLES Edite d Performing Organization Address [facility] de Phone Number INTERFACE SYSTEM Refer to clinic/hospital department * (ABNORMAL) POC GLUCOSE (09/07/2006 2:45 PM CDT) GLUCOSE POC 226(H) 65 - 99 mg/dL INTERFACE SYSTEM 09/07/2006 2:45 PM CDT us Patric Thomas MD POINT OF CARE TESTING Javier jadiel Performing Organization Address [facility] de Phone Number INTERFACE SYSTEM Refer to clinic/hospital department * (ABNORMAL) POC GLUCOSE (09/07/2006 1:17 PM CDT) GLUCOSE POC 238(H) 65 - 99 mg/dL INTERFACE SYSTEM 09/07/2006 1:17 PM CDT us Patric Thomas MD POINT OF CARE TESTING Javier jadiel Performing Organization Address [facility] de Phone Number INTERFACE SYSTEM Refer [...] CHEMISTRY ORDERABLES Edit ed Performing Organization Address [facility] de Phone Number INTERFACE SYSTEM Refer [...] CHEMISTRY ORDERABLES Edite d Performing Organization Address [facility] de Phone Number INTERFACE SYSTEM Refer [...] HEMATOLOGY ORDERABLES Edit ed Performing Organization Address [facility] de Phone Number INTERFACE SYSTEM Refer [...] patients with mechanical heart valves or post NH. Pediatric (12 years and under): 1.5 - [...] HEMATOLOGY ORDERABLES Edit ed Performing Organization Address [facility] de Phone Number INTERFACE SYSTEM Refer to clinic/hospital department * MAGNESIUM LEVEL (09/07/2006 10:00 AM CDT) MAGNESIUM 2.2 1.5 - 2.5 mg/dL INTERFACE SYSTEM 09/07/2006 10:0 0 AM CDT us Elena Navarro MD CHEMISTRY ORDERABLES Edite d Performing Organization Address [facility] Phone Number INTERFACE [...] and non- Americans is available on the [facility] Intranet at: [email or web address] Select: Lab Policies and Procedures Select: Reference Ranges - GFR 09/07/2006 10:0 0 AM CDT us Elena Navarro MD CHEMISTRY ORDERABLES Edite d Performing Organization Address [facility] de Phone Number INTERFACE SYSTEM Refer [...] CHEMISTRY ORDERABLES Edit ed Performing Organization Address [facility] de Phone Number INTERFACE SYSTEM Refer [...] CHEMISTRY ORDERABLES Edit ed Performing Organization Address City/State/[facility] Co de Phone Number INTERFACE [...] CHEMISTRY ORDERABLES Edit ed Performing Organization Address City/State/[facility] Co de Phone Number INTERFACE SYSTEM Refer to clinic/hospital department * (ABNORMAL) POC GLUCOSE (09/07/2006 5:15 AM CDT) GLUCOSE POC 211(H) 65 - 99 mg/dL INTERFACE SYSTEM 09/07/2006 5:15 AM CDT Patric Thomas MD POINT OF CARE TESTING Javier jadiel Performing Organization Address [facility] Phone Number INTERFACE SYSTEM Refer to clinic/hospital department * (ABNORMAL) POC GLUCOSE (09/06/2006 9:43 PM CDT) GLUCOSE POC 186(H) 65 - 99 mg/dL INTERFACE SYSTEM 09/06/2006 9:43 PM CDT Patric Thomas MD POINT OF CARE TESTING Javier jadiel Performing Organization Address [facility] Phone Number INTERFACE SYSTEM Refer [...] MD URINE ORDERABLES Edited Performing Organization Address [facility] Phone Number INTERFACE [...] MD URINE ORDERABLES Edited Performing Organization Address [facility] Phone Number INTERFACE SYSTEM Refer to clinic/hospital department * (ABNORMAL) POC GLUCOSE (09/06/2006 2:22 PM CDT) GLUCOSE POC 174(H) 65 - 99 mg/dL INTERFACE SYSTEM 09/06/2006 2:22 PM CDT Patric Thomas MD POINT OF CARE TESTING Javier jadiel Performing Organization Address [facility] Phone Number INTERFACE SYSTEM Refer to clinic/hospital department * POC ACTIVATED CLOTTING TIME (09/06/2006 1:28 PM CDT) ACT POC 110 Seconds INTERFACE SYSTEM Comment: Note sheath pull range change effective 10/07/2005. ACT value for sheath pull at [facility] has been established to be < or = to 1 40. (See also Nursing Procedures for sheath pull in related nursing areas) 09/06/2006 1:2 8 PM CDT Patric Thomas MD POINT OF CARE TESTING Javier jadiel Performing Organization Address [facility] Phone Number INTERFACE SYSTEM Refer to clinic/hospital department * POC ACTIVATED CLOTTING TIME (09/06/2006 10:13 AM CDT) ACT POC 602 Seconds INTERFACE SYSTEM Comment: Note sheath pull range change effective 10/07/2005. ACT value for sheath pull at [facility] has been established to be < or = to 1 40. (See also Nursing Procedures for sheath pull in related nursing areas) COMMENT, ACT POC Rpt @ no charge INTERFACE SYSTEM 09/06/2006 10:1 3 AM CDT Patric Thomas MD POINT OF CARE TESTING Javieradair duvall Performing Organization Address [facility] Phone Number INTERFACE SYSTEM Refer to clinic/hospital department * POC ACTIVATED CLOTTING TIME (09/06/2006 10:13 AM CDT) ACT POC 755 Seconds INTERFACE SYSTEM Comment: Note sheath pull range change effective 10/07/2005. ACT value for sheath pull at [facility] has been established to be < or = to 1 40. (See also Nursing Procedures for sheath pull in related nursing areas) 09/06/2006 10:1 3 AM CDT Patric Thomas MD POINT OF CARE TESTING Javier jadiel Performing Organization Address [facility] Phone Number INTERFACE SYSTEM Refer to clinic/hospital department * (ABNORMAL) POC GLUCOSE (09/06/2006 7:44 AM CDT) COMMENT, GLU POC Notified RN INTERFACE SYSTEM GLUCOSE POC 231(H) 65 - 99 mg/dL INTERFACE SYSTEM 09/06/2006 7:44 AM CDT Patric Thomas MD POINT OF CARE TESTING Javier jadiel Performing Organization Address [facility] Phone Number INTERFACE SYSTEM Refer to clinic/hospital department documented in this encounter Visit Diagnoses Diagnosis Coronary atherosclerosis of [place] coronary artery- Primary documented in this encounter
--- OUTSIDE RECORDS SUMMARY | 2025-02-05 14:26 | XMS_ITS | Clinical Summary ---
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
--- OUTSIDE RECORDS SUMMARY | 2025-02-05 14:26 | XMS_ITS | Encounter Summary ---
Author Organization [facility] Address [address] [place] [address] Care Team Providers Care Line Painting Machine Operator Name Role Phone Unavailable Primary Care Provider Unavailabl e Encounter Details Date Type Department Care Team (Late st Contact Info) Description 09/10/2006 Outpatient Historical [facility] (Adt Cardiology-[facility]) [address] 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
--- OUTSIDE RECORDS SUMMARY | 2025-02-05 14:26 | XMS_ITS | Encounter Summary ---
Author Organization [facility] Address [address] [place] [address] Care Team Providers Care Manager Of Administration Name Role Phone Unavailable Primary Care Provider Unavailabl e Encounter Details Date Type Department Care Team (Late st Contact Info) Description 09/06/2006 Outpatient Historical [facility] Cardiovas and Thor Surg at [facility] [address] [facility] [place] [address] Elena Navarro MD [address] [facility] [address] [place] [address] Social History Tobacco Use Types Packs/Day Years Used Date Smoking Tobacco: Never Assessed Sex and Gender Information Value Date Recorded Sex Assigned at Not on file 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
--- OUTSIDE RECORDS SUMMARY | 2025-02-05 14:26 | XMS_ITS | Encounter Summary ---
Author Organization [facility] Address [address] [place] [address] Phone Care Team Providers Care Adobe Architect Name Role Phone Ashwin Lawler MD Primary Care Provider [phone] Encounter Details Date Type Department Care Team (Late st Contact Info) Description 01/03/2025 Results Follow-Up [facility] Cardiology [facility] Medical Office Building [address] [place] [address] Lebron Guerra MD PhD [address] [place] [address] ECG 12 lead Social History Tobacco Use [...] file Legal Sex Male 1:57 AM ORDER CALLER Gender Identity Not on file Sexual Orientation Not on file documented as of this encounter Plan of Treatment Upcoming Encounters Date Type Department Care Team (Latest Contact Info) Description 05/05/2025 8:30 AM ORDER CALLER Hospital Encounter [facility] Electrophysiology Lab 1 [place] [id number] Lebron Guerra MD PhD [address] [place] [address] Chronic systolic heart failure (HCC) 05/05/2025 8:30 AM ORDER CALLER - 05/05/2025 11:17 AM ORDER CALLER Surgery [facility] Electrophysiology Lab 1 [facility] [place] [address] Lebron Guerra MD PhD [address] [facility] [address] [place] [address] INSERT/REPLACE IMPLANTABLE CARDIOVERTER-DEFIB RILLATOR (ICD) dual chamber [address] documented as of this encounter Visit Diagnoses Not on filedocumented in this encounter Care Teams Adobe Architect Relationship Specialty Start Date End Date Ashwin Lawler MD [address] [place] [address] PCP - General Family Medicine 08/21/22 documented as of this encounter
--- OUTSIDE RECORDS SUMMARY | 2025-02-05 14:26 | XMS_ITS | Encounter Summary ---
Author Organization [facility] Address [address] [place] [address] Care Team Providers Care Distance Learning Administrator Name Role Phone Unavailable Primary Care Provider Unavailabl e Encounter Details Date Type Department Care Team (Late st Contact Info) Description 09/07/2006 Outpatient Historical [facility] Cardiovas and Thor Surg at [facility] [address] [facility] [address] [place] [address] Lily Dalton PA [address] 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
--- OUTSIDE RECORDS SUMMARY | 2025-02-05 14:26 | XMS_ITS | Encounter Summary ---
Author Organization [facility] Healthcare Address [address] [place] [address] Care Team Providers Care It Program Engagement Director Name Role Phone Ashwin Lawler MD Primary Care Provider [phone] Encounter Details Date Type Department Care Team (Late st Contact Info) Description 10/04/2024 Orders Only [facility] [address] [place] [address] Scanning, Provider Social History Tobacco Use [...] on file Legal Sex Male 1:57 AM ADMINISTRATIVE ACCOUNTANT Gender Identity Not on file Sexual Orientation Not on file documented as of this encounter Plan of Treatment Upcoming Encounters Date Type Department Care Team (Latest Contact Info) Description 05/05/2025 8:30 AM ADMINISTRATIVE ACCOUNTANT Hospital Encounter [facility] Electrophysiology Lab 1 [place] [address] Lebron Guerra MD PhD [address] [address] Chronic systolic heart failure (HCC) 05/05/2025 8:30 AM ADMINISTRATIVE ACCOUNTANT - 05/05/2025 11:17 AM ADMINISTRATIVE ACCOUNTANT Surgery [facility] Electrophysiology Lab [address] [place] [address] Lebron Guerra MD PhD [address] [address] INSERT/REPLACE IMPLANTABLE CARDIOVERTER-DEFIB RILLATOR (ICD) dual chamber [address] documented as of this encounter Procedures Procedure [...] on filedocumented in this encounter Care Teams It Program Engagement Director Relationship Specialty Start Date End Date Ashwin Lawler MD [address] [place] [address] PCP - General Family Medicine 08/21/22 documented as of this encounter
--- OUTSIDE RECORDS SUMMARY | 2025-02-05 14:26 | XMS_ITS | Encounter Summary ---
Author Organization [employer] Address [address] [place] [address] Care Team Providers Care Clinical Safety Specialist Name Role Phone Unavailable Primary Care Provider Unavailabl e Encounter Details Date Type Department Care Team (Late st Contact Info) Description 06/06/2005 Outpatient Historical [facility] [place] [facility] [address] 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
--- OUTSIDE RECORDS SUMMARY | 2025-02-05 14:27 | XMS_ITS | Clinical Summary ---
Author Organization [facility] Address [address] [place] [address] Phone Care Team Providers Care Ham Marker Name Role Phone Unavailable Primary Care [...]
--- OUTSIDE RECORDS SUMMARY | 2025-02-05 14:27 | XMS_ITS | Encounter Summary ---
Author Organization [facility] Address [address] [place] [address] Phone Care Team Providers Care Project Specialist Name Role Phone Ashwin Lawler MD Primary Care Provider [phone] Encounter Details Date Type Department Care Team (Late st Contact Info) Description 01/14/2025 Telephone [facility] Medicine Cardiology [address] [facility] Advanced Medicine 8th Floor [address] [place] [phone] Lebron Guerra MD PhD [address] [facility] [address] [place] [address] Social History Tobacco Use Types Packs/Day Years [...] on file 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 Electrophysiology Lab [address] [place] [address] Lebron Guerra MD PhD [address] [address] Chronic systolic heart failure (HCC) 05/05/2025 8:30 AM SENIOR ECONOMIST - 05/05/2025 11:17 AM SENIOR ECONOMIST Surgery [facility] Electrophysiology Lab [address] [place] [address] Lebron Guerra MD PhD [address] [address] INSERT/REPLACE IMPLANTABLE CARDIOVERTER-DEFIB RILLATOR (ICD) dual chamber [id number] documented as of this encounter Visit Diagnoses Not on filedocumented in this encounter Care Teams Project Specialist Relationship Specialty Start Date End Date Ashwin Lawler MD [address] [place] [address] PCP - General Family Medicine 08/21/22 documented as of this encounter
[2025-02-05] MEDS: CLINDAMYCIN 900 MG/D5W 50 ML 900 MG/50 ML PIGGYBACK 50 MG IVPB (14:42)
[2025-02-05] MEDS: MEROPENEM 1 GM in SODIUM CHLORIDE 0.9% IV 100 ML 200 ML IVPB (14:45)
--- NOTE | 2025-02-05 16:37 | PC.NURSE ---
Report to transport team
== END 2025-02-05 16:39 | disposition short-term general hospital (02) ==
PROVIDERS: Emergency Provider Emergency Medicine; PCP Family Medicine
DX: E11.621 Type 2 diabetes mellitus with foot ulcer (principal); L97.429 Non-pressure chronic ulcer of left heel and midfoot with unspecified severity; M72.6 Necrotizing fasciitis; M84.472A Pathological fracture, left ankle, initial encounter for fracture; E11.3593 Type 2 diabetes mellitus with proliferative diabetic retinopathy without macular edema, bilateral; E11.42 Type 2 diabetes mellitus with diabetic polyneuropathy; I50.22 Chronic systolic (congestive) heart failure; I11.0 Hypertensive heart disease with heart failure; I25.2 Old myocardial infarction; K44.9 Diaphragmatic hernia without obstruction or gangrene; F33.41 Major depressive disorder, recurrent, in partial remission; Z95.1 Presence of aortocoronary bypass graft; Z95.5 Presence of coronary angioplasty implant and graft; Z85.038 Personal history of other malignant neoplasm of large intestine; Z89.021 Acquired absence of right finger(s); Z90.49 Acquired absence of other specified parts of digestive tract; Z87.891 Personal history of nicotine dependence; Z79.84 Long term (current) use of oral hypoglycemic drugs; Z79.4 Long term (current) use of insulin; Z79.899 Other long term (current) drug therapy
CPT/HCPCS: 36415; 73701; 80053; 83605; 85025; 96361; 96365; 96366; 96367; 96368; 99285; J0692; J1836; J2185; J3373; J7030; Q9967